=== PATIENT | female | born 1940 | race Caucasian/White ===

== ENCOUNTER 2018-05-21 10:33 | Observation (INO) | payer OTHER ==
[2018-05-21] MEDS: TIOTROPIUM INHALER/CAPSULE (SPIRIVA) INH (08:00)
[2018-05-21] MEDS: IPRATROPIUM 0.5MG/ALBUTEROL 2.5MG INH SOL UD 3ML (DUONEB)(J7620) NEB ×4 (11:08→19:56)
[2018-05-21 11:19] LABS: BASO % 0.3 % (0.0-1.0); EOS # 0.3 10^3/uL (0.0-0.50); EOS % 3.2 % (0.0-3.0); HEMATOCRIT 47.1 % (36.0-47.0); HEMOGLOBIN 14.9 g/dl (12.0-15.5); IMMATURE GRANULOCYTE % 0.5 % (0-3.0); LYMPH # 2.2 10^3/uL (1.5-4.5); LYMPH % 27.8 % (24.0-44.0); MEAN CORPUSCULAR HEMOGLOBIN 29.9 pg (27.0-33.0); MEAN CORPUSCULAR HGB CONC 31.6 g/dl (32.0-36.5); MEAN CORPUSCULAR VOLUME 94.4 fl (80.0-96.0); MONO % 13.2 % (0.0-5.0); NEUTROPHILS # 4.4 10^3/uL (1.8-7.7); PLATELET COUNT, AUTOMATED 172 10^3/uL (150-450); RED BLOOD COUNT 4.99 10^6/uL (4.00-5.40); RED CELL DISTRIBUTION WIDTH 15.8 % (11.5-14.5); WHITE BLOOD COUNT 7.9 10^3/uL (4.0-10.0)
[2018-05-21 11:38] LABS: VENOUS BASE EXCESS -3.6 (-2.0-2.0); VENOUS O2 SATURATION 79.4 % (60.0-80.0); VENOUS PARTIAL PRESSURE CO2 53.4 mmHg (38.0-50.0); VENOUS PARTIAL PRESSURE O2 41.6 mmHg (30.0-50.0); VENOUS PH 7.271 UNITS (7.330-7.430); VENOUS STANDARD HCO3 21.1 MEQ/L; VENOUS TOTAL CO2 25.7 MEQ/L (24.0-28.0)
[2018-05-21 11:50] LABS: LACTIC ACID SEPSIS PROTOCOL 1.8 MMOL/L (0.4-2.0)
[2018-05-21 11:51] LABS: ALBUMIN 3.3 GM/DL (3.2-5.2); ALBUMIN/GLOBULIN RATIO 1.03 (1.00-1.93); ALKALINE PHOSPHATASE 102 U/L (45-117); ALT/SGPT 18 U/L (12-78); ANION GAP 6 MEQ/L (8-16); AST/SGOT 9 U/L (7-37); BILIRUBIN,DIRECT 0.1 MG/DL (0.0-0.2); BILIRUBIN,TOTAL 0.3 MG/DL (0.2-1.0); BLOOD UREA NITROGEN 22 MG/DL (7-18); CALCIUM LEVEL 8.2 MG/DL (8.8-10.2); CARBON DIOXIDE LEVEL 30 MEQ/L (21-32); CHLORIDE LEVEL 106 MEQ/L (98-107); CK-MB VALUE MASS 1.9 NG/ML (<3.6); CPK CREATINE PHOSPHOKINASE 100 U/L (26-192); CREATININE FOR GFR 1.44 MG/DL (0.55-1.30); GLOMERULAR FILTRATION RATE 37.6 (>39); GLUCOSE, FASTING 134 MG/DL (70-100); POTASSIUM SERUM 4.8 MEQ/L (3.5-5.1); SODIUM LEVEL 142 MEQ/L (136-145); THYROXINE (T4) 8.3 UG/DL (4.5-12.0); TOTAL PROTEIN 6.5 GM/DL (6.4-8.2); TROPONIN I < 0.02 NG/ML (< 0.10)
[2018-05-21 11:56] LABS: NT-PRO BNP 685 PG/ML (<450)
[2018-05-21] MEDS: methylPREDNISolone INJ 125 MG/2 ML VIAL (J2930) IV (12:52)
[2018-05-21] MEDS: ALBUTEROL SULFATE 2.5 MG/0.5 ML INH NEB SOLN INH (13:43)
[2018-05-21] MEDS ORDERED: HEPARIN SOD (PORCINE) 5000 UNITS/ML VIAL SC (14:00)
[2018-05-21] MEDS ORDERED: BISACODYL 10 MG SUPP PR (14:30)
[2018-05-21] MEDS ORDERED: ONDANSETRON 4 MG TAB (S0181) PO (14:30)
[2018-05-21] MEDS ORDERED: ACETAMINOPHEN TAB 650MG DOSE (2X325MG) PO (14:30)
[2018-05-21] MEDS ORDERED: DEXTROSE 50% 50 ML SYRINGE IV (15:00)
[2018-05-21] MEDS ORDERED: GLUCOSE 4 GM CHEW TABLET PO (15:00)
[2018-05-21] MEDS ORDERED: zolPIDEM TARTRATE 10MG TAB PO (15:00)
[2018-05-21] MEDS ORDERED: GLUCAGON FOR INJ 1 MG VIAL (J1610) SC (15:00)
[2018-05-21] MEDS ORDERED: ALBUTEROL SULFATE 2.5 MG/0.5 ML INH NEB SOLN INH (15:00)
[2018-05-21] MEDS ORDERED: GABAPENTIN 100 MG CAP PO (16:00)
[2018-05-21] MEDS: ALBUTEROL 90 MCG/ACT 8GM HFA INHALER INH (16:00)
[2018-05-21] MEDS ORDERED: HumaLOG INSULIN (NovoLOG) PER UNIT SC (17:30)
[2018-05-21] MEDS ORDERED: metFORMIN (GLUCOPHAGE) 500 MG TAB PO (17:30)
[2018-05-21] MEDS: predniSONE 20 MG TAB PO (19:02)
[2018-05-21] MEDS ORDERED: SYMBICORT 160/4.5MCG INHALER 6GM INH (20:00)
[2018-05-21] MEDS ORDERED: ROSUVASTATIN 10 MG TAB (CRESTOR) PO (21:00)
[2018-05-22] MEDS ORDERED: metFORMIN (GLUCOPHAGE) 500 MG TAB PO (07:30)
[2018-05-22] MEDS ORDERED: PANTOPRAZOLE 20 MG TAB PO (09:00)
[2018-05-22] MEDS ORDERED: ISOSORBIDE MON. (IMDUR) 30 MG XR TAB PO (09:00)
[2018-05-22] MEDS ORDERED: CLOPIDOGREL 75 MG TAB PO (09:00)
[2018-05-22] MEDS ORDERED: LEVEMIR (INSULIN DETEMIR) 1 UNITS/0.01ML SC ×2 (09:00)
[2018-05-22] MEDS ORDERED: LISINOPRIL 40 MG TAB PO (09:00)
== END 2018-05-21 20:22 | disposition left against medical advice (07) ==
LOC: M ED INP 20:20 → M ED 10:33 → M ED INP 14:28
DX: J44.1 Chronic obstructive pulmonary disease with (acute) exacerbation (principal); Z53.20 Procedure and treatment not carried out because of patient's decision for unspecified reasons; E66.01 Morbid (severe) obesity due to excess calories; I25.10 Atherosclerotic heart disease of native coronary artery without angina pectoris; F17.210 Nicotine dependence, cigarettes, uncomplicated; I10 Essential (primary) hypertension; E78.4 Other hyperlipidemia; Z98.61 Coronary angioplasty status; E11.9 Type 2 diabetes mellitus without complications; Z79.51 Long term (current) use of inhaled steroids; Z79.899 Other long term (current) drug therapy; Z79.84 Long term (current) use of oral hypoglycemic drugs; Z91.040 Latex allergy status; Z88.5 Allergy status to narcotic agent
CPT/HCPCS: J2930

== ENCOUNTER → 2018-06-01 | Outpatient (REF) | payer OTHER ==
[2018-06-01 10:32] LABS: ANION GAP 9 MEQ/L (8-16); BLOOD UREA NITROGEN 55 MG/DL (7-18); CALCIUM LEVEL 8.3 MG/DL (8.8-10.2); CARBON DIOXIDE LEVEL 30 MEQ/L (21-32); CHLORIDE LEVEL 102 MEQ/L (98-107); CREATININE FOR GFR 1.83 MG/DL (0.55-1.30); GLOMERULAR FILTRATION RATE 28.5 (>39); GLUCOSE, FASTING 86 MG/DL (70-100); POTASSIUM SERUM 3.9 MEQ/L (3.5-5.1); SODIUM LEVEL 141 MEQ/L (136-145)
== END ==
LOC: M LAB REF 09:27
DX: I10 Essential (primary) hypertension (principal)
CPT/HCPCS: 80048

== ENCOUNTER → 2018-06-17 | Outpatient (REF) | payer OTHER ==
[2018-06-17 13:08] LABS: ANION GAP 8 MEQ/L (8-16); BLOOD UREA NITROGEN 50 MG/DL (7-18); CALCIUM LEVEL 8.3 MG/DL (8.8-10.2); CARBON DIOXIDE LEVEL 27 MEQ/L (21-32); CHLORIDE LEVEL 103 MEQ/L (98-107); CREATININE FOR GFR 1.61 MG/DL (0.55-1.30); GLUCOSE, FASTING 117 MG/DL (70-100); POTASSIUM SERUM 4.3 MEQ/L (3.5-5.1); SODIUM LEVEL 138 MEQ/L (136-145)
== END ==
LOC: M LAB REF 11:59
DX: N17.9 Acute kidney failure, unspecified (principal)
CPT/HCPCS: 80048

== ENCOUNTER → 2018-07-13 | Outpatient (CLI) | payer OTHER | LOC: M RAD 13:50 | DX: N18.3 Chronic kidney disease, stage 3 (moderate) (principal); N28.1 Cyst of kidney, acquired | CPT/HCPCS: 76775 ==

== ENCOUNTER 2018-09-28 16:45 | Emergency (ER) | payer OTHER ==
[~2018-09-28] VITALS: Ht 154.9 cm; Wt 95.0 kg
[~2018-09-28 16:45] MED LIST: /ADVA50050 INH; /ESOM40CA PO; /MOXI40TA PO; ADV500INH INH; ALB2.5NEB INH; ALBUPOW9 XX; ALBUTEROL NEB INH; CLOP75TA2 PO; COMBIN INH; CRES20TA PO; FARX1TAB3 PO; GABA-1171 PO; HYDR50TA2 PO; INSUH10VL SUBQ; ISOS10TAB PO; ISOS30TA4 PO; LISI40TAB PO; LISI5TAB PO; METF-414 PO; METF500T13 PO; NORC10TA21 PO; NOVOLOG SC; PANT20TA2 PO; PRED1TAB32 PO; PRED50TA PO; TRES1INJ2 SC; TYLE325T5 PO; VICO5TAB PO; ZOLP-189 PO
--- NOTE | 2018-09-28 17:29 | REP ---
Clinical: Cough/dyspnea. Comparison: 05/21/2018 Findings: Stable cardiomegaly and diffuse chronic interstitial changes are appreciated. Superimposed interstitial edema as well as trace basilar atelectasis cannot be excluded. No focal consolidation. No effusion. No pneumothorax. Skeletal structures stable. Impression: Limited portable examination cannot exclude mild interstitial edema or trace basilar atelectasis. Electronically Signed by Rommel Hogan MD 09/28/2018 05:21 P
[2018-09-28 17:34] LABS: VENOUS BASE EXCESS 1.1 (-2.0-2.0); VENOUS HCO3 32.1 MEQ/L (23.0-27.0); VENOUS O2 SATURATION 76.9 % (60.0-80.0); VENOUS PARTIAL PRESSURE CO2 84.7 mmHg (38.0-50.0); VENOUS PH 7.196 UNITS (7.330-7.430); VENOUS STANDARD HCO3 24.9 MEQ/L; VENOUS TOTAL CO2 34.7 MEQ/L (24.0-28.0)
[2018-09-28 17:36] LABS: BASO % 0.3 % (0.0-1.0); EOS # 0.1 10^3/uL (0.0-0.50); EOS % 0.8 % (0.0-3.0); HEMATOCRIT 44.1 % (36.0-47.0); HEMOGLOBIN 13.8 g/dl (12.0-15.5); LYMPH # 1.4 10^3/uL (1.5-4.5); LYMPH % 14.5 % (24.0-44.0); MEAN CORPUSCULAR HEMOGLOBIN 31.2 pg (27.0-33.0); MEAN CORPUSCULAR HGB CONC 31.3 g/dl (32.0-36.5); MEAN CORPUSCULAR VOLUME 99.8 fl (80.0-96.0); MONO # 0.8 10^3/uL (0.0-0.8); MONO % 8.2 % (0.0-5.0); NEUTROPHILS # 7.2 10^3/uL (1.8-7.7); NEUTROPHILS % 74.9 % (36.0-66.0); PLATELET COUNT, AUTOMATED 196 10^3/uL (150-450); RED BLOOD COUNT 4.42 10^6/uL (4.00-5.40); WHITE BLOOD COUNT 9.7 10^3/uL (4.0-10.0)
[2018-09-28] MEDS ORDERED: FURO20TA2 (17:36)
[2018-09-28] MEDS ORDERED: IPRATROPIUM 0.5MG/ALBUTEROL 2.5MG INH SOL UD 3ML (DUONEB)(J7620) NEB ONE (17:45)
[2018-09-28 17:52] LABS: INR 1.04; PROTHROMBIN TIME 13.7 SECONDS (12.1-14.4)
[2018-09-28 18:08] LABS: ALBUMIN 2.7 GM/DL (3.2-5.2); ALT/SGPT 17 U/L (12-78); BILIRUBIN,DIRECT < 0.1 MG/DL (0.0-0.2); BILIRUBIN,TOTAL 0.3 MG/DL (0.2-1.0); BLOOD UREA NITROGEN 34 MG/DL (7-18); CALCIUM LEVEL 7.1 MG/DL (8.8-10.2); CARBON DIOXIDE LEVEL 25 MEQ/L (21-32); CHLORIDE LEVEL 103 MEQ/L (98-107); CPK CREATINE PHOSPHOKINASE 135 U/L (26-192); CREATININE FOR GFR 1.57 MG/DL (0.55-1.30); GLUCOSE, FASTING 511 MG/DL (70-100); MB/CK RELATIVE INDEX 2.07 (< OR =4); NT-PRO BNP 485 PG/ML (<450); POTASSIUM SERUM 5.3 MEQ/L (3.5-5.1); SODIUM LEVEL 135 MEQ/L (136-145); TOTAL PROTEIN 5.3 GM/DL (6.4-8.2); TROPONIN I < 0.02 NG/ML (< 0.10)
[2018-09-28 18:16] VITALS: BP 136/80
[2018-09-28] MEDS ORDERED: FUROSEMIDE 40 MG/4 ML VIAL (J1940) IV ONE (18:30)
[2018-09-28] MEDS ORDERED: ALBUTEROL SULFATE 2.5 MG/0.5 ML INH NEB SOLN NEB ONE (18:30)
[2018-09-28] MEDS ORDERED: methylPREDNISolone INJ 125 MG/2 ML VIAL (J2930) IV ONE (18:30)
[2018-09-28] MEDS ORDERED: PRED20TA PO (19:39)
--- NOTE | 2018-09-28 19:58 | REPVR ---
EXAM: US Bilateral Duplex Lower Extremity Veins EXAM DATE/TIME: 09/28/2018 7:38 PM CLINICAL HISTORY: 78 years old, female; Signs and symptoms; Swelling (edema) of limb; Lower extremity, bilateral; Additional info: Swelling ? dvt TECHNIQUE: Real-time duplex ultrasound of the Bilateral Lower Extremities with 2-D jones scale, color Doppler flow and spectral waveform analysis. Complete exam focused on the bilateral lower extremity veins. COMPARISON: No relevant prior studies available. FINDINGS: Right deep veins: The common femoral, femoral and popliteal veins are patent without thrombus. Normal compressibility, augmentation response and Doppler waveforms. Right superficial veins: Saphenofemoral junction is patent without thrombus. Left deep veins: The common femoral, femoral and popliteal veins are patent without thrombus. Normal compressibility, augmentation response and Doppler waveforms. Left superficial veins: Saphenofemoral junction is patent without thrombus. Soft tissues: 3.8 x 0.7 x 1.7cm right Zaragoza's cyst with calcification. IMPRESSION: No evidence of deep venous thrombosis in the common femoral to popliteal veins bilaterally. 3.8 x 0.7 x 1.7cm right Zaragoza's cyst with calcification. Electronically signed by: Rommel Galindo On 09/28/2018 19:57:57 PM
--- NOTE | 2018-09-29 06:02 | ECGEPIP ---
Stationary ECG Study [facility] - ED Test Date: 2018-09-28 Pat Name: BRIGID JAEGER Department: Room: - Gender: F Spool Sorter: KARLI : 1940 Requested By: Saranya Mcpherson Order Number: [id number] Reading MD: Myles Mace Measurements Intervals [place] Rate: 67 P: -9 MS: 171 QRS: 44 QRSD: 72 T: 112 QT: 388 QTc: 410 Interpretive Statements SINUS RHYTHM NONSPECIFIC T-WAVE ABNORMALITY SIMILAR TO 05/21/18 Electronically Signed On 09-29-2018 6:01:58 EST by Myles Mace
== END 2018-09-28 20:04 | disposition home or self-care (01) ==
LOC: M ED 16:45 → EDBD 16:45 → M ED 20:04
DX: J44.9 Chronic obstructive pulmonary disease, unspecified (principal); I50.9 Heart failure, unspecified; I25.10 Atherosclerotic heart disease of native coronary artery without angina pectoris; E78.5 Hyperlipidemia, unspecified; I11.0 Hypertensive heart disease with heart failure; F17.210 Nicotine dependence, cigarettes, uncomplicated; Z98.61 Coronary angioplasty status
CPT/HCPCS: 36600; 71045; 80048; 80076; 82550; 82553; 82803; 83605; 83880; 84443; 84484; 85025; 85610; 87040; 87486; 87581; 87633; 87798; 93005; 93041; 93970; 94640; 94760; 96374; 96375; 99285; J1940; J2930

== ENCOUNTER 2019-02-24 00:05 | Emergency (ER) | payer MEDICARE ==
[~2019-02-24] VITALS: Ht 154.9 cm; Wt 96.4 kg
[~2019-02-24 00:05] MED LIST changes: -/ADVA50050 INH; -/ESOM40CA PO; -/MOXI40TA PO; +ADVA1AER2 INH; +ALLO10TA PO; +AMBI10TA PO; +AMLO5TAB6 PO; +ASPI81TA85 PO; +AVEL1TAB2 PO; +CALC1CAP31 PO; +COMBAER6 INH; +CRES20TA2 PO; +ELIQ5TAB PO; +FURO20TA2; +FURO20TA2 PO; +FURO40TA2 PO; -ISOS10TAB PO; +ISOS1TAB12 PO; +LISI-538 PO; +LISI40TA PO; -LISI40TAB PO; +NEXI1CAP3 PO; +NITR0.4S14 SL; -NORC10TA21 PO; +NORC1TAB5 PO; +NYST1POW9 TOP; +PLAV1TAB2 PO; +PRED10PA2 PO; +PRED20TA PO
[2019-02-24] MEDS ORDERED: CALC1CAP31 PO (00:27)
[2019-02-24] MEDS ORDERED: DICL1GEL3 (00:27)
[2019-02-24] MEDS ORDERED: NOVOINJ3 SC (00:27)
[2019-02-24] MEDS ORDERED: NORCO, ANEXSIA 5/325MG TABLET (HYDROcodone/ACETAMINOPHEN) PO ONE (01:00)
--- NOTE | 2019-02-24 02:50 | REPVR ---
EXAM: CT Cervical Spine Without Contrast EXAM DATE/TIME: 02/24/2019 1:29 AM CLINICAL HISTORY: 79 years old, female; Radicular pain (radiculopathy); Cervical region; Prior surgery; Surgery date: 6+ months; Surgery type: 5-7 cervical fusion; Additional info: Right cervical radiculopathy, prior c5-7 fusion TECHNIQUE: Imaging protocol: Axial computed tomography images of the cervical spine without contrast. Coronal and sagittal reformatted images were created and reviewed. Radiation optimization: All CT scans at this facility use at least one of these dose optimization techniques: automated exposure control; mA and/or kV adjustment per patient size (includes targeted exams where dose is matched to clinical indication); or iterative reconstruction. COMPARISON: CT Spine,cervical w/o contrast 10/10/2018 12:05 PM FINDINGS: Vertebrae: No acute cervical spine fracture. The facet alignment is preserved bilaterally. The occipital condyles and C1-C2 articulations appear intact. There is stable fusion of the C5-C7 vertebral bodies. Mild anterolisthesis of C4 on C5 and C7 on T1. The cervical lordosis is mildly reversed. Hypertrophic degenerative changes are identified at the junction of the anterior C1 arch and dens process. A stable small cystic or lytic lesion is visualized at the base of the dens process, likely secondary to arthropathy. Discs/Spinal canal/Neural foramina: Spondylosis is visualized at multiple cervical levels. Facet arthropathy is identified at multiple cervical levels. Other bones/joints: Arthropathy is identified at the left sternoclavicular joint. Soft tissues: The prevertebral soft tissues are unremarkable. Atherosclerotic changes visualized. Mastoid air cells: Mild effusions within the mastoid air cells, right side greater than left. Dental: An impacted tooth is visualized within the right side of the mandible. Lungs: A few small nodules are identified at the right pulmonary apex, the largest measuring 3-4 mm. No pneumothorax, as visualized. IMPRESSION: 1. No acute cervical spine fracture. 2. There is stable fusion of the C5-C7 vertebral bodies. 3. Mild anterolisthesis of C4 on C5 and C7 on T1. 4. The cervical lordosis is mildly reversed. 5. Spondylosis is visualized at multiple cervical levels. 6. A few small nodules are identified at the right pulmonary apex, the largest measuring 3-4 mm. See recommendation below. 7. Additional findings described above. FLEISCHNER SOLID LESS THAN 6 MULTIPLE For patients at low risk (minimal or absent history of smoking and of other known risk factors), no routine follow-up. For patient at high risk (history of smoking or of other known risk factors), recommend optional CT at 12 months. (Misha et al., Fleischner Society, 2017) Electronically signed by: Lonnie Hayden On 02/24/2019 02:50:03 AM
--- NOTE | 2019-02-24 03:10 | REPVR ---
EXAM: US Duplex Right Upper Extremity Veins, Limited EXAM DATE/TIME: 02/24/2019 1:22 AM CLINICAL HISTORY: 79 years old, female; Pain; Arn, upper; Right; Additional info: R/O dvt TECHNIQUE: Imaging protocol: Real-time Duplex ultrasound of the Right Upper Extremity with 2-D jones scale, color Doppler flow and spectral waveform analysis. Limited exam focused on the right upper extremity veins. COMPARISON: No relevant prior studies available. FINDINGS: Right deep veins: Axillary and brachial veins are patent throughout without thrombus. Normal compressibility and/or augmentation response. Visualized internal jugular vein is patent. Evaluation of the subclavian vein is limited. The subclavian vein is mildly heterogeneous in echogenicity, although flow is visualized within this vessel. Paired brachial veins are visualized, which are patent. Right superficial veins: Visualized cephalic and basilic veins are patent without thrombus. Soft tissues: Unremarkable. IMPRESSION: No evidence of occlusive deep vein thrombosis involving the right upper extremity, as visualized. Electronically signed by: Lonnie Hayden On 02/24/2019 03:09:48 AM
[2019-02-24 03:20] VITALS: BP 154/76
--- NOTE | 2019-02-24 06:19 | ECGEPIP ---
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
--- NOTE | 2019-02-25 14:02 | ED PDOC ---
Post-Departure Follow-Up michelle dow faxed formal report of ct c spine for fu Monique Rodrigues MD February 25, 2019 14:02
== END 2019-02-24 03:30 | disposition home or self-care (01) ==
LOC: M ED 00:05
DX: M54.12 Radiculopathy, cervical region (principal); E11.9 Type 2 diabetes mellitus without complications; I11.0 Hypertensive heart disease with heart failure; I50.9 Heart failure, unspecified; I48.91 Unspecified atrial fibrillation; G62.9 Polyneuropathy, unspecified; Z95.5 Presence of coronary angioplasty implant and graft; Z79.899 Other long term (current) drug therapy; Z79.82 Long term (current) use of aspirin; Z79.01 Long term (current) use of anticoagulants; Z88.5 Allergy status to narcotic agent; Z88.8 Allergy status to other drugs, medicaments and biological substances; Z91.040 Latex allergy status; F17.210 Nicotine dependence, cigarettes, uncomplicated

== ENCOUNTER 2019-03-01 05:36 | Emergency (ER) | payer MEDICARE ==
[~2019-03-01] VITALS: Ht 154.9 cm; Wt 92.7 kg
[~2019-03-01 05:36] MED LIST changes: +DICL1GEL3; +NOVOINJ3 SC
[2019-03-01 06:28] LABS: BASO % 0.4 % (0.0-1.0); EOS # 0.2 10^3/uL (0.0-0.50); EOS % 2.2 % (0.0-3.0); HEMATOCRIT 44.2 % (36.0-47.0); HEMOGLOBIN 14.2 g/dl (12.0-15.5); LYMPH # 1.8 10^3/uL (1.5-4.5); LYMPH % 21.8 % (24.0-44.0); MEAN CORPUSCULAR HEMOGLOBIN 30.3 pg (27.0-33.0); MEAN CORPUSCULAR HGB CONC 32.1 g/dl (32.0-36.5); MEAN CORPUSCULAR VOLUME 94.4 fl (80.0-96.0); MONO # 1.5 10^3/uL (0.0-0.8); NEUTROPHILS # 4.5 10^3/uL (1.8-7.7); NEUTROPHILS % 56.2 % (36.0-66.0); PLATELET COUNT, AUTOMATED 175 10^3/uL (150-450); RED BLOOD COUNT 4.68 10^6/uL (4.00-5.40)
[2019-03-01] MEDS ORDERED: PREGABALIN 75 MG CAP(LYRICA) PO ONE (06:30)
[2019-03-01 06:46] LABS: BLOOD UREA NITROGEN 35 MG/DL (7-18); CALCIUM LEVEL 9.2 MG/DL (8.8-10.2); CARBON DIOXIDE LEVEL 30 MEQ/L (21-32); CHLORIDE LEVEL 101 MEQ/L (98-107); CPK CREATINE PHOSPHOKINASE 146 U/L (26-192); GLOMERULAR FILTRATION RATE 38.7 (>39); GLUCOSE, FASTING 119 MG/DL (70-100); MB/CK RELATIVE INDEX 1.44 (< OR =4); NT-PRO BNP 230 PG/ML (<450); SODIUM LEVEL 138 MEQ/L (136-145); TROPONIN I < 0.02 NG/ML (< 0.10)
[2019-03-01] MEDS ORDERED: LISI-538 PO (06:59)
[2019-03-01] MEDS ORDERED: GABA-1171 PO (06:59)
[2019-03-01] MEDS ORDERED: ELIQ5TAB PO (06:59)
[2019-03-01] MEDS ORDERED: ALPR0.25 PO (06:59)
[2019-03-01] MEDS ORDERED: KETO2CR TOP (06:59)
--- NOTE | 2019-03-01 08:10 | REPVR ---
EXAM: US Duplex Right Upper Extremity Veins, Limited EXAM DATE/TIME: 03/01/2019 7:34 AM CLINICAL HISTORY: 79 years old, female; Pain; Hand; Right; Additional info: Right arm pain TECHNIQUE: Imaging protocol: Real-time Duplex ultrasound of the Right Upper Extremity with 2-D jones scale, color Doppler flow and spectral waveform analysis. Limited exam focused on the right upper extremity veins. COMPARISON: US DUPLEX EXT UPPER VEINS UNILATE RIGHT 02/24/2019 12:54 AM FINDINGS: Right deep veins: Unremarkable. Axillary and brachial veins are patent throughout without thrombus. Normal Doppler waveforms. Normal compressibility and/or augmentation response. Visualized internal jugular and subclavian veins are patent. Right superficial veins: Unremarkable. Visualized cephalic and basilic veins are patent without thrombus. Soft tissues: Unremarkable. IMPRESSION: No acute findings. No evidence of deep vein thrombosis. Electronically signed by: Olive Haynes On 03/01/2019 08:09:50 AM
[2019-03-01 08:30] VITALS: BP 177/71
--- NOTE | 2019-03-01 08:33 | REP ---
Clinical: Cough and dyspnea . Comparison: 10/10/2018 . Findings: The mediastinum and cardiac silhouette are stable. Mild cardiomegaly and chronic interstitial changes are again suggested. No obvious acute consolidation, effusion, or pneumothorax. Skeletal structures are intact. Impression: Chronic stable changes. Electronically Signed by Rommel Hogan MD 03/01/2019 08:25 A
--- NOTE | 2019-03-01 08:35 | REP ---
Clinical: Right upper extremity pain. Technique: AP, lateral, bilateral oblique views of the right hand. Findings: Generalized osteodystrophy and moderate arthritic degenerative changes are appreciated throughout the hand and wrist. No acute fracture or dislocation. No subcutaneous emphysema or radiodense foreign body. Impression: Generalized osteodystrophy and arthritic degenerative changes. Electronically Signed by Rommel Hogan MD 03/01/2019 08:27 A
--- NOTE | 2019-03-01 08:36 | REP ---
Clinical: Right upper extremity pain. Technique: AP and lateral views of the right humerus. Findings: Age-related changes at the shoulder and elbow joint noted. No acute fracture dislocation. No subcutaneous emphysema or radiodense foreign body. Impression: Essentially age-appropriate right humerus radiographs. Electronically Signed by Rommel Hogan MD 03/01/2019 08:28 A
[2019-03-01] MEDS ORDERED: physical therapy (08:49)
--- NOTE | 2019-03-01 08:59 | REP ---
Clinical: Right upper extremity pain. Technique: AP and lateral views of the right forearm. Findings: Generalized age-related changes are appreciated. No acute fracture or dislocation. No significant foreign body. No subcutaneous emphysema. Vascular calcifications noted. Impression: No obvious acute pathology. Electronically Signed by Rommel Hogan MD 03/01/2019 08:50 A
[2019-03-01] MEDS ORDERED: LIDOCAINE 5% (LIDODERM) PATCH TD ONE (09:15)
[2019-03-01] MEDS ORDERED: ISOSORBIDE MON. (ISMO,MONOKET) 20 MG TAB PO ONE (09:15)
[2019-03-01] MEDS ORDERED: CLOPIDOGREL 75 MG TAB PO ONE (09:15)
[2019-03-01] MEDS ORDERED: LISINOPRIL 20 MG TAB PO ONE (09:15)
[2019-03-01] MEDS ORDERED: FUROSEMIDE 40 MG TAB PO ONE (09:15)
[2019-03-01] MEDS ORDERED: ISOSORBIDE MON. (IMDUR) 30 MG XR TAB PO ONE (09:45)
[2019-03-01] MEDS ORDERED: LYRI75CA PO (09:49)
[2019-03-01] MEDS ORDERED: LIDO5DIS41 TOP (09:51)
[2019-03-01 09:54] VITALS: BP 177/71
[2019-03-01] MEDS ORDERED: **NOTE PATIENT COMMENT** MISC XX SCH (21:00)
--- NOTE | 2019-03-01 21:01 | ECGEPIP ---
[facility] - ED Test Date: 2019-03-01 Pat Name: BRIGID JAEGER Department: Room: - Gender: Female Manager Service Desk: richa : 1940 Requested By: JAIR Sanders Order Number: [id number] Reading MD: Saranya Mcpherson Measurements Intervals [place] Rate: 61 P: 30 [place]: 185 QRS: 52 QRSD: 86 T: 110 QT: 416 QTc: 421 Interpretive Statements SINUS RHYTHM NONSPECIFIC T-WAVE ABNORMALITY Electronically Signed on 03-01-2019 21:01:01 EDT by Saranya Mcpherson
== END 2019-03-01 10:02 | disposition home or self-care (01) ==
LOC: M ED 05:36
DX: M54.2 Cervicalgia (principal); R06.02 Shortness of breath; J44.9 Chronic obstructive pulmonary disease, unspecified; I48.91 Unspecified atrial fibrillation; Z79.899 Other long term (current) drug therapy; Z79.4 Long term (current) use of insulin; Z79.01 Long term (current) use of anticoagulants; Z88.5 Allergy status to narcotic agent; Z88.8 Allergy status to other drugs, medicaments and biological substances; Z91.040 Latex allergy status; F17.210 Nicotine dependence, cigarettes, uncomplicated

== ENCOUNTER 2019-03-26 11:23 | Inpatient (IN) | payer MEDICARE ==
[~2019-03-26] VITALS: Ht 154.9 cm; Wt 103.6 kg
[~2019-03-26 11:23] MED LIST changes: +ALPR0.25 PO; +KETO2CR TOP; +LIDO5DIS41 TOP; +LYRI75CA PO; +physical therapy
[2019-03-26 12:07] LABS: BASO % 0.2 % (0.0-1.0); EOS # 0.1 10^3/uL (0.0-0.50); HEMATOCRIT 40.8 % (36.0-47.0); HEMOGLOBIN 12.9 g/dl (12.0-15.5); LYMPH # 1.8 10^3/uL (1.5-4.5); MEAN CORPUSCULAR HEMOGLOBIN 30.4 pg (27.0-33.0); MEAN CORPUSCULAR HGB CONC 31.6 g/dl (32.0-36.5); MONO # 0.9 10^3/uL (0.0-0.8); MONO % 8.6 % (0.0-5.0); NEUTROPHILS # 7.6 10^3/uL (1.8-7.7); NEUTROPHILS % 72.8 % (36.0-66.0); PLATELET COUNT, AUTOMATED 186 10^3/uL (150-450); RED BLOOD COUNT 4.25 10^6/uL (4.00-5.40); WHITE BLOOD COUNT 10.4 10^3/uL (4.0-10.0)
--- NOTE | 2019-03-26 12:30 | REP ---
CHEST, PORTABLE: AP portable view of the chest is performed and compared to prior study, 03/01/2019. There is mild cardiomegaly and vascular congestion with increased interstitial markings in the lung bases, compatible with interstitial edema. There is calcification of the thoracic aorta. The mediastinal silhouette is unchanged. IMPRESSION: Findings compatible with mild CHF and interstitial edema. Electronically Signed by Hossein Larson MD 03/26/2019 12:53 P
[2019-03-26 12:34] LABS: CALCIUM LEVEL 8.8 MG/DL (8.8-10.2); CREATININE FOR GFR 1.51 MG/DL (0.55-1.30); GLOMERULAR FILTRATION RATE 35.5 (>39); POTASSIUM SERUM 5.2 MEQ/L (3.5-5.1)
[2019-03-26] MEDS ORDERED: DICL1GEL3 TOP (13:03)
[2019-03-26] MEDS ORDERED: LYRI75CA PO (13:03)
[2019-03-26] MEDS ORDERED: GABA-1171 PO (13:03)
[2019-03-26] MEDS ORDERED: PRED10TA2 PO (13:03)
[2019-03-26] MEDS ORDERED: ELIQ2.5T PO (13:03)
[2019-03-26] MEDS ORDERED: LIDO1PAD TOP (13:03)
[2019-03-26] MEDS ORDERED: dexameTHASONE 20 MG/5 ML VIAL (J1100) IV ONE (13:45)
[2019-03-26] MEDS ORDERED: IPRATROPIUM 0.5MG/ALBUTEROL 2.5MG INH SOL UD 3ML (DUONEB)(J7620) NEB ONE (13:45)
[2019-03-26] MEDS ORDERED: ALBUTEROL SULFATE 2.5 MG/0.5 ML INH NEB SOLN INH ONE (13:45)
[2019-03-26] MEDS ORDERED: FUROSEMIDE 40 MG/4 ML VIAL (J1940) IV ONE (13:45)
[2019-03-26 14:39] VITALS: BP 158/72
[2019-03-26] MEDS ORDERED: GLUCOSE 4 GM CHEW TABLET PO PRN (15:00)
[2019-03-26] MEDS ORDERED: IPRATROPIUM 0.5MG/ALBUTEROL 2.5MG INH SOL UD 3ML (DUONEB)(J7620) NEB PRN (15:00)
[2019-03-26] MEDS ORDERED: GLUCAGON FOR INJ 1 MG VIAL (J1610) SC PRN (15:00)
[2019-03-26] MEDS ORDERED: DEXTROSE 50% 50 ML SYRINGE IV PRN (15:00)
[2019-03-26] MEDS: cefTRIAXone SOD 2 GM in D5W MINI-BAG PLUS 50 ML IV SCH (15:37)
[2019-03-26 16:00] VITALS: BP 135/61
[2019-03-26] MEDS: DOXYCYCLINE HYCLATE 100 MG in D5W MINI-BAG PLUS 100 ML IV SCH (16:14)
[2019-03-26] MEDS: FUROSEMIDE 100 MG/10 ML VIAL (J1940) IV SCH (17:17)
[2019-03-26] MEDS: HumaLOG INSULIN (NovoLOG) PER UNIT SC SCH ×2 (17:18→21:33)
--- NOTE | 2019-03-26 17:37 | HPE ---
DATE OF ADMISSION: 03/26/2019 PRIMARY CARE PROVIDER: JACKIE Padron PRINCIPLE DIAGNOSES: Exacerbation of COPD secondary to bronchitis in patient with diastolic congestive heart failure. HISTORY: 79-year-old patient of Nikko Clifton. She has been treated as an outpatient for what seems to be exacerbation of COPD with prednisone and nebulized bronchodilators. Sputum became green, thick and her shortness of breath and increased. Lower extremity edema increased and she developed dyspnea on exertion. She was brought to the emergency room. Oxygen saturations in the mid 80s so she is being admitted for inpatient treatment. PAST MEDICAL HISTORY: She has a past history of COPD. She continues to smoke, having quit just a week ago. I do not have spirometric data to quantitate her COPD, but she has frequent exacerbations requiring steroid therapy and she is on chronic bronchodilator therapy at home. She had an echocardiogram done 10/2018, ejection fraction 60%. Aortic sclerosis without significant stenosis. Grade 2 diastolic dysfunction noted. She has atrial fibrillation for which she is on chronic anticoagulant therapy with Eliquis. Has history of type 2 diabetes for which she is on insulin, both basal insulin and daily sliding scale. OTHER PAST HISTORY: Hypertensive heart disease. Hyperlipidemia. Gastroesophageal reflux disease (GERD). Coronary artery disease, status post stenting, unspecified coronary artery about 10 years ago. Diabetic neuropathy. Morbid obesity. Dyspepsia for which she is on chronic PPI therapy. ALLERGIES: CODEINE causes a headache. GABAPENTIN causes a headache. OXYCODONE causes unknown reaction, trouble breathing. FAMILY HISTORY: Noncontributory. SOCIAL HISTORY: Smoked a half pack to pack a day for 40 years, quit a week ago. Denies any alcohol use. Recently . REVIEW OF SYSTEMS: Denies hemoptysis, unexplained weight loss, chest pain, palpitations, syncope, epistaxis, rectal bleeding, hematuria. MEDICATIONS: See intake summary. PHYSICAL EXAMINATION: VITAL SIGNS: Per flow sheet. General appearance: Chronically ill appearing obese, looks dyspneic at rest. HEENT: Pupils equal, reactive to light. TMs and oropharynx benign. NECK: No masses. LUNGS: Expiratory wheezes all chau. Scattered rhonchi. HEART: Irregular rate and rhythm. 1/6 systolic ejection murmur. ABDOMEN: Soft, obese. Nontender. No masses. EXTREMITIES: 1+ peripheral edema. Venous stasis dermatitis. Some decreased pulses in feet, probably from the edema. Moves arms and legs with equal strength. Chest x-ray shows increased interstitial markings consistent with fluid. Telemetry shows atrial fibrillation, controlled rate. White count 10.3, hemoglobin 13.7, platelets 183. Sodium 134, potassium 5.2, BUN 32, creatinine 1.5. Glucose 136. IMPRESSION: 1. Exacerbation of COPD from presumed bronchitis. To look at her chest x-ray, I think there might be an infiltrate in there. She is quite dyspneic. I think it is a combination of diastolic heart failure and COPD exacerbation. Towards the COPD, I have ordered nebulized bronchodilator, intravenous steroids, Solu-Medrol 60 mg IV every 12 hours, supplemental oxygen to make oxygen saturation greater than 90% and empiric antibiotic therapy with Rocephin 2 grams IV daily and doxycycline 100 mg twice a day. Sputum studies have been ordered. Ordering a noncontrast CT of the chest and try to delineate the infiltrates better. 2. Diastolic congestive heart failure with exacerbation. PLAN: 1. She is on restricted salt diet of 1800 mL per day. Intravenous furosemide, 80 mg every 6 hours as needed. May need a diuresis of 1.2 liters per day. Continue her angiotensin-converting enzyme (MANDEEP) inhibitor therapy. Close attention to potassium. She had an echocardiogram done in October so this is not being repeated. She has known diastolic failure. 2. Stage III chronic kidney disease. Daily labs have been ordered. She follows with Dr. Toro, felter tennis balls. Renal function is currently at baseline. Avoid syndrome of nonsteroidal anti-inflammatory drug (NSAID). Dose medication appropriately for renal function. 3. Diabetes. She is on a sliding scale of insulin coverage per protocol. I have reduced her basal insulin to 40 units per day in the face of an enforced hospital based diet. 4. Hypertensive heart disease. Continue lisinopril 20 mg daily. 5. Atrial fibrillation. Her rate is controlled. She is on no chronotropic agents and maintains a normal heart rate. Suggested some element of AV dysfunction. She is on telemetry. Continue her Eliquis. 6. Tobacco abuse. Smoking cessation was discussed. 7. Coronary artery disease. Status post stent about 10 years ago. Continue her aspirin. 8. Hyperlipidemia. Continue her rosuvastatin. Hospitalist will assume her care after admission.
--- NOTE | 2019-03-26 17:37 | REP ---
CT of the chest without IV contrast: Comparison is the portable chest performed earlier today. There are no infiltrates. There are no pleural effusions. There is a 15 mm left upper lobe ground-glass density on image 19. There is a linear density anteriorly in the right upper lobe on image 28. This could represent discoid atelectasis or parenchymal scar. There is no mediastinal lymph node enlargement. There is no axillary lymph node enlargement. The study is insensitive for hilar lymph node enlargement in the absence of IV contrast. The thoracic aorta is unremarkable except for calcified atheroma. Cardiac size is normal. There is no pericardial effusion. The visualized upper abdominal contents are unremarkable. Impression: There are no infiltrates or pleural effusions. There is a 15 ml left upper lobe ground-glass density. Recommend follow-up in 3- 4 months. Right upper lobe linear density likely parenchymal scar or discoid atelectasis. Electronically Signed by Hossein Francis MD 03/26/2019 05:28 P
[2019-03-26] MEDS: IPRATROPIUM 0.5MG/ALBUTEROL 2.5MG INH SOL UD 3ML (DUONEB)(J7620) NEB SCH (21:14)
[2019-03-26] MEDS: APIXABAN 2.5 MG TAB (ELIQUIS) PO SCH (21:33)
[2019-03-26] MEDS: PREGABALIN 75 MG CAP(LYRICA) PO SCH (21:33)
[2019-03-26] MEDS: ROSUVASTATIN 10 MG TAB (CRESTOR) PO SCH (21:33)
[2019-03-26] MEDS: KETOCONAZOLE 2% CREAM TOP SCH (21:34)
[2019-03-26 22:00] VITALS: BP 130/60
[2019-03-26] MEDS: guaiFENesin SYRUP 200 MG/10 ML UDC PO PRN (22:52)
[2019-03-27] VITALS (7 sets, daily range): BP systolic 115–153; BP diastolic 50–69; O2SAT 91
[2019-03-27] MEDS: FUROSEMIDE 100 MG/10 ML VIAL (J1940) IV SCH ×2 (00:17→05:57)
[2019-03-27] MEDS: IPRATROPIUM 0.5MG/ALBUTEROL 2.5MG INH SOL UD 3ML (DUONEB)(J7620) NEB SCH ×4 (01:24→20:00)
[2019-03-27] MEDS: DOXYCYCLINE HYCLATE 100 MG in D5W MINI-BAG PLUS 100 ML IV SCH (04:31)
[2019-03-27] MEDS: guaiFENesin SYRUP 200 MG/10 ML UDC PO PRN ×3 (04:32→11:33)
[2019-03-27 05:02] LABS: HEMATOCRIT 39.7 % (36.0-47.0); MEAN CORPUSCULAR HEMOGLOBIN 30.7 pg (27.0-33.0); MEAN CORPUSCULAR HGB CONC 32.7 g/dl (32.0-36.5); MEAN CORPUSCULAR VOLUME 93.6 fl (80.0-96.0); PLATELET COUNT, AUTOMATED 194 10^3/uL (150-450); RED BLOOD COUNT 4.24 10^6/uL (4.00-5.40); WHITE BLOOD COUNT 8.4 10^3/uL (4.0-10.0)
[2019-03-27 05:20] LABS: CALCIUM LEVEL 8.9 MG/DL (8.8-10.2); CREATININE FOR GFR 1.63 MG/DL (0.55-1.30); GLOMERULAR FILTRATION RATE 32.5 (>39); POTASSIUM SERUM 4.4 MEQ/L (3.5-5.1)
[2019-03-27] MEDS: methylPREDNISolone INJ 125 MG/2 ML VIAL (J2930) IV SCH ×2 (05:57→18:32)
[2019-03-27] MEDS: HumaLOG INSULIN (NovoLOG) PER UNIT SC SCH ×4 (09:03→20:43)
[2019-03-27] MEDS: APIXABAN 2.5 MG TAB (ELIQUIS) PO SCH ×2 (10:03→20:44)
[2019-03-27] MEDS: ALPRAZolam 0.25 MG TAB PO SCH (10:03)
[2019-03-27] MEDS: PANTOPRAZOLE 20 MG TAB PO SCH (10:03)
[2019-03-27] MEDS: LEVEMIR (INSULIN DETEMIR) 1 UNITS/0.01ML SC SCH (10:03)
[2019-03-27] MEDS: ASPIRIN 81 MG ENTERIC TAB PO SCH (10:03)
[2019-03-27] MEDS: LISINOPRIL 20 MG TAB PO SCH (10:04)
[2019-03-27] MEDS: PREGABALIN 75 MG CAP(LYRICA) PO SCH ×2 (10:04→20:44)
[2019-03-27] MEDS: ISOSORBIDE MON. (IMDUR) 30 MG XR TAB PO SCH (10:04)
[2019-03-27] MEDS: ALLOPURINOL 100 MG TAB PO SCH (10:04)
[2019-03-27] MEDS: KETOCONAZOLE 2% CREAM TOP SCH ×2 (10:05→20:44)
[2019-03-27] MEDS: NYSTATIN 100,000 UNITS/GM TOPICAL PWD 15 GM TOP PRN (10:09)
[2019-03-27] MEDS ORDERED: CEPACOL LOZENGE PO PRN (11:30)
[2019-03-27] MEDS: SYMBICORT 160/4.5MCG INHALER 6GM INH SCH ×2 (12:26→21:27)
[2019-03-27] MEDS ORDERED: SLF 3 ML SYR IV PRN (12:30)
--- NOTE | 2019-03-27 12:51 | IPNPDOC ---
Date Seen The patient was seen on 03/27/19. Progress Note SUBJECTIVE: Patient is a 79-year-old female with shortness of breath. Patient is evaluated at bedside this morning. She is sitting up in a chair at bedside. She continues to experience shortness of breath with minimal exertion. She does not wear oxygen at home. She does smoke. She was coughing which was productive of yellow/green phlegm. No fevers, night sweats, but has been e xperiencing chills. She had to ask for a more blankets. Admits to a sore throat. Does not report any lower extremity swelling. Says that prior to her presentation to the hospital she was gasping for air and struggling to breath. She sleeps on four pillows at night, but that is typical for her. OBJECTIVE PHYSICAL EXAMINATION: VITAL SIGNS: Please see below. GENERAL: Well nourished, well developed female, alert and conversant, answers questions appropriately, no acute distress. HEENT: Atraumatic, normocephalic, PERRL, EOMI, oral mucosa appears pink and moist, nasal septum appears midline, nares are patent. CARDIOVASCULAR: Regular rate and rhythm, normal S1 and S2, no murmur, rub, click. RESPIRATORY: Diminished airway entry throughout, no definite wheeze, rhonchi, or crackles. ABDOMINAL: Round, soft, non-tender, non-distended, bowel sounds appreciated. EXTREMITIES: Chronic venous stasis changes, trace edema, no clubbing, no cyanosis. NEUROLOGICAL: CN II-XII grossly intact. PSYCHOLOGICAL: Mood and affect appropriate. LABORATORY DATA, IMAGING STUDIES, MICROBIOLOGY: Please see below. DVT prophylaxis ordered?: Eliquis 2.5mg PO BID. ASSESSMENT AND PLAN: This is a 79-year-old female with shortness of breath secondary to COPD exacerbation. PROBLEMS: 1. Shortness of breath secondary to COPD exacerbation C/W Duoneb's C/W SoluMedrol (holding home dose of Prednisone) C/W Guaifenesin syrup Added Symbicort, incentive spirometry Oxygen therapy and titrate to keep oxygen 88-92% Sputum culture: many WBCs, few epithelial cells, moderate gram + cocci in clusters and chains, few gram - rods, few gram - cocci Sputum culture pending Blood cultures negative Procalcitonin ordered C/W Ceftriaxone S/P Doxycycline Added Azithromycin Smoking cessation counseling, Nicotine replacement patch C/W Cepacol lozenges 2. Diabetes mellitus with diabetic neuropathy C/W SSI AC/HS, FSBS AC/HS, hypoglycemic protocol, consistent carbohydrate diet C/W Levemir 40 units SQ daily C/W Lyrica 3. Paroxysmal atrial fibrillation C/W Eliquis 4. CKD, stage III Baseline creatinine 1.5 Avoid nephrotoxic agents 5. HTN C/W Lisinopril, Imdur 6. Grade 2 diastolic dysfunction, LVEF 60% S/P Furosemide 80mg IV Q12H Restarted home dose of Furosemide 40mg PO BID 3. Gout C/W Allopurinol 4. Anxiety C/W Xanax 7. DLP C/W Crestor DISPOSITION: Pending clinical improvement. VS, I&O, 24H, Fishbone Vital Signs/I&O Vital Signs Date Time Temp Pulse Resp B/P (MAP) Pulse Ox O2 Delivery O2 Flow Rate FiO2 03/27/19 10:04 136/58 03/27/19 08:00 97.2 59 19 90 03/26/19 22:00 03/26/19 14:15 Nasal Cannula I&O- Last 24 Hours up to 6 AM 03/27/19 06:00 Intake Total 930 ml Output Total 2375 ml Balance -1445 ml Laboratory Data 24H LABS Laboratory Tests 2 03/26/19 16:57: Bedside Glucose (Misc Panel) 134H 03/26/19 20:10: Bedside Glucose (Misc Panel) 279H 03/27/19 04:39: Nucleated Red Blood Cells % (auto) 0.0, Anion Gap 7L, Glomerular Filtration Rate 32.5L, Blood Urea Nitrogen 38H, Creatinine 1.63H, Sodium Level 134L, Potassium Level 4.4, Chloride Level 94L, Carbon Dioxide Level 33H, Calcium Level 8.9 03/27/19 12:14: Bedside Glucose (Misc Panel) 298H CBC/BMP Laboratory Tests 03/27/19 04:39 Red Blood Count 4.24, Mean Corpuscular Volume 93.6, Mean Corpuscular Hemoglobin 30.7, Mean Corpuscular Hemoglobin Concent 32.7, Red Cell Distribution Width 15.0 H, Calcium Level 8.9 Microbiology Microbiology 03/26/19 Blood Culture - Preliminary, Resulted No growth after 24 hours . All specim... 03/26/19 Blood Culture - Preliminary, Resulted No growth after 24 hours . All specim... 03/26/19 Gram Stain - Final, Resulted 03/26/19 Sputum Culture, Resulted Pending NEY GUILLEN DO Mar 27, 2019 12:51
[2019-03-27] MEDS ORDERED: HumaLOG INSULIN (NovoLOG) PER UNIT SC ONE (13:30)
[2019-03-27] MEDS: NICOTINE 14 MG/24 HR TRANSDERMAL TD SCH (13:52)
[2019-03-27] MEDS: AZITHROMYCIN INJ 500 MG, VIAL MATE ADAPTER 1 EACH in D5W 250 ML IV SCH (13:53)
[2019-03-27] MEDS: SLF 3 ML SYR IV SCH ×2 (14:25→20:45)
[2019-03-27] MEDS ORDERED: DEXTROMETHORPHAN 60MG/10ML SUSP 90ML BTL(DELSYM) PO PRN (18:15)
[2019-03-27] MEDS: FUROSEMIDE 40 MG TAB PO SCH (18:31)
[2019-03-27] MEDS: cefTRIAXone SOD 2 GM in D5W MINI-BAG PLUS 50 ML IV SCH (18:33)
[2019-03-27] MEDS: ROSUVASTATIN 10 MG TAB (CRESTOR) PO SCH (20:44)
[2019-03-27] MEDS: guaiFENesin ER 600 MG TAB PO SCH (20:44)
[2019-03-27] MEDS: **NOTE PATIENT COMMENT** MISC XX SCH (20:45)
[2019-03-27] MEDS ORDERED: GABAPENTIN 100 MG CAP PO SCH (21:00)
[2019-03-28] VITALS (7 sets, daily range): BP systolic 115–145; BP diastolic 56–64
[2019-03-28] MEDS: IPRATROPIUM 0.5MG/ALBUTEROL 2.5MG INH SOL UD 3ML (DUONEB)(J7620) NEB SCH ×4 (01:53→20:00)
[2019-03-28 05:18] LABS: HEMATOCRIT 37.7 % (36.0-47.0); HEMOGLOBIN 12.4 g/dl (12.0-15.5); MEAN CORPUSCULAR HEMOGLOBIN 30.6 pg (27.0-33.0); MEAN CORPUSCULAR HGB CONC 32.9 g/dl (32.0-36.5); MEAN CORPUSCULAR VOLUME 93.1 fl (80.0-96.0); PLATELET COUNT, AUTOMATED 180 10^3/uL (150-450); RED BLOOD COUNT 4.05 10^6/uL (4.00-5.40)
[2019-03-28] MEDS: SLF 3 ML SYR IV SCH ×3 (05:27→20:59)
[2019-03-28] MEDS: methylPREDNISolone INJ 125 MG/2 ML VIAL (J2930) IV SCH ×2 (05:27→17:59)
[2019-03-28 05:41] LABS: CALCIUM LEVEL 8.5 MG/DL (8.8-10.2); CREATININE FOR GFR 1.91 MG/DL (0.55-1.30); GLOMERULAR FILTRATION RATE 27.1 (>39); POTASSIUM SERUM 4.5 MEQ/L (3.5-5.1)
--- NOTE | 2019-03-28 06:36 | ECGEPIP ---
[facility] - ED Test Date: 2019-03-26 Pat Name: BRIGID JAEGER Department: Room: - Gender: Female Clinical Nursing Assistant: ALEJANDRO : 1940 Requested By: Myles Lucero Order Number: [id number] Reading MD: Myles Mace Measurements Intervals [place] Rate: 69 P: SC: 171 QRS: 43 QRSD: 81 T: 93 QT: 389 QTc: 418 Interpretive Statements SINUS RHYTHM NSTTW ABNORMALITIES SIMILAR TO 03/01/19 Electronically Signed on 03-28-2019 6:35:52 EDT by Myles Mace
[2019-03-28] MEDS: SYMBICORT 160/4.5MCG INHALER 6GM INH SCH ×2 (07:51→20:17)
[2019-03-28] MEDS: LEVEMIR (INSULIN DETEMIR) 1 UNITS/0.01ML SC SCH (08:24)
[2019-03-28] MEDS: NICOTINE 14 MG/24 HR TRANSDERMAL TD SCH (08:25)
[2019-03-28] MEDS: ALPRAZolam 0.25 MG TAB PO SCH (08:25)
[2019-03-28] MEDS: HumaLOG INSULIN (NovoLOG) PER UNIT SC SCH ×4 (08:25→20:58)
[2019-03-28] MEDS: PREGABALIN 75 MG CAP(LYRICA) PO SCH ×2 (08:26→20:58)
[2019-03-28] MEDS: PANTOPRAZOLE 20 MG TAB PO SCH (08:26)
[2019-03-28] MEDS: NYSTATIN 100,000 UNITS/GM TOPICAL PWD 15 GM TOP PRN (08:26)
[2019-03-28] MEDS: APIXABAN 2.5 MG TAB (ELIQUIS) PO SCH ×2 (08:26→20:58)
[2019-03-28] MEDS: ASPIRIN 81 MG ENTERIC TAB PO SCH (08:26)
[2019-03-28] MEDS: KETOCONAZOLE 2% CREAM TOP SCH ×2 (08:26→20:59)
[2019-03-28] MEDS: LISINOPRIL 20 MG TAB PO SCH (08:27)
[2019-03-28] MEDS: FUROSEMIDE 40 MG TAB PO SCH (08:27)
[2019-03-28] MEDS: ISOSORBIDE MON. (IMDUR) 30 MG XR TAB PO SCH (08:27)
[2019-03-28] MEDS: guaiFENesin ER 600 MG TAB PO SCH ×2 (08:28→20:58)
[2019-03-28] MEDS: ALLOPURINOL 100 MG TAB PO SCH (08:28)
--- NOTE | 2019-03-28 11:55 | IPNPDOC ---
Text Note Date of Service The patient was seen on 03/28/19. NOTE S: patient states slept better last night with less cough. still with dry cough unable to produce sputum. This AM noticed swelling to bottom of lip. no itching. She is being seen for DM, COPD exacerb and now angioedema due to MANDEEP-I. She was not in active CHF on admission. She is on room air with good ox saturations above 92%. Does not use oxygen at home. O: Vitals as below General: pleasant, mild distress with dry cough, AAOx3 HEENT: low lip swelling, tongue midline, no tongue swelling; mild facial swelling; posterior pharynx patent Heart irreg/irreg rate controlled LCTA with decreased breathsound but no W/R/R Ext: no edema A/P: Angioedema due to MANDEEP-I - D/C lisinopril. currently on steroids. no respiratory compromise, add benadryl prn. 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, hyperglycemia and with diabetic ne uropathy Poorly controlled, increase levemir Item Value Date Time Bedside Glucose (Misc Panel) 279 MG/DL H 03/27/192022 Bedside Glucose (Misc Panel) 359 MG/DL H 03/27/19 1707 Bedside Glucose (Misc Panel) 298 MG/DL H 03/27/19 1214 Bedside Glucose (Misc Panel) 279 MG/DL H 03/26/192009 Paroxysmal atrial fibrillation - rate controlled - continue with alissa CKD, stage III Baseline creatinine 1.5; up to 1.9 today due to diuresis/high dose IV lasix on admission; Avoid nephrotoxic agents HTN - essential history of Grade 2 diastolic dysfunction, LVEF 60% Does NOT appear to be in CHF at this time; Stop IV lasix; Follows 1800cc fluid restriction Anxiety on chronic xanax - watch for respiratory depression with use Current Medications Albuterol/ Ipratropium (Duoneb (Ipr 0.5mg/Alb 2.5mg)) 3 ml Q2HP PRN NEB SOB/WHEEZING Last administered on 03/27/19at 12:30; Start 03/26/19 at 15:00 Albuterol/ Ipratropium (Duoneb (Ipr 0.5mg/Alb 2.5mg)) 3 ml RQ6H NEB Last administered on 03/28/19 01:53; Start 03/26/19 at 20:00 Allopurinol (Zyloprim) 100 mg DAILY PO Last administered on 03/28/19 08:28; Start 03/27/19 at 09:00 Alprazolam (Xanax) 0.25 mg DAILY PO Last administered on 03/28/19 08:25; Start 03/27/19 at 09:00 Apixaban (Eliquis) 2.5 mg BID PO Last administered on 03/28/19 08:26; Start 03/26/19 at 21:00 Aspirin (Ecotrin) 81 mg DAILY PO Last administered on 03/28/19 08:26; Start 03/27/19 at 09:00 Azithromycin 500 mg/IV Miscellaneous Supplies 1 each/ Dextrose 255 ml @ 255 mls/hr Q24H IV Last administered on 03/27/19 13:53; Start 03/27/19 at 13:00 Budesonide/ Formoterol Fumarate (Symbicort 160/ 4.5mcg) 2 puff BID INH Last administered on 03/28/19 07:51; Start 03/27/19 at 09:00 Ceftriaxone Sodium 2 gm/ Dextrose 50 ml @ 100 mls/hr Q24H IV Last administered on 03/27/19 18:33; Start 03/26/19 at 16:00 Cetylpyridinium Chloride (Cepacol) 1 elvira Q2HP PRN PO SORE THROAT; Start 03/27/19 at 11:30 Dextromethorphan (Delsym Af 12hr Susp) 60 mg QHS PRN PO COUGH Last administered on 03/27/19at 23:17; Start 03/27/19 at 18:15 Dextrose (Dextrose 50%) 25 ml ASDIRECTED PRN IV SEE LABEL COMMENTS; Start 03/26/19 at 15:00 Doxycycline Hyclate 100 mg/ Dextrose 100 ml @ 100 mls/hr Q12H IV Last administered on 03/27/19at 04:31; Start 03/26/19 at 17:00; Stop 03/27/19 at 12:05; Status DC Furosemide (LASIX injection) 80 mg Q6H IV Last administered on 6/22/19at 05:57; Start 03/26/19 at 18:00; Stop 03/27/19 at 12:02; Status DC Furosemide (Lasix) 40 mg BID@0900,1700 PO Last administered on 03/28/19 08:27; Start 03/27/19 at 17:00 Gabapentin (Neurontin) 100 mg BID PO ; Start 03/27/19 at 21:00; Stop 03/27/19 at 21:00; Status DC Glucagon (Glucagon) 1 mg ASDIRECTED PRN SC SEE LABEL COMMENTS; Start 03/26/19 at 15:00 Glucose (Glucose) 16 GM ASDIRECTED PRN PO SEE LABEL COMMENTS; Start 03/26/19 at 15:00 Guaifenesin (Mucinex Tab Er) 600 mg BID PO Last administered on 03/28/19at 08:28; Start 03/27/19 at 21:00 Guaifenesin (Robitussin) 10 ml Q6HP PRN PO COUGH Last administered on 03/27/19at 11:33; Start 03/26/19 at 21:00 Home Med (Med Rec Complete!) ASDIRECTED XX ; Start 03/26/19 at 13:15; Stop 03/26/19 at 13:15; Status DC Insulin Detemir (Levemir Insulin) 40 units DAILY SC Last administered on 03/28/19 08:24; Start 03/27/19 at 09:00 Insulin Human Lispro (HumaLOG INSULIN) SEE PROTOCOL TABLE AC SC Last administered on 03/28/19 08:25; Start 03/26/19 at 17:30 Insulin Human Lispro (HumaLOG INSULIN) SEE PROTOCOL TABLE QHS SC Last administered on 03/27/19at 20:43; Start 03/26/19 at 21:00 Isosorbide Mononitrate (Imdur) 30 mg DAILY PO Last administered on 03/28/19 08:27; Start 03/27/19 at 09:00 Ketoconazole (Nizoral) APPLY TO FEET BID TOP Last administered on 03/28/19 08:26; Start 03/26/19 at 21:00 Lisinopril (Prinivil) 20 mg DAILY PO Last administered on 03/28/19 08:27; Start 03/27/19 at 09:00 Methylprednisolone (SOLUmedrol) 60 mg Q12H IV Last administered on 03/28/19 05:27; Start 03/27/19 at 06:00 Nicotine (Nicoderm Cq 14mg) 1 patch DAILY TD Last administered on 03/28/19 08:25; Start 03/27/19 at 09:00 Non-Formulary Medication ( See Comment Field Below ) REMOVE NICOTINE PATCH QHS XX Last administered on 03/27/19 20:45; Start 03/27/19 at 21:00 Nystatin (Mycostatin Powder, Nystop) APPLY UNDER JENNIFER... BID PRN TOP REDNESS/IRRITATION Last administered on 03/28/19 08:26; Start 03/26/19 at 15:00 Pantoprazole Sodium (Protonix) 20 mg DAILY PO Last administered on 03/28/19 08:26; Start 03/27/19 at 09:00 Pregabalin (Lyrica) 75 mg BID PO Last administered on 03/28/19 08:26; Start 03/26/19 at 21:00 Rosuvastatin Calcium (Crestor) 20 mg QHS PO Last administered on 03/27/19at 20:44; Start 03/26/19 at 21:00 Sodium Chloride (Saline Lock Flush) 2 ml ASDIRECTED PRN IV SEE LABEL COMMENTS; Start 03/27/19 at 12:30 Sodium Chloride (Saline Lock Flush) 2 ml SLF IV Last administered on 03/28/19 05:27; Start 03/27/19 at 14:00 VS,Fishbone, I+O VS, Fishbone, I+O Laboratory Tests 03/28/19 04:46 Red Blood Count 4.05, Mean Corpuscular Volume 93.1, Mean Corpuscular Hemoglobin 30.6, Mean Corpuscular Hemoglobin Concent 32.9, Red Cell Distribution Width 15.0 H, Calcium Level 8.5 L Vital Signs Date Time Temp Pulse Resp B/P (MAP) Pulse Ox O2 Delivery O2 Flow Rate FiO2 03/28/19 08:27 122/60 03/28/19 08:00 99.1 62 16 95 03/27/19 12:38 Room Air 03/26/19 22:00 I&O- Last 24 Hours up to 6 AM 03/28/19 06:00 Intake Total 1305 ml Output Total 1845 ml Balance -540 ml DANIEL MCCARTHY DO Mar 28, 2019 11:55
[2019-03-28] MEDS: AZITHROMYCIN INJ 500 MG, VIAL MATE ADAPTER 1 EACH in D5W 250 ML IV SCH (13:10)
[2019-03-28] MEDS: diphenhydrAMINE 25 MG CAP PO SCH ×3 (13:10→23:15)
[2019-03-28] MEDS: cefTRIAXone SOD 2 GM in D5W MINI-BAG PLUS 50 ML IV SCH (17:59)
[2019-03-28] MEDS: ROSUVASTATIN 10 MG TAB (CRESTOR) PO SCH (20:58)
[2019-03-28] MEDS: guaiFENesin SYRUP 200 MG/10 ML UDC PO PRN (20:58)
[2019-03-28] MEDS: **NOTE PATIENT COMMENT** MISC XX SCH (20:59)
[2019-03-29] MEDS: IPRATROPIUM 0.5MG/ALBUTEROL 2.5MG INH SOL UD 3ML (DUONEB)(J7620) NEB SCH ×4 (02:10→20:14)
[2019-03-29 04:00] VITALS: BP 150/68
[2019-03-29] MEDS: SLF 3 ML SYR IV SCH ×3 (05:46→21:32)
[2019-03-29] MEDS: diphenhydrAMINE 25 MG CAP PO SCH ×2 (05:46→12:12)
[2019-03-29] MEDS: methylPREDNISolone INJ 125 MG/2 ML VIAL (J2930) IV SCH (05:46)
[2019-03-29 05:58] LABS: HEMATOCRIT 37.5 % (36.0-47.0); HEMOGLOBIN 12.2 g/dl (12.0-15.5); MEAN CORPUSCULAR HEMOGLOBIN 29.8 pg (27.0-33.0); MEAN CORPUSCULAR HGB CONC 32.5 g/dl (32.0-36.5); MEAN CORPUSCULAR VOLUME 91.5 fl (80.0-96.0); PLATELET COUNT, AUTOMATED 196 10^3/uL (150-450); WHITE BLOOD COUNT 11.7 10^3/uL (4.0-10.0)
[2019-03-29 06:27] LABS: CREATININE FOR GFR 1.7 MG/DL (0.55-1.30); GLOMERULAR FILTRATION RATE 30.9 (>39); POTASSIUM SERUM 4.7 MEQ/L (3.5-5.1)
[2019-03-29] MEDS: HumaLOG INSULIN (NovoLOG) PER UNIT SC SCH ×4 (07:43→21:31)
[2019-03-29 08:00] VITALS: BP 136/60
[2019-03-29] MEDS: ISOSORBIDE MON. (IMDUR) 30 MG XR TAB PO SCH (08:18)
[2019-03-29] MEDS: ASPIRIN 81 MG ENTERIC TAB PO SCH (08:18)
[2019-03-29] MEDS: APIXABAN 2.5 MG TAB (ELIQUIS) PO SCH ×2 (08:18→21:31)
[2019-03-29] MEDS: ALPRAZolam 0.25 MG TAB PO SCH (08:18)
[2019-03-29] MEDS: PANTOPRAZOLE 20 MG TAB PO SCH (08:18)
[2019-03-29] MEDS: guaiFENesin ER 600 MG TAB PO SCH ×2 (08:18→21:31)
[2019-03-29] MEDS: PREGABALIN 75 MG CAP(LYRICA) PO SCH ×2 (08:19→21:39)
[2019-03-29] MEDS: ALLOPURINOL 100 MG TAB PO SCH (08:19)
[2019-03-29] MEDS: **hydrALAZINE** 10 MG TAB PO SCH ×2 (08:19→21:32)
[2019-03-29] MEDS: NICOTINE 14 MG/24 HR TRANSDERMAL TD SCH (08:20)
[2019-03-29] MEDS: LEVEMIR (INSULIN DETEMIR) 1 UNITS/0.01ML SC SCH (08:20)
[2019-03-29] MEDS: KETOCONAZOLE 2% CREAM TOP SCH ×2 (08:20→21:32)
[2019-03-29] MEDS: SYMBICORT 160/4.5MCG INHALER 6GM INH SCH ×2 (09:00→23:55)
[2019-03-29 12:00] VITALS: BP 122/58
[2019-03-29] MEDS: AZITHROMYCIN INJ 500 MG, VIAL MATE ADAPTER 1 EACH in D5W 250 ML IV SCH (12:12)
[2019-03-29] MEDS ORDERED: ACYCLOVIR 5% OINT 15GM TOP PRN (13:15)
[2019-03-29] MEDS ORDERED: diphenhydrAMINE CREAM 30GM TOP PRN (13:15)
--- NOTE | 2019-03-29 13:24 | IPNPDOC ---
Text Note Date of Service The patient was seen on 03/29/19. NOTE S: patient states breathing improved. less dry cough. lip swelling improving.. States recent shingles attack to right palm of hand and arm, is requesting anti itch medication. states pain is intermittently burning and itching. O: Vitals as below General: pleasant, NAD AAOx3 HEENT: minimal lower lip swelling - improved HRRR no murmur LCTA with scant wheeze and scattered rhonchi. no rales Ext: no edema TELE reviewed and currently NSR A/P: Angioedema due to MANDEEP-I - D/C lisinopril - marked as allergy in chart. currently on steroids. no respiratory compromise. Suspect angioedema aggrevated COPD. She is NOT in CHF. 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, hyperglycemia and with diabetic neuropathy - worse with steroids Poorly controlled, increase levemir on 03/28 Item Value Date Time Bedside Glucose (Misc Panel) 283 MG/DL H 03/29/19 1146 Bedside Glucose (Misc Panel) 292 MG/DL H 03/28/19 2047 Bedside Glucose (Misc Panel) 336 MG/DL H 03/28/19 1740 Paroxysmal atrial fibrillation - rate controlled - continue with eliquis CKD, stage III Baseline creatinine 1.5; slowing improving after peak of 1.9 due to diuresis/ high dose IV lasix on admission; Avoid nephrotoxic agents HTN - essential history of Grade 2 diastolic dysfunction, LVEF 60% Does NOT appear to be in CHF at this time; Stop IV lasix; d/c fluid restriction Anxiety on chronic xanax - watch for respiratory depression with use Shingles - prior to admission - prn acyclovir cream and benadryl cream. If no improvement, consider capsicin cream. VS,Fishbone, I+O VS, Fishbone, I+O Laboratory Tests 03/29/19 05:39 Red Blood Count 4.10, Mean Corpuscular Volume 91.5, Mean Corpuscular Hemoglobin 29.8, Mean Corpuscular Hemoglobin Concent 32.5, Red Cell Distribution Width 15.0 H, Calcium Level 8.0 L Vital Signs Date Time Temp Pulse Resp B/P (MAP) Pulse Ox O2 Delivery O2 Flow Rate FiO2 03/29/19 12:00 97.4 64 18 122/58 (79) 94 03/27/19 12:38 Room Air 03/26/19 22:00 I&O- Last 24 Hours up to 6 AM 03/29/19 06:00 Intake Total 1265 ml Output Total 1500 ml Balance -235 ml DANIEL MCCARTHY DO Mar 29, 2019 13:24
[2019-03-29 16:00] VITALS: BP 132/64
[2019-03-29] MEDS: cefTRIAXone SOD 2 GM in D5W MINI-BAG PLUS 50 ML IV SCH (16:25)
[2019-03-29] MEDS: methylPREDNISolone INJ 40 MG/1 ML VIAL (J2920) IV SCH (17:55)
[2019-03-29 20:00] VITALS: BP 145/66
[2019-03-29] MEDS: ROSUVASTATIN 10 MG TAB (CRESTOR) PO SCH (21:31)
[2019-03-29] MEDS: **NOTE PATIENT COMMENT** MISC XX SCH (21:32)
[2019-03-29 23:59] VITALS: BP 141/63
[2019-03-30] MEDS: IPRATROPIUM 0.5MG/ALBUTEROL 2.5MG INH SOL UD 3ML (DUONEB)(J7620) NEB SCH ×2 (01:10→07:23)
[2019-03-30 04:00] VITALS: BP 172/70
[2019-03-30] MEDS: methylPREDNISolone INJ 40 MG/1 ML VIAL (J2920) IV SCH (05:52)
[2019-03-30] MEDS: SLF 3 ML SYR IV SCH (05:52)
[2019-03-30 05:59] LABS: HEMATOCRIT 37.6 % (36.0-47.0); HEMOGLOBIN 12.1 g/dl (12.0-15.5); MEAN CORPUSCULAR HEMOGLOBIN 29.7 pg (27.0-33.0); MEAN CORPUSCULAR HGB CONC 32.2 g/dl (32.0-36.5); MEAN CORPUSCULAR VOLUME 92.2 fl (80.0-96.0); PLATELET COUNT, AUTOMATED 192 10^3/uL (150-450); RED BLOOD COUNT 4.08 10^6/uL (4.00-5.40); WHITE BLOOD COUNT 11.2 10^3/uL (4.0-10.0)
[2019-03-30 06:28] LABS: CALCIUM LEVEL 8.1 MG/DL (8.8-10.2); CREATININE FOR GFR 1.7 MG/DL (0.55-1.30); GLOMERULAR FILTRATION RATE 30.9 (>39); POTASSIUM SERUM 3.9 MEQ/L (3.5-5.1)
[2019-03-30] MEDS: SYMBICORT 160/4.5MCG INHALER 6GM INH SCH (07:23)
[2019-03-30 08:00] VITALS: BP 156/67
[2019-03-30] MEDS: HumaLOG INSULIN (NovoLOG) PER UNIT SC SCH (08:06)
[2019-03-30] MEDS: LEVEMIR (INSULIN DETEMIR) 1 UNITS/0.01ML SC SCH (08:07)
[2019-03-30] MEDS: NICOTINE 14 MG/24 HR TRANSDERMAL TD SCH (08:07)
[2019-03-30] MEDS: ALPRAZolam 0.25 MG TAB PO SCH (08:08)
[2019-03-30] MEDS: ISOSORBIDE MON. (IMDUR) 30 MG XR TAB PO SCH (08:08)
[2019-03-30] MEDS: ALLOPURINOL 100 MG TAB PO SCH (08:08)
[2019-03-30 08:09] VITALS: BP 156/67
[2019-03-30] MEDS: ASPIRIN 81 MG ENTERIC TAB PO SCH (08:09)
[2019-03-30] MEDS: PREGABALIN 75 MG CAP(LYRICA) PO SCH (08:09)
[2019-03-30] MEDS: guaiFENesin ER 600 MG TAB PO SCH (08:09)
[2019-03-30] MEDS: APIXABAN 2.5 MG TAB (ELIQUIS) PO SCH (08:09)
[2019-03-30] MEDS: **hydrALAZINE** 10 MG TAB PO SCH (08:09)
[2019-03-30] MEDS: KETOCONAZOLE 2% CREAM TOP SCH (08:10)
[2019-03-30] MEDS: PANTOPRAZOLE 20 MG TAB PO SCH (08:10)
[2019-03-30] MEDS ORDERED: NICO14PA TD (09:03)
[2019-03-30] MEDS ORDERED: PRED10TA2 PO (09:05)
[2019-03-30] MEDS ORDERED: LEVA750T7 PO (09:05)
--- NOTE | 2019-03-30 09:09 | IPNPDOC ---
Date Seen The patient was seen on 03/30/19. Progress Note SUBJECTIVE: "I want to go home today. I did ok with the therapist and went up some stairs. My daughter is home, and I haven't seen her in 7 years." No c/o sob, chest pain, cough, fever or chills. N Objective: Vitals as below General: pleasant, NAD AAOx3. no use of accessory respiratory muscles HEENT: minimal lower lip swelling - improved. no stricor Heart: RRR no murmur abd: soft nt nd obese Lungs: scant wheeze and scattered rhonchi. no rales Ext: no edema TELE reviewed and currently NSR Laboratory data, imaging studies, microbiology: reviewed A/P: Angioedema due to MANDEEP-I - D/C lisinopril - marked as allergy in chart. currently on steroids. no respiratory compromise. Suspect angioedema aggrevated COPD. She is NOT in CHF. 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 passed HSE. VS, I&O, 24H, Fishbone Vital Signs/I&O Vital Signs Date Time Temp Pulse Resp B/P (MAP) Pulse Ox O2 Delivery O2 Flow Rate FiO2 03/30/19 04:00 97.2 62 18 172/70 (104) 94 03/27/19 12:38 Room Air 03/26/19 22:00 I&O- Last 24 Hours up to 6 AM 03/30/19 05:59 Intake Total 1350 ml Output Total 1100 ml Balance 250 ml Laboratory Data 24H LABS Laboratory Tests 2 03/29/19 11:46: Bedside Glucose (Misc Panel) 283H 03/29/19 16:28: Bedside Glucose (Misc Panel) 326H 03/29/19 21:19: Bedside Glucose (Misc Panel) 300H 03/30/19 05:34: Nucleated Red Blood Cells % (auto) 0.0, Anion Gap 8, Glomerular Filtration Rate 30.9L, Blood Urea Nitrogen 65H, Creatinine 1.70H, Sodium Level 133L, Potassium Level 3.9, Chloride Level 98, Carbon Dioxide Level 27, Calcium Level 8.1L CBC/BMP Laboratory Tests 03/30/19 05:34 Red Blood Count 4.08, Mean Corpuscular Volume 92.2, Mean Corpuscular Hemoglobin 29.7, Mean Corpuscular Hemoglobin Concent 32.2, Red Cell Distribution Width 15.0 H, Calcium Level 8.1 L Microbiology Microbiology 03/26/19 Blood Culture - Preliminary, Resulted No Growth after 72 hours. All specime... 03/26/19 Blood Culture - Preliminary, Resulted 03/26/19 Gram Stain - Final, Complete 03/26/19 Sputum Culture - Final, Complete Moraxella Catarrhalis Enterobacter Cloacae Complex YUMIKO JI MD Mar 30, 2019 07:24
--- NOTE | 2019-03-30 16:38 | DS.PDOC ---
Discharge Summary General Date of Admission Mar 26, 2019 at 13:46 Date of Discharge March 30, 2019 Discharge Summary DISCHARGE DIAGNOSES: Lisinopril-induced angioedema Copd exacerbation Sputum cx: moraxella, enterobacter Contaminated Blood culture-staph epidermidis active tobacco abuse-tobacco cessation counselling provided grade 2 Diastolic CHF, acute exacerbation Chronic hypoxic respiratory failure on home oxygen Atrial Fibrillation Type 2 DM Obesity BMI 43 Discharge medications: pls see below Followup Instructions: Ground glass opacities in [facility]-repeat CT chest to be ordered by Primary care physician and pulmonology followup within one month. History of Presenting Illness: 79-year-old patient of Nikko Briggsnan. She has been treated as an outpatient for what seems to be exacerbation of COPD with prednisone and nebulized bronchodilators. Sputum became green, thick and her shortness of breath and increased. Lower extremity edema increased and she developed dyspnea on exertion. She was brought to the emergency room. Oxygen saturations in the mid 80s so she is being admitted for inpatient treatment. Hospital Course: Exacerbation of COPD from presumed bronchitis. -Solu-Medrol 60 mgIV every 12 hours, tapered to po prednisone as oupt -supplemental oxygen to make oxygen saturation greater than 90% and empiric antibiotic therapy with Rocephin 2 grams IV daily and doxycycline 100 mg twice a day. -Sputum studies reviewed Contaminated blood cx -one of 2 sets blood cx, -clinically doing well -remained afebrile with slight steroid induced leukocytosis -per Dr. Walters, ID retention manager, no need for further workup Diastolic congestive heart failure with exacerbation. -She is on restricted salt diet of 1800 mL per day. Intravenous furosemide, 80 mg every 6 hours as needed. May need a diuresis of 1.2 liters per day. Stage III chronic kidney disease. Daily labs have been ordered. She follows with Dr. Toro, bit sharpener operator. Renal function is currently at baseline. Avoid syndrome of nonsteroidal anti-inflammatory drug (NSAID). Dose medication appropriately for renal function. Diabetes. She is on a sliding scale of insulin coverage per protocol. I have reduced her basal insulin to 40 units per day in the face of an enforced hospital based diet. Hypertensive heart disease. discontinued lisinopril due to angioedema Atrial fibrillation. Her rate is controlled. She is on no chronotropic agents and maintains a normal heart rate. Suggested some element of AV dysfunction. She is on telemetry. Continue her Eliquis. Tobacco abuse. Smoking cessation was discussed. nicotine patch given Coronary artery disease. Status post stent about 10 years ago. Continue her aspirin. Hyperlipidemia. Continue her rosuvastatin. DISCHARGE PHYSICAL EXAMINATION: VITAL SIGNS: Per flow sheet. General appearance: no conversational dyspnea aaox3 no use of accessory respiratory muscles HEENT: Pupils equal, reactive to light. TMs and oropharynx benign. NECK: No masses. LUNGS:diminished HEART: Irregular rate and rhythm. 1/6 systolic ejection murmur. ABDOMEN: Soft, obese. Nontender. No masses. EXTREMITIES: 1+ peripheral edema. Venous stasis dermatitis. Some decreased pulses in feet, probably from the edema. Moves arms and legs with equal strength. Chest x-ray shows increased interstitial markings consistent with fluid. Telemetry shows atrial fibrillation, controlled rate. ADMISSION LABS: White count 10.3, hemoglobin 13.7, platelets 183. Sodium 134, potassium 5.2, BUN 32, creatinine 1.5. Glucose 136. DISCHARGE LABS, IMAGING STUDIES, MICROBIOLOGY: PLS SEE BELOW time spent on discharge: 32 min Vital Signs/I&Os Vital Signs Date Time Temp Pulse Resp B/P (MAP) Pulse Ox O2 Delivery O2 Flow Rate FiO2 03/30/19 08:09 156/67 03/30/19 08:00 97.3 60 18 94 03/27/19 12:38 Room Air 03/26/19 22:00 I&O- Last 24 Hours up to 6 AM 03/30/19 06:00 Intake Total 1350 ml Output Total 1100 ml Balance 250 ml Laboratory Data Labs 24H Laboratory Tests 2 03/29/19 21:19: Bedside Glucose (Misc Panel) 300H 03/30/19 05:34: Nucleated Red Blood Cells % (auto) 0.0, Anion Gap 8, Glomerular Filtration Rate 30.9L, Blood Urea Nitrogen 65H, Creatinine 1.70H, Sodium Level 133L, Potassium Level 3.9, Chloride Level 98, Carbon Dioxide Level 27, Calcium Level 8.1L 03/30/19 09:56: Erythrocyte Sedimentation Rate 26, C-Reactive Protein, Quantitative < 0.30 CBC/BMP Laboratory Tests 03/30/19 05:34 Red Blood Count 4.08, Mean Corpuscular Volume 92.2, Mean Corpuscular Hemoglobin 29.7, Mean Corpuscular Hemoglobin Concent 32.2, Red Cell Distribution Width 15.0 H, Calcium Level 8.1 L FSBS Laboratory Tests Test 03/29/19 21:19 Range/Units Bedside Glucose (Misc Panel) 300 83-110 MG/DL Microbiology Microbiology 03/30/19 Blood Culture, Received Pending 03/30/19 Blood Culture, Received Pending 03/26/19 Blood Culture - Preliminary, Resulted No Growth after 72 hours. All specime... 03/26/19 Blood Culture - Final, Complete Staphylococcus Epidermidis 03/26/19 Gram Stain - Final, Complete 03/26/19 Sputum Culture - Final, Complete Moraxella Catarrhalis Enterobacter Cloacae Complex Discharge Medications Scheduled Allopurinol (Allopurinol) 100 Mg Tab, 100 MG PO DAILY, (Reported) Alprazolam (Alprazolam) 0.25 Mg Tablet, 0.25 MG PO DAILY, (Reported) Apixaban (Eliquis) 2.5 Mg Tablet, 2.5 MG PO BID, (Reported) Aspirin (Aspir 81) 81 Mg Tab, 81 MG PO DAILY, (Reported) Furosemide (Furosemide) 20 Mg Tab, 40 MG PO BID, (Reported) Insulin Aspart (Novolog Flexpen) 100 Unit/1 Ml Insuln.pen, 8 UNITS SC BID, (Reported) WITH LUNCH AND DINNER Insulin Degludec (Tresiba Flextouch U-100) 100 Unit/Ml Inj, 80 UNIT SC DAILY, (Reported) Isosorbide Mononitrate (Isosorbide Mononitrate ER) 30 Mg Tab, 30 MG PO DAILY, (Reported) Ketoconazole (Ketoconazole) 15 Gm Cream..g., 1 DOSE TOP BID, (Reported) APPLY TO FEET Levofloxacin (Levaquin) 750 Mg Tablet, 750 MG PO DAILY Lisinopril (Lisinopril) 20 Mg Tablet, 20 MG PO DAILY, (Reported) Nicotine (Nicotine Patch) 14 Mg Patch.td24, 1 PATCH TD DAILY Pantoprazole Sodium (Pantoprazole Sodium) 20 Mg Tab, 20 MG PO DAILY, (Reported) Prednisone (Prednisone) 10 Mg Tablet, 10 MG PO DAILY, (Reported) Prednisone (Prednisone) 10 Mg Tablet, 10 MG PO TAPER Take 4 tabs daily x 3 days, then 3 tabs daily x 3 days, then 2 tabs daily x 3 days, then 1 tab daily x 3 days and stop Pregabalin (Lyrica) 75 Mg Capsule, 75 MG PO BID, (Reported) Rosuvastatin Calcium (Crestor) 20 Mg Tab, 20 MG PO QHS, (Reported) Zolpidem Tartrate (Ambien) 10 Mg Tab, 10 M PO QHS, (Reported) Scheduled PRN Albuterol Sulfate (Albuterol Sulfate) 2.5 Mg/0.5 Ml Neb, 2.5 MG INH Q4H PRN for SHORTNESS OF BREATH, (Reported) Diclofenac Sodium (Diclofenac Sodium) 1% 100GM Gel..gram., 1 GM TOP QID PRN for PAIN, (Reported) APPLY TO FEET Hydrocodone/Acetaminophen (Muscoda 10-325 Tablet) 1 Tab Tab, 1 TAB PO Q6H PRN for PAIN, (Reported) Ipratropium/Albuterol Sulfate (Combivent Respimat 20-100 Mcg) 1 Aer Aer, 2 PUFF INH QID PRN for SHORTNESS OF BREATH, (Reported) Lidocaine (Lidocaine) 5% Adh..patch, 1 PATCH TOP DAILY PRN for PAIN, (Reported) APPLY TO LEFT SHOULDER Nitroglycerin (Nitroglycerin) 0.4 Mg Sub, 0.4 MG SL NITRO PRN for CHEST PAIN, (Reported) Nystatin (Nystatin Powder) 100,000 Unit/Gm Pow, 1 DOSE TOP BID PRN for REDNES S/IRRITATION, (Reported) UNDER BREASTS AND GROIN AREA Allergies Coded Allergies: gabapentin (Verified Allergy, Severe, TROUBLE BREATHING AND HEADACHE, 03/26/19) lisinopril (Verified Allergy, Severe, 03/28/19) angioedema lip latex (Verified Allergy, Intermediate, RASH/ITCHING, 03/26/19) codeine (Verified Adverse Reaction, Mild, HEADACHE, 03/26/19) oxycodone (Verified Adverse Reaction, Mild, CONFUSION, 03/26/19) YUMIKO JI MD Mar 30, 2019 16:29
== END 2019-03-30 11:42 | disposition left against medical advice (07) | DRG 190 ==
LOC: M ED 11:23 → M ED INP 13:46 → M PCU 14:31
PROVIDERS: ADMIT Family Medicine; ATTEND General Practice
DX: J44.1 Chronic obstructive pulmonary disease with (acute) exacerbation (principal); I50.33 Acute on chronic diastolic (congestive) heart failure; I13.0 Hypertensive heart and chronic kidney disease with heart failure and stage 1 through stage 4 chronic kidney disease, or unspecified chronic kidney disease; J96.11 Chronic respiratory failure with hypoxia; Z68.41 Body mass index [BMI] 40.0-44.9, adult; N18.3 Chronic kidney disease, stage 3 (moderate); T78.3XXA Angioneurotic edema, initial encounter; E66.9 Obesity, unspecified; E11.40 Type 2 diabetes mellitus with diabetic neuropathy, unspecified; F17.200 Nicotine dependence, unspecified, uncomplicated; I48.0 Paroxysmal atrial fibrillation; Z79.4 Long term (current) use of insulin; E11.65 Type 2 diabetes mellitus with hyperglycemia; K21.9 Gastro-esophageal reflux disease without esophagitis; I25.10 Atherosclerotic heart disease of native coronary artery without angina pectoris; Z95.2 Presence of prosthetic heart valve; Z88.5 Allergy status to narcotic agent; Z88.8 Allergy status to other drugs, medicaments and biological substances; E78.5 Hyperlipidemia, unspecified

== ENCOUNTER 2019-06-10 12:17 | Inpatient (IN) | payer MEDICARE ==
[~2019-06-10] VITALS: Ht 154.9 cm; Wt 105.0 kg
[~2019-06-10 12:17] MED LIST changes: +ALPRAZolam 0.25 MG TAB PO PRN; +DICL1GEL3 TOP; +ELIQ2.5T PO; +LEVA750T7 PO; +LIDO1PAD TOP; +NICO14PA TD; +PRED10TA2 PO
[2019-06-10] MEDS ORDERED: ALBUTEROL SULFATE 2.5 MG/0.5 ML INH NEB SOLN INH ONE (13:00)
[2019-06-10] MEDS ORDERED: IPRATROPIUM 0.5MG/ALBUTEROL 2.5MG INH SOL UD 3ML (DUONEB)(J7620) NEB ONE (13:00)
[2019-06-10 13:13] LABS: BASO % 0.4 % (0.0-1.0); EOS # 0.4 10^3/uL (0.0-0.5); EOS % 3.7 % (0.0-3.0); HEMATOCRIT 40.7 % (36.0-47.0); HEMOGLOBIN 12.9 g/dl (12.0-15.5); LYMPH % 20.6 % (24.0-44.0); MEAN CORPUSCULAR HGB CONC 31.7 g/dl (32.0-36.5); MEAN CORPUSCULAR VOLUME 88.3 fl (80.0-96.0); MONO # 1.3 10^3/uL (0.0-0.8); MONO % 13.5 % (0.0-5.0); NEUTROPHILS # 5.8 10^3/uL (1.5-8.5); NEUTROPHILS % 61.1 % (36.0-66.0); PLATELET COUNT, AUTOMATED 207 10^3/uL (150-450); RED BLOOD COUNT 4.61 10^6/uL (4.00-5.40); WHITE BLOOD COUNT 9.5 10^3/uL (4.0-10.0)
--- NOTE | 2019-06-10 13:17 | REP ---
Clinical: Chest pain. Comparison: 03/26/2019. Findings: The mediastinum and cardiac silhouette are stable and mild cardiomegaly is again suggested. Mild interstitial edema is similar to prior exam. No focal consolidation or effusion. No pneumothorax. Skeletal structures are intact. Impression: Stable interstitial edema. Electronically Signed by Rommel Hogan MD 06/10/2019 01:08 P
[2019-06-10] MEDS ORDERED: TORS20TA2 PO (13:41)
[2019-06-10] MEDS ORDERED: ROCA0.25 PO (13:41)
[2019-06-10] MEDS ORDERED: LISI-538 PO (13:49)
[2019-06-10 14:06] LABS: ALBUMIN 3.5 GM/DL (3.2-5.2); ALT/SGPT 14 U/L (12-78); BILIRUBIN,DIRECT < 0.1 MG/DL (0.0-0.2); BILIRUBIN,TOTAL 0.3 MG/DL (0.2-1.0); BLOOD UREA NITROGEN 37 MG/DL (7-18); C REACTIVE PROTEIN QUANTITATIV 0.45 MG/DL (0.00-0.30); CALCIUM LEVEL 8.8 MG/DL (8.8-10.2); CARBON DIOXIDE LEVEL 29 MEQ/L (21-32); CHLORIDE LEVEL 93 MEQ/L (98-107); CK-MB VALUE MASS 11.7 NG/ML (<3.6); CPK CREATINE PHOSPHOKINASE 352 U/L (26-192); GLOMERULAR FILTRATION RATE 38.7 (>39); GLUCOSE, FASTING 137 MG/DL (70-100); LIPASE 142 U/L (73-393); MB/CK RELATIVE INDEX 3.32 (< OR =4); NT-PRO BNP 445 PG/ML (<450); POTASSIUM SERUM 5.2 MEQ/L (3.5-5.1); SODIUM LEVEL 129 MEQ/L (136-145); TOTAL PROTEIN 6.6 GM/DL (6.4-8.2); TROPONIN I < 0.02 NG/ML (< 0.10)
[2019-06-10] MEDS ORDERED: dexameTHASONE 20 MG/5 ML VIAL (J1100) IV ONE (15:00)
[2019-06-10 16:00] LABS: CK-MB VALUE MASS 10.6 NG/ML (<3.6); CPK CREATINE PHOSPHOKINASE 323 U/L (26-192); MB/CK RELATIVE INDEX 3.28 (< OR =4); TROPONIN I < 0.02 NG/ML (< 0.10)
[2019-06-10 16:07] VITALS: O2SAT 75
[2019-06-10] MEDS ORDERED: FUROSEMIDE 40 MG/4 ML VIAL (J1940) IV ONE (16:15)
[2019-06-10] MEDS ORDERED: ANEXSIA, NORCO 7.5MG/325MG TABLET(HYDROCODONE/APAP) PO PRN (18:45)
[2019-06-10] MEDS ORDERED: ALBUTEROL SULFATE 2.5 MG/0.5 ML INH NEB SOLN INH PRN (18:45)
--- NOTE | 2019-06-10 19:58 | HPEPDOC ---
General Date of Admission Jun 10, 2019 at 18:42 Date of Service: Jun 10, 2019 Chief Complaint The patient is a 79-year-old female admitted with a reason for visit of Shortness Of Breath. History of Present Illness 79f hx cad, dchf, dm, htn, ckd, copd who presents with chest pain. Pt states it feels like her heart hurts. she describes it as sharp substernal pain radiating to her back. the pain seems to improve with exertion and worsen with rest. She also reports increased swelling and sob the past few days. She is noted to be hypoxic in the Ed. She has chronic orthopnea and dyspnea on exertion. a full ROS was performed and negative except as above Home Medications Scheduled Allopurinol (Allopurinol) 100 Mg Tab, 100 MG PO DAILY, (Reported) Apixaban (Eliquis) 2.5 Mg Tablet, 2.5 MG PO BID, (Reported) Aspirin (Aspir 81) 81 Mg Tab, 81 MG PO DAILY, (Reported) Calcitriol (Rocaltrol) 0.25 Mcg Capsule, 0.5 MCG PO DAILY, (Reported) Diclofenac Sodium (Diclofenac Sodium) 1% 100GM Gel..gram., 1 GM TOP BID, (Repor rey) APPLY TO FEET Insulin Aspart (Novolog Flexpen) 100 Unit/1 Ml Insuln.pen, 8 UNITS SC BID, (Reported) WITH LUNCH AND DINNER Insulin Degludec (Tresiba Flextouch U-100) 100 Unit/Ml Inj, 80 UNIT SC DAILY, (Reported) Isosorbide Mononitrate (Isosorbide Mononitrate ER) 30 Mg Tab, 30 MG PO DAILY, (R eported) Ketoconazole (Ketoconazole) 15 Gm Cream..g., 1 DOSE TOP BID, (Reported) APPLY TO FEET Lisinopril (Lisinopril) 20 Mg Tablet, 20 MG PO DAILY, (Reported) Pantoprazole Sodium (Pantoprazole Sodium) 20 Mg Tab, 20 MG PO DAILY, (Reported) Pregabalin (Lyrica) 75 Mg Capsule, 75 MG PO BID, (Reported) Rosuvastatin Calcium (Crestor) 20 Mg Tab, 20 MG PO QHS, (Reported) Torsemide (Torsemide) 20 Mg Tablet, 20 MG PO BID, (Reported) Zolpidem Tartrate (Ambien) 10 Mg Tab, 10 M PO QHS, (Reported) Scheduled PRN Albuterol Sulfate (Albuterol Sulfate) 2.5 Mg/0.5 Ml Neb, 2.5 MG INH Q4H PRN for SHORTNESS OF BREATH, (Reported) Alprazolam (Alprazolam) 0.25 Mg Tablet, 0.25 MG PO DAILY PRN for ANXIETY, (Repor rey) Hydrocodone/Acetaminophen ([place] 10-325 Tablet) 1 Tab Tab, 1 TAB PO Q6H PRN for PAIN, (Reported) Nitroglycerin (Nitroglycerin) 0.4 Mg Sub, 0.4 MG SL NITRO PRN for CHEST PAIN, (Reported) Nystatin (Nystatin Powder) 100,000 Unit/Gm Pow, 1 DOSE TOP BID PRN for REDNESS/IRRITATION, (Reported) UNDER BREASTS AND GROIN AREA Allergies Coded Allergies: gabapentin (Verified Allergy, Severe, TROUBLE BREATHING AND HEADACHE, 03/26/19) lisinopril (Verified Allergy, Severe, 03/28/19) angioedema lip latex (Verified Allergy, Intermediate, RASH/ITCHING, 03/26/19) codeine (Verified Adverse Reaction, Mild, HEADACHE, 03/26/19) oxycodone (Verified Adverse Reaction, Mild, CONFUSION, 03/26/19) Family History Significant Family History: Cancer Social History * Smoker: former Smoker Alcohol: Denies Drugs: denies A-FIB/CHADSVASC A-FIB History Current/History of A-Fib/PAF?: No Current PO Anticoag Therapy: Yes Physical Examination General Exam: Positive: Alert, Cooperative, Mild Distress Eye Exam: Positive: PERRLA, Conjunctiva & lids normal, EOMI; Negative: Sclera icteric ENT Exam: Positive: Atraumatic, Mucous membr. moist/pink, Pharynx Normal Neck Exam: Positive: Supple; Negative: JVD, thyromegaly Chest Exam: Positive: Diminished Heart Exam: Positive: Rate Normal, Regular Rhythm, Normal S1, Normal S2; Negative: Murmurs, Rubs Abdomen Exam: Positive: Normal bowel sounds, Soft; Negative: Tenderness, Hepatospenomegaly Extremity Exam: Positive: Edema, Normal pulses; Negative: Clubbing, Cyanosis Skin Exam: Positive: Nl turgor and temperature; Negative: Breakdown, Lesion Neuro Exam: Positive: Normal Gait, Normal Speech, Cranial Nerves 3-12 NL, Reflexes 2+ Psych Exam: Positive: Mental status NL, Mood NL, Oriented x 3 Vital Signs Vital Signs Date Time Temp Pulse Resp B/P (MAP) Pulse Ox O2 Delivery O2 Flow Rate FiO2 06/10/19 19:02 86 90 06/10/19 18:49 98.6 19 110/69 (83) Nasal Cannula 4.0 Laboratory Data Labs 24H Laboratory Tests 2 06/10/19 12:51: Immature Granulocyte % (Auto) 0.7, White Blood Count 9.5, Red Blood Count 4.61, Hemoglobin 12.9, Hematocrit 40.7, Mean Corpuscular Volume 88.3, Mean Corpuscular Hemoglobin 28.0, Mean Corpuscular Hemoglobin Concent 31.7L, Red Cell D istribution Width 16.1H, Platelet Count 207, Neutrophils (%) (Auto) 61.1, Lymphocytes (%) (Auto) 20.6L, Monocytes (%) (Auto) 13.5H, Eosinophils (%) (Auto) 3.7H, Basophils (%) (Auto) 0.4, Neutrophils # (Auto) 5.8, Lymphocytes # (Auto) 2.0, Monocytes # (Auto) 1.3H, Eosinophils # (Auto) 0.4, Basophils # (Auto) 0.0, Nucleated Red Blood Cells % (auto) 0.0, Anion Gap 7L, Glomerular Filtration Rate 38.7L, Calcium Level 8.8, Aspartate Amino Transf (AST/SGOT) 16, Alanine Aminotransferase (ALT/SGPT) 14, Alkaline Phosphatase 100, Total Bilirubin 0.3, Direct Bilirubin < 0.1, Total Creatine Kinase 352H, Creatine Kinase MB 11.7H, Creatine Kinase MB Relative Index 3.32, Troponin I < 0.02, C-Reactive Protein, Quantitative 0.45H, FF-Tud-N-Type Natriuretic Peptide 445, Total Protein 6.6, Albumin 3.5, Albumin/Globulin Ratio 1.13, Lipase 142 06/10/19 13:15: POC pH (Misc Panel) 7.355, POC Base Excess (Misc Panel) 8.0H, POC Saturated Percent O2 (Misc) 98, POC pO2 (Misc Panel) 107.0H, POC pCO2 (Misc Panel) 60.2*H, POC HCO3 (Misc Panel) 33.6H, POC Total CO2 (Misc Panel) 35.0H 06/10/19 15:20: Total Creatine Kinase 323H, Creatine Kinase MB 10.6H, Creatine Kinase MB Re lative Index 3.28, Troponin I < 0.02 CBC/BMP Laboratory Tests 06/10/19 12:51 Red Blood Count 4.61, Mean Corpuscular Volume 88.3, Mean Corpuscular Hemoglobin 28.0, Mean Corpuscular Hemoglobin Concent 31.7 L, Red Cell Distribution Width 16.1 H, Neutrophils (%) (Auto) 61.1, Lymphocytes (%) (Auto) 20.6 L, Monocytes (%) (Auto) 13.5 H, Eosinophils (%) (Auto) 3.7 H, Basophils (%) (Auto) 0.4, Neutrophils # (Auto) 5.8, Lymphocytes # (Auto) 2.0, Monocytes # (Auto) 1.3 H, Eosinophils # (Auto) 0.4, Basophils # (Auto) 0.0 Assessment/Plan 79f p/w worsening dyspnea and chest pain chest pain does not appear to be cardiac in origin will repeat cardiac enzymes tonight low suspicion for pe especially with pt already on eliquis continue imdur telemetry sob/hypoxia component of chf and copd diuresis nebs supplemental oxygen steroids dm diabetic diet monitor finger sticks sliding scale coverage continue basal and prandial insulin ckd stable avoid nephrotoxins Plan / VTE VTE Prophylaxis Ordered?: Yes TAYLOR PATTERSON MD Jun 10, 2019 19:57
[2019-06-10] MEDS ORDERED: GLUCOSE 4 GM CHEW TABLET PO PRN (20:00)
[2019-06-10] MEDS ORDERED: GLUCAGON FOR INJ 1 MG VIAL (J1610) SC PRN (20:00)
[2019-06-10] MEDS ORDERED: DEXTROSE 50% 50 ML SYRINGE IV PRN (20:00)
[2019-06-10 20:55] VITALS: BP 155/70
[2019-06-10] MEDS ORDERED: methylPREDNISolone INJ 40 MG/1 ML VIAL (J2920) IV SCH (21:00)
[2019-06-10 22:17] LABS: CK-MB VALUE MASS 8.8 NG/ML (<3.6); CPK CREATINE PHOSPHOKINASE 306 U/L (26-192); MB/CK RELATIVE INDEX 2.88 (< OR =4); TROPONIN I < 0.02 NG/ML (< 0.10)
[2019-06-10] MEDS: TORSEMIDE 20 MG TAB PO SCH (22:18)
[2019-06-10] MEDS: PREGABALIN 75 MG CAP(LYRICA) PO SCH (22:18)
[2019-06-10] MEDS: APIXABAN 2.5 MG TAB (ELIQUIS) PO SCH (22:18)
[2019-06-10] MEDS: ROSUVASTATIN 10 MG TAB (CRESTOR) PO SCH (22:18)
[2019-06-11 06:00] VITALS: BP 149/69
[2019-06-11 06:12] LABS: BASO % 0.1 % (0.0-1.0); HEMATOCRIT 39.3 % (36.0-47.0); HEMOGLOBIN 12.6 g/dl (12.0-15.5); LYMPH # 0.9 10^3/uL (1.5-5.0); LYMPH % 12.7 % (24.0-44.0); MEAN CORPUSCULAR HEMOGLOBIN 28.5 pg (27.0-33.0); MEAN CORPUSCULAR HGB CONC 32.1 g/dl (32.0-36.5); MEAN CORPUSCULAR VOLUME 88.9 fl (80.0-96.0); MONO # 0.3 10^3/uL (0.0-0.8); MONO % 3.4 % (0.0-5.0); NEUTROPHILS # 5.8 10^3/uL (1.5-8.5); NEUTROPHILS % 80.6 % (36.0-66.0); PLATELET COUNT, AUTOMATED 190 10^3/uL (150-450); RED BLOOD COUNT 4.42 10^6/uL (4.00-5.40); WHITE BLOOD COUNT 7.3 10^3/uL (4.0-10.0)
[2019-06-11 06:28] LABS: CALCIUM LEVEL 9.1 MG/DL (8.8-10.2); CREATININE FOR GFR 1.4 MG/DL (0.55-1.30); GLOMERULAR FILTRATION RATE 38.7 (>39); POTASSIUM SERUM 4.9 MEQ/L (3.5-5.1)
--- NOTE | 2019-06-11 07:07 | ECGEPIP ---
[facility] - ED Test Date: 2019-06-10 Pat Name: BRIGID JAEGER Department: Room: - Gender: Female Medical Assistant Float: TIMOTHY : 1940 Requested By: Myles Lcuero Order Number: [id number] Reading MD: Myles Mace Measurements Intervals [place] Rate: 61 P: -30 MD: 195 QRS: 42 QRSD: 76 T: 111 QT: 407 QTc: 413 Interpretive Statements SINUS RHYTHM WITH BORDERLINE FIRST DEGEREE AV BLOCK NONSPECIFIC T WAVE ABNORMALITIES SIMILAR TO 03/26/19 Electronically Signed on 06-11-2019 7:06:44 EDT by Myles Mace
--- NOTE | 2019-06-11 07:09 | ECGEPIP ---
[facility] - ED Test Date: 2019-06-10 Pat Name: BRIGID JAEGER Department: Room: - Gender: Female Gis Instructor: emerson : 1940 Requested By: JOHANNY Hector Order Number: [id number] Reading MD: Myles Mace Measurements Intervals [place] Rate: 58 P: 26 IL: 212 QRS: 40 QRSD: 77 T: 111 QT: 421 QTc: 415 Interpretive Statements SINUS BRADYCARDIA WITH FIRST DEGREE AV BLOCK NONSPECIFIC T-WAVE ABNORMALITY SIMILAR TO PRIOR ON SAME DATE Electronically Signed on 06-11-2019 7:08:50 EDT by Myles Mace
[2019-06-11] MEDS: HumaLOG INSULIN (NovoLOG) PER UNIT SC SCH ×6 (08:54→18:04)
[2019-06-11] MEDS: ALLOPURINOL 100 MG TAB PO SCH (08:55)
[2019-06-11] MEDS: APIXABAN 2.5 MG TAB (ELIQUIS) PO SCH ×2 (08:55→20:44)
[2019-06-11] MEDS: PANTOPRAZOLE 20 MG TAB PO SCH (08:56)
[2019-06-11] MEDS: ASPIRIN 81 MG ENTERIC TAB PO SCH (08:56)
[2019-06-11] MEDS: CALCITRIOL 0.25 MCG CAP (S0169) PO SCH (08:56)
[2019-06-11] MEDS: PREGABALIN 75 MG CAP(LYRICA) PO SCH ×2 (08:56→20:44)
[2019-06-11] MEDS: TORSEMIDE 20 MG TAB PO SCH ×2 (08:56→20:43)
[2019-06-11] MEDS: ISOSORBIDE MON. (IMDUR) 30 MG XR TAB PO SCH (08:56)
[2019-06-11] MEDS: predniSONE 20 MG TAB PO SCH (08:57)
[2019-06-11] MEDS: LEVEMIR (INSULIN DETEMIR) 1 UNITS/0.01ML SC SCH (08:57)
[2019-06-11] MEDS: FUROSEMIDE 40 MG/4 ML VIAL (J1940) IV SCH ×3 (13:10→23:08)
[2019-06-11 14:00] VITALS: BP 135/62
--- NOTE | 2019-06-11 15:11 | IPNPDOC ---
Subjective Date Seen The patient was seen on 06/11/19. Subjective Chief Complaint/HPI Pt is examined on the chair and at bedside. She reported no change in chest pain and dyspnea that started 06/10/19. She reported coughing and phlegm production are at baseline. She stated having some warm and cold. Pt reported she walks at home without assist and usually sleeps on a chair. General: Reports: Chills Constitutional: Reports: Chills, Fever Pulmonary: Reports: Dyspnea, Cough Cardiovascular: Reports: Chest Pain, Orthopnea, Edema Gastrointestinal: Denies: Nausea, Vomiting Objective Physical Examination General Exam: Positive: Alert, Cooperative, Mild Distress Eye Exam: Positive: Conjunctiva & lids normal; Negative: Sclera icteric ENT Exam: Positive: Atraumatic, Mucous membr. moist/pink Neck Exam: Negative: JVD, thyromegaly Chest Exam: Positive: Normal air movement, Rales (on right) Heart Exam: Positive: Rate Normal, Regular Rhythm, Normal S1, Normal S2; Negative: Murmurs, Rubs Abdomen Exam: Positive: Normal bowel sounds, Soft; Negative: Tenderness, Hepatospenomegaly Extremity Exam: Positive: Edema (pitting edema noted b/l LE), Normal pulses; Negative: Clubbing, Cyanosis Neuro Exam: Positive: Normal Speech Psych Exam: Positive: Mental status NL, Mood NL, Memory Intact, Oriented x 3 Assessment /Plan Assessment 1. Uncompensated diastolic heart dysfunction -Pt appears to be volume overload; b/l LE pitting edema as well as auscultated rales. Dyspnea -Chest pain with neg tropX3. -Cont PO torsemide 20mg BID PO. Start IV lasix 40mg Q6H -96.8kg in March 2019, now 106kg, likely d/t fluid retention -1800mlFR and 2g Na diet -Echo 10/2018 diastolic dysfunction grade 2; repeat echo pending 2. Dyspnea -Upon admission, pt is determined that dyspnea may have components of both CHF and COPD -IV Lasix. Cont nebulizer and oxygen PRN -Pt on prednisone 40mh daily; will down-titrating steroid 3. Diabetes Mellitus, chronic, insulin dependent -Detemir. POC glucose and SS AC HS 4. HTN -Cont home med To[place]mide. Pt will also be on Lasix for uncompensated diastolic dysfxn -Cont home med Crestor 5. CKD -GFR and creatinine at baseline -Cont to f/u with BMP 6. Chronic hypoxic respiratory failure on home oxygen -Pt reported she is not compliant as it's not comfortable -ox therapy PRN to titrate ox sat>92% 7. Atrial Fibrillation -Pt RRR at time of examination. EKG upon admission shows sinus bradycardia with 1st degree AB block -denies palpitation -Cont home med Eliquis 8. Obesity, BMI 44.2 -BMI 43 in March, fluid retention may contribute to rapid elevation of BMI compared to prior 9. Hyponatremia d/t volume overload -Pt on IV lasix and Toresmide -F/u with BMP tmrw Disposition: uncompensated diastolic dysfunction, repeat echo. IV lasix. Down- titrating steroid I saw and evaluated the patient. I agree with the findings and plan of care as documented in the above note Plan/VTE VTE Prophylaxis Ordered?: Yes VS, I&O, 24H, Fishbone Vital Signs/I&O Vital Signs Date Time Temp Pulse Resp B/P (MAP) Pulse Ox O2 Delivery O2 Flow Rate FiO2 06/11/19 08:56 149/69 06/11/19 06:00 97.2 73 20 90 2.0 06/10/19 18:49 Nasal Cannula I&O- Last 24 Hours up to 6 AM 06/11/19 06:00 Intake Total 145 ml Output Total 1200 ml Balance -1055 ml Laboratory Data 24H LABS Laboratory Tests 2 06/10/19 15:20: Total Creatine Kinase 323H, Creatine Kinase MB 10.6H, Creatine Kinase MB Relative Index 3.28, Troponin I < 0.02 06/10/19 21:47: Total Creatine Kinase 306H, Creatine Kinase MB 8.8H, Creatine Kinase MB Relative Index 2.88, Troponin I < 0.02 06/11/19 05:45: Immature Granulocyte % (Auto) 3.2H, White Blood Count 7.3, Red Blood Count 4.42, Hemoglobin 12.6, Hematocrit 39.3, Mean Corpuscular Volume 88.9, Mean Corpuscular Hemoglobin 28.5, Mean Corpuscular Hemoglobin Concent 32.1, Red Cell Distribution Width 15.9H, Platelet Count 190, Neutrophils (%) (Auto) 80.6H, Lymphocytes (%) (Auto) 12.7L, Monocytes (%) (Auto) 3.4, Eosinophils (%) (Auto) 0.0, Basophils (%) (Auto) 0.1, Neutrophils # (Auto) 5.8, Lymphocytes # (Auto) 0.9L, Monocytes # (Auto) 0.3, Eosinophils # (Auto) 0.0, Basophils # (Auto) 0.0, Nucleated Red Blood Cells % (auto) 0.0, Anion Gap 5L, Glomerular Filtration Rate 38.7L, Blood Urea Nitrogen 41H, Creatinine 1.40H, Sodium Level 130L, Potassium Level 4.9, Chloride Level 93L, Carbon Dioxide Level 32, Calcium Level 9.1 06/11/19 06:53: Bedside Glucose (Misc Panel) 267H CBC/BMP Laboratory Tests 06/11/19 05:45 Red Blood Count 4.42, Mean Corpuscular Volume 88.9, Mean Corpuscular Hemoglobin 28.5, Mean Corpuscular Hemoglobin Concent 32.1, Red Cell Distribution Width 15.9 H, Neutrophils (%) (Auto) 80.6 H, Lymphocytes (%) (Auto) 12.7 L, Monocytes (%) (Auto) 3.4, Eosinophils (%) (Auto) 0.0, Basophils (%) (Auto) 0.1, Neutrophils # (Auto) 5.8, Lymphocytes # (Auto) 0.9 L, Monocytes # (Auto) 0.3, Eosinophils # (Auto) 0.0, Basophils # (Auto) 0.0, Calcium Level 9.1 JEFFREY LYNN DO Jun 11, 2019 15:11 DENITA SORTO MD Jun 12, 2019 10:46
[2019-06-11] MEDS: ROSUVASTATIN 10 MG TAB (CRESTOR) PO SCH (20:43)
[2019-06-11 22:00] VITALS: BP 152/60
[2019-06-11] MEDS: RAMELTEON 8 MG TAB (ROZEREM) PO SCH (23:08)
[2019-06-12] VITALS: BP 152/60
[2019-06-12] MEDS: FUROSEMIDE 40 MG/4 ML VIAL (J1940) IV SCH ×4 (05:26→23:43)
[2019-06-12 06:00] VITALS: BP 150/62
--- NOTE | 2019-06-12 08:28 | ECHO ---
DATE OF PROCEDURE: 06/11/2019 AGE: 79 LOCATION: Room 4231 REFERRING PROVIDER: Dr. Brigitte Tyler REASON FOR THE ECHOCARDIOGRAM: Pedal edema. 2D MEASUREMENTS: IVS: 1.3 cm LV: 5.0 cm LVPW: 1.2 cm LA: 3.9 cm Aorta: 2.6 cm IVC: 2.6 cm DOPPLER MEASUREMENTS: Peak velocity across the aortic valve: 1.9 m/s Peak velocity across the LVOT: 1.3 m/s Mitral E: 0.92, Mitral A: 1.1 with a ratio of 0.8 2D COMMENTS: 1. Normal left ventricular size with mildly increased left ventricular wall thickness. Global left ventricular systolic function is normal. The estimated left ventricular systolic ejection fraction is 60 to 65%. 2. Normal left atrium. Normal right atrium and right ventricle in limited views. 3. The atrial septum appeared to be normal without evidence of defect or shunt. 4. Normal aortic root. 5. Small pericardial effusion was noted. No evidence of cardiac tamponade. 6. Aortic valve, mitral valve, and tricuspid valve appeared to be normal. DOPPLER: It detects no significant valvular abnormalities. Abnormal relaxation pattern was noted across the mitral valve leaflets, as well as the mitral valve annulus consistent with features of grade 1 left ventricular diastolic dysfunction. IMPRESSION: 1. Normal global left ventricular systolic function. There were features of left ventricular diastolic dysfunction manifested by abnormal relaxation. 2. A small pericardial effusion was noted. No evidence of cardiac tamponade. 3. Trivial aortic stenosis was noted, but no aortic regurgitation. 4. There are features of elevated central venous pressure. The inferior vena cava was mildly enlarged. The study was technically limited due to poor acoustic window. [facility]
[2019-06-12 08:43] LABS: HEMOGLOBIN 12.4 g/dl (12.0-15.5); MEAN CORPUSCULAR HEMOGLOBIN 27.4 pg (27.0-33.0); MEAN CORPUSCULAR VOLUME 88.3 fl (80.0-96.0); PLATELET COUNT, AUTOMATED 222 10^3/uL (150-450); RED BLOOD COUNT 4.53 10^6/uL (4.00-5.40); WHITE BLOOD COUNT 11.3 10^3/uL (4.0-10.0)
[2019-06-12] MEDS: guaiFENesin ER 600 MG TAB PO SCH ×2 (09:00→21:01)
[2019-06-12 09:13] LABS: CALCIUM LEVEL 9.5 MG/DL (8.8-10.2); CREATININE FOR GFR 1.57 MG/DL (0.55-1.30); GLOMERULAR FILTRATION RATE 33.9 (>39); POTASSIUM SERUM 4.2 MEQ/L (3.5-5.1)
[2019-06-12] MEDS: HumaLOG INSULIN (NovoLOG) PER UNIT SC SCH ×6 (09:50→17:34)
[2019-06-12] MEDS: ASPIRIN 81 MG ENTERIC TAB PO SCH (09:51)
[2019-06-12] MEDS: predniSONE 20 MG TAB PO SCH (09:51)
[2019-06-12] MEDS: ISOSORBIDE MON. (IMDUR) 30 MG XR TAB PO SCH (09:51)
[2019-06-12] MEDS: APIXABAN 2.5 MG TAB (ELIQUIS) PO SCH ×2 (09:51→21:01)
[2019-06-12] MEDS: ALLOPURINOL 100 MG TAB PO SCH (09:51)
[2019-06-12] MEDS: PREGABALIN 75 MG CAP(LYRICA) PO SCH ×2 (09:51→21:01)
[2019-06-12] MEDS: CALCITRIOL 0.25 MCG CAP (S0169) PO SCH (09:52)
[2019-06-12] MEDS: PANTOPRAZOLE 20 MG TAB PO SCH (09:54)
[2019-06-12] MEDS: LEVEMIR (INSULIN DETEMIR) 1 UNITS/0.01ML SC SCH (09:59)
--- NOTE | 2019-06-12 11:21 | IPNPDOC ---
Subjective Date Seen The patient was seen on 06/12/19. Subjective Chief Complaint/HPI Pt is examined on the chair. She states that her dyspnea has improved. Reported there is some productive cough, but feels there's some phlegm down there that she cannot get out. Reported leg edema had improved. Denies any fever, chills, nausea, vomiting, abd pain, or urinary retention General: Denies: Chills Constitutional: Denies: Chills, Fever Pulmonary: Reports: Dyspnea, Cough Cardiovascular: Denies: Chest Pain Gastrointestinal: Denies: Nausea, Vomiting, Abdominal Pain Genitourinary: Denies: Retention Objective Physical Examination General Exam: Positive: Alert, Cooperative, No Acute Distress Eye Exam: Positive: Conjunctiva & lids normal; Negative: Sclera icteric ENT Exam: Positive: Atraumatic, Mucous membr. moist/pink Neck Exam: Negative: JVD, thyromegaly Chest Exam: Positive: Normal air movement, Rales (bilateral, mild to mod) Heart Exam: Positive: Rate Normal, Regular Rhythm, Normal S1, Normal S2; Negative: Murmurs, Rubs Abdomen Exam: Positive: Normal bowel sounds, Soft; Negative: Tenderness, Hepatospenomegaly Extremity Exam: Positive: Edema (pitting edema noted b/l LE), Normal pulses; Negative: Clubbing, Cyanosis Neuro Exam: Positive: Normal Speech Psych Exam: Positive: Mental status NL, Mood NL, Memory Intact, Oriented x 3 Assessment /Plan Assessment 1. Uncompensated diastolic heart dysfunction -B/l LE pitting edema as well as auscultated rales. Dyspnea improving -Chest pain with neg tropX3. -Cont IV lasix 40mg Q6H. D/C PO torsemide 20mg BID PO. -96.8kg in March 2019 around 106kg upon admission, likely d/t fluid retention -1800mlFR and 2g Na diet -Echo 10/2018 diastolic dysfunction grade 2 -Repeat echo Features of LV diastolic dysfunction. Small pericardial effusion. Trivial aortic stenosis. Features of elevated CVP with mildly enlarged IVC 2. Dyspnea -Upon admission, pt is determined that dyspnea may have components of both CHF and COPD -Cont IV Lasix. Cont nebulizer and oxygen PRN -Titrate prednisone 40mg QD down to 20mg QD. Plan to cont down-titrating steroid 3. Diabetes Mellitus, chronic, insulin dependent -Detemir 60 units SC. POC glucose and SS AC HS 4. HTN -Pt will also be on Lasix for uncompensated diastolic dysfxn -Hold home med [place]mide now. Cont home med Crestor 5. CKD, stage 3b -GFR at baseline. Creatinine 1.4->1.57 -Cont to f/u with BMP 6. Chronic hypoxic respiratory failure on home oxygen -Pt reported she is not compliant as it's not comfortable -ox therapy PRN to titrate ox sat>92% 7. Atrial Fibrillation -Pt RRR at time of examination. EKG upon admission shows sinus bradycardia with 1st degree AV block -denies palpitation -Cont home med Eliquis 8. Obesity, BMI 44.2 -BMI 43 in March, fluid retention may contribute to rapid elevation of BMI compared to prior 9. Hyponatremia d/t volume overload -Pt on IV lasix. dc torsemide -F/u with BMP tmrw Disposition: uncompensated diastolic dysfunction improving. IV lasix. Down- titrating steroid I saw and evaluated the patient. I agree with the findings and plan of care as documented in the above note Plan/VTE VTE Prophylaxis Ordered?: Yes VS, I&O, 24H[facility] Vital Signs/I&O Vital Signs Date Time Temp Pulse Resp B/P (MAP) Pulse Ox O2 Delivery O2 Flow Rate FiO2 06/12/19 09:51 150/62 06/12/19 06:00 98.1 56 18 92 06/11/19 14:00 2.0 06/10/19 18:49 Nasal Cannula I&O- Last 24 Hours up to 6 AM 06/12/19 06:00 Intake Total 1190 ml Output Total 2150 ml Balance -960 ml Laboratory Data 24H LABS Laboratory Tests 2 06/11/19 11:54: Bedside Glucose (Misc Panel) 184H 06/11/19 21:53: Bedside Glucose (Misc Panel) 293H 06/12/19 08:26: Nucleated Red Blood Cells % (auto) 0.0, Anion Gap 8, Glomerular Filtration Rate 33.9L, Blood Urea Nitrogen 54H, Creatinine 1.57H, Sodium Level 133L, Potassium Level 4.2, Chloride Level 93L, Carbon Dioxide Level 32, Calcium Level 9.5 CBC/BMP Laboratory Tests 06/12/19 08:26 Red Blood Count 4.53, Mean Corpuscular Volume 88.3, Mean Corpuscular Hemoglobin 27.4, Mean Corpuscular Hemoglobin Concent 31.0 L, Red Cell Distribution Width 16.1 H, Calcium Level 9.5 JEFFREY LYNN DO Jun 12, 2019 11:21 DENITA SORTO MD Jun 14, 2019 06:58
[2019-06-12] MEDS: IPRATROPIUM 0.5MG/ALBUTEROL 2.5MG INH SOL UD 3ML (DUONEB)(J7620) NEB PRN ×2 (13:08→19:40)
[2019-06-12] MEDS: ACETYLCYSTEINE 20% 4 ML VIAL (200MG/ML) INH SCH ×3 (13:10→19:43)
[2019-06-12 14:00] VITALS: BP 114/56
[2019-06-12] MEDS ORDERED: HumaLOG INSULIN (NovoLOG) PER UNIT SC SCH (21:00)
[2019-06-12] MEDS: ROSUVASTATIN 10 MG TAB (CRESTOR) PO SCH (21:01)
[2019-06-12 22:00] VITALS: BP 126/61
[2019-06-12] MEDS: RAMELTEON 8 MG TAB (ROZEREM) PO SCH (22:29)
[2019-06-13] MEDS: FUROSEMIDE 40 MG/4 ML VIAL (J1940) IV SCH (05:50)
[2019-06-13 06:00] VITALS: BP 139/56
[2019-06-13 06:20] LABS: HEMATOCRIT 37.3 % (36.0-47.0); HEMOGLOBIN 11.7 g/dl (12.0-15.5); MEAN CORPUSCULAR HEMOGLOBIN 28.3 pg (27.0-33.0); MEAN CORPUSCULAR HGB CONC 31.4 g/dl (32.0-36.5); MEAN CORPUSCULAR VOLUME 90.1 fl (80.0-96.0); PLATELET COUNT, AUTOMATED 191 10^3/uL (150-450); RED BLOOD COUNT 4.14 10^6/uL (4.00-5.40); WHITE BLOOD COUNT 11.3 10^3/uL (4.0-10.0)
[2019-06-13 06:50] LABS: CALCIUM LEVEL 8.7 MG/DL (8.8-10.2); CREATININE FOR GFR 2.02 MG/DL (0.55-1.30); GLOMERULAR FILTRATION RATE 25.4 (>39); POTASSIUM SERUM 4.4 MEQ/L (3.5-5.1)
[2019-06-13] MEDS: IPRATROPIUM 0.5MG/ALBUTEROL 2.5MG INH SOL UD 3ML (DUONEB)(J7620) NEB PRN ×2 (07:52→07:54)
[2019-06-13] MEDS: ACETYLCYSTEINE 20% 4 ML VIAL (200MG/ML) INH SCH (07:54)
[2019-06-13] MEDS ORDERED: IPRATROPIUM 0.5MG/ALBUTEROL 2.5MG INH SOL UD 3ML (DUONEB)(J7620) NEB SCH (08:00)
[2019-06-13] MEDS ORDERED: IPRATROPIUM 0.5MG/ALBUTEROL 2.5MG INH SOL UD 3ML (DUONEB)(J7620) NEB PRN (08:30)
[2019-06-13] MEDS ORDERED: predniSONE 20 MG TAB PO SCH (09:00)
[2019-06-13] MEDS: PANTOPRAZOLE 20 MG TAB PO SCH (09:41)
[2019-06-13] MEDS: ALLOPURINOL 100 MG TAB PO SCH (09:41)
[2019-06-13 09:42] VITALS: BP 139/56
[2019-06-13] MEDS: PREGABALIN 75 MG CAP(LYRICA) PO SCH (09:42)
[2019-06-13] MEDS: ISOSORBIDE MON. (IMDUR) 30 MG XR TAB PO SCH (09:42)
[2019-06-13] MEDS: APIXABAN 2.5 MG TAB (ELIQUIS) PO SCH (09:42)
[2019-06-13] MEDS: guaiFENesin ER 600 MG TAB PO SCH (09:42)
[2019-06-13] MEDS: CALCITRIOL 0.25 MCG CAP (S0169) PO SCH (09:42)
[2019-06-13] MEDS: HumaLOG INSULIN (NovoLOG) PER UNIT SC SCH ×2 (09:43→09:44)
[2019-06-13] MEDS: ASPIRIN 81 MG ENTERIC TAB PO SCH (09:43)
[2019-06-13] MEDS: LEVEMIR (INSULIN DETEMIR) 1 UNITS/0.01ML SC SCH (09:45)
[2019-06-13] MEDS ORDERED: PRED10TA2 PO (11:06)
--- NOTE | 2019-06-13 14:05 | DS.PDOC ---
Discharge Summary General Date of Admission Jun 10, 2019 at 18:42 Date of Discharge 06/13/2019 Primary Care Physician: A Discharge Summary DISCHARGE DIAGNOSIS: Decompensated diastolic congestive heart failure SECONDARY DIAGNOSIS: 1. Shortness of breath 2. COPD 3. Diabetes mellitus 4. Hypertension 5 chronic kidney disease 6 atrial fibrillation 7 morbid obesity 8 hypovolemic hyponatremia 9 chest pain PROCEDURES PERFORMED DURING STAY: None. CONSULTANTS: None HOSPITAL COURSE: Patient is a 71 atrial female who complains of chest pain for one night she also tells me she has had progressively worsening shortness of breath since the beginning of the year. She was recently increased on her torsemide dosing but has not noticed any significant difference. She is sleeping in a dining room chair completely upright she wakes up at night short of breath and gets significantly more short of breath whenever lying flat she has noted progressively worsening swelling in her legs as well. She was diagnosed with decompensated diastolic congestive heart failure and begun on aggressive diuresis with significant improvement in the after mentioned symptoms over her short hospitalization. She was aggressively fluid restricted as well as salt restricted DISCHARGE MEDICATIONS: Please see below. ALLERGIES: Please see below. SUBJECTIVE: Patient patient tells me she is feeling significantly better today she slept well last night she did not have to sleep on a completely upright position she is breathing more easily she is ambulating better her exit sites tolerance has improved. otherwise patient denies chest pain, shortness, breath, nausea, vomiting, fevers, chills OBJECTIVE: PHYSICAL EXAMINATION: VITAL SIGNS: Please see below. GENERAL: Pleasant disheveled morbidly obese female sitting up in bed awake alert oriented speaking in complete sentences no acute distress HEENT: Moist mucous membranes no elevation and CVP CARDIOVASCULAR: S1 S2 regular no additional heart sounds appreciated. RESPIRATORY: Clear to auscultation bilaterally. No audible rales ABDOMINAL: Bowel sounds present abdomen soft and nontender, grossly obese EXTREMITIES: No clubbing, cyanosis, there is 1+ brawny edema bilaterally NEUROLOGICAL: Spontaneously moves all 4 extremities cranial 2 through 12 grossly intact, no gross focal deficits appreciated PSYCHOLOGICAL: Appropriate LABORATORY DATA, MICROBIOLOGY: Please see below. IMAGING STUDIES: Chest x-ray:Stable interstitial edema. ECHOCARDIOGRAM: 1. Normal global left ventricular systolic function. There were features of left ventricular diastolic dysfunction manifested by abnormal relaxation. 2. A small pericardial effusion was noted. No evidence of cardiac tamponade. 3. Trivial aortic stenosis was noted, but no aortic regurgitation. 4. There are features of elevated central venous pressure. The inferior vena cava was mildly enlarged. DVT prophylaxis ordered: Kay ASSESSMENT AND PLAN: This is a 79-year-old female with decompensated diastolic congestive heart failure PROBLEMS: 1. Acutely decompensated congestive heart failure with preserved ejection fraction: Her volume status is certainly improved at this time she has been on aggressive IV diuresis as well as 1800 mL fluid restriction and 2 g salt restricted diet. At this time she requests to be discharged home and that she is feeling significantly better. I suspect she still has some fluid on board would benefit from further diuresis she recently had her torsemide home dose and titrated up by primary care provider. We had several lengthy conversation regarding monitoring her daily weights as well as restricting her salt and fluid intake. She demonstrated good understanding all questions answered to her satisfaction to follow closely with her grocery store clerk Dr. Sanchez and primary care provider Dr. Gomez. At this time her presenting symptoms or complaints have resolved she is at her functional baseline has been cleared by physical therapy she is being discharged with new home services 2. Diabetes mellitus: Fingersticks well controlled while hospitalized was cont inued on insulin as well as sliding scale. 3. Hypertension: She was continued on her torsemide upon discharge. Continue with isosorbide mononitrate 4. CK D: Stable: She did have a mild bump in her creatinine at the day of discharge however her aggressive diuresis is being altered and she'll resume her home torsemide dosing 5. Atrial fibrillation: She is anticoagulated 6. Morbid obesity: Complicating care 7. Hypervolemic hyponatremia: Recommend outpatient follow-up with resolution once her volume status is completely optimized 8. COPD: She was started on prednisone with concern for possible decompensation however I suspect this is much less likely and she did improve with diuresis she'll be quickly tapered upon discharge 9. Gout: Continue with allopurinol 10. Dyslipidemia: Continue his Crestor 11. Chronic pain: Continue with Lyrica and hydrocodone 12. Anxiety: Continue with Xanax 13. Insomnia: Continue with Ambien when necessary upon discharge 14. Gastroesophageal reflux disease: Continue with pantoprazole 20 mg daily DISPOSITION: Home with services. DISCHARGE CONDITION: Improved and Stable. FOLLOW UP: PCP within 7 days, cardiology within 2 weeks ACTIVITY: As prior to admission. DIET: 2 g sodium consistent carb 1800 mL fluid restriction TIME SPENT ON DISCHARGE: 50 minutes Vital Signs/I&Os Vital Signs Date Time Temp Pulse Resp B/P (MAP) Pulse Ox O2 Delivery O2 Flow Rate FiO2 06/13/19 09:42 139/56 06/13/19 06:00 98.2 61 18 90 06/11/19 14:00 2.0 06/10/19 18:49 Nasal Cannula I&O- Last 24 Hours up to 6 AM 06/13/19 06:00 Intake Total 1400 ml Output Total 2250 ml Balance -850 ml Laboratory Data Labs 24H Laboratory Tests 2 06/12/19 16:51: Bedside Glucose (Misc Panel) 220H 06/12/19 20:56: Bedside Glucose (Misc Panel) 413H 06/13/19 05:46: Nucleated Red Blood Cells % (auto) 0.0, Anion Gap 6L, Glomerular Filtration Rate 25.4L, Blood Urea Nitrogen 63H, Creatinine 2.02H, Sodium Level 131L, Potassium Level 4.4, Chloride Level 93L, Carbon Dioxide Level 32, Calcium Level 8.7L CBC/BMP Laboratory Tests 06/13/19 05:46 Red Blood Count 4.14, Mean Corpuscular Volume 90.1, Mean Corpuscular Hemoglobin 28.3, Mean Corpuscular Hemoglobin Concent 31.4 L, Red Cell Distribution Width 16.1 H, Calcium Level 8.7 L FSBS Laboratory Tests Test 06/12/19 16:51 06/12/19 20:56 Range/Units Bedside Glucose (Misc Panel) 220 413 83-110 MG/DL Discharge Medications Scheduled Allopurinol (Allopurinol) 100 Mg Tab, 100 MG PO DAILY, (Reported) Apixaban (Eliquis) 2.5 Mg Tablet, 2.5 MG PO BID, (Reported) Aspirin (Aspir 81) 81 Mg Tab, 81 MG PO DAILY, (Reported) Calcitriol (Rocaltrol) 0.25 Mcg Capsule, 0.5 MCG PO DAILY, (Reported) Diclofenac Sodium (Diclofenac Sodium) 1% 100GM Gel..gram., 1 GM TOP BID, (Reported) APPLY TO FEET Insulin Aspart (Novolog Flexpen) 100 Unit/1 Ml Insuln.pen, 8 UNITS SC BID, (Reported) WITH LUNCH AND DINNER Insulin Degludec (Tresiba Flextouch U-100) 100 Unit/Ml Inj, 80 UNIT SC DAILY, (Reported) Isosorbide Mononitrate (Isosorbide Mononitrate ER) 30 Mg Tab, 30 MG PO DAILY, (Reported) Ketoconazole (Ketoconazole) 15 Gm Cream..g., 1 DOSE TOP BID, (Reported) APPLY TO FEET Pantoprazole Sodium (Pantoprazole Sodium) 20 Mg Tab, 20 MG PO DAILY, (Reported) Prednisone (Prednisone) 10 Mg Tablet, 1 TAB PO DAILY Pregabalin (Lyrica) 75 Mg Capsule, 75 MG PO BID, (Reported) Rosuvastatin Calcium (Crestor) 20 Mg Tab, 20 MG PO QHS, (Reported) Torsemide (Torsemide) 20 Mg Tablet, 20 MG PO BID, (Reported) Zolpidem Tartrate (Ambien) 10 Mg Tab, 10 M PO QHS, (Reported) Scheduled PRN Albuterol Sulfate (Albuterol Sulfate) 2.5 Mg/0.5 Ml Neb, 2.5 MG INH Q4H PRN for SHORTNESS OF BREATH, (Reported) Alprazolam (Alprazolam) 0.25 Mg Tablet, 0.25 MG PO DAILY PRN for ANXIETY, (Reported) Hydrocodone/Acetaminophen ([place] 10-325 Tablet) 1 Tab Tab, 1 TAB PO Q6H PRN for PAIN, (Reported) Nitroglycerin (Nitroglycerin) 0.4 Mg Sub, 0.4 MG SL NITRO PRN for CHEST PAIN, (Reported) Nystatin (Nystatin Powder) 100,000 Unit/Gm Pow, 1 DOSE TOP BID PRN for REDNESS/IRRITATION, (Reported) UNDER BREASTS AND GROIN AREA Allergies Coded Allergies: gabapentin (Verified Allergy, Severe, TROUBLE BREATHING AND HEADACHE, 03/26/19) lisinopril (Verified Allergy, Severe, 03/28/19) angioedema lip latex (Verified Allergy, Intermediate, RASH/ITCHING, 03/26/19) codeine (Verified Adverse Reaction, Mild, HEADACHE, 03/26/19) oxycodone (Verified Adverse Reaction, Mild, CONFUSION, 03/26/19) DENITA SORTO MD Jun 13, 2019 14:04
== END 2019-06-13 12:45 | disposition home health service (06) | DRG 291 ==
LOC: M ED 12:17 → EDBD 12:17 → M ED INP 18:42 → M MSPAV 20:53
PROVIDERS: ADMIT Hospitalist; ATTEND Internal Medicine
DX: I13.0 Hypertensive heart and chronic kidney disease with heart failure and stage 1 through stage 4 chronic kidney disease, or unspecified chronic kidney disease (principal); I50.33 Acute on chronic diastolic (congestive) heart failure; E87.1 Hypo-osmolality and hyponatremia; Z68.41 Body mass index [BMI] 40.0-44.9, adult; E11.9 Type 2 diabetes mellitus without complications; I48.91 Unspecified atrial fibrillation; J44.9 Chronic obstructive pulmonary disease, unspecified; E66.01 Morbid (severe) obesity due to excess calories; M10.9 Gout, unspecified; F41.9 Anxiety disorder, unspecified; G47.00 Insomnia, unspecified; K21.9 Gastro-esophageal reflux disease without esophagitis; G89.29 Other chronic pain; E78.5 Hyperlipidemia, unspecified; Z79.82 Long term (current) use of aspirin; Z79.899 Other long term (current) drug therapy; Z88.8 Allergy status to other drugs, medicaments and biological substances; Z91.040 Latex allergy status; Z88.5 Allergy status to narcotic agent; Z79.4 Long term (current) use of insulin; N18.3 Chronic kidney disease, stage 3 (moderate)

== ENCOUNTER 2019-06-28 23:00 | Emergency (ER) | payer MEDICARE ==
[~2019-06-28] VITALS: Ht 157.5 cm; Wt 102.7 kg
[~2019-06-28 23:00] MED LIST changes: -ALPRAZolam 0.25 MG TAB PO PRN; +ROCA0.25 PO; +TORS20TA2 PO
[2019-06-28] MEDS ORDERED: BELS1TAB4 (23:19)
[2019-06-28] MEDS ORDERED: BUME2TAB3 (23:19)
[2019-06-28] MEDS ORDERED: LISI-538 (23:19)
[2019-06-28 23:30] LABS: BASO % 0.2 % (0.0-1.0); EOS # 0.3 10^3/uL (0.0-0.5); HEMATOCRIT 40.4 % (36.0-47.0); HEMOGLOBIN 12.6 g/dl (12.0-15.5); LYMPH # 2.1 10^3/uL (1.5-5.0); LYMPH % 23.3 % (24.0-44.0); MEAN CORPUSCULAR HEMOGLOBIN 28.1 pg (27.0-33.0); MEAN CORPUSCULAR HGB CONC 31.2 g/dl (32.0-36.5); MONO # 1.3 10^3/uL (0.0-0.8); MONO % 14.2 % (0.0-5.0); NEUTROPHILS # 5.3 10^3/uL (1.5-8.5); NEUTROPHILS % 58.7 % (36.0-66.0); PLATELET COUNT, AUTOMATED 172 10^3/uL (150-450); RED BLOOD COUNT 4.49 10^6/uL (4.00-5.40)
[2019-06-28] MEDS ORDERED: MAALOX 30 ML SUSP *UDC PO ONE (23:45)
[2019-06-28] MEDS ORDERED: ONDANSETRON 4MG/2ML VIAL (J2405) IV ONE (23:45)
[2019-06-28] MEDS ORDERED: ASPIRIN 81 MG CHEW TABLET PO ONE (23:45)
[2019-06-29 00:01] LABS: ALBUMIN 3.5 GM/DL (3.2-5.2); ALT/SGPT 15 U/L (12-78); BILIRUBIN,DIRECT < 0.1 MG/DL (0.0-0.2); BILIRUBIN,TOTAL 0.3 MG/DL (0.2-1.0); BLOOD UREA NITROGEN 43 MG/DL (7-18); CALCIUM LEVEL 9.5 MG/DL (8.8-10.2); CARBON DIOXIDE LEVEL 35 MEQ/L (21-32); CHLORIDE LEVEL 96 MEQ/L (98-107); CK-MB VALUE MASS 3.1 NG/ML (<3.6); CPK CREATINE PHOSPHOKINASE 201 U/L (26-192); CREATININE FOR GFR 1.85 MG/DL (0.55-1.30); GLOMERULAR FILTRATION RATE 28.1 (>39); GLUCOSE, FASTING 169 MG/DL (70-100); MB/CK RELATIVE INDEX 1.54 (< OR =4); NT-PRO BNP 416 PG/ML (<450); POTASSIUM SERUM 4.3 MEQ/L (3.5-5.1); SODIUM LEVEL 136 MEQ/L (136-145); TOTAL PROTEIN 6.5 GM/DL (6.4-8.2); TROPONIN I < 0.02 NG/ML (< 0.10)
--- NOTE | 2019-06-29 01:23 | REP ---
Clinical: Acute chest pain . Comparison: 06/10/2019 . Findings: The mediastinum and cardiac silhouette are stable and within normal limits for portable technique. The lung chau are clear without acute consolidation, effusion, or pneumothorax. Skeletal structures are intact. Impression: No acute cardiopulmonary process appreciated. Electronically Signed by Rommel Hogan MD 06/29/2019 01:13 A
[2019-06-29] MEDS ORDERED: SIME180C PO (01:49)
[2019-06-29 01:52] VITALS: BP 134/62
--- NOTE | 2019-06-29 17:38 | ECGEPIP ---
[facility] - ED Test Date: 2019-06-28 Pat Name: BRIGID JAEGER Department: Room: - Gender: Female Systems Testing Laboratory Technician: ULISES : 1940 Requested By: JAIR Sanders Order Number: [id number] Reading MD: Saranya Mcpherson Measurements Intervals [place] Rate: 76 P: -23 KS: 185 QRS: 39 QRSD: 78 T: 121 QT: 344 QTc: 387 Interpretive Statements SINUS RHYTHM ST DEVIATION AND MODERATE T-WAVE ABNORMALITY, CONSIDER LATERAL ISCHEMIA INCREASED RATE 06/10/19 Electronically Signed on 06-29-2019 17:38:30 EDT by Saranya Mcpherson
== END 2019-06-29 02:05 | disposition home or self-care (01) ==
LOC: M ED 23:00
DX: R14.0 Abdominal distension (gaseous) (principal); I51.9 Heart disease, unspecified; E11.9 Type 2 diabetes mellitus without complications; J44.9 Chronic obstructive pulmonary disease, unspecified; I48.91 Unspecified atrial fibrillation; F17.210 Nicotine dependence, cigarettes, uncomplicated; Z91.040 Latex allergy status; Z88.5 Allergy status to narcotic agent; Z88.8 Allergy status to other drugs, medicaments and biological substances; Z79.82 Long term (current) use of aspirin; Z79.4 Long term (current) use of insulin; Z79.899 Other long term (current) drug therapy
CPT/HCPCS: 36600; 71045; 80048; 80076; 82550; 82553; 83605; 83880; 84443; 84484; 85025; 87040; 93005; 93041; 94760; 96374; 99285; J2405

== ENCOUNTER 2019-08-05 23:37 | Emergency (ER) | payer MEDICARE ==
[~2019-08-05] VITALS: Ht 162.6 cm; Wt 103.2 kg
[~2019-08-05 23:37] MED LIST changes: +BELS1TAB4; +BUME2TAB3; +LISI-538; +SIME180C PO
[2019-08-06] MEDS ORDERED: FUROSEMIDE 100 MG/10 ML VIAL (J1940) IV ONE (00:15)
[2019-08-06 00:21] VITALS: BP 161/65
[2019-08-06 00:57] LABS: BASO % 0.2 % (0.0-1.0); EOS # 0.2 10^3/uL (0.0-0.5); HEMATOCRIT 42.3 % (36.0-47.0); HEMOGLOBIN 12.9 g/dl (12.0-15.5); LYMPH # 1.6 10^3/uL (1.5-5.0); LYMPH % 15.7 % (24.0-44.0); MEAN CORPUSCULAR HEMOGLOBIN 26.9 pg (27.0-33.0); MEAN CORPUSCULAR HGB CONC 30.5 g/dl (32.0-36.5); MEAN CORPUSCULAR VOLUME 88.1 fl (80.0-96.0); MONO # 1.1 10^3/uL (0.0-0.8); MONO % 11.3 % (0.0-5.0); NEUTROPHILS # 7.1 10^3/uL (1.5-8.5); NEUTROPHILS % 70.2 % (36.0-66.0); PLATELET COUNT, AUTOMATED 207 10^3/uL (150-450); WHITE BLOOD COUNT 10.1 10^3/uL (4.0-10.0)
[2019-08-06 01:20] LABS: BLOOD UREA NITROGEN 36 MG/DL (7-18); CALCIUM LEVEL 8.8 MG/DL (8.8-10.2); CARBON DIOXIDE LEVEL 34 MEQ/L (21-32); CHLORIDE LEVEL 86 MEQ/L (98-107); CK-MB VALUE MASS 3.4 NG/ML (<3.6); CPK CREATINE PHOSPHOKINASE 168 U/L (26-192); GLOMERULAR FILTRATION RATE 30.9 (>39); GLUCOSE, FASTING 166 MG/DL (70-100); MB/CK RELATIVE INDEX 2.02 (< OR =4); POTASSIUM SERUM 4.6 MEQ/L (3.5-5.1); SODIUM LEVEL 128 MEQ/L (136-145); TROPONIN I < 0.02 NG/ML (< 0.10)
--- NOTE | 2019-08-06 05:52 | ECGEPIP ---
[facility] - ED Test Date: 2019-08-06 Pat Name: BRIGID JAEGER Department: Room: - Gender: Female Cleaner And Presser: ORESTES : 1940 Requested By: ARSLAN COYLE Order Number: [id number] Reading MD: Myles Mace Measurements Intervals [place] Rate: 63 P: 11 NV: 212 QRS: 37 QRSD: 86 T: 86 QT: 414 QTc: 426 Interpretive Statements SINUS RHYTHM WITH SINUS ARRHYTHMIA WITH FIRST DEGREE AV BLOCK NONSPECIFIC ST & T-WAVE ABNORMALITY SIMILAR TO 06/28/19 Electronically Signed on 08-06-2019 5:52:38 EDT by Myles Mace
== END 2019-08-06 02:21 | disposition left against medical advice (07) ==
LOC: M ED 23:37
DX: I51.9 Heart disease, unspecified (principal); E87.1 Hypo-osmolality and hyponatremia; I44.0 Atrioventricular block, first degree; I48.91 Unspecified atrial fibrillation; I25.10 Atherosclerotic heart disease of native coronary artery without angina pectoris; I10 Essential (primary) hypertension; J44.9 Chronic obstructive pulmonary disease, unspecified; N18.9 Chronic kidney disease, unspecified; K21.9 Gastro-esophageal reflux disease without esophagitis; E66.01 Morbid (severe) obesity due to excess calories; Z95.5 Presence of coronary angioplasty implant and graft; F17.200 Nicotine dependence, unspecified, uncomplicated; Z79.82 Long term (current) use of aspirin; Z79.01 Long term (current) use of anticoagulants; Z79.4 Long term (current) use of insulin; Z79.899 Other long term (current) drug therapy; Z88.5 Allergy status to narcotic agent; Z88.8 Allergy status to other drugs, medicaments and biological substances; Z91.040 Latex allergy status

== ENCOUNTER 2019-09-21 16:59 | Inpatient (IN) | payer MEDICARE ==
[~2019-09-21] VITALS: Ht 154.9 cm; Wt 103.3 kg
[~2019-09-21 16:59] MED LIST changes: -BELS1TAB4; +BELS1TAB4 PO; +DICY10CA13 PO; -LISI-538; +MAGN400T3 PO; +SUCR1TA PO; +TORS10TA3 PO
--- NOTE | 2019-09-21 17:37 | REP ---
Single view chest: 09/21/2019. Indication: Dyspnea. Comparison: 08/17/2019. Findings: There are increased interstitial markings particularly on the right. The cardiac silhouette is at the upper limits of normal in size. Aortic atherosclerotic disease is present. There is no pleural effusion or pneumothorax. Impression: Findings suggestive of CHF/pulmonary edema. Electronically Signed by Chava Jarrett DO 09/21/2019 05:29 P
[2019-09-21 17:53] LABS: VENOUS BASE EXCESS 7.5 (-2.0-2.0); VENOUS HCO3 35.6 MEQ/L (23.0-27.0); VENOUS O2 SATURATION 81.4 % (60.0-80.0); VENOUS PARTIAL PRESSURE CO2 66.8 mmHg (38.0-50.0); VENOUS PARTIAL PRESSURE O2 47.2 mmHg (30.0-50.0); VENOUS PH 7.344 UNITS (7.330-7.430); VENOUS TOTAL CO2 37.6 MEQ/L (24.0-28.0)
[2019-09-21 18:03] LABS: BASO % 0.3 % (0.0-1.0); EOS # 0.2 10^3/uL (0.0-0.5); EOS % 2.2 % (0.0-3.0); HEMATOCRIT 40.6 % (36.0-47.0); HEMOGLOBIN 12.1 g/dl (12.0-15.5); LYMPH # 1.6 10^3/uL (1.5-5.0); LYMPH % 18.3 % (24.0-44.0); MEAN CORPUSCULAR HEMOGLOBIN 26.6 pg (27.0-33.0); MEAN CORPUSCULAR HGB CONC 29.8 g/dl (32.0-36.5); MEAN CORPUSCULAR VOLUME 89.2 fl (80.0-96.0); MONO % 11.8 % (0.0-5.0); NEUTROPHILS # 5.8 10^3/uL (1.5-8.5); NEUTROPHILS % 66.2 % (36.0-66.0); PLATELET COUNT, AUTOMATED 197 10^3/uL (150-450); RED BLOOD COUNT 4.55 10^6/uL (4.00-5.40); WHITE BLOOD COUNT 8.8 10^3/uL (4.0-10.0)
[2019-09-21 18:07] LABS: INR 1.07; PROTHROMBIN TIME 13.6 SECONDS (11.8-14.0)
[2019-09-21 18:40] LABS: ALBUMIN 3.2 GM/DL (3.2-5.2); ALT/SGPT 16 U/L (12-78); BILIRUBIN,DIRECT < 0.1 MG/DL (0.0-0.2); BILIRUBIN,TOTAL 0.3 MG/DL (0.2-1.0); BLOOD UREA NITROGEN 46 MG/DL (7-18); CARBON DIOXIDE LEVEL 31 MEQ/L (21-32); CHLORIDE LEVEL 90 MEQ/L (98-107); CK-MB VALUE MASS 3.9 NG/ML (<3.6); CPK CREATINE PHOSPHOKINASE 204 U/L (26-192); CREATININE FOR GFR 1.83 MG/DL (0.55-1.30); GLOMERULAR FILTRATION RATE 28.4 (>39); GLUCOSE, FASTING 136 MG/DL (70-100); MB/CK RELATIVE INDEX 1.91 (< OR =4); NT-PRO BNP 500 PG/ML (<450); POTASSIUM SERUM 6.5 MEQ/L (3.5-5.1); SODIUM LEVEL 129 MEQ/L (136-145); TOTAL PROTEIN 6.7 GM/DL (6.4-8.2); TROPONIN I < 0.02 NG/ML (< 0.10)
[2019-09-21] MEDS ORDERED: methylPREDNISolone INJ 125 MG/2 ML VIAL (J2930) IV ONE (19:15)
[2019-09-21] MEDS ORDERED: IPRATROPIUM 0.5MG/ALBUTEROL 2.5MG INH SOL UD 3ML (DUONEB)(J7620) NEB ONE (19:15)
[2019-09-21] MEDS ORDERED: FUROSEMIDE 40 MG/4 ML VIAL (J1940) IV ONE (19:30)
[2019-09-21] MEDS ORDERED: MOM 30ML SUSPENSION UDC PO PRN (20:45)
[2019-09-21] MEDS ORDERED: ACETAMINOPHEN TAB 650MG DOSE (2X325MG) PO PRN (20:45)
[2019-09-21] MEDS: HumaLOG INSULIN (NovoLOG) PER UNIT SC SCH (21:00)
[2019-09-21] MEDS ORDERED: IPRATROPIUM 0.5MG/ALBUTEROL 2.5MG INH SOL UD 3ML (DUONEB)(J7620) NEB PRN (21:00)
[2019-09-21] MEDS ORDERED: GLUCOSE 4 GM CHEW TABLET PO PRN (21:30)
[2019-09-21] MEDS ORDERED: DEXTROSE 50% 50 ML SYRINGE IV PRN (21:30)
[2019-09-21] MEDS ORDERED: GLUCAGON FOR INJ 1 MG VIAL (J1610) SC PRN (21:30)
[2019-09-21] MEDS ORDERED: NITROGLYCERIN 0.4 MG SUBL TABLET SL PRN (21:45)
[2019-09-21] MEDS ORDERED: DICYCLOMINE 10 MG CAP PO PRN (21:45)
[2019-09-21] MEDS ORDERED: ALPRAZolam 0.25 MG TAB PO PRN (21:45)
[2019-09-21] MEDS ORDERED: hydrALAZINE INJ 20 MG/ML VIAL IV PRN (22:30)
--- NOTE | 2019-09-21 22:49 | HPEPDOC ---
[facility] Medical History & Physical Date of Admission Sep 21, 2019 Date of Service: Sep 21, 2019 Attending Physician: MELVIN MENA DO History and Physical CHIEF COMPLAINT: Shortness of Breath HISTORY OF PRESENT ILLNESS: Patient is a 79-year-old female with multiple comorbid health conditions who presented to the [facility] emergency department with complaint of worsening shortness of breath. She states that for the past week or so she's been developing some shortness of breath. She states that on Friday, was when it started and has progressively gotten worse since then. Her shortness of breath is worse with exertion. She denies any chest pain. She denies any increased swelling in her legs. She does state that she has noticed that she's been gaining some weight over the past week. She admits to shortness of breath when lying flat and states that she has not been able to lie flat for some time. She denies any fevers or chills. She states that she does have a cough which is chronic. She admits to sputum production which is clear. She was to be compliant with her medications. 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 In the ER the patient received a chest x-ray which demonstrated vascular congestion consistent with CHF exacerbation. She received 40mg IV lasix. She has been continued on 2L nasal canula with appropriate oxygenation. Her BNP was elevated at 500. Additionally, patient was hyperkalemic on admission with a po tassium of 6.5 and repeat of 5.4. Hospitalist service was consulted for further evaluation and management of the patient PAST MEDICAL HISTORY: 1. Coronary disease, status post per cutaneous intervention January 2002 with 30% occlusion of the right coronary artery. 2. Grade 2. Chronic diastolic congestive heart failure. 3. Aortic sclerosis without stenosis. 4. Atrial fibrillation 5. Insulin-dependent diabetes mellitus with neuropathy. 6. Hypertension 7. Chronic kidney disease 8. Gastroesophageal reflux disease, on chronic proton pump inhibitor 9. COPD 10. Morbid obesity PAST SURGICAL HISTORY: 1. 3. 2. Total hysterectomy. 3. Abdominal hernia repair 4. Bilateral knee surgeries 5. Right carpal tunnel release 6. Right rotator cuff repair SOCIAL HISTORY: Patient is a former smoker. She denies drinking any alcohol. She currently lives at home alone, however, has a home health aide who comes and helps her with her medications FAMILY HISTORY: Patient's father from a myocardial infarction at the age 55. Her mother from complications of poorly controlled diabetes. ALLERGIES: Please see below. REVIEW OF SYSTEMS: CONSTITUTIONAL: Denies fevers, chills, night sweats. Admits to weight gain. Denies unintentional weight loss. HEENT:. Denies change in her vision or hearing. Denies dysphagia or odynophagia. Denies changes in her voice CARDIOVASCULAR:. Denies chest pain, denies palpitations or feelings of heart racing. RESPIRATORY:. Admits to shortness of breath at rest. Admits to worsening stress of breath with exertion and lying flat. Admits to cough and clear sputum production GASTROINTESTINAL: Denies abdominal pain. Denies nausea, vomiting, diarrhea, constipation. GENITOURINARY: Denies dysuria, denies increased frequency, urgency. SKIN:. Denies any rash or lesions. MUSCULOSKELETAL: Admits to chronic pain\neuropathy NEUROLOGICAL:. Denies any change in her gait, speech, denies any muscle weakness. PSYCHIATRIC: Admits to anxiety ENDOCRINE:. Denies any heat intolerance or cold intolerance. HEMATOLOGIC/LYMPHATIC:. Denies any easy bruising or bleeding. HOME MEDICATIONS: Please see below. PHYSICAL EXAMINATION: VITAL SIGNS: Temperature 98.0, pulse 62, respiratory rate , blood pressure 169/107, pulse oximetry 92% on 2L Nasal Canula GENERAL APPEARANCE: Awake, alert and oriented. Appears in no acute distress, sitting comfortably in chair HEENT:, Traumatic, normocephalic. Eyes nonicteric. Trachea is midline. Nasal cannula in place. . Mucous membranes are pink and moist. Mallampati 4 CARDIOVASCULAR: S1, S2, regular rate and rhythm. No clicks, rubs or murmurs auscultated. Slight displaced PMI LUNGS: Decreased breath sounds bilaterally with a prolonged expiratory phase. There are scattered wheezes throughout. Symmetric chest expansion. There is no rales or rhonchi. ABDOMEN:. Obese, soft, nondistended, nontender, no rebound tenderness or guarding. Normoactive bowel sounds throughout. No masses or hernias.. MUSCULOSKELETAL: 5 out of 5 muscle strength testing in upper and lower extremities bilaterally. EXTREMITIES:, 1+ nonpitting edema bilateral lower extremities. Some tenderness of the anterior shins. SKIN: Multiple keratosis throughout patient's back, legs and abdomen. NEUROLOGICAL: No focal neurological deficits. PSYCHIATRIC: Mood and affect appear appropriate for situation LABORATORY DATA: See below. IMAGING: Single view chest: 09/21/2019. Indication: Dyspnea. Comparison: 08/17/2019. Findings: There are increased interstitial markings particularly on the right. The cardiac silhouette is at the upper limits of normal in size. Aortic atherosclerotic disease is present. There is no pleural effusion or pneumothorax. Impression: Findings suggestive of CHF/pulmonary edema. Electronically Signed by Chava Jarrett DO 09/21/2019 05:29 P MICROBIOLOGY: Please see below. ASSESSMENT: Patient is a 79-year-old female presented with [facility] emergency department with complaint of shortness of breath is worsening since last week. Patient received a chest x-ray new murmur which demonstrated likely pulmonary edema. PLAN: 1. Acute on chronic diastolic congestive heart failure exacerbation -Chest x-ray demonstrated acid ingestion. Patient has slightly elevated BNP of 500. She received 40 mg IV Lasix in the ED -Plasty. Admit patient to [facility] with remote telemetry. We'll continue IV Lasix 40 mg every 8 hours with a net negative of 3 L. Fluid restriction of 1200 mL. -Remote telemetry 2. Chronic kidney disease -Patient has a history of chronic kidney disease. Today her creatinine is 1.83. Her baseline is around 1.7-2 unlikely that she has a acute kidney injury this point in time. -Patient is currently receiving IV Lasix. Will monitor creatinine and follow basic metabolic panel -Continue calcitriol 3. Hyperkalemia -Possibly secondary to her chronic kidney disease. Patient is currently receiving Lasix. Will monitor potassium with BMP in the morning. -Patient is currently on remote telemetry -Will hold lisinopril -Consider Kayexalate if Potassium does not correct with diuresis 4. Hyponatremia -Does not appear to be acute, likely secondary to the patient's congestive heart failure exacerbation. currently receiving IV Lasix. Will continue to monitor. 5. Coronary artery disease -Continue with aspirin and/or nitroglycerin when necessary and statin. 6. History of Atrial fibrillation -Patient is a history of atrial fibrillation. She states she does not take any anticoagulation. She states that she was on Eliquis in the past and was taken off it. Unclear why the patient anticoagulation was discontinued. Will hold off anticoagulation for now until evaluated by the primary team. -Currently in Sinus rhythm 8. Insulin dependent diabetes mellitus with neuropathy -Place patient on Levemir 40 units once daily with sliding scale. Will just assess her during her hospitalization. -Consistent carbohydrate diet 9. Hypertension -Continue with Imdur 30 mg -Hold lisinopril -Patient currently receiving lasix 40mg Q8h. Her HTN is likely worsened by h er volume overload. Will continue to trend. Will likely correct with diuresis -Hydralazine Q4H PRN for SBP > 170 10. COPD -Patient has a history of COPD. Does not appear to be in an acute exacerb ation. Patient is currently on 2L NC which is her baseline. -Duonebs prn -Appears patient is not on any maintenance inhalers and only uses Nebulizer as needed. 11. GERD -Continue PPI 12. Morbid Obesity -BMI of 40.7 13. HOWARD -Patient has a history of HOWARD. She is noncompliant with CPAP as she states the mask is uncomfortable to sleep with 14. DVT prophylaxis -Heparin SQ I, Melvin Mena, have independently examined this patient and performed my own physical exam, as well as reviewed the documentation and edited where necessary. I have discussed in detail with the resident / student the findings and plan of treatment as documented by the resident / student and edited their note. I agree with their findings and treatment plan and have edited their documentation. I will continue to follow the patient during this hospital stay. Vital Signs Vital Signs Date Time Temp Pulse Resp B/P (MAP) Pulse Ox O2 Delivery O2 Flow Rate FiO2 09/21/19 21:16 68 18 168/89 (115) 95 Room Air 09/21/19 17:55 2.0 09/21/19 17:15 98.0 Laboratory Data Labs 24H Laboratory Tests 2 09/21/19 17:44: Immature Granulocyte % (Auto) 1.2, Neutrophils (%) (Auto) 66.2H, Lymphocytes (%) (Auto) 18.3L, Monocytes (%) (Auto) 11.8H, Eosinophils (%) (Auto) 2.2, Basophils (%) (Auto) 0.3, Neutrophils # (Auto) 5.8, Lymphocytes # (Auto) 1.6, Monocytes # (Auto) 1.0H, Eosinophils # (Auto) 0.2, Basophils # (Auto) 0.0, Nucleated Red Blood Cells % (auto) 0.0, Prothrombin Time 13.6, Prothromb Time International Ratio 1.07, Blood Gas Bicarbonate Standard 31.0, Venous Blood pH 7.344, Venous Blood Partial Pressure CO2 66.8H, Venous Blood Partial Pressure O2 47.2, Venous Blood Total Carbon Dioxide 37.6H, Venous Blood HCO3 35.6H, Venous Blood Oxygen Saturation 81.4H, Venous Blood Base Excess 7.5H, Anion Gap 8, Glomerular Filtration Rate 28.4L, Lactic Acid Level 1.4, Calcium Level 9.0, Total Bilirubin 0.3, Direct Bilirubin < 0.1, Aspartate Amino Transf (AST/SGOT) 23, Alanine Aminotransferase (ALT/SGPT) 16, Alkaline Phosphatase 82, Total Creatine Kinase 204H, Creatine Kinase MB 3.9H, Creatine Kinase MB Relative Index 1.91, Troponin I < 0.02, [id number]-Type Natriuretic Peptide 500H, Total Protein 6.7, Albumin 3.2, Albumin/Globulin Ratio 0.91L, Thyroid Stimulating Hormone (TSH) 4.840H CBC/BMP Laboratory Tests 09/21/19 17:44 09/21/19 19:46 Microbiology Microbiology 09/21/19 Blood Culture, Received Pending 09/21/19 Respiratory Virus Panel (PCR) (DANITA) - Final, Complete 09/21/19 Blood Culture, Received Pending Home Medications Scheduled Allopurinol (Allopurinol) 100 Mg Tab, 100 MG PO DAILY Aspirin (Aspir 81) 81 Mg Tab, 81 MG PO DAILY Calcitriol (Rocaltrol) 0.25 Mcg Capsule, 0.5 MCG PO DAILY Diclofenac Sodium (Diclofenac Sodium) 1% 100GM Gel..gram., 1 GM TOP BID APPLY TO FEET Insulin Aspart (Novolog Flexpen) 100 Unit/1 Ml Insuln.pen, 8 UNITS SC BID WITH LUNCH AND DINNER Insulin Degludec (Tresiba Flextouch U-100) 100 Unit/Ml Inj, 80 UNIT SC DAILY Isosorbide Mononitrate (Isosorbide Mononitrate ER) 30 Mg Tab, 30 MG PO DAILY Lisinopril (Lisinopril) 20 Mg Tablet, 20 MG PO DAILY Magnesium Oxide (Magnesium Oxide) 400 Mg Tablet, 400 MG PO DAILY Pantoprazole Sodium (Pantoprazole Sodium) 20 Mg Tab, 20 MG PO DAILY Pregabalin (Lyrica) 75 Mg Capsule, 75 MG PO TID Ropinirole HCl (Requip) 0.25 Mg Tablet, 0.25 MG PO QHS Rosuvastatin Calcium (Crestor) 20 Mg Tab, 20 MG PO QHS Torsemide (Torsemide) 10 Mg Tablet, 50 MG PO BID Scheduled PRN Albuterol Sulfate (Albuterol Sulfate) 2.5 Mg/0.5 Ml Neb, 2.5 MG INH Q4H PRN for SHORTNESS OF BREATH Alprazolam (Alprazolam) 0.25 Mg Tablet, 0.25 MG PO DAILY PRN for ANXIETY Dicyclomine HCl (Dicyclomine HCl) 10 Mg Capsule, 10 MG PO TID PRN for ABDOMINAL PAIN Hydrocodone/Acetaminophen ([place] 10-325 Tablet) 1 Tab Tab, 1 TAB PO Q6H PRN for PAIN Nitroglycerin (Nitroglycerin) 0.4 Mg Sub, 0.4 MG SL NITRO PRN for CHEST PAIN Nystatin (Nystatin Powder) 100,000 Unit/Gm Pow, 1 DOSE TOP BID PRN for REDNESS/IRRITATION UNDER BREASTS AND GROIN AREA Simethicone (Simethicone) 180 Mg Capsule, 180 MG PO TID PRN for GAS PAIN Suvorexant (Belsomra) 20 Mg Tablet, 20 MG PO QHS PRN for SLEEP Zolpidem Tartrate (Ambien) 10 Mg Tab, 10 MG PO QHS PRN for SLEEP Allergies Coded Allergies: gabapentin (Verified Allergy, Severe, TROUBLE BREATHING AND HEADACHE, 08/17/19) lisinopril (Verified Allergy, Severe, 08/17/19) angioedema lip latex (Verified Allergy, Intermediate, RASH/ITCHING, 08/17/19) codeine (Verified Adverse Reaction, Mild, HEADACHE, 08/17/19) oxycodone (Verified Adverse Reaction, Mild, CONFUSION, 08/17/19) A-FIB/CHADSVASC A-FIB History Current/History of A-Fib/PAF?: Yes Current PO Anticoag Therapy: No Treatment Treatment ordered: NONE JAIR BARON DO Sep 21, 2019 22:49 MELVIN MENA DO Sep 24, 2019 06:21
[2019-09-22] MEDS: PREGABALIN 75 MG CAP(LYRICA) PO SCH ×4 (00:11→20:43)
[2019-09-22] MEDS: HEPARIN SOD (PORCINE) 5000 UNITS/ML VIAL SC SCH ×3 (00:11→20:44)
[2019-09-22] MEDS: ROSUVASTATIN 10 MG TAB (CRESTOR) PO SCH ×2 (00:11→20:44)
[2019-09-22 01:30] VITALS: BP 162/62
[2019-09-22] MEDS ORDERED: ALPRAZolam 0.25 MG TAB PO ONE (02:00)
[2019-09-22] MEDS: FUROSEMIDE 40 MG/4 ML VIAL (J1940) IV SCH ×3 (04:41→20:44)
[2019-09-22] MEDS ORDERED: SOD POLYSTYRENE SULFONATE SUSP 15 GM/60 ML UD PO ONE (05:30)
[2019-09-22] MEDS ORDERED: CALCIUM GLUCONATE 1,000 MG in D5W MINI-BAG PLUS 100 ML IV ONE (05:30)
[2019-09-22] MEDS ORDERED: ALBUTEROL SULFATE 2.5 MG/0.5 ML INH NEB SOLN INH PRN (05:30)
[2019-09-22 06:34] LABS: HEMATOCRIT 41.3 % (36.0-47.0); HEMOGLOBIN 12.7 g/dl (12.0-15.5); MEAN CORPUSCULAR HEMOGLOBIN 26.6 pg (27.0-33.0); MEAN CORPUSCULAR HGB CONC 30.8 g/dl (32.0-36.5); MEAN CORPUSCULAR VOLUME 86.4 fl (80.0-96.0); PLATELET COUNT, AUTOMATED 207 10^3/uL (150-450); RED BLOOD COUNT 4.78 10^6/uL (4.00-5.40); WHITE BLOOD COUNT 7.8 10^3/uL (4.0-10.0)
[2019-09-22 06:59] LABS: CALCIUM LEVEL 9.7 MG/DL (8.8-10.2); CREATININE FOR GFR 1.64 MG/DL (0.55-1.30); GLOMERULAR FILTRATION RATE 32.3 (>39); POTASSIUM SERUM 4.8 MEQ/L (3.5-5.1)
[2019-09-22 08:00] VITALS: BP 140/61
--- NOTE | 2019-09-22 08:07 | ECGEPIP ---
[facility] - ED Test Date: 2019-09-21 Pat Name: BRIGID JAEGER Department: Room: - Gender: Female Field Sales Representative: kristine : 1940 Requested By: Saranya Mcpherson Order Number: [id number] Reading MD: Saranya Mcpherson Measurements Intervals [place] Rate: 62 P: -33 MD: 184 QRS: 42 QRSD: 79 T: 116 QT: 380 QTc: 387 Interpretive Statements SINUS RHYTHM NONSPECIFIC ST & T-WAVE ABNORMALITY similar to prior EKG 08/18/19 Electronically Signed on 09-22-2019 8:07:24 EST by Saranya Mcpherson
[2019-09-22] MEDS: ASPIRIN 81 MG ENTERIC TAB PO SCH (08:42)
[2019-09-22] MEDS: PANTOPRAZOLE 20 MG TAB PO SCH (08:42)
[2019-09-22] MEDS: ISOSORBIDE MON. (IMDUR) 30 MG XR TAB PO SCH (08:42)
[2019-09-22] MEDS: allopurinoL 100 MG TAB PO SCH (08:42)
[2019-09-22] MEDS: LEVEMIR (INSULIN DETEMIR) 1 UNITS/0.01ML SC SCH (08:43)
[2019-09-22] MEDS: HumaLOG INSULIN (NovoLOG) PER UNIT SC SCH ×4 (08:43→20:44)
[2019-09-22] MEDS ORDERED: PREVNAR 13 VACCINE SYRINGE (CPT CODE:90670) IM ONE (09:00)
[2019-09-22 12:00] VITALS: BP 152/67
[2019-09-22 16:00] VITALS: BP_SYST 142; BP_SYST 147; BP_DIAS 64; BP_DIAS 65
--- NOTE | 2019-09-22 19:16 | IPNPDOC ---
Date Seen The patient was seen on 09/22/19. Progress Note SUBJECTIVE: 79 y.o female w/ PMH of CHF, CAD, DM, COPD, HOWARD, Gout & HTN was admitted for acute CHF exacerbation. She has been treated w/ IV Lasix with good response and improvement in dyspnea. She is resting comfortably in chair today, continues to have slight dyspnea at rest, improved from presentation but not at baseline. She is otherwise experiencing restless legs, no other complaints. She denies any CP, N/V, abdominal pain or diarrhea. 10 point review of system is negative except for above. OBJECTIVE PHYSICAL EXAMINATION: VITAL SIGNS: Please see below. GENERAL: Obese HEENT: Normocephalic, atraumatic, moist mucous membranes CARDIOVASCULAR: S1, S2 RESPIRATORY: scattered rhonchi ABDOMINAL: soft, non-tender, non-distended, +BS EXTREMITIES: ROM intact NEUROLOGICAL: no focal deficits PSYCHOLOGICAL: calm and cooperative LABORATORY DATA, IMAGING STUDIES, MICROBIOLOGY: Please see below. DVT prophylaxis ordered?: Yes ASSESSMENT AND PLAN: 79 y.o female with an extensive medical history is admitted for Acute on chronic CHF exacerbation. PROBLEMS: 1. Acute on chronic diastolic heart failure: TTE from 06/2019 w/ preserved EF and grade 1 diastolic dysfunction. continue IV lasix, monitor Is/Os, daily weight & fluid restriction of 1200 ml/day. 2. CAD: stable, continue optimal medical management. 3. DM: continue Levemir 40 units daily, sliding scale qAC & HS. 4. COPD: stable, continue supplemental O2 to maintain sats of 88-92%, continue home regimen. 5. Gout: continue Allopurinol 6. HTN: continue home Imdur & lisinopril. DVT Prophylaxis: Heparin SubQ GI Prophylaxis: home PPI VS, I&O, 24H, Fishbone Vital Signs/I&O Vital Signs Date Time Temp Pulse Resp B/P (MAP) Pulse Ox O2 Delivery O2 Flow Rate FiO2 09/22/19 16:00 97.5 66 20 147/65 (92) 95 Nasal Cannula 2.0 I&O- Last 24 Hours up to 6 AM 09/22/19 06:00 Intake Total 240 ml Output Total 1125 ml Balance -885 ml Laboratory Data 24H LABS Laboratory Tests 2 09/21/19 23:37: Bedside Glucose (Misc Panel) 218H 09/22/19 06:10: Nucleated Red Blood Cells % (auto) 0.0, Anion Gap 9, Glomerular Filtration Rate 32.3L, Calcium Level 9.7 09/22/19 11:11: Bedside Glucose (Misc Panel) 211H 09/22/19 16:16: Bedside Glucose (Misc Panel) 177H CBC/BMP Laboratory Tests 09/21/19 19:46 09/22/19 06:10 09/22/19 09:23 09/22/19 13:17 09/22/19 17:19 Microbiology Microbiology 09/21/19 Blood Culture - Preliminary, Resulted No growth after 24 hours . All specim... 09/21/19 Respiratory Virus Panel (PCR) (DANITA) - Final, Complete 09/21/19 Blood Culture - Preliminary, Resulted No growth after 24 hours . All specim... SCOTT NASSAR MD Sep 22, 2019 19:16
[2019-09-22 20:00] VITALS: BP 130/68
[2019-09-22] MEDS ORDERED: rOPINIRole 0.25 MG TAB(REQUIP) PO SCH (21:00)
[2019-09-23] VITALS: BP 172/70
[2019-09-23 04:00] VITALS: BP 148/64
[2019-09-23] MEDS: FUROSEMIDE 40 MG/4 ML VIAL (J1940) IV SCH (04:53)
[2019-09-23 05:58] LABS: HEMATOCRIT 40.6 % (36.0-47.0); HEMOGLOBIN 12.4 g/dl (12.0-15.5); MEAN CORPUSCULAR HEMOGLOBIN 26.3 pg (27.0-33.0); MEAN CORPUSCULAR HGB CONC 30.5 g/dl (32.0-36.5); MEAN CORPUSCULAR VOLUME 86.2 fl (80.0-96.0); PLATELET COUNT, AUTOMATED 222 10^3/uL (150-450); RED BLOOD COUNT 4.71 10^6/uL (4.00-5.40); WHITE BLOOD COUNT 11.1 10^3/uL (4.0-10.0)
[2019-09-23 06:03] LABS: CALCIUM LEVEL 9.7 MG/DL (8.8-10.2); CREATININE FOR GFR 1.51 MG/DL (0.55-1.30); GLOMERULAR FILTRATION RATE 35.5 (>39); MAGNESIUM LEVEL 1.6 MG/DL (1.8-2.4); PHOSPHORUS LEVEL 3.7 MG/DL (2.5-4.9); POTASSIUM SERUM 4.2 MEQ/L (3.5-5.1)
[2019-09-23] MEDS: HumaLOG INSULIN (NovoLOG) PER UNIT SC SCH (07:23)
--- NOTE | 2019-09-23 07:25 | ECHO ---
DATE OF PROCEDURE: 09/22/2019 AGE: 79 GENDER: Female. HEIGHT: 61 inches. Weight: 224 pounds. Body Surface Area: 1.99 m2. INPATIENT: PCU - Room 3224 REFERRING PHYSICIAN: Hunter Montes INDICATION: Heart failure. MEASUREMENTS 2-D Measurements: RV: 3.6 cm LV: 5.0 cm Septum: 1.2 cm Posterior wall: 1.2 cm Aortic root: 3.1 cm LA: 3.9 cm LVEF: 75% Doppler Measurements: AV: 2.0 m/s LVOT: 0.94 m/s LVOT diameter: 2.0 cm MV - E 73 A 97 EA ratio 0.7 Early mitral deceleration time: 206 ms E prime medialL: 5.1 A prime medial: 8.2 E prime lateral: 8.8 Average E/E prime ratio: 10.5/PCWP 14.9 mmHg PV: 0.9 m/s Pulmonary artery acceleration time: 114 ms PASP: 30 mmHg IVC: 2.1 cm COMMENTS: Normal sinus rhythm without intraventricular conduction disturbance. Somewhat technically challenging study in light of the patient's body habitus, but diagnostically useful information was still obtained. M-mode and two-dimensional echocardiography was performed with pulsed, continuous wave, color flow and tissue Doppler studies. Borderline concentric left ventricle hypertrophy with hyperkinetic wall motion. Borderline left atrial enlargement with grade 1 LV diastolic dysfunction and currently mildly elevated estimated mean left atrial pressure. Normal right heart chamber sizes and motion with currently borderline pulmonary hypertension. Normal IVC size and collapse against an elevated central venous pressure at this time. Mild aortic valvular sclerosis without functional abnormality. Normal aortic dimensions. Mildly thickened mitral annulus, but normal leaflet thickness and excursion with no posterior systolic buckling. No apparent mitral insufficiency. Normal appearing tricuspid valve with no more than trace to very mild insufficiency. No apparent intracardiac mass. Small circumferential pericardial effusion without evidence of cardiac chamber compression.
--- NOTE | 2019-09-23 08:07 | ECGEPIP ---
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 LA conduction disturbance. Slow precordial R-wave progression Anterolateral ST/T-wave abnormalities. No change from 09/21/19. Electronically Signed on 09-23-2019 8:06:48 EST by Juarez Headley
[2019-09-23] MEDS ORDERED: lisinopriL 20 MG TAB PO SCH (09:00)
[2019-09-23] MEDS ORDERED: CALCITRIOL 0.25 MCG CAP (S0169) PO SCH (09:00)
[2019-09-23] MEDS ORDERED: MAGNESIUM OXIDE 400 MG TAB (MAG-OX) PO SCH (09:00)
[2019-09-23] MEDS: PANTOPRAZOLE 20 MG TAB PO SCH (09:06)
[2019-09-23 09:07] VITALS: BP 110/68
[2019-09-23] MEDS: PREGABALIN 75 MG CAP(LYRICA) PO SCH (09:07)
[2019-09-23] MEDS: allopurinoL 100 MG TAB PO SCH (09:07)
[2019-09-23] MEDS: ISOSORBIDE MON. (IMDUR) 30 MG XR TAB PO SCH (09:07)
[2019-09-23] MEDS: HEPARIN SOD (PORCINE) 5000 UNITS/ML VIAL SC SCH (09:07)
[2019-09-23] MEDS: ASPIRIN 81 MG ENTERIC TAB PO SCH (09:07)
[2019-09-23] MEDS: LEVEMIR (INSULIN DETEMIR) 1 UNITS/0.01ML SC SCH (09:08)
[2019-09-23] MEDS ORDERED: REQU1TAB14 PO (11:29)
--- NOTE | 2019-09-23 18:32 | DS.PDOC ---
Discharge Summary General Date of Admission Sep 21, 2019 at 21:07 Date of Discharge 09/23/19 Attending Physician: SCOTT NASSAR MD Discharge Summary PROCEDURES PERFORMED DURING STAY: None ADMITTING DIAGNOSES: 1. Acute on chronic CHF, JIM on CKD DISCHARGE DIAGNOSES: 1. Acute on chronic CHF, JIM on CKD COMPLICATIONS/CHIEF COMPLAINT: Chf, Dyspnea. HISTORY OF PRESENT ILLNESS: SUBJECTIVE: 79 y.o female w/ PMH of CHF, CAD, DM, COPD, HOWARD, Gout & HTN was admitted for acute CHF exacerbation and JIM on CKD. She was treated w/ IV lasix with good response, urine output has been acceptable and patient has significant improvement clinically. She reports that her respiratory status is at baseline, evaluated by PT and was cleared for discharge home w/ home care. She currently denies any SOB, CP, N/V, cough, abdominal pain or diarrhea. Her JIM was due to cardiorenal syndrome and improved with appropriate diuresis, her renal function is now at baseline. Patient will be discharged home on Torsemide 50 mg BID & her MANDEEP-I will be restarted. She was not taking any potassium supplementation prior to admission and presented with significant hyperkalemia; I suspect her potassium to stay the same or go up slightly when she restarts her MANDEEP-I. Patient is advised to follow up outpatient with her Instructor Product Inspection, Medical Office Receptionist Assistant & PCP. She is clinically and hemodynamically stable for discharge home and outpatient follow up HOSPITAL COURSE: as above DISCHARGE MEDICATIONS: Please see below. ALLERGIES: Please see below. OBJECTIVE PHYSICAL EXAMINATION: VITAL SIGNS: Please see below. GENERAL: Obese HEENT: Normocephalic, atraumatic, moist mucous membranes CARDIOVASCULAR: S1, S2 RESPIRATORY: scattered rhonchi ABDOMINAL: soft, non-tender, non-distended, +BS EXTREMITIES: ROM intact NEUROLOGICAL: no focal deficits PSYCHOLOGICAL: calm and cooperative LABORATORY DATA: Please see below. PROGNOSIS: guarded ACTIVITY: As tolerated DIET: cardiac w/ 1500 cc fluid restriction DISCHARGE PLAN: follow up with Medical Office Receptionist Assistant, Instructor Product Inspection & PCP in 1-2 weeks DISPOSITION: home w/ homecare DISCHARGE INSTRUCTIONS: 1. as above DISCHARGE CONDITION: Stable TIME SPENT ON DISCHARGE: Greater than 33 minutes. Vital Signs/I&Os Vital Signs Date Time Temp Pulse Resp B/P (MAP) Pulse Ox O2 Delivery O2 Flow Rate FiO2 09/23/19 09:07 110/68 09/23/19 08:00 2.0 09/23/19 04:00 96.3 68 18 92 Nasal Cannula I&O- Last 24 Hours up to 6 AM 09/23/19 06:00 Intake Total 840 ml Output Total 2400 ml Balance -1560 ml Laboratory Data Labs 24H Laboratory Tests 2 09/22/19 20:12: Bedside Glucose (Misc Panel) 242H 09/23/19 05:05: Nucleated Red Blood Cells % (auto) 0.0, Anion Gap 7L, Glomerular Filtration Rate 35.5L, Calcium Level 9.7, Phosphorus Level 3.7, Magnesium Level 1.6L CBC/BMP Laboratory Tests 09/23/19 05:05 FSBS Laboratory Tests Test 09/22/19 20:12 Range/Units Bedside Glucose (Misc Panel) 242 83-110 MG/DL Microbiology Microbiology 09/21/19 Blood Culture - Preliminary, Resulted No Growth after 48 hours. All Specime... 09/21/19 Respiratory Virus Panel (PCR) (DANITA) - Final, Complete 09/21/19 Blood Culture - Preliminary, Resulted No Growth after 48 hours. All Specime... Discharge Medications Scheduled Allopurinol (Allopurinol) 100 Mg Tab, 100 MG PO DAILY, (Reported) Aspirin (Aspir 81) 81 Mg Tab, 81 MG PO DAILY, (Reported) Calcitriol (Rocaltrol) 0.25 Mcg Capsule, 0.5 MCG PO DAILY, (Reported) Diclofenac Sodium (Diclofenac Sodium) 1% 100GM Gel..gram., 1 GM TOP BID, (Reported) APPLY TO FEET Insulin Aspart (Novolog Flexpen) 100 Unit/1 Ml Insuln.pen, 8 UNITS SC BID, (Reported) WITH LUNCH AND DINNER Insulin Degludec (Tresiba Flextouch U-100) 100 Unit/Ml Inj, 80 UNIT SC DAILY, (Reported) Isosorbide Mononitrate (Isosorbide Mononitrate ER) 30 Mg Tab, 30 MG PO DAILY, (Reported) Lisinopril (Lisinopril) 20 Mg Tablet, 20 MG PO DAILY, (Reported) Magnesium Oxide (Magnesium Oxide) 400 Mg Tablet, 400 MG PO DAILY, (Reported) Pantoprazole Sodium (Pantoprazole Sodium) 20 Mg Tab, 20 MG PO DAILY, (Reported) Pregabalin (Lyrica) 75 Mg Capsule, 75 MG PO TID, (Reported) Ropinirole HCl (Requip) 0.25 Mg Tablet, 0.25 MG PO QHS Rosuvastatin Calcium (Crestor) 20 Mg Tab, 20 MG PO QHS, (Reported) Torsemide (Torsemide) 10 Mg Tablet, 50 MG PO BID, (Reported) Scheduled PRN Albuterol Sulfate (Albuterol Sulfate) 2.5 Mg/0.5 Ml Neb, 2.5 MG INH Q4H PRN for SHORTNESS OF BREATH, (Reported) Alprazolam (Alprazolam) 0.25 Mg Tablet, 0.25 MG PO DAILY PRN for ANXIETY, (Reported) Dicyclomine HCl (Dicyclomine HCl) 10 Mg Capsule, 10 MG PO TID PRN for ABDOMINAL PAIN, (Reported) Hydrocodone/Acetaminophen ([place] 10-325 Tablet) 1 Tab Tab, 1 TAB PO Q6H PRN for PAIN, (Reported) Nitroglycerin (Nitroglycerin) 0.4 Mg Sub, 0.4 MG SL NITRO PRN for CHEST PAIN, (Reported) Nystatin (Nystatin Powder) 100,000 Unit/Gm Pow, 1 DOSE TOP BID PRN for [place] SS/IRRITATION, (Reported) UNDER BREASTS AND GROIN AREA Simethicone (Simethicone) 180 Mg Capsule, 180 MG PO TID PRN for GAS PAIN, (Reported) Suvorexant (Belsomra) 20 Mg Tablet, 20 MG PO QHS PRN for SLEEP, (Reported) Zolpidem Tartrate (Ambien) 10 Mg Tab, 10 MG PO QHS PRN for SLEEP, (Reported) Allergies Coded Allergies: gabapentin (Verified Allergy, Severe, TROUBLE BREATHING AND HEADACHE, 08/17/19) lisinopril (Verified Allergy, Severe, 08/17/19) angioedema lip latex (Verified Allergy, Intermediate, RASH/ITCHING, 08/17/19) codeine (Verified Adverse Reaction, Mild, HEADACHE, 08/17/19) oxycodone (Verified Adverse Reaction, Mild, CONFUSION, 08/17/19) SCOTT NASSAR MD Sep 23, 2019 18:32
== END 2019-09-23 12:00 | disposition left against medical advice (07) | DRG 291 ==
LOC: EDBD 16:59 → M ED 16:59 → M ED INP 21:07 → M PCU 22:07
PROVIDERS: ADMIT Internal Medicine; ATTEND Internal Medicine
DX: I13.0 Hypertensive heart and chronic kidney disease with heart failure and stage 1 through stage 4 chronic kidney disease, or unspecified chronic kidney disease (principal); I50.33 Acute on chronic diastolic (congestive) heart failure; Z68.41 Body mass index [BMI] 40.0-44.9, adult; E87.1 Hypo-osmolality and hyponatremia; N17.9 Acute kidney failure, unspecified; I48.91 Unspecified atrial fibrillation; E66.01 Morbid (severe) obesity due to excess calories; J44.9 Chronic obstructive pulmonary disease, unspecified; E87.6 Hypokalemia; E11.40 Type 2 diabetes mellitus with diabetic neuropathy, unspecified; I25.10 Atherosclerotic heart disease of native coronary artery without angina pectoris; M10.9 Gout, unspecified; Z79.82 Long term (current) use of aspirin; Z79.899 Other long term (current) drug therapy; Z79.4 Long term (current) use of insulin; Z88.8 Allergy status to other drugs, medicaments and biological substances; I35.0 Nonrheumatic aortic (valve) stenosis; N18.9 Chronic kidney disease, unspecified; K21.9 Gastro-esophageal reflux disease without esophagitis; Z91.19 Patient's noncompliance with other medical treatment and regimen; G47.33 Obstructive sleep apnea (adult) (pediatric); Z91.040 Latex allergy status; Z88.5 Allergy status to narcotic agent

== ENCOUNTER 2019-11-16 12:28 | Inpatient (IN) | payer MEDICARE ==
[~2019-11-16] VITALS: Ht 154.9 cm; Wt 108.0 kg
[~2019-11-16 12:28] MED LIST changes: +REQU1TAB14 PO
[2019-11-16] MEDS ORDERED: GABA-1171 PO (12:48)
--- NOTE | 2019-11-16 13:30 | REP ---
Clinical: Cough and dyspnea. Technique: AP and cross-table lateral views of the chest. Comparison: 09/21/2019. Findings: Stable cardiomegaly. Evaluation is limited by underpenetration. No obvious focal consolidation, definite effusion, or pneumothorax. Underlying chronic changes and mild interstitial edema cannot be excluded. Impression: Stable cardiomegaly. Limited examination. No focal consolidation or effusion. Electronically Signed by Rommel Hogan MD 11/16/2019 01:21 P
[2019-11-16 13:40] LABS: BASO % 0.2 % (0.0-1.0); EOS # 0.3 10^3/uL (0.0-0.5); HEMATOCRIT 42.8 % (36.0-47.0); HEMOGLOBIN 12.3 g/dl (12.0-15.5); LYMPH # 1.6 10^3/uL (1.5-5.0); LYMPH % 18.8 % (24.0-44.0); MEAN CORPUSCULAR HEMOGLOBIN 26.2 pg (27.0-33.0); MEAN CORPUSCULAR HGB CONC 28.7 g/dl (32.0-36.5); MEAN CORPUSCULAR VOLUME 91.1 fl (80.0-96.0); MONO # 1.3 10^3/uL (0.0-0.8); MONO % 16.1 % (0.0-5.0); NEUTROPHILS # 5.1 10^3/uL (1.5-8.5); NEUTROPHILS % 61.5 % (36.0-66.0); PLATELET COUNT, AUTOMATED 149 10^3/uL (150-450); VENOUS BASE EXCESS 4.8 (-2.0-2.0); VENOUS HCO3 35.2 MEQ/L (23.0-27.0); VENOUS O2 SATURATION 80.4 % (60.0-80.0); VENOUS PARTIAL PRESSURE CO2 85.4 mmHg (38.0-50.0); VENOUS PARTIAL PRESSURE O2 46.3 mmHg (30.0-50.0); VENOUS PH 7.233 UNITS (7.330-7.430); VENOUS STANDARD HCO3 28.4 MEQ/L; VENOUS TOTAL CO2 37.8 MEQ/L (24.0-28.0); WHITE BLOOD COUNT 8.3 10^3/uL (4.0-10.0)
[2019-11-16 14:08] LABS: BLOOD UREA NITROGEN 58 MG/DL (7-18); CALCIUM LEVEL 8.9 MG/DL (8.8-10.2); CARBON DIOXIDE LEVEL 36 MEQ/L (21-32); CHLORIDE LEVEL 95 MEQ/L (98-107); CPK CREATINE PHOSPHOKINASE 231 U/L (26-192); CREATININE FOR GFR 2.46 MG/DL (0.55-1.30); GLOMERULAR FILTRATION RATE 20.2 (>39); GLUCOSE, FASTING 155 MG/DL (70-100); POTASSIUM SERUM 5.4 MEQ/L (3.5-5.1); SODIUM LEVEL 134 MEQ/L (136-145); TROPONIN I < 0.02 NG/ML (< 0.10)
[2019-11-16] MEDS ORDERED: IPRATROPIUM 0.5MG/ALBUTEROL 2.5MG INH SOL UD 3ML (DUONEB)(J7620) NEB PRN (15:45)
[2019-11-16] MEDS ORDERED: AMBI10TA PO (15:56)
[2019-11-16] MEDS ORDERED: LYRI75CA PO (15:56)
[2019-11-16] MEDS ORDERED: SUCR1TAB56 PO (15:56)
[2019-11-16] MEDS ORDERED: PANT40TA3 PO (15:56)
[2019-11-16] MEDS ORDERED: TORS20TA2 PO (15:57)
[2019-11-16] MEDS ORDERED: ASPIRIN 81 MG CHEW TABLET PO ONE (16:00)
[2019-11-16] MEDS ORDERED: FUROSEMIDE 40 MG/4 ML VIAL (J1940) IV ONE (16:00)
[2019-11-16 16:13] LABS: NT-PRO BNP 784 PG/ML (<450)
--- NOTE | 2019-11-16 16:14 | REP ---
Clinical: Trauma. Technique: Four views of the right hemithorax. Findings: Multiple views of the right hemithorax demonstrates no obvious acute rib fracture or pathology. Impression: No obvious or displaced rib fracture identified. Electronically Signed by Rommel Hogan MD 11/16/2019 04:06 P
[2019-11-16 16:56] LABS: INFLUENZA A AMPLIFICATION NEGATIVE (NEGATIVE); INFLUENZA B AMPLIFICATION NEGATIVE (NEGATIVE)
[2019-11-16] MEDS ORDERED: ACETAMINOPHEN TAB 650MG DOSE (2X325MG) PO PRN (17:30)
[2019-11-16] MEDS ORDERED: ALBUTEROL SULFATE 2.5 MG/0.5 ML INH NEB SOLN NEB PRN (17:30)
[2019-11-16] MEDS ORDERED: FUROSEMIDE 40 MG/4 ML VIAL (J1940) IV SCH (17:30)
[2019-11-16] MEDS ORDERED: DICYCLOMINE 10 MG CAP PO PRN (17:45)
[2019-11-16] MEDS ORDERED: NYSTATIN 100,000 UNITS/GM TOPICAL PWD 15 GM TOP PRN (17:45)
[2019-11-16] MEDS ORDERED: GLUCOSE 4 GM CHEW TABLET PO PRN (17:45)
[2019-11-16] MEDS ORDERED: GLUCAGON FOR INJ 1 MG VIAL (J1610) SC PRN (17:45)
[2019-11-16] MEDS ORDERED: DEXTROSE 50% 50 ML SYRINGE IV PRN (17:45)
[2019-11-16] MEDS ORDERED: NITROGLYCERIN 0.4 MG SUBL TABLET SL PRN (17:45)
[2019-11-16] MEDS ORDERED: NORCO, ANEXSIA 5/325MG TABLET (HYDROcodone/ACETAMINOPHEN) PO PRN (18:00)
[2019-11-16] MEDS ORDERED: HumaLOG INSULIN (NovoLOG) PER UNIT SC SCH ×2 (18:00→21:00)
[2019-11-16] MEDS ORDERED: methylPREDNISolone INJ 125 MG/2 ML VIAL (J2930) IV SCH (18:00)
--- NOTE | 2019-11-16 18:27 | HPEPDOC ---
General Date of Admission 11/16/2019 Date of Service: Nov 16, 2019 Attending Physician: JOSETTE JORGE MD Chief Complaint The patient is a 79-year-old female admitted with a reason for visit of Short Of Breath. Source: Patient Exam Limitations: Clinical conditions (somnolent, falling asleep during our conversation) Timing/Duration: Day(s) Severity: Severe Associated Symptoms: Shortness of breath History of Present Illness 79-year-old W with CAD s/p PCI, COPD on 2-3L at home, HOWARD not on CPAP, morbid obesity, CKD3, DM who presented to the [facility] emergency department via ambulance with complaint of worsening shortness of breath and mechanical fall at home where she lives alone. She reported worsening SOB over a few days and is worse with exertion. She otherwise denied any chest pain, palpitations, LOC or noted increased swelling in her legs that would be worse than her baseline mild swelling. She otherwise has not had any fevers, chills, or noted URI symptoms outside of her chronic cough with clear to white sputum, and reports compliance with all her medications with a health aide that helps organize her medications. In the ER the patient received a chest x-ray which demonstrated some mild interstitial edema, proBNP was 784 and Cr was elevated at 2.46. Due to the history of the mechanical fall she reported, she had chest R chest wall XR that was negative for fracture. She was give 40mg IV lasix and placed on 3L nasal canula with appropriate oxygenation. Additionally, she was hyperkalemic to 5.4. Hospitalist service was consulted for further evaluation and management of the patient and on my evaluation, I found her sleeping, somnolent and barely able to stay away throughout our conversation, a VBG had been done with initial labs that showed pH of 7.23 and CO2 of 86% without an ABG, and based on the severe so mnolence in a host with COPD I requested for her to be placed on BiPAP and she was placed on 21/05 with subsequent ABG showing 7.32/67/. I consulted Dr. Brooks who suggested continuing the BiPAP for at least a few more hours as we start diuresis and admit to the ICU. Home Medications Scheduled Allopurinol (Allopurinol) 100 Mg Tab, 100 MG PO DAILY, (Reported) Aspirin (Aspir 81) 81 Mg Tab, 81 MG PO DAILY, (Reported) Calcitriol (Rocaltrol) 0.25 Mcg Capsule, 0.5 MCG PO DAILY, (Reported) Diclofenac Sodium (Diclofenac Sodium) 1% 100GM Gel..gram., 1 GM TOP BID, (Reported) APPLY TO FEET Gabapentin (Gabapentin) 100 Mg Capsule, 200 MG PO TID, (Reported) Insulin Aspart (Novolog Flexpen) 100 Unit/1 Ml Insuln.pen, 8 UNITS SC BID, (Reported) WITH LUNCH AND DINNER Insulin Degludec (Tresiba Flextouch U-100) 100 Unit/Ml Inj, 80 UNIT SC DAILY, (R eported) Isosorbide Mononitrate (Isosorbide Mononitrate ER) 30 Mg Tab, 30 MG PO DAILY, (Reported) Lisinopril (Lisinopril) 20 Mg Tablet, 20 MG PO DAILY, (Reported) Magnesium Oxide (Magnesium Oxide) 400 Mg Tablet, 400 MG PO DAILY, (Reported) Pantoprazole Sodium (Pantoprazole Sodium) 40 Mg Tablet.dr, 40 MG PO DAILY, (Reported) Pregabalin (Lyrica) 75 Mg Capsule, 75 MG PO TID, (Reported) Rosuvastatin Calcium (Crestor) 20 Mg Tab, 20 MG PO QHS, (Reported) Sucralfate (Sucralfate) 1 Gm Tablet, 1 GM PO ACHS, (Reported) Torsemide (Torsemide) 20 Mg Tablet, 50 MG PO DAILY, (Reported) Zolpidem Tartrate (Ambien) 10 Mg Tablet, 10 MG PO QHS, (Reported) Scheduled PRN Albuterol Sulfate (Albuterol Sulfate) 2.5 Mg/0.5 Ml Neb, 2.5 MG INH Q4H PRN for SHORTNESS OF BREATH, (Reported) Alprazolam (Alprazolam) 0.25 Mg Tablet, 0.25 MG PO DAILY PRN for ANXIETY, (Reported) Dicyclomine HCl (Dicyclomine HCl) 10 Mg Capsule, 10 MG PO TID PRN for ABDOMINAL PAIN, (Reported) Hydrocodone/Acetaminophen ([place] 10-325 Tablet) 1 Tab Tab, 1 TAB PO Q6H PRN for PAIN, (Reported) Nitroglycerin (Nitroglycerin) 0.4 Mg Sub, 0.4 MG SL NITRO PRN for CHEST PAIN, (Reported) Nystatin (Nystatin Powder) 100,000 Unit/Gm Pow, 1 DOSE TOP BID PRN for REDNESS/IRRITATION, (Reported) UNDER BREASTS AND GROIN AREA Allergies Coded Allergies: gabapentin (Verified Allergy, Severe, TROUBLE BREATHING AND HEADACHE, 11/16/19) lisinopril (Verified Allergy, Severe, angioedema lip, 11/16/19) angioedema lip latex (Verified Allergy, Intermediate, RASH/ITCHING, 11/16/19) codeine (Verified Adverse Reaction, Mild, HEADACHE, 11/16/19) oxycodone (Verified Adverse Reaction, Mild, CONFUSION, 11/16/19) Past Medical History Medical History 1. Coronary disease, status post per cutaneous intervention January 2002 with 30% occlusion of the right coronary artery. 2. Grade 2. Chronic diastolic congestive heart failure. 3. Aortic sclerosis without stenosis. 4. Atrial fibrillation 5. Insulin-dependent diabetes mellitus with neuropathy. 6. Hypertension 7. Chronic kidney disease 8. Gastroesophageal reflux disease, on chronic proton pump inhibitor 9. COPD 10. Morbid obesity 11. smoker Surgical History 1. 4. 2. Total hysterectomy. 3. Abdominal hernia repair 4. Bilateral knee surgeries 5. Right carpal tunnel release 6. Right rotator cuff repair Family History Significant Family History: Diabetes, Heart disease Social History * Smoker: current smoker Alcohol: Denies Drugs: denies Recent Travel/Sick Contacts: Denies: Recent travel, Recent sick contacts Psychosocial History: Anxiety She currently lives at home alone, however, has a home health aide who comes and helps her with her medications A-FIB/CHADSVASC A-FIB History Current/History of A-Fib/PAF?: No Current PO Anticoag Therapy: No Age/Risk Factor Scoring CHADSVASC: CHADSVASC Response (Comments) Value Age Risk Factor Age >/= 75 years old 2 Gender Risk Factor Female 1 Hx of CHF Yes 1 Hx of HTN Yes 1 Hx of Stroke/TIA/or VTE No 0 Hx of Diabetes Yes 1 Hx of Vascular Disease Yes 1 Total 7 Treatment Treatment ordered: NONE Reason Anticoagulant not given: Not indicated/[id number] Review of Systems Constitutional: Denies: Chills, Fever, Night Sweats Eyes: Denies: Pain, Vision change ENT: Denies: Head Aches, Ear Pain, Dysphagia Skin: Denies: Rash, Lesions, Breakdown Pulmonary: Reports: Dyspnea, Cough Cardiovascular: Reports: Orthopnea, Paroxysmal Noc. Dyspnea, Edema; Denies: Chest Pain, Palpitations, Lt Headedness Gastrointestinal: Denies: Nausea, Vomiting, Abdominal Pain, Diarrhea Genitourinary: Denies: Dysuria, Frequency, Incontinence, Retention Hematologic: Denies: Bruising, Bleeding Excessively Endocrine: Denies: Polydipsia, Polyphagia, Polyuria, Heat Intolerance, Cold Intolerance, Other Endocrine Sx Musculoskeletal: Denies: Neck Pain, Back Pain, Joint Pain, Muscle Pain, Spasms Neurological: Reports: Weakness; Denies: Numbness, Change in speech, Confusion Psych: Reports: Mood Normal; Denies: Depression, Memory Issues Physical Examination General Exam: Positive: Alert, No Acute Distress, Other (morbidly obese) Eye Exam: Positive: PERRLA, Conjunctiva & lids normal, EOMI; Negative: Sclera icteric ENT Exam: Positive: Atraumatic, Mucous membr. moist/pink, Pharynx Normal Neck Exam: Positive: Supple, Other (thick with large tongue and could not adequately view posterior oropharynx); Negative: JVD, thyromegaly Chest Exam: Positive: Normal air movement, Rales, Wheezing, Diminished (bases bilaterally); Negative: Clear to auscultation Heart Exam: Positive: Rate Normal, Regular Rhythm, Normal S1, Normal S2; Negative: Murmurs, Rubs Telemetry: Positive: No significant arrhythmia Abdomen Exam: Positive: Normal bowel sounds, Soft, Other (obese); Negative: Tenderness, Hepatospenomegaly Extremity Exam: Positive: Edema (dependent LE edema bilaterally 2+ with chronic skin hyperpigmentation changes), Other (WWP); Negative: Tenderness Skin Exam: Positive: Nl turgor and temperature, Other skin issue (chronic skin hyperpigmentation changes); Negative: Breakdown, Lesion Neuro Exam: Positive: Normal Speech, Strength at 5/5 X4 ext, Cranial Nerves 3- 12 NL Psych Exam: Positive: Mental status NL, Memory Intact, Oriented x 3 Vital Signs Vital Signs Date Time Temp Pulse Resp B/P (MAP) Pulse Ox O2 Delivery O2 Flow Rate FiO2 11/16/19 16:30 65 109/63 (78) 93 11/16/19 13:18 96.2 2/11/20 13:10 Nasal Cannula 3.0 11/16/19 12:44 20 Laboratory Data Labs 24H Laboratory Tests 2 11/16/19 13:32: Immature Granulocyte % (Auto) 0.4, Neutrophils (%) (Auto) 61.5, Lymphocytes (%) (Auto) 18.8L, Monocytes (%) (Auto) 16.1H, Eosinophils (%) (Auto) 3.0, Basophils (%) (Auto) 0.2, Neutrophils # (Auto) 5.1, Lymphocytes # (Auto) 1.6, Monocytes # (Auto) 1.3H, Eosinophils # (Auto) 0.3, Basophils # (Auto) 0.0, Nucleated Red Blood Cells % (auto) 0.0, Blood Gas Bicarbonate Standard 28.4, Venous Blood pH 7.233L, Venous Blood Partial Pressure CO2 85.4H, Venous Blood Partial Pressure O2 46.3, Venous Blood Total Carbon Dioxide 37.8H, Venous Blood HCO3 35.2H, Venous Blood Oxygen Saturation 80.4H, Venous Blood Base Excess 4.8H, Anion Gap 3L, Glomerular Filtration Rate 20.2L, Calcium Level 8.9, Total Creatine Kinase 231H, Creatine Kinase MB 6.0H, Creatine Kinase MB Relative Index 2.60, Troponin I < 0.02, UE-Hun-E-Type Natriuretic Peptide 784H 11/16/19 16:18: Influenza Type A (RT-PCR) NEGATIVE, Influenza Type B (RT-PCR) NEGATIVE 11/16/19 17:24: POC pH (Misc Panel) 7.350, POC Base Excess (Misc Panel) 7.0H, POC Saturated Percent O2 (Misc) 91L, POC pO2 (Misc Panel) 67.0L, POC pCO2 (Misc Panel) 59.6H, POC HCO3 (Misc Panel) 32.9H, POC Total CO2 (Misc Panel) 35.0H CBC/BMP Laboratory Tests 11/16/19 13:32 Assessment/Plan 79-year-old W with CAD s/p PCI, COPD on 2-3L at home, HOWARD not on CPAP, morbid obesity, CKD3, DM who presented with worsening shortness of breath and found to be in decompensated heart failure with volume overload and pulmonary vascular congestion, as well as COPD exacerbation with possible hypercarbia with increased somnolence with wheezing on exam and increased work of breathing now placed on BiPAP and diuretics. PLAN: Acute on chronic diastolic congestive heart failure exacerbation -Chest x-ray vascular congestion, with elevated BNP of 784. -s/p 40 mg IV Lasix in the ED. However given she takes torsemide 50 daily at home will give 60 IV lasix BID, for goal net negative 2L/24h. Fluid restriction of 1500 mL. 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 -Holding lisinopril Hyponatremia: chronic, at recent baseline -Will monitor. Coronary artery disease -Continue with aspirin and/or nitroglycerin PRN -continue statin History of Atrial fibrillation: previously on eliquis but was taken off, unclear if there is a history of a bleeding event -Currently in Sinus rhythm, monitor on tele DM -Levemir 80 QAM to start tomorrow which I am confident she will be having a diet after BiPAP mask is off -For now is NPO, with FSBG Q6H, SSI Q6H and hypoglycemia protocol Hypertension -Continue with Imdur 30 mg -Hold lisinopril -Patient currently receiving lasix 60 BID. GERD -Continue home PPI Morbid Obesity -BMI of 40.7, definitely complicating care HOWARD -Patient has a history of HOWARD. She is noncompliant with CPAP DVT prophylaxis -Heparin SQ Plan / VTE VTE Prophylaxis Ordered?: Yes JOSETTE JORGE MD Nov 16, 2019 18:26
--- NOTE | 2019-11-16 20:06 | ECGEPIP ---
[facility] - ED Test Date: 2019-11-16 Pat Name: BRIGID JAEGER Department: Room: - Gender: Female Ward Supervisor: MANUEL : 1940 Requested By: JOHANNY Hector Order Number: [id number] Reading MD: Saranya Mcpherson Measurements Intervals [place] Rate: 64 P: -34 [place]: 187 QRS: 46 QRSD: 80 T: 120 QT: 399 QTc: 414 Interpretive Statements SINUS RHYTHM ABNORMAL QRS-T ANGLE NSTTW abnormalities SIMILAR 09/23/19 Electronically Signed on 11-16-2019 20:06:21 EST by Saranya Mcpherson
[2019-11-16 20:20] VITALS: BP 154/70
[2019-11-16] MEDS ORDERED: ROSUVASTATIN 10 MG TAB (CRESTOR) PO SCH (21:00)
[2019-11-16] MEDS: HEPARIN SOD (PORCINE) 5000 UNITS/ML VIAL (J1644 PER 1000UNITS) SC SCH (21:49)
[2019-11-16] MEDS: SUCRALFATE 1 GM TAB PO SCH (21:50)
[2019-11-16] MEDS: DICLOFENAC EPOLAMINE 1.3 % PATCH TOP SCH (21:56)
[2019-11-16 23:00] VITALS: BP 113/60
[2019-11-16] MEDS: NICOTINE 14 MG/24 HR TRANSDERMAL TD SCH (23:37)
[2019-11-16] MEDS: FUROSEMIDE 100 MG/10 ML VIAL (J1940) IV SCH (23:45)
[2019-11-16] MEDS ORDERED: ALPRAZolam 0.25 MG TAB PO PRN (23:59)
[2019-11-17] MEDS: methylPREDNISolone INJ 125 MG/2 ML VIAL (J2930) IV SCH ×3 (00:07→16:45)
[2019-11-17 03:42] VITALS: BP 156/62
[2019-11-17 04:17] LABS: ABG BASE EXCESS 4.3 (-2.0-2.0); ABG HCO3 32.3 MEQ/L (22.0-26.0); ABG O2 SATURATION 93.1 % (95.0-99.0); ABG PARTIAL PRESSURE O2 68.1 mmHg (75.0-100.0); ABG STANDARD HCO3 28.2 MEQ/L (22.0-26.0); ABG TOTAL CO2 34.2 MEQ/L (23.0-31.0); ABG pH (ARTERIAL) 7.319 UNITS (7.350-7.450)
[2019-11-17 04:29] LABS: ABG PARTIAL PRESSURE CO2 64.2 mmHg (35.0-45.0)
[2019-11-17] MEDS: HEPARIN SOD (PORCINE) 5000 UNITS/ML VIAL (J1644 PER 1000UNITS) SC SCH (05:56)
[2019-11-17 06:00] VITALS: BP 155/66
[2019-11-17 06:29] LABS: HEMOGLOBIN 12.3 g/dl (12.0-15.5); MEAN CORPUSCULAR HEMOGLOBIN 26.1 pg (27.0-33.0); MEAN CORPUSCULAR HGB CONC 29.3 g/dl (32.0-36.5); MEAN CORPUSCULAR VOLUME 89.2 fl (80.0-96.0); PLATELET COUNT, AUTOMATED 144 10^3/uL (150-450); RED BLOOD COUNT 4.71 10^6/uL (4.00-5.40); WHITE BLOOD COUNT 6.6 10^3/uL (4.0-10.0)
[2019-11-17 06:56] LABS: CALCIUM LEVEL 9.7 MG/DL (8.8-10.2); CREATININE FOR GFR 2.24 MG/DL (0.55-1.30); GLOMERULAR FILTRATION RATE 22.5 (>39); MAGNESIUM LEVEL 2.1 MG/DL (1.8-2.4); POTASSIUM SERUM 5.3 MEQ/L (3.5-5.1)
[2019-11-17] MEDS: SUCRALFATE 1 GM TAB PO SCH ×2 (07:30→12:39)
[2019-11-17] MEDS: IPRATROPIUM 0.5MG/ALBUTEROL 2.5MG INH SOL UD 3ML (DUONEB)(J7620) NEB SCH ×3 (08:00→15:39)
[2019-11-17] MEDS: HumaLOG INSULIN (NovoLOG) PER UNIT SC SCH ×2 (08:53→12:40)
[2019-11-17] MEDS ORDERED: allopurinoL 100 MG TAB PO SCH (09:00)
[2019-11-17] MEDS ORDERED: MAGNESIUM OXIDE 400 MG TAB (MAG-OX) PO SCH (09:00)
[2019-11-17] MEDS ORDERED: ISOSORBIDE MON. (IMDUR) 30 MG XR TAB PO SCH (09:00)
[2019-11-17] MEDS ORDERED: ASPIRIN 81 MG ENTERIC TAB PO SCH (09:00)
[2019-11-17] MEDS ORDERED: PANTOPRAZOLE 40MG INJ (PROTONIX) (C9113) IV SCH (09:00)
[2019-11-17] MEDS ORDERED: LEVEMIR (INSULIN DETEMIR) 1 UNITS/0.01ML SC SCH (09:00)
[2019-11-17] MEDS ORDERED: CALCITRIOL 0.25 MCG CAP (S0169) PO SCH (09:00)
[2019-11-17 11:49] VITALS: BP 169/64
[2019-11-17] MEDS: FUROSEMIDE 100 MG/10 ML VIAL (J1940) IV SCH (11:51)
[2019-11-17] MEDS: NICOTINE 14 MG/24 HR TRANSDERMAL TD SCH (11:52)
[2019-11-17] MEDS: DICLOFENAC EPOLAMINE 1.3 % PATCH TOP SCH (11:52)
--- NOTE | 2019-11-17 13:06 | IPN ---
DATE: 11/17/2019 NOTE: I have been asked by Dr. Morales to evaluate Ms. Cata Falcon for noninvasive mechanical ventilation settings. Ms. Falcon is a 79-year-old female with a past medical history of chronic obstructive pulmonary disease (COPD) and congestive heart failure (CHF) who was admitted this time for CHF exacerbation. She was diuresed in the emergency department. When I was contacted it was because of acute on chronic hypercapnic respiratory failure. However, that was on a VVG. A repeat arterial blood gas (ABG) done later in the afternoon was acceptable at 7.35/60/67. She had been, I believe, already started on noninvasive mechanical ventilation before that gas was done but I am not certain that she was on it long enough for it to significantly alter her blood chemistries. Nonetheless, I thought it was reasonable to stay on it as a left ventricular assist device. I entered intermittent mechanical ventilation (IMV) settings, but before I could even see the patient, the patient had refused to wear the device. I then asked for an arterial blood gas a couple hours later and she refused that too. In fact, she was moved to the floor as we were consulted as the intensive care service for noninvasive mechanical ventilation therapy and she is not on that device nor was she ever on the device we consider her consultation complete.
[2019-11-17 14:00] VITALS: BP 164/68
[2019-11-17] MEDS ORDERED: PRED20TA PO (16:27)
--- NOTE | 2019-11-17 16:51 | DS.PDOC ---
Discharge Summary General Date of Admission Nov 16, 2019 at 17:21 Date of Discharge 11/17/2019 Attending Physician: JOSETTE JORGE MD Discharge Summary PROCEDURES PERFORMED DURING STAY: None ADMITTING DIAGNOSES: 1. COPD exacerbation 2. acute on chronic diastolic congestive heart failure 3. Acute on chronic hypoxemic respiratory failure on home 2L DISCHARGE DIAGNOSES: 1. COPD exacerbation 2. acute on chronic diastolic congestive heart failure 3. Coronary disease, status post per cutaneous intervention January 2002 with 30% occlusion of the right coronary artery. 4. Aortic sclerosis without stenosis. 5. Atrial fibrillation 6. Insulin-dependent diabetes mellitus with neuropathy. 7. Chronic hypertension 8. Chronic kidney disease 9. Gastroesophageal reflux disease, on chronic proton pump inhibitor 10. Morbid obesity 11. Active smoker COMPLICATIONS/CHIEF COMPLAINT: Chf;Copd;Hypoxia;Renal Failure. HISTORY OF PRESENT ILLNESS: 79-year-old W with CAD s/p PCI, COPD on 2-3L at home, HOWARD not on CPAP, morbid obesity, CKD3, DM who presented to the [facility] emergency department via ambulance with complaint of worsening shortness of breath and mechanical fall at home where she lives alone. HOSPITAL COURSE: She reported worsening SOB over a few days and is worse with exertion. She otherwise denied any chest pain, palpitations, LOC or noted increased swelling in her legs that would be worse than her baseline mild swelling. She otherwise has not had any fevers, chills, or noted URI symptoms outside of her chronic cough with clear to white sputum, and reports compliance with all her medications with a health aide that helps organize her medications. In the ER the patient received a chest x-ray which demonstrated some mild interstitial edema, proBNP was 784 and Cr was elevated at 2.46. Due to the history of the mechanical fall she reported, she had chest R chest wall XR that was negative for fracture. She was give 40mg IV lasix and placed on 3L nasal canula with appropriate oxygenation. Additionally, she was hyperkalemic to 5.4. Hospitalist service was consulted for further evaluation and management of the patient and on my evaluation, I found her sleeping, somnolent and barely able to stay away throughout our conversation, a VBG had been done with initial labs that showed pH of 7.23 and CO2 of 86% without an ABG, and based on the severe somnolence in a host with COPD I requested for her to be placed on BiPAP and she was placed on 21/05 with subsequent ABG showing 7.32/67/91. I consulted pulmonology who suggested continuing the BiPAP for at least a few more hours as we start diuresis and admit to the ICU. She did well overnight and was downgraded from BiPAP back to her home 2L and to the general floor. At this time, I had started IV diuretics and IV solumedrol. By this morning, she was doing very well, walked and did stairs with PT without difficulty and is looking forward to going home. I will restart her home torsemide at her baseline dose, and will prescribe 5 days of prednisone 40mg for an acute COPD exacerbation. She has home health services 6 days of the week and family is in the room to take her home. DISCHARGE MEDICATIONS: Please see below. ALLERGIES: Please see below. PHYSICAL EXAMINATION ON DISCHARGE: VITAL SIGNS: Please see below. General Exam: Alert, No Acute Distress, morbidly obese Eye Exam: PERRLA, EOMI, anicteric ENT Exam: Atraumatic, MMM Neck Exam: Supple, thick, difficult to assess for JVD Chest Exam: Normal air movement, no wheezing, trace bibasilar crackles Heart Exam: RRR, no mrg Abdomen Exam: Normal bowel sounds, Soft, obese, non tender Extremity Exam: dependent LE edema bilaterally 1+ with chronic skin hyperpigmentation changes, otherwise WWP Skin Exam: Nl turgor and temperature, chronic skin hyperpigmentation changes on LE Neuro Exam: Normal Speech, Strength at 5/5 X4 ext, Cranial Nerves 3-12 NL Psych Exam: Mental status NL, Memory Intact, Oriented x 3 LABORATORY DATA: Please see below. IMAGING: CXR: Stable cardiomegaly. Evaluation is limited by underpenetration. No obvious focal consolidation, definite effusion, or pneumothorax. Underlying chronic changes and mild interstitial edema cannot be excluded. Right sided Rib XR: no fracture PROGNOSIS: Fair, high risk for readmission for COPD exacerbation with ongoing smoking ACTIVITY: As tolerated DIET: consistent carb, 2g salt DISCHARGE PLAN: Home with home services DISPOSITION: Home with services DISCHARGE INSTRUCTIONS: 1. Please resume all your medications and in addition, I have prescribed you 5 days of 40mg of prednisone daily. ITEMS TO FOLLOWUP ON ON OUTPATIENT: 1. COPD 2. diastolic heart failure DISCHARGE CONDITION: Stable TIME SPENT ON DISCHARGE: 55 minutes. Vital Signs/I&Os Vital Signs Date Time Temp Pulse Resp B/P (MAP) Pulse Ox O2 Delivery O2 Flow Rate FiO2 11/17/19 14:00 98.7 71 19 164/68 (100) 90 Nasal Cannula 2.0 I&O- Last 24 Hours up to 6 AM 11/17/19 06:00 Intake Total 300 ml Output Total 600 ml Balance -300 ml Laboratory Data Labs 24H Laboratory Tests 2 11/16/19 17:24: POC pH (Misc Panel) 7.350, POC Base Excess (Misc Panel) 7.0H, POC Saturated Percent O2 (Misc) 91L, POC pO2 (Misc Panel) 67.0L, POC pCO2 (Misc Panel) 59.6H, POC HCO3 (Misc Panel) 32.9H, POC Total CO2 (Misc Panel) 35.0H 11/16/19 21:42: Bedside Glucose (Misc Panel) 86 11/16/19 23:21: Bedside Glucose (Misc Panel) 96 11/17/19 03:57: Blood Gas Bicarbonate Standard 28.2H, Arterial Blood pH 7.319L, Arterial Blood Partial Pressure CO2 64.2*H, Arterial Blood Partial Pressure O2 68.1L, Arterial Blood Total CO2 34.2H, Arterial Blood HCO3 32.3H, Arterial Blood Base Excess 4.3H, Arterial Blood Oxygen Saturation 93.1L 11/17/19 05:50: Nucleated Red Blood Cells % (auto) 0.0, Anion Gap 5L, Glomerular Filtration Rate 22.5L, Calcium Level 9.7, Magnesium Level 2.1 11/17/19 12:17: Bedside Glucose (Misc Panel) 356H CBC/BMP Laboratory Tests 11/17/19 05:50 FSBS Laboratory Tests Test 11/16/19 21:42 11/16/19 23:21 11/17/19 12:17 Range/Units Bedside Glucose (Misc Panel) 86 96 356 83-110 MG/DL Discharge Medications Scheduled Allopurinol (Allopurinol) 100 Mg Tab, 100 MG PO DAILY, (Reported) Aspirin (Aspir 81) 81 Mg Tab, 81 MG PO DAILY, (Reported) Calcitriol (Rocaltrol) 0.25 Mcg Capsule, 0.5 MCG PO DAILY, (Reported) Diclofenac Sodium (Diclofenac Sodium) 1% 100GM Gel..gram., 1 GM TOP BID, (Reported) APPLY TO FEET Gabapentin (Gabapentin) 100 Mg Capsule, 200 MG PO TID, (Reported) Insulin Aspart (Novolog Flexpen) 100 Unit/1 Ml Insuln.pen, 8 UNITS SC BID, (Reported) WITH LUNCH AND DINNER Insulin Degludec (Tresiba Flextouch U-100) 100 Unit/Ml Inj, 80 UNIT SC DAILY, (Reported) Isosorbide Mononitrate (Isosorbide Mononitrate ER) 30 Mg Tab, 30 MG PO DAILY, (Reported) Lisinopril (Lisinopril) 20 Mg Tablet, 20 MG PO DAILY, (Reported) Magnesium Oxide (Magnesium Oxide) 400 Mg Tablet, 400 MG PO DAILY, (Reported) Pantoprazole Sodium (Pantoprazole Sodium) 40 Mg Tablet.dr, 40 MG PO DAILY, (Reported) Prednisone (Prednisone) 20 Mg Tablet, 40 MG PO DAILY Pregabalin (Lyrica) 75 Mg Capsule, 75 MG PO TID, (Reported) Rosuvastatin Calcium (Crestor) 20 Mg Tab, 20 MG PO QHS, (Reported) Sucralfate (Sucralfate) 1 Gm Tablet, 1 GM PO ACHS, (Reported) Torsemide (Torsemide) 20 Mg Tablet, 50 MG PO DAILY, (Reported) Zolpidem Tartrate (Ambien) 10 Mg Tablet, 10 MG PO QHS, (Reported) Scheduled PRN Albuterol Sulfate (Albuterol Sulfate) 2.5 Mg/0.5 Ml Neb, 2.5 MG INH Q4H PRN for SHORTNESS OF BREATH, (Reported) Alprazolam (Alprazolam) 0.25 Mg Tablet, 0.25 MG PO DAILY PRN for ANXIETY, (Reported) Dicyclomine HCl (Dicyclomine HCl) 10 Mg Capsule, 10 MG PO TID PRN for ABDOMINAL PAIN, (Reported) Hydrocodone/Acetaminophen ([place] 10-325 Tablet) 1 Tab Tab, 1 TAB PO Q6H PRN for PAIN, (Reported) Nitroglycerin (Nitroglycerin) 0.4 Mg Sub, 0.4 MG SL NITRO PRN for CHEST PAIN, (Reported) Nystatin (Nystatin Powder) 100,000 Unit/Gm Pow, 1 DOSE TOP BID PRN for REDNESS/IRRITATION, (Reported) UNDER BREASTS AND GROIN AREA Allergies Coded Allergies: gabapentin (Verified Allergy, Severe, TROUBLE BREATHING AND HEADACHE, 11/16/19) lisinopril (Verified Allergy, Severe, angioedema lip, 11/16/19) angioedema lip latex (Verified Allergy, Intermediate, RASH/ITCHING, 11/16/19) codeine (Verified Adverse Reaction, Mild, HEADACHE, 11/16/19) oxycodone (Verified Adverse Reaction, Mild, CONFUSION, 11/16/19) JOSETTE JORGE MD Nov 17, 2019 16:51
== END 2019-11-17 17:19 | disposition home or self-care (01) | DRG 291 ==
LOC: M ED 12:28 → EDBD 12:28 → M ED INP 17:21 → ENRESERV 17:54 → M ICU 20:08 → M MSPAV 23:00
PROVIDERS: ADMIT Internal Medicine; ATTEND Internal Medicine
DX: I13.0 Hypertensive heart and chronic kidney disease with heart failure and stage 1 through stage 4 chronic kidney disease, or unspecified chronic kidney disease (principal); I50.33 Acute on chronic diastolic (congestive) heart failure; N17.9 Acute kidney failure, unspecified; J44.1 Chronic obstructive pulmonary disease with (acute) exacerbation; Z68.42 Body mass index [BMI] 45.0-49.9, adult; J96.10 Chronic respiratory failure, unspecified whether with hypoxia or hypercapnia; I48.20 Chronic atrial fibrillation, unspecified; E87.1 Hypo-osmolality and hyponatremia; E66.01 Morbid (severe) obesity due to excess calories; E11.40 Type 2 diabetes mellitus with diabetic neuropathy, unspecified; I25.10 Atherosclerotic heart disease of native coronary artery without angina pectoris; I35.0 Nonrheumatic aortic (valve) stenosis; N18.3 Chronic kidney disease, stage 3 (moderate); K21.9 Gastro-esophageal reflux disease without esophagitis; F17.200 Nicotine dependence, unspecified, uncomplicated; G47.33 Obstructive sleep apnea (adult) (pediatric); Z79.4 Long term (current) use of insulin; Z79.899 Other long term (current) drug therapy; Z79.82 Long term (current) use of aspirin; Z88.5 Allergy status to narcotic agent; Z91.040 Latex allergy status; Z88.8 Allergy status to other drugs, medicaments and biological substances; E87.5 Hyperkalemia

== ENCOUNTER 2019-12-06 01:33 | Inpatient (IN) | payer MEDICARE ==
[~2019-12-06] VITALS: Ht 152.4 cm; Wt 113.4 kg
[~2019-12-06 01:33] MED LIST changes: +PANT40TA3 PO; +SUCR1TAB56 PO
[2019-12-06 01:55] LABS: BASO % 0.1 % (0.0-1.0); EOS # 0.1 10^3/uL (0.0-0.5); EOS % 1.1 % (0.0-3.0); HEMATOCRIT 42.1 % (36.0-47.0); HEMOGLOBIN 12.2 g/dl (12.0-15.5); LYMPH # 1.5 10^3/uL (1.5-5.0); LYMPH % 16.9 % (24.0-44.0); MEAN CORPUSCULAR HEMOGLOBIN 26.2 pg (27.0-33.0); MEAN CORPUSCULAR VOLUME 90.3 fl (80.0-96.0); MONO # 1.5 10^3/uL (0.0-0.8); MONO % 16.8 % (0.0-5.0); NEUTROPHILS # 5.7 10^3/uL (1.5-8.5); NEUTROPHILS % 64.3 % (36.0-66.0); PLATELET COUNT, AUTOMATED 176 10^3/uL (150-450); RED BLOOD COUNT 4.66 10^6/uL (4.00-5.40); WHITE BLOOD COUNT 8.8 10^3/uL (4.0-10.0)
[2019-12-06] MEDS ORDERED: FUROSEMIDE 100 MG/10 ML VIAL (J1940) IV ONE (02:15)
[2019-12-06] MEDS ORDERED: dexameTHASONE 20 MG/5 ML VIAL (J1100) IV ONE (02:15)
[2019-12-06] MEDS ORDERED: IPRATROPIUM 0.5MG/ALBUTEROL 2.5MG INH SOL UD 3ML (DUONEB)(J7620) NEB ONE (02:15)
[2019-12-06 02:58] LABS: BLOOD UREA NITROGEN 47 MG/DL (7-18); CALCIUM LEVEL 8.7 MG/DL (8.8-10.2); CARBON DIOXIDE LEVEL 38 MEQ/L (21-32); CHLORIDE LEVEL 99 MEQ/L (98-107); CK-MB VALUE MASS 1.4 NG/ML (<3.6); CPK CREATINE PHOSPHOKINASE 140 U/L (26-192); CREATININE FOR GFR 2.05 MG/DL (0.55-1.30); GLOMERULAR FILTRATION RATE 24.9 (>39); GLUCOSE, FASTING 169 MG/DL (70-100); NT-PRO BNP 628 PG/ML (<450); POTASSIUM SERUM 5.5 MEQ/L (3.5-5.1); SODIUM LEVEL 140 MEQ/L (136-145); TROPONIN I < 0.02 NG/ML (< 0.10)
[2019-12-06 03:08] LABS: ABG BASE EXCESS 7.8 (-2.0-2.0); ABG O2 SATURATION 99.3 % (95.0-99.0); ABG PARTIAL PRESSURE O2 164.4 mmHg (75.0-100.0); ABG STANDARD HCO3 31.6 MEQ/L (22.0-26.0); ABG TOTAL CO2 38.3 MEQ/L (23.0-31.0); ABG pH (ARTERIAL) 7.311 UNITS (7.350-7.450)
[2019-12-06] MEDS ORDERED: MOM 30ML SUSPENSION UDC PO PRN (04:45)
[2019-12-06] MEDS ORDERED: ALBUTEROL SULFATE 2.5 MG/0.5 ML INH NEB SOLN NEB PRN (04:45)
[2019-12-06] MEDS ORDERED: MAALOX 30 ML SUSP *UDC PO PRN (04:45)
[2019-12-06] MEDS ORDERED: ACETAMINOPHEN TAB 650MG DOSE (2X325MG) PO PRN (04:45)
--- NOTE | 2019-12-06 04:49 | HPEPDOC ---
[facility] Medical History & Physical Date of Admission Dec 06, 2019 Date of Service: Dec 06, 2019 Attending Physician: NISHA YEPEZ MD History and Physical TME OF SERVICE: 5:45 a.m. CHIEF COMPLAINT: dyspnea HISTORY OF PRESENT ILLNESS: The majority of the history is obtained from the ER attending. The patient was too lethargic to answer my questions . According to the ER attending is a 73 old female who came to the hospital for evaluation because she was feeling short of breath and more sleepy than usual. At the time of my evaluation, the patient changed her story and stated that she came to the hospital because she fell and hit her head. Thereafter, she fell asleep and when she was aroused again. She states she came to the ER for a checkup. With more specific questioning questioning, she denied having chest pain, denied having fevers or chills, admitted feeling more sleepy, and admitted to having a cough . Despite receiving DuoNeb's, Lasix, and Decadron she he continues to be short of breath. REVIEW OF SYSTEMS: negative except as listed in HPI PAST MEDICAL/ SURGICAL HISTORY: COPD O2 dependent respiratory failure ( 2-3 L ) Grade 2 diastolic CHF IDDM with neuropathy HTN Aortic sclerosis without stenosis. Paroxysmal Atrial fibrillation ? She was previously on Elquis, but this was discontinued HOWARD, noncompliant with CPAP. Morbid obesity. CKD 3 GERD. Status post 4. Status post total hysterectomy. Status post abdominal hernia. Status post bilateral knee surgeries. Status post right carpal tunnel release. Status post right rotator cuff repair SOCIAL HISTORY: + tobacco FAMILY HISTORY: Diabetes CAD ALLERGIES: Please see below. HOME MEDICATIONS: Please see below. PHYSICAL EXAMINATION: Vital Signs Date Time Temp Pulse Resp B/P (MAP) Pulse Ox O2 Delivery O2 Flow Rate FiO2 12/06/19 01:49 96.9 74 20 185/74 (111) 96 Room Air 12/06/19 03:30 3.0 GEN: well nourished / well developed/ lethargic INTEGUMENT: She doesn't have facial plethora HEENT:NCAT / lips are not cyanotic / / NC in place / mucus membranes moist and pink / sclera anicteric CVS: RRR/trace lower extremity edema LUNGS: She is using accessory muscles / there is decreased respiratory expansion/ lungs are hyper resonant on percussion / there is and expiratory wheezing ABDOMEN: Abdomen is obese and soft NEURO: Unable to assess appropriately because the patient is falling asleep PSYCH: She is lethargic but intermittently arousable with vocal stimuli LABORATORY DATA: IMAGING: Chest x-ray shows congestion but the final read is pending MICROBIOLOGY: Please see below. ASSESSMENT: Ms. Falcon is an 79 old female the past medical history of COPD, oxygen- dependent respiratory failure, grade 2 diastolic dysfunction, IDDM, HTN, HOWARD, morbid obesity, and CKD 3 who is admitted for evaluation of acute hypercarbic respiratory failure possibly due to a combination of acute CHF and acute COPD. PLAN: 1. Acute Hypercarbic Respiratory Failure Possibly due to CHF and COPD Plan: Admit to PCU/supplemental oxygen /continuous pulse ox,/follow up repeat ABG 2. Encephalopathy, likely due to hypercarbia. Plan: Frequent neuro checks /treat dyspnea 3. Acute Diastolic CHF Chest xray showed congestion Plan:Is and OS and daily weights / low salt and fluid restricted diet / continue with Lasix 80mg IV BID hold home dose of torsemide / follow up final chest x-ray report 4. Acute COPD May be due to viral infection Based on ABG is retaining more CO2 than on the previous ABG done in November 17 Plan: continue with supplemental O2 / continuous pulse oximetry, she is a bit too lethargic for BiPAP/aspiration precautions / f/u ABG, d-dimer, respiratory panel, sputum cx / Dunebs Q6H, Albuterol Q4HP, Prednisone + PPI / will give Levofloxacin because the patient has a productive cough/ refer to [facility] for repeat PFTs and Pulmonary Rehab when ready for d/c 5. Hyperkalemia - Plan: f/u repeat potassium 6. IDDM with neuropathy - Plan: f/u accuchecks / hypoglycemia protocol / sliding scale insulin /detemir 50 units daily ( her home meds are Tresiba 80 units daily with aspart 8 units twice a day) / gabapentin 7. Chronic HTN - Plan: Lisinopril, 8. CKD 3 - Plan: monitor BMP 9. GERD - Plan: c/w PPI 10. Obesity with a BMI of 48.8, and coexisting diabetes and sleep apnea, complicated care DVT PROPHYLAXIS: Lovenox DISPOSITION: Likely home after more than 2 midnight's stay Home Medications Scheduled Allopurinol (Allopurinol) 100 Mg Tab, 100 MG PO DAILY Aspirin (Aspir 81) 81 Mg Tab, 81 MG PO DAILY Calcitriol (Rocaltrol) 0.25 Mcg Capsule, 0.5 MCG PO QAM Diclofenac Sodium (Diclofenac Sodium) 1% 100GM Gel..gram., 1 GM TOP BID APPLY TO FEET Gabapentin (Gabapentin) 100 Mg Capsule, 200 MG PO TID Insulin Aspart (Novolog Flexpen) 100 Unit/1 Ml Insuln.pen, 8 UNITS SC BID WITH LUNCH AND DINNER Insulin Degludec (Tresiba Flextouch U-100) 100 Unit/Ml Inj, 80 UNIT SC DAILY Isosorbide Mononitrate (Isosorbide Mononitrate ER) 30 Mg Tab, 30 MG PO DAILY Lisinopril (Lisinopril) 20 Mg Tablet, 20 MG PO DAILY Magnesium Oxide (Magnesium Oxide) 400 Mg Tablet, 400 MG PO DAILY Pantoprazole Sodium (Pantoprazole Sodium) 40 Mg Tablet.dr, 40 MG PO DAILY Pregabalin (Lyrica) 75 Mg Capsule, 75 MG PO TID Rosuvastatin Calcium (Crestor) 20 Mg Tab, 20 MG PO QHS Sucralfate (Sucralfate) 1 Gm Tablet, 1 GM PO ACHS Torsemide (Torsemide) 20 Mg Tablet, 50 MG PO DAILY Zolpidem Tartrate (Ambien) 10 Mg Tablet, 10 MG PO QHS Scheduled PRN Albuterol Sulfate (Albuterol Sulfate) 2.5 Mg/0.5 Ml Neb, 2.5 MG INH Q4H PRN for SHORTNESS OF BREATH Dicyclomine HCl (Dicyclomine HCl) 10 Mg Capsule, 10 MG PO TID PRN for ABDOMINAL PAIN Hydrocodone/Acetaminophen ([place] 10-325 Tablet) 1 Tab Tab, 1 TAB PO Q6H PRN for PAIN Nitroglycerin (Nitroglycerin) 0.4 Mg Sub, 0.4 MG SL NITRO PRN for CHEST PAIN Nystatin (Nystatin Powder) 100,000 Unit/Gm Pow, 1 DOSE TOP BID PRN for REDNESS/IRRITATION UNDER BREASTS AND GROIN AREA Miscellaneous Medications [Patient Comments] UNABLE TO KEEP PATIENT AWAKE TO DISCUSS MEDICATIONS. NO FAMILY OR ADULTS PRESENT AT THIS TIME. MEDICATION LIST IS OF ACTIVE MEDICATIONS AT HER PHARMACY. Allergies Coded Allergies: gabapentin (Verified Allergy, Severe, TROUBLE BREATHING AND HEADACHE, 12/06/19) lisinopril (Verified Allergy, Severe, angioedema lip, 12/06/19) angioedema lip latex (Verified Allergy, Intermediate, RASH/ITCHING, 12/06/19) codeine (Verified Adverse Reaction, Mild, HEADACHE, 12/06/19) oxycodone (Verified Adverse Reaction, Mild, CONFUSION, 12/06/19) A-FIB/CHADSVASC A-FIB History Current/History of A-Fib/PAF?: No Current PO Anticoag Therapy: No NISHA YEPEZ MD Dec 06, 2019 04:49
[2019-12-06] MEDS ORDERED: PATIENT COMMENTS (04:59)
[2019-12-06] MEDS ORDERED: GLUCAGON FOR INJ 1 MG VIAL (J1610) SC PRN (06:15)
[2019-12-06] MEDS ORDERED: DEXTROSE 50% 50 ML SYRINGE IV PRN (06:15)
[2019-12-06] MEDS ORDERED: GLUCOSE 4 GM CHEW TABLET PO PRN (06:15)
[2019-12-06 07:15] LABS: POTASSIUM SERUM 5.2 MEQ/L (3.5-5.1)
--- NOTE | 2019-12-06 07:27 | ECGEPIP ---
[facility] - ED Test Date: 2019-12-06 Pat Name: BRIGID JAEGER Department: Room: [place] [address] Gender: Female [place] Chief: ORESTES : 1940 Requested By: ARSLAN COYLE Order Number: [id number] Reading MD: Myles Mace Measurements Intervals [place] Rate: 76 P: 0 WI: 179 QRS: 48 QRSD: 75 T: 117 QT: 372 QTc: 420 Interpretive Statements SINUS RHYTHM NSTTW ABNORMALITIES SIMILAR TO 11/16/19 Electronically Signed on 12-06-2019 7:27:39 EST by Myles Mace
[2019-12-06] MEDS: IPRATROPIUM 0.5MG/ALBUTEROL 2.5MG INH SOL UD 3ML (DUONEB)(J7620) NEB SCH ×2 (08:00→13:57)
--- NOTE | 2019-12-06 08:09 | REP ---
Portable chest x-ray: Single view. History: Chest pain Comparison study: November 16, 2019. Findings: Monitoring electrodes are seen. Heart is moderately enlarged. Pleural angles are sharp. Pulmonary vasculature is not increased. There is no evidence of pleural effusion, infiltrate, or pulmonary edema. Impression: Cardiomegaly. Otherwise no acute disease. Electronically Signed by Dameon Norris MD 12/06/2019 08:01 A
[2019-12-06 08:10] VITALS: BP 138/92
[2019-12-06 08:24] LABS: ABG BASE EXCESS 6.8 (-2.0-2.0); ABG HCO3 35.4 MEQ/L (22.0-26.0); ABG O2 SATURATION 93.9 % (95.0-99.0); ABG STANDARD HCO3 30.6 MEQ/L (22.0-26.0); ABG TOTAL CO2 37.5 MEQ/L (23.0-31.0); ABG pH (ARTERIAL) 7.319 UNITS (7.350-7.450)
[2019-12-06 08:31] LABS: ABG PARTIAL PRESSURE CO2 70.4 mmHg (35.0-45.0)
[2019-12-06 08:43] LABS: CALCIUM LEVEL 8.9 MG/DL (8.8-10.2); CREATININE FOR GFR 1.97 MG/DL (0.55-1.30); GLOMERULAR FILTRATION RATE 26.1 (>39)
[2019-12-06] MEDS: HumaLOG INSULIN (NovoLOG) PER UNIT SC SCH ×2 (08:45→13:49)
[2019-12-06] MEDS ORDERED: ASPIRIN 81 MG ENTERIC TAB PO SCH (09:00)
[2019-12-06] MEDS ORDERED: DOCUSATE SODIUM 100 MG CAP PO SCH (09:00)
[2019-12-06] MEDS ORDERED: GABAPENTIN 100 MG CAP PO SCH (09:00)
[2019-12-06] MEDS ORDERED: predniSONE 20 MG TAB PO SCH (09:00)
[2019-12-06] MEDS ORDERED: ENOXAPARIN 30 MG/0.3 ML SYR (J1650) SC SCH (09:00)
[2019-12-06] MEDS ORDERED: LEVEMIR (INSULIN DETEMIR) 1 UNITS/0.01ML SC SCH (09:00)
[2019-12-06] MEDS ORDERED: PANTOPRAZOLE 40MG TAB (PROTONIX) PO SCH (09:00)
[2019-12-06] MEDS ORDERED: CALCITRIOL 0.25 MCG CAP (S0169) PO SCH (09:00)
[2019-12-06] MEDS ORDERED: FUROSEMIDE 100 MG/10 ML VIAL (J1940) IV SCH (09:00)
[2019-12-06] MEDS ORDERED: allopurinoL 100 MG TAB PO SCH (09:00)
[2019-12-06] MEDS ORDERED: ETOMIDATE INJ 20MG/10ML VIAL ONE (10:31)
[2019-12-06] MEDS ORDERED: SUCCINYLCHOLINE 100 MG/5 ML SYRINGE (J0330) ONE (10:31)
[2019-12-06 11:47] VITALS: BP 175/79
--- NOTE | 2019-12-06 20:45 | IPNPDOC ---
Date Seen The patient was seen on 12/06/19. Progress Note Patient was admitted overnight for acute on chronic hypercapnic respiratory failure, BiPAP was recommended which patient refused. She was being monitored & treated in the ICU and elected to leave AMA late morning/early afternoon. Patient was evaluated in the morning, appeared close to her baseline, on NC, reported dyspnea, otherwise had no other complaints. Patient was A&O x3, showed ability to understand risks/benefits of her decision before leaving AMA. VS, I&O, 24H, [facility] Vital Signs/I&O Vital Signs Date Time Temp Pulse Resp B/P (MAP) Pulse Ox O2 Delivery O2 Flow Rate FiO2 12/06/19 12:00 3.0 12/06/19 11:47 97.3 77 22 175/79 (111) 92 Nasal Cannula Laboratory Data 24H LABS Laboratory Tests 2 12/06/19 01:44: Bedside Glucose (Misc Panel) 174H 12/06/19 01:49: Immature Granulocyte % (Auto) 0.8, Neutrophils (%) (Auto) 64.3, Lymphocytes (%) (Auto) 16.9L, Monocytes (%) (Auto) 16.8H, Eosinophils (%) (Auto) 1.1, Basophils (%) (Auto) 0.1, Neutrophils # (Auto) 5.7, Lymphocytes # (Auto) 1.5, Monocytes # (Auto) 1.5H, Eosinophils # (Auto) 0.1, Basophils # (Auto) 0.0, Nucleated Red Blood Cells % (auto) 0.0, Anion Gap 3L, Glomerular Filtration Rate 24.9L, Calcium Level 8.7L, Total Creatine Kinase 140, Creatine Kinase MB 1.4, Creatine Kinase MB Relative Index 1.00, Troponin I < 0.02, YB-Mzn-C-Type Natriuretic Peptide 628H 12/06/19 02:43: Blood Gas Bicarbonate Standard 31.6H, Arterial Blood pH 7.311L, Arterial Blood Partial Pressure CO2 73.0*H, Arterial Blood Partial Pressure O2 164.4H, Arterial Blood Total CO2 38.3H, Arterial Blood HCO3 36.0H, Arterial Blood Base Excess 7.8H, Arterial Blood Oxygen Saturation 99.3H 12/06/19 06:18: Bedside Glucose (Misc Panel) 162H 12/06/19 06:44: D-Dimer, Quantitative 1190.29H, Anion Gap 5L, Glomerular Filtration Rate 26.1L, Calcium Level 8.9 12/06/19 08:12: Blood Gas Bicarbonate Standard 30.6H, Arterial Blood pH 7.319L, Arterial Blood Partial Pressure CO2 70.4*H, Arterial Blood Partial Pressure O2 71.0L, Arterial Blood Total CO2 37.5H, Arterial Blood HCO3 35.4H, Arterial Blood Base Excess 6.8H, Arterial Blood Oxygen Saturation 93.9L 12/06/19 08:16: Bedside Glucose (Misc Panel) 210H 12/06/19 11:42: Bedside Glucose (Misc Panel) 219H CBC/BMP Laboratory Tests 12/06/19 01:49 12/06/19 06:44 Microbiology Microbiology 12/06/19 Respiratory Virus Panel (PCR) (DANITA) - Final, Complete 12/06/19 Blood Culture, Received Pending SCOTT NASSAR MD Dec 06, 2019 20:45
[2019-12-06] MEDS ORDERED: HumaLOG INSULIN (NovoLOG) PER UNIT SC SCH (21:00)
== END 2019-12-06 14:00 | disposition left against medical advice (07) | DRG 291 ==
LOC: M ED 01:33 → M ED INP 04:44 → ENRESERVTM 07:17 → ENRESERVDT 07:17 → M ICU 07:52
PROVIDERS: ADMIT Internal Medicine; ATTEND Internal Medicine
DX: I13.0 Hypertensive heart and chronic kidney disease with heart failure and stage 1 through stage 4 chronic kidney disease, or unspecified chronic kidney disease (principal); I50.33 Acute on chronic diastolic (congestive) heart failure; J96.02 Acute respiratory failure with hypercapnia; G93.40 Encephalopathy, unspecified; Z68.42 Body mass index [BMI] 45.0-49.9, adult; J44.1 Chronic obstructive pulmonary disease with (acute) exacerbation; E66.01 Morbid (severe) obesity due to excess calories; N18.3 Chronic kidney disease, stage 3 (moderate); Z99.81 Dependence on supplemental oxygen; I35.0 Nonrheumatic aortic (valve) stenosis; I48.0 Paroxysmal atrial fibrillation; G47.33 Obstructive sleep apnea (adult) (pediatric); Z79.01 Long term (current) use of anticoagulants; E11.40 Type 2 diabetes mellitus with diabetic neuropathy, unspecified; Z91.19 Patient's noncompliance with other medical treatment and regimen; K21.9 Gastro-esophageal reflux disease without esophagitis; E87.5 Hyperkalemia; Z79.82 Long term (current) use of aspirin; Z79.899 Other long term (current) drug therapy; Z79.4 Long term (current) use of insulin; Z88.5 Allergy status to narcotic agent; Z91.040 Latex allergy status; Z88.8 Allergy status to other drugs, medicaments and biological substances

== ENCOUNTER 2019-12-21 08:19 | Emergency (ER) | payer MEDICARE ==
[~2019-12-21] VITALS: Ht 152.4 cm; Wt 101.4 kg
[~2019-12-21 08:19] MED LIST changes: +PATIENT COMMENTS
[2019-12-21] MEDS ORDERED: NOVOINJ3 SC (08:47)
[2019-12-21] MEDS ORDERED: NYAM10003 EX (08:47)
[2019-12-21] MEDS ORDERED: XANA0.5T PO (08:47)
[2019-12-21] MEDS ORDERED: KETO2CR EXT (08:47)
[2019-12-21] MEDS ORDERED: CARA1TAB6 PO (08:47)
[2019-12-21] MEDS ORDERED: ACETAMINOPHEN TAB 650MG DOSE (2X325MG) PO ONE (09:15)
--- NOTE | 2019-12-21 09:22 | REP ---
Right ankle: Four views. History: Trauma. Findings: Four views of the right ankle demonstrate diffuse subcutaneous edema of the lower calf and about the anterolateral ankle. Ankle mortise is intact. No fractures seen. Impression: Diffuse soft tissue swelling/subcutaneous edema. No fracture seen. Electronically Signed by Dameon Norris MD 12/21/2019 09:13 A
--- NOTE | 2019-12-21 09:23 | REP ---
Right tib-fib series: Two views. History: Trauma. Findings: Two views of the right tibia and fibula demonstrate mild diffuse subcutaneous swelling. There is moderate osteoarthritis at the knee. No fracture or subluxation is seen. Impression: Knee osteoarthritis. Vascular calcification. Diffuse soft tissue swelling/edema pattern. No fracture seen. Electronically Signed by Dameon Norris MD 12/21/2019 09:15 A
--- NOTE | 2019-12-21 09:24 | REP ---
Right knee series: Four views. History: Trauma. Findings: Four views of the right knee demonstrate three compartment osteoarthritis. Vascular calcifications noted. No fracture, subluxation, or joint effusion is evident. Impression: No fracture seen. Three compartment osteoarthritis. Vascular calcification. Electronically Signed by Dameon Norris MD 12/21/2019 09:15 A
[2019-12-21 10:15] VITALS: BP 143/70
--- NOTE | 2019-12-21 10:18 | REP ---
PELVIS RIGHT HIP: Three views. HISTORY: Trauma. FINDINGS: AP view of the pelvis and AP and frog-leg views of the right hip are presented. Image quality is inhibited some degree by patient body habitus. No pelvic or hip fracture is seen. Femoral head is smooth and rounded. Bowel gas pattern is unremarkable. No sacral fracture is seen. Vascular calcification is noted. There appear to be vascular stents in place in the iliac arteries bilaterally. IMPRESSION: No fracture seen. Iliac arterial stents noted bilaterally. Electronically Signed by Dameon Norris MD 12/21/2019 10:56 A
== END 2019-12-21 11:40 | disposition home or self-care (01) ==
LOC: M ED 08:19
DX: S93.401A Sprain of unspecified ligament of right ankle, initial encounter (principal); X58.XXXA Exposure to other specified factors, initial encounter; Y92.099 Unspecified place in other non-institutional residence as the place of occurrence of the external cause; Y93.89 Activity, other specified; Y99.9 Unspecified external cause status; I25.10 Atherosclerotic heart disease of native coronary artery without angina pectoris; I50.9 Heart failure, unspecified; E11.9 Type 2 diabetes mellitus without complications; I10 Essential (primary) hypertension; J44.9 Chronic obstructive pulmonary disease, unspecified; G47.30 Sleep apnea, unspecified; F41.9 Anxiety disorder, unspecified; M54.9 Dorsalgia, unspecified; F17.200 Nicotine dependence, unspecified, uncomplicated; Z95.820 Peripheral vascular angioplasty status with implants and grafts; M17.11 Unilateral primary osteoarthritis, right knee; I70.201 Unspecified atherosclerosis of native arteries of extremities, right leg; Z79.82 Long term (current) use of aspirin; Z79.4 Long term (current) use of insulin; Z79.899 Other long term (current) drug therapy; Z88.5 Allergy status to narcotic agent; Z88.8 Allergy status to other drugs, medicaments and biological substances; Z91.040 Latex allergy status

== ENCOUNTER 2020-01-01 12:55 | Emergency (ER) | payer MEDICARE ==
[~2020-01-01] VITALS: Ht 154.9 cm; Wt 91.4 kg
[~2020-01-01 12:55] MED LIST changes: +CARA1TAB6 PO; +KETO2CR EXT; +NYAM10003 EX; +XANA0.5T PO
[2020-01-01 13:24] VITALS: BP 108/56
--- NOTE | 2020-01-01 13:52 | REP ---
Clinical: Pain. Technique: AP, lateral, bilateral oblique views of the right ankle. Findings: Age-related degenerative changes noted. Moderate soft tissue swelling is appreciated. No acute fracture dislocation. No foreign body. Impression: Moderate soft tissue swelling. No acute fracture or dislocation. Electronically Signed by Rommel Hogan MD 01/01/2020 01:43 P
== END 2020-01-01 14:04 | disposition home or self-care (01) ==
LOC: M ED 12:55
DX: S93.401A Sprain of unspecified ligament of right ankle, initial encounter (principal); R60.0 Localized edema; X58.XXXA Exposure to other specified factors, initial encounter; Y92.099 Unspecified place in other non-institutional residence as the place of occurrence of the external cause; Y93.9 Activity, unspecified; Y99.9 Unspecified external cause status; I51.9 Heart disease, unspecified; E11.9 Type 2 diabetes mellitus without complications; I10 Essential (primary) hypertension; J44.9 Chronic obstructive pulmonary disease, unspecified; F17.200 Nicotine dependence, unspecified, uncomplicated; Z79.82 Long term (current) use of aspirin; Z79.4 Long term (current) use of insulin; Z79.899 Other long term (current) drug therapy; Z88.5 Allergy status to narcotic agent; Z88.8 Allergy status to other drugs, medicaments and biological substances; Z91.040 Latex allergy status

== ENCOUNTER 2020-01-08 10:20 | Emergency (ER) | payer MEDICARE ==
[~2020-01-08] VITALS: Ht 152.4 cm; Wt 92.3 kg
[~2020-01-08 10:20] MED LIST changes: -KETO2CR EXT; -NYAM10003 EX; +NYAM10003 TOP
[2020-01-08 10:55] LABS: VENOUS BASE EXCESS 13.3 (-2.0-2.0); VENOUS HCO3 41.1 MEQ/L (23.0-27.0); VENOUS O2 SATURATION 95.6 % (60.0-80.0); VENOUS PARTIAL PRESSURE CO2 69.7 mmHg (38.0-50.0); VENOUS PARTIAL PRESSURE O2 77.9 mmHg (30.0-50.0); VENOUS PH 7.388 UNITS (7.330-7.430); VENOUS TOTAL CO2 43.2 MEQ/L (24.0-28.0)
[2020-01-08 11:02] LABS: BASO % 0.2 % (0.0-1.0); EOS # 0.3 10^3/uL (0.0-0.5); EOS % 3.3 % (0.0-3.0); HEMATOCRIT 37.6 % (36.0-47.0); HEMOGLOBIN 10.8 g/dl (12.0-15.5); LYMPH # 1.9 10^3/uL (1.5-5.0); LYMPH % 19.9 % (24.0-44.0); MEAN CORPUSCULAR HEMOGLOBIN 26.7 pg (27.0-33.0); MEAN CORPUSCULAR HGB CONC 28.7 g/dl (32.0-36.5); MEAN CORPUSCULAR VOLUME 92.8 fl (80.0-96.0); MONO # 1.5 10^3/uL (0.0-0.8); MONO % 15.3 % (0.0-5.0); NEUTROPHILS # 5.9 10^3/uL (1.5-8.5); NEUTROPHILS % 60.4 % (36.0-66.0); PLATELET COUNT, AUTOMATED 174 10^3/uL (150-450); RED BLOOD COUNT 4.05 10^6/uL (4.00-5.40); WHITE BLOOD COUNT 9.8 10^3/uL (4.0-10.0)
[2020-01-08 11:36] LABS: ALBUMIN 3.2 GM/DL (3.2-5.2); ALT/SGPT 16 U/L (12-78); BILIRUBIN,DIRECT < 0.1 MG/DL (0.0-0.2); BILIRUBIN,TOTAL 0.5 MG/DL (0.2-1.0); BLOOD UREA NITROGEN 57 MG/DL (7-18); CALCIUM LEVEL 9.1 MG/DL (8.8-10.2); CARBON DIOXIDE LEVEL 39 MEQ/L (21-32); CHLORIDE LEVEL 98 MEQ/L (98-107); CPK CREATINE PHOSPHOKINASE 166 U/L (26-192); CREATININE FOR GFR 2.15 MG/DL (0.55-1.30); GLOMERULAR FILTRATION RATE 23.6 (>39); GLUCOSE, FASTING 86 MG/DL (70-100); NT-PRO BNP 437 PG/ML (<450); POTASSIUM SERUM 5.8 MEQ/L (3.5-5.1); SODIUM LEVEL 139 MEQ/L (136-145); TOTAL PROTEIN 6.3 GM/DL (6.4-8.2); TROPONIN I < 0.02 NG/ML (< 0.10)
--- NOTE | 2020-01-08 11:37 | REP ---
CT BRAIN WITHOUT CONTRAST: CT brain performed without IV contrast. Coronal reconstruction images are performed. There is mild atrophy. There is no midline shift or mass effect. Larson-white differentiation is well maintained. There is some minor periventricular small vessel ischemic changes which are chronic in nature. There is no acute intracranial hemorrhage. There is no extra-axial fluid collection. There is no skull fracture. There are mild vascular calcifications in the carotid siphons and there are calcifications seen along the falx. IMPRESSION: Mild atrophy and periventricular small vessel ischemic changes. No acute intracranial hemorrhage or skull fracture. Electronically Signed by Hossein Larson MD 01/08/2020 12:51 P
--- NOTE | 2020-01-08 12:47 | REP ---
CT CERVICAL SPINE: CT cervical spine performed. Axial images were obtained with sagittal and coronal reconstruction images. Comparison made with prior study of 02/24/2019. There is no evidence of acute fracture or dislocation. Vertebral bodies are normal in height. There is no prevertebral soft tissue swelling. There is moderate narrowing with sclerosis and spurring as well as cystic changes at the dens adjacent to the anterior ring of C1. There is evidence of prior fusion of C5-C7. There is mild spurring of C4 and C5 with slight anterior listhesis of C4 on C5. There is spurring and disc space narrowing at C7-T1. There is sight anterior listhesis of C7 on T1. These findings are unchanged. There is diffuse narrowing, sclerosis, and spurring at the posterior facet joints. There appears to be fairly significant foraminal narrowing on the left at C3-4 with mild narrowing on the left at C4-5. Spinal canal appears adequate. There is a tiny subcentimeter nodular opacity in the right apex which appears similar to prior study. However, there appears to be a new 1 cm nodular opacity in the left apex. Recommend followup non-emergent chest CT. IMPRESSION: No acute fracture or dislocation. Stable fusion of C5-C7 vertebral bodies. Degenerative changes as discussed above. There is again mild reversal of normal cervical spine lordosis. There is a new 1 cm nodular density in the left lung apex. Recommend followup non-emergent chest CT. Electronically Signed by Hossein Larson MD 01/08/2020 12:51 P
--- NOTE | 2020-01-08 12:51 | REP ---
RIGHT ANKLE, FOUR VIEWS: There is no evidence of an acute fracture, dislocation or intrinsic bone disease. The ankle mortise is anatomic. IMPRESSION: No fracture or dislocation. Electronically Signed by Hossein Larson MD 01/08/2020 02:26 P
--- NOTE | 2020-01-08 12:52 | REP ---
PELVIS AND BILATERAL HIPS: AP view of the pelvis and AP and frog leg views of each hip performed. No fracture or dislocation is seen. There is very mild degenerative change at each hip joint with mild joint space narrowing, subchondral sclerosis, and spurring. IMPRESSION: No acute fracture or dislocation. Electronically Signed by Hossein Larson MD 01/08/2020 02:25 P
--- NOTE | 2020-01-08 12:54 | REP ---
CHEST, SINGLE VIEW: Single view of the chest is performed and compared to a prior study of 12/06/2019. There is no acute infiltrate. Lungs are unchanged in appearance. There is cardiomegaly. There is calcification of the thoracic aorta. The visualized osseous structures are unremarkable. IMPRESSION: Cardiomegaly. No acute pulmonary disease. Electronically Signed by Hossein Larson MD 01/08/2020 02:26 P
--- NOTE | 2020-01-08 12:55 | REP ---
RIGHT KNEE, FOUR VIEWS: Four views of the right knee performed. No acute fracture or dislocation is seen. There is a moderate joint effusion. There is moderate diffuse joint space narrowing with subchondral sclerosis and spurring. Vascular calcifications are seen posteriorly. IMPRESSION: Moderate joint effusion. No acute fracture or dislocation. Moderate arthritic changes. Electronically Signed by Hossein Larson MD 01/08/2020 02:26 P
[2020-01-08] MEDS ORDERED: ACETAMINOPHEN *IV* 1,000 MG in IV 1 EA IV ONE (13:45)
[2020-01-08] MEDS ORDERED: SOD POLYSTYRENE SULFONATE SUSP 15 GM/60 ML UD PO ONE (16:00)
[2020-01-08] MEDS ORDERED: PATIROMER SORBITEX CALCIUM 8.4 GM POWDER PACKET (VELTASSA) PO ONE (16:00)
[2020-01-08 17:14] VITALS: BP 170/70
--- NOTE | 2020-01-08 18:34 | ECGEPIP ---
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
[2020-01-09] MEDS ORDERED: LISI-538 PO (02:22)
--- NOTE | 2020-01-10 14:43 | ED PDOC ---
Post-Departure Follow-Up michelle dow faxed formal report of ct c spine for fu Monique Rodrigues MD Jan 10, 2020 14:43
== END 2020-01-08 17:00 | disposition home or self-care (01) ==
LOC: M ED 10:20 → EDBD 10:20 → M ED 17:00
DX: S70.02XA Contusion of left hip, initial encounter (principal); S09.90XA Unspecified injury of head, initial encounter; R00.1 Bradycardia, unspecified; X58.XXXA Exposure to other specified factors, initial encounter; Y92.9 Unspecified place or not applicable; Y93.9 Activity, unspecified; Y99.9 Unspecified external cause status; R26.81 Unsteadiness on feet; M50.30 Other cervical disc degeneration, unspecified cervical region; R91.1 Solitary pulmonary nodule; I51.7 Cardiomegaly; M25.461 Effusion, right knee; M25.571 Pain in right ankle and joints of right foot; M62.81 Muscle weakness (generalized); R29.6 Repeated falls; I48.91 Unspecified atrial fibrillation; I11.0 Hypertensive heart disease with heart failure; E11.40 Type 2 diabetes mellitus with diabetic neuropathy, unspecified; J44.9 Chronic obstructive pulmonary disease, unspecified; G47.33 Obstructive sleep apnea (adult) (pediatric); F17.200 Nicotine dependence, unspecified, uncomplicated; Z79.82 Long term (current) use of aspirin; Z79.4 Long term (current) use of insulin; Z79.899 Other long term (current) drug therapy; Z88.5 Allergy status to narcotic agent; Z88.8 Allergy status to other drugs, medicaments and biological substances; Z91.040 Latex allergy status

== ENCOUNTER 2020-01-09 01:19 | Inpatient (IN) | payer MEDICARE ==
[~2020-01-09] VITALS: Ht 152.4 cm; Wt 110.1 kg
[2020-01-09] MEDS ORDERED: ACETAMINOPHEN TAB 650MG DOSE (2X325MG) PO ONE (02:00)
--- NOTE | 2020-01-09 02:10 | IPNPDOC ---
Text Note Date of Service The patient was seen on 01/09/20. NOTE TIME OF SERVICE 530AM Ms. Falcon is an 79 old female the past medical history of COPD, chronic oxygen- dependent respiratory failure, grade 2 diastolic dysfunction, IDDM, chronic HTN, HOWARD, morbid obesity, chronic CAD, aortic stenosis, Paroxysmal A fib , and CKD 3 who is admitted for possible placement after having falls. - we will check orthostats & consult PT & PFS for possible temporary placement in a SNF Rest per 's H&P. VS,Fishbone, I+O VS, Fishbone, I+O Vital Signs Date Time Temp Pulse Resp B/P (MAP) Pulse Ox O2 Delivery O2 Flow Rate FiO2 01/09/20 01:30 64 20 198/91 (126) 95 Nasal Cannula 3.0 01/09/20 01:28 99.0 NISHA YEPEZ MD Jan 09, 2020 02:10
[2020-01-09] MEDS ORDERED: TORSEMIDE 10 MG TABLET PO ONE (02:15)
[2020-01-09] MEDS ORDERED: LISI-538 PO (02:22)
[2020-01-09] MEDS ORDERED: DICYCLOMINE 10 MG CAP PO PRN (02:30)
[2020-01-09] MEDS ORDERED: ACETAMINOPHEN TAB 650MG DOSE (2X325MG) PO PRN (02:30)
[2020-01-09] MEDS ORDERED: ALBUTEROL SULFATE 2.5 MG/0.5 ML INH NEB SOLN INH PRN (02:30)
[2020-01-09] MEDS ORDERED: NITROGLYCERIN 0.4 MG SUBL TABLET SL PRN (02:30)
[2020-01-09] MEDS ORDERED: GLUCAGON FOR INJ 1 MG VIAL (J1610) SC PRN (02:45)
[2020-01-09] MEDS ORDERED: DEXTROSE 50% 50 ML SYRINGE IV PRN (02:45)
[2020-01-09] MEDS ORDERED: GLUCOSE 4 GM CHEW TABLET PO PRN (02:45)
--- NOTE | 2020-01-09 03:11 | HPEPDOC ---
[facility] Medical History & Physical Date of Admission Jan 09, 2020 Date of Service: Jan 09, 2020 Attending Physician: NISHA YEPEZ MD History and Physical CHIEF COMPLAINT: Mechanical fall at home, increasing pain and right leg HISTORY OF PRESENT ILLNESS: Patient is a 79-year-old female presented to [facility] emergency department originally on 01/08/2020 after suffering a mechanical fall at home. Patient stated yesterday she was walking from her hallway to her kitchen when her legs gave out. She stated that she fell and hit the back of her head and landed on her right side. She had called 911 at the time and presented to [facility] emergency department where she was evaluated. At the time she received x-ray imaging of her right knee, ankle and hip, which demonstrated no acute fracture or dislocation, but some mild arthritic changes. Head CT and cervical spine CT were negative for any acut e pathology. Chest x-ray obtained only demonstrated some mild cardiomegaly. Patient was given Tylenol and plan was to admit the time. However, patient stated that she could take care of herself at home and left the hospital. Tonight the patient returns to the [facility] emergency department with complaint of pain on her right leg. She states that she thought she was able to handle the pain on her own, however, cannot. On further questioning, the patient states that she has fallen at least 4-5 times over the past month and to her knowledge, an innumerable time within the past year. She states that her difficulty is that her legs frequently give out. She does state that she has numbness in her feet which has been going on for a couple years. She denies any acute changes in her gait, speech or motor function. Denies any palpitations. She denies any syncopal episodes. In the emergency department, the patient did not receive any further laboratory elevation or imaging as she had received a workup on January 08 2020. At that time, her laboratory examination demonstrated chronic kidney disease stage IV with a GFR of 23.6 and a creatinine of 2.15 which is her baseline. Additionally, she was found to have some hyperkalemia with a potassium of 5.8. Patient was given Veltassa. Today on presentation, the patient was vitally stable, although hypertensive. She received a 30 mg dose of torsemide. Hospitalist service was consulted and the patient was admitted for further evaluation and management REVIEW OF SYSTEMS: CONSTITUTIONAL: Denies fevers, chills, night sweats. Denies unintentional weight loss or weight gain. HEENT: Denies dysphagia. Denies change in vision. Denies odynophagia. Denies migraine. CARDIOVASCULAR:. Denies chest pain or pressure. Denies palpitations or feelings of heart racing RESPIRATORY: Denies shortness of breath from her baseline. Admits to chronic cough. GASTROINTESTINAL:. Denies abdominal pain, nausea, vomiting, diarrhea or constipation. GENITOURINARY: Denies increased urgency, frequency. Denies dysuria. SKIN: Denies any rashes or lesions. MUSCULOSKELETAL: Admits to pain in her right leg. He has a chronic weakness in her legs NEUROLOGICAL: Denies any change in speech. Denies any change in gait from her baseline. PSYCHIATRIC: Denies any depression or anxiety. ENDOCRINE: Admits to history of diabetes. Denies heat intolerance, or cold intolerance HEMATOLOGIC/LYMPHATIC: Denies easy bruising or bleeding. Denies history of deep vein thrombosis or pulmonary embolism. PAST MEDICAL HISTORY: 1. Chronic Hypertension. 2. Diabetes mellitus type 2, poorly controlled. 3. Chronic obstructive pulmonary disease with chronic hypoxemic respiratory failure requiring 3 L nasal cannula 4. Obstructive sleep apnea, noncompliant with CPAP 5. Chronic kidney disease stage IV 6. Hyperlipidemia PAST SURGICAL HISTORY: 1. Bilateral shoulder repair. 2. Bilateral knee arthroscopy. 3. section 4. SOCIAL HISTORY: Patient currently lives alone in an apartment. She is able to complete her ADLs with the assistance of home aides whom come to her house 3 times a day. She is a current smoker. She started smoking at the age of [age] years old. At her most was smoking 1 pack per day. She currently smokes 8 cigarettes per day. She denies alcohol use. She denies IV or illicit drug use FAMILY HISTORY: Patient's mother and father are both . Both have from cancer, although she is unsure of the type. She has 8 brothers, 6 of which have from lung cancer. 2 are currently alive. She has 3 sisters who are all alive and well ALLERGIES: Please see below. HOME MEDICATIONS: Please see below. PHYSICAL EXAMINATION: VITAL SIGNS: Temperature 99.0, pulse, 64, respiratory rate 20, blood pressure 198\\91, pulse oximetry 95%. 3 L nasal cannula GENERAL APPEARANCE: Patient is awake, alert and oriented. She does not appear in any acute distress. She sitting comfortably on the edge of the stretcher HEENT: Atraumatic, normocephalic. Eyes are nonicteric. Trachea is midline. Neck is dupree. His nares are pink and moist. CARDIOVASCULAR: Normal S1, S2, regular rate and rhythm. No clicks, rubs or murmurs. LUNGS: Scattered wheezing throughout. Overall decreased breath sounds throughout. No rhonchi or crackles.. No excessive muscle use ABDOMEN: Morbidly obese, soft, nondistended, nontender, no rebound tenderness or guarding. Normoactive bowel sounds. MUSCULOSKELETAL:, 3 out of 5 muscle strength testing in bilateral lower extremities EXTREMITIES:, 2+ pitting edema. Multiple keratotic lesions on her bilateral lower extremities. Full and equal pulses bilateral upper and lower extremities NEUROLOGICAL: No Focal neurological deficits. PSYCHIATRIC: Mood and Affect appear appropriate. LABORATORY DATA: 01/08/20 WBC 9.8, hemoglobin 10.8, platelets 174 Sodium 139, potassium 5.8 (specimen slightly hemolyzed) Bicarbonate 98 carbon dioxide 39, BUN 57, creatinine 2.15, glucose 86 IMAGING: RIGHT KNEE, FOUR VIEWS: "IMPRESSION: Moderate joint effusion. No acute fracture or dislocation. Moderate arthritic changes." PELVIS AND BILATERAL HIPS: "IMPRESSION: No acute fracture or dislocation." CT BRAIN WITHOUT CONTRAST: " IMPRESSION: Mild atrophy and periventricular small vessel ischemic changes. No acute intracranial hemorrhage or skull fracture." CHEST, SINGLE VIEW: "IMPRESSION: Cardiomegaly. No acute pulmonary disease." CT CERVICAL SPINE: "IMPRESSION: No acute fracture or dislocation. Stable fusion of C5-C7 vertebral bodies. Degenerative changes as discussed above. There is again mild reversal of normal cervical spine lordosis. There is a new 1 cm nodular density in the left lung apex. Recommend followup non-emergent chest CT." RIGHT ANKLE, FOUR VIEWS: "IMPRESSION: No fracture or dislocation." ASSESSMENT: Patient is a 79-year-old female who presented to [facility] for department for worsening pediatrics principal fall yesterday. She has had a history of multiple mechanical falls with as many as 4 within the past month. PLAN: 1. Mechanical fall, likely secondary to diabetic neuropathy and debility -Patient suffered a mechanical fall yesterday presented to the emergency room where she received x-rays. His CT scan of her head, all which were negative for any acute process. Of note, patient has fallen at least 4 times within the past month and states that she has fallen and innumerable amount of times within the past year -Patient denies any palpitations or syncope associated with her falls and states that there all mechanical. She feels her legs go out from under her. -Patient is a poorly controlled diabetic. She is noted numbness in her feet for the past year or so. She'll have a source from diabetic neuropathy which contribute to her gait imbalance -Patient currently lives in an apartment alone. She does have aids that come there 3 times a day to assist her. Patient may benefit from placement in a long- term care facility given her multiple falls. This was discussed with the patient who is resistant to the idea of moving out of her apartment. -Physical therapy and occupational therapy -Hold zolpidem which can increase her risk of falling 2. Right-sided leg and hip pain secondary to mechanical fall -Patient is pain on her right side secondary to her fall yesterday. We'll continue her home medications including her Percocet. Patient has Tylenol when necessary for pain as well 3. Chronic kidney disease stage IV -We'll tentatively avoid nephrotoxic agents. Patient's currently at her baseline creatinine. -She did have elevation of her potassium yesterday of 5.8 when she presented a sperm she was given Valtessa. This may be close to her normal given her kidney disease. Will continue to monitor. -Continue calcitriol -Continue allopurinol 4. Chronic Hypertension -Patient's hypertension, systolic of 198 presentation the ER today. He has since come down to systolic of 130 -Will continue patient's home medications 5. Insulin dependent diabetes mellitus type 2, complicated by kidney disease and polyneuropathy -Will place patient on Levemir while inpatient. Sliding scale coverage for before meals and at bedtime -Patient likely has diabetic polyneuropathy which is attributed to her falls. Will continue her gabapentin and pregabalin. -Continue patient's Crestor and aspirin for primary prevention 6. Gastroesophageal reflux disease -Continue Protonix and sucralfate 7. Chronic obstructive pulmonary disease -Currently stable. Will continue albuterol inhaler 8. Obstructive sleep apnea, noncompliant on CPAP -Patient has obstructive sleep apnea. She does not use CPAP at home. She will likely have desaturations at night. Will place oxygen therapy orders with titration orders to 80-92%. 9. Intertrigo -Ketoconazole and Nystatin to be applied to the inguinal folds and folds of her pannus. 10. Insomnia -Continue Ambien 11. Morbid Obesity with co-existing HOWARD and DM complicates care. 12. Pulmonary Nodule -follow up with PCP to discuss surveillance 13. DVT prophylaxis -Heparin subcutaneous DISPO: possible transfer to SNF after PT eval Home Medications Scheduled Allopurinol (Allopurinol) 100 Mg Tab, 100 MG PO DAILY Aspirin (Aspir 81) 81 Mg Tab, 81 MG PO DAILY Calcitriol (Rocaltrol) 0.25 Mcg Capsule, 0.5 MCG PO DAILY Diclofenac Sodium (Diclofenac Sodium) 1% 100GM Gel..gram., 1 GM TOP QID APPLY TO FEET Gabapentin (Gabapentin) 100 Mg Capsule, 200 MG PO TID Insulin Aspart (Novolog Flexpen) 100 Unit/1 Ml Insuln.pen, 10 UNITS SC BID Insulin Degludec (Tresiba Flextouch U-100) 100 Unit/Ml Inj, 80 UNIT SC DAILY Isosorbide Mononitrate (Isosorbide Mononitrate ER) 30 Mg Tab, 30 MG PO DAILY Ketoconazole (Ketoconazole) 15 Gm Cream..g., 1 APPLIC TOP BID APPLY TO BOTH FEET Lisinopril (Lisinopril) 20 Mg Tablet, 20 MG PO DAILY Nystatin (Nyamyc) 15 Gm Powder, 1 APPLIC TOP BID UNDER BREASTS AND ABDOMINAL FOLDS Pantoprazole Sodium (Pantoprazole Sodium) 40 Mg Tablet.dr, 40 MG PO DAILY Pregabalin (Lyrica) 75 Mg Capsule, 75 MG PO TID Rosuvastatin Calcium (Crestor) 20 Mg Tab, 20 MG PO QHS Sucralfate (Carafate) 1 Gm Tablet, 1 GM PO QID Torsemide (Torsemide) 20 Mg Tablet, 50 MG PO DAILY Zolpidem Tartrate (Ambien) 10 Mg Tablet, 10 MG PO QHS Scheduled PRN Albuterol Sulfate (Albuterol Sulfate) 2.5 Mg/0.5 Ml Neb, 2.5 MG INH Q4H PRN for SHORTNESS OF BREATH Dicyclomine HCl (Dicyclomine HCl) 10 Mg Capsule, 10 MG PO TID PRN for ABDOMINAL PAIN TAKES A TID SCHEDULED MED Hydrocodone/Acetaminophen ([place] 10-325 Tablet) 1 Tab Tab, 1 TAB PO Q6H PRN for PAIN Nitroglycerin (Nitroglycerin) 0.4 Mg Sub, 0.4 MG SL NITRO PRN for CHEST PAIN Allergies Coded Allergies: lisinopril (Verified Allergy, Severe, angioedema lip, 12/06/19) angioedema lip latex (Verified Allergy, Intermediate, RASH/ITCHING, 12/06/19) codeine (Verified Adverse Reaction, Mild, HEADACHE, 12/06/19) oxycodone (Verified Adverse Reaction, Mild, CONFUSION, 12/06/19) A-FIB/CHADSVASC A-FIB History Current/History of A-Fib/PAF?: No GME ATTESTATION GME ATTESTATION My faculty preceptor for this patient encounter was physically present during the encounter and was fully available. All aspects of the patient interview, examination, medical decision making process, and medical care plan development were reviewed and approved by the faculty preceptor. The faculty preceptor is aware and concurs with the plan as stated in the body of this note and will attest to such by his/her cosignature. ATTENDING NOTE I reviewed and edited the H&P and agree with the findings as documented. Pls see my addendum form 02/07/2020 JAIR BARON DO Jan 09, 2020 03:11 NISHA YEPEZ MD Jan 09, 2020 05:07
[2020-01-09 04:00] VITALS: BP 127/67
[2020-01-09] MEDS: HEPARIN SOD (PORCINE) 5000 UNITS/ML VIAL (J1644 PER 1000UNITS) SQ SCH ×3 (05:14→22:41)
[2020-01-09 07:21] LABS: CALCIUM LEVEL 9.1 MG/DL (8.8-10.2); CREATININE FOR GFR 2.1 MG/DL (0.55-1.30); GLOMERULAR FILTRATION RATE 24.2 (>39); POTASSIUM SERUM 4.5 MEQ/L (3.5-5.1)
[2020-01-09] MEDS: HumaLOG INSULIN (NovoLOG) PER UNIT SC SCH ×4 (07:28→21:00)
--- NOTE | 2020-01-09 08:20 | IPNPDOC ---
Date Seen The patient was seen on 01/09/20. Progress Note SUBJECTIVE: Pt seen and examined at bedside. Lethargic and would not participate much with interview. Denies any pain or other issues. Would not participate in ROS therefore unable to obtain. OBJECTIVE PHYSICAL EXAMINATION: VITAL SIGNS: Please see below. GENERAL: obese, unkempt woman laying in bed, lethargic, intermittently participates with questions and exam NECK: redundant, nl LAD appreciated CARDIOVASCULAR: RRR, nl s1/2, +murmur, no rg RESPIRATORY: crackles thoughout, scattered wheeze ABDOMINAL: obese, soft, NT, ND EXTREMITIES: intact distal pulses, 1+ edema in b/l LE SKIN: no skin breakdown NEUROLOGICAL: pt would not participate in neurologic exam PSYCHOLOGICAL: lethargic LABORATORY DATA, IMAGING STUDIES, MICROBIOLOGY: Please see below. ASSESSMENT AND PLAN: 1. Mechanical fall, likely secondary to diabetic neuropathy and old age debility -Patient suffered a mechanical fall yesterday presented to the emergency room where she received x-rays. His CT scan of her head, all which were negative for any acute process. Of note, patient has fallen at least 4 times within the past month and states that she has fallen and innumerable amount of times within the past year -Patient denies any palpitations or syncope associated with her falls and states that there all mechanical. She feels her legs go out from under her. -Patient is a poorly controlled diabetic. She is noted numbness in her feet for the past year or so. Pt has a source of diabetic neuropathy which contribu miles to her gait imbalance -Patient currently lives in an apartment alone. She does have aids that come there 3 times a day to assist her. Patient may benefit from placement in a long- term care facility given her multiple falls. This was discussed with the patient who is resistant to the idea of moving out of her apartment. -Physical therapy and occupational therapy -Hold zolpidem which can increase her risk of falling 2. Right-sided leg and hip pain secondary to mechanical fall -Patient is pain on her right side secondary to her fall yesterday. We'll continue her home medications including her Percocet. Patient has Tylenol when necessary for pain as well 3. Chronic kidney disease stage IV -Avoid nephrotoxic agents. Patient's currently at her baseline creatinine. -She did have elevation of her potassium yesterday of 5.8. This may be close to her normal given her kidney disease. Will continue to monitor. -Continue calcitriol -Continue allopurinol 4. Chronic Hypertension -Patient's hypertension, systolic of 198 presentation the ER today. He has since come down to systolic of 130 -Will continue patient's home medications 5. Insulin dependent diabetes mellitus type 2, complicated by kidney disease and polyneuropathy -Will place patient on Levemir while inpatient. Sliding scale coverage for before meals and at bedtime -Patient likely has diabetic polyneuropathy which is attributed to her falls. Will continue her gabapentin and pregabalin. -Continue patient's Crestor and aspirin for primary prevention 6. Gastroesophageal reflux disease -Continue Protonix and sucralfate 7. Chronic obstructive pulmonary disease with chronic hypoxic respiratory failure -Currently stable. Will continue albuterol inhaler -cont. supplemental O2 at home level with goal O2 sat 88-92% -due to lethargy concern for CO2 retention above her baseline -will get ABG to assess 8. Obstructive sleep apnea, noncompliant on CPAP -Patient has obstructive sleep apnea. She does not use CPAP at home. She will likely have desaturations at night. Will place oxygen therapy orders with titration orders to 88-92%. 9. Intertrigo -Ketoconazole and Nystatin to be applied to the inguinal folds and folds of her pannus. 10. Insomnia -will hold Ambien in the setting of recent falls as may be related 11. Morbid Obesity with co-existing HOWARD and DM complicates care. -lifestyle modification discussion on discharge -pt would benefit from sales assistant entertainment and media consult 12. Pulmonary Nodule -follow up with PCP to discuss surveillance 13. DVT prophylaxis -Heparin subcutaneous given renal disease DISPO: Pending PT eval for possible placement in LTC facility VS, I&O, 24H, Fishbone Vital Signs/I&O Vital Signs Date Time Temp Pulse Resp B/P (MAP) Pulse Ox O2 Delivery O2 Flow Rate FiO2 01/09/20 04:00 97.6 57 18 127/67 (87) 96 Nasal Cannula 3.0 I&O- Last 24 Hours up to 6 AM 01/09/20 06:00 Intake Total 0 ml Balance 0 ml Laboratory Data 24H LABS Laboratory Tests 2 01/09/20 06:04: Anion Gap 1L, Glomerular Filtration Rate 24.2L, Calcium Level 9.1 01/09/20 07:50: Bedside Glucose (Misc Panel) 89 CBC/BMP Laboratory Tests 01/09/20 06:04 SHANNAN LI MD Jan 09, 2020 08:20
[2020-01-09] MEDS: KETOCONAZOLE 2% CREAM TOP SCH ×2 (08:54→22:58)
[2020-01-09] MEDS: NYSTATIN 100,000 UNITS/GM TOPICAL PWD 15 GM TOP SCH ×2 (08:54→22:40)
[2020-01-09] MEDS: TORSEMIDE (DEMADEX) 50 MG PER 1/2 TAB PO SCH (08:55)
[2020-01-09] MEDS: CALCITRIOL 0.25 MCG CAP (S0169) PO SCH (08:55)
[2020-01-09] MEDS: ASPIRIN 81 MG ENTERIC TAB PO SCH (08:55)
[2020-01-09] MEDS: PANTOPRAZOLE 40MG TAB (PROTONIX) PO SCH (08:55)
[2020-01-09] MEDS: SUCRALFATE 1 GM TAB PO SCH ×4 (08:55→22:41)
[2020-01-09] MEDS: GABAPENTIN 100 MG CAP PO SCH ×3 (08:55→22:40)
[2020-01-09] MEDS: PREGABALIN 75 MG CAP(LYRICA) PO SCH ×3 (08:55→22:41)
[2020-01-09] MEDS: allopurinoL 100 MG TAB PO SCH (08:55)
[2020-01-09] MEDS: LEVEMIR (INSULIN DETEMIR) 1 UNITS/0.01ML SC SCH ×2 (08:56→22:42)
[2020-01-09] MEDS: ISOSORBIDE MON. (IMDUR) 30 MG XR TAB PO SCH (09:00)
[2020-01-09 11:22] VITALS: O2SAT 100
[2020-01-09 14:00] VITALS: BP 98/65
[2020-01-09] MEDS: IPRATROPIUM 0.5MG/ALBUTEROL 2.5MG INH SOL UD 3ML (DUONEB)(J7620) NEB SCH ×2 (14:00→20:02)
[2020-01-09] MEDS ORDERED: ALBUTEROL SULFATE 2.5 MG/0.5 ML INH NEB SOLN INH SCH (17:00)
[2020-01-09] MEDS: PERCOCET 5MG/325MG TAB PO PRN (17:06)
[2020-01-09] MEDS ORDERED: zolPIDEM TARTRATE 5 MG TAB PO SCH (21:00)
[2020-01-09 22:00] VITALS: BP 113/53
[2020-01-09] MEDS: ROSUVASTATIN 10 MG TAB (CRESTOR) PO SCH (22:41)
[2020-01-10] MEDS: IPRATROPIUM 0.5MG/ALBUTEROL 2.5MG INH SOL UD 3ML (DUONEB)(J7620) NEB SCH ×4 (01:00→18:04)
[2020-01-10] MEDS: HEPARIN SOD (PORCINE) 5000 UNITS/ML VIAL (J1644 PER 1000UNITS) SQ SCH ×3 (05:58→21:43)
[2020-01-10 06:00] VITALS: BP 127/54
[2020-01-10 06:32] LABS: CALCIUM LEVEL 9.4 MG/DL (8.8-10.2); CREATININE FOR GFR 2.27 MG/DL (0.55-1.30); GLOMERULAR FILTRATION RATE 22.2 (>39); POTASSIUM SERUM 4.3 MEQ/L (3.5-5.1)
[2020-01-10] MEDS: NYSTATIN 100,000 UNITS/GM TOPICAL PWD 15 GM TOP SCH ×2 (09:00→21:42)
[2020-01-10] MEDS: KETOCONAZOLE 2% CREAM TOP SCH ×2 (09:00→21:42)
[2020-01-10] MEDS: HumaLOG INSULIN (NovoLOG) PER UNIT SC SCH ×4 (09:26→21:42)
[2020-01-10] MEDS: cefTRIAXone SOD 1 GM in D5W MINI-BAG PLUS 50 ML IV SCH (09:26)
[2020-01-10] MEDS: TORSEMIDE (DEMADEX) 50 MG PER 1/2 TAB PO SCH (09:27)
[2020-01-10] MEDS: PERCOCET 5MG/325MG TAB PO PRN ×2 (09:27→16:46)
[2020-01-10] MEDS: ASPIRIN 81 MG ENTERIC TAB PO SCH (09:27)
[2020-01-10] MEDS: SUCRALFATE 1 GM TAB PO SCH ×4 (09:27→21:41)
[2020-01-10] MEDS: allopurinoL 100 MG TAB PO SCH (09:27)
[2020-01-10] MEDS: PANTOPRAZOLE 40MG TAB (PROTONIX) PO SCH (09:27)
[2020-01-10] MEDS: PREGABALIN 75 MG CAP(LYRICA) PO SCH ×3 (09:28→21:41)
[2020-01-10] MEDS: CALCITRIOL 0.25 MCG CAP (S0169) PO SCH (09:28)
[2020-01-10] MEDS: GABAPENTIN 100 MG CAP PO SCH ×3 (09:28→21:41)
[2020-01-10] MEDS: ISOSORBIDE MON. (IMDUR) 30 MG XR TAB PO SCH (09:38)
[2020-01-10] MEDS: LEVEMIR (INSULIN DETEMIR) 1 UNITS/0.01ML SC SCH ×2 (10:27→21:42)
[2020-01-10 14:00] VITALS: BP 113/44
--- NOTE | 2020-01-10 14:14 | IPNPDOC ---
Date Seen The patient was seen on 01/10/20. Progress Note SUBJECTIVE: Patient seen and examined at bedside. Patient says she is feeling better today. Patient complained of some right lower extremity pain and swelling. Per nursing, patient ambulated with PT. Patient still unable to do stairs and will therefore need placement. Patient has other symptoms of fevers, chills, chest pain, worsened breathing, nausea, vomiting, diarrhea. OBJECTIVE PHYSICAL EXAMINATION: VITAL SIGNS: Please see below. GENERAL: obese woman sitting up in chair eating, answering questions appropriately NECK: redundant CARDIOVASCULAR: RRR, nl s1/2, +murmur, no rg RESPIRATORY: mild crackles in right base otherwise clear ABDOMINAL: obese, soft, NT, ND EXTREMITIES: intact distal pulses, 2+ edema LE edema in right leg and 1+ in LLE SKIN: no skin breakdown NEUROLOGICAL: No focal deficits, normal speech PSYCHOLOGICAL: AAO 3, appropriate LABORATORY DATA, IMAGING STUDIES, MICROBIOLOGY: Please see below. ASSESSMENT AND PLAN: Ms. Falcon is an 79 old female the past medical history of COPD, chronic oxygen- dependent respiratory failure, grade 2 diastolic dysfunction, IDDM, chronic HTN, HOWARD, morbid obesity, chronic CAD, aortic stenosis, Paroxysmal A fib , and CKD 3 who is admitted for possible placement after having falls. Pt otherwise medically stable and awaiting placement. We get right lower extremity Doppler to rule out clot. 1. Mechanical fall, likely secondary to diabetic neuropathy and old age debility -patient has fallen at least 4 times within the past month and states that she has fallen and innumerable amount of times within the past year -Patient currently lives in an apartment alone. She does have aids that come there 3 times a day to assist her. Patient may benefit from placement in a long- term care facility given her multiple falls. This was discussed with the patient who is resistant to the idea of moving out of her apartment. -Continue physical therapy and occupational therapy -Continue to hold zolpidem which can increase her risk of falling 2. Right-sided leg and hip pain secondary to mechanical fall -Patient is pain on her right side secondary to her fall yesterday. We'll continue her home medications including her Percocet. Patient has Tylenol when necessary for pain as well -Given asymmetric swelling on right side lower extremity will get Doppler to rule out clot 3. Chronic kidney disease stage IV -Avoid nephrotoxic agents. Patient's currently at her baseline creatinine. -Continue calcitriol -Continue allopurinol 4. Chronic Hypertension -Patient's hypertension, systolic of 198 presentation the ER -Trend BP, currently controlled -Will continue patient's home medications 5. Insulin dependent diabetes mellitus type 2, complicated by kidney disease and polyneuropathy -Will place patient on Levemir while inpatient. Sliding scale coverage for before meals and at bedtime -Patient likely has diabetic polyneuropathy which is attributed to her falls. Will continue her gabapentin and pregabalin. -Continue patient's Crestor and aspirin for primary prevention 6. Gastroesophageal reflux disease -Continue Protonix and sucralfate 7. Chronic obstructive pulmonary disease with chronic hypoxic respiratory failure -Currently stable. Will continue albuterol inhaler -Does not appear to be in exacerbation at this time -cont. supplemental O2 at home level with goal O2 sat 88-92% -cont. to monitor resp status 8. Obstructive sleep apnea, noncompliant on CPAP -Patient has obstructive sleep apnea. She does not use CPAP at home. She will likely have desaturations at night. Will place oxygen therapy orders with titration orders to 88-92%. 9. Intertrigo -Ketoconazole and Nystatin to be applied to the inguinal folds and folds of her pannus. 10. Insomnia -will hold Ambien in the setting of recent falls as may be related 11. Morbid Obesity with co-existing HOWARD and DM complicates care. -lifestyle modification discussion on discharge -pt would benefit from rigging slinger consult 12. Pulmonary Nodule -follow up with PCP to discuss surveillance 13. DVT prophylaxis -Heparin subcutaneous given renal disease DISPO: Pending placement in LTC vs. [facility] VS, I&O, 24H, [facility] Vital Signs/I&O Vital Signs Date Time Temp Pulse Resp B/P (MAP) Pulse Ox O2 Delivery O2 Flow Rate FiO2 01/10/20 09:57 19 01/10/20 09:38 151/54 01/10/20 06:00 96.4 64 91 Nasal Cannula 2.0 I&O- Last 24 Hours up to 6 AM0 01/10/20 06:00 Intake Total 1820 ml Output Total 1000 ml Balance 820 ml Laboratory Data 24H LABS Laboratory Tests 2 01/09/20 14:39: Urine Color STRAW, Urine Appearance CLEAR, Urine pH 7.0, Urine Specific [place] 1.009, Urine Protein NEGATIVE, Urine Glucose (UA) NEGATIVE, Urine Ketones NEGATIVE, Urine Blood NEGATIVE, Urine Nitrite NEGATIVE, Urine Bilirubin NEGATIVE, Urine Urobilinogen 0.2, Urine Leukocyte Esterase 2+H, Urine WBC (Auto) 53H, Urine RBC (Auto) 1, Urine Hyaline Casts (Auto) 0, Urine Bacteria (Auto) 1+H, Urine Squamous Epithelial Cells 1, Urine Sperm (Auto) 01/09/20 16:49: Bedside Glucose (Misc Panel) 109 01/09/20 20:13: Bedside Glucose (Misc Panel) 201H 01/10/20 05:32: Anion Gap 1L, Glomerular Filtration Rate 22.2L, Calcium Level 9.4 01/10/20 11:29: Bedside Glucose (Misc Panel) 172H CBC/BMP Laboratory Tests 01/10/20 05:32 Microbiology Microbiology 01/09/20 Urine Culture, Received Pending SHANNAN LI MD Jan 10, 2020 14:14
--- NOTE | 2020-01-10 14:19 | REP ---
Right lower extremity Duplex Doppler venous ultrasound: Real time compression and duplex Doppler interrogation of the right lower extremity deep venous system is performed. The right common femoral, superficial femoral and popliteal veins are fully compressible with transducer pressure and demonstrate normal spontaneous and phasic flow, without evidence of deep venous thrombosis. Impression: No evidence of deep venous thrombosis of the right lower extremity femoral popliteal venous system. Electronically Signed by Hossein Larson MD 01/10/2020 02:10 P
[2020-01-10 16:33] VITALS: BP_SYST 133; BP_SYST 138; BP_SYST 140; BP_DIAS 53; BP_DIAS 55; BP_DIAS 73
[2020-01-10] MEDS: ROSUVASTATIN 10 MG TAB (CRESTOR) PO SCH (21:41)
[2020-01-10 22:00] VITALS: BP_SYST 114; BP_SYST 128; BP_DIAS 50; BP_DIAS 75
[2020-01-11] MEDS: IPRATROPIUM 0.5MG/ALBUTEROL 2.5MG INH SOL UD 3ML (DUONEB)(J7620) NEB SCH ×3 (00:49→13:37)
[2020-01-11 00:51] VITALS: O2SAT 99
[2020-01-11 06:00] VITALS: BP 149/54
[2020-01-11] MEDS: HEPARIN SOD (PORCINE) 5000 UNITS/ML VIAL (J1644 PER 1000UNITS) SQ SCH (06:12)
[2020-01-11 06:47] LABS: CALCIUM LEVEL 9.2 MG/DL (8.8-10.2); CREATININE FOR GFR 2.12 MG/DL (0.55-1.30); POTASSIUM SERUM 4.8 MEQ/L (3.5-5.1)
[2020-01-11] MEDS: cefTRIAXone SOD 1 GM in D5W MINI-BAG PLUS 50 ML IV SCH (08:21)
[2020-01-11] MEDS: HumaLOG INSULIN (NovoLOG) PER UNIT SC SCH ×2 (08:23→12:28)
[2020-01-11 08:24] VITALS: BP 149/54
[2020-01-11] MEDS: GABAPENTIN 100 MG CAP PO SCH (08:24)
[2020-01-11] MEDS: allopurinoL 100 MG TAB PO SCH (08:24)
[2020-01-11] MEDS: ISOSORBIDE MON. (IMDUR) 30 MG XR TAB PO SCH (08:24)
[2020-01-11] MEDS: PREGABALIN 75 MG CAP(LYRICA) PO SCH (08:24)
[2020-01-11] MEDS: PANTOPRAZOLE 40MG TAB (PROTONIX) PO SCH (08:24)
[2020-01-11] MEDS: SUCRALFATE 1 GM TAB PO SCH ×2 (08:24→12:29)
[2020-01-11] MEDS: ASPIRIN 81 MG ENTERIC TAB PO SCH (08:24)
[2020-01-11] MEDS: CALCITRIOL 0.25 MCG CAP (S0169) PO SCH (08:24)
[2020-01-11] MEDS: TORSEMIDE (DEMADEX) 50 MG PER 1/2 TAB PO SCH (08:24)
[2020-01-11] MEDS: NYSTATIN 100,000 UNITS/GM TOPICAL PWD 15 GM TOP SCH (08:25)
[2020-01-11] MEDS: KETOCONAZOLE 2% CREAM TOP SCH (08:25)
[2020-01-11] MEDS: LEVEMIR (INSULIN DETEMIR) 1 UNITS/0.01ML SC SCH (08:39)
[2020-01-11] MEDS ORDERED: TRES1INJ2 SC (09:51)
[2020-01-11] MEDS ORDERED: IPRA0.00 NEB (09:51)
[2020-01-11] MEDS ORDERED: AMPI500C9 PO (09:51)
[2020-01-11] MEDS ORDERED: AMLO5TAB6 PO (09:52)
[2020-01-11 14:00] VITALS: BP 147/59
--- NOTE | 2020-01-12 11:25 | DS.PDOC ---
Discharge Summary General Date of Admission Jan 09, 2020 at 02:02 Date of Discharge 01/11/20 Discharge Summary PROCEDURES PERFORMED DURING STAY: [None]. DISCHARGE DIAGNOSES: Multiple mechanical falls due to generalized deconditioning, poor balance due to neuropathy SECONDARY DIAGNOSIS: COPD, chronic hypoxic respiratory failure, grade 2 diastolic dysfunction, IDDM wit neuropathy, chronic HTN, HOWARD untreated, Morbid obesity, chronic CAD, aortic stenosis, Paroxysmal A fib , and CKD 4 COMPLICATIONS/CHIEF COMPLAINT: Fall,Unsteady Gait. HISTORY OF PRESENT ILLNESS: See history and physical HOSPITAL COURSE: Ms. Falcon is an 79 old female the past medical history of COPD, chronic oxygen-dependent respiratory failure, grade 2 diastolic dysfunction, IDDM, chronic HTN, HOWARD, morbid obesity, chronic CAD, aortic stenosis, Paroxysmal A fib , and CKD 3 who is admitted for possible placement after having falls. Pt otherwise medically stable and awaiting placement. We get right lower extremity Doppler to rule out clot. Mechanical fall, likely secondary to diabetic neuropathy and old age debility patient has fallen at least 4 times within the past month and states that she has fallen and innumerable amount of times within the past year Continue physical therapy and occupational therapy Continue to hold zolpidem which can increase her risk of falling Right-sided leg and hip pain secondary to mechanical fall Patient is pain on her right side secondary to her fall yesterday. We'll continue her home medications including her Percocet. Patient has Tylenol when necessary for pain US doppler negative Chronic kidney disease stage IV with chronic fluid overload Avoid nephrotoxic agents. Patient's currently at her baseline creatinine. Continue calcitriol Continue allopurinol will increase torsemide. Chronic Hypertension Trend BP, currently controlled Will continue patient's home medications Insulin dependent diabetes mellitus type 2, complicated by kidney disease and polyneuropathy Will place patient on Levemir while inpatient. Sliding scale coverage for before meals and at bedtime Patient likely has diabetic polyneuropathy which is attributed to her falls. Will continue her gabapentin and pregabalin. Continue patient's Crestor and aspirin for primary prevention Gastroesophageal reflux disease Continue Protonix and sucralfate Chronic obstructive pulmonary disease with chronic hypoxic respiratory failure Currently stable. Will continue albuterol inhaler Does not appear to be in exacerbation at this time cont. supplemental O2 at home level with goal O2 sat 88-92% Obstructive sleep apnea, noncompliant on CPAP Patient has obstructive sleep apnea. She does not use CPAP at home. She will likely have desaturations at night. Will place oxygen therapy orders with titration orders to 88-92%. Intertrigo Ketoconazole and Nystatin to be applied to the inguinal folds and folds of her pannus. Insomnia will hold Ambien in the setting of recent falls as may be related Morbid Obesity with co-existing HOWARD and DM complicates care. lifestyle modification discussion on discharge Pulmonary Nodule follow up with PCP to discuss surveillance DVT prophylaxis Heparin subcutaneous given renal disease DISCHARGE MEDICATIONS: Please see below. ALLERGIES: Please see below. PHYSICAL EXAMINATION ON DISCHARGE: VITAL SIGNS: Please see below. GENERAL: obese woman sitting up in chair eating, answering questions appropriately NECK: redundant CARDIOVASCULAR: RRR, nl s1/2, +murmur, no rg RESPIRATORY: mild crackles in right base otherwise clear ABDOMINAL: obese, soft, NT, ND EXTREMITIES: 2+ edema LE edema in right leg and 1+ in LLE SKIN: no skin breakdown NEUROLOGICAL: No focal deficits, normal speech PSYCHOLOGICAL: AAO 3, appropriate LABORATORY DATA: Please see below. ACTIVITY: [As tolerated]. DIET: Carb consistent DISPOSITION: 01 Home, Self-Care. DISCHARGE CONDITION: [Stable]. TIME SPENT ON DISCHARGE: 35 minutes. Vital Signs/I&Os Vital Signs Date Time Temp Pulse Resp B/P (MAP) Pulse Ox O2 Delivery O2 Flow Rate FiO2 01/11/20 14:00 96.8 68 20 147/59 (88) 91 Nasal Cannula 3.0 I&O- Last 24 Hours up to 6 AM 01/11/20 06:00 Intake Total 2820 ml Output Total 1000 ml Balance 1820 ml Laboratory Data Labs 24H Laboratory Tests 2 01/10/20 20:30: Bedside Glucose (Misc Panel) 271H 01/11/20 06:03: Anion Gap 2L, Glomerular Filtration Rate 24.0L, Calcium Level 9.2 01/11/20 12:05: Bedside Glucose (Misc Panel) 197H 01/11/20 16:43: Bedside Glucose (Misc Panel) 225H CBC/BMP Laboratory Tests 01/11/20 06:03 FSBS Laboratory Tests Test 01/10/20 20:30 01/11/20 12:05 01/11/20 16:43 Range/Units Bedside Glucose (Misc Panel) 271 197 225 83-110 MG/DL Microbiology Microbiology 01/09/20 Urine Culture - Final, Complete Enterococcus Faecalis Discharge Medications Scheduled Allopurinol (Allopurinol) 100 Mg Tab, 100 MG PO DAILY, (Reported) Amlodipine Besylate (Amlodipine Besylate) 5 Mg Tablet, 1 TAB PO DAILY Ampicillin Trihydrate (Ampicillin Trihydrate) 500 Mg Capsule, 500 MG PO QID Aspirin (Aspir 81) 81 Mg Tab, 81 MG PO DAILY, (Reported) Calcitriol (Rocaltrol) 0.25 Mcg Capsule, 0.5 MCG PO DAILY, (Reported) Gabapentin (Gabapentin) 100 Mg Capsule, 200 MG PO TID, (Reported) Insulin Aspart (Novolog Flexpen) 100 Unit/1 Ml Insuln.pen, 10 UNITS SC BID, (Reported) Insulin Degludec (Tresiba Flextouch U-100) 100 Unit/Ml Inj, 60 UNIT SC DAILY Ipratropium/Albuterol Sulfate (Iprat-Albut 0.5-3(2.5) mg/3 ml) 3 Ml Ampul.neb, 3 ML NEB RQ8H Isosorbide Mononitrate (Isosorbide Mononitrate ER) 30 Mg Tab, 30 MG PO DAILY, (Reported) Ketoconazole (Ketoconazole) 15 Gm Cream..g., 1 APPLIC TOP BID, (Reported) APPLY TO BOTH FEET Nystatin (Nyamyc) 15 Gm Powder, 1 APPLIC TOP BID, (Reported) UNDER BREASTS AND ABDOMINAL FOLDS Pantoprazole Sodium (Pantoprazole Sodium) 40 Mg Tablet.dr, 40 MG PO DAILY, (Reported) Pregabalin (Lyrica) 75 Mg Capsule, 75 MG PO TID, (Reported) Rosuvastatin Calcium (Crestor) 20 Mg Tab, 20 MG PO QHS, (Reported) Sucralfate (Carafate) 1 Gm Tablet, 1 GM PO QID, (Reported) Torsemide (Torsemide) 20 Mg Tablet, 50 MG PO DAILY, (Reported) Scheduled PRN Albuterol Sulfate (Albuterol Sulfate) 2.5 Mg/0.5 Ml Neb, 2.5 MG INH Q4H PRN for SHORTNESS OF BREATH, (Reported) Dicyclomine HCl (Dicyclomine HCl) 10 Mg Capsule, 10 MG PO TID PRN for ABDOMINAL PAIN, (Reported) TAKES A TID SCHEDULED MED Hydrocodone/Acetaminophen ([place] 10-325 Tablet) 1 Tab Tab, 1 TAB PO Q6H PRN for PAIN, (Reported) Nitroglycerin (Nitroglycerin) 0.4 Mg Sub, 0.4 MG SL NITRO PRN for CHEST PAIN, (Reported) Allergies Coded Allergies: lisinopril (Verified Allergy, Severe, angioedema lip, 12/06/19) angioedema lip latex (Verified Allergy, Intermediate, RASH/ITCHING, 12/06/19) codeine (Verified Adverse Reaction, Mild, HEADACHE, 12/06/19) oxycodone (Verified Adverse Reaction, Mild, CONFUSION, 12/06/19) LIZY RAY MD Jan 11, 2020 17:47
== END 2020-01-11 14:30 | disposition home or self-care (01) | DRG 884 ==
LOC: EDBD 01:19 → M ED 01:19 → EDUNIT# 01:19 → M ED INP 02:02 → ENRESERV 02:49 → M MSPAV 03:31
PROVIDERS: ADMIT Internal Medicine; ATTEND Internal Medicine Nephrology
DX: R54 Age-related physical debility (principal); J96.11 Chronic respiratory failure with hypoxia; N18.4 Chronic kidney disease, stage 4 (severe); Z68.42 Body mass index [BMI] 45.0-49.9, adult; R91.1 Solitary pulmonary nodule; R29.6 Repeated falls; I48.0 Paroxysmal atrial fibrillation; I12.9 Hypertensive chronic kidney disease with stage 1 through stage 4 chronic kidney disease, or unspecified chronic kidney disease; J44.9 Chronic obstructive pulmonary disease, unspecified; G47.33 Obstructive sleep apnea (adult) (pediatric); F17.200 Nicotine dependence, unspecified, uncomplicated; Z79.82 Long term (current) use of aspirin; Z79.4 Long term (current) use of insulin; Z79.899 Other long term (current) drug therapy; Z88.5 Allergy status to narcotic agent; Z88.8 Allergy status to other drugs, medicaments and biological substances; Z91.040 Latex allergy status; E66.01 Morbid (severe) obesity due to excess calories; I25.10 Atherosclerotic heart disease of native coronary artery without angina pectoris; I35.0 Nonrheumatic aortic (valve) stenosis; Z99.81 Dependence on supplemental oxygen; E11.29 Type 2 diabetes mellitus with other diabetic kidney complication; K21.9 Gastro-esophageal reflux disease without esophagitis; Z91.19 Patient's noncompliance with other medical treatment and regimen; L30.4 Erythema intertrigo; E78.5 Hyperlipidemia, unspecified; E11.51 Type 2 diabetes mellitus with diabetic peripheral angiopathy without gangrene

== ENCOUNTER 2020-01-11 10:15 | Inpatient (IN) | payer MEDICARE ==
[~2020-01-11] VITALS: Ht 152.4 cm; Wt 111.6 kg
[~2020-01-11 10:15] MED LIST changes: +AMPI500C9 PO; +IPRA0.00 NEB
[2020-01-11] MEDS ORDERED: NITROGLYCERIN 0.4 MG SUBL TABLET SL PRN (12:00)
[2020-01-11] MEDS ORDERED: BISACODYL 10 MG SUPP PR PRN (12:00)
[2020-01-11] MEDS ORDERED: GLUCOSE 4GM CHEW TABLET PO PRN (12:00)
[2020-01-11] MEDS ORDERED: SIMETHICONE 80 MG CHEW TAB PO PRN (12:00)
[2020-01-11] MEDS ORDERED: MAALOX 30 ML SUSP *UDC PO PRN (12:00)
[2020-01-11] MEDS ORDERED: DEXTROSE 50% 50 ML SYRINGE IV PRN (12:00)
[2020-01-11] MEDS ORDERED: ALBUTEROL 90 MCG/ACT 8GM HFA INHALER INH PRN (12:00)
[2020-01-11] MEDS ORDERED: GLUCAGON INJ 1MG VIAL SC PRN (12:00)
[2020-01-11 15:29] VITALS: BP 150/75
[2020-01-11] MEDS ORDERED: PILL CUTTER 1 EACH XX PRN (15:45)
[2020-01-11] MEDS ORDERED: GABAPENTIN 100 MG CAP PO SCH (16:00)
[2020-01-11] MEDS: LACTOBACILLUS ACIDOPHILUS CAP (BACID) PO SCH (17:25)
[2020-01-11] MEDS: SUCRALFATE 1 GM TAB PO SCH ×2 (17:25→21:42)
[2020-01-11] MEDS: HEPARIN SOD (PORCINE) 5000UNITS/ML VIAL (J1644 PER 1000UNITS) SC SCH ×2 (17:25→21:44)
[2020-01-11] MEDS: amLODIPine 5 MG TAB PO SCH (17:26)
[2020-01-11] MEDS: TORSEMIDE 20 MG TAB PO SCH (17:26)
[2020-01-11] MEDS: PREGABALIN 75 MG CAP(LYRICA) PO SCH ×2 (17:26→21:42)
[2020-01-11] MEDS: ACETAMINOPHEN 500 MG TAB PO SCH ×2 (17:27→21:42)
[2020-01-11] MEDS: REMEDY PHYTOPLEX Z-GUARD PASTE 113GM TUBE (FROM STOREROOM PRODUCT) TOP SCH ×2 (17:27→21:43)
[2020-01-11] MEDS: HumaLOG INSULIN (NovoLOG) PER UNIT SC SCH ×2 (17:28→21:45)
[2020-01-11] MEDS ORDERED: LevoFLOXacin 500 MG TABLET PO SCH (18:00)
[2020-01-11] MEDS: IPRATROPIUM 0.5MG/ALBUTEROL 2.5MG INH SOL UD 3ML (DUONEB)(J7620) NEB SCH (20:20)
[2020-01-11 21:40] VITALS: BP 151/70
[2020-01-11] MEDS: DOCUSATE SODIUM 100 MG CAP PO SCH (21:42)
[2020-01-11] MEDS: SENNA 8.6 MG TAB (SENOKOT) PO SCH (21:42)
[2020-01-11] MEDS: ROSUVASTATIN 10 MG TAB (CRESTOR) PO SCH (21:42)
[2020-01-11] MEDS: KETOCONAZOLE 2% CREAM TOP SCH (21:43)
[2020-01-11] MEDS: NYSTATIN 100,000 UNITS/GM TOPICAL PWD 15 GM TOP SCH (21:43)
[2020-01-11] MEDS: LEVEMIR (INSULIN DETEMIR) 1 UNITS/0.01ML SC SCH (21:46)
[2020-01-12] MEDS: HEPARIN SOD (PORCINE) 5000UNITS/ML VIAL (J1644 PER 1000UNITS) SC SCH ×3 (05:46→21:00)
[2020-01-12 06:00] VITALS: BP 155/67
[2020-01-12] MEDS ORDERED: LevoFLOXacin 500 MG TABLET PO SCH (06:00)
[2020-01-12 06:02] LABS: BASO % 0.3 % (0.0-1.0); EOS # 0.2 10^3/uL (0.0-0.5); EOS % 3.4 % (0.0-3.0); HEMATOCRIT 35.6 % (36.0-47.0); HEMOGLOBIN 10.5 g/dl (12.0-15.5); LYMPH # 1.9 10^3/uL (1.5-5.0); LYMPH % 27.1 % (24.0-44.0); MEAN CORPUSCULAR HEMOGLOBIN 26.9 pg (27.0-33.0); MEAN CORPUSCULAR HGB CONC 29.5 g/dl (32.0-36.5); MEAN CORPUSCULAR VOLUME 91.3 fl (80.0-96.0); MONO # 1.3 10^3/uL (0.0-0.8); NEUTROPHILS # 3.6 10^3/uL (1.5-8.5); NEUTROPHILS % 50.8 % (36.0-66.0); PLATELET COUNT, AUTOMATED 155 10^3/uL (150-450)
[2020-01-12 06:33] LABS: BILIRUBIN,TOTAL 0.5 MG/DL (0.2-1.0); CALCIUM LEVEL 9.4 MG/DL (8.8-10.2); CREATININE FOR GFR 1.88 MG/DL (0.55-1.30); GLOMERULAR FILTRATION RATE 27.6 (>39); POTASSIUM SERUM 4.4 MEQ/L (3.5-5.1); TOTAL PROTEIN 6.5 GM/DL (6.4-8.2)
[2020-01-12] MEDS: IPRATROPIUM 0.5MG/ALBUTEROL 2.5MG INH SOL UD 3ML (DUONEB)(J7620) NEB SCH ×3 (07:26→19:02)
[2020-01-12] MEDS: PANTOPRAZOLE 40MG TAB (PROTONIX) PO SCH (07:55)
[2020-01-12] MEDS: PREGABALIN 75 MG CAP(LYRICA) PO SCH ×2 (07:55→20:54)
[2020-01-12] MEDS: ISOSORBIDE MON. (IMDUR) 30 MG XR TAB PO SCH (07:55)
[2020-01-12] MEDS: ASPIRIN 81 MG ENTERIC TAB PO SCH (07:55)
[2020-01-12] MEDS: ACETAMINOPHEN 500 MG TAB PO SCH ×3 (07:55→20:54)
[2020-01-12] MEDS: LACTOBACILLUS ACIDOPHILUS CAP (BACID) PO SCH ×3 (07:55→17:23)
[2020-01-12] MEDS: allopurinoL 100 MG TAB PO SCH (07:56)
[2020-01-12] MEDS: SUCRALFATE 1 GM TAB PO SCH ×4 (07:56→20:56)
[2020-01-12] MEDS: amLODIPine 5 MG TAB PO SCH (07:56)
[2020-01-12] MEDS: CALCITRIOL 0.25 MCG CAP (S0169) PO SCH (07:56)
[2020-01-12] MEDS: DOCUSATE SODIUM 100 MG CAP PO SCH ×2 (07:56→20:55)
[2020-01-12] MEDS: TORSEMIDE 20 MG TAB PO SCH ×2 (07:56→17:23)
[2020-01-12] MEDS: REMEDY PHYTOPLEX Z-GUARD PASTE 113GM TUBE (FROM STOREROOM PRODUCT) TOP SCH ×3 (07:57→20:58)
[2020-01-12] MEDS: KETOCONAZOLE 2% CREAM TOP SCH ×2 (07:57→20:59)
[2020-01-12] MEDS: NYSTATIN 100,000 UNITS/GM TOPICAL PWD 15 GM TOP SCH ×2 (07:57→20:58)
[2020-01-12] MEDS: HumaLOG INSULIN (NovoLOG) PER UNIT SC SCH ×4 (07:58→21:05)
[2020-01-12] MEDS: LEVEMIR (INSULIN DETEMIR) 1 UNITS/0.01ML SC SCH ×2 (07:58→20:53)
[2020-01-12] MEDS: traMADol 50 MG TAB PO PRN ×2 (10:25→18:52)
--- NOTE | 2020-01-12 10:41 | HPEPDOC ---
Handling Tech Note DATE OF ADMISSION: 01-11-20 DATE OF SERVICE: 01-11-20 TIME OF ADMISSION: Please refer to physician's admission order. SOURCE OF ADMISSION INFORMATION: [facility] record and patient CHIEF COMPLAINT:falls in setting of peripheral polyneuropathy HISTORY OF PRESENT ILLNESS: 79F pmh obesity, COPD on home 02, HTN, DM with peripheral polyneuropathy, HOWARD non-compliant with CPAP, CKD4, HLD who presented to [facility] ED on 01-08-20 following a mechanical fall at home where her right leg gave out and she fell, hitting her head. On initial eval patient complained of right knee pain, but decided to return home without receiving further care. She presented back to the hospital the following day 01-09-20 stating she is unable to care for herself with her leg pain and weakness. CTH was negative for acute pathology and lower extremity imaging was also negative for fractures. She was diuresed due to significant edema and her kidney function remained at baseline. She received Veltassa for hyperkalemia and evaluated by therapy where she was found to have gait and mob ility impairments. She was deemed medically appropriate for discharge to ARU on 01-11-20. REVIEW OF SYSTEMS: The following is a completed review of systems and has been reviewed. Review of systems otherwise unremarkable. PAIN: Patient self reports right knee pain EYES: No recent vision changes EARS, NOSE, & THROAT: No throat pain, or dysphagia, or rhinorrhea CARDIOVASCULAR: Denies chest pain or palpitations PULMONARY: + shortness of breath with exertion (chronic), +chronic cough GASTROINTESTINAL: Denies constipation/diarrhea GENITOURINARY: denies dysuria MUSCULOSKELETAL: generalized weakness NEUROLOGICAL:+peripheral polyneuropathy HEMATOLOGICAL: denies easy bruising SKIN: scattered hyperkeratotic lesions PSYCHIATRIC: Unremarkable All other review of systems found to be negative. PAST MEDICAL HISTORY: as per HPI PAST SURGICAL HISTORY: Bilat knee arthroscopy, bilat shoulder surgery, x4 ALLERGIES: Please see below. MEDICATIONS: Please see below. SOCIAL HISTORY:+smoker, no etoh/illicit drugs DIET: consistent carb, fluid restrict, low sodium PHYSICAL EXAMINATION: VITAL SIGNS: Please see below. GENERAL: Pleasant and cooperative. No acute distress. morbidly obese HEENT: PERRL. Extraocular movements intact. Clear conjunctiva CARDIOVASCULAR: Regular rate and rhythm. No murmurs, rubs, or gallops LUNGS: No wheezes. +scattered rhonchi ABDOMEN: Soft, nontender, nondistended. Positive bowel sounds. Normal active bowel sounds NEUROLOGICAL: Alert and oriented times three. Cranial nerves II through XII grossly intact. Sensation to light touch diminished in stocking/glove pattern -bilat intention tremor EXTREMITIES: 5\\5 strength bilateral upper extremities. 5-\\5 strength right lower extremity. 5-/5 strength in left lower extremity. +TTP medial right knee +bilat LE edema SKIN: scattered hyper-keratotic lesions on all limbs LABORATORY DATA: Please see below. IMAGING:Imaging documentation personally reviewed by record FUNCTIONAL STATUS: Premorbid: Mod-Independent with all activities of daily life as well as mobility On Admission: Contact guard-Min assist ambulating 10 feet, functional transfers, and toileting GOALS: Mod-I household distances, functional transfers, toileting, bathing, dressing, dynamic balance training, fall recovery, medical optimization, assess for DME needs ASSESSMENT:79-year-old F with past medical history of COPD who presents status post falls in setting of peripheral polyneuropathy PLAN: 1. rehab- PT/OT advance gait and ADL training, fall recovery, dynamic balance, energy conservation techniques, stretch/strengthen/maintain ROM all 4 limbs 2. Neuro: patient with significant peripheral polyneuropathy in setting of poorly controlled DM, optimize DM management -patient noted to have bilateral intentional tremor on exam which she reports has been getting worse-patient on non-renally dosed Gabapentin, will d/c as this may side effect of gabapentin toxicity -patient also on too high dose of Lyrica, will discuss with renal about cutting back 3. Cardiac: hx of HTN with diastolic CHF c/u BP meds, discussed with hospitalist increasing Torsemide dosing to 40mg BID due to fluid overloaded status, will consult renal to assist with fluid management in setting of CKD4, daily weights and fluid restrict -HLD- c/u statin -medicine consulted to assist with overall management 4. Resp:hx of HOWARD non-compliant with CPAP, COPD on home , c/u 02 goal 88-92% -c/u breathing treatments, monitor for infection -recent CT showin, "new 1 cm nodular density in the left lung apex." will need f/u Chest CT and PMD follow-up -patient son had Covid exposure, he is asymptomatic, and patient reports exposure to son- per Infection control recs staff to wear masks and check Temp BID, monitor for sx-patient not exhibiting signs of any infection at this time 5. Renal: CKD4 will consult renal to assist with fluid management 6. GI ppx: protonix 7. DVT ppx: heparin and TEDs 8. Pain: lidoderm patch to right knee, Tylenol standing and tramadol prn 9. Dispo: TBD POST ADMISSION PHYSICIAN EVALUATION: Medical and functional status: Description of medical status, medical assessment: As above. Rehabilitation diagnosis and current and prior cold morbid medical conditions as above. Risk of complications and plans to mitigate them as above. Description of functional status current status is as above. Prior status as above. Status compared to preadmission: There are no clinically significant differences between the patient's current status and the information described on the preadmission screening document. Treatment plan anticipated: Treatment plan is as described above. Required disciplines including physical therapy, occupational therapy, others as noted above. Intensity of services: 3 hours a day, 6 days a week. Special considerations: There are no specific special or safety considerations that would likely preclude immediate implementation of an intensive rehabilitation program or subsequently influence the plan of care. ATTESTATION: Considering all the information above, it is my best judgment that this patient requires intensive rehabilitation therapy as described above and an inpatient hospital environment due to the complexity of nursing, medical, and rehabilitation needs required by the patient. Furthermore, this patient can reasonably be expected to participate in an benefit from an inpatient rehabilitation stay with an interdisciplinary team approach to the delivery of rehabilitation care under the direction and supervision of rehabilitation physician. PROGNOSIS: good ESTIMATED LENGTH OF STAY:7-10 days. PROJECTED DISCHARGE DESTINATION: Home with family support and any durable medica l equipment required to increase functional safety and mobility. TIME SPENT COUNSELING AND COORDINATING INITIAL CARE: Greater than 70 minutes. Vital Signs Vital Sign - Last 24 Hours 01/11/20 01/11/20 01/11/20 01/11/20 15:29 17:26 21:00 21:40 Temp 98.8 97.8 Pulse 67 67 72 Resp 22 20 B/P (MAP) 150/75 (100) 142/75 151/70 (97) Pulse Ox 95 93 O2 Delivery Nasal Cannula Nasal Cannula O2 Flow Rate 3.0 3.0 3.0 01/12/20 01/12/20 06:00 07:55 Temp 97.3 Pulse 63 Resp 22 B/P (MAP) 155/67 (96) 155/67 Pulse Ox 98 O2 Delivery Nasal Cannula O2 Flow Rate 3.0 Laboratory Data CBC/BMP Laboratory Tests 01/12/20 05:36 Labs 24H Laboratory Tests 2 01/11/20 20:37: Bedside Glucose (Misc Panel) 348H 01/12/20 05:36: Immature Granulocyte % (Auto) 0.4, Neutrophils (%) (Auto) 50.8, Lymphocytes (%) (Auto) 27.1, Monocytes (%) (Auto) 18.0H, Eosinophils (%) (Auto) 3.4H, Basophils (%) (Auto) 0.3, Neutrophils # (Auto) 3.6, Lymphocytes # (Auto) 1.9, Monocytes # (Auto) 1.3H, Eosinophils # (Auto) 0.2, Basophils # (Auto) 0.0, Nucleated Red Bl ood Cells % (auto) 0.0, Anion Gap 0L, Glomerular Filtration Rate 27.6L, Calcium Level 9.4, Total Bilirubin 0.5, Aspartate Amino Transf (AST/SGOT) 9, Alanine Aminotransferase (ALT/SGPT) 15, Alkaline Phosphatase 82, Total Protein 6.5, Albumin 3.0L, Albumin/Globulin Ratio 0.86L FSBS Laboratory Tests Test 01/11/20 20:37 Range/Units Bedside Glucose (Misc Panel) 348 83-110 MG/DL Home Medications Scheduled Allopurinol (Allopurinol) 100 Mg Tab, 100 MG PO DAILY, (Reported) Amlodipine Besylate (Amlodipine Besylate) 5 Mg Tablet, 1 TAB PO DAILY Ampicillin Trihydrate (Ampicillin Trihydrate) 500 Mg Capsule, 500 MG PO QID Aspirin (Aspir 81) 81 Mg Tab, 81 MG PO DAILY, (Reported) Calcitriol (Rocaltrol) 0.25 Mcg Capsule, 0.5 MCG PO DAILY, (Reported) Gabapentin (Gabapentin) 100 Mg Capsule, 200 MG PO TID, (Reported) Insulin Aspart (Novolog Flexpen) 100 Unit/1 Ml Insuln.pen, 10 UNITS SC BID, (Reported) Insulin Degludec (Tresiba Flextouch U-100) 100 Unit/Ml Inj, 60 UNIT SC DAILY Ipratropium/Albuterol Sulfate (Iprat-Albut 0.5-3(2.5) mg/3 ml) 3 Ml Ampul.neb, 3 ML NEB RQ8H Isosorbide Mononitrate (Isosorbide Mononitrate ER) 30 Mg Tab, 30 MG PO DAILY, (Reported) Ketoconazole (Ketoconazole) 15 Gm Cream..g., 1 APPLIC TOP BID, (Reported) APPLY TO BOTH FEET Nystatin (Nyamyc) 15 Gm Powder, 1 APPLIC TOP BID, (Reported) UNDER BREASTS AND ABDOMINAL FOLDS Pantoprazole Sodium (Pantoprazole Sodium) 40 Mg Tablet.dr, 40 MG PO DAILY, (Reported) Pregabalin (Lyrica) 75 Mg Capsule, 75 MG PO TID, (Reported) Rosuvastatin Calcium (Crestor) 20 Mg Tab, 20 MG PO QHS, (Reported) Sucralfate (Carafate) 1 Gm Tablet, 1 GM PO QID, (Reported) Torsemide (Torsemide) 20 Mg Tablet, 50 MG PO DAILY, (Reported) Scheduled PRN Albuterol Sulfate (Albuterol Sulfate) 2.5 Mg/0.5 Ml Neb, 2.5 MG INH Q4H PRN for SHORTNESS OF BREATH, (Reported) Dicyclomine HCl (Dicyclomine HCl) 10 Mg Capsule, 10 MG PO TID PRN for ABDOMINAL PAIN, (Reported) TAKES A TID SCHEDULED MED Hydrocodone/Acetaminophen ([place] 10-325 Tablet) 1 Tab Tab, 1 TAB PO Q6H PRN for PAIN, (Reported) Nitroglycerin (Nitroglycerin) 0.4 Mg Sub, 0.4 MG SL NITRO PRN for CHEST PAIN, (Reported) Allergies Coded Allergies: lisinopril (Verified Allergy, Severe, angioedema lip, 12/06/19) angioedema lip latex (Verified Allergy, Intermediate, RASH/ITCHING, 12/06/19) codeine (Verified Adverse Reaction, Mild, HEADACHE, 12/06/19) oxycodone (Verified Adverse Reaction, Mild, CONFUSION, 12/06/19) A-FIB/CHADSVASC A-FIB History Current/History of A-Fib/PAF?: No DANA AGUIAR MD Jan 12, 2020 10:41
[2020-01-12] MEDS: NICOTINE 7 MG/24 HR TRANSDERMAL TD SCH (12:19)
[2020-01-12] MEDS: LIDOCAINE 5% (LIDODERM) PATCH TD SCH (12:19)
--- NOTE | 2020-01-12 16:35 | IPNPDOC ---
Text Note Date of Service The patient was seen on 01/12/20. NOTE HOSPITALIST PROGRESS NOTE S: Pt examined at bedside. Feels well and no complaints besides weak in LE when ambulating. Working with PT. No cp, sob, n/v/abd pain. PE: Vitals: see below General: NAD, A&Ox3, sitting comfortably HEENT: NCAT, EOMI, anicteric sclera, MMM CV: RRR, no murmurs or clicks or rub. 2+ edema right LE, 1+ left LE RESP: rhonchi throughout on baseline 3L NC. No r/r or accessory muscle use ABD: soft, NT, ND. Benign EXTREMITIES: able to move all extremities, bandage on right knee NEURO: no focal deficits; follows commands; has peripheral neuropathy A/P: 79 yo F admitted to ARU after hospitalized for recurrent falls and debility, most recently January 08-. Lives alone at home and noted to be unstable on feet, requiring assistance. Hospitalist consulted for medical management. 1. Recurrent falls and debility - Continue rehabilitation and place on fall precautions - Her neuropathy is contributory; will need better diabetic control and monitoring - Ambien stopped on recent discharge. Limit pain meds if needed - Continue Lyrica for neuropathy 2. IDDM2 with neuroapthy - continue on Insulin with ac/hs coverage. Controlled currently - pt dwaine need better sugar control long term - Lyrica for neuropathy 3. Grade 1 diastolic dysfxn - EF 75% 09/2019 - continue on Torsemide - LE edema noted, r>l. US 01/10/20 neg for dvt - monitor and will consider increasing diuretics if needed - currently no other signs of vol overload 4. UTI - per recent UA 4/5 +E Faecalis and pt was reportedly having dysuria then - UA 2+ leuk esterase, 53 WBC, 1+ bacteria - feeling well now. Afebrile, no leukocytosis. Has been started on Levaquin by PMR, which aligns per sensitivity - given her elderly age and high risks with Flouroquinolones in this population, and sensitive to penicillin, recommend switch to amoxicillin 5. CKD stage 4 - stable, nephro has been consulted by PMR - on calcitriol & allopurinol 6. COPD baseline 3L NC - Stable at baseline, no exacerbation. Continue nebs per home routine 7. HOWARD noncompliant with CPAP - Monitor for desat. Maintain 88-92%. 8. HLD - on ASA statin. Stable without cardiac complaints 9. Insomnia. - On ambien long term 10. Morbid obesity with BMI 47 - complicates care. Will require long term lifestyle changes 11. HTN controlled on Amlodipine, imdur, 12. GERD - continue PPI & carafate DVT ppx: heparin per PMR DISPO: Hospitalist will continue following along. Please contact for any questions. VS,Fishbone, I+O VS, Fishbone, I+O Laboratory Tests 01/12/20 05:36 Vital Signs Date Time Temp Pulse Resp B/P (MAP) Pulse Ox O2 Delivery O2 Flow Rate FiO2 01/12/20 14:00 97.5 69 20 95 Nasal Cannula 3.0 01/12/20 07:55 155/67 l I&O- Last 24 Hours up to 6 AM 01/12/20 06:00 Intake Total 1100 ml Balance 1100 ml GME ATTESTATION GME ATTESTATION My faculty preceptor for this patient encounter was physically present during the encounter and was fully available. All aspects of the patient interview, examination, medical decision making process, and medical care plan development were reviewed and approved by the faculty preceptor. The faculty preceptor is aw are and concurs with the plan as stated in the body of this note and will attest to such by his/her cosignature. ATTENDING NOTE I, Noé Mccallum, have independently examined this patient and performed my own physical exam, as well as reviewed the documentation and edited where necessary. I have discussed in detail with the resident / student the findings and plan of treatment as documented by the resident / student and edited their note. I agree with their findings and treatment plan and have edited their documentation. I will continue to follow the patient during this hospital stay. PAYAM ALVARES DO Jan 12, 2020 16:35 NOÉ MCCALLUM MD Jan 12, 2020 17:34
--- NOTE | 2020-01-12 18:03 | CR ---
DATE OF CONSULTATION: 01/12/2020 REASON FOR CONSULTATION: Shortness of breath, leg edema, and stage IV of chronic kidney disease. HISTORY OF PRESENT ILLNESS: Mrs. Falcon is a 75-year-old female with multiple chronic medical problems, including a long history of diabetes, hypertension, chronic obstructive pulmonary disease (COPD), on home oxygen, morbid obesity, peripheral neuropathy, obstructive sleep apnea, and hyperlipidemia. Her baseline serum creatinine is about 2.0. She was admitted to [facility] with recurrent falls and weakness of lower extremities. She is now admitted to acute rehabilitation for the same reason. Her creatinine has been up to about 2.1 mg/dL. She does have significant lower extremity edema and is being diuresed. Nephrology consultation was requested today, and the patient is seen this afternoon. PAST MEDICAL HISTORY: Significant for multiple chronic medical problems includin. Type 2 diabetes. 2. Hypertension. 3. COPD. 4. Obstructive sleep apnea. 5. Peripheral neuropathy. 6. Hyperlipidemia. 7. Stage IV of chronic kidney disease. PAST SURGICAL HISTORY: Significant for: 1. Bilateral knee arthroscopy. 2. Bilateral shoulder surgery. 3. Four sections in the past. ALLERGIES: The patient has allergy to LISINOPRIL, CODEINE, OXYCODONE, and LASIX. HOME MEDICATIONS: - allopurinol 100 mg daily - amlodipine 5 mg daily - aspirin 81 mg daily - calcitriol 0.25 mcg two capsules daily - gabapentin 200 mg three times a day - DuoNeb three times a day - Imdur 30 mg daily - pantoprazole 40 mg daily - Crestor 20 mg daily - Carafate 1 gram four times a day - torsemide 50 mg twice a day PERSONAL AND SOCIAL HISTORY: The patient is a smoker and has no drug or alcohol use history. FAMILY HISTORY: Noncontributory. REVIEW OF SYSTEMS: The patient is short of breath and has been on chronic home oxygen. She reports frequent falls at home and injury to her right knee due to recent fall. She could not get up after a fall and had to call ambulance. She denies any fever or chills. Ears, nose, and throat are unremarkable. Cardiovascular system is significant for chronic leg edema and shortness of breath. She has diastolic congestive heart failure. Respiratory system significant for COPD and obstructive sleep apnea. She has been on home oxygen. Gastrointestinal (GI) system negative for nausea, vomiting, or diarrhea. Genitourinary () system is negative for dysuria or hematuria. Endocrine system is significant for type 2 diabetes and hyperlipidemia. Musculoskeletal system is significant for chronic degenerative arthritis, history of gout, peripheral neuropathy, and lower extremity edema. She also has difficulty ambulating. Neurological system is significant for peripheral neuropathy and generalized weakness. Psychosocial system negative for depression or anxiety. Skin is negative for rash or ulcers. Hematological system is negative for any long-term anticoagulation. PHYSICAL EXAMINATION: The patient is awake and alert at the time of my visit. She is sitting in the chair. Temperature 97.5 degrees Fahrenheit, heart rate 68 per minute, respiratory rate 20 per minute, blood pressure 155/67 mm of mercury, and oxygen saturation 95% on 3 liters oxygen. Head is atraumatic. Neck supple, and jugular venous distention (JVD) seems to be elevated even sitting upright. Lungs have diminished breath sounds and mild expiratory wheezing. Heart sounds are regular and without a pericardial friction rub. Abdomen is obese, soft, and nontender, and bowel sounds are normal. Extremities without any cyanosis or clubbing. Lower extremity edema is 2+. She has a dressing on her right knee. Neurologically, she is awake, alert, and at her baseline mentation. LABORATORY DATA: Today's labs show WBC count 7.0, hemoglobin 10.5, and hematocrit 35.6. Platelets 155. Sodium 136, potassium 4.4, CO2 of 37, BUN 62, and creatinine 1.88. Glucose 131 and calcium 9.4. Total protein 6.5 and albumin 3.0. PROBLEMS: 1. Acute on chronic congestive heart failure. Her volume status seems to be clinically decompensated, and I have checked her outpatient torsemide dose, which was 50 mg twice a day. I agree with the current dose of 40 mg twice a day, and we may have to increase it further as needed. She should remain on fluid restriction of about 1600 mL per day, and intake and output and daily weights should be monitored closely. 2. Hypertension. So far, her blood pressure seems reasonably well controlled with amlodipine 5 mg daily and diuretic. I would consider to stop her amlodipine due to risk of causing leg edema if her blood pressure improves with adequate diuresis. 3. Peripheral neuropathy. The patient has been using gabapentin and Lyrica. I feel that with stage her IV chronic kidney disease, we will have to use dose adjustment. Lyrica to 75 mg twice a day would be adequate dose. She would have risk for toxicity and tremors with higher doses of gabapentin and Lyrica. 4. Anemia, most likely anemia of chronic kidney disease. We will check her iron studies. No urgent intervention is indicated at this point. 5. Gout. She does have history of gout and has been on allopurinol as an outpatient. She is currently on 100 mg allopurinol daily, and we will need to monitor closely as she is being diuresed. There is risk for acute gout due to aggressive diuresis. 6. Hyperparathyroidism. She has known history of secondary hyperparathyroidism and has been on calcitriol 0.5 mcg daily. We will check her intact parathyroid hormone (PTH) level. 7. Chronic kidney disease. She has known history of stage IV of chronic kidney disease, and so far her kidney function seems to be at about baseline. Will need to monitor it closely as she is being diuresed. Thank you for involving me in the care of Mrs. Falcon. I will follow her along with you.
[2020-01-12] MEDS: traZODone 25MG PER 1/2 TABLET PO SCH (20:53)
[2020-01-12] MEDS: AMOXICILLIN 500 MG CAP PO SCH (20:53)
[2020-01-12] MEDS: ROSUVASTATIN 10 MG TAB (CRESTOR) PO SCH (20:54)
[2020-01-12] MEDS: SENNA 8.6 MG TAB (SENOKOT) PO SCH (20:56)
[2020-01-12] MEDS: **NOTE PATIENT COMMENT** MISC XX SCH (20:57)
[2020-01-12 22:00] VITALS: BP 195/84
[2020-01-12 22:10] VITALS: BP 168/64
[2020-01-13 06:00] VITALS: BP_SYST 181; BP_SYST 195; BP_DIAS 77; BP_DIAS 84
[2020-01-13 06:05] VITALS: BP 178/70
[2020-01-13] MEDS: HEPARIN SOD (PORCINE) 5000UNITS/ML VIAL (J1644 PER 1000UNITS) SC SCH ×3 (06:22→21:10)
[2020-01-13] MEDS: traMADol 50 MG TAB PO PRN ×2 (06:28→14:49)
[2020-01-13] MEDS: amLODIPine 5 MG TAB PO SCH ×2 (06:46→21:09)
[2020-01-13 06:54] LABS: PERCENT SATURATION 14.7 % (13.2-45.0); URIC ACID 5.3 MG/DL (2.6-6.0)
[2020-01-13] MEDS: IPRATROPIUM 0.5MG/ALBUTEROL 2.5MG INH SOL UD 3ML (DUONEB)(J7620) NEB SCH ×3 (07:45→19:51)
[2020-01-13 08:18] LABS: ALBUMIN 3.3 GM/DL (3.2-5.2); CALCIUM LEVEL 9.5 MG/DL (8.8-10.2); CREATININE FOR GFR 2.08 MG/DL (0.55-1.30); GLOMERULAR FILTRATION RATE 24.5 (>39); PHOSPHORUS LEVEL 5.2 MG/DL (2.5-4.9); POTASSIUM SERUM 4.9 MEQ/L (3.5-5.1)
[2020-01-13] MEDS: PANTOPRAZOLE 40MG TAB (PROTONIX) PO SCH (08:55)
[2020-01-13] MEDS: allopurinoL 100 MG TAB PO SCH (08:55)
[2020-01-13] MEDS: AMOXICILLIN 500 MG CAP PO SCH ×2 (08:55→21:08)
[2020-01-13] MEDS: LIDOCAINE 5% (LIDODERM) PATCH TD SCH (08:56)
[2020-01-13] MEDS: TORSEMIDE 20 MG TAB PO SCH ×2 (08:56→17:25)
[2020-01-13] MEDS: PREGABALIN 75 MG CAP(LYRICA) PO SCH ×2 (08:56→21:08)
[2020-01-13] MEDS: ACETAMINOPHEN 500 MG TAB PO SCH ×3 (08:56→21:09)
[2020-01-13] MEDS: CALCITRIOL 0.25 MCG CAP (S0169) PO SCH (08:56)
[2020-01-13] MEDS: ASPIRIN 81 MG ENTERIC TAB PO SCH (08:57)
[2020-01-13] MEDS: ISOSORBIDE MON. (IMDUR) 30 MG XR TAB PO SCH (08:57)
[2020-01-13] MEDS: SUCRALFATE 1 GM TAB PO SCH ×4 (08:57→21:09)
[2020-01-13] MEDS: NICOTINE 7 MG/24 HR TRANSDERMAL TD SCH (08:57)
[2020-01-13] MEDS: DOCUSATE SODIUM 100 MG CAP PO SCH ×2 (08:57→21:00)
[2020-01-13] MEDS: LACTOBACILLUS ACIDOPHILUS CAP (BACID) PO SCH ×3 (08:57→17:24)
[2020-01-13] MEDS: LEVEMIR (INSULIN DETEMIR) 1 UNITS/0.01ML SC SCH ×2 (08:58→21:10)
[2020-01-13] MEDS: HumaLOG INSULIN (NovoLOG) PER UNIT SC SCH ×4 (08:59→21:11)
[2020-01-13] MEDS: KETOCONAZOLE 2% CREAM TOP SCH ×2 (09:00→21:12)
[2020-01-13] MEDS: NYSTATIN 100,000 UNITS/GM TOPICAL PWD 15 GM TOP SCH ×2 (09:00→21:12)
[2020-01-13] MEDS: REMEDY PHYTOPLEX Z-GUARD PASTE 113GM TUBE (FROM STOREROOM PRODUCT) TOP SCH ×3 (09:00→21:11)
--- NOTE | 2020-01-13 09:55 | IPNPDOC ---
PM&R Progress Note DATE OF SERVICE: Jan 13, 2020 Experiential Therapist Progress Note Subjective: Patient reports she is glad she decided to stay as she feels she does need therapy. She reports her cough is chronic and not getting any worse. Her family is purchasing a hospital bed. REVIEW OF SYSTEMS: The following is a completed review of systems and has been reviewed. Review of systems otherwise unremarkable. PAIN: Patient self reports right knee pain EYES: No recent vision changes EARS, NOSE, & THROAT: No throat pain, or dysphagia, or rhinorrhea CARDIOVASCULAR: Denies chest pain or palpitations PULMONARY: + shortness of breath with exertion (chronic), +chronic cough GASTROINTESTINAL: Denies constipation/diarrhea GENITOURINARY: denies dysuria MUSCULOSKELETAL: generalized weakness NEUROLOGICAL:+peripheral polyneuropathy HEMATOLOGICAL: denies easy bruising SKIN: scattered hyperkeratotic lesions PSYCHIATRIC: Unremarkable All other review of systems found to be negative. PHYSICAL EXAMINATION: VITAL SIGNS: Please see below. GENERAL: Pleasant and cooperative. No acute distress. morbidly obese HEENT: PERRL. Extraocular movements intact. Clear conjunctiva CARDIOVASCULAR: Regular rate and rhythm. No murmurs, rubs, or gallops LUNGS: No wheezes. +scattered rhonchi ABDOMEN: Soft, nontender, nondistended. Positive bowel sounds. Normal active bowel sounds NEUROLOGICAL: Alert and oriented times three. Cranial nerves II through XII anabel sly intact. Sensation to light touch diminished in stocking/glove pattern -bilat intention tremor EXTREMITIES: 5\\5 strength bilateral upper extremities. 5-\\5 strength right lower extremity. 5-/5 strength in left lower extremity. +TTP medial right knee +bilat LE edema SKIN: scattered hyper-keratotic lesions on all limbs ASSESSMENT:79-year-old F with past medical history of COPD who presents status post falls in setting of peripheral polyneuropathy PLAN: 1. rehab- PT/OT advance gait and ADL training, fall recovery, dynamic balance, energy conservation techniques, stretch/strengthen/maintain ROM all 4 limbs 2. Neuro: patient with significant peripheral polyneuropathy in setting of poorly controlled DM, optimize DM management -patient noted to have bilateral intentional tremor on exam which she reports has been getting worse-patient on non-renally dosed Gabapentin, will d/c as this may side effect of gabapentin toxicity -patient also on too high dose of Lyrica, will discuss with renal about cutting back 3. Cardiac: hx of HTN with diastolic CHF c/u BP meds, discussed with hospitalist increasing Torsemide dosing to 40mg BID due to fluid overloaded status, renal consulted to to assist with fluid management in setting of CKD4, daily weights and fluid restrict -added hydralazine 25mg q6h with holding parameters for elevated BPs and changed Amlodipine to 5mg BID, c/u to monitor and manage accordingly -HLD- c/u statin -medicine consulted to assist with overall management 4. Resp:hx of HOWARD non-compliant with CPAP, COPD on home , c/u 02 goal 88-92% -c/u breathing treatments, monitor for infection -recent CT showin, "new 1 cm nodular density in the left lung apex." will need f/u Chest CT and PMD follow-up -patient son had Covid exposure, he is asymptomatic, and patient reports exposure to son- per Infection control recs staff to wear masks and check Temp BID, monitor for sx-patient not exhibiting signs of any infection at this time 5. Renal: CKD4 will consult renal to assist with fluid management 6. GI ppx: protonix 7. DVT ppx: heparin and TEDs 8. Pain: lidoderm patch to right knee, Tylenol standing and tramadol prn 9. Psych: insomnia, trazodone 10. Dispo: TBD Allergies Coded Allergies: lisinopril (Verified Allergy, Severe, angioedema lip, 12/06/19) angioedema lip latex (Verified Allergy, Intermediate, RASH/ITCHING, 12/06/19) codeine (Verified Adverse Reaction, Mild, HEADACHE, 12/06/19) oxycodone (Verified Adverse Reaction, Mild, CONFUSION, 12/06/19) Vital Signs Vital Signs Date Time Temp Pulse Resp B/P (MAP) Pulse Ox O2 Delivery O2 Flow Rate FiO2 01/13/20 08:57 178/70 01/13/20 08:00 3.0 01/13/20 06:59 18 01/13/20 06:46 72 01/13/20 06:00 96.5 95 Nasal Cannula Laboratory Data CBC/BMP Laboratory Tests 01/13/20 06:11 Labs 24H Laboratory Tests 2 01/12/20 11:36: Bedside Glucose (Misc Panel) 230H 01/12/20 16:40: Bedside Glucose (Misc Panel) 292H 01/12/20 20:49: Bedside Glucose (Misc Panel) 408H 01/13/20 05:45: Bedside Glucose (Misc Panel) 227H 01/13/20 06:11: Anion Gap 7L, Glomerular Filtration Rate 24.5L, Uric Acid 5.3, Calcium Level 9 .5, Phosphorus Level 5.2H, Iron Level 67, Total Iron Binding Capacity 456H, Transferrin % Saturation 14.7, Albumin 3.3 Current Medications Current Medications Current Medications Medications (Trade) Dose Ordered Sig/Margarita Route PRN Reason Start Time Stop Time Status Last Admin Dose Admin Acetaminophen (Tylenol Tab) 1,000 mg TID PO 01/11/20 16:00 01/13/20 08:56 Al Hydrox/Mg Hydrox/Simethicone (Mylanta) 30 ml Q4HP PRN PO DYSPEPSIA 01/11/20 12:00 Albuterol Sulfate (Proventil, Ventolin Hfa) 2 puff Q2HP PRN INH SHORTNESS OF BREATH 01/11/20 12:00 Albuterol/ Ipratropium (Duoneb (Ipr 0.5mg/Alb 2.5mg)) 3 ml RTID NEB 01/11/20 20:00 01/13/20 07:45 Allopurinol (Zyloprim) 100 mg DAILY PO 01/12/20 09:00 01/13/20 08:55 Amlodipine Besylate (Norvasc) 5 mg DAILY PO 01/11/20 09:00 01/13/20 06:46 Amoxicillin (Amoxicillin) 500 mg BID PO 01/12/20 21:00 01/17/20 20:59 01/13/20 08:55 Aspirin (Ecotrin) 81 mg DAILY PO 01/12/20 09:00 01/13/20 08:57 Bisacodyl (Dulcolax Suppository) 10 mg DAILYPRN PRN IN CONSTIPATION 01/11/20 12:00 Calcitriol (Rocaltrol) 0.5 mcg DAILY PO 01/12/20 09:00 01/13/20 08:56 Dextrose (Dextrose 50%) 25 ml ASDIRECTED PRN IV SEE LABEL COMMENTS 01/11/20 12:00 Docusate Sodium (Colace) 100 mg BID PO 01/11/20 21:00 01/13/20 08:57 Gabapentin (Neurontin) 200 mg TID PO 01/11/20 16:00 01/11/20 15:54 DC Glucagon (Glucagon) 1 mg ASDIRECTED PRN SC SEE LABEL COMMENTS 01/11/20 12:00 Glucose (Glucose) 16 GM ASDIRECTED PRN PO SEE LABEL COMMENTS 01/11/20 12:00 Heparin Sodium (Porcine) (Heparin) 5,000 units Q8H SC 01/11/20 14:00 01/13/20 06:22 Home Med (Med Rec Complete!) ASDIRECTED XX 01/11/20 16:15 01/11/20 16:13 DC Insulin Detemir (Levemir Insulin) 30 units BID SC 01/11/20 21:00 01/12/20 14:57 DC 01/12/20 07:58 Insulin Detemir (Levemir Insulin) 35 units BID SC 01/12/20 21:00 01/13/20 08:58 Insulin Human Lispro (HumaLOG INSULIN) SEE PROTOCOL TABLE AC SC 01/11/20 17:30 01/13/20 08:59 Insulin Human Lispro (HumaLOG INSULIN) SEE PROTOCOL TABLE QHS SC 01/11/20 21:00 01/12/20 21:05 Isosorbide Mononitrate (Imdur) 30 mg DAILY PO 01/12/20 09:00 01/13/20 08:57 Ketoconazole (Nizoral) 1 dose BID TOP 01/11/20 21:00 01/13/20 09:00 Lactobacillus Acidophilus (Bacid) 1 ea WM PO 01/11/20 18:00 01/13/20 08:57 Levofloxacin (Levaquin) 500 mg Q48H PO 01/11/20 18:00 01/15/20 18:01 Cancel Levofloxacin (Levaquin) 500 mg Q48H PO 01/12/20 06:00 01/12/20 16:44 DC 01/12/20 05:46 Lidocaine (Lidoderm Patch) 1 patch DAILY TD 01/12/20 11:00 01/13/20 08:56 Nicotine (Nicoderm Cq 7 Mg) 1 patch DAILY TD 01/12/20 12:00 01/13/20 08:57 Nitroglycerin (Nitrostat (1/ 150)) 0.4 mg Q5MP PRN SL CHEST PAIN 4/7/20 12:00 Non-Formulary Medication ( See Comment Field Below ) REMOVE LIDODERM PATCH DAILY@21 XX 01/12/20 21:00 01/12/20 20:57 Nystatin (Mycostatin Powder, Nystop) 1 dose BID TOP 01/11/20 21:00 01/13/20 09:00 Pantoprazole Sodium (Protonix) 40 mg DAILY PO 01/12/20 09:00 01/13/20 08:55 Pregabalin (Lyrica) 75 mg BID PO 01/12/20 21:00 01/13/20 08:56 Pregabalin (Lyrica) 75 mg TID PO 01/11/20 16:00 01/12/20 16:38 DC 01/12/20 07:55 Rosuvastatin Calcium (Crestor) 20 mg QHS PO 01/11/20 21:00 01/12/20 20:54 Senna (Senokot) 1 tab QHS PO 01/11/20 21:00 01/11/20 21:42 Simethicone (Mylicon) 80 mg QIDP PRN PO BLOATING 01/11/20 12:00 Sucralfate (Carafate) 1 gm ACHS PO 01/11/20 17:30 01/13/20 08:57 Torsemide (Demadex) 40 mg BID@,17 PO 01/11/20 17:00 01/13/20 08:56 Tramadol HCl (Ultram) 25 mg Q6HP PRN PO MODERATE PAIN (PS 5-7) 01/11/20 12:00 01/13/20 06:28 Trazodone HCl (Desyrel) 25 mg QHS PO 01/12/20 21:00 01/12/20 20:53 DANA AGUIAR MD Jan 13, 2020 09:55
[2020-01-13] MEDS ORDERED: TORSEMIDE 20 MG TAB PO ONE (10:15)
[2020-01-13 10:44] LABS: PTH INTACT 56.1 PG/ML (18.5-88.0)
[2020-01-13 13:23] VITALS: BP 176/71
[2020-01-13] MEDS: **hydrALAZINE HCL** 25 MG TAB PO SCH ×3 (13:25→23:10)
[2020-01-13 17:00] VITALS: BP 157/69
--- NOTE | 2020-01-13 19:48 | IPN ---
DATE: 01/13/2020 Mrs. Falcon is seen this morning on her bedside. She is sitting in the chair at the time of my visit. She denies any fever or chills. Her leg edema is essentially unchanged. Her diuretic has been increased recently. She denies any nausea or vomiting. PHYSICAL EXAMINATION Temperature 97 degrees Fahrenheit, heart rate 72 per minute and respiratory rate 18 per minute. Blood pressure 176/70 mmHg and oxygen saturation 98% on 3 liters oxygen. Head is atraumatic. Neck: Supple and JVD difficult to be assessed sitting upright. Lungs: Slightly diminished breath sounds and bibasilar rales. Heart: Sounds are regular and abdomen obese, soft and nontender. Bowel sounds are normal. Extremities: Without any cyanosis or clubbing. Lower extremity edema is essentially unchanged. Neurologically she is awake, alert and at her baseline mentation. LABS: Today's labs showed BUN 67 and creatinine 2.08. Her baseline creatinine has been about 2.0. Calcium was 9.5, sodium 140 and potassium 4.9. Iron level 67 and saturation 14.7%. Intact PTH level has come back at 56.1. PROBLEMS 1. Acute kidney injury superimposed on chronic kidney disease. No significant change in kidney function from her baseline. Even prior to admission her serum creatinine was about 2.0. At this point, we will continue to monitor her kidney function closely. Her electrolytes are stable and she does not have any metabolic acidosis. 2. Peripheral edema and congestive heart failure. Her volume status is still decompensated. She is now on torsemide 40 mg twice a day and seems to be responding. Her intake and output has not been recorded accurately but the patient feels that she is diuresing quite a bit. Her weight has not changed as yet. 3. Anemia. Her anemia is probably related to chronic kidney disease. Her borderline iron studies are noticed. There was no CBC done today. We will order another CBC for tomorrow. 4. Hypertension. Blood pressure seems reasonably well-controlled and no changes are being made in antihypertensive meds.
[2020-01-13] MEDS: SENNA 8.6 MG TAB (SENOKOT) PO SCH (21:00)
[2020-01-13 21:06] VITALS: BP 148/52
[2020-01-13] MEDS: ROSUVASTATIN 10 MG TAB (CRESTOR) PO SCH (21:09)
[2020-01-13] MEDS: **NOTE PATIENT COMMENT** MISC XX SCH (21:12)
[2020-01-13] MEDS: traZODone 25MG PER 1/2 TABLET PO SCH (22:30)
[2020-01-14] MEDS: HEPARIN SOD (PORCINE) 5000UNITS/ML VIAL (J1644 PER 1000UNITS) SC SCH ×3 (05:53→21:29)
[2020-01-14] MEDS: **hydrALAZINE HCL** 25 MG TAB PO SCH ×4 (05:53→23:02)
[2020-01-14 06:03] VITALS: BP_SYST 145; BP_SYST 150; BP_DIAS 77; BP_DIAS 81
[2020-01-14] MEDS: IPRATROPIUM 0.5MG/ALBUTEROL 2.5MG INH SOL UD 3ML (DUONEB)(J7620) NEB SCH ×3 (07:01→19:23)
[2020-01-14 07:27] LABS: BASO % 0.3 % (0.0-1.0); EOS # 0.2 10^3/uL (0.0-0.5); EOS % 3.1 % (0.0-3.0); HEMATOCRIT 35.6 % (36.0-47.0); HEMOGLOBIN 10.7 g/dl (12.0-15.5); LYMPH # 1.8 10^3/uL (1.5-5.0); LYMPH % 24.6 % (24.0-44.0); MEAN CORPUSCULAR HEMOGLOBIN 27.6 pg (27.0-33.0); MEAN CORPUSCULAR HGB CONC 30.1 g/dl (32.0-36.5); MEAN CORPUSCULAR VOLUME 91.8 fl (80.0-96.0); MONO % 14.2 % (0.0-5.0); NEUTROPHILS # 4.1 10^3/uL (1.5-8.5); PLATELET COUNT, AUTOMATED 156 10^3/uL (150-450); RED BLOOD COUNT 3.88 10^6/uL (4.00-5.40); WHITE BLOOD COUNT 7.2 10^3/uL (4.0-10.0)
[2020-01-14 07:51] LABS: CALCIUM LEVEL 10.1 MG/DL (8.8-10.2); CREATININE FOR GFR 1.96 MG/DL (0.55-1.30); GLOMERULAR FILTRATION RATE 26.3 (>39); POTASSIUM SERUM 4.5 MEQ/L (3.5-5.1)
[2020-01-14] MEDS: NICOTINE 7 MG/24 HR TRANSDERMAL TD SCH (08:41)
[2020-01-14] MEDS: LEVEMIR (INSULIN DETEMIR) 1 UNITS/0.01ML SC SCH ×2 (08:42→21:33)
[2020-01-14] MEDS: HumaLOG INSULIN (NovoLOG) PER UNIT SC SCH ×4 (08:42→21:33)
[2020-01-14] MEDS: CALCITRIOL 0.25 MCG CAP (S0169) PO SCH (08:42)
[2020-01-14] MEDS: SUCRALFATE 1 GM TAB PO SCH ×4 (08:43→21:30)
[2020-01-14] MEDS: PANTOPRAZOLE 40MG TAB (PROTONIX) PO SCH (08:43)
[2020-01-14] MEDS: PREGABALIN 75 MG CAP(LYRICA) PO SCH ×2 (08:43→21:30)
[2020-01-14] MEDS: AMOXICILLIN 500 MG CAP PO SCH ×2 (08:43→21:30)
[2020-01-14] MEDS: ASPIRIN 81 MG ENTERIC TAB PO SCH (08:43)
[2020-01-14] MEDS: TORSEMIDE 20 MG TAB PO SCH ×2 (08:43→18:00)
[2020-01-14] MEDS: allopurinoL 100 MG TAB PO SCH (08:43)
[2020-01-14] MEDS: ISOSORBIDE MON. (IMDUR) 30 MG XR TAB PO SCH (08:45)
[2020-01-14] MEDS: LACTOBACILLUS ACIDOPHILUS CAP (BACID) PO SCH ×3 (08:45→18:00)
[2020-01-14] MEDS: ACETAMINOPHEN 500 MG TAB PO SCH ×3 (08:46→21:31)
[2020-01-14] MEDS: amLODIPine 5 MG TAB PO SCH ×2 (08:47→21:32)
[2020-01-14] MEDS: LIDOCAINE 5% (LIDODERM) PATCH TD SCH (08:47)
[2020-01-14] MEDS: DOCUSATE SODIUM 100 MG CAP PO SCH ×2 (08:47→21:00)
[2020-01-14] MEDS: NYSTATIN 100,000 UNITS/GM TOPICAL PWD 15 GM TOP SCH ×2 (08:48→21:34)
[2020-01-14] MEDS: KETOCONAZOLE 2% CREAM TOP SCH ×2 (08:48→21:34)
[2020-01-14] MEDS: REMEDY PHYTOPLEX Z-GUARD PASTE 113GM TUBE (FROM STOREROOM PRODUCT) TOP SCH ×3 (08:48→21:00)
--- NOTE | 2020-01-14 12:23 | IPN ---
DATE OF VISIT: 01/14/2020 Mrs. Falcon is seen this morning on her bedside. She is sitting in the chair and reports that she wants to go home. She denies any dyspnea, chest pain, nausea, vomiting, fever or chills. Her leg edema is slightly better. She is quite unhappy and wants to go home today. On physical exam, temperature 96 degrees Fahrenheit, heart rate 65 per minute and respiratory rate 18 per minute. Blood pressure 139/60 mmHg and oxygen saturation 96% on 3 liters oxygen. Head is atraumatic. Neck supple and jugular venous distention (JVD) difficult to be assessed sitting upright. Lungs sound clear to auscultation. Heart sounds are regular and distant. Abdomen obese, soft and nontender. Bowel sounds are normal. Extremities without any cyanosis or clubbing. Lower extremity edema is 2+ on the left leg and 3+ on the right leg. Neurologically, she is awake, alert and at her baseline mentation. Today's labs show WBC count 7.2, hemoglobin 10.7 and hematocrit 35.6. Platelets 156. Sodium 137, potassium 4.5, CO2 34, BUN 70 and creatinine 1.96. Glucose 174 and calcium 10.1. PROBLEMS: 1. Acute renal failure superimposed on chronic kidney disease. Slight fluctuations in her kidney function noticed. She does not have any significant worsening of kidney function from her prior baseline. At present, she does not have any uremic symptoms and renal function will need to be monitored frequently as she is being diuresed. 2. Congestive heart failure. She does have history of diastolic congestive heart failure with decompensated volume status. She is currently on torsemide 40 mg twice a day, which should be continued. She has not lost any weight so far since admission. She needs to follow a low-sodium diet and fluid restriction of 1500 mL per day. If patient goes home as she is quite determined to do today, she will need followup in the office next week. 3. Anemia. Her anemia is stable and does not need any intervention at present. DISPOSITION: Patient wants to go home today and I have explained to her about her risks and significant swelling of her feet and lower extremities. She remains at risk for falling again due to poor balance caused by swollen feet. She does not seem to be convinced to stay so far. I will defer any decision to the acute rehab team.
[2020-01-14] MEDS ORDERED: RISATAB3 PO (12:31)
[2020-01-14] MEDS ORDERED: LYRI75CA PO (12:31)
[2020-01-14] MEDS ORDERED: TRES1INJ2 SC (12:31)
[2020-01-14] MEDS ORDERED: ISOS30TA4 PO (12:31)
[2020-01-14] MEDS ORDERED: AMLO5TAB6 PO (12:31)
[2020-01-14] MEDS ORDERED: ASPI81TAEC PO (12:31)
[2020-01-14] MEDS ORDERED: AMOX500C PO (12:31)
[2020-01-14] MEDS ORDERED: CRES10TA PO (12:31)
[2020-01-14] MEDS ORDERED: INSUHUMDS SC (12:31)
[2020-01-14] MEDS ORDERED: SUCR1TA PO (12:31)
[2020-01-14] MEDS ORDERED: ALLO10TA PO (12:31)
[2020-01-14] MEDS ORDERED: HYDR25TA PO (12:31)
[2020-01-14] MEDS ORDERED: CALC1CAP31 PO (12:31)
[2020-01-14] MEDS ORDERED: NITR4TASL SL (12:31)
[2020-01-14] MEDS ORDERED: TORS20TA2 PO (12:31)
[2020-01-14] MEDS ORDERED: PANT40TA3 PO (12:31)
[2020-01-14 14:00] VITALS: BP 152/66
--- NOTE | 2020-01-14 14:14 | IPNPDOC ---
PM&R Progress Note DATE OF SERVICE: Jan 14, 2020 Satin Finisher Progress Note Subjective: Patient reports she wants to go home tomorrow and is not interested in working more with therapy to work on endurance. She states she wants to be with her grandchildren on [facility] and does not want to be in the hospital any longer. She expressed understanding that her risk of falls and medical decompensation were high given her frequent hospital visits and understands more rehab might prevent or delay another hospital admission, but is not agreeable to stay for more therapy. REVIEW OF SYSTEMS: The following is a completed review of systems and has been reviewed. Review of systems otherwise unremarkable. PAIN: Patient self reports right knee pain EYES: No recent vision changes EARS, NOSE, & THROAT: No throat pain, or dysphagia, or rhinorrhea CARDIOVASCULAR: Denies chest pain or palpitations PULMONARY: + shortness of breath with exertion (chronic), +chronic cough GASTROINTESTINAL: Denies constipation/diarrhea GENITOURINARY: denies dysuria MUSCULOSKELETAL: generalized weakness NEUROLOGICAL:+peripheral polyneuropathy HEMATOLOGICAL: denies easy bruising SKIN: scattered hyperkeratotic lesions PSYCHIATRIC: Unremarkable All other review of systems found to be negative. PHYSICAL EXAMINATION: VITAL SIGNS: Please see below. GENERAL: Pleasant and cooperative. No acute distress. morbidly obese HEENT: PERRL. Extraocular movements intact. Clear conjunctiva CARDIOVASCULAR: Regular rate and rhythm. No murmurs, rubs, or gallops LUNGS: No wheezes. +scattered rhonchi ABDOMEN: Soft, nontender, nondistended. Positive bowel sounds. Normal active bowel sounds NEUROLOGICAL: Alert and oriented times three. Cranial nerves II through XII grossly intact. Sensation to light touch diminished in stocking/glove pattern -bilat intention tremor EXTREMITIES: 5\\5 strength bilateral upper extremities. 5-\\5 strength right lower extremity. 5-/5 strength in left lower extremity. +TTP medial right knee +bilat LE edema SKIN: scattered hyper-keratotic lesions on all limbs ASSESSMENT:79-year-old F with past medical history of COPD who presents status post falls in setting of peripheral polyneuropathy PLAN: 1. rehab- PT/OT advance gait and ADL training, fall recovery, dynamic balance, energy conservation techniques, stretch/strengthen/maintain ROM all 4 limbs 2. Neuro: patient with significant peripheral polyneuropathy in setting of poorly controlled DM, optimize DM management -patient noted to have bilateral intentional tremor on exam which she reports has been getting worse-patient on non-renally dosed Gabapentin, will d/c as this may side effect of gabapentin toxicity -patient also on too high dose of Lyrica, will discuss with renal about cutting back 3. Cardiac: hx of HTN with diastolic CHF c/u BP meds, discussed with hospitalist increasing Torsemide dosing to 40mg BID due to fluid overloaded status, renal consulted to to assist with fluid management in setting of CKD4, daily weights and fluid restrict -added hydralazine 25mg q6h with holding parameters for elevated BPs and changed Amlodipine to 5mg BID, c/u to monitor and manage accordingly -HLD- c/u statin -medicine consulted to assist with overall management 4. Resp:hx of HOWARD non-compliant with CPAP, COPD on home , c/u 02 goal 88-92% -c/u breathing treatments, monitor for infection -recent CT showin, "new 1 cm nodular density in the left lung apex." will need f/u Chest CT and PMD follow-up -patient son had Covid exposure, he is asymptomatic, and patient reports exposure to son- per Infection control recs staff to wear masks and check Temp BID, monitor for sx-patient not exhibiting signs of any infection at this time 5. Renal: CKD4- renal consulted to assist with fluid management-recs appreciated 6. GI ppx: protonix 7. DVT ppx: heparin and TEDs 8. Pain: lidoderm patch to right knee, Tylenol standing and tramadol prn 9. Psych: insomnia, trazodone 10. Dispo: Patient will likely d/c to home tomorrow with home services reinstated. She has been educated on value of staying longer to build up her endurance, but has declined thus far to continue to receive care beyond tomorrow. She states if she doesn't feel up to going home tomorrow she will stay. She understands the risks of going home sooner than recommended. She is technically functionally safe to go home, however patient did not commit adequate time towards building up her endurance or to work fall prevention despite sincere efforts on the part of therapy and medical staff to convince her to stay a few more days. Medically she is also at her baseline and will need close follow-up with renal and her PMD for blood pressure and fluid management. Allergies Coded Allergies: lisinopril (Verified Allergy, Severe, angioedema lip, 12/06/19) angioedema lip latex (Verified Allergy, Intermediate, RASH/ITCHING, 12/06/19) codeine (Verified Adverse Reaction, Mild, HEADACHE, 12/06/19) oxycodone (Verified Adverse Reaction, Mild, CONFUSION, 12/06/19) Vital Signs Vital Signs Date Time Temp Pulse Resp B/P (MAP) Pulse Ox O2 Delivery O2 Flow Rate FiO2 01/14/20 12:00 130/60 01/14/20 08:47 69 01/14/20 08:45 3.0 01/14/20 06:03 96.1 18 96 Nasal Cannula Laboratory Data CBC/BMP Laboratory Tests 01/14/20 06:47 Labs 24H Laboratory Tests 2 01/13/20 16:30: Bedside Glucose (Misc Panel) 209H 01/13/20 20:08: Bedside Glucose (Misc Panel) 327H 01/14/20 06:18: Bedside Glucose (Misc Panel) 192H 01/14/20 06:47: Immature Granulocyte % (Auto) 0.8, Neutrophils (%) (Auto) 57.0, Lymphocytes (%) (Auto) 24.6, Monocytes (%) (Auto) 14.2H, Eosinophils (%) (Auto) 3.1H, Basophils (%) (Auto) 0.3, Neutrophils # (Auto) 4.1, Lymphocytes # (Auto) 1.8, Monocytes # (Auto) 1.0H, Eosinophils # (Auto) 0.2, Basophils # (Auto) 0.0, Nucleated Red Blood Cells % (auto) 0.0, Anion Gap 5L, Glomerular Filtration Rate 26.3L, Calcium Level 10.1 01/14/20 11:31: Bedside Glucose (Misc Panel) 255H Current Medications Current Medications Current Medications Medications (Trade) Dose Ordered Sig/Margarita Route PRN Reason Start Time Stop Time Status Last Admin Dose Admin Acetaminophen (Tylenol Tab) 1,000 mg TID PO 01/11/20 16:00 01/14/20 08:46 Al Hydrox/Mg Hydrox/Simethicone (Mylanta) 30 ml Q4HP PRN PO DYSPEPSIA 01/11/20 12:00 Albuterol Sulfate (Proventil, Ventolin Hfa) 2 puff Q2HP PRN INH SHORTNESS OF BREATH 01/11/20 12:00 Albuterol/ Ipratropium (Duoneb (Ipr 0.5mg/Alb 2.5mg)) 3 ml RTID NEB 01/11/20 20:00 01/14/20 07:01 Allopurinol (Zyloprim) 100 mg DAILY PO 01/12/20 09:00 01/14/20 08:43 Amlodipine Besylate (Norvasc) 5 mg BID PO 01/13/20 21:00 01/14/20 08:47 Amlodipine Besylate (Norvasc) 5 mg DAILY PO 01/11/20 09:00 01/13/20 12:16 DC 01/13/20 06:46 Amoxicillin (Amoxicillin) 500 mg BID PO 01/12/20 21:00 01/17/20 20:59 01/14/20 08:43 Aspirin (Ecotrin) 81 mg DAILY PO 01/12/20 09:00 01/14/20 08:43 Bisacodyl (Dulcolax Suppository) 10 mg DAILYPRN PRN MS CONSTIPATION 01/11/20 12:00 Calcitriol (Rocaltrol) 0.5 mcg DAILY PO 01/12/20 09:00 01/14/20 08:42 Dextrose (Dextrose 50%) 25 ml ASDIRECTED PRN IV SEE LABEL COMMENTS 01/11/20 12:00 Docusate Sodium (Colace) 100 mg BID PO 01/11/20 21:00 01/14/20 08:47 Gabapentin (Neurontin) 200 mg TID PO 01/11/20 16:00 01/11/20 15:54 DC Glucagon (Glucagon) 1 mg ASDIRECTED PRN SC SEE LABEL COMMENTS 01/11/20 12:00 Glucose (Glucose) 16 GM ASDIRECTED PRN PO SEE LABEL COMMENTS 01/11/20 12:00 Heparin Sodium (Porcine) (Heparin) 5,000 units Q8H SC 01/11/20 14:00 01/14/20 05:53 Home Med (Med Rec Complete!) ASDIRECTED XX 01/11/20 16:15 01/11/20 16:13 DC Hydralazine HCl (Apresoline) 25 mg Q6H PO 01/13/20 12:00 01/14/20 05:53 Insulin Detemir (Levemir Insulin) 30 units BID SC 01/11/20 21:00 01/12/20 14:57 DC 01/12/20 07:58 Insulin Detemir (Levemir Insulin) 35 units BID SC 01/12/20 21:00 01/13/20 09:54 DC 01/13/20 08:58 Insulin Detemir (Levemir Insulin) 38 units BID SC 01/13/20 21:00 01/14/20 08:42 Insulin Human Lispro (HumaLOG INSULIN) SEE PROTOCOL TABLE AC SC 01/11/20 17:30 01/14/20 12:21 Insulin Human Lispro (HumaLOG INSULIN) SEE PROTOCOL TABLE QHS SC 01/11/20 21:00 01/13/20 21:11 Isosorbide Mononitrate (Imdur) 30 mg DAILY PO 01/12/20 09:00 01/14/20 08:45 Ketoconazole (Nizoral) 1 dose BID TOP 01/11/20 21:00 01/14/20 08:48 Lactobacillus Acidophilus (Bacid) 1 ea WM PO 01/11/20 18:00 01/14/20 12:19 Levofloxacin (Levaquin) 500 mg Q48H PO 01/11/20 18:00 01/15/20 18:01 Cancel Levofloxacin (Levaquin) 500 mg Q48H PO 01/12/20 06:00 01/12/20 16:44 DC 01/12/20 05:46 Lidocaine (Lidoderm Patch) 1 patch DAILY TD 01/12/20 11:00 01/14/20 08:47 Nicotine (Nicoderm Cq 7 Mg) 1 patch DAILY TD 01/12/20 12:00 01/14/20 08:41 Nitroglycerin (Nitrostat (1/ 150)) 0.4 mg Q5MP PRN SL CHEST PAIN 01/11/20 12:00 Non-Formulary Medication ( See Comment Field Below ) REMOVE LIDODERM PATCH DAILY@21 XX 01/12/20 21:00 01/13/20 21:12 Nystatin (Mycostatin Powder, Nystop) 1 dose BID TOP 01/11/20 21:00 01/14/20 08:48 Pantoprazole Sodium (Protonix) 40 mg DAILY PO 01/12/20 09:00 01/14/20 08:43 Pregabalin (Lyrica) 75 mg BID PO 01/12/20 21:00 01/14/20 08:43 Pregabalin (Lyrica) 75 mg TID PO 01/11/20 16:00 01/12/20 16:38 DC 01/12/20 07:55 Rosuvastatin Calcium (Crestor) 20 mg QHS PO 01/11/20 21:00 01/13/20 21:09 Senna (Senokot) 1 tab QHS PO 01/11/20 21:00 01/11/20 21:42 Simethicone (Mylicon) 80 mg QIDP PRN PO BLOATING 01/11/20 12:00 Sucralfate (Carafate) 1 gm ACHS PO 01/11/20 17:30 01/14/20 12:19 Torsemide (Demadex) 40 mg BID@09,17 PO 01/11/20 17:00 01/14/20 08:43 Tramadol HCl (Ultram) 25 mg Q6HP PRN PO MODERATE PAIN (PS 5-7) 01/11/20 12:00 01/13/20 14:49 Trazodone HCl (Desyrel) 25 mg QHS PO 01/12/20 21:00 01/13/20 22:30 DANA AGUIAR MD Jan 14, 2020 14:14
[2020-01-14 20:27] VITALS: BP 145/69
[2020-01-14] MEDS: SENNA 8.6 MG TAB (SENOKOT) PO SCH (21:00)
[2020-01-14] MEDS: **NOTE PATIENT COMMENT** MISC XX SCH (21:29)
[2020-01-14] MEDS: traZODone 25MG PER 1/2 TABLET PO SCH (21:30)
[2020-01-14] MEDS: ROSUVASTATIN 10 MG TAB (CRESTOR) PO SCH (21:30)
[2020-01-15] MEDS: traMADol 50 MG TAB PO PRN (00:55)
[2020-01-15] MEDS: HEPARIN SOD (PORCINE) 5000UNITS/ML VIAL (J1644 PER 1000UNITS) SC SCH (05:24)
[2020-01-15] MEDS: **hydrALAZINE HCL** 25 MG TAB PO SCH (05:30)
[2020-01-15 05:49] VITALS: BP 153/69
[2020-01-15] MEDS: IPRATROPIUM 0.5MG/ALBUTEROL 2.5MG INH SOL UD 3ML (DUONEB)(J7620) NEB SCH (07:41)
[2020-01-15] MEDS: NICOTINE 7 MG/24 HR TRANSDERMAL TD SCH (08:23)
[2020-01-15] MEDS: amLODIPine 5 MG TAB PO SCH (08:24)
[2020-01-15] MEDS: LACTOBACILLUS ACIDOPHILUS CAP (BACID) PO SCH (08:24)
[2020-01-15] MEDS: PREGABALIN 75 MG CAP(LYRICA) PO SCH (08:24)
[2020-01-15] MEDS: AMOXICILLIN 500 MG CAP PO SCH (08:24)
[2020-01-15] MEDS: ASPIRIN 81 MG ENTERIC TAB PO SCH (08:24)
[2020-01-15] MEDS: HumaLOG INSULIN (NovoLOG) PER UNIT SC SCH (08:25)
[2020-01-15] MEDS: LEVEMIR (INSULIN DETEMIR) 1 UNITS/0.01ML SC SCH (08:26)
[2020-01-15] MEDS: PANTOPRAZOLE 40MG TAB (PROTONIX) PO SCH (08:26)
[2020-01-15] MEDS: allopurinoL 100 MG TAB PO SCH (08:26)
[2020-01-15 08:27] VITALS: BP 153/69
[2020-01-15] MEDS: ACETAMINOPHEN 500 MG TAB PO SCH (08:27)
[2020-01-15] MEDS: SUCRALFATE 1 GM TAB PO SCH (08:27)
[2020-01-15] MEDS: TORSEMIDE 20 MG TAB PO SCH (08:27)
[2020-01-15] MEDS: ISOSORBIDE MON. (IMDUR) 30 MG XR TAB PO SCH (08:27)
[2020-01-15] MEDS: LIDOCAINE 5% (LIDODERM) PATCH TD SCH (08:28)
[2020-01-15] MEDS: CALCITRIOL 0.25 MCG CAP (S0169) PO SCH (08:28)
[2020-01-15] MEDS: DOCUSATE SODIUM 100 MG CAP PO SCH (08:28)
[2020-01-15] MEDS: KETOCONAZOLE 2% CREAM TOP SCH (08:35)
[2020-01-15] MEDS: REMEDY PHYTOPLEX Z-GUARD PASTE 113GM TUBE (FROM STOREROOM PRODUCT) TOP SCH (08:35)
[2020-01-15] MEDS: NYSTATIN 100,000 UNITS/GM TOPICAL PWD 15 GM TOP SCH (08:36)
--- NOTE | 2020-01-31 18:58 | PMRDS ---
DATE OF ADMISSION: 01/11/2020 DATE OF DISCHARGE: 01/15/2020 CHIEF COMPLAINT/DISCHARGE DIAGNOSIS: Falls in the setting of peripheral polyneuropathy. HISTORY OF PRESENT ILLNESS: 79F pmh obesity, COPD on home 02, HTN, DM with peripheral polyneuropathy, HOWARD non-compliant with CPAP, CKD4, HLD who presented to [facility] ED on 01-08-20 following a mechanical fall at home where her right leg gave out and she fell, hitting her head. On initial eval patient complained of right knee pain, but decided to return home without receiving further care. She presented back to the hospital the following day 01-09-20 stating she is unable to care for herself with her leg pain and weakness. CTH was negative for acute pathology and lower extremity imaging was also negative for fractures. She was diuresed due to significant edema and her kidney function remained at baseline. She received Veltassa for hyperkalemia and evaluated by therapy where she was found to have gait and mobility impairments. She was deemed medically appropriate for discharge to ARU on 01-11-20. PAST MEDICAL HISTORY: As per history of the present illness. HOSPITAL COURSE: The patient was admitted, enrolled in a comprehensive physical therapy (PT), occupational therapy (OT) program. She received 24-hour nursing supervision and weekly team meetings were held to discuss her progress. During her hospital course, the patient was followed closely by renal for her fluid overloaded status in the setting of chronic kidney disease IV. She was maintained on breathing treatments for history of chronic obstructive pulmonary disease (COPD) and supplemental oxygen as needed. She complained of right knee pain and swelling, which improved, Lidoderm patching and Tylenol. On arrival, the patient reported tremors in her hand, which was thought to be due to her non-renally dosed gabapentin and high dose of Lyrica, which was adjusted. Her tremors improved, and she reported feeling stronger. However, had strong feelings towards going home and did not want to continue her rehab program. She was educated on multiple occasions on the benefits, both medically and functionally, for staying a few more days; however, she did decline to continue participation. She was deemed technically functionally safe to go home, howvever, not ideally safe to go home. Patient was discharged home with help from her family. DISCHARGE MEDICATIONS: As per instructions. FUNCTIONAL HISTORY: On discharge, the patient was modified independent, able to ambulate 25 feet, and in occupational therapy, she was standby assist for upper body dressing, min assist for bathing, modified independent (mod I) for functional transfers. Thank you for this referral.
== END 2020-01-15 11:30 | disposition home health service (06) | DRG 300 ==
LOC: M PM&R 14:42
PROVIDERS: ADMIT Physical Medicine & Rehabilitation; ATTEND Physical Medicine & Rehabilitation
DX: E11.51 Type 2 diabetes mellitus with diabetic peripheral angiopathy without gangrene (principal); I13.0 Hypertensive heart and chronic kidney disease with heart failure and stage 1 through stage 4 chronic kidney disease, or unspecified chronic kidney disease; N18.4 Chronic kidney disease, stage 4 (severe); I50.32 Chronic diastolic (congestive) heart failure; J44.9 Chronic obstructive pulmonary disease, unspecified; G47.33 Obstructive sleep apnea (adult) (pediatric); Z11.9 Encounter for screening for infectious and parasitic diseases, unspecified; F17.200 Nicotine dependence, unspecified, uncomplicated; Z79.899 Other long term (current) drug therapy; Z79.82 Long term (current) use of aspirin; Z91.040 Latex allergy status; Z88.5 Allergy status to narcotic agent

== ENCOUNTER 2020-02-02 22:13 | Emergency (ER) | payer MEDICARE ==
[~2020-02-02] VITALS: Ht 152.4 cm; Wt 92.3 kg
[~2020-02-02 22:13] MED LIST changes: +AMOX500C PO; +ASPI81TAEC PO; +CRES10TA PO; +HYDR25TA PO; +INSUHUMDS SC; +NITR4TASL SL; +RISATAB3 PO
[2020-02-02 22:26] VITALS: BP 130/80
--- NOTE | 2020-02-02 22:31 | ED PDOC ---
Post-Departure Follow-Up Patient not seen by any provider. Patient arrived via EMS for complaints of SOB and exposure to COVID positive HCP. Upon being placed in a face mask by EMS, she told EMS she did not want to go to the hospital because of having to wear a mask. She was transported to the ED and upon entering, demanded to be discharged, refused all care. She was signed out as Myles Helm M.D. Feb 02, 2020 22:31
== END 2020-02-02 23:55 | disposition left against medical advice (07) ==
LOC: M ED 22:13
DX: Z53.21 Procedure and treatment not carried out due to patient leaving prior to being seen by health care provider (principal)

== ENCOUNTER 2020-02-21 05:35 | Emergency (ER) | payer MEDICARE ==
[~2020-02-21] VITALS: Ht 157.5 cm; Wt 90.0 kg
[~2020-02-21 05:35] MED LIST changes: +AMLO1TAB24 PO; -AMLO5TAB6 PO; -ASPI81TA85 PO; +ASPI81TA86 PO; +ISOS1TAB35 PO; -ISOS30TA4 PO; -LISI-538 PO; +LISI20TA33 PO; -LISI40TA PO; +LISI40TA4 PO; -PANT20TA2 PO; +PANT20TA6 PO; +PANT40TA29 PO; -PANT40TA3 PO
[2020-02-21 05:44] VITALS: BP 119/67
[2020-02-21] MEDS ORDERED: AMLO1TAB24 PO (16:33)
[2020-02-21] MEDS ORDERED: HYDR25TA PO (16:34)
[2020-02-21] MEDS ORDERED: TRES1INJ2 SC (16:35)
[2020-02-21] MEDS ORDERED: INSUHUMDS SC (16:36)
[2020-02-21] MEDS ORDERED: IPRA0.00 NEB (16:40)
[2020-02-21] MEDS ORDERED: RISATAB3 PO (16:40)
[2020-02-21] MEDS ORDERED: LYRI75CA PO (16:40)
[2020-02-21] MEDS ORDERED: TORS20TA2 PO (16:41)
[2020-02-21] MEDS ORDERED: CEPH500C PO (16:43)
[2020-02-21] MEDS ORDERED: VITA50005 PO (16:43)
[2020-02-21] MEDS ORDERED: HYDR-4517 PO (16:43)
[2020-02-21] MEDS ORDERED: KETO2CR TOP (16:43)
== END 2020-02-21 05:59 | disposition left against medical advice (07) ==
LOC: M ED 05:35 → EDBD 05:35 → M ED 05:59
DX: Z53.21 Procedure and treatment not carried out due to patient leaving prior to being seen by health care provider (principal)

== ENCOUNTER 2020-02-21 15:07 | Inpatient (IN) | payer MEDICARE ==
[~2020-02-21] VITALS: Ht 157.5 cm; Wt 101.5 kg
[~2020-02-21 15:07] MED LIST changes: -AMLO1TAB24 PO; +AMLO5TAB6 PO; +ASPI81TA85 PO; -ASPI81TA86 PO; -ISOS1TAB35 PO; +ISOS30TA4 PO; +LISI-538 PO; -LISI20TA33 PO; +LISI40TA PO; -LISI40TA4 PO; +PANT20TA2 PO; -PANT20TA6 PO; -PANT40TA29 PO; +PANT40TA3 PO
[2020-02-21] MEDS ORDERED: methylPREDNISolone INJ 125 MG/2 ML VIAL (J2930) IV ONE (15:45)
[2020-02-21] MEDS: COMBIVENT RESPIMAT 100-20MCG INHALER 4GM INH PRN ×4 (15:56→16:16)
[2020-02-21 16:28] LABS: VENOUS BASE EXCESS 3.1 (-2.0-2.0); VENOUS HCO3 28.2 MEQ/L (23.0-27.0); VENOUS O2 SATURATION 96.9 % (60.0-80.0); VENOUS PARTIAL PRESSURE O2 84.8 mmHg (30.0-50.0); VENOUS PH 7.415 UNITS (7.330-7.430); VENOUS STANDARD HCO3 27.3 MEQ/L; VENOUS TOTAL CO2 29.6 MEQ/L (24.0-28.0)
[2020-02-21] MEDS ORDERED: AMLO5TAB6 PO (16:33)
[2020-02-21 16:34] LABS: BASO % 0.1 % (0.0-1.0); EOS # 0.2 10^3/uL (0.0-0.5); EOS % 1.7 % (0.0-3.0); HEMATOCRIT 36.4 % (36.0-47.0); LYMPH # 2.2 10^3/uL (1.5-5.0); LYMPH % 25.3 % (24.0-44.0); MEAN CORPUSCULAR HEMOGLOBIN 27.3 pg (27.0-33.0); MEAN CORPUSCULAR HGB CONC 30.2 g/dl (32.0-36.5); MEAN CORPUSCULAR VOLUME 90.3 fl (80.0-96.0); MONO % 11.3 % (0.0-5.0); NEUTROPHILS # 5.4 10^3/uL (1.5-8.5); NEUTROPHILS % 61.1 % (36.0-66.0); PLATELET COUNT, AUTOMATED 184 10^3/uL (150-450); RED BLOOD COUNT 4.03 10^6/uL (4.00-5.40); WHITE BLOOD COUNT 8.8 10^3/uL (4.0-10.0)
[2020-02-21] MEDS ORDERED: HYDR25TA PO (16:34)
[2020-02-21] MEDS ORDERED: TRES1INJ2 SC (16:35)
[2020-02-21] MEDS ORDERED: INSUHUMDS SC (16:36)
[2020-02-21] MEDS ORDERED: RISATAB3 PO (16:40)
[2020-02-21] MEDS ORDERED: IPRA0.00 NEB (16:40)
[2020-02-21] MEDS ORDERED: LYRI75CA PO (16:40)
[2020-02-21] MEDS ORDERED: TORS20TA2 PO (16:41)
[2020-02-21] MEDS ORDERED: CEPH500C PO (16:43)
[2020-02-21] MEDS ORDERED: HYDR-4517 PO (16:43)
[2020-02-21] MEDS ORDERED: KETO2CR TOP (16:43)
[2020-02-21] MEDS ORDERED: VITA50005 PO (16:43)
[2020-02-21 17:09] LABS: ALBUMIN 3.6 GM/DL (3.2-5.2); ALT/SGPT 13 U/L (12-78); BILIRUBIN,DIRECT < 0.1 MG/DL (0.0-0.2); BILIRUBIN,TOTAL 0.3 MG/DL (0.2-1.0); BLOOD UREA NITROGEN 42 MG/DL (7-18); CALCIUM LEVEL 9.1 MG/DL (8.8-10.2); CARBON DIOXIDE LEVEL 29 MEQ/L (21-32); CHLORIDE LEVEL 99 MEQ/L (98-107); CK-MB VALUE MASS 1.3 NG/ML (<3.6); CPK CREATINE PHOSPHOKINASE 80 U/L (26-192); GLOMERULAR FILTRATION RATE 27.1 (>39); GLUCOSE, FASTING 166 MG/DL (70-100); MB/CK RELATIVE INDEX 1.62 (< OR =4); NT-PRO BNP 460 PG/ML (<450); POTASSIUM SERUM 4.2 MEQ/L (3.5-5.1); SODIUM LEVEL 134 MEQ/L (136-145); THYROXINE (T4) 9.9 UG/DL (4.5-12.0); TROPONIN I < 0.02 NG/ML (< 0.10)
[2020-02-21] MEDS ORDERED: ALBUTEROL SULFATE 2.5 MG/0.5 ML INH NEB SOLN NEB PRN (17:45)
[2020-02-21] MEDS ORDERED: TORSEMIDE 20 MG TAB PO ONE (18:15)
[2020-02-21] MEDS ORDERED: DEXTROSE 50% 50 ML SYRINGE IV PRN (18:15)
[2020-02-21] MEDS ORDERED: GLUCAGON INJ 1MG VIAL SC PRN (18:15)
[2020-02-21] MEDS ORDERED: MOXIFLOXACIN 400 MG TAB PO ONE (18:15)
[2020-02-21] MEDS ORDERED: GLUCOSE 4GM CHEW TABLET PO PRN (18:15)
[2020-02-21] MEDS: **hydrALAZINE HCL** 25 MG TAB PO SCH (18:40)
[2020-02-21 18:45] VITALS: BP 140/49
[2020-02-21] MEDS: ASPIRIN 81 MG ENTERIC TAB PO SCH (19:00)
[2020-02-21] MEDS: allopurinoL 100 MG TAB PO SCH (19:02)
[2020-02-21] MEDS: ISOSORBIDE MON. (IMDUR) 30 MG XR TAB PO SCH (19:02)
[2020-02-21] MEDS: CALCITRIOL 0.25 MCG CAP (S0169) PO SCH (19:03)
--- NOTE | 2020-02-21 19:11 | REPVR ---
PROCEDURE INFORMATION: Exam: CT Chest Without Contrast Exam date and time: 02/21/2020 6:31 PM Age: 80 years old Clinical indication: Chest pain; Additional info: SOB, chills, R/O early pneumonia TECHNIQUE: Imaging protocol: Computed tomography of the chest without contrast. 3D rendering: MIP and/or 3D reconstructed images were created by the technologist. Radiation optimization: All CT scans at this facility use at least one of these dose optimization techniques: automated exposure control; mA and/or kV adjustment per patient size (includes targeted exams where dose is matched to clinical indication); or iterative reconstruction. COMPARISON: CT Chest without contrast 03/26/2019 3:16 PM FINDINGS: Limitations: Respiratory motion artifact degrades the image quality. Tracheobronchial tree: Intact and patent. Lungs: There is a 10 mm solid pulmonary nodule in the left lung apex (image 12 of the axial series 201), which has developed since the prior CT chest on 03/26/2019. The previously described 15 mm left upper lobe ground-glass dense the in the prior CT chest on 03/26/2019 has resolved. There is a 4 mm solid pulmonary nodule in the superior segment of the left lower lobe (image 31 of the axial series 201), which is unchanged compared to the prior CT chest on 03/26/2019. There is a 3 mm solid pulmonary nodule in the right upper lobe (image 21 of the axial series 201), which is stable compared to the prior CT chest on 03/26/2019. There is scarring or atelectasis of the anterior segment in the right upper lobe. There is atelectasis in the right middle lobe and lingula. Pleural space: Normal. No pneumothorax or pleural effusion. Heart: No cardiomegaly or pericardial effusion. There are coronary artery calcifications. Mediastinum: No mediastinal mass, fluid collection, or pneumomediastinum. Aorta: There is no thoracic aortic aneurysm or intramural hematoma. There are extensive atherosclerotic calcifications. Lymph nodes: There is a 10 mm enlarged right lower paratracheal lymph node, which is stable compared to the prior CT chest on 03/26/2019. No other enlarged lymph nodes are noted in the chest. Gallbladder and bile ducts: There has been a cholecystectomy. There is no fluid collection in the gallbladder fossa. No dilation of the bile ducts is noted. No calcified stones are seen in the common bile duct. Spleen: Unremarkable. No splenomegaly is noted. Adrenals: Unremarkable. No adrenal mass is noted. Bones/joints: No fracture or dislocation is noted. There is no suspicious osteolytic or osteoblastic lesion. There are postoperative changes from a solid interbody fusion at the C6-C7 level. There are degenerative changes in the thoracic spine. Soft tissues: Unremarkable. No soft tissue fluid collection. IMPRESSION: 1. No CT findings to suggest pneumonia. 2. 10 mm solid pulmonary nodule in the left lung apex, which has developed since the prior CT chest on 03/26/2019 and other pulmonary nodules as described above, which are stable compared to the prior CT chest on 03/26/2019. See management guidelines below. 3. 10 mm enlarged right lower paratracheal lymph node, which is stable compared to the prior CT chest on 03/26/2019. [employer] SOC[employer]ET[employer] 2017 GUIDELINES FOR MANAGEMENT OF INCIDENTAL PULMONARY NODULES: Multiple solid nodules >8 mm: In a low risk patient, CT at 3-6 months, then consider CT at 18-24 months. Use most suspicious nodule as guide to management. Follow-up intervals may vary according to size and risk. In a high risk patient, CT at 3-6 months, then at 18-24 months. High Risk Patients as defined in the 2017 Fleischner Society Guidelines: ?History of heavy smoking ?Exposure to asbestos, radium, or uranium ?Family history of lung cancer ?Emphysema and pulmonary fibrosis (IPF in particular) ?Older age ?Sex (females at greater risk than men) ?Race (Blacks and at higher risk) ?Marginal spiculation / suspicious morphology ?Upper lobe location (also apex) ?Multiple nodules (2-5 nodules highest risk) ?Exceptions, such as technically suboptimal scanning REFERENCE: Sylvia H, Naima DP, Donald PATIÑO, et al. Guidelines for Management of Incidental Pulmonary Nodules Detected on CT images: From the Fleischner Society 2017. Radiology, April 2017;284(1):228-243. http://pubs.rsna.org/doi/pdf/[email or web address] Electronically signed by: Pieter Chan On 02/21/2020 19:10:32 PM
[2020-02-21] MEDS ORDERED: ONDANSETRON 4MG/2ML VIAL IV PRN (20:30)
--- NOTE | 2020-02-21 21:51 | HPE ---
DATE OF ADMISSION: 02/21/2020 CHIEF COMPLAINT: Shortness of breath. HISTORY OF THE PRESENT ILLNESS: This is a 80-year-old DO NOT RESUSCITATE, DO NOT INTUBATE. Medical Orders for Life-Sustaining Treatment (MOLST) form has been signed, female who presents to the emergency room with a 1-week history of worsening shortness of breath despite using nebulizer every 6 hours four times daily. She had no fever, was 98 degrees at home, had one episode of nausea but has been having increase in phlegm production and sputum production with clear sputum but thick. Patient said she had one loose stool. No headaches, changes in vision or abdominal pain. She was due to see Dr. Gomez in the office, but due to worsening shortness of breath and complaints of chills, she was encouraged to come to the emergency room (ER) for admission. Patient has not had any sick contacts. No recent travel. Chest x-ray showed no pneumonia. She is chronically on two liters of oxygen and was not hypoxic on arriving. She was 97 to 99% on three liters of oxygen. Denies any weight gain, weight loss. Has chronic lower extremity edema. Did have some paroxysmal nocturnal dyspnea and 2-3 pillow orthopnea. BNP level was 460 and at baseline creatinine of 1.9. Hospitalist was called to admit for chronic obstructive pulmonary disease (COPD) exacerbation. PAST MEDICAL HISTORY: COPD. Chronic hypoxic respiratory failure, on 2-3 liters of oxygen at home. Diabetes. Hypertension. Chronic kidney disease, stage IV. Obstructive sleep apnea. Morbid obesity, body mass index (BMI) of 40.1. Noncompliant with continuous positive airway pressure (CPAP). Hyperlipidemia. PAST SURGICAL HISTORY: section times four. Bilateral knee arthroscopy. Bilateral shoulder repair. SOCIAL HISTORY: Lives alone in her apartment. Has aide that comes to her house. Smoked a pack a day since age of 33, still smokes a few cigarettes, about 5-8 daily. Denies alcohol or recreational drug use. FAMILY HISTORY: ; mother and father from cancer, unknown type. Has two brothers still living and three sisters who are alive and well. ALLERGIES: No known drug allergies. HOME MEDICATIONS: - albuterol 2.5 mg every 4 hours as needed - allopurinol 100 mg daily - Norvasc 5 mg twice a day - aspirin 81 mg daily - calcitriol 0.25 mcg daily - cephalexin 500 mg three times a day - vitamin D one cap weekly - hydralazine 25 mg every 6 hours - Lispro insulin - isosorbide 30 mg daily - ketoconazole topically daily - Bacid one tablet daily - nitroglycerin as needed - Nystatin as needed - Protonix 40 mg daily - Lyrica 75 mg three times a day - Crestor 20 mg nightly - Carafate 1 gram four times a day - torsemide 40 mg twice a day REVIEW OF SYSTEMS: Per history of the present illness; 12-point system otherwise negative. PHYSICAL EXAMINATION: Temperature 97.6, pulse 72, respiratory rate 24, blood pressure 152/66, 97% on 3 liters nasal cannula. Generally, patient is morbidly obese, thick neck, unable to assess for jugular venous distention (JVD). Moist mucous membranes. Patient has mild respiratory distress with conversational dyspnea, about 5-6 word limitation due to respiratory distress. Positive use of respiratory accessory muscles without nasal flaring or tracheal deviation. Lungs are diminished with bilateral coarse rhonchi, fine crackles at the bases, expiratory wheezing, prolonged expiration, prolonged inspiratory/expiratory ratio. Heart: S1, S2, sinus rhythm. No murmurs, rubs or gallops. Abdomen: Obese, soft, nontender. nondistended. Positive bowel sounds. No rebound, guarding. No costovertebral angle tenderness. Extremities: 2+ pitting edema to the sacrum. Chronic venous stasis changes. LABORATORY DATA: White count 8.8, hemoglobin 11, hematocrit 36, platelet count 184, 61% neutrophils. Sodium 134, potassium 4.2, chloride 99, bicarbonate 29, BUN 42, creatinine 1.9, at baseline creatinine, glucose 166, lactic acid 1.2, calcium 9.1, total bilirubin 0.3, AST 9, ALT 13, alkaline phosphatase 84, total CK 80, MB fraction 1.3, troponin less than 0.02, BNP of 460, total protein of 7, albumin of 3.6, TSH of 2.48 and T4 of 9.9. Blood culture pending. Respiratory panel negative. COVID-19 negative. Chest x-ray pending official report. EKG: Sinus rhythm, ventricular rate of 75, moderate T-wave changes, nonspecific, LA interval 193, QRS 81, QT of 386. ASSESSMENT AND PLAN: A 80-year-old DO NOT RESUSCITATE, DO NOT INTUBATE female, history of COPD, chronic hypoxic respiratory failure, on 3 liters of home oxygen at baseline, type 2 diabetes, hypertension, obstructive sleep apnea, noncompliant with CPAP, Chronic kidney disease IV, hyperlipidemia, possible obesity hypoventilation syndrome, metabolic syndrome, still actively smoking, presents to the emergency room with worsening shortness of breath for the past week with cough productive of white thick sputum and one episode of diarrhea. Patient is admitted for the following issues: 1. Acute COPD exacerbation with increase in sputum production, worsening shortness of breath, thick phlegm. Patient has no acute infectious process. Chest x-ray was negative. She is continued on Solu-Medrol 60 mg IV every 6 hours to start at midnight, nebulizer treatments every 4 hours and every 1 hour as needed, check sputum culture and sensitivity, check a CT chest. If early pneumonia is noted, patient will be given intravenous antibiotics. She has had no sick contacts. COVID-19 is negative. Respiratory panel is negative. Blood cultures have been ordered. 2. Chronic hypoxic respiratory failure. Currently at baseline, oxygen requirement of 3 liters. Despite COPD exacerbation, will continue at 3 liters for now. 3. Chronic kidney disease, stage IV. At baseline creatinine. Patient looks fluid overloaded and unable to lie down flat. She denies any weight gain, weight loss with chronic lower extremity edema, but unable to assess for JVD. BNP, however, was less than 500, but will give one dose of extra torsemide 40 mg times one and continue on home dose of torsemide 40 mg twice a day. Continue on fluid restriction, strict intake and output and daily weights. Avoid nephrotoxins and will renally dose all medications. 4. Hypertension. Currently uncontrolled due to difficulty breathing, shortness of breath, currently 152/66. Patient also says that she did not take her medications today. She will be resumed on her home medications. May resume on home dose of amlodipine, hydralazine, isosorbide. 5. Type 2 diabetes, poorly controlled. Check A1c. Continue on consistent-carbohydrate diet, sliding scale, as well as hypoglycemic protocol. 6. Obstructive sleep apnea. Noncompliant with CPAP. Currently on 3 liters of home oxygen. 7. Dyslipidemia. Check lipid panel in the morning. Continue on rosuvastatin. 8. History of reflux. Continue on Carafate and Protonix. CODE STATUS: Medical Orders for Life-Sustaining Treatment (MOLST) form has been signed. She is DO NOT RESUSCITATE, DO NOT INTUBATE. MTDD
[2020-02-21] MEDS: LACTOBACILLUS ACIDOPHILUS CAP (BACID) PO SCH (21:58)
[2020-02-21] MEDS: HumaLOG INSULIN (NovoLOG) PER UNIT SC SCH (21:58)
[2020-02-21] MEDS: SUCRALFATE 1 GM TAB PO SCH (21:59)
[2020-02-21] MEDS: PREGABALIN 75 MG CAP(LYRICA) PO SCH (21:59)
[2020-02-21] MEDS: amLODIPine 5 MG TAB PO SCH (21:59)
[2020-02-21] MEDS: ROSUVASTATIN 10 MG TAB (CRESTOR) PO SCH (21:59)
[2020-02-21 22:00] VITALS: BP 141/60
[2020-02-21] MEDS: TORSEMIDE 20 MG TAB PO SCH (22:39)
--- NOTE | 2020-02-21 23:07 | REP ---
CHEST, SINGLE VIEW: Single view of the chest is performed and compared to prior study 01/08/2020. There is cardiomegaly noted. There is mild chronic interstitial prominence in the lung bases. No acute infiltrate is seen. There is calcification of the thoracic aorta. Mediastinal silhouette is unchanged. IMPRESSION: Cardiomegaly and chronic changes are stable. No acute infiltrate. Electronically Signed by Hossein Larson MD 02/22/2020 12:14 P
[2020-02-21] MEDS: ALBUTEROL SULFATE 2.5 MG/0.5 ML INH NEB SOLN NEB SCH ×2 (23:15→23:54)
[2020-02-22] MEDS: methylPREDNISolone INJ 125 MG/2 ML VIAL (J2930) IV SCH ×4 (00:15→17:00)
[2020-02-22 00:31] LABS: CK-MB VALUE MASS 1.8 NG/ML (<3.6); CPK CREATINE PHOSPHOKINASE 93 U/L (26-192); MB/CK RELATIVE INDEX 1.94 (< OR =4); TROPONIN I < 0.02 NG/ML (< 0.10)
[2020-02-22] MEDS: ALBUTEROL SULFATE 2.5 MG/0.5 ML INH NEB SOLN NEB SCH ×6 (04:00→23:15)
[2020-02-22] MEDS: MOXIFLOXACIN 400 MG TAB PO SCH (05:39)
[2020-02-22] MEDS: **hydrALAZINE HCL** 25 MG TAB PO SCH ×4 (05:42→17:00)
[2020-02-22 06:00] VITALS: BP 144/59
[2020-02-22 06:35] LABS: HEMATOCRIT 35.1 % (36.0-47.0); HEMOGLOBIN 10.8 g/dl (12.0-15.5); LYMPH # 0.6 10^3/uL (1.5-5.0); LYMPH % 11.2 % (24.0-44.0); MEAN CORPUSCULAR HEMOGLOBIN 27.6 pg (27.0-33.0); MEAN CORPUSCULAR HGB CONC 30.8 g/dl (32.0-36.5); MEAN CORPUSCULAR VOLUME 89.5 fl (80.0-96.0); MONO # 0.1 10^3/uL (0.0-0.8); MONO % 1.5 % (0.0-5.0); NEUTROPHILS # 4.5 10^3/uL (1.5-8.5); NEUTROPHILS % 85.6 % (36.0-66.0); PLATELET COUNT, AUTOMATED 167 10^3/uL (150-450); RED BLOOD COUNT 3.92 10^6/uL (4.00-5.40); WHITE BLOOD COUNT 5.3 10^3/uL (4.0-10.0)
[2020-02-22 06:51] LABS: HEMOGLOBIN A1c 8.4 %
--- NOTE | 2020-02-22 07:14 | ECGEPIP ---
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
[2020-02-22 07:25] LABS: BLOOD UREA NITROGEN 48 MG/DL (7-18); CARBON DIOXIDE LEVEL 30 MEQ/L (21-32); CHLORIDE LEVEL 96 MEQ/L (98-107); CHOLESTEROL LEVEL 120 MG/DL (<200); CHOLESTEROL RISK RATIO 2.068 (<5); CK-MB VALUE MASS 1.9 NG/ML (<3.6); CPK CREATINE PHOSPHOKINASE 123 U/L (26-192); CREATININE FOR GFR 2.17 MG/DL (0.55-1.30); GLOMERULAR FILTRATION RATE 23.3 (>39); GLUCOSE, FASTING 357 MG/DL (70-100); HDL CHOLESTEROL 58 MG/DL (>40); LDL CHOLESTEROL 42 MG/DL (<100); MB/CK RELATIVE INDEX 1.54 (< OR =4); NON-HDL-C 62 MG/DL; POTASSIUM SERUM 4.9 MEQ/L (3.5-5.1); SODIUM LEVEL 132 MEQ/L (136-145); TRIGLYCERIDES LEVEL 99 MG/DL (<150); TROPONIN I < 0.02 NG/ML (< 0.10)
[2020-02-22] MEDS: allopurinoL 100 MG TAB PO SCH (08:09)
[2020-02-22] MEDS: SUCRALFATE 1 GM TAB PO SCH ×4 (08:09→21:54)
[2020-02-22] MEDS: LACTOBACILLUS ACIDOPHILUS CAP (BACID) PO SCH ×2 (08:09→21:54)
[2020-02-22] MEDS: PREGABALIN 75 MG CAP(LYRICA) PO SCH ×3 (08:10→21:54)
[2020-02-22] MEDS: CALCITRIOL 0.25 MCG CAP (S0169) PO SCH (08:10)
[2020-02-22] MEDS: TORSEMIDE 20 MG TAB PO SCH ×2 (08:10→16:56)
[2020-02-22] MEDS: PANTOPRAZOLE 40MG TAB (PROTONIX) PO SCH (08:10)
[2020-02-22] MEDS: ASPIRIN 81 MG ENTERIC TAB PO SCH (08:10)
[2020-02-22] MEDS: HumaLOG INSULIN (NovoLOG) PER UNIT SC SCH ×4 (08:11→21:00)
[2020-02-22] MEDS: ISOSORBIDE MON. (IMDUR) 30 MG XR TAB PO SCH (08:15)
[2020-02-22] MEDS: amLODIPine 5 MG TAB PO SCH ×2 (08:15→21:54)
[2020-02-22] MEDS: traMADol 50 MG TAB PO PRN (09:41)
--- NOTE | 2020-02-22 10:17 | REP ---
Right lower extremity Duplex Doppler venous ultrasound: Real time compression and duplex Doppler interrogation of the right lower extremity deep venous system is performed. The right common femoral, superficial femoral and popliteal veins are fully compressible with transducer pressure and demonstrate normal spontaneous and phasic flow, without evidence of deep venous thrombosis. Impression: No evidence of deep venous thrombosis of the right lower extremity femoral popliteal venous system. Electronically Signed by Hossein Larson MD 02/22/2020 10:08 A
[2020-02-22 14:00] VITALS: BP 148/61
--- NOTE | 2020-02-22 15:51 | IPNPDOC ---
Text Note Date of Service The patient was seen on 02/22/20. NOTE PHYSICAL EXAMINATION: Generally, patient is morbidly obese, in no respiratory distress Lungs are diminished with bilateral very fine rhonchi, and mild expiratory wheezing. Heart: S1, S2, sinus rhythm. No murmurs, rubs or gallops. Abdomen: Obese, soft, nontender. nondistended. Positive bowel sounds. No rebound, guarding. No costovertebral angle tenderness. Extremities: 2+ pitting edema to the sacrum. Chronic venous stasis changes. Labs reviewed. Radiology reviewed Chest x-ray pending official report. ASSESSMENT AND PLAN: A 80-year-old DO NOT RESUSCITATE, DO NOT INTUBATE female, history of COPD, chronic hypoxic respiratory failure, on 3 liters of home oxygen at baseline, type 2 diabetes, hypertension, obstructive sleep apnea, noncompliant with CPAP, Chronic kidney disease IV, hyperlipidemia, possible obesity hypoventilation syndrome, metabolic syndrome, still actively smoking, presents to the emergency room with worsening shortness of breath for the past week with cough productive of white thick sputum and one episode of diarrhea. 1. Acute COPD exacerbation with increase in sputum production, worsening shortness of breath, thick phlegm. Patient has no acute infectious process. Chest x-ray was negative. She was started on Solu-Medrol 60 mg IV every 6 hours. She'll be de-escalate to 40 twice a day today. Nebulizer treatments every 4 hours and every 1 hour as needed. COVID-19 is negative. Respiratory panel is negative. Blood cultures have been ordered. She is continued on azithromycin. Counseled in detail regarding smoke cessation. She'll be optimized on her inhalers as well with a rescue inhaler and long-acting beta agonist on discharg e. 2. Chronic hypoxic respiratory failure. Currently at baseline, oxygen requirement of 3 liters. Despite COPD exacerbation, will continue at 3 liters for now. 3. Chronic kidney disease, stage IV. At baseline creatinine. Continue input output monitoring and avoid nephrotoxic drugs 4. Hypertension. resume on home dose of amlodipine, hydralazine, isosorbide. 5. Type 2 diabetes, poorly controlled. Check A1c. Continue on consistent- carbohydrate diet, sliding scale, as well as hypoglycemic protocol. 6. Obstructive sleep apnea. Noncompliant with CPAP. Currently on 3 liters of home oxygen. 7. Dyslipidemia. Check lipid panel in the morning. Continue on rosuvastatin. 8. History of reflux. Continue on Carafate and Protonix. CODE STATUS: Medical Orders for Life-Sustaining Treatment (MOLST) form has been signed. She is DO NOT RESUSCITATE, DO NOT INTUBATE. PT, OT working with her and once she is cleared from PT, OT standpoint will be discharged home. She continues to be on baseline 3 L of oxygen VS,Fishbone, I+O VS, Fishbone, I+O Laboratory Tests 02/21/20 16:18 02/22/20 05:47 Vital Signs Date Time Temp Pulse Resp B/P (MAP) Pulse Ox O2 Delivery O2 Flow Rate FiO2 02/22/20 14:00 97.3 78 20 148/61 (90) 99 Nasal Cannula 3.0 I&O- Last 24 Hours up to 6 AM 02/22/20 06:00 Intake Total 450 ml Output Total 300 ml Balance 150 ml JORGE AVELAR MD February 22, 2020 15:51
[2020-02-22] MEDS ORDERED: LEVEMIR (INSULIN DETEMIR) 1 UNITS/0.01ML As Ordered ONE (18:50)
[2020-02-22] MEDS ORDERED: LEVEMIR (INSULIN DETEMIR) 1 UNITS/0.01ML SC SCH (21:00)
[2020-02-22] MEDS ORDERED: HumaLOG INSULIN (NovoLOG) PER UNIT SC ONE ×2 (21:45→23:00)
[2020-02-22] MEDS ORDERED: LEVEMIR (INSULIN DETEMIR) 1 UNITS/0.01ML SC ONE (21:45)
[2020-02-22] MEDS: ROSUVASTATIN 10 MG TAB (CRESTOR) PO SCH (21:54)
[2020-02-22] MEDS: HEPARIN SOD (PORCINE) 5000UNITS/ML VIAL (J1644 PER 1000UNITS) SQ SCH (21:54)
[2020-02-22 22:00] VITALS: BP 124/56
[2020-02-23] MEDS: **hydrALAZINE HCL** 25 MG TAB PO SCH ×4 (00:22→18:41)
[2020-02-23] MEDS: ALBUTEROL SULFATE 2.5 MG/0.5 ML INH NEB SOLN NEB SCH ×5 (04:00→19:18)
[2020-02-23 06:00] VITALS: BP 114/62
[2020-02-23] MEDS ORDERED: LEVEMIR (INSULIN DETEMIR) 1 UNITS/0.01ML SC ONE (06:00)
[2020-02-23] MEDS: methylPREDNISolone INJ 125 MG/2 ML VIAL (J2930) IV SCH ×2 (06:18)
[2020-02-23] MEDS: MOXIFLOXACIN 400 MG TAB PO SCH (06:18)
[2020-02-23 06:25] LABS: BASO % 0.1 % (0.0-1.0); HEMATOCRIT 33.1 % (36.0-47.0); HEMOGLOBIN 10.2 g/dl (12.0-15.5); LYMPH # 0.6 10^3/uL (1.5-5.0); LYMPH % 4.6 % (24.0-44.0); MEAN CORPUSCULAR HEMOGLOBIN 27.6 pg (27.0-33.0); MEAN CORPUSCULAR HGB CONC 30.8 g/dl (32.0-36.5); MEAN CORPUSCULAR VOLUME 89.5 fl (80.0-96.0); MONO # 0.9 10^3/uL (0.0-0.8); MONO % 6.6 % (0.0-5.0); NEUTROPHILS # 11.8 10^3/uL (1.5-8.5); NEUTROPHILS % 86.9 % (36.0-66.0); PLATELET COUNT, AUTOMATED 185 10^3/uL (150-450); WHITE BLOOD COUNT 13.6 10^3/uL (4.0-10.0)
[2020-02-23 06:59] LABS: CALCIUM LEVEL 8.8 MG/DL (8.8-10.2); CREATININE FOR GFR 3.25 MG/DL (0.55-1.30); GLOMERULAR FILTRATION RATE 14.6 (>39); POTASSIUM SERUM 5.2 MEQ/L (3.5-5.1)
[2020-02-23] MEDS: ADVAIR HFA 230/21MCG INHALER INH SCH ×2 (08:00→19:15)
[2020-02-23] MEDS ORDERED: predniSONE 20 MG TAB PO SCH (08:30)
[2020-02-23] MEDS ORDERED: LEVEMIR (INSULIN DETEMIR) 1 UNITS/0.01ML SC SCH ×3 (09:00→21:00)
[2020-02-23] MEDS: SUCRALFATE 1 GM TAB PO SCH ×4 (09:03→20:05)
[2020-02-23] MEDS: ASPIRIN 81 MG ENTERIC TAB PO SCH (09:03)
[2020-02-23] MEDS: allopurinoL 100 MG TAB PO SCH (09:03)
[2020-02-23] MEDS: LACTOBACILLUS ACIDOPHILUS CAP (BACID) PO SCH ×2 (09:03→20:04)
[2020-02-23] MEDS: PREGABALIN 75 MG CAP(LYRICA) PO SCH ×3 (09:03→20:05)
[2020-02-23] MEDS: PANTOPRAZOLE 40MG TAB (PROTONIX) PO SCH (09:04)
[2020-02-23] MEDS: HEPARIN SOD (PORCINE) 5000UNITS/ML VIAL (J1644 PER 1000UNITS) SQ SCH ×2 (09:04→20:05)
[2020-02-23] MEDS: CALCITRIOL 0.25 MCG CAP (S0169) PO SCH (09:04)
[2020-02-23] MEDS: HumaLOG INSULIN (NovoLOG) PER UNIT SC SCH ×4 (09:06→21:00)
[2020-02-23] MEDS: amLODIPine 5 MG TAB PO SCH ×2 (09:07→20:07)
[2020-02-23] MEDS: ISOSORBIDE MON. (IMDUR) 30 MG XR TAB PO SCH (09:07)
[2020-02-23] MEDS ORDERED: PATIROMER SORBITEX CALCIUM 8.4 GM POWDER PACKET (VELTASSA) PO ONE (10:00)
[2020-02-23] MEDS: traMADol 50 MG TAB PO PRN ×2 (11:00→20:04)
[2020-02-23] MEDS ORDERED: NS 500 ML IV ONE (11:45)
[2020-02-23] MEDS ORDERED: HumaLOG INSULIN (NovoLOG) PER UNIT SC ONE ×2 (13:00→21:00)
[2020-02-23 14:00] VITALS: BP 124/54
[2020-02-23 15:18] LABS: TOTAL PROTEIN,RANDOM URINE 10.1 MG/DL (0.0-12.0)
--- NOTE | 2020-02-23 18:19 | IPNPDOC ---
Date Seen The patient was seen on 02/23/20. Progress Note SUBJECTIVE: Patient seen and examined at the bedside this morning. She states her breathing is much better. She has had several issues with elevated blood glucose throughout the day today, requiring large doses of both short-acting and long- acting insulin. This afternoon, I became aware that the patient is eating sweets brought to her from the cafeteria. Her diet was edited, and limitation placed on amount of sweets she is allowed to consume. OBJECTIVE PHYSICAL EXAMINATION: VITAL SIGNS: Please see below. GENERAL APPEARANCE: Laying in bed, appears stated age, no acute distress, calm, cooperative HEENT: EOMI, PERRLA, neck is supple with no thyromegaly or lymphadenopathy RESPIRATORY: Somewhat diminished breath sounds bilaterally with expiratory wheezing in the right lower lobe CARDIOVASCULAR: no JVD, RRR,no murmurs/rubs/gallops, normal S1 and S2 ABDOMEN: +BS, soft, nontender to palpation in all four quadrants, no masses/organomegaly EXTREMITIES: Chronic venous stasis changes, 2+ pitting edema to the sacrum NEUROLOGICAL: CN 2-12 intact, No obvious focal deficits PSYCHIATRIC: normal mood/affect Skin: No rashes or ulcers appreciated, warm and well-perfused LN: No significant cervical or inguinal lymphadenopathy LABORATORY DATA, IMAGING STUDIES, MICROBIOLOGY: Please see below. ASSESSMENT AND PLAN: This is a 80-year-old female with history of COPD on 3 L oxygen at home who presented with shortness of breath, found to have COPD exacerbation. She was treated with antibiotics and steroids. PROBLEMS: 1. Acute hypoxic respiratory failure 2/2 COPD exacerbation: -Solu-Medrol changed to 40 mg prednisone daily -Patient is at her home dose of oxygen, 3 L -Respiratory panel negative -Moxifloxacin day 2/6 today. -Continue Advair 2. CKD IV: -Renal function worse today -Holding home Torsemide 3. DM2: -Continue Levemir + SSI/hypoglycemic protocol -Will restrict diet to limit amount of sweets 4. HTN: -Continue home Amlodipine, Hydralazine, Isosorbide 5. DLP: -Continue Rosuvastatin 6. GERD: -Continue home Carafate/Protonix DISPOSITION: Pending improvement in blood sugars. Likely dc tomorrow DVT ppx: SQH VS, I&O, 24H, Fishbone Vital Signs/I&O Vital Signs Date Time Temp Pulse Resp B/P (MAP) Pulse Ox O2 Delivery O2 Flow Rate FiO2 02/23/20 14:00 97.9 83 19 124/54 (77) 95 Nasal Cannula 3.0 I&O- Last 24 Hours up to 6 AM 02/23/20 06:00 Intake Total 1140 ml Output Total 750 ml Balance 390 ml Laboratory Data 24H LABS Laboratory Tests 2 02/22/20 20:20: Bedside Glucose (Misc Panel) 572*H 02/22/20 20:44: Bedside Glucose Confirm (Misc) 536*H 02/22/20 22:39: Bedside Glucose (Misc Panel) > 600*H 02/22/20 22:42: Bedside Glucose (Misc Panel) 597*H 02/23/20 00:16: Bedside Glucose (Misc Panel) 525*H 02/23/20 03:03: Bedside Glucose (Misc Panel) 465H 02/23/20 05:37: Bedside Glucose (Misc Panel) 435H 02/23/20 05:51: Immature Granulocyte % (Auto) 1.8, Neutrophils (%) (Auto) 86.9H, Lymphocytes (%) (Auto) 4.6L, Monocytes (%) (Auto) 6.6H, Eosinophils (%) (Auto) 0.0, Basophils (%) (Auto) 0.1, Neutrophils # (Auto) 11.8H, Lymphocytes # (Auto) 0.6L, Monocytes # (Auto) 0.9H, Eosinophils # (Auto) 0.0, Basophils # (Auto) 0.0, Nucleated Red Blood Cells % (auto) 0.0, Anion Gap 10, Glomerular Filtration Rate 14.6L, Calcium Level 8.8 02/23/20 12:14: Bedside Glucose (Misc Panel) 510*H 02/23/20 12:35: Bedside Glucose Confirm (Misc) 500*H 02/23/20 14:05: Bedside Glucose (Misc Panel) 512*H 02/23/20 14:11: Bedside Glucose (Misc Panel) 476H 02/23/20 14:12: Urine Random Creatinine 218.0, Urine Random Total Protein 10.1 02/23/20 17:07: Bedside Glucose (Misc Panel) 531*H 02/23/20 17:17: Bedside Glucose (Misc Panel) 533*H 02/23/20 17:35: CBC/BMP Laboratory Tests 02/23/20 05:51 Microbiology Microbiology 02/21/20 Blood Culture - Preliminary, Resulted No Growth after 48 hours. All Specime... 02/21/20 Blood Culture - Preliminary, Resulted No Growth after 48 hours. All Specime... 02/21/20 Respiratory Virus Panel (PCR) (DANITA) - Final, Complete GME ATTESTATION GME ATTESTATION My faculty preceptor for this patient encounter was physically present during the encounter and was fully available. All aspects of the patient interview, examination, medical decision making process, and medical care plan development were reviewed and approved by the faculty preceptor. The faculty preceptor is aware and concurs with the plan as stated in the body of this note and will attest to such by his/her cosignature. ATTENDING NOTE Patient was seen and examined by me and agree with the above assessment and plan HALEY SLAAZAR MD February 23, 2020 18:19 JORGE AVELAR MD February 25, 2020 17:40
[2020-02-23] MEDS ORDERED: LEVEMIR (INSULIN DETEMIR) 1 UNITS/0.01ML As Ordered ONE ×2 (18:38→18:47)
[2020-02-23] MEDS: ROSUVASTATIN 10 MG TAB (CRESTOR) PO SCH (20:04)
[2020-02-23] MEDS ORDERED: NS 1,000 ML IV SCH (21:00)
[2020-02-23 22:00] VITALS: BP 119/50
[2020-02-24] VITALS (15 sets, daily range): BP systolic 96–152; BP diastolic 53–93; O2SAT 93
[2020-02-24] MEDS: ALBUTEROL SULFATE 2.5 MG/0.5 ML INH NEB SOLN NEB SCH ×5 (00:02→15:11)
[2020-02-24] MEDS: ACETAMINOPHEN TAB 650MG DOSE (2X325MG) PO PRN ×3 (00:18→18:22)
[2020-02-24] MEDS ORDERED: INSULIN REGULAR IN 0.9 % NACL 100 UNIT in IV 1 EA IV SCH ×2 (00:38)
[2020-02-24] MEDS ORDERED: NS 1,000 ML IV SCH (00:45)
[2020-02-24 01:13] LABS: ACETONE/KETONE 1.21 MG/DL (<2.81); CALCIUM LEVEL 8.9 MG/DL (8.8-10.2); CREATININE FOR GFR 3.94 MG/DL (0.55-1.30); GLOMERULAR FILTRATION RATE 11.7 (>39)
[2020-02-24] MEDS ORDERED: INSULIN REGULAR 100UNITS IN 0.9% SODIUM CHLORIDE 100ML IVBAG As Ordered ONE (01:34)
[2020-02-24 01:39] LABS: ABG BASE EXCESS -3.7 (-2.0-2.0); ABG HCO3 21.9 MEQ/L (22.0-26.0); ABG O2 SATURATION 94.6 % (95.0-99.0); ABG PARTIAL PRESSURE CO2 41.6 mmHg (35.0-45.0); ABG PARTIAL PRESSURE O2 75.3 mmHg (75.0-100.0); ABG STANDARD HCO3 21.4 MEQ/L (22.0-26.0); ABG TOTAL CO2 23.2 MEQ/L (23.0-31.0); ABG pH (ARTERIAL) 7.339 UNITS (7.350-7.450)
--- NOTE | 2020-02-24 03:32 | IPNPDOC ---
Text Note Date of Service The patient was seen on 02/24/20. NOTE Subjective: Evaluated patient overnight due to persistent hyperglycemia with blood glucose over 600. Patient was complaining of some jaw pain and shakiness, neither which were new. She does state that she feels more shaky than normal. She denies any nausea, abdominal pain, diarrhea, chest pain, shortness of breath. Objective: GENERAL: Alert, comfortable, in no acute distress, appears somewhat tremulous HEENT: Normocephalic, atraumatic, moist mucous membranes CARDIOVASCULAR: Regular rate and rhythm, normal S1 and S2. No murmurs, rubs, or gallops RESPIRATORY: Diminished breath sounds bilaterally with expiratory wheezing throughout. ABDOMEN: Soft, nontender, nondistended, bowel sounds present EXTREMITIES: 1+ pitting edema in bilateral lower extremities NEUROLOGIC: No focal deficits appreciated Assessment: 80-year-old female admitted to the hospital for COPD exacerbation, has been on steroids, with persistently high fingerstick glucose measurements above 600, concerning for hyperosmolar hyperglycemic state. Plan: Patient has been transferred to the ICU in order to be started on insulin drip for better glucose control. Check stat BMP, serum ketones, UA, and ABG. Monitor FSBS every hour. Monitor BMP every 4 hours. Gentle IV fluid hydration with normal saline 60 mL per hour, monitor closely for fluid overload, recheck NT-proBNP for CHF. VS,Fishbone, I+O VS, Fishbone, I+O Laboratory Tests 02/23/20 05:51 02/23/20 23:21 Vital Signs Date Time Temp Pulse Resp B/P (MAP) Pulse Ox O2 Delivery O2 Flow Rate FiO2 02/24/20 01:33 97.9 77 22 144/66 (92) 90 Nasal Cannula 3.0 I&O- Last 24 Hours up to 6 AM 02/24/20 06:00 Intake Total 1940 ml Output Total 275 ml Balance 1665 ml GME ATTESTATION GME ATTESTATION My faculty preceptor for this patient encounter was physically present during the encounter and was fully available. All aspects of the patient interview, examination, medical decision making process, and medical care plan development were reviewed and approved by the faculty preceptor. The faculty preceptor is aware and concurs with the plan as stated in the body of this note and will attest to such by his/her cosignature. ATTENDING NOTE PHYSICAL EXAMINATION: VS: Please see above. GENERAL: [id number], tremoring-baseline HEENT: Normocephalic, atraumatic, moist mucous membranes CARDIOVASCULAR: Regular rate and rhythm, normal S1 and S2. No murmurs, rubs, or gallops RESPIRATORY: Diminished breath sounds bilaterally with expiratory wheezing throughout. ABDOMEN: Soft, nontender, nondistended, bowel sounds present EXTREMITIES: 1+ pitting edema in bilateral lower extremities INTEGUMENTARY: bilateral lower ext skin changes, +1 edema-nonpitting bilaterally NEUROLOGIC: No focal deficits appreciated Psych: Mood and affect wnl Patient has been increasingly hyperglycemic despite standard treatment. Decision was made to begin insulin gtt and transfer to ICU for close monitoring. I also saw patient and agree with resident note attached. TRINA KNIGHT D.O. February 24, 2020 03:32 Gabriela House MD February 24, 2020 19:30
[2020-02-24 03:52] LABS: MAGNESIUM LEVEL 1.7 MG/DL (1.8-2.4); PHOSPHORUS LEVEL 3.9 MG/DL (2.5-4.9)
[2020-02-24 04:43] LABS: BASO % 0.1 % (0.0-1.0); EOS % 0.3 % (0.0-3.0); HEMATOCRIT 30.8 % (36.0-47.0); HEMOGLOBIN 9.7 g/dl (12.0-15.5); LYMPH # 0.7 10^3/uL (1.5-5.0); LYMPH % 4.5 % (24.0-44.0); MEAN CORPUSCULAR HEMOGLOBIN 28.2 pg (27.0-33.0); MEAN CORPUSCULAR HGB CONC 31.5 g/dl (32.0-36.5); MEAN CORPUSCULAR VOLUME 89.5 fl (80.0-96.0); MONO # 1.1 10^3/uL (0.0-0.8); MONO % 7.7 % (0.0-5.0); NEUTROPHILS # 12.5 10^3/uL (1.5-8.5); PLATELET COUNT, AUTOMATED 184 10^3/uL (150-450); RED BLOOD COUNT 3.44 10^6/uL (4.00-5.40); WHITE BLOOD COUNT 14.7 10^3/uL (4.0-10.0)
[2020-02-24 05:07] LABS: CALCIUM LEVEL 8.7 MG/DL (8.8-10.2); CREATININE FOR GFR 3.87 MG/DL (0.55-1.30); GLOMERULAR FILTRATION RATE 11.9 (>39); MAGNESIUM LEVEL 1.7 MG/DL (1.8-2.4); PHOSPHORUS LEVEL 4.2 MG/DL (2.5-4.9)
[2020-02-24] MEDS: **hydrALAZINE HCL** 25 MG TAB PO SCH ×4 (05:40→17:54)
[2020-02-24] MEDS ORDERED: MAG SULF 1GM/100ML (MAG RUN) 1 GM in IV 1 EA IV ONE (06:00)
[2020-02-24] MEDS: MOXIFLOXACIN 400 MG TAB PO SCH (06:10)
[2020-02-24] MEDS: INSULIN IV RATE CHANGE DOCUMENTATION ML/HR XX SCH ×3 (07:20→09:50)
[2020-02-24] MEDS: ADVAIR HFA 230/21MCG INHALER INH SCH ×2 (07:28→19:23)
[2020-02-24 07:34] LABS: CHOLESTEROL RISK RATIO 2.354 (<5)
[2020-02-24 08:07] LABS: ABG BASE EXCESS -1.9 (-2.0-2.0); ABG O2 SATURATION 95.8 % (95.0-99.0); ABG PARTIAL PRESSURE CO2 45.7 mmHg (35.0-45.0); ABG STANDARD HCO3 22.8 MEQ/L (22.0-26.0); ABG TOTAL CO2 25.4 MEQ/L (23.0-31.0); ABG pH (ARTERIAL) 7.338 UNITS (7.350-7.450)
[2020-02-24 08:20] LABS: CREATININE FOR GFR 3.94 MG/DL (0.55-1.30); GLOMERULAR FILTRATION RATE 11.7 (>39); POTASSIUM SERUM 4.7 MEQ/L (3.5-5.1)
[2020-02-24] MEDS: LACTOBACILLUS ACIDOPHILUS CAP (BACID) PO SCH ×2 (09:37→20:31)
[2020-02-24] MEDS: ASPIRIN 81 MG ENTERIC TAB PO SCH (09:37)
[2020-02-24] MEDS: ISOSORBIDE MON. (IMDUR) 30 MG XR TAB PO SCH (09:38)
[2020-02-24] MEDS: SUCRALFATE 1 GM TAB PO SCH ×4 (09:39→20:32)
[2020-02-24] MEDS: PREGABALIN 75 MG CAP(LYRICA) PO SCH ×3 (09:39→20:32)
[2020-02-24] MEDS: amLODIPine 5 MG TAB PO SCH ×2 (09:39→20:34)
[2020-02-24] MEDS: PANTOPRAZOLE 40MG TAB (PROTONIX) PO SCH (09:39)
[2020-02-24] MEDS: CALCITRIOL 0.25 MCG CAP (S0169) PO SCH (09:39)
[2020-02-24] MEDS: HEPARIN SOD (PORCINE) 5000UNITS/ML VIAL (J1644 PER 1000UNITS) SQ SCH ×2 (09:40→20:32)
--- NOTE | 2020-02-24 11:38 | IPNPDOC ---
Date Seen The patient was seen on 02/24/20. Progress Note SUBJECTIVE: The patient was transferred to the ICU overnight for persistent hyperglycemia concerning for hyperglycemic hyperosmolar state. She was started on an insulin drip and fluids and this morning her blood sugars is down to the low 200s. She has no specific complaints other than some wheezing and that she feels very hungry. She denies any dizziness/lightheadedness nor any abdominal pain. A tabares cather was ordered this morning for critical monitoring but the patient refused to have one put in. She only urinated about 400cc in the past 24 hours and her renal function has gotten worse. OBJECTIVE PHYSICAL EXAMINATION: VITAL SIGNS: Please see below. GENERAL APPEARANCE: Laying in bed, audibly wheezing, appears stated age, no acute distress, calm, cooperative HEENT: EOMI, PERRLA, neck is supple with no thyromegaly or lymphadenopathy RESPIRATORY: Diminished breath sounds bilaterally with scattered rhonchi bilaterally CARDIOVASCULAR: unable to determine JVD due to large neck, RRR, no murmurs/rubs/gallops, normal S1 and S2 ABDOMEN: +BS, soft, nontender to palpation in all four quadrants, no masses/organomegaly EXTREMITIES: Chronic venous stasis changes, 2+ pitting edema to the sacrum NEUROLOGICAL: CN 2-12 intact, No obvious focal deficits PSYCHIATRIC: normal mood/affect Skin: No rashes or ulcers appreciated, warm and well-perfused LN: No significant cervical or inguinal lymphadenopathy LABORATORY DATA, IMAGING STUDIES, MICROBIOLOGY: Please see below. ASSESSMENT AND PLAN: This is a 80-year-old female with history of COPD on 3 L oxygen at home who presented with shortness of breath, found to have COPD exacerbation. She was treated with antibiotics and steroids. She was transferred to the ICU overnight as she was found to he persistently hyperglycemic in the 400s-500s concerning for hyperglycemic hyperosmolar state. PROBLEMS: 1. Hyperglycemia: likely 2/2 to diet noncompliance vs HHS vs steroid use -ABG this AM slight acidosis at 7.338 and consistent with chronic hypercapnia at pCO2 45 -Plasma osmolality found to be 318 (HHS typically diagnosed >320) -Patient has not had any altered mental status to support HHS diagnosis -Moxifloxacin and Prednisone stopped, as it could cause hyperglycemia. No other of her meds with this side effect profile -Insulin drip stopped this AM, switched to Levemir 40 BID + SSI with hypoglycemic protocol 2. Acute hypoxic respiratory failure 2/2 COPD exacerbation: -Steroids d/c'd due to hyperglycemia -Patient is at her home dose of oxygen, 3 L -Respiratory panel negative -Abx d/c'd -Continue Advair -Dunonebs ordered for wheezing 3. CKD IV: -Renal function worse today -Renal US ordered -Holding home Torsemide 4. DM2: -Continue Levemir + SSI/hypoglycemic protocol -Will restrict diet to limit amount of sweets 5. HTN: -Continue home Amlodipine, Hydralazine, Isosorbide 6. DLP: -Continue Rosuvastatin 7. GERD: -Continue home Carafate/Protonix DISPOSITION: Pending inprovement in blood sugars and breathing DVT ppx: SQH VS, I&O, 24H, Fishbone Vital Signs/I&O Vital Signs Date Time Temp Pulse Resp B/P (MAP) Pulse Ox O2 Delivery O2 Flow Rate FiO2 02/24/20 09:39 80 116/53 02/24/20 09:00 24 90 Nasal Cannula 3.0 02/24/20 08:00 98.3 I&O- Last 24 Hours up to 6 AM 02/24/20 06:00 Intake Total 2240 ml Output Total 325 ml Balance 1915 ml Laboratory Data 24H LABS Laboratory Tests 2 02/23/20 12:14: Bedside Glucose (Misc Panel) 510*H 02/23/20 12:35: Bedside Glucose Confirm (Misc) 500*H 02/23/20 14:05: Bedside Glucose (Misc Panel) 512*H 02/23/20 14:11: Bedside Glucose (Misc Panel) 476H 02/23/20 14:12: Urine Random Creatinine 218.0, Urine Random Total Protein 10.1 02/23/20 17:07: Bedside Glucose (Misc Panel) 531*H 02/23/20 17:17: Bedside Glucose (Misc Panel) 533*H 02/23/20 17:35: Bedside Glucose Confirm (Misc) 530*H 02/23/20 20:32: Bedside Glucose (Misc Panel) > 600*H 02/23/20 20:53: Bedside Glucose Confirm (Misc) 612*H 02/23/20 22:17: Bedside Glucose (Misc Panel) > 600*H 02/23/20 23:21: Bedside Glucose Confirm (Misc) 687*H, Anion Gap 13, Glomerular Filtration Rate 11.7L, Calcium Level 8.9, Phosphorus Level 3.9, Magnesium Level 1.7L, KM-Eek-U-Type Natriuretic Peptide 3375H, B-Hydroxybutyrate 1.21 02/24/20 01:14: Blood Gas Bicarbonate Standard 21.4L, Arterial Blood pH 7.339L, Arterial Blood Partial Pressure CO2 41.6, Arterial Blood Partial Pressure O2 75.3, Arterial Blood Total CO2 23.2, Arterial Blood HCO3 21.9L, Arterial Blood Base Excess - 3.7L, Arterial Blood Oxygen Saturation 94.6L 02/24/20 01:16: Urine Color YELLOW, Urine Appearance HAZY, Urine pH 5.0, Urine Specific [place] 1.016, Urine Protein NEGATIVE, Urine Glucose (UA) 2+H, Urine Ketones NEGATIVE, Urine Blood NEGATIVE, Urine Nitrite NEGATIVE, Urine Bilirubin NEGATIVE, Urine Urobilinogen 0.2, Urine Leukocyte Esterase NEGATIVE, Urine WBC (Auto) 1, Urine RBC (Auto) 1, Urine Hyaline Casts (Auto) 1, Urine Bacteria (Auto) 1+H, Urine Squamous Epithelial Cells 6, Urine Mucus (Auto) SMALL, Urine Sperm (Auto) 02/24/20 01:41: Bedside Glucose (Misc Panel) > 600*H 02/24/20 03:04: Bedside Glucose (Misc Panel) 576*H 02/24/20 04:07: Immature Granulocyte % (Auto) 2.4, Neutrophils (%) (Auto) 85.0H, Lymphocytes (%) (Auto) 4.5L, Monocytes (%) (Auto) 7.7H, Eosinophils (%) (Auto) 0.3, Basophils (%) (Auto) 0.1, Neutrophils # (Auto) 12.5H, Lymphocytes # (Auto) 0.7L, Monocytes # (Auto) 1.1H, Eosinophils # (Auto) 0.0, Basophils # (Auto) 0.0, Nucleated Red Blood Cells % (auto) 0.0, Anion Gap 9, Glomerular Filtration Rate 11.9L, Calcium Level 8.7L, Phosphorus Level 4.2, Magnesium Level 1.7L, Triglycerides Level 311H, Total Cholesterol 113, LDL Cholesterol 3, Non-HDL Cholesterol (LDL + VLDL) 65, Total HDL Cholesterol 48, Cholesterol/HDL Ratio 2.354 02/24/20 05:04: Bedside Glucose (Misc Panel) 463H 02/24/20 07:20: Bedside Glucose (Misc Panel) 338H 02/24/20 07:46: Blood Gas Bicarbonate Standard 22.8, Arterial Blood pH 7.338L, Arterial Blood Partial Pressure CO2 45.7H, Arterial Blood Partial Pressure O2 88.0, Arterial Blood Total CO2 25.4, Arterial Blood HCO3 24.0, Arterial Blood Base Excess -1.9, Arterial Blood Oxygen Saturation 95.8 02/24/20 07:47: Anion Gap 11, Glomerular Filtration Rate 11.7L, Osmolality 318H, Calcium Level 9.0 02/24/20 08:29: Bedside Glucose (Misc Panel) 231H 02/24/20 09:35: Bedside Glucose (Misc Panel) 200H 02/24/20 10:45: Bedside Glucose (Misc Panel) 211H CBC/BMP Laboratory Tests 02/23/20 23:21 02/24/20 04:07 02/24/20 07:47 Microbiology Microbiology 02/21/20 Blood Culture - Preliminary, Resulted No Growth after 48 hours. All Specime... 02/21/20 Blood Culture - Preliminary, Resulted No Growth after 48 hours. All Specime... 02/21/20 Respiratory Virus Panel (PCR) (DANITA) - Final, Complete GME ATTESTATION GME ATTESTATION My faculty preceptor for this patient encounter was physically present during the encounter and was fully available. All aspects of the patient interview, examination, medical decision making process, and medical care plan development were reviewed and approved by the faculty preceptor. The faculty preceptor is aware and concurs with the plan as stated in the body of this note and will attest to such by his/her cosignature. ATTENDING NOTE Patient was seen and examined by me and agree with the above assessment and plan HALEY SALAZAR MD February 24, 2020 11:38 JORGE AVELAR MD February 25, 2020 17:41
[2020-02-24] MEDS ORDERED: MAGNESIUM OXIDE 400 MG TAB (MAG-OX) PO ONE (11:45)
[2020-02-24] MEDS: IPRATROPIUM 0.5MG/ALBUTEROL 2.5MG INH SOL UD 3ML (DUONEB)(J7620) NEB SCH ×4 (12:00→23:51)
--- NOTE | 2020-02-24 12:19 | REP ---
RENAL ULTRASOUND: Real-time sonographic evaluation of the kidneys performed. The study is limited due to patient body habitus and in ability to suspend respirations. The kidneys appear normal in size, right kidney measuring 10.3 x 5.3 x 5.3 cm and left kidney 11.6 x 5.3 x 5.4 cm. There is no hydronephrosis bilaterally. Hypoechoic nodules bilaterally most consistent with cysts as seen on prior study of 07/13/2018. Cystic structure in the upper pole of the right kidney measures 1.7 cm maximally, in the mid aspect 1.4 cm and in the lower pole 1.9 cm. Cystic structure in the mid left kidney measures 1.7 cm maximally and in the lower pole 1.6 cm. Urinary bladder is not well distended. IMPRESSION: No hydronephrosis. Bilateral renal cysts. Electronically Signed by Hossein Larson MD 02/24/2020 02:56 P
[2020-02-24] MEDS: LEVEMIR (INSULIN DETEMIR) 1 UNITS/0.01ML SC SCH ×2 (12:34→20:30)
[2020-02-24] MEDS: HumaLOG INSULIN (NovoLOG) PER UNIT SC SCH ×3 (12:34→20:31)
[2020-02-24] MEDS: ROSUVASTATIN 10 MG TAB (CRESTOR) PO SCH (20:32)
[2020-02-24] MEDS ORDERED: LEVEMIR (INSULIN DETEMIR) 1 UNITS/0.01ML SC SCH (21:00)
[2020-02-25] VITALS (11 sets, daily range): BP systolic 96–152; BP diastolic 48–76
[2020-02-25] MEDS: IPRATROPIUM 0.5MG/ALBUTEROL 2.5MG INH SOL UD 3ML (DUONEB)(J7620) NEB SCH ×5 (03:10→20:00)
[2020-02-25 05:08] LABS: BASO % 0.3 % (0.0-1.0); EOS % 0.1 % (0.0-3.0); HEMATOCRIT 31.6 % (36.0-47.0); HEMOGLOBIN 9.9 g/dl (12.0-15.5); LYMPH # 1.6 10^3/uL (1.5-5.0); LYMPH % 10.6 % (24.0-44.0); MEAN CORPUSCULAR HGB CONC 31.3 g/dl (32.0-36.5); MEAN CORPUSCULAR VOLUME 89.5 fl (80.0-96.0); MONO # 2.7 10^3/uL (0.0-0.8); MONO % 17.5 % (0.0-5.0); NEUTROPHILS # 10.5 10^3/uL (1.5-8.5); NEUTROPHILS % 67.9 % (36.0-66.0); PLATELET COUNT, AUTOMATED 193 10^3/uL (150-450); RED BLOOD COUNT 3.53 10^6/uL (4.00-5.40); WHITE BLOOD COUNT 15.4 10^3/uL (4.0-10.0)
[2020-02-25 05:27] LABS: CALCIUM LEVEL 8.6 MG/DL (8.8-10.2); CREATININE FOR GFR 3.91 MG/DL (0.55-1.30); GLOMERULAR FILTRATION RATE 11.8 (>39); POTASSIUM SERUM 4.8 MEQ/L (3.5-5.1)
[2020-02-25] MEDS: **hydrALAZINE HCL** 25 MG TAB PO SCH ×4 (05:59→17:04)
[2020-02-25] MEDS: traMADol 50 MG TAB PO PRN ×2 (06:34→15:48)
[2020-02-25] MEDS ORDERED: SLF 3 ML SYR IV PRN (06:45)
[2020-02-25] MEDS: ADVAIR HFA 230/21MCG INHALER INH SCH ×2 (07:22→20:41)
[2020-02-25] MEDS: HumaLOG INSULIN (NovoLOG) PER UNIT SC SCH ×4 (08:19→21:00)
[2020-02-25] MEDS: LEVEMIR (INSULIN DETEMIR) 1 UNITS/0.01ML SC SCH ×3 (08:19→21:22)
[2020-02-25] MEDS: LACTOBACILLUS ACIDOPHILUS CAP (BACID) PO SCH ×2 (08:20→20:58)
[2020-02-25] MEDS: ASPIRIN 81 MG ENTERIC TAB PO SCH (08:20)
[2020-02-25] MEDS: ISOSORBIDE MON. (IMDUR) 30 MG XR TAB PO SCH (08:20)
[2020-02-25] MEDS: PREGABALIN 75 MG CAP(LYRICA) PO SCH ×3 (08:21→20:58)
[2020-02-25] MEDS: SUCRALFATE 1 GM TAB PO SCH ×4 (08:21→20:56)
[2020-02-25] MEDS: amLODIPine 5 MG TAB PO SCH ×2 (08:21→20:57)
[2020-02-25] MEDS: PANTOPRAZOLE 40MG TAB (PROTONIX) PO SCH (08:21)
[2020-02-25] MEDS: CALCITRIOL 0.25 MCG CAP (S0169) PO SCH (08:22)
[2020-02-25] MEDS: HEPARIN SOD (PORCINE) 5000UNITS/ML VIAL (J1644 PER 1000UNITS) SQ SCH ×2 (08:22→20:58)
--- NOTE | 2020-02-25 12:25 | IPNPDOC ---
Text Note Date of Service The patient was seen on 02/25/20. NOTE Patient was seen and examined by me this morning with the residents. She is at baseline 3 L of oxygen. States that she did okay overnight. Denies any complaints. PHYSICAL EXAMINATION: GENERAL APPEARANCE: Laying in bed, appears stated age, no acute distress, calm, cooperative HEENT: EOMI, PERRLA RESPIRATORY: Diminished breath sounds bilaterally with fine bibasilar crackles. No wheezing, no rhonchi CARDIOVASCULAR: unable to determine JVD due to large neck, RRR, no murmurs/r ubs/gallops, normal S1 and S2 ABDOMEN: +BS, soft, nontender to palpation in all four quadrants, no m asses/organomegaly EXTREMITIES: Chronic venous stasis changes, 2+ pitting edema NEUROLOGICAL: CN 2-12 intact, No obvious focal deficits PSYCHIATRIC: normal mood/affect Skin: No rashes or ulcers appreciated, warm and well-perfused LN: No significant cervical or inguinal lymphadenopathy Labs reviewed Radiology reviewed Assessment and plan This is a 80-year-old female with history of COPD on 3 L oxygen at home who presented with shortness of breath, found to have COPD exacerbation and was ini tially started on IV steroids which have been D escalated. The patient also has a history of diastolic heart failure and at the time of presentation was given 40 of torsemide BID, and currently the patient is an AK I but the creatinine is leveling off now. PROBLEMS: 1. Acute kidney injury. The patient has a baseline creatinine of around 1.2-1.5. Currently, the patient's creatinine is 3.9. The patient got torsemide in total of 80 mg when she was admitted as she has a history of diastolic heart failure and there were some concerns of acute failure. The patient became oliguric, but after holding her diuretics and giving her 500 mL of bolus. The patient's renal function improved to 800 mL in 24 hours. No episodes of hypotension. No additional nephrotoxic drug was given. We are monitoring input output, and currently the patient is nonoliguric. The patient probably can have ATN likely secondary to prerenal and now is leveling off at 3.8. We will continue to monitor. Very judicial fluid, use as the patient already has bibasilar crackles today. Renal sonogram was done which came out to be negative. Posterior renal AK I was rule out 2. Acute hypoxic respiratory failure 2/2 COPD exacerbation: Currently at baseline. Steroids have been D escalated and we are supplementing oxygen to maintain the saturation about 92. As needed Dual nebs. She'll be discharged on long-acting beta agonist and rescue inhaler once she is optimized. Her upper respiratory PCR has been negative. 3. Hyperglycemia. Continue her long-acting and short-acting insulin. We will calibrated 24-hour requirement and adjust insulin accordingly. ADA diet. DVT and GI prophylaxis PT, OT on board. Likely discharge within the next 24-48 hours VS,Fishbone, I+O VS, Fishbone, I+O Laboratory Tests 02/25/20 04:34 Vital Signs Date Time Temp Pulse Resp B/P (MAP) Pulse Ox O2 Delivery O2 Flow Rate FiO2 02/25/20 12:00 97.0 79 20 150/64 (92) 93 Nasal Cannula 3.0 I&O- Last 24 Hours up to 6 AM 02/25/20 06:00 Intake Total 2105 ml Output Total 550 ml Balance 1555 ml JORGE AVELAR MD February 25, 2020 12:25
[2020-02-25] MEDS: ACETAMINOPHEN TAB 650MG DOSE (2X325MG) PO PRN (12:30)
[2020-02-25] MEDS: SLF 3 ML SYR IV SCH ×2 (14:11→22:54)
[2020-02-25] MEDS ORDERED: FUROSEMIDE 40MG/4ML VIAL (J1940) As Ordered ONE (17:02)
[2020-02-25 17:03] LABS: ABG HCO3 20.2 MEQ/L (22.0-26.0); ABG PARTIAL PRESSURE CO2 42.6 mmHg (35.0-45.0); ABG PARTIAL PRESSURE O2 57.1 mmHg (75.0-100.0); ABG STANDARD HCO3 19.3 MEQ/L (22.0-26.0); ABG TOTAL CO2 21.5 MEQ/L (23.0-31.0); ABG pH (ARTERIAL) 7.293 UNITS (7.350-7.450)
[2020-02-25] MEDS ORDERED: FUROSEMIDE 40MG/4ML VIAL (J1940) IV ONE (18:00)
[2020-02-25] MEDS ORDERED: FUROSEMIDE 100MG/10ML VIAL (J1940) IV ONE (20:30)
[2020-02-25] MEDS: ROSUVASTATIN 10 MG TAB (CRESTOR) PO SCH (20:56)
[2020-02-26] VITALS (25 sets, daily range): BP systolic 115–157; BP diastolic 58–92; O2SAT 80–92
[2020-02-26] MEDS: IPRATROPIUM 0.5MG/ALBUTEROL 2.5MG INH SOL UD 3ML (DUONEB)(J7620) NEB SCH ×7 (00:40→23:25)
[2020-02-26 01:56] LABS: AMORPHOUS SEDIMENT SMALL (NEGATIVE); APPEARANCE, URINE HAZY (CLEAR); BACTERIA, URINE AUTO NEGATIVE (NEGATIVE); BILIRUBIN, URINE AUTO NEGATIVE (NEGATIVE); BLOOD, URINE BLOOD NEGATIVE (NEGATIVE); COLOR, URINE YELLOW (YELLOW); GLUCOSE, URINE (UA) AUTO NEGATIVE (NEGATIVE); KETONE, URINE AUTO NEGATIVE (NEGATIVE); LEUKOCYTE ESTERASE, URINE AUTO NEGATIVE (NEGATIVE); NITRITE, URINE AUTO NEGATIVE (NEGATIVE); PROTEIN, URINE AUTO NEGATIVE (NEGATIVE); RBC, URINE AUTO 2 /HPF (0-3); SPECIFIC GRAVITY URINE AUTO 1.013 (1.002-1.035); SQUAMOUS EPITHELIAL CELL UR AU 1 /HPF (0-6); TRANSITIONAL EPITHELIAL AUTO <1 /HPF; UROBILINOGEN, URINE AUTO 0.2 mg/dL (0.0-2.0); WBC, URINE AUTO 1 /HPF (0-3)
[2020-02-26 04:52] LABS: HEMATOCRIT 30.7 % (36.0-47.0); HEMOGLOBIN 9.5 g/dl (12.0-15.5); MEAN CORPUSCULAR HEMOGLOBIN 27.3 pg (27.0-33.0); MEAN CORPUSCULAR HGB CONC 30.9 g/dl (32.0-36.5); MEAN CORPUSCULAR VOLUME 88.2 fl (80.0-96.0); PLATELET COUNT, AUTOMATED 178 10^3/uL (150-450); RED BLOOD COUNT 3.48 10^6/uL (4.00-5.40); WHITE BLOOD COUNT 14.2 10^3/uL (4.0-10.0)
[2020-02-26 05:12] LABS: ANISOCYTOSIS 2+; LYMPHOCYTES 11 % (16-44); MONOCYTES 16 % (0-5); NEUTROPHILS 73 % (28-66); PLATELET ESTIMATE NORMAL (NORMAL)
[2020-02-26 05:13] LABS: HYPOCHROMASIA 1+
[2020-02-26 05:14] LABS: BLOOD UREA NITROGEN 107 MG/DL (7-18); CALCIUM LEVEL 8.8 MG/DL (8.8-10.2); CARBON DIOXIDE LEVEL 24 MEQ/L (21-32); CHLORIDE LEVEL 90 MEQ/L (98-107); CREATININE FOR GFR 4.43 MG/DL (0.55-1.30); GLOMERULAR FILTRATION RATE 10.2 (>39); GLUCOSE, FASTING 224 MG/DL (70-100); NT-PRO BNP 3866 PG/ML (<450); POTASSIUM SERUM 5.2 MEQ/L (3.5-5.1); SODIUM LEVEL 126 MEQ/L (136-145)
[2020-02-26 05:16] LABS: PLATELET CLUMPS SMALL AMT
[2020-02-26] MEDS: **hydrALAZINE HCL** 25 MG TAB PO SCH ×4 (06:46→18:00)
[2020-02-26] MEDS: SLF 3 ML SYR IV SCH ×3 (06:46→22:59)
[2020-02-26] MEDS: ADVAIR HFA 230/21MCG INHALER INH SCH ×2 (07:09→20:00)
[2020-02-26] MEDS: ACETAMINOPHEN TAB 650MG DOSE (2X325MG) PO PRN (07:33)
[2020-02-26] MEDS: HEPARIN SOD (PORCINE) 5000UNITS/ML VIAL (J1644 PER 1000UNITS) SQ SCH ×2 (09:00→20:54)
[2020-02-26] MEDS: LEVEMIR (INSULIN DETEMIR) 1 UNITS/0.01ML SC SCH ×2 (10:14→20:56)
[2020-02-26] MEDS: ISOSORBIDE MON. (IMDUR) 30 MG XR TAB PO SCH (10:15)
[2020-02-26] MEDS: HumaLOG INSULIN (NovoLOG) PER UNIT SC SCH ×4 (10:15→20:55)
[2020-02-26] MEDS: PREGABALIN 75 MG CAP(LYRICA) PO SCH ×3 (10:15→20:54)
[2020-02-26] MEDS: SUCRALFATE 1 GM TAB PO SCH ×4 (10:15→20:55)
[2020-02-26] MEDS: CALCITRIOL 0.25 MCG CAP (S0169) PO SCH (10:15)
[2020-02-26] MEDS: ASPIRIN 81 MG ENTERIC TAB PO SCH (10:15)
[2020-02-26] MEDS: PANTOPRAZOLE 40MG TAB (PROTONIX) PO SCH (10:16)
[2020-02-26] MEDS: LACTOBACILLUS ACIDOPHILUS CAP (BACID) PO SCH ×2 (10:16→20:55)
[2020-02-26] MEDS: amLODIPine 5 MG TAB PO SCH ×2 (10:16→20:55)
[2020-02-26] MEDS: PATIROMER SORBITEX CALCIUM 8.4 GM POWDER PACKET (VELTASSA) PO ONE ×2 (10:17→10:31)
[2020-02-26] MEDS: traMADol 50 MG TAB PO PRN (10:19)
[2020-02-26] MEDS ORDERED: LIDOCAINE 1% MDV 20ML VIAL As Ordered ONE (13:59)
[2020-02-26] MEDS ORDERED: LIDOCAINE 1% MDV 20ML VIAL SC ONE (14:15)
[2020-02-26] MEDS: MEROPENEM INJ 500 MG in IV 1 EA IV SCH (14:35)
--- NOTE | 2020-02-26 15:59 | IPNPDOC ---
Date Seen The patient was seen on 02/26/20. Progress Note SUBJECTIVE: Yesterday afternoon, I was called to the bedside to evaluate Mrs. Falcon, as she was quite tachypneic and oxygen requirement had increased. She was found have inspiratory crackles up to the middle lobes and was complaining of lower extremity pain with edema. She was given a one-time dose of Lasix and urinary catheter inserted. Overnight, she remained on venturimask and was saturating between 83-89% on 15L of 40%FiO2. Nephrology was called as patient had worsening shortness of breath 2/2 fluid overload and decreased urinary output concerning for urgent need for dialysis. This morning, the patient was transferred to the ICU and placed on BiPAP. She will be getting temporary dialysis catheter and will be dialyzed today. She reports that her breathing is worse this morning and she is unable to lay flat. She is willing to undergo dialysis but she continues to maintain her DNR/DNI status. PHYSICAL EXAMINATION: GENERAL APPEARANCE: Laying in bed, appears stated age, no acute distress, calm, cooperative HEENT: EOMI, PERRLA RESPIRATORY: Crackles are appreciated from the bases up to the middle lobes bilaterally CARDIOVASCULAR: unable to determine JVD due to large neck, RRR, no murmurs/rubs/gallops, normal S1 and S2 ABDOMEN: +BS, soft, nontender to palpation in all four quadrants, no masses/organomegaly EXTREMITIES: Chronic venous stasis changes, 2+ pitting edema NEUROLOGICAL: CN 2-12 intact, No obvious focal deficits PSYCHIATRIC: normal mood/affect Skin: No rashes or ulcers appreciated, warm and well-perfused LN: No significant cervical or inguinal lymphadenopathy IMAGING: CXR: Clinical: Possible fluid overload. Comparison: 02/21/2020. Findings: Examination is limited by portable technique, positioning and underpenetration. Perihilar and lower lobe infiltrates along with suspected layering effusions (right greater than left) and elements of cephalization are suggested. No pneumothorax. Stable cardiomegaly. Skeletal structures intact. Impression: Findings suggest pulmonary vascular congestion with bibasilar infiltrate/atelectasis and pleural effusions. Differential diagnosis includes multifocal pneumonia. ASSESSMENT AND PLAN: This is a 80-year-old female with history of COPD on 3 L oxygen at home who presented with shortness of breath, found to have COPD exacerbation and was initially started on IV steroids which had been de-escalated. The patient also has a history of diastolic heart failure and at the time of presentation was given 40 of torsemide BID, but now is having decreased urinary output. She has been transferred to the ICU for BiPaP and for dialysis line placement, and dialysis later today. PROBLEMS: 1. Acute renal failure on CKD III: -BUN/Cr today 107/4.43. -Nephrology consulted. Ordered 80mg IV lasix with only 300cc urine output overnight. Will start dialysis for fluid removal this afternoon -Continue tabares catheter -Renal US negative for any abnormality -Potassium today found to be 5.2. Given Veltassa -Continue Calcitriol -Proposal Lead Writer consult for line placement. 2. Acute hypoxic respiratory failure 2/2 COPD exacerbation vs fluid overload: -Steroids d/c'd 2/2 hyperglycemia -s/p moxifloxacin x 3 days -Starting Meropenem at this time -Continue inhalers/neb treatments -BNP found to be 3866 -CXR suggests pulmonary vascular congestion vs PNA 3. Hyperglycemia. -Continue Levemir 40U BID -SSI with hypoglycemic protocol 4. HTN: BP within normal limits -Continue Amlodipine, Imdur 5. HLD: -Continue Crestor DVT ppx: SQH GI ppx: Protonix PT, OT on board. VS, I&O, 24H, Fishbone Vital Signs/I&O Vital Signs Date Time Temp Pulse Resp B/P (MAP) Pulse Ox O2 Delivery O2 Flow Rate FiO2 02/26/20 15:01 50 02/26/20 13:00 90 BIPAP/CPAP 02/26/20 13:00 79 19 130/60 (83) 02/26/20 12:17 15.0 02/26/20 12:10 97.8 l I&O- Last 24 Hours up to 6 AM 02/26/20 06:00 Intake Total 1080 ml Output Total 395 ml Balance 685 ml Laboratory Data 24H LABS Laboratory Tests 2 02/25/20 16:57: Blood Gas Bicarbonate Standard 19.3L, Arterial Blood pH 7.293L, Arterial Blood Partial Pressure CO2 42.6, Arterial Blood Partial Pressure O2 57.1L, Arterial Blood Total CO2 21.5L, Arterial Blood HCO3 20.2L, Arterial Blood Base Excess - 6.0L, Arterial Blood Oxygen Saturation 88.0L 02/25/20 17:14: Bedside Glucose (Misc Panel) 268H 02/25/20 20:28: Bedside Glucose (Misc Panel) 220H 02/26/20 01:30: Urine Color YELLOW, Urine Appearance HAZY, Urine pH 5.0, Urine Specific [place] 1.013, Urine Protein NEGATIVE, Urine Glucose (Auto)(UA) NEGATIVE, Urine Ketones (Auto) NEGATIVE, Urine Blood NEGATIVE, Urine Nitrite NEGATIVE, Urine Bilirubin NEGATIVE, Urine Urobilinogen 0.2, Urine Leukocyte Esterase (Auto) NEGATIVE, Urine WBC (Auto) 1, Urine RBC (Auto) 2, Urine Hyaline Casts (Auto) 4, Urine Bacteria (Auto) NEGATIVE, Urine Squamous Epithelial Cells 1, Urine Transitional Epithelial Cells <1, Urine Amorphous Sediment (Auto) SMALLH, Urine Sperm (Auto) 02/26/20 04:32: Immature Granulocyte % (Auto) , Neutrophils (%) (Auto) , Nucleated Red Blood Cells % (auto) 0.0, Neutrophils 73H, Lymphocytes (Manual) 11L, Monocytes (Manual) 16H, Hypochromasia 1+, Anisocytosis 2+, Platelet Estimate NORMAL, Clumped Platelets SMALL AMT, Anion Gap 12, Glomerular Filtration Rate 10.2L, Calcium Level 8.8, EF-Wjs-[id number]-Type Natriuretic Peptide 3866H 02/26/20 12:05: Bedside Glucose (Misc Panel) 212H CBC/BMP Laboratory Tests 02/26/20 04:32 Microbiology Microbiology 02/21/20 Blood Culture - Preliminary, Resulted No Growth after 72 hours. All specime... 02/21/20 Blood Culture - Preliminary, Resulted No Growth after 72 hours. All specime... 02/21/20 Respiratory Virus Panel (PCR) (DANITA) - Final, Complete GME ATTESTATION GME ATTESTATION My faculty preceptor for this patient encounter was physically present during the encounter and was fully available. All aspects of the patient interview, examination, medical decision making process, and medical care plan development were reviewed and approved by the faculty preceptor. The faculty preceptor is aware and concurs with the plan as stated in the body of this note and will attest to such by his/her cosignature. ATTENDING NOTE Patient was seen and examined by me with the residents. agree with the above assessment and plan . HALEY SALAZAR MD February 26, 2020 15:59 JORGE AVELAR MD February 26, 2020 16:26
--- NOTE | 2020-02-26 17:32 | CR ---
DATE OF CONSULTATION: 02/26/2020 CHIEF COMPLAINT: Shortness of breath. HISTORY OF PRESENT ILLNESS: Ms. Falcon is a 80-year-old female with a past medical history of chronic obstructive pulmonary disease (COPD) with chronic hypoxemic respiratory failure on 2-3 liters nasal cannula oxygen at home, diabetes, hypertension, chronic kidney disease (CKD), obstructive sleep apnea (HOWARD), noncompliant with continuous positive airway pressure (CPAP), morbid obesity, and hyperlipidemia who presented initially with complaints of shortness of breath thought to be secondary to a possible COPD exacerbation. The patient was initially started on Solu-Medrol as well as Avelox for her acute COPD exacerbation. The patient was initially started on her home dose of torsemide. However, that was discontinued as she was noted to have worsening renal function. The patient was also noted to be hyperglycemic with fingerstick glucoses in the 500s to 600s. She was started on an insulin drip and given more IV fluids. Overnight, the patient was noted to have increasing shortness of breath and orthopnea. She was also desaturating overnight and required increasing oxygen supplementation with placement of a venturi mask with oxygen saturations still in the 80s. The patient was also found to have increased lower extremity edema and was becoming oliguric with worsening renal function. Nephrology was consulted due to her worsening renal failure and oliguria. The patient was thought to be fluid overloaded with pulmonary edema, and given her worsening hypoxic respiratory failure and the need for dialysis for fluid removal, critical care was consulted. The patient was recommended to be placed on bilevel positive airway pressure (BiPAP) for her pulmonary edema secondary to fluid overload. The patient had previously refused positive pressure therapy as she has a history of sleep apnea with noncompliance to CPAP. She was agreeable, however, for temporary noninvasive positive pressure ventilation to help with her respiratory distress and hypoxia while awaiting placement of a hemodialysis catheter and initiation of hemodialysis. With the BiPAP, the patient was noted to be more comfortable. She previously had to sit up in the bed but with BiPAP was able to be reclined somewhat in the bed. The patient's oxygenation also improved and her tachypnea was also improved with the BiPAP. PAST MEDICAL AND SURGICAL HISTORY: 1. Chronic obstructive pulmonary disease (COPD). 2. Chronic hypoxemic respiratory failure, on nasal cannula oxygen supplementation at 2-3 liters a minute. 3. Diabetes. 4. Hypertension. 5. Chronic kidney disease (CKD). 6. Obstructive sleep apnea (HOWARD), noncompliant with continuous positive airway pressure (CPAP). 7. Morbid obesity. 8. (C) section. 9. Bilateral knee arthroscopy. 10. Bilateral shoulder repair. SOCIAL HISTORY: The patient is a current smoker, smoked a pack a day since the age of 33, and still currently smokes a few cigarettes, about 5-8 daily. Denies any history of alcohol use or other illicit drug use. FAMILY HISTORY: Mother and father with cancer, unknown type. ALLERGIES: No known drug allergies. HOME MEDICATIONS: Albuterol, allopurinol, Norvasc, aspirin, calcitriol, vitamin D, hydralazine, insulin, isosorbide, ketoconazole, Bacid, nitroglycerin, Nystatin, Protonix, Lyrica, Crestor, Carafate and torsemide. PHYSICAL EXAMINATION: VITAL SIGNS: Temperature 97.8, pulse 86, respirations 27, blood pressure 130/92, oxygen saturation 86% on venturi mask at 40% fraction of inspired oxygen (FiO2), later on bilevel positive airway pressure (BiPAP), oxygen saturation 93% on BiPAP at 40% FiO2. INTAKE AND OUTPUT: 1.5 liters in and 350 mL out. GENERAL: The patient is a morbidly obese female, is lying in bed on BiPAP. Appears to be more comfortable and is using less accessory muscles for respiration. She is able to speak in short sentences. The patient is alert and oriented times three. HEENT: Normocephalic, atraumatic. Dry mucous membranes while on BiPAP. Neck is short and thick. Unable to evaluate jugular venous distention (JVD) due to neck habitus. Trachea is midline. Unable to palpate any cervical adenopathy. CARDIAC: Regular rate and rhythm, distant heart sounds, normal S1, S2. Unable to appreciate any murmurs. PULMONARY: There are bilateral crackles up to the mid lung field with no significant wheezing or rhonchi. ABDOMEN: Morbidly obese, nontender to palpation. There are areas of skin tags and moles on her abdomen and the rest of her skin. LOWER EXTREMITIES: There is bilateral tense pitting edema in the lower extremities with tenderness and some mild erythema and chronic venous stasis changes. LABORATORY DATA: WBCs 14.0, hemoglobin 9.5, platelets are 173. Chemistry: Sodium is 126, potassium 5.2, chloride is 90, bicarbonate is 24, BUN 107, creatinine 4.43, glucose is 224, calcium is 8.8, BNP increasing to 3866, was 460 on admission. ABG: Yesterday pH 7.293, pCO2 of 42.6, pO2 of 57.1. MICROBIOLOGY: COVID-19 PCR negative. Blood cultures and respiratory panel negative. IMAGING STUDIES: Chest CT 02/21/2020 showed an approximately 1 cm solid pulmonary nodule in the left apex which was not seen on the previous CT. There are few scattered subcentimeter pulmonary nodules noted bilaterally. There is fibro-atelectatic change in the anterior segment of the right upper lobe and some atelectasis and scarring in the right middle lobe and lingula. The lower lobes are somewhat obscured from respiratory motion artifact and there is some atelectasis noted. There is no pleural effusion. Status post cholecystectomy. Vascular ultrasound 02/22/2020: No evidence of DVT in the right lower extremity. Chest x-ray 02/25/2020 showed new bilateral pleural effusions with associated atelectasis and increased pulmonary avascular congestion. ASSESSMENT AND PLAN: Ms. Falcon is a 80-year-old female with a past medical history of diabetes, chronic obstructive pulmonary disease (COPD), chronic hypoxemic respiratory failure, chronic kidney disease (CKD), hypertension, and hyperlipidemia who presented initially with complaints of shortness of breath thought to be secondary to a COPD exacerbation. The patient was treated with IV steroids and Avelox and did have some improvement in her symptoms initially. The patient was also noted to have acute on chronic renal failure and was given IV fluid repletion. She was also found to be hyperglycemic and required an insulin drip and IV fluids for her hyperglycemia. Yesterday, the patient was noted to have worsening respiratory distress and orthopnea as well as acute worsening of her hypoxemic respiratory failure. Her repeat imaging showed evidence now of new bilateral pleural effusions with some associated atelectasis and increased pulmonary vascular congestion. On examination, she was also to have increased crackles and lower extremity edema. The patient also had worsening oliguric renal failure and nephrology was consulted. Critical care was consulted for her worsening hypoxic respiratory failure and for her renal failure requiring emergent dialysis. Acute on chronic hypoxemic respiratory failure in the setting of pulmonary edema and bilateral pleural effusions from fluid overload and also complicated from worsening renal failure. The patient initially had refused continuous positive airway pressure (CPAP). However, after discussion, she was amendable to noninvasive positive pressure ventilation to help with her respiratory distress and hypoxic respiratory failure as well as to seismograph helper in her pulmonary edema and the ability to tolerate laying in bed, with her head of the bead semi-elevated for a hemodialysis catheter procedure. With bilevel positive airway pressure (BiPAP), the patient did report improvement in her shortness of breath and her tachypnea and oxygenation also improved. We will continue her with bilevel settings of 14/6, respiratory rate of 8, and fraction of inspired oxygen (FiO2) of 40%. I will continue her with BiPAP with short breaks if needed. Suspect once the patient is able to have fluid removal with dialysis that she will be able to be weaned off of BiPAP. Given her history of sleep apnea, she would benefit from continued positive pressure therapy if she tolerates. History of COPD. She was on IV steroids for acute COPD exacerbation which was discontinued due to her hyperglycemia. We will continue her with maintenance inhaler of Advair and with DuoNebs. The patient was started on meropenem given concern for possible pneumonia. The patient's chest x-ray is more consistent with fluid overload, however, and the opacities in the lower lobes are likely atelectasis secondary to pleural effusion. She does have leukocytosis. However, it may be in the setting of her recent steroid use. Would check the procalcitonin to seismograph helper in de-escalation of antibiotics. She has also been afebrile. Acute on chronic renal failure. Appreciate renal consult recommendations. The patient was found to have worsening renal failure and oliguria as well as pulmonary edema and bilateral effusions. She was agreeable for initiation of hemodialysis for fluid removal. As the patient is unable to lie flat in Trendelenburg, an internal jugular (IJ) hemodialysis catheter was not able to be placed. She was able to have a femoral hemodialysis catheter placed in the left groin. Would start dialysis and manage diuretics as per renal. Deep vein thrombosis (DVT) prophylaxis with heparin. CODE STATUS: DO NOT RESUSCITATE (DNR)/DO NOT INTUBATE (DNI), trial of noninvasive positive pressure ventilation. Total critical care time spent none including procedures is approximately one hour and 45 minutes.
[2020-02-26] MEDS ORDERED: ALPRAZolam 0.25 MG TAB PO ONE (19:30)
[2020-02-26] MEDS: ROSUVASTATIN 10 MG TAB (CRESTOR) PO SCH (20:54)
[2020-02-26] MEDS ORDERED: DARBEPOETIN 200MCG/0.4ML *DIALYSIS* SYRINGE (J0882 PER 1MCG) IV SCH (23:45)
[2020-02-27] VITALS (17 sets, daily range): BP systolic 106–156; BP diastolic 47–74; O2SAT 85–94
[2020-02-27] MEDS: **hydrALAZINE HCL** 25 MG TAB PO SCH ×4 (00:08→18:00)
[2020-02-27] MEDS ORDERED: CHLOROTHIAZIDE 500 MG VIAL (J1205 PER 1) IV ONE (00:15)
[2020-02-27] MEDS: FUROSEMIDE 100MG/10ML VIAL (J1940) IV SCH ×2 (00:58→06:06)
[2020-02-27] MEDS: IPRATROPIUM 0.5MG/ALBUTEROL 2.5MG INH SOL UD 3ML (DUONEB)(J7620) NEB SCH ×6 (04:00→23:29)
[2020-02-27 04:56] LABS: HEMATOCRIT 26.3 % (36.0-47.0); HEMOGLOBIN 8.5 g/dl (12.0-15.5); MEAN CORPUSCULAR HGB CONC 32.3 g/dl (32.0-36.5); MEAN CORPUSCULAR VOLUME 86.5 fl (80.0-96.0); PLATELET COUNT, AUTOMATED 158 10^3/uL (150-450); RED BLOOD COUNT 3.04 10^6/uL (4.00-5.40); WHITE BLOOD COUNT 13.3 10^3/uL (4.0-10.0)
[2020-02-27 05:18] LABS: CALCIUM LEVEL 8.3 MG/DL (8.8-10.2); CREATININE FOR GFR 2.95 MG/DL (0.55-1.30); GLOMERULAR FILTRATION RATE 16.3 (>39); POTASSIUM SERUM 4.4 MEQ/L (3.5-5.1)
[2020-02-27 05:39] LABS: LYMPHOCYTES 13 % (16-44); METAMYELOCYTES 1 % (0-0); MONOCYTES 8 % (0-5); NEUTROPHILS 75 % (28-66)
[2020-02-27 05:40] LABS: ANISOCYTOSIS 2+; PLATELET ESTIMATE NORMAL (NORMAL)
[2020-02-27] MEDS: SLF 3 ML SYR IV SCH ×3 (06:07→20:24)
[2020-02-27] MEDS: ADVAIR HFA 230/21MCG INHALER INH SCH ×2 (07:06→19:31)
[2020-02-27] MEDS: HumaLOG INSULIN (NovoLOG) PER UNIT SC SCH ×4 (07:30→20:23)
[2020-02-27] MEDS ORDERED: IRON SUCROSE 100MG 5ML VIAL (J1756 PER 1MG) IV SCH (08:00)
--- NOTE | 2020-02-27 09:13 | RO ---
DATE OF PROCEDURE: 02/26/2020 INDICATION: Hemodialysis access. PREPROCEDURE DIAGNOSIS: Renal failure. POSTPROCEDURE DIAGNOSIS: Renal failure. ATTENDING PHYSICIAN: Dr. Danielle Hargrove PROCEDURE: Hemodialysis catheter insertion. CONSENT: Consent was obtained from the patient prior to the procedure. Indications, risks and benefits were explained at length. PROCEDURE SUMMARY: A central line insertion practice form was completed by independent observer. A time out was performed. Full sterile technique was maintained throughout the procedure including surgical cap, mask, protective eye wear, sterile gown and sterile gloves. My hands were washed immediately prior to the procedure. The left inguinal region was prepped using chlorhexidine swab and draped in a sterile fashion using a fenestrated drape and a sterile probe cover was employed. The left femoral vein was identified using ultrasound. Anesthesia was achieved over the vein using 1% lidocaine. Using real time out of plane guidance, the introducer needle was inserted into the femoral vein. Venous blood was withdrawn. The syringe was removed and a guidewire was advanced into the introducer needle. The guidewire was removed over the introducer needle. A small incision was made at the skin surface with a scalpel and double dilation was achieved over the guidewire. After appropriate dilation was obtained, the dilator was exchanged over the wire for a dual lumen hemodialysis catheter. The wire was removed and the catheter was sutured in place. A sterile chlorhexidine impregnated dressing was placed over the catheter at the insertion site. The patient tolerated the procedure without any hemodynamic compresomise. At the time of procedure completion, all ports were aspirated and flushed properly. Heparin was distilled into the hemodialysis ports. Estimated blood loss was 5 mL. [facility]
--- NOTE | 2020-02-27 10:18 | CR ---
DATE OF CONSULTATION: 02/26/2020 REQUESTING PHYSICIAN: Dr. Rich Guillermo CONSULTING PHYSICIAN: Dr. Lee REASON FOR CONSULTATION: Management of acute renal failure. CHIEF COMPLAINT: The patient presented to the hospital on 02/21/2020 because of progressive shortness of breath. HISTORY OF PRESENT ILLNESS: Cata Falcon is a 80-year-old female with history of chronic kidney disease stage IV, past baseline creatinine of around 4 as of December 2019, morbid obesity, history of chronic obstructive pulmonary disease (COPD), chronic O2 dependence, and multiple other comorbidities as mentioned below. She presented to the hospital on 02/21/2020 because of progressive shortness of breath despite using her nebulizers at home. She was admitted under the hospitalist service with acute COPD exacerbation. She was also continued on the oral torsemide. Her creatinine on admission was 1.9. With the use of diuretics her renal function kept on getting worse. She became oliguric. Her creatinine climbed up to 3.9 yesterday. Because of her progressive shortness of breath and oliguria, nephrology service was called on board yesterday. The patient got a Reid catheter placed. She was given initially a dose of Lasix 40 mg IV followed by 80 mg IV. The patient did not make much urine. Her shortness of breath kept on getting worse. I saw and evaluated the patient today morning at the bedside. She was wearing a Ventimask. She was in moderate to severe respiratory distress. She was hypoxemic. Most of the history was obtained from the medical team and from the patient's chart. She was unable to provide much of the history because of shortness of breath. PAST MEDICAL HISTORY: Past medical history of chronic kidney disease stage IV, history of COPD, chronic oxygen dependence, diabetes mellitus type 2, hypertension, obstructive sleep apnea, morbid obesity, hyperlipidemia. PAST SURGICAL HISTORY: History of times four, bilateral knee arthroscopy, bilateral shoulder repair. ALLERGIES: - CODEINE - LATEX - LISINOPRIL - OXYCODONE FAMILY HISTORY: No significant family history of end stage renal disease. SOCIAL HISTORY: The patient lives alone. She is still an active smoker. She denies any illicit drug abuse or alcohol abuse. REVIEW OF SYSTEMS: Constitutional. She denies any fevers or chills. Eyes: She denies any blurry vision or double vision. ENT: She denies any dysphagia or odynophagia. Cardiovascular: She denies any palpitations. She does report progressive shortness of breath and lower extremity edema. Respiratory: She reports progressive shortness of breath. She does report cough with some phlegm. GI: She denies any nausea or vomiting. Genitourinary: She reports decreased urine output. Musculoskeletal: She denies any muscle aches and pains. Skin: She denies any rashes r ulcers. Hematology/Oncology: She denies any bleeding or bruising. Endocrine: She reports diabetes mellitus type 2 and secondary hyperparathyroidism. All other review of systems is negative. PHYSICAL EXAMINATION: General: The patient is awake, alert and oriented times three, in moderate respiratory distress. Vital Signs: Temperature is 97.8 degrees Fahrenheit, blood pressure 157/70, pulse is 81, respiratory rate of 24, saturating 87% on the Ventimask with 15 liters of oxygen. Head and Neck Exam: Extraocular muscles intact. Pupils equally round and reactive to light. The patient has a short neck and obesity. I was unable to appreciate any jugular venous distention (JVD). Cardiovascular: S1, S2. 2+ edema of the bilateral lower extremities. Respiratory: Decreased breath sounds at the bases with inspiratory crackles at the bases, more on the right side as compared with the left side. Expiratory rhonchi. Abdomen is soft, obese. Positive bowel sounds. I could not appreciate any organomegaly. Genitourinary: She has an indwelling Reid catheter. Musculoskeletal: 2+ edema of the bilateral lower extremities. Clubbing of the fingernails was noted. MONONITROTOLUENE OPERATOR: No focal deficit. The patient moves all extremities. The patient is slightly agitated because of shortness of breath. LAB REVIEW: CBC showed WBC of 14.2, hemoglobin 9.5, platelets of 178. Urinalysis done today showed no blood, no leukocyte esterase, no nitrite, no protein. ABG done yesterday showed a pH of 7.29, pCO2 of 42, pO2 of 57, bicarb is 20.2, oxygen saturation 88%. BMP done today showed sodium 126, potassium 5.2, chloride 90, bicarbonate 24, BUN 107, creatinine 4.4, glucose 224, calcium of 8.8. Serology: COVID-19 is negative. Hepatitis B and C serologies pending. Microbiology: Blood cultures are negative so far. Respiratory viral panel on admission was negative. IMAGING STUDIES: Chest x-ray was done yesterday. Official report is pending. It shows pulmonary vascular congestion and atelectasis in the lower lobes. Renal ultrasound done on 02/24/2020 showed no hydronephrosis and bilateral renal cysts. CURRENT INPATIENT MEDICATIONS: - Tylenol as needed - albuterol - started on meropenem 500 mg IV daily today morning - DuoNebs - Xanax as needed - amlodipine 5 mg by mouth twice a day - aspirin 81 mg by mouth daily - calcitriol 0.25 mcg by mouth daily - hydralazine 25 mg by mouth every 6 hours - insulin Levemir 40 units subcutaneous twice a day - isosorbide 30 mg by mouth daily - she was given a dose of VELTASSA 16.8 grams by mouth x1 dose today morning - Lyrica 75 mg by mouth three times a day - rosuvastatin 20 mg at bedtime - Carafate 1 gram by mouth four times a day - tramadol 50 mg every 8 hours as needed ECHOCARDIOGRAM: Done in September 2019 showed left ventricle (LV) ejection fraction of 75%, borderline concentric left ventricular hypertrophy with hyperkinetic wall motion and grade 1 diastolic dysfunction. ASSESSMENT: 80-year-old female with acute oliguric renal failure, acute on chronic hypoxemic respiratory failure, acute chronic obstructive pulmonary disease exacerbation, acute on chronic diastolic congestive heart failure. PLAN: 1. Acute renal failure superimposed on chronic renal disease stage IV. The patient is oliguric at this time. She is not responding to diuretics. She is fluid overloaded in hypoxic respiratory failure. I discussed hemodialysis with the patient. She agreed to be placed on a BiPAP and have a dialysis catheter placed. The patient will be dialyzed in the afternoon at the bedside. At least 2 liters of fluid will be removed as tolerated by her blood pressure. 2. Acute on chronic diastolic congestive heart failure. The patient is significantly fluid overloaded. She has elevated BNP. She has evidence of pulmonary congestion and edema on the chest x-ray. At least 2 liters of fluid will be removed today. If needed, she will get another session of dialysis. The patient did not respond to the IV diuretics. 3. Acute hypoxemic respiratory failure. It is secondary to combination of COPD exacerbation and fluid overload. The patient is being placed on BiPAP. The rest of the management will be done as per pulmonary service and I appreciate their help and recommendations. 4. Hypertension with hypertensive heart disease. Continue current dose of amlodipine, hydralazine and isosorbide. Blood pressure is in the acceptable range. 5. Secondary hyperparathyroidism. Continue current dose of calcitriol 0.25 mcg by mouth daily. PTH level will be checked in the morning. 6. Hyponatremia. The patient has hypervolemic hyponatremia. Sodium is expected to improve after fluid removal with dialysis. 7. Hyperkalemia. It is secondary to renal failure. The patient will be dialyzed with a 2K bath and potassium is expected to improve after that. 8. Anemia in renal failure. Hemoglobin level is slowly trending down. I have started the patient on Aranesp with dialysis. Iron level will also be checked in the morning. 9. Diabetes mellitus type 2. The patient is currently on insulin. Glucose levels are better controlled. Thank you for involving me in the care of this patient. I shall be happy to follow the patient along with you tomorrow morning. Total critical care time spent in the management of this patient today morning was 1 hour and 15 minutes, excluding all the procedures. HELEN
[2020-02-27] MEDS: ACETAMINOPHEN TAB 650MG DOSE (2X325MG) PO PRN (11:14)
--- NOTE | 2020-02-27 12:38 | IPNPDOC ---
Subjective Date Seen The patient was seen on 02/27/20. Subjective Chief Complaint/HPI Pt is a 80 year old female who presented to [facility] ED with shortness of breath and productive cough, with COPD, oxygen dependent, 3L at home. She was initially treated for COPD exacerbation with methylpred. and Moxifloxacin x 3d. Pt was transferred to ICU due to hyperglycemia requiring insulin drip complicating care. She developed worsening renal function, became oliguric and hypoxic; the latter 2/2 to her volume overload unresponsive to IV Lasix. Pt placed on BiPAP, now on HD, managed as per nephrology. Pt seen sitting up in a recliner napping lightly this morning. She has denied any issues overnight and reported she is comfortable. Per nursing, pt has refused to wear her BiPAP and pulm is wallace. She was satting >90% on 8L oxygen, down from 10L. Pt reported some anxiety and received one dose of Ativan 0.125mg which was reportedly unhelpful. General: Denies: Chills, Night Sweats, Fatigue, Malaise Constitutional: Denies: Chills, Fever ENT: Denies: Head Aches Skin: Denies: Rash Pulmonary: Denies: Dyspnea, Cough Cardiovascular: Denies: Chest Pain, Palpitations, Orthopnea Gastrointestinal: Denies: Nausea, Vomiting, Abdominal Pain Genitourinary: Denies: Dysuria, Retention Musculoskeletal: Denies: Neck Pain, Back Pain, Joint Pain Neurological: Denies: Weakness, Numbness Psych: Reports: Mood Normal; Denies: Depression, Memory Issues Objective Physical Examination General Exam: Positive: No Acute Distress; Negative: Alert (Sleepy ) Eye Exam: Positive: PERRLA, Conjunctiva & lids normal; Negative: Sclera icteric ENT Exam: Positive: Atraumatic, Mucous membr. moist/pink, Pharynx Normal Chest Exam: Positive: Normal air movement, Wheezing (diffuse), Other (Normal r espiatory effort with NC 6L) Heart Exam: Positive: Rate Normal, Regular Rhythm, Normal S1, Normal S2; Negative: Murmurs, Rubs Telemetry: Positive: No significant arrhythmia Abdomen Exam: Positive: Soft Extremity Exam: Positive: Edema (1+BL pedal edema ); Negative: Clubbing, Cyanosis Skin Exam: Positive: Nl turgor and temperature, Breakdown Neuro Exam: Positive: Normal Speech Psych Exam: Positive: Mood NL Assessment /Plan Assessment Pt is a 80 year old female who presented to [facility] ED with shortness of breath and productive cough, with COPD, oxygen dependent, 3L at home. She was initially treated for COPD exacerbation with methylpred. and Moxifloxacin x 3d. Pt was transferred to ICU due to hyperglycemia requiring insulin drip complicating care. She developed worsening renal function, became oliguric and hypoxic; the latter 2/2 to her volume overload unresponsive to IV Lasix. Pt placed on BiPAP, now on HD, managed as per nephrology. 1. Acute on chronic respiratory failure, baseline CKDIII - 2/2 volume overload - initially managed for COPD exacerbation with steroids and moxifloxacin x 3D. - became hyperglycemic, requiring IV insulin and ICU transfer 2. Acute on chronic renal failure - pt developed worsening renal function with diuretics, eventually becoming oliguric - no response to IV Lasix; Negative renal USG/no benefit with tabares catheter; nephrology consulted - now on HD/management per nephrology - 2.5L removed yesterday with improved Cr; repeat HD today 3. Acute hypoxemic respiratory failure - currently refusing to wear BiPAP - pulm aware. - O2 saturations maintained with 8L by NC; pt resting comfortably - HD reportedly provided significant benefit to resp.; repeat today per nephrology 4. HTN - stable - continue with Imdur, Hydralazine, Chlorothiazide, Amlodipine 5. Hyperglycemia - managed with insulin/SS; POC glucose within acceptable limits today 6. Hyperparathyroidism, secondary - continue with Calcitriol 7. Anemia of chronic disease - management per nephrology with Aranesp 8. Acute on chronic diastolic heart failure - volume overloaded with BNP 3866 yesterday - HD per nephrology as noted above; now stable by physical exam - Stable BPs, weaning down on supplemental O2. Consider step-down in 24 hours if pt continues to improve with HD today. 9. Hyperlipidemia - Continue statin 10. Hyperkalemia - resolved following [place] Plan/VTE VTE Prophylaxis Ordered?: Yes (Heparin ) VS, I&O, 24H, Fishbone Vital Signs/I&O Vital Signs Date Time Temp Pulse Resp B/P (MAP) Pulse Ox O2 Delivery O2 Flow Rate FiO2 02/27/20 11:19 79 21 02/27/20 10:00 92 8.0 02/27/20 10:00 127/61 (83) Nasal Cannula 02/27/20 08:00 97.8 02/26/20 20:10 40 I&O- Last 24 Hours up to 6 AM 02/27/20 06:00 Intake Total 320 ml Output Total 3410 ml Balance -3090 ml Laboratory Data 24H LABS Laboratory Tests 2 02/26/20 12:05: Bedside Glucose (Misc Panel) 212H 02/26/20 18:22: Bedside Glucose (Misc Panel) 127H 02/26/20 20:50: Bedside Glucose (Misc Panel) 114H 02/27/20 04:31: Immature Granulocyte % (Auto) , Neutrophils (%) (Auto) , Nucleated Red Blood Cells % (auto) 0.2H, Neutrophils 75H, Band Neutrophils 3, Lymphocytes (Manual) 13L, Monocytes (Manual) 8H, Metamyelocytes 1H, Anisocytosis 2+, Platelet Estimate NORMAL, Anion Gap 8, Glomerular Filtration Rate 16.3L, Calcium Level 8.3L, Iron Level 38L, Total Iron Binding Capacity 345, Transferrin % Saturation 11.0L, Ferritin 54 CBC/BMP Laboratory Tests 02/27/20 04:31 Microbiology Microbiology 02/21/20 Blood Culture - Final, Complete NO GROWTH AFTER 5 DAYS 02/21/20 Blood Culture - Final, Complete NO GROWTH AFTER 5 DAYS 02/21/20 Respiratory Virus Panel (PCR) (DANITA) - Final, Complete BLANK FREGOSO PA-C February 27, 2020 12:38
[2020-02-27] MEDS: PANTOPRAZOLE 40MG TAB (PROTONIX) PO SCH (13:55)
[2020-02-27] MEDS: PREGABALIN 75 MG CAP(LYRICA) PO SCH ×3 (13:55→20:23)
[2020-02-27] MEDS: LACTOBACILLUS ACIDOPHILUS CAP (BACID) PO SCH ×2 (13:55→20:21)
[2020-02-27] MEDS: ASPIRIN 81 MG ENTERIC TAB PO SCH (13:55)
[2020-02-27] MEDS: amLODIPine 5 MG TAB PO SCH ×2 (13:56→20:22)
[2020-02-27] MEDS: CALCITRIOL 0.25 MCG CAP (S0169) PO SCH (13:56)
[2020-02-27] MEDS: ISOSORBIDE MON. (IMDUR) 30 MG XR TAB PO SCH (13:56)
[2020-02-27] MEDS: HEPARIN SOD (PORCINE) 5000UNITS/ML VIAL (J1644 PER 1000UNITS) SQ SCH ×2 (14:48→20:23)
[2020-02-27] MEDS: LEVEMIR (INSULIN DETEMIR) 1 UNITS/0.01ML SC SCH ×2 (14:48→20:23)
--- NOTE | 2020-02-27 15:20 | IPN ---
DATE: 02/27/2020 SUBJECTIVE: Patient was seen and examined at the bedside today morning in the intensive care unit (ICU). She was dialyzed emergently yesterday; 2.5 liters of fluid was removed. She was on bilevel positive airway pressure (BiPAP) yesterday. She refused BiPAP overnight. She is currently on nasal cannula, requiring almost 8 liters per minute. She reports her shortness of breath is slightly better today as compared with yesterday. Patient is otherwise afbrile. She continues to be on empiric intravenous (IV) antibiotics. There is no improvement in the renal function. She was started on Lasix injections along with a dose of Diuril last night; however, she is not making more than 35-40 mL of urine an hour. She remains oliguric. OBJECTIVE: Vital signs: Temperature is 98.1 degrees Fahrenheit, blood pressure 166/70, pulse is 76, respiratory rate of 20, saturating 93% on nasal cannula at 10 liters. Intake and output: Urine output recorded as 300 mL overnight. Ultrafiltration with hemodialysis was 2.5 liters. Weight on the bed scale is unavailable. PHYSICAL EXAM: General: Patient is awake, alert, oriented times three, morbidly obese, laying in bed, wearing nasal cannula, in moderate respiratory distress. Head and neck exam: Extraocular muscles intact. Pupils equally round and reactive to light. Mucous membranes are moist. Neck is supple. I could not appreciate jugular venous distention (JVD). Cardiovascular: S1, S2, regular rate. 2+ edema of the bilateral lower extremities. Respiratory: Decreased breath sounds at the bases bilaterally. Inspiratory crackles from bases up to the midlung zones. Abdomen: Is obese. Positive bowel sounds. Abdominal wall edema was noted. Old surgical scar in the suprapubic region. Musculoskeletal: 2+ edema in the bilateral lower extremities. She has clubbing of the fingernails. Genitourinary: She has an indwelling Reid catheter. Minimum amount of urine was found. Central nervous system (SPEECH AND LANGUAGE CLINICIAN): No focal deficit. Power is 5/5 in all extremities. LAB REVIEW: CBC showed a WBC of 13.3, hemoglobin is 8.5, platelets are 158. BMP showed sodium 130, potassium of 4.4, chloride 93, bicarbonate 29, BUN 69, creatinine is 2.9, iron level is 38, transferrin saturation is 11%, ferritin is 54. CURRENT INPATIENT MEDICATIONS: Patient's medications were all reviewed by myself. I have started the patient on IV Venofer with dialysis. She was also started on Lasix yesterday, which I have stopped now because of no significant response to IV diuretics. ASSESSMENT AND PLAN: 1. Acute renal failure superimposed on chronic kidney disease stage IV. Patient is still oliguric. She is fluid overloaded. She is being dialyzed again today. I will try to remove at least 3.5 kg of fluid today. 2. Acute decompensated diastolic congestive heart failure. Patient is significantly volume overloaded. She did not respond well to the IV diuretics. Volume status will be managed with dialysis. As mentioned above, 3.5 kg of fluid will be removed and I am hopeful that we will be able to wean her down to her baseline oxygen requirement of 3 liters per minute. 3. Acute chronic obstructive pulmonary disease (COPD) exacerbation. I think it is a combination of fluid overload and some underlying infection. She is empirically on IV meropenem. She continues to be on nebulizations. Her breathing is getting better with fluid removal. 4. Hyponatremia. Patient had hypervolemic hyponatremia. Sodium level is improving with dialysis and fluid removal. 5. Hyperkalemia. Potassium level has improved with dialysis. She is being dialyzed with a 2K bath. 6. Iron deficiency anemia. Patient is getting Venofer with dialysis, and she has also been started on Aranesp injections. 7. Hypertension with hypertensive heart disease. Continue current of amlodipine, hydralazine, and isosorbide. Blood pressure would also get better with optimization of fluid status. Total critical care time spent in the management of this patient today morning in the ICU, excluding the procedures, is 50 minutes.
[2020-02-27] MEDS: MEROPENEM INJ 500 MG in IV 1 EA IV SCH (16:00)
--- NOTE | 2020-02-27 17:00 | CCN ---
DATE: 02/27/2020 The patient was seen and examined this morning during bedside rounds. The patient refused bilevel positive airway pressure (BiPAP) overnight. She was complaining of anxiety and reportedly has been on benzodiazepines as an outpatient for her anxiety. She was given a one-time dose of Xanax at 0.125 mg which she states did not help with her anxiety. We did discuss with the patient that with her sleep apnea benzodiazepines use would be cautioned unless she was compliant with her pressure therapy at night which she is refusing. She does report her breathing improved after dialysis. She had removal of 2.5 liters with hemodialysis yesterday which she tolerated well. The patient has been afebrile overnight. PHYSICAL EXAMINATION: VITAL SIGNS: Temperature 98.1, pulse 76, respirations 20, blood pressure 160/70, oxygen saturation 88% on eight liters nasal cannula. GENERAL: The patient is a morbidly obese, female who is lying in bed on nasal cannula oxygen. She appears to be more comfortable and is able to speak in short complete sentences. She is alert and oriented times three, although she does drift back to sleep easily. HEENT: Normocephalic, atraumatic. Moist mucous membranes. Neck is thick and short and unable to evaluate jugular venous distention (JVD) due to neck habitus. Trachea is midline. Unable to palpate any cervical adenopathy. CARDIOVASCULAR: Regular rate and rhythm, normal S1, S2 with distant heart sounds. Unable to appreciate any murmurs. PULMONARY: There are bilateral crackles and diminished breath sounds bilaterally in the lower lobes. ABDOMEN: Morbidly obese, nontender to palpation, and nondistended. There are areas of skin tags and moles on the abdomen and throughout the rest of her skin. LOWER EXTREMITIES: There is bilateral pitting edema in the lower extremities, although it appears slightly improved today as well as some chronic venous stasis skin changes. LABORATORY DATA: WBC 13.3, hemoglobin 8.5, platelets 158. Chemistry: Sodium is 130, potassium 4.4, chloride 93, bicarbonate 29, BUN 69, creatinine 2.95, glucose is 128, procalcitonin 0.15. ASSESSMENT AND PLAN: Ms. Falcon is a 80-year female with a history of diabetes, chronic obstructive pulmonary disease (COPD) with chronic hypoxemic respiratory failure, obstructive sleep apnea (HOWARD) noncompliant with continuous positive airway pressure (CPAP), chronic kidney disease (CKD), hypertension, and hyperlipidemia who presented with complaints of worsening shortness of breath which was thought to be secondary to an acute COPD exacerbation. The patient was treated initially with IV steroids and Avelox. However, steroids had to be discontinued as she had significant hyperglycemia and had required an insulin drip and IV fluids in the intensive care unit (ICU). The patient was then noted to have worsening respiratory distress and increased orthopnea and lower extremity edema. Her repeat imaging had shown new bilateral pleural effusions with some associated atelectasis and increased pulmonary vascular congestion. The patient was also found to have increased crackles on examination. She was given IV Lasix. However, she had minimal urine output and nephrology was consulted for her worsening renal failure with the oliguria and minimal response to the IV Lasix. Critical care was consulted yesterday for placement of a hemodialysis catheter for initiation of emergent dialysis. Given her respiratory distress and orthopnea, the patient was placed on an noninvasive positive pressure ventilation as well to help with placement of the hemodialysis catheter. With bilevel positive airway pressure (BiPAP), she was able to lay in bed instead of sitting completely up. However, her head of bed did have to be elevated still and so an internal jugular vein hemodialysis catheter was not able to be placed and she had a femoral hemodialysis catheter placed instead. The patient received dialysis yesterday and had 2.5 liters of fluid removal which she tolerated well and did have some improvement in her respiratory distress. Acute on chronic hypoxemic respiratory failure in the setting of pulmonary edema and bilateral pleural effusions from fluid overload, complicated with a history of worsening renal failure and oliguria despite diuresis. The patient did have some symptomatic improvement with hemodialysis yesterday and removal of 2.5 liters of fluid. As per nephrology, she is planned for a repeat hemodialysis session with an additional 3 liters removal if tolerated. The patient was able to tolerate BiPAP initially yesterday and did have improvement in her orthopnea and in respiratory distress. Overnight, however, she refused BiPAP and she has also previously been noncompliant with CPAP as an outpatient for her sleep apnea. Did discuss with the patient today the importance of continuing with positive pressure therapy for her sleep apnea. The patient understands, however, and is adamant that she is unable to continue to tolerate it. We will continue with nasal cannula oxygen supplementation and wean down as tolerated to maintain oxygen saturation above 88%. The patient has a history of COPD and was initially admitted for an acute COPD exacerbation. She did receive IV steroids. However, IV steroids had to be discontinued due to significant hyperglycemia requiring an insulin drip. We will continue her with maintenance inhalers of Advair and DuoNebs. If she does have increased wheezing or shortness of breath, can consider budesonide nebulizer treatment as well as-needed. The patient was started on meropenem given concern for possible pneumonia. Her x-ray, however, is more consistent with fluid overload and the lower lobe opacities are likely atelectasis secondary to pleural effusion. Her procalcitonin was negative and so would discontinue antibiotics as she also has been afebrile. Deep vein thrombosis (DVT) prophylaxis with heparin. Code status: DO NOT RESUSCITATE (DNR)/DO NOT INTUBATE (DNI). Total critical care time spent not including procedures: Approximately 35 minutes. Please do not hesitate to call if any further questions or concerns.
[2020-02-27] MEDS: ROSUVASTATIN 10 MG TAB (CRESTOR) PO SCH (20:21)
[2020-02-27] MEDS: traMADol 50 MG TAB PO PRN (20:22)
[2020-02-28] VITALS (17 sets, daily range): BP systolic 114–151; BP diastolic 56–76; O2SAT 85–93
[2020-02-28] MEDS: **hydrALAZINE HCL** 25 MG TAB PO SCH ×4 (00:08→17:17)
[2020-02-28] MEDS: IPRATROPIUM 0.5MG/ALBUTEROL 2.5MG INH SOL UD 3ML (DUONEB)(J7620) NEB SCH ×6 (03:34→23:25)
[2020-02-28] MEDS: SLF 3 ML SYR IV SCH ×3 (06:04→21:07)
[2020-02-28 06:13] LABS: BASO % 0.1 % (0.0-1.0); EOS # 0.1 10^3/uL (0.0-0.5); EOS % 0.7 % (0.0-3.0); HEMATOCRIT 25.8 % (36.0-47.0); HEMOGLOBIN 8.2 g/dl (12.0-15.5); MEAN CORPUSCULAR HGB CONC 31.8 g/dl (32.0-36.5); MEAN CORPUSCULAR VOLUME 88.1 fl (80.0-96.0); MONO # 2.6 10^3/uL (0.0-0.8); MONO % 22.3 % (0.0-5.0); NEUTROPHILS # 6.5 10^3/uL (1.5-8.5); NEUTROPHILS % 55.4 % (36.0-66.0); PLATELET COUNT, AUTOMATED 162 10^3/uL (150-450); RED BLOOD COUNT 2.93 10^6/uL (4.00-5.40); WHITE BLOOD COUNT 11.7 10^3/uL (4.0-10.0)
[2020-02-28 06:34] LABS: CALCIUM LEVEL 8.6 MG/DL (8.8-10.2); CREATININE FOR GFR 2.13 MG/DL (0.55-1.30); GLOMERULAR FILTRATION RATE 23.8 (>39)
[2020-02-28] MEDS: HumaLOG INSULIN (NovoLOG) PER UNIT SC SCH ×4 (07:30→21:07)
[2020-02-28] MEDS: ADVAIR HFA 230/21MCG INHALER INH SCH ×2 (08:04→19:44)
[2020-02-28] MEDS: CALCITRIOL 0.25 MCG CAP (S0169) PO SCH (09:31)
[2020-02-28] MEDS: LACTOBACILLUS ACIDOPHILUS CAP (BACID) PO SCH ×2 (09:31→21:06)
[2020-02-28] MEDS: ASPIRIN 81 MG ENTERIC TAB PO SCH (09:31)
[2020-02-28] MEDS: HEPARIN SOD (PORCINE) 5000UNITS/ML VIAL (J1644 PER 1000UNITS) SQ SCH (09:32)
[2020-02-28] MEDS: PANTOPRAZOLE 40MG TAB (PROTONIX) PO SCH (09:32)
[2020-02-28] MEDS: amLODIPine 5 MG TAB PO SCH ×2 (09:32→21:06)
[2020-02-28] MEDS: ISOSORBIDE MON. (IMDUR) 30 MG XR TAB PO SCH (09:32)
[2020-02-28] MEDS: PREGABALIN 75 MG CAP(LYRICA) PO SCH ×3 (09:32→21:06)
[2020-02-28] MEDS: LEVEMIR (INSULIN DETEMIR) 1 UNITS/0.01ML SC SCH ×2 (09:33→21:07)
--- NOTE | 2020-02-28 12:12 | IPNPDOC ---
Date Seen The patient was seen on 02/28/20. Progress Note SUBJECTIVE: The patient underwent hemodialysis x 2 over the weekend with removal of 2500cc + 3700cc fluid. She states the dialysis made her feel "uncomfortable" but is unable to explain why. She does not feel short of breath this morning and her legs are no longer hurting. She is eager to go home. She is not having any trouble eating or drinking and denies any nausea/vomiting or diarrhea. PHYSICAL EXAMINATION: GENERAL APPEARANCE: Sitting at the bedside, appears stated age, no acute distre ss, calm, cooperative HEENT: EOMI, PERRLA, moist mucus membranes RESPIRATORY: Crackles are appreciated from the bases up to the middle lobes bilaterally CARDIOVASCULAR: unable to determine JVD due to large neck, RRR, no murmurs/rubs/gallops, normal S1 and S2 ABDOMEN: +BS, soft, nontender to palpation in all four quadrants, no masses/organomegaly EXTREMITIES: Chronic venous stasis changes, 1+ pitting edema bilaterally NEUROLOGICAL: CN 2-12 intact, No obvious focal deficits PSYCHIATRIC: normal mood/affect Skin: No rashes or ulcers appreciated, warm and well-perfused LN: No significant cervical or inguinal lymphadenopathy ASSESSMENT AND PLAN: This is a 80-year-old female with history of COPD on 3 L oxygen at home who presented with shortness of breath, found to have COPD exacerbation and was initially started on IV steroids which had been de-escalated. The patient also has a history of diastolic heart failure and at the time of presentation was given 40 of torsemide BID, began to have worsening renal failure requiring emergent dialysis. She is now saturating in the mid-90s on 8LNC. PROBLEMS: 1. Acute renal failure on CKD III: -renal function today is better at 43/2.13. Although she still has profound crackles, will hold off on HD today. UOP has somewhat picked up. Next HD hannah orrow AM -Nephrology consulted. Patient has had HD x 2 -Continue tabares catheter for now -Renal US negative for any abnormality -No electrolyte abnormalities today -Continue Calcitriol -Erp Analyst consulted. Appreciate recommendations. -Continue Venofer for CHITRA 2. Acute hypoxic respiratory failure 2/2 COPD exacerbation vs fluid overload: -Steroids d/c'd 2/2 hyperglycemia -s/p moxifloxacin x 3 days -s/p Meropenem x2 doses, no signs of infection at this point. SOB determined to be more likely 2/2 fluid overload -Continue inhalers/neb treatments -BNP found to be 3866 -CXR more suggestive of pulmonary vascular congestion -Continue DuoNebs, Advair 3. Hyperglycemia: resolved. FSBS wnl over the weekend -Continue Levemir 40U BID -SSI with hypoglycemic protocol 4. HTN: BP within normal limits -Continue Amlodipine, Imdur 5. HLD: -Continue Crestor DVT ppx: SQH GI ppx: Protonix PT, OT on board. Attending attestation: I evaluated and examined the patient in person; I discussed the care with Resident in detail and agree with the plan above. VS, I&O, 24H, Fishbone Vital Signs/I&O Vital Signs Date Time Temp Pulse Resp B/P (MAP) Pulse Ox O2 Delivery O2 Flow Rate FiO2 02/28/20 09:32 151/65 02/28/20 09:32 76 02/28/20 04:00 8.0 02/28/20 04:00 97.9 18 96 High Flow Cannula 02/26/20 20:10 40 l I&O- Last 24 Hours up to 6 AM 02/28/20 06:00 Intake Total 890 ml Output Total 4110 ml Balance -3220 ml Laboratory Data 24H LABS Laboratory Tests 2 02/27/20 11:52: Bedside Glucose (Misc Panel) 105 02/27/20 17:12: Bedside Glucose (Misc Panel) 193H 02/27/20 20:11: Bedside Glucose (Misc Panel) 207H 02/28/20 05:48: Immature Granulocyte % (Auto) 4.5H, Neutrophils (%) (Auto) 55.4, Lymphocytes (%) (Auto) 17.0L, Monocytes (%) (Auto) 22.3H, Eosinophils (%) (Auto) 0.7, Basophils (%) (Auto) 0.1, Neutrophils # (Auto) 6.5, Lymphocytes # (Auto) 2.0, Monocytes # (Auto) 2.6H, Eosinophils # (Auto) 0.1, Basophils # (Auto) 0.0, Nucleated Red Blood Cells % (auto) 0.8H, Anion Gap 5L, Glomerular Filtration Rate 23.8L, Calcium Level 8.6L CBC/BMP Laboratory Tests 02/28/20 05:48 Microbiology Microbiology 02/21/20 Blood Culture - Final, Complete NO GROWTH AFTER 5 DAYS 02/21/20 Blood Culture - Final, Complete NO GROWTH AFTER 5 DAYS 02/21/20 Respiratory Virus Panel (PCR) (DANITA) - Final, Complete GME ATTESTATION GME ATTESTATION My faculty preceptor for this patient encounter was physically present during the encounter and was fully available. All aspects of the patient interview, examination, medical decision making process, and medical care plan development were reviewed and approved by the faculty preceptor. The faculty preceptor is aware and concurs with the plan as stated in the body of this note and will attest to such by his/her cosignature. HALEY SALAZAR MD February 28, 2020 12:12 SCOTT NASSAR MD February 28, 2020 21:39
[2020-02-28 17:54] LABS: HEMATOCRIT 28.5 % (36.0-47.0)
--- NOTE | 2020-02-28 18:04 | IPN ---
DATE: 02/28/2020 SUBJECTIVE: The patient was seen and examined at the bedside today morning. She is afebrile. Her breathing is seems to be getting better. She was dialyzed again yesterday. There was 3.7 liters of fluid removed, and she tolerated well. She is currently oxygenating well on about 4 liters via nasal cannula. Leukocytosis is getting better, and the patient refused bilevel positive airway pressure (BiPAP) last night as well. She is just awaiting the nasal cannula. She also told me today morning that she does not even like the dialysis machine. OBJECTIVE: Vital signs: Temperature is 97.9 degrees Fahrenheit, blood pressure is 114/62, pulse is 74, respiratory rate of 18, saturating 96% on nasal cannula at 4 liters. Intake and output: Urine output recorded is only 110 mL. Ultrafiltration with hemodialysis was 3.7 liters. Weight in the bed scale is 110.2 kg. PHYSICAL EXAMINATION: GENERAL: The patient is awake, alert, oriented times two, morbidly obese, lying in the bed, wearing nasal cannula. HEAD AND NECK: Extraocular muscles intact. Pupils equally round and reactive to light. Mucous membranes are moist. Neck is supple. I could not appreciate jugular venous distention (JVD) because of body habitus. CARDIOVASCULAR: S1, S2. Edema 2+ of the bilateral lower extremities up to thighs. RESPIRATORY: Decreased breath sounds bilaterally at the bases. Inspiratory crackles bilaterally at the bases up to midlung zones. ABDOMEN: Soft, obese. Positive bowel sounds. There is abdominal wall edema noted. MUSCULOSKELETAL: Edema of the lower extremities up to thighs. Clubbing of the fingernails. CENTRAL NERVOUS SYSTEM: No focal deficit. Power is 5/5 in bilateral upper extremities. LABORATORY REVIEW: CBC showed a WBC of 11.7, hemoglobin 8.2, platelets of 162. BMP showed sodium 134, potassium 4, chloride 98, bicarbonate 31, BUN 43, creatinine is 2.1. CURRENT INPATIENT MEDICATIONS: The patient's medications were all reviewed by myself. Her intravenous (IV) antibiotics have been stopped now. There is no significant change in the medications today as compared to yesterday. ASSESSMENT AND PLAN: 1. Acute renal failure superimposed on chronic kidney disease, stage IV. The patient still has oliguria. No significant improvement in the renal function. I highly suspect that patient is going to need long-term dialysis. She was dialyzed 2 days in a row. Next hemodialysis session will be tomorrow morning. I have also requested interventional radiology to place a tunneled dialysis catheter so we can remove the left groin dialysis catheter, which is a risk for infection. 2. Acute decompensated diastolic congestive heart failure. The patient still has significant volume overload. She does not want to have another session of dialysis, because she has to lie down in the bed for 3 hours. I will give her a holiday today, and she will get another dialysis session tomorrow morning. 3. Acute chronic obstructive pulmonary disease (COPD) exacerbation. The patient is currently getting nebulizations. She also got IV antibiotics. Procalcitonin is negative, so antibiotics have been stopped. The rest of the management is as per primary team. Fluid is being optimized with dialysis. 4. Hyponatremia. Hyponatremia is secondary to hypovolemia. Sodium is getting better with daily fluid removal. 5. Iron deficiency anemia. Continue IV Venofer and Aranesp with dialysis. 6. Hypertension with hypertensive heart disease. The patient has diastolic dysfunction. Continue current dose of hydralazine, isosorbide, and amlodipine. Beta blockers and not being given because of COPD. DISPOSITION: The patient can be downgraded out of the intensive care unit (ICU). Reid catheter can be removed. She will be dialyzed in center tomorrow, and she needs a tunneled dialysis catheter.
[2020-02-28] MEDS: ROSUVASTATIN 10 MG TAB (CRESTOR) PO SCH (21:06)
[2020-02-29] VITALS (14 sets, daily range): BP systolic 123–168; BP diastolic 56–71; O2SAT 81–93
[2020-02-29] MEDS: **hydrALAZINE HCL** 25 MG TAB PO SCH ×4 (00:58→17:30)
[2020-02-29] MEDS: IPRATROPIUM 0.5MG/ALBUTEROL 2.5MG INH SOL UD 3ML (DUONEB)(J7620) NEB SCH ×6 (04:00→23:29)
[2020-02-29 05:23] LABS: BASO % 0.2 % (0.0-1.0); EOS # 0.2 10^3/uL (0.0-0.5); EOS % 1.4 % (0.0-3.0); HEMATOCRIT 26.3 % (36.0-47.0); HEMOGLOBIN 8.3 g/dl (12.0-15.5); LYMPH % 13.2 % (24.0-44.0); MEAN CORPUSCULAR HEMOGLOBIN 28.6 pg (27.0-33.0); MEAN CORPUSCULAR HGB CONC 31.6 g/dl (32.0-36.5); MEAN CORPUSCULAR VOLUME 90.7 fl (80.0-96.0); MONO % 20.1 % (0.0-5.0); NEUTROPHILS % 61.2 % (36.0-66.0); PLATELET COUNT, AUTOMATED 185 10^3/uL (150-450); WHITE BLOOD COUNT 14.8 10^3/uL (4.0-10.0)
[2020-02-29 05:42] LABS: CALCIUM LEVEL 8.7 MG/DL (8.8-10.2); CREATININE FOR GFR 2.3 MG/DL (0.55-1.30); GLOMERULAR FILTRATION RATE 21.8 (>39); POTASSIUM SERUM 4.2 MEQ/L (3.5-5.1)
[2020-02-29] MEDS: SLF 3 ML SYR IV SCH ×3 (06:04→20:58)
[2020-02-29] MEDS: ADVAIR HFA 230/21MCG INHALER INH SCH ×2 (07:42→20:31)
[2020-02-29] MEDS: HumaLOG INSULIN (NovoLOG) PER UNIT SC SCH ×4 (07:55→20:50)
[2020-02-29] MEDS: ASPIRIN 81 MG ENTERIC TAB PO SCH (07:55)
[2020-02-29] MEDS: LEVEMIR (INSULIN DETEMIR) 1 UNITS/0.01ML SC SCH ×2 (07:55→20:57)
[2020-02-29] MEDS: LACTOBACILLUS ACIDOPHILUS CAP (BACID) PO SCH ×2 (07:55→20:57)
[2020-02-29] MEDS: amLODIPine 5 MG TAB PO SCH ×2 (07:56→20:59)
[2020-02-29] MEDS: PANTOPRAZOLE 40MG TAB (PROTONIX) PO SCH (07:56)
[2020-02-29] MEDS: ISOSORBIDE MON. (IMDUR) 30 MG XR TAB PO SCH (07:56)
[2020-02-29] MEDS: CALCITRIOL 0.25 MCG CAP (S0169) PO SCH (07:56)
[2020-02-29] MEDS: PREGABALIN 75 MG CAP(LYRICA) PO SCH ×3 (07:56→20:57)
[2020-02-29] MEDS: TORSEMIDE 20 MG TAB PO SCH ×2 (09:00→17:33)
[2020-02-29 10:09] LABS: PTH INTACT 150.6 PG/ML (18.5-88.0)
--- NOTE | 2020-02-29 13:48 | IPNPDOC ---
Date Seen The patient was seen on 02/29/20. Progress Note SUBJECTIVE: The patient underwent hemodialysis holiday yesterday as she had been uncomfortable, plan will be to undergo dialysis today. She is on less oxygen as of this morning, but is still reporting she gets short of breath with exertion. She worked with PT and OT who recommend more rehabilitation. She has no other complaints this morning. PHYSICAL EXAMINATION: GENERAL APPEARANCE: Sitting at the bedside, appears stated age, no acute distress, calm, cooperative HEENT: EOMI, PERRLA, moist mucus membranes RESPIRATORY: Crackles are appreciated from the bases up to the middle lobes bilaterally CARDIOVASCULAR: unable to determine JVD due to large neck, RRR, no murmurs/rubs/gallops, normal S1 and S2 ABDOMEN: +BS, soft, nontender to palpation in all four quadrants, no masses/organomegaly EXTREMITIES: Chronic venous stasis changes, 1+ pitting edema bilaterally NEUROLOGICAL: CN 2-12 intact, No obvious focal deficits PSYCHIATRIC: normal mood/affect Skin: No rashes or ulcers appreciated, warm and well-perfused LN: No significant cervical or inguinal lymphadenopathy ASSESSMENT AND PLAN: This is a 80-year-old female with history of COPD on 3 L oxygen at home who presented with shortness of breath, found to have COPD exacerbation and was initially started on IV steroids which had been de-escalated. The patient also has a history of diastolic heart failure and at the time of presentation was given 40 of torsemide BID, began to have worsening renal failure requiring emergent dialysis. She is now saturating in the mid-90s on 8LNC. PROBLEMS: 1. Acute renal failure on CKD III: -renal function today is better at 56/2.30 -Nephrology consulted. HD today. She will most likely need HD terminal gauger. Torsemide 40mg BID ordered -UOP is picking up -Renal US negative for any abnormality -No electrolyte abnormalities today -Continue Calcitriol -Boot And Saddle Repair Person consulted. Appreciate recommendations. -Continue Venofer for CHITRA 2. Acute hypoxic respiratory failure 2/2 COPD exacerbation vs fluid overload: -Steroids d/c'd 2/2 hyperglycemia -s/p moxifloxacin x 3 days -s/p Meropenem x2 doses, no signs of infection at this point. SOB determined to be more likely 2/2 fluid overload -Continue inhalers/neb treatments -BNP found to be 3866 -CXR more suggestive of pulmonary vascular congestion -Continue DuoNebs, Advair 3. Hyperglycemia: resolved. FSBS wnl over the weekend -Continue Levemir 40U BID -SSI with hypoglycemic protocol 4. HTN: BP within normal limits -Continue Amlodipine, Imdur 5. HLD: -Continue Crestor DVT ppx: SQH GI ppx: Protonix VS, I&O, 24H, Fishbone Vital Signs/I&O Vital Signs Date Time Temp Pulse Resp B/P (MAP) Pulse Ox O2 Delivery O2 Flow Rate FiO2 02/29/20 08:00 97.7 79 24 133/58 (83) 92 High Flow Cannula 5.0 02/26/20 20:10 40 I&O- Last 24 Hours up to 6 AM 02/29/20 06:00 Intake Total 1800 ml Output Total 435 ml Balance 1365 ml Laboratory Data 24H LABS Laboratory Tests 2 02/28/20 17:01: Bedside Glucose (Misc Panel) 181H 02/28/20 20:54: Bedside Glucose (Misc Panel) 263H 02/29/20 05:03: Immature Granulocyte % (Auto) 3.9H, Neutrophils (%) (Auto) 61.2, Lymphocytes (%) (Auto) 13.2L, Monocytes (%) (Auto) 20.1H, Eosinophils (%) (Auto) 1.4, Basophils (%) (Auto) 0.2, Neutrophils # (Auto) 9.0H, Lymphocytes # (Auto) 2.0, Monocytes # (Auto) 3.0H, Eosinophils # (Auto) 0.2, Basophils # (Auto) 0.0, Nucleated Red Blood Cells % (auto) 0.3H, Anion Gap 7L, Glomerular Filtration Rate 21.8L, Calcium Level 8.7L CBC/BMP Laboratory Tests 02/28/20 17:43 02/29/20 05:03 Microbiology Microbiology 02/21/20 Blood Culture - Final, Complete NO GROWTH AFTER 5 DAYS 02/21/20 Blood Culture - Final, Complete NO GROWTH AFTER 5 DAYS 02/21/20 Respiratory Virus Panel (PCR) (DANITA) - Final, Complete GME ATTESTATION GME ATTESTATION My faculty preceptor for this patient encounter was physically present during the encounter and was fully available. All aspects of the patient interview, examination, medical decision making process, and medical care plan development were reviewed and approved by the faculty preceptor. The faculty preceptor is aware and concurs with the plan as stated in the body of this note and will attest to such by his/her cosignature. HALEY SALAZAR MD February 29, 2020 13:48
[2020-02-29 15:19] LABS: ISLET CELL ANTIBODIES Negative (Neg:<1:1)
[2020-02-29] MEDS: ROSUVASTATIN 10 MG TAB (CRESTOR) PO SCH (20:57)
[2020-02-29] MEDS ORDERED: MOM 30ML SUSPENSION UDC PO PRN (22:45)
[2020-03-01] VITALS (17 sets, daily range): BP systolic 118–152; BP diastolic 47–70; O2SAT 81–98
[2020-03-01] MEDS: **hydrALAZINE HCL** 25 MG TAB PO SCH ×4 (00:24→17:28)
[2020-03-01] MEDS: IPRATROPIUM 0.5MG/ALBUTEROL 2.5MG INH SOL UD 3ML (DUONEB)(J7620) NEB SCH ×5 (03:37→18:27)
[2020-03-01 04:34] LABS: BASO % 0.2 % (0.0-1.0); EOS # 0.1 10^3/uL (0.0-0.5); EOS % 0.6 % (0.0-3.0); HEMATOCRIT 28.8 % (36.0-47.0); LYMPH # 2.1 10^3/uL (1.5-5.0); LYMPH % 12.1 % (24.0-44.0); MEAN CORPUSCULAR HGB CONC 31.3 g/dl (32.0-36.5); MEAN CORPUSCULAR VOLUME 89.7 fl (80.0-96.0); MONO # 2.8 10^3/uL (0.0-0.8); MONO % 16.1 % (0.0-5.0); NEUTROPHILS # 11.6 10^3/uL (1.5-8.5); NEUTROPHILS % 67.6 % (36.0-66.0); PLATELET COUNT, AUTOMATED 200 10^3/uL (150-450); RED BLOOD COUNT 3.21 10^6/uL (4.00-5.40); WHITE BLOOD COUNT 17.1 10^3/uL (4.0-10.0)
[2020-03-01 04:52] LABS: CALCIUM LEVEL 9.3 MG/DL (8.8-10.2); CREATININE FOR GFR 1.67 MG/DL (0.55-1.30); GLOMERULAR FILTRATION RATE 31.5 (>39); POTASSIUM SERUM 4.3 MEQ/L (3.5-5.1)
[2020-03-01] MEDS: SLF 3 ML SYR IV SCH ×3 (05:58→22:00)
[2020-03-01 07:02] LABS: HEPATITIS B SURFACE ANTIBODY NEGATIVE (POSITIVE)
[2020-03-01 07:12] LABS: HEPATITIS B SURFACE ANTIGEN NEGATIVE (NEGATIVE)
[2020-03-01 07:41] LABS: HEPATITIS B CORE ANTIBODY IGM NEGATIVE (NEGATIVE)
[2020-03-01] MEDS: ADVAIR HFA 230/21MCG INHALER INH SCH ×2 (08:02→18:27)
--- NOTE | 2020-03-01 08:18 | IPN ---
DATE OF SERVICE: 02/29/2020 SUBJECTIVE: The patient was seen and examined at the bedside today morning during hemodialysis procedure. She is tolerating the hemodialysis procedure well. The patient is also scheduled to have a tunneled dialysis catheter to be placed in the afternoon today. She is currently stable on oxygen at 5 liters nasal cannula. OBJECTIVE: Vital Signs: Temperature is 97.7 degrees Fahrenheit, blood pressure 133/58, pulse is 79, respiratory rate of 24, saturating 92% on high flow cannula at 5 liters. Intake and Output: Urine output recorded as 500 mL since overnight. Weight in the bed scale 106.5 kg. PHYSICAL EXAMINATION: General: The patient is laying in bed getting hemodialysis done. She is morbidly obese. Head and Neck Exam: Extraocular muscles intact. Pupils equally round and reactive to light. Mucous membranes are moist. Neck is supple. I could not appreciate jugular venous distention (JVD). Cardiovascular: S1, S2. Regular rate. 2+ edema of the bilateral lower extremities up to the thighs. Respiratory: Decreased breath sounds at the bases with inspiratory crackles bilaterally at bases up to the midlung zones. Abdomen: Soft, obese, positive bowel sounds. I could not appreciate any organomegaly. Genitourinary: Reid catheter has been removed now. Musculoskeletal: Clubbing of the fingernails. Edema of the lower extremities as mentioned above. VENEER STAPLER: No focal deficit. Power is 5/5 in bilateral upper extremities LAB REVIEW: CBC showed a WBC of 14.8, hemoglobin 8.3, platelets are 185. BMP showed sodium 136, potassium 4.2, chloride 99, bicarb 30, BUN 56, and creatinine is 2.3. CURRENT INPATIENT MEDICATIONS: The patient's medications were all reviewed by myself. I have started the patient on torsemide 40 mg by mouth twice a day. No other significant change in the medications today as compared with yesterday. ASSESSMENT AND PLAN: 1. Acute renal failure superimposed on chronic renal disease stage IV. The patient is still dialysis dependent. She still has anasarca. She is being dialyzed today. I will try to remove at least 3.5 to 4 kg of fluid. If needed, she will get an extra session of dialysis tomorrow morning as well. 2. Acute decompensated diastolic congestive heart failure. I have restarted the patient on home dose of torsemide 40 mg by mouth twice a day. The rest of the fluid management is being done with the dialysis. 3. Hyponatremia. Hyponatremia is resolved after fluid removal. 4. Iron deficiency anemia. Continue Aranesp and Venofer. Hemoglobin level is expected to improve after a few days. 5. Hypertension with hypertensive heart disease. Continue current dose of hydralazine, isosorbide and amlodipine. Blood pressures are better. 6. Acute chronic obstructive pulmonary disease (COPD) exacerbation. The patient's oxygen requirement is going down. She is getting nebulizations. Most of her shortness of breath was secondary to fluid overload. 7. Need for dialysis access. The patient has a left thigh non tunneled dialysis catheter which is being used at this time and there is a high risk of infection. She is going to interventional radiology (IR) today for a tunneled dialysis catheter placement.
[2020-03-01] MEDS: LEVEMIR (INSULIN DETEMIR) 1 UNITS/0.01ML SC SCH ×2 (08:28→21:48)
[2020-03-01] MEDS: HumaLOG INSULIN (NovoLOG) PER UNIT SC SCH ×4 (08:29→21:00)
[2020-03-01] MEDS: TORSEMIDE 20 MG TAB PO SCH ×2 (08:30→17:27)
[2020-03-01] MEDS: LACTOBACILLUS ACIDOPHILUS CAP (BACID) PO SCH ×2 (08:30→21:47)
[2020-03-01] MEDS: ASPIRIN 81 MG ENTERIC TAB PO SCH (08:30)
[2020-03-01] MEDS: CALCITRIOL 0.25 MCG CAP (S0169) PO SCH (08:30)
[2020-03-01] MEDS: PANTOPRAZOLE 40MG TAB (PROTONIX) PO SCH (08:31)
[2020-03-01] MEDS: PREGABALIN 75 MG CAP(LYRICA) PO SCH ×3 (08:32→21:47)
[2020-03-01] MEDS: ISOSORBIDE MON. (IMDUR) 30 MG XR TAB PO SCH (08:32)
[2020-03-01] MEDS: amLODIPine 5 MG TAB PO SCH ×2 (08:32→21:48)
[2020-03-01] MEDS ORDERED: VANCOMYCIN HCL 1,000 MG, VIAL MATE ADAPTER 1 EACH in D5W 250 ML IV ONE ×2 (10:00→11:00)
[2020-03-01] MEDS ORDERED: LIDOCAINE 1% MDV 20ML VIAL As Ordered ONE (13:20)
[2020-03-01] MEDS ORDERED: diphenhydrAMINE 50MG/ML VIAL (J1200) As Ordered ONE ×2 (13:26→13:52)
[2020-03-01] MEDS ORDERED: fentaNYL 100 MCG/2 ML INJECTION (J3010) As Ordered ONE (13:26)
[2020-03-01] MEDS ORDERED: MIDAZOLAM INJ 2MG/2ML VIAL (J2250 PER 1MG) As Ordered ONE (13:27)
[2020-03-01] MEDS ORDERED: ceFAZolin 1GM VIAL (J0690 PER 500MG) As Ordered ONE (13:32)
--- NOTE | 2020-03-01 14:06 | POST-OPPD ---
Postoperative Procedure Note Date Of Procedure: March 01, 2020 Time Of Procedure: 14:05 PREOPERATIVE DIAGNOSIS: RF POSTOPERATIVE DIAGNOSIS: same FINDINGS: patent right IJ PROCEDURE: right sided permcath placed. catheter ready to use SURGEON: magalis ANESTHESIA: mod sed ESTIMATED BLOOD LOSS: < 5 ml COMPLICATIONS: none POSTOPERATIVE CONDITION: stable NICOLA WOODS MD March 01, 2020 14:06
--- NOTE | 2020-03-01 14:06 | IRMSE ---
[facility] IR Moderate Sedation Eval. Date and Time Date: March 01, 2020 ASA Classification ASA Classification: III-Severe systemic dis. Mallampati Score: III NPO: Yes Obstructive Sleep Apnea: Yes Interval Plan: moderate sedation NICOLA WOODS MD March 01, 2020 14:06
[2020-03-01] MEDS: VANCOMYCIN HCL 1,000 MG, VIAL MATE ADAPTER 1 EACH in D5W 250 ML IV SCH (16:16)
--- NOTE | 2020-03-01 17:23 | IPNPDOC ---
Date Seen The patient was seen on 03/01/20. Progress Note SUBJECTIVE: The patient was in good spirits this morning but is wishing to go home. She has been accepted to ARU but is unsure whether she would like to go. She went to HD this morning and then to IR for dialysis line placement. PT/OT reporting that she may need more rehabilitation at this time. PHYSICAL EXAMINATION: GENERAL APPEARANCE: Sitting at the bedside, appears stated age, no acute d istress, calm, cooperative HEENT: EOMI, PERRLA, moist mucus membranes RESPIRATORY: faint crackles appreciated at the bases bilaterally CARDIOVASCULAR: unable to determine JVD due to large neck, RRR, no murmurs/rubs/gallops, normal S1 and S2 ABDOMEN: +BS, soft, nontender to palpation in all four quadrants, no masses/organomegaly EXTREMITIES: Chronic venous stasis changes, 1+ pitting edema bilaterally NEUROLOGICAL: CN 2-12 intact, No obvious focal deficits PSYCHIATRIC: normal mood/affect Skin: No rashes or ulcers appreciated, warm and well-perfused LN: No significant cervical or inguinal lymphadenopathy ASSESSMENT AND PLAN: This is a 80-year-old female with history of COPD on 3 L oxygen at home who presented with shortness of breath, found to have COPD exacerbation and was initially started on IV steroids and antibiotics which had been de-escalated. The patient's hospital course was complicated by fluid overload and subsequent acute renal failure on CKD III and she is now undergoing hemodialysis for the forseeable future. PROBLEMS: 1. Acute renal failure on HD: -renal function today improving with dialysis -Nephrology consulted. HD today. She will most likely need HD terminal operations supervisor. Torsemide 40mg BID continued -UOP is picking up -Renal US negative for any abnormality -No electrolyte abnormalities today -Continue Calcitriol -Curb Machine Operator consulted. Appreciate recommendations. -Continue Venofer for CHITRA 2. Acute hypoxic respiratory failure 2/2 COPD exacerbation vs fluid overload: -Steroids d/c'd 2/2 hyperglycemia -s/p moxifloxacin x 3 days -s/p Meropenem x2 doses, no signs of infection at this point. SOB determined to be more likely 2/2 fluid overload -Continue inhalers/neb treatments -BNP found to be 3866 -CXR more suggestive of pulmonary vascular congestion -Continue Chastity Wagner 3. Hyperglycemia: resolved. FSBS wnl over the weekend -Continue Levemir 40U BID -SSI with hypoglycemic protocol 4. HTN: BP within normal limits -Continue Amlodipine, Imdur 5. HLD: -Continue Crestor DVT ppx: SQH GI ppx: Protonix DISPO: likely dc to ARU within 24h VS, I&O, 24H, Fishbone Vital Signs/I&O Vital Signs Date Time Temp Pulse Resp B/P (MAP) Pulse Ox O2 Delivery O2 Flow Rate FiO2 03/01/20 14:13 79 22 100 Nasal Cannula 5 03/01/20 12:35 98.4 40 03/01/20 08:32 125/59 I&O- Last 24 Hours up to 6 AM 03/01/20 06:00 Intake Total 840 ml Output Total 4100 ml Balance -3260 ml Laboratory Data 24H LABS Laboratory Tests 2 02/29/20 17:11: Bedside Glucose (Misc Panel) 140H 02/29/20 20:46: Bedside Glucose (Misc Panel) 226H 03/01/20 03:49: Immature Granulocyte % (Auto) 3.4H, Neutrophils (%) (Auto) 67.6H, Lymphocytes (%) (Auto) 12.1L, Monocytes (%) (Auto) 16.1H, Eosinophils (%) (Auto) 0.6, Basophils (%) (Auto) 0.2, Neutrophils # (Auto) 11.6H, Lymphocytes # (Auto) 2.1, Monocytes # (Auto) 2.8H, Eosinophils # (Auto) 0.1, Basophils # (Auto) 0.0, Nucleated Red Blood Cells % (auto) 0.4H, Anion Gap 6L, Glomerular Filtration Rate 31.5L, Calcium Level 9.3 CBC/BMP Laboratory Tests 03/01/20 03:49 Microbiology Microbiology 02/21/20 Blood Culture - Final, Complete NO GROWTH AFTER 5 DAYS 02/21/20 Blood Culture - Final, Complete NO GROWTH AFTER 5 DAYS 02/21/20 Respiratory Virus Panel (PCR) (DANITA) - Final, Complete GME ATTESTATION GME ATTESTATION My faculty preceptor for this patient encounter was physically present during the encounter and was fully available. All aspects of the patient interview, examination, medical decision making process, and medical care plan development were reviewed and approved by the faculty preceptor. The faculty preceptor is aware and concurs with the plan as stated in the body of this note and will attest to such by his/her cosignature. HALEY SALAZAR MD March 01, 2020 17:23
[2020-03-01] MEDS: ROSUVASTATIN 10 MG TAB (CRESTOR) PO SCH (21:47)
[2020-03-02] VITALS (8 sets, daily range): BP systolic 102–166; BP diastolic 58–82; O2SAT 93–96
[2020-03-02] MEDS: **hydrALAZINE HCL** 25 MG TAB PO SCH ×5 (00:22→23:46)
[2020-03-02] MEDS: IPRATROPIUM 0.5MG/ALBUTEROL 2.5MG INH SOL UD 3ML (DUONEB)(J7620) NEB SCH ×7 (04:00→23:21)
[2020-03-02] MEDS: SLF 3 ML SYR IV SCH ×3 (06:03→20:49)
[2020-03-02 06:21] LABS: BASO % 0.3 % (0.0-1.0); EOS # 0.2 10^3/uL (0.0-0.5); EOS % 1.7 % (0.0-3.0); HEMATOCRIT 28.4 % (36.0-47.0); HEMOGLOBIN 8.9 g/dl (12.0-15.5); LYMPH # 2.2 10^3/uL (1.5-5.0); LYMPH % 17.3 % (24.0-44.0); MEAN CORPUSCULAR HEMOGLOBIN 28.6 pg (27.0-33.0); MEAN CORPUSCULAR HGB CONC 31.3 g/dl (32.0-36.5); MEAN CORPUSCULAR VOLUME 91.3 fl (80.0-96.0); MONO # 2.1 10^3/uL (0.0-0.8); MONO % 16.4 % (0.0-5.0); NEUTROPHILS # 7.6 10^3/uL (1.5-8.5); NEUTROPHILS % 59.3 % (36.0-66.0); PLATELET COUNT, AUTOMATED 170 10^3/uL (150-450); RED BLOOD COUNT 3.11 10^6/uL (4.00-5.40); WHITE BLOOD COUNT 12.9 10^3/uL (4.0-10.0)
--- NOTE | 2020-03-02 06:44 | IPN ---
DATE OF SERVICE: 03/01/2020 SUBJECTIVE: The patient was seen and examined at the bedside today morning during hemodialysis procedure. She is getting the extra ultrafiltration done today. She was dialyzed yesterday and 3.7 liters of fluid was removed and she is tolerating the further ultrafiltration today. The patient is going to have a tunneled dialysis catheter placed after the dialysis session today. OBJECTIVE: Vital Signs: Temperature is 96.8 degrees Fahrenheit, blood pressure 125/59, pulse is 67, respiratory rate 18, saturating 98% on nasal cannula at 4 liters. Intake and Output: Urine output recorded as 700 mL yesterday. There is no urine output recorded since overnight. Ultrafiltration with hemodialysis was 3.7 liters. Weight in the bed scale is 104.7 kg. PHYSICAL EXAMINATION: General: The patient is awake, alert, oriented x3, laying in bed, getting hemodialysis done. Head and Neck Exam: The patient is wearing nasal cannula. Mucous membranes are moist. Neck is supple. I cannot appreciate jugular venous distention (JVD). Cardiovascular: S1, S2. Regular rate. Just 1+ edema of the bilateral lower extremities. Respiratory: Chest is much more clear now. There is minimal inspiratory crackles at the bases. No active rales or rhonchi. Abdomen: Soft, obese, positive bowel sounds. Nontender. No organomegaly. Musculoskeletal: Clubbing of the fingernails. Edema of the lower extremities is significantly better. BUTTON SPINDLER: No focal deficit. Power is 5/5 in all extremities. LAB REVIEW: CBC showed WBC of 17.1, hemoglobin is 9, platelets are 200. BMP showed sodium 134, potassium 4.3, chloride 98, bicarb 30, BUN 31, creatinine 1.6. CURRENT INPATIENT MEDICATIONS: The patient's medications were all reviewed by myself. She was started on vancomycin 1 gram IV with hemodialysis because she has a non tunneled dialysis catheter in the groin that will need to be removed today. No other change in the medications today as compared with yesterday. ASSESSMENT/PLAN: 1. Acute renal failure superimposed on chronic kidney disease stage IV. The patient is still dialysis dependent. She got dialysis yesterday. Today, she is getting ultrafiltration done for optimization of fluid status. The patient is going to get tunneled dialysis catheter placed today. 2. Leukocytosis. The patient has a non tunneled dialysis catheter in the groin that needs to be removed today. She will get a dose of vancomycin after dialysis today. 3. Acute decompensated diastolic congestive heart failure. The patient has been started on torsemide 40 mg by mouth twice a day. Volume status has been significantly optimized with [id number] ultrafiltration and hemodialysis sessions. 4. Iron-deficiency anemia. She continues to be on Aranesp and Venofer. Hemoglobin level is stable and improving. 5. Hypertension with hypertensive heart disease. Continue current dose of isosorbide, amlodipine and hydralazine. Blood pressures are significantly better with fluid removal. 6. Disposition. The patient is adamant that she wants to leave after dialysis today. I explained to her that she needs an outpatient dialysis placement. I have requested a Patient and Family Service (PFS) consult. She also needs a tunneled dialysis catheter for outpatient dialysis.
[2020-03-02 06:52] LABS: CALCIUM LEVEL 9.4 MG/DL (8.8-10.2); CREATININE FOR GFR 2.29 MG/DL (0.55-1.30); GLOMERULAR FILTRATION RATE 21.9 (>39); POTASSIUM SERUM 4.2 MEQ/L (3.5-5.1); VANCOMYCIN RANDOM 11.5 UG/ML
[2020-03-02] MEDS: ADVAIR HFA 230/21MCG INHALER INH SCH ×2 (07:26→19:20)
[2020-03-02] MEDS ORDERED: VANCOMYCIN HCL 500 MG in D5W MINI-BAG PLUS 100 ML IV ONE (08:00)
[2020-03-02] MEDS: HumaLOG INSULIN (NovoLOG) PER UNIT SC SCH ×4 (08:38→21:00)
[2020-03-02] MEDS: LEVEMIR (INSULIN DETEMIR) 1 UNITS/0.01ML SC SCH ×2 (08:38→20:48)
[2020-03-02] MEDS: PREGABALIN 75 MG CAP(LYRICA) PO SCH ×3 (09:00→20:48)
[2020-03-02] MEDS ORDERED: TRES1INJ2 SC (11:06)
--- NOTE | 2020-03-02 12:23 | REP ---
IR Permcath placement. IR Ultrasound of the right neck. IR Permcath insertion under fluoroscopy and ultrasound guidance. IR Moderate sedation. Clinical information: Renal failure. Needs dialysis. Physician: Dr. Olvera. Procedure: The patient was advised of the benefits, risks and alternatives of the procedure and informed consent was obtained. The time-out was performed with verification of the patient's name, MRN, site of procedure and type of procedure to be performed. The patient was positioned in the supine position on the angiographic table. The site was prepped and draped in the usual sterile fashion. Moderate sedation was performed by the physician including the presence of an independent trained observer that assisted in monitoring the patient's level of consciousness and physiologic status. Following the administration of fentanyl and Versed , the physician spent 45 minutes of continuous face to face time with the patient. Ultrasound of the right neck reveals a patent and compressible right internal jugular vein. A secretary of state radiograph reveals no gross abnormality. The neck and anterior chest wall were anesthetized with lidocaine. The right internal jugular vein was accessed under ultrasound guidance, using a micro introducer needle, via a lateral approach. An 018 cope wire was advanced into the inferior vena cava. Incision at the internal jugular access site and anterior chest wall were made using a scalpel. The needle was removed and the tract was serially dilated under fluoroscopy guidance. A peel away sheath was advanced over the wire under fluoroscopy guidance into the Superior vena cava. The catheter was inserted through the subcutaneous tissues of the chest wall with a tunneling device. The catheter was then advanced through the peel-away sheath under fluoroscopy guidance to the right atrium. The peel-away sheath was removed. The catheter was positioned with the tip at the cavoatrial junction. The puncture site was closed. The catheter was secured in place using 2-0 Prolene. Both sites were cleansed and sterile dressings applied. At the conclusion of the procedure, the ports of the catheter aspirate and flush freely. The catheter was locked with high-dose heparin. The patient tolerated the procedure well and was returned to the PRU in stable condition. EBL: < 5 ml. Complications: None. Conclusion: Successful placement of right sided Palindrome Permcath for dialysis. The catheter is ready for immediate use. Thank you this referral. Electronically Signed by Kylah Olvera MD 03/02/2020 12:22 P
[2020-03-02] MEDS: CALCITRIOL 0.25 MCG CAP (S0169) PO SCH (14:12)
[2020-03-02] MEDS: LACTOBACILLUS ACIDOPHILUS CAP (BACID) PO SCH ×2 (14:12→20:47)
[2020-03-02] MEDS: TORSEMIDE 20 MG TAB PO SCH ×2 (14:12→16:50)
[2020-03-02] MEDS: ASPIRIN 81 MG ENTERIC TAB PO SCH (14:12)
[2020-03-02] MEDS: PANTOPRAZOLE 40MG TAB (PROTONIX) PO SCH (14:13)
[2020-03-02] MEDS: ISOSORBIDE MON. (IMDUR) 30 MG XR TAB PO SCH (14:13)
[2020-03-02] MEDS: amLODIPine 5 MG TAB PO SCH ×2 (14:15→20:48)
--- NOTE | 2020-03-02 15:34 | IPNPDOC ---
Date Seen The patient was seen on 03/02/20. Progress Note SUBJECTIVE: The patient seen and examined at the bedside in dialysis this morning. She reports that her shortness of breath has improved. She was slated to go to the acute rehabilitation unit this morning, but according to EMR, patient is planned to go home with services once cleared by PT. Outpatient dialysis plans have been arranged. The patient has no other complaints this morning. PHYSICAL EXAMINATION: GENERAL APPEARANCE: Sitting at the bedside, appears stated age, no acute distress, calm, cooperative HEENT: EOMI, PERRLA, moist mucus membranes RESPIRATORY: Scattered rhonchi are appreciated bilaterally CARDIOVASCULAR: unable to determine JVD due to large neck, RRR, no murmurs/rubs/gallops, normal S1 and S2 ABDOMEN: +BS, soft, nontender to palpation in all four quadrants, no masses /organomegaly EXTREMITIES: Chronic venous stasis changes, 1+ pitting edema bilaterally NEUROLOGICAL: CN 2-12 intact, No obvious focal deficits PSYCHIATRIC: normal mood/affect Skin: No rashes or ulcers appreciated, warm and well-perfused LN: No significant cervical or inguinal lymphadenopathy ASSESSMENT AND PLAN: This is a 80-year-old female with history of COPD on 3 L oxygen at home who presented with shortness of breath, found to have COPD exacerbation and was initially started on IV steroids and antibiotics which had been de-escalated. The patient's hospital course was complicated by fluid overload and subsequent acute renal failure on CKD III and she is now undergoing hemodialysis for the forseeable future. PROBLEMS: 1. Acute renal failure on HD: -renal function today improving with dialysis -Nephrology consulted. HD today. -Continue Torsemide 40mg BID -No electrolyte abnormalities today -Continue Calcitriol -Diaper Folder consulted. Appreciate recommendations. -Continue Venofer for CHITRA 2. Acute hypoxic respiratory failure 2/2 COPD exacerbation vs fluid overload: -Steroids d/c'd 2/2 hyperglycemia -s/p moxifloxacin x 3 days -s/p Meropenem x2 doses, no signs of infection at this point. SOB determined to be more likely 2/2 fluid overload -Continue inhalers/neb treatments -BNP found to be 3866 -CXR more suggestive of pulmonary vascular congestion -Continue Chastity Wagner 3. Hyperglycemia: resolved. FSBS wnl over the weekend -Continue Levemir 40U BID -SSI with hypoglycemic protocol 4. HTN: BP within normal limits -Continue Amlodipine, Imdur 5. HLD: -Continue Crestor DVT ppx: SQH GI ppx: Protonix DISPO: Discharge home when declared safe by PT VS, I&O, 24H, Fishbone Vital Signs/I&O Vital Signs Date Time Temp Pulse Resp B/P (MAP) Pulse Ox O2 Delivery O2 Flow Rate FiO2 03/02/20 14:15 90 166/82 03/02/20 12:00 4.0 03/02/20 12:00 Nasal Cannula 03/02/20 08:00 97.9 18 94 03/01/20 12:35 40 I&O- Last 24 Hours up to 6 AM 03/02/20 06:00 Intake Total 840 ml Output Total 3400 ml Balance -2560 ml Laboratory Data 24H LABS Laboratory Tests 2 03/01/20 17:25: Bedside Glucose (Misc Panel) 188H 03/01/20 21:51: Bedside Glucose (Misc Panel) 166H 03/02/20 04:11: Methicillin-Resist S.aureus DNA PCR NOT DETECTED 03/02/20 06:08: Immature Granulocyte % (Auto) 5.0H, Neutrophils (%) (Auto) 59.3, Lymphocytes (%) (Auto) 17.3L, Monocytes (%) (Auto) 16.4H, Eosinophils (%) (Auto) 1.7, Basophils (%) (Auto) 0.3, Neutrophils # (Auto) 7.6, Lymphocytes # (Auto) 2.2, Monocytes # (Auto) 2.1H, Eosinophils # (Auto) 0.2, Basophils # (Auto) 0.0, Nucleated Red Blood Cells % (auto) 0.4H, Anion Gap 5L, Glomerular Filtration Rate 21.9L, Calcium Level 9.4, Random Vancomycin Level 11.5 03/02/20 12:32: Bedside Glucose (Misc Panel) 134H CBC/BMP Laboratory Tests 03/02/20 06:08 Microbiology Microbiology 02/21/20 Blood Culture - Final, Complete NO GROWTH AFTER 5 DAYS 02/21/20 Blood Culture - Final, Complete NO GROWTH AFTER 5 DAYS 02/21/20 Respiratory Virus Panel (PCR) (DANITA) - Final, Complete GME ATTESTATION GME ATTESTATION My faculty preceptor for this patient encounter was physically present during the encounter and was fully available. All aspects of the patient interview, examination, medical decision making process, and medical care plan development were reviewed and approved by the faculty preceptor. The faculty preceptor is aware and concurs with the plan as stated in the body of this note and will attest to such by his/her cosignature. HALEY SALAZAR MD March 02, 2020 15:34
[2020-03-02] MEDS: VANCOMYCIN HCL 1,000 MG, VIAL MATE ADAPTER 1 EACH in D5W 250 ML IV SCH (15:53)
[2020-03-02] MEDS: **VANCO AFTER HD** MISC XX SCH (15:54)
[2020-03-02] MEDS: ROSUVASTATIN 10 MG TAB (CRESTOR) PO SCH (20:47)
--- NOTE | 2020-03-02 21:17 | IPN ---
DATE: 03/02/2020 SUBJECTIVE: The patient was seen and examined at bedside today morning during hemodialysis procedure. She got a tunneled hemodialysis catheter placed in the right IJ yesterday. She is being dialyzed via the new catheter. She is tolerating the hemodialysis procedure well, and the patient is going to be transferred to the rehab unit now. OBJECTIVE: Vital signs: Temperature is 97.9 degrees Fahrenheit, blood pressure 142/76, pulse is 78, respiratory rate of 18, saturating 94% on nasal cannula at 4 liters. Intake and output: Urine output was 400 mL yesterday. She got 3 liters of ultrafiltration done yesterday. Weight in the bed scale was 104.7 kg yesterday. PHYSICAL EXAMINATION: General: The patient is awake, alert, oriented times three, morbidly obese and laying in the bed getting hemodialysis done. Head and neck exam: She is wearing a nasal cannula. Mucous membranes are moist. Neck is supple. She has a right IJ tunneled hemodialysis catheter being used for dialysis. Cardiovascular: S1, S2, regular rate. 1+ edema of the bilateral lower extremities. Respiratory: Mildly decreased breath sounds at the bases and with inspiratory crackles at the bases, otherwise no active rhonchi. Abdomen: Soft, obese, positive bowel sounds, nontender. Musculoskeletal: The patient has 1+ edema of the bilateral lower extremities. Central nervous system (BRAND STRATEGIST): She has no focal deficit, power is 5/5 in all extremities. LABORATORY REVIEW: CBC showed a WBC of 12.9, hemoglobin 8.9, platelets are 170. BMP showed sodium 133, potassium 4.2, chloride 100, bicarb 28, BUN 40, creatinine is 2.2. CURRENT INPATIENT MEDICATIONS: The patient's medications were all reviewed by myself. She continues to be on IV vancomycin. No other significant change in the medications today as compared with yesterday. ASSESSMENT/PLAN: 1. Acute renal failure superimposed on chronic kidney disease stage IV. The patient got a tunneled dialysis catheter yesterday. She is getting dialysis again today. From now on, she will continue three times a week dialysis Friday, , Friday. 2. Leukocytosis. The patient still has a catheter in the left groin, which will be removed after dialysis. She continues to be on vancomycin. I would give her at least two more doses of vancomycin with dialysis. 3. Acute decompensated diastolic congestive heart failure. Her volume status is significantly better with paws-be-kync dialysis. Continue current dose of torsemide 40 mg by mouth twice a day. 4. Iron deficiency anemia. Continue Venofer and Aranesp. Hemoglobin level is improving. 5. Hypertension with hypertensive heart disease. Continue hydralazine, amlodipine and isosorbide. If blood pressure get better, then isosorbide would be slowly removed. 6. Disposition. The patient is going to be transferred to rehab unit, and she is pending placement at outpatient dialysis.
[2020-03-03] MEDS: IPRATROPIUM 0.5MG/ALBUTEROL 2.5MG INH SOL UD 3ML (DUONEB)(J7620) NEB SCH ×6 (03:45→23:52)
[2020-03-03 06:00] VITALS: BP 139/71
[2020-03-03] MEDS: **hydrALAZINE HCL** 25 MG TAB PO SCH ×4 (06:07→23:25)
[2020-03-03] MEDS: SLF 3 ML SYR IV SCH ×3 (06:09→22:31)
[2020-03-03] MEDS: ADVAIR HFA 230/21MCG INHALER INH SCH ×2 (07:27→19:21)
[2020-03-03] MEDS: HumaLOG INSULIN (NovoLOG) PER UNIT SC SCH ×5 (07:30→22:00)
[2020-03-03] MEDS: LEVEMIR (INSULIN DETEMIR) 1 UNITS/0.01ML SC SCH ×2 (08:56→22:00)
[2020-03-03] MEDS: PREGABALIN 75 MG CAP(LYRICA) PO SCH ×3 (09:12→20:45)
[2020-03-03] MEDS: CALCITRIOL 0.25 MCG CAP (S0169) PO SCH (09:13)
[2020-03-03] MEDS: TORSEMIDE 20 MG TAB PO SCH ×2 (09:13→17:25)
[2020-03-03] MEDS: LACTOBACILLUS ACIDOPHILUS CAP (BACID) PO SCH ×2 (09:13→20:45)
[2020-03-03] MEDS: ISOSORBIDE MON. (IMDUR) 30 MG XR TAB PO SCH (09:13)
[2020-03-03] MEDS: PANTOPRAZOLE 40MG TAB (PROTONIX) PO SCH (09:13)
[2020-03-03] MEDS: amLODIPine 5 MG TAB PO SCH ×2 (09:14→20:49)
[2020-03-03] MEDS: ASPIRIN 81 MG ENTERIC TAB PO SCH (09:14)
--- NOTE | 2020-03-03 11:43 | DS.PDOC ---
Discharge Summary General Date of Admission February 21, 2020 at 17:39 Date of Discharge February Primary Care Physician: Tejas Clifton Attending Physician: SCOTT NASSAR MD Specialist/Consultants Involve: SWETA MORRISON MD Discharge Summary PROCEDURES PERFORMED DURING STAY: [None]. ADMITTING DIAGNOSES: 1. Acute COPD exacerbation 2. Chronic hypoxic respiratory failure 3. CKD IV DISCHARGE DIAGNOSES: 1. ARF on CKD III requiring HD 2. Chronic hypoxic respiratory failure 3. COPD COMPLICATIONS/CHIEF COMPLAINT: Copd Exacerbation. HISTORY OF PRESENT ILLNESS: This is a 80-year-old DO NOT RESUSCITATE, DO NOT INTUBATE. Medical Orders for Life-Sustaining Treatment (MOLST) form has been signed, female who presents to the emergency room with a 1-week history of worsening shortness of breath despite using nebulizer every 6 hours four times daily. She had no fever, was 98 degrees at home, had one episode of nausea but has been having increase in phlegm production and sputum production with clear sputum but thick. Patient said she had one loose stool. No headaches, changes in vision or abdominal pain. She was due to see Dr. Gomez in the office, but due to worsening shortness of breath and complaints of chills, she was encouraged to come to the emergency room (ER) for admission. Patient has not had any sick contacts. No recent travel. Chest x-ray showed no pneumonia. She is chronically on two liters of oxygen and was not hypoxic on arriving. She was 97 to 99% on three liters of oxygen. Denies any weight gain, weight loss. Has chronic lower extremity edema. Did have some paroxysmal nocturnal dyspnea and 2-3 pillow orthopnea. BNP level was 460 and at baseline creatinine of 1.9. Hospitalist was called to admit for chronic obstructive pulmonary disease (COPD) exacerbation. HOSPITAL COURSE: The patient was admitted with diagnosis of acute hypoxic respiratory failure 2/2 COPD exacerbation. She was started on empiric moxifloxacin and steroids with improvement of her oxygenation. She did have right lower leg pain concerning for DVT. Doppler ultrasound was ordered and was negative. Her hospitalization was then complicated by persistent hyperglycemia requiring transfer from medical/surgical floor to ICU for insulin drip. Once her glucose was stabilized she was transferred to progressive care unit where she was found to have worsening renal function. Nephrology was consulted and the patient was sent back to the ICU for initiation of dialysis and BiPAP. The patient's hypoxemia improved, her renal function was stable and she was started on dialysis 3 times weekly. She was discharged home with planned to undergo dialysis regularly on Tuesdays, and Saturdays. She is also to follow- up with her primary care doctor within 7 days. DISCHARGE MEDICATIONS: Please see below. ALLERGIES: Please see below. PHYSICAL EXAMINATION ON DISCHARGE: VITAL SIGNS: Please see below. GENERAL APPEARANCE: Sitting at the bedside, appears stated age, no acute distress, calm, cooperative HEENT: EOMI, PERRLA, moist mucus membranes RESPIRATORY: faint crackles appreciated at the bases bilaterally CARDIOVASCULAR: unable to determine JVD due to large neck, RRR, no murmurs/rubs/gallops, normal S1 and S2 ABDOMEN: +BS, soft, nontender to palpation in all four quadrants, no masses/organomegaly EXTREMITIES: Chronic venous stasis changes, 1+ pitting edema bilaterally NEUROLOGICAL: CN 2-12 intact, No obvious focal deficits PSYCHIATRIC: normal mood/affect Skin: No rashes or ulcers appreciated, warm and well-perfused LN: No significant cervical or inguinal lymphadenopathy LABORATORY DATA: Please see below. IMAGING: CT CHEST: IMPRESSION: 1. No CT findings to suggest pneumonia. 2. 10 mm solid pulmonary nodule in the left lung apex, which has developed since the prior CT chest on 03/26/2019 and other pulmonary nodules as described above, which are stable compared to the prior CT chest on 03/26/2019. See management guidelines below. 3. 10 mm enlarged right lower paratracheal lymph node, which is stable compared to the prior CT chest on 03/26/2019. VASC US: Right lower extremity Duplex Doppler venous ultrasound: Real time compression and duplex Doppler interrogation of the right lower extremity deep venous system is performed. The right common femoral, superficial femoral and popliteal veins are fully compressible with transducer pressure and demonstrate normal spontaneous and phasic flow, without evidence of deep venous thrombosis. Impression: No evidence of deep venous thrombosis of the right lower extremity femoral popliteal venous system. PROGNOSIS: Fair ACTIVITY: [As tolerated]. DIET: Renal DISCHARGE PLAN: Home DISPOSITION: . DISCHARGE INSTRUCTIONS: 1. Continue hemodialysis Friday, , Friday ITEMS TO FOLLOWUP ON ON OUTPATIENT: None DISCHARGE CONDITION: [Stable]. TIME SPENT ON DISCHARGE: Greater than 35 minutes. Vital Signs/I&Os Vital Signs Date Time Temp Pulse Resp B/P (MAP) Pulse Ox O2 Delivery O2 Flow Rate FiO2 03/02/20 12:00 4.0 03/02/20 08:00 97.9 78 18 142/76 (98) 94 Nasal Cannula 03/01/20 12:35 40 I&O- Last 24 Hours up to 6 AM 03/02/20 06:00 Intake Total 840 ml Output Total 3400 ml Balance -2560 ml Laboratory Data Labs 24H Laboratory Tests 2 03/01/20 17:25: Bedside Glucose (Misc Panel) 188H 03/01/20 21:51: Bedside Glucose (Misc Panel) 166H 03/02/20 04:11: Methicillin-Resist S.aureus DNA PCR NOT DETECTED 03/02/20 06:08: Immature Granulocyte % (Auto) 5.0H, Neutrophils (%) (Auto) 59.3, Lymphocytes (%) (Auto) 17.3L, Monocytes (%) (Auto) 16.4H, Eosinophils (%) (Auto) 1.7, Basophils (%) (Auto) 0.3, Neutrophils # (Auto) 7.6, Lymphocytes # (Auto) 2.2, Monocytes # (Auto) 2.1H, Eosinophils # (Auto) 0.2, Basophils # (Auto) 0.0, Nucleated Red Blood Cells % (auto) 0.4H, Anion Gap 5L, Glomerular Filtration Rate 21.9L, Calcium Level 9.4, Random Vancomycin Level 11.5 03/02/20 12:32: Bedside Glucose (Misc Panel) 134H CBC/BMP Laboratory Tests 03/02/20 06:08 FSBS Laboratory Tests Test 03/01/20 17:25 03/01/20 21:51 03/02/20 12:32 Range/Units Bedside Glucose (Misc Panel) 188 166 134 83-110 MG/DL Microbiology Microbiology 02/21/20 Blood Culture - Final, Complete NO GROWTH AFTER 5 DAYS 02/21/20 Blood Culture - Final, Complete NO GROWTH AFTER 5 DAYS 02/21/20 Respiratory Virus Panel (PCR) (DANITA) - Final, Complete Discharge Medications Scheduled Allopurinol (Allopurinol) 100 Mg Tab, 100 MG PO DAILY, (Reported) Amlodipine Besylate (Amlodipine Besylate) 5 Mg Tablet, 5 MG PO BID, (Reported) Aspirin (Aspir 81) 81 Mg Tab, 81 MG PO DAILY, (Reported) Calcitriol (Rocaltrol) 0.25 Mcg Capsule, 0.25 MCG PO DAILY, (Reported) Ergocalciferol (Vitamin D2) (Vitamin D2) 50,000 Units Cap, 1 CAP PO QWEEK, (Reported) takes wednesdays Hydralazine HCl (Hydralazine HCl) 25 Mg Tablet, 25 MG PO Q6H, (Reported) Insulin Degludec (Tresiba Flextouch U-100) 100 Unit/1 Ml Insuln.pen, 40 UNIT SC BID Insulin Human Lispro (Humalog) 100 Unit/1 Ml Vial, 0 SC ACHS, (Reported) 101-150 2units, 151-200 4 untis, 201-250 6 units, 251-300 8 units, 301-350 10 units, 351-400 12 units, >400 14 units, >500 go to ED Ipratropium/Albuterol Sulfate (Iprat-Albut 0.5-3(2.5) mg/3 ml) 3 Ml Ampul.neb, 3 M NEB Q8H, (Reported) Isosorbide Mononitrate (Isosorbide Mononitrate ER) 30 Mg Tab, 30 MG PO DAILY, (Reported) Ketoconazole (Ketoconazole) 15 Gm Cream..g., 1 APLCT TOP DAILY, (Reported) apply to both feet L.acidoph/L.bulg/B.bif/S.therm (Daniela-Bid Caplet) 1 Each Tablet, 1 TAB PO DAILY, (Reported) Nystatin (Nyamyc) 15 Gm Powder, 1 APPLIC TOP BID, (Reported) UNDER BREASTS AND ABDOMINAL FOLDS Pantoprazole Sodium (Pantoprazole Sodium) 40 Mg Tablet.dr, 40 MG PO DAILY, (Reported) Pregabalin (Lyrica) 75 Mg Capsule, 75 MG PO TID, (Reported) Rosuvastatin Calcium (Crestor) 20 Mg Tab, 20 MG PO QHS, (Reported) Sucralfate (Carafate) 1 Gm Tablet, 1 GM PO QID, (Reported) Torsemide (Torsemide) 20 Mg Tablet, 40 MG PO BID, (Reported) take at 9 am and 5 pm Scheduled PRN Albuterol Sulfate (Albuterol Sulfate) 2.5 Mg/0.5 Ml Neb, 2.5 MG INH Q4H PRN for SHORTNESS OF BREATH, (Reported) Hydrocodone/Acetaminophen (Hydrocodone-Acetamin 10-325 mg) 1 Each Tablet, 1 TAB PO Q6HP PRN for PAIN, (Reported) Nitroglycerin (Nitroglycerin) 0.4 Mg Sub, 0.4 MG SL NITRO PRN for CHEST PAIN, (Reported) Allergies Coded Allergies: lisinopril (Verified Allergy, Severe, angioedema lip, 02/21/20) angioedema lip latex (Verified Allergy, Intermediate, RASH/ITCHING, 02/21/20) codeine (Verified Adverse Reaction, Mild, HEADACHE, 02/21/20) oxycodone (Verified Adverse Reaction, Mild, CONFUSION, 02/21/20) GME ATTESTATION GME ATTESTATION My faculty preceptor for this patient encounter was physically present during the encounter and was fully available. All aspects of the patient interview, examination, medical decision making process, and medical care plan development were reviewed and approved by the faculty preceptor. The faculty preceptor is aware and concurs with the plan as stated in the body of this note and will attest to such by his/her cosignature. HALEY SALAZAR MD March 02, 2020 13:24
[2020-03-03 14:00] VITALS: BP 136/78
[2020-03-03] MEDS: **VANCO AFTER HD** MISC XX SCH (16:00)
[2020-03-03] MEDS: traMADol 50 MG TAB PO PRN (20:45)
[2020-03-03] MEDS: ROSUVASTATIN 10 MG TAB (CRESTOR) PO SCH (20:45)
[2020-03-03 22:00] VITALS: BP 121/59
[2020-03-04] MEDS: IPRATROPIUM 0.5MG/ALBUTEROL 2.5MG INH SOL UD 3ML (DUONEB)(J7620) NEB SCH ×4 (04:14→16:00)
[2020-03-04 06:31] VITALS: BP 121/51
[2020-03-04] MEDS: ISOSORBIDE MON. (IMDUR) 30 MG XR TAB PO SCH (06:31)
[2020-03-04] MEDS: LACTOBACILLUS ACIDOPHILUS CAP (BACID) PO SCH (06:31)
[2020-03-04] MEDS: PREGABALIN 75 MG CAP(LYRICA) PO SCH ×2 (06:32→16:39)
[2020-03-04] MEDS: amLODIPine 5 MG TAB PO SCH (06:32)
[2020-03-04] MEDS: TORSEMIDE 20 MG TAB PO SCH ×2 (06:32→16:39)
[2020-03-04] MEDS: CALCITRIOL 0.25 MCG CAP (S0169) PO SCH (06:32)
[2020-03-04] MEDS: PANTOPRAZOLE 40MG TAB (PROTONIX) PO SCH (06:32)
[2020-03-04] MEDS: ASPIRIN 81 MG ENTERIC TAB PO SCH (06:32)
[2020-03-04] MEDS: **hydrALAZINE HCL** 25 MG TAB PO SCH ×2 (06:32→12:00)
[2020-03-04 07:20] VITALS: BP 121/51
[2020-03-04] MEDS: ADVAIR HFA 230/21MCG INHALER INH SCH (08:00)
[2020-03-04 08:30] LABS: HEMATOCRIT 27.3 % (36.0-47.0); HEMOGLOBIN 8.5 g/dl (12.0-15.5); MEAN CORPUSCULAR HEMOGLOBIN 29.1 pg (27.0-33.0); MEAN CORPUSCULAR HGB CONC 31.1 g/dl (32.0-36.5); MEAN CORPUSCULAR VOLUME 93.5 fl (80.0-96.0); PLATELET COUNT, AUTOMATED 132 10^3/uL (150-450); RED BLOOD COUNT 2.92 10^6/uL (4.00-5.40); WHITE BLOOD COUNT 15.9 10^3/uL (4.0-10.0)
[2020-03-04 09:01] LABS: CALCIUM LEVEL 9.1 MG/DL (8.8-10.2); CREATININE FOR GFR 2.36 MG/DL (0.55-1.30); GLOMERULAR FILTRATION RATE 21.1 (>39); POTASSIUM SERUM 3.8 MEQ/L (3.5-5.1)
[2020-03-04] MEDS: HumaLOG INSULIN (NovoLOG) PER UNIT SC SCH ×2 (09:02→12:35)
[2020-03-04] MEDS: LEVEMIR (INSULIN DETEMIR) 1 UNITS/0.01ML SC SCH (09:02)
--- NOTE | 2020-03-04 13:41 | DS.PDOC ---
Discharge Summary General Date of Admission February 21, 2020 at 17:39 Date of Discharge March 04, 2020 Primary Care Physician: Tejas Clifton Attending Physician: SCOTT NASSAR MD Specialist/Consultants Involve: SWETA MORRISON MD Discharge Summary PROCEDURES PERFORMED DURING STAY: [None]. ADMITTING DIAGNOSES: 1. Acute COPD exacerbation 2. Chronic hypoxic respiratory failure 3. CKD IV DISCHARGE DIAGNOSES: 1. ARF on CKD III requiring HD 2. Chronic hypoxic respiratory failure 3. COPD COMPLICATIONS/CHIEF COMPLAINT: Copd Exacerbation. HISTORY OF PRESENT ILLNESS: This is a 80-year-old DO NOT RESUSCITATE, DO NOT INTUBATE. Medical Orders for Life-Sustaining Treatment (MOLST) form has been signed, female who presents to the emergency room with a 1-week history of worsening shortness of breath despite using nebulizer every 6 hours four times daily. She had no fever, was 98 degrees at home, had one episode of nausea but has been having increase in phlegm production and sputum production with clear sputum but thick. Patient said she had one loose stool. No headaches, changes in vision or abdominal pain. She was due to see Dr. Gomez in the office, but due to worsening shortness of breath and complaints of chills, she was encouraged to come to the emergency room (ER) for admission. Patient has not had any sick contacts. No recent travel. Chest x-ray showed no pneumonia. She is chronically on two liters of oxygen and was not hypoxic on arriving. She was 97 to 99% on three liters of oxygen. Denies any weight gain, weight loss. Has chronic lower extremity edema. Did have some paroxysmal nocturnal dyspnea and 2-3 pillow orthopnea. BNP level was 460 and at baseline creatinine of 1.9. Hospitalist was called to admit for chronic obstructive pulmonary disease (COPD) exacerbation. HOSPITAL COURSE: The patient was admitted with diagnosis of acute hypoxic respiratory failure 2/2 COPD exacerbation. She was started on empiric moxifloxacin and steroids with improvement of her oxygenation. She did have right lower leg pain concerning for DVT. Doppler ultrasound was ordered and was negative. Her hospitalization was then complicated by persistent hyperglycemia requiring transfer from medical/surgical floor to ICU for insulin drip. Once her glucose was stabilized she was transferred to progressive care unit where she was found to have worsening renal function. Nephrology was consulted and the patient was sent back to the ICU for initiation of dialysis and BiPAP. The patient's hypoxemia improved, her renal function was stable and she was started on dialysis 3 times weekly. She was discharged home with planned to undergo dialysis regularly on Tuesdays, and Saturdays. She is also to follow- up with her primary care doctor within 7 days. DISCHARGE MEDICATIONS: Please see below. ALLERGIES: Please see below. PHYSICAL EXAMINATION ON DISCHARGE: VITAL SIGNS: Please see below. GENERAL APPEARANCE: Sitting at the bedside, appears stated age, no acute distress, calm, cooperative HEENT: EOMI, PERRLA, moist mucus membranes RESPIRATORY: faint crackles appreciated at the bases bilaterally CARDIOVASCULAR: unable to determine JVD due to large neck, RRR, no murmurs/rubs/gallops, normal S1 and S2 ABDOMEN: +BS, soft, nontender to palpation in all four quadrants, no masses/organomegaly EXTREMITIES: Chronic venous stasis changes, 1+ pitting edema bilaterally NEUROLOGICAL: CN 2-12 intact, No obvious focal deficits PSYCHIATRIC: normal mood/affect Skin: No rashes or ulcers appreciated, warm and well-perfused LN: No significant cervical or inguinal lymphadenopathy LABORATORY DATA: Please see below. IMAGING: CT CHEST: IMPRESSION: 1. No CT findings to suggest pneumonia. 2. 10 mm solid pulmonary nodule in the left lung apex, which has developed since the prior CT chest on 03/26/2019 and other pulmonary nodules as described above, which are stable compared to the prior CT chest on 03/26/2019. See management guidelines below. 3. 10 mm enlarged right lower paratracheal lymph node, which is stable compared to the prior CT chest on 03/26/2019. VASC US: Right lower extremity Duplex Doppler venous ultrasound: Real time compression and duplex Doppler interrogation of the right lower extremity deep venous system is performed. The right common femoral, superficial femoral and popliteal veins are fully compressible with transducer pressure and demonstrate normal spontaneous and phasic flow, without evidence of deep venous thrombosis. Impression: No evidence of deep venous thrombosis of the right lower extremity femoral popliteal venous system. PROGNOSIS: Fair ACTIVITY: [As tolerated]. DIET: Renal DISCHARGE PLAN: Home DISPOSITION: . DISCHARGE INSTRUCTIONS: 1. Continue hemodialysis Friday, , Friday ITEMS TO FOLLOWUP ON ON OUTPATIENT: None DISCHARGE CONDITION: [Stable]. TIME SPENT ON DISCHARGE: Greater than 35 minutes. Vital Signs/I&Os Vital Signs Date Time Temp Pulse Resp B/P (MAP) Pulse Ox O2 Delivery O2 Flow Rate FiO2 03/04/20 09:00 3.0 03/04/20 07:20 96.9 76 20 121/51 (74) 96 Nasal Cannula 03/01/20 12:35 40 I&O- Last 24 Hours up to 6 AM 03/04/20 06:00 Intake Total 1570 ml Output Total 1000 ml Balance 570 ml Laboratory Data Labs 24H Laboratory Tests 2 03/03/20 16:41: Bedside Glucose (Misc Panel) 210H 03/03/20 21:08: Bedside Glucose (Misc Panel) 378H 03/04/20 05:53: Bedside Glucose (Misc Panel) 165H 03/04/20 08:18: Nucleated Red Blood Cells % (auto) 0.4H, Anion Gap 9, Glomerular Filtration Rate 21.1L, Calcium Level 9.1 03/04/20 11:51: Bedside Glucose (Misc Panel) 176H CBC/BMP Laboratory Tests 03/04/20 08:18 FSBS Laboratory Tests Test 03/03/20 16:41 03/03/20 21:08 03/04/20 05:53 03/04/20 11:51 Range/Units Bedside Glucose (Misc Panel) 210 378 165 176 83-110 MG/DL Discharge Medications Scheduled Allopurinol (Allopurinol) 100 Mg Tab, 100 MG PO DAILY, (Reported) Amlodipine Besylate (Amlodipine Besylate) 5 Mg Tablet, 5 MG PO BID, (Reported) Aspirin (Aspir 81) 81 Mg Tab, 81 MG PO DAILY, (Reported) Calcitriol (Rocaltrol) 0.25 Mcg Capsule, 0.25 MCG PO DAILY, (Reported) Ergocalciferol (Vitamin D2) (Vitamin D2) 50,000 Units Cap, 1 CAP PO QWEEK, (Reported) takes wednesdays Hydralazine HCl (Hydralazine HCl) 25 Mg Tablet, 25 MG PO Q6H, (Reported) Insulin Degludec (Tresiba Flextouch U-100) 100 Unit/1 Ml Insuln.pen, 40 UNIT SC BID Insulin Human Lispro (Humalog) 100 Unit/1 Ml Vial, 0 SC ACHS, (Reported) 101-150 2units, 151-200 4 untis, 201-250 6 units, 251-300 8 units, 301-350 10 units, 351-400 12 units, >400 14 units, >500 go to ED Ipratropium/Albuterol Sulfate (Iprat-Albut 0.5-3(2.5) mg/3 ml) 3 Ml Ampul.neb, 3 M NEB Q8H, (Reported) Isosorbide Mononitrate (Isosorbide Mononitrate ER) 30 Mg Tab, 30 MG PO DAILY, (Reported) Ketoconazole (Ketoconazole) 15 Gm Cream..g., 1 APLCT TOP DAILY, (Reported) apply to both feet L.acidoph/L.bulg/B.bif/S.therm (Daniela-Bid Caplet) 1 Each Tablet, 1 TAB PO DAILY, (Reported) Nystatin (Nyamyc) 15 Gm Powder, 1 APPLIC TOP BID, (Reported) UNDER BREASTS AND ABDOMINAL FOLDS Pantoprazole Sodium (Pantoprazole Sodium) 40 Mg Tablet.dr, 40 MG PO DAILY, (Rep orted) Pregabalin (Lyrica) 75 Mg Capsule, 75 MG PO TID, (Reported) Rosuvastatin Calcium (Crestor) 20 Mg Tab, 20 MG PO QHS, (Reported) Sucralfate (Carafate) 1 Gm Tablet, 1 GM PO QID, (Reported) Torsemide (Torsemide) 20 Mg Tablet, 40 MG PO BID, (Reported) take at 9 am and 5 pm Scheduled PRN Albuterol Sulfate (Albuterol Sulfate) 2.5 Mg/0.5 Ml Neb, 2.5 MG INH Q4H PRN for SHORTNESS OF BREATH, (Reported) Hydrocodone/Acetaminophen (Hydrocodone-Acetamin 10-325 mg) 1 Each Tablet, 1 TAB PO Q6HP PRN for PAIN, (Reported) Nitroglycerin (Nitroglycerin) 0.4 Mg Sub, 0.4 MG SL NITRO PRN for CHEST PAIN, (Reported) Allergies Coded Allergies: lisinopril (Verified Allergy, Severe, angioedema lip, 02/21/20) angioedema lip latex (Verified Allergy, Intermediate, RASH/ITCHING, 02/21/20) codeine (Verified Adverse Reaction, Mild, HEADACHE, 02/21/20) oxycodone (Verified Adverse Reaction, Mild, CONFUSION, 02/21/20) GME ATTESTATION GME ATTESTATION My faculty preceptor for this patient encounter was physically present during the encounter and was fully available. All aspects of the patient interview, examination, medical decision making process, and medical care plan development were reviewed and approved by the faculty preceptor. The faculty preceptor is aware and concurs with the plan as stated in the body of this note and will attest to such by his/her cosignature. HALEY SALAZAR MD March 04, 2020 13:41
--- NOTE | 2020-03-04 14:42 | IPN ---
DATE: 03/03/2020 SUBJECTIVE: The patient was seen and examined the bedside today morning. She reports that her shortness of breath is significantly better. She is adamant that she wants to leave and go home today. Otherwise, she will sign out against medical advice. She was dialyzed yesterday. There was 3 liters of fluid removed. Outpatient dialysis is being set up today. OBJECTIVE: Vital signs: Temperature is 98.2 degrees Fahrenheit, blood pressure 120/65, pulse is 83, respiratory rate of 18, saturating 93% on nasal cannula at 4 liters. Intake and output: Urine output recorded is 400 mL. Ultrafiltration with hemodialysis was 3 liters. Weight in the bed scale is 99.3 kg. PHYSICAL EXAMINATION: GENERAL: The patient is awake, alert, oriented times three, lying in bed, morbidly obese. HEAD AND NECK: Extraocular muscles intact. Pupils equally round and reactive to light. Mucous membranes are moist. She is wearing nasal cannula. Neck is supple. She has a right internal jugular (IJ) tunneled hemodialysis catheter. CARDIOVASCULAR: S1, S2, regular rate. Edema 1+ of the bilateral lower extremities. RESPIRATORY: Mildly decreased breath sounds at the bases, otherwise no active rales or rhonchi. ABDOMEN: Soft, obese, positive bowel sounds. MUSCULOSKELETAL: Edema 1+ of the lower extremities. CENTRAL NERVOUS SYSTEM: No focal deficit. Power is 5/5 in all extremities. LABORATORY REVIEW: CBC from yesterday showed WBC 12.9, hemoglobin 8.9 BMP is also from yesterday. CURRENT INPATIENT MEDICATIONS: The patient's medications were all reviewed by myself. She continues to be on intravenous (IV) vancomycin. Last dose was on March 06. No other significant change in the medications today as compared with yesterday. ASSESSMENT AND PLAN: 1. Acute renal failure superimposed on chronic kidney disease, stage IV. The patient got bahb-fy-rath dialysis and ultrafiltration for the last 3 days. Volume status is significantly better. 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 She has a right IJ catheter. Outpatient dialysis center was called, and she is going to be started on dialysis tomorrow morning as outpatient. 2. Leukocytosis. The patient is getting vancomycin. Left femoral catheter has been removed. Cultures are negative. 3. Acute decompensated diastolic congestive heart failure. Continue current dose of torsemide 40 mg by mouth twice a day on discharge. Rest of the volume management will be done as outpatient with dialysis. 4. Iron deficiency anemia. Continue Aranesp and Venofer. Rest of the anemia management as per anemia protocol at dialysis center. 5. Hypertension with hypertensive heart disease. Continue amlodipine, isosorbide, and hydralazine. DISPOSITION: Patient is optimized from nephrology standpoint to be discharged home.
[2020-03-04] MEDS: **VANCO AFTER HD** MISC XX SCH (16:00)
--- NOTE | 2020-03-06 07:20 | IPN ---
DATE: 03/04/2020 Ms. Falcon was seen and examined this morning, lying comfortably on her right side on the bed. She states she has no complaints. She really just would like to go home, and she is kind of sad that she did not get her dialysis session this morning but understands she will be getting it later this afternoon, then she can be discharged afterward. She has no complaints. She has noticed her shortness of breath that precipitated her to come to the emergency room (ER) has resolved completely, and she understands she needs to be compliant with dialysis. She endorses that her aide will be taking her to her dialysis sessions, which are currently scheduled for Tuesdays, , and Saturdays. She has no other complaints today with the exception of initially voicing that she would be leaving against medical advice (AMA) earlier this morning. PHYSICAL EXAMINATION: VITAL SIGNS: Temperature 96.9, pulse 76, respirations 20, blood pressure 121/51, mean arterial pressure (MAP) of 71, pulse oximetry 96% on 3 liters of nasal cannula. INTAKE AND OUTPUT: Intake total 1570 mL, output total 800 mL with a balance of +770 mL. No bowel movements yesterday. Her weight today was 101.5 kg and will be going to dialysis later today to remove at least 3 liters. GENERAL: This is a very pleasant 80-year-old morbidly obese female, lying comfortably on the bed on her right side. Alert and oriented times three. HEENT: Atraumatic, normocephalic. Pupils equal, round, and reactive. Large neck girth. Right internal jugular (IJ) tunneled hemodialysis catheter in place. Nasal cannula in place as well. Does not appear in acute distress. CARDIOVASCULAR: S1, S2 sounds are regular. Bilateral 1+ pitting edema in the lower extremities. RESPIRATORY: Diminished breath sounds at the bases. No obvious rhonchi or rales appreciated. ABDOMEN: Morbidly obese abdomen. Positive bowel sounds in all four quadrants. NEUROLOGIC: No focal deficits noted. LABORATORIES: Hematology: WBC 15.9, hemoglobin 8.5, hematocrit 27.3, platelets 132. Sodium 135, potassium 3.8, chloride 99, carbon dioxide 27, anion gap 9, BUN 43, creatinine 2.36, fasting glucose 208, calcium 9.1. No new imaging. ASSESSMENT AND PLAN: 1. Acute renal failure superimposed on chronic kidney disease stage IV. At this current time, she appears to be dialysis dependent. She tolerated [id number] dialysis very well with ultrafiltration, and she currently has a right IJ catheter in place. After her last dialysis session this afternoon, she can be discharged and followup outpatient for dialysis on 03/07/2020. Her schedule is Friday, , and Friday. 2. Leukocytosis. She was getting vancomycin, and her left femoral catheter was removed. Blood cultures have been negative. She has gotten adequate antibiotic coverage while inpatient. She will be following up outpatient at dialysis. She is not complaining of any sepsis-like symptoms. She currently appears stable. 3. Acute decompensated diastolic congestive heart failure. Continue with her torsemide 40 mg twice a day, and the remaining of her volume status will be managed by dialysis. If any adjustments will be needed for the torsemide, it will be done at the nephrology clinic. 4. Iron deficiency anemia. Continue with the Epi and Masoud outpatient. The remaining of the anemia management will be per the dialysis center protocol. 5. Hypertension with hypertensive heart disease. Continue with amlodipine, isosorbide, and hydralazine as scheduled. MTDD
== END 2020-03-04 17:21 | disposition home or self-care (01) | DRG 190 ==
LOC: M ED 15:07 → EDBD 15:07 → M ED INP 17:39 → ENRESERV 18:34 → M MSPAV 18:47 → M ICU 02-24 01:22 → M PCU 02-25 06:10 → M ICU 02-26 12:12 → M PCU 02-28 12:51 → M MSPAV 03-02 15:31
PROVIDERS: ADMIT General Practice; ATTEND Internal Medicine
PROC: 0JH63XZ Insertion of Tunneled Vascular Access Device into Chest Subcutaneous Tissue and Fascia, Percutaneous Approach (ICD-10-PCS; principal; 2020-02-26)
PROC: 5A1D70Z Performance of Urinary Filtration, Intermittent, Less than 6 Hours Per Day (ICD-10-PCS; 2020-02-26)
PROC: 02HV33Z Insertion of Infusion Device into Superior Vena Cava, Percutaneous Approach (ICD-10-PCS; 2020-02-26)
DX: J44.1 Chronic obstructive pulmonary disease with (acute) exacerbation (principal); N17.0 Acute kidney failure with tubular necrosis; J96.21 Acute and chronic respiratory failure with hypoxia; I50.33 Acute on chronic diastolic (congestive) heart failure; N18.4 Chronic kidney disease, stage 4 (severe); Z68.41 Body mass index [BMI] 40.0-44.9, adult; N25.81 Secondary hyperparathyroidism of renal origin; E87.1 Hypo-osmolality and hyponatremia; I13.0 Hypertensive heart and chronic kidney disease with heart failure and stage 1 through stage 4 chronic kidney disease, or unspecified chronic kidney disease; E66.01 Morbid (severe) obesity due to excess calories; E11.65 Type 2 diabetes mellitus with hyperglycemia; Z66 Do not resuscitate; Z79.899 Other long term (current) drug therapy; Z79.82 Long term (current) use of aspirin; Z79.4 Long term (current) use of insulin; Z88.8 Allergy status to other drugs, medicaments and biological substances; Z88.5 Allergy status to narcotic agent; Z91.040 Latex allergy status; F17.210 Nicotine dependence, cigarettes, uncomplicated; G47.33 Obstructive sleep apnea (adult) (pediatric); K21.9 Gastro-esophageal reflux disease without esophagitis; E87.5 Hyperkalemia; D63.1 Anemia in chronic kidney disease; D50.9 Iron deficiency anemia, unspecified

== ENCOUNTER 2020-03-11 08:21 | Emergency (ER) | payer MEDICARE ==
[~2020-03-11] VITALS: Ht 157.5 cm; Wt 101.1 kg
[~2020-03-11 08:21] MED LIST changes: +CEPH500C PO; +HYDR-4517 PO; +VITA50005 PO
[2020-03-11] MEDS ORDERED: IPRATROPIUM 0.5MG/ALBUTEROL 2.5MG INH SOL UD 3ML (DUONEB) NEB ONE (08:45)
[2020-03-11 09:01] LABS: BASO % 0.2 % (0.0-1.0); EOS # 0.1 10^3/uL (0.0-0.5); EOS % 1.2 % (0.0-3.0); HEMATOCRIT 29.1 % (36.0-47.0); HEMOGLOBIN 8.3 g/dl (12.0-15.5); LYMPH % 21.7 % (24.0-44.0); MEAN CORPUSCULAR HEMOGLOBIN 28.5 pg (27.0-33.0); MEAN CORPUSCULAR HGB CONC 28.5 g/dl (32.0-36.5); MONO # 1.5 10^3/uL (0.0-0.8); MONO % 15.8 % (0.0-5.0); NEUTROPHILS # 5.5 10^3/uL (1.5-8.5); NEUTROPHILS % 59.6 % (36.0-66.0); PLATELET COUNT, AUTOMATED 139 10^3/uL (150-450); RED BLOOD COUNT 2.91 10^6/uL (4.00-5.40); WHITE BLOOD COUNT 9.3 10^3/uL (4.0-10.0)
[2020-03-11 09:20] LABS: INR 1.15; PROTHROMBIN TIME 14.4 SECONDS (11.8-14.0)
[2020-03-11 09:22] LABS: PARTIAL THROMBOPLASTIN TIME 93.9 SECONDS (25.0-38.4)
[2020-03-11] MEDS ORDERED: MIDAZOLAM INJ 2MG/2ML VIAL (J2250 PER 1MG) As Ordered ONE (10:28)
[2020-03-11] MEDS ORDERED: LIDOCAINE W/EPINEPHRINE 1% 20ML VIAL As Ordered ONE ×2 (10:28→11:28)
[2020-03-11] MEDS ORDERED: fentaNYL 100 MCG/2 ML INJECTION (J3010) As Ordered ONE (10:28)
[2020-03-11] MEDS ORDERED: ceFAZolin 1GM VIAL (J0690 PER 500MG) As Ordered ONE (10:33)
--- NOTE | 2020-03-11 10:41 | CR.PDOC ---
General Date of Consultation: Mar 11, 2020 Consultation REASON FOR CONSULTATION/CHIEF COMPLAINT: Bleeding around PermCath at dialysis today HISTORY OF PRESENT ILLNESS: This is very pleasant 80-year-old patient who had a right IJ PermCath placement with Dr. Olvera for dialysis for renal insufficiency, and went to dialysis today and had acute profound bleeding around her catheter while running on dialysis. The treatment was stopped, and the patient was sent urgently to the emergency room. I was consulted by Dr. Toro to place a new PermCath and remove the existing PermCath. I discussed with the patient the risks benefits and alternatives to PermCath removal and new PermCath placement and she is agreeable to proceed. Informed consent was obtained. ALLERGIES: Please see below. HOME MEDICATIONS: Please see below. PAST MEDICAL HISTORY: Renal failure, heart disease, congestive heart failure, COPD, obesity, diabetes, GERD PAST SURGICAL HISTORY: Open repair right clavicle, FAMILY HISTORY: Heart disease, diabetes SOCIAL HISTORY: Denies tobacco, alcohol or illicit drug use. Has an aide that helps her at home. REVIEW OF SYSTEMS: CONSTITUTIONAL: Positive fatigue HEENT: Denies acute hearing or vision changes. CARDIOVASCULAR: Denies palpitations or recent chest pain RESPIRATORY: Positive shortness of breath GENITOURINARY: Denies dysuria MUSCULOSKELETAL: Positive back pain, denies claudication GASTROINTESTINAL: Denies nausea vomiting. Positive constipation and GERD SKIN: Denies rashes NEUROLOGICAL: Denies stroke or TIA symptoms denies headache or seizures PSYCHIATRIC: Positive anxiety ENDOCRINE: Positive diabetes HEMATOLOGIC/LYMPHATIC: Positive easy bruising ALLERGIC/IMMUNOLOGIC: Denies PHYSICAL EXAMINATION: VITAL SIGNS: Please see below. GENERAL APPEARANCE: Medically stable HEENT: Vision and hearing grossly intact RESPIRATORY: Appears to have some increased work of breathing and audible wheezing, breath sounds slightly diminished bibasilar CARDIOVASCULAR: Regular rate and rhythm ABDOMEN: Soft obese nontender EXTREMITIES: Distal perfusion intact NEUROLOGICAL: Alert and oriented 3, moves all extremities equally PSYCHIATRIC: Pleasant and cooperative but nervous about further procedures LABORATORY DATA: Please see below. ASSESSMENT/PLAN: Very pleasant 80-year-old patient with renal failure and significant bleeding around her right IJ catheter with dialysis requiring exchange. 1. Plan for removal right IJ PermCath in the ER, and placement of a new PermCath and IR. 2. Further plans for admission and/or dialysis following PermCath placement will be per our outpatient phlebotomist Dr. Toro. We appreciate the opportunity to participate in the care of this patient. Vital Signs/I&O Vital Signs Date Time Temp Pulse Resp B/P (MAP) Pulse Ox O2 Delivery O2 Flow Rate FiO2 03/11/20 08:37 97.2 75 20 110/55 (73) 95 Nasal Cannula 3.0 Laboratory Data Labs 24H Laboratory Tests 2 03/11/20 08:41: Immature Granulocyte % (Auto) 1.5, Neutrophils (%) (Auto) 59.6, Lymphocytes (%) (Auto) 21.7L, Monocytes (%) (Auto) 15.8H, Eosinophils (%) (Auto) 1.2, Basophils (%) (Auto) 0.2, Neutrophils # (Auto) 5.5, Lymphocytes # (Auto) 2.0, Monocytes # (Auto) 1.5H, Eosinophils # (Auto) 0.1, Basophils # (Auto) 0.0, Nucleated Red B lood Cells % (auto) 0.2H, Prothrombin Time 14.4H, Prothromb Time International Ratio 1.15, Activated Partial Thromboplast Time 93.9H 03/11/20 08:52: POC Glucose (Misc Panel) 121H, POC Sodium (Misc Panel) 134L, POC Potassium (Misc Panel) 4.9, POC Chloride (Misc Panel) 98, POC Total CO2 (Misc Panel) 26.0, POC Blood Urea Nitrogen (Misc Panel 40H, POC Ionized Calcium (Misc Panel) 4.6, POC Creatinine (Misc Panel) 3.9H, POC Hematocrit (Misc Panel) 28.0L CBC/BMP Laboratory Tests 03/11/20 08:41 Allergies Coded Allergies: lisinopril (Verified Allergy, Severe, angioedema lip, 02/21/20) angioedema lip latex (Verified Allergy, Intermediate, RASH/ITCHING, 02/21/20) codeine (Verified Adverse Reaction, Mild, HEADACHE, 02/21/20) oxycodone (Verified Adverse Reaction, Mild, CONFUSION, 02/21/20) Home Medications Scheduled Allopurinol (Allopurinol) 100 Mg Tab, 100 MG PO DAILY, (Reported) Amlodipine Besylate (Amlodipine Besylate) 5 Mg Tablet, 5 MG PO BID, (Reported) Aspirin (Aspir 81) 81 Mg Tab, 81 MG PO DAILY, (Reported) Calcitriol (Rocaltrol) 0.25 Mcg Capsule, 0.25 MCG PO DAILY, (Reported) Ergocalciferol (Vitamin D2) (Vitamin D2) 50,000 Units Cap, 1 CAP PO QWEEK, (Reported) takes wednesdays Hydralazine HCl (Hydralazine HCl) 25 Mg Tablet, 25 MG PO Q6H, (Reported) Insulin Degludec (Tresiba Flextouch U-100) 100 Unit/1 Ml Insuln.pen, 40 UNIT SC BID for 30 Days, #100 Insulin Human Lispro (Humalog) 100 Unit/1 Ml Vial, 0 SC ACHS, (Reported) 101-150 2units, 151-200 4 untis, 201-250 6 units, 251-300 8 units, 301-350 10 units, 351-400 12 units, >400 14 units, >500 go to ED Ipratropium/Albuterol Sulfate (Iprat-Albut 0.5-3(2.5) mg/3 ml) 3 Ml Ampul.neb, 3 M NEB Q8H, (Reported) Isosorbide Mononitrate (Isosorbide Mononitrate ER) 30 Mg Tab, 30 MG PO DAILY, (Reported) Ketoconazole (Ketoconazole) 15 Gm Cream..g., 1 APLCT TOP DAILY, (Reported) apply to both feet L.acidoph/L.bulg/B.bif/S.therm (Daniela-Bid Caplet) 1 Each Tablet, 1 TAB PO DAILY, (Reported) Nystatin (Nyamyc) 15 Gm Powder, 1 APPLIC TOP BID, (Reported) UNDER BREASTS AND ABDOMINAL FOLDS Pantoprazole Sodium (Pantoprazole Sodium) 40 Mg Tablet.dr, 40 MG PO DAILY, (Reported) Pregabalin (Lyrica) 75 Mg Capsule, 75 MG PO TID, (Reported) Rosuvastatin Calcium (Crestor) 20 Mg Tab, 20 MG PO QHS, (Reported) Sucralfate (Carafate) 1 Gm Tablet, 1 GM PO QID, (Reported) Torsemide (Torsemide) 20 Mg Tablet, 40 MG PO BID, (Reported) take at 9 am and 5 pm Scheduled PRN Albuterol Sulfate (Albuterol Sulfate) 2.5 Mg/0.5 Ml Neb, 2.5 MG INH Q4H PRN for SHORTNESS OF BREATH, (Reported) Hydrocodone/Acetaminophen (Hydrocodone-Acetamin 10-325 mg) 1 Each Tablet, 1 TAB PO Q6HP PRN for PAIN, (Reported) Nitroglycerin (Nitroglycerin) 0.4 Mg Sub, 0.4 MG SL NITRO PRN for CHEST PAIN, (Reported) EMMETT ROSARIO MD Mar 11, 2020 10:41
--- NOTE | 2020-03-11 10:44 | ROOPDOC ---
[facility] Report Of Operation Report of Operation DATE OF PROCEDURE: 03/11/20 PREPROCEDURE DIAGNOSES: Significant bleeding around right IJ PermCath with dialysis POSTPROCEDURE DIAGNOSES: Same PROCEDURE: Removal right IJ PermCath SURGEON: Emmett Torres MD ANESTHESIA: None INDICATION FOR PROCEDURE: This is a very pleasant 80-year-old patient who had placement of a right IJ PermCath for renal failure and dialysis access with Dr. Olvera a week ago, and today at dialysis the patient had significant bleeding around her catheter with dialysis. They urgently stop the procedure and sent her to the emergency room. I was counseled to by Dr. Toro to remove the PermCath and place a new access. Risks benefits and alternatives were explained to patient she was agreeable to proceed. Informed consent was obtained. REPORT OF OPERATION: The patient's right neck and chest including the PermCath were prepped and draped in a sterile fashion. A timeout was performed. The sutures holding the PermCath in place were removed. Pressure was held at the jugular access site and the catheter was removed and discarded. Before discarded, the catheter was examined and found to be completely intact including the tips and the cuff, and no portion was left behind. Pressure was held for 20 minutes for good hemostasis and sterile dressings were applied. The patient tolerated the procedure well. ESTIMATED BLOOD LOSS: Approximately 5 mL. COMPLICATIONS: None. PLAN: We plan to monitor the patient in the ER postprocedure and then she will be transferred to interventional radiology for new PermCath placement this morning. Dialysis following PermCath placement will be per Dr. Toro. We appreciate the opportunity to participate in the care of this patient. EMMETT TORRES MD Mar 11, 2020 10:44
--- NOTE | 2020-03-11 12:04 | ROOPDOC ---
[facility] Report Of Operation Report of Operation DATE OF PROCEDURE: 03/11/20 PREPROCEDURE DIAGNOSES: Renal failure requiring new access for dialysis POSTPROCEDURE DIAGNOSES: Same PROCEDURE: 1. Ultrasound-guided access right internal jugular vein 2. Placement of a 23 cm tunneled dual-lumen PermCath SURGEON: Emmett Torres MD ANESTHESIA: Local anesthesia 23 mL lidocaine with epinephrine. Moderate intravenous conscious sedation was supervised by Dr. Torres. The patient was independently monitored by registered nurse assigned to the Department of radiology using automated blood pressure, EKG, and pulse oximetry. The detailed sedation record is permanently stored in the hospital information system. The following this a brief sedation record: Start time 11:20, stop time 11:48, Versed 1.5 mg IV, fentanyl 25 g IV, Ancef 2 g IV. INDICATION FOR PROCEDURE: This is a very pleasant 80-year-old patient who had a PermCath placed by Dr. Olvera for dialysis access a week ago, and developed acute significant bleeding at dialysis today and was sent urgently to the emergency room. I was consulted today for replacement of her dialysis access. I have already removed her PermCath in the emergency room without complication. We now bring the patient to place a new PermCath. Risks benefits and alternatives were explained and she is agreeable to proceed. Informed consent was obtained. INTERPRETATION: 1. PermCath is in good position in the right internal jugular vein with the tips frequently mobile in the right atrial SVC junction. There are no kinks in the catheter. There is no pneumothorax. It is okay to use the PermCath for dialysis. REPORT OF OPERATION: The patient was brought to the angiographic suite in stable condition. Her right neck and chest were prepped and draped in a sterile fashion. A timeout was performed. Sedation was administered without complication. Local anesthesia was administer to the skin and subcutaneous tissue over the right chest and right neck. A microneedle was used to access the right jugular vein under ultrasound guidance. A wire was passed through this access into the central system under fluoroscopic guidance. The needle was removed and a micro-sheath was placed and a J-wire was advanced into the central system under fluoroscopic guidance. A small incision was made at the jugular access site and at the right chest just distal to the clavicle. A 23 cm PermCath was tunneled from the right chest to the jugular access site until the cuff was within the subcutaneous tissue. We then performed 2 serial dilations over the wire using a Seldinger technique and a peel-away sheath was then placed over the wire into the central system under fluoroscopic guidance. The wire and inner cannula were removed in the tips of the catheter were advanced through the peel- away sheath into the central system under fluoroscopic guidance. The peel-away sheath was removed. Both ports trent back and flushed easily and were heparin locked. Appropriate caps were placed. The incisions were irrigated with saline. The jugular access site was closed with deep and superficial interrupted Monocryl sutures and Dermabond was placed at the skin. The exit site on the right chest was closed with 2 interrupted Prolene sutures and the catheter was secured to the chest wall with additional Prolene sutures. Sterile dressings were applied. The previous catheter sites were dressed with Steri-Strips and dry dressings. The patient tolerated the procedure and the sedation well. ESTIMATED BLOOD LOSS: Approximately 10 mL. COMPLICATIONS: None. PLAN: It is okay to use the catheter for dialysis. Orders for diet, medications, and dialysis per Dr. Toro in the hospitalist team. It is okay from a vascular standpoint to resume all medications and diet. We appreciate the opportunity to participate in the care of this patient. EMMETT TORRES MD Mar 11, 2020 12:04
[2020-03-11] MEDS ORDERED: TRES1INJ2 SC (13:03)
[2020-03-11 13:45] VITALS: BP 118/58
--- NOTE | 2020-03-11 19:15 | ECGEPIP ---
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
--- NOTE | 2020-03-13 10:18 | REP ---
REASON FOR EXAM: Dyspnea. COMPARISON: Multiple, the latest 02/25/2020. The technique utilized in obtaining the radiograph has magnified the cardiac silhouette and accentuated the interstitial markings. A right-sided central venous catheter is seen, the tip of which is in the superior vena cava. There are bibasilar opacities which appear slightly improved. No new opacities have developed. There is mild cardiomegaly accentuated by technique. The interstitial markings are generally increased, status quo. There is no significant change in the osseous structures. IMPRESSION: There has been some improvement in the bibasilar opacities. There is evidence of interstitial edema, status quo. Other findings as described above. Electronically Signed by Hayes Renteria DO 03/13/2020 10:57 A
== END 2020-03-11 14:20 | disposition home or self-care (01) ==
LOC: EDBD 08:21 → M ED 08:21
DX: T82.838A Hemorrhage due to vascular prosthetic devices, implants and grafts, initial encounter (principal); N18.6 End stage renal disease; E11.22 Type 2 diabetes mellitus with diabetic chronic kidney disease; I50.9 Heart failure, unspecified; I51.9 Heart disease, unspecified; J44.9 Chronic obstructive pulmonary disease, unspecified; E66.9 Obesity, unspecified; K21.9 Gastro-esophageal reflux disease without esophagitis; X58.XXXA Exposure to other specified factors, initial encounter; Y92.9 Unspecified place or not applicable; Y93.9 Activity, unspecified; Y99.9 Unspecified external cause status
CPT/HCPCS: 36415; 36558; 36589; 71045; 80047; 85025; 85610; 85730; 86850; 86900; 86901; 93005; 94640; 99152; 99153; 99285; C1750; C1894; J0690; J1644; J2250; J3010

== ENCOUNTER 2020-03-25 11:33 | Emergency (ER) | payer MEDICARE | END 2020-03-25 12:17 | disposition left against medical advice (07) | LOC: M ED 11:33 | DX: N18.6 End stage renal disease (principal); E11.9 Type 2 diabetes mellitus without complications; J44.9 Chronic obstructive pulmonary disease, unspecified; E66.9 Obesity, unspecified; E78.5 Hyperlipidemia, unspecified; Z91.19 Patient's noncompliance with other medical treatment and regimen; I50.9 Heart failure, unspecified; I25.10 Atherosclerotic heart disease of native coronary artery without angina pectoris; Z88.5 Allergy status to narcotic agent; Z91.040 Latex allergy status; Z88.8 Allergy status to other drugs, medicaments and biological substances; Z88.6 Allergy status to analgesic agent; Z79.899 Other long term (current) drug therapy ==

== ENCOUNTER 2020-03-31 15:01 | Emergency (ER) | payer MEDICARE ==
[~2020-03-31] VITALS: Ht 157.5 cm; Wt 92.7 kg
[~2020-03-31 15:01] MED LIST changes: +AMLO1TAB24 PO; -AMLO5TAB6 PO; -ASPI81TA85 PO; +ASPI81TA86 PO; -PANT20TA2 PO; +PANT20TA6 PO; +PANT40TA29 PO; -PANT40TA3 PO
[2020-03-31] MEDS ORDERED: IPRATROPIUM 0.5MG/ALBUTEROL 2.5MG INH SOL UD 3ML (DUONEB) NEB ONE (16:15)
[2020-03-31 16:40] LABS: VENOUS BASE EXCESS 1.1 (-2.0-2.0); VENOUS HCO3 29.3 MEQ/L (23.0-27.0); VENOUS O2 SATURATION 86.4 % (60.0-80.0); VENOUS PARTIAL PRESSURE CO2 65.7 mmHg (38.0-50.0); VENOUS PARTIAL PRESSURE O2 54.1 mmHg (30.0-50.0); VENOUS PH 7.267 UNITS (7.330-7.430); VENOUS STANDARD HCO3 25.2 MEQ/L; VENOUS TOTAL CO2 31.3 MEQ/L (24.0-28.0)
[2020-03-31 16:54] LABS: BASO % 0.1 % (0.0-1.0); EOS # 0.1 10^3/uL (0.0-0.5); EOS % 1.9 % (0.0-3.0); HEMATOCRIT 36.4 % (36.0-47.0); HEMOGLOBIN 10.6 g/dl (12.0-15.5); LYMPH # 1.5 10^3/uL (1.5-5.0); LYMPH % 21.5 % (24.0-44.0); MEAN CORPUSCULAR HEMOGLOBIN 29.4 pg (27.0-33.0); MEAN CORPUSCULAR HGB CONC 29.1 g/dl (32.0-36.5); MEAN CORPUSCULAR VOLUME 100.8 fl (80.0-96.0); MONO # 0.7 10^3/uL (0.0-0.8); MONO % 10.2 % (0.0-5.0); NEUTROPHILS # 4.5 10^3/uL (1.5-8.5); NEUTROPHILS % 65.3 % (36.0-66.0); PLATELET COUNT, AUTOMATED 179 10^3/uL (150-450); RED BLOOD COUNT 3.61 10^6/uL (4.00-5.40); WHITE BLOOD COUNT 6.9 10^3/uL (4.0-10.0)
[2020-03-31 17:16] LABS: ALBUMIN 3.1 GM/DL (3.2-5.2); ALT/SGPT 11 U/L (12-78); BILIRUBIN,DIRECT < 0.1 MG/DL (0.0-0.2); BILIRUBIN,TOTAL 0.2 MG/DL (0.2-1.0); BLOOD UREA NITROGEN 40 MG/DL (7-18); CALCIUM LEVEL 8.8 MG/DL (8.8-10.2); CARBON DIOXIDE LEVEL 29 MEQ/L (21-32); CHLORIDE LEVEL 106 MEQ/L (98-107); CK-MB VALUE MASS 1.3 NG/ML (<3.6); CPK CREATINE PHOSPHOKINASE 49 U/L (26-192); CREATININE FOR GFR 2.71 MG/DL (0.55-1.30); GLUCOSE, FASTING 127 MG/DL (70-100); MB/CK RELATIVE INDEX 2.65 (< OR =4); POTASSIUM SERUM 5.3 MEQ/L (3.5-5.1); SODIUM LEVEL 139 MEQ/L (136-145); TOTAL PROTEIN 6.2 GM/DL (6.4-8.2); TROPONIN I < 0.02 NG/ML (< 0.10)
[2020-03-31 17:30] VITALS: BP 154/66
--- NOTE | 2020-03-31 20:56 | ECGEPIP ---
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
--- NOTE | 2020-04-01 09:09 | REP ---
CHEST SINGLE VIEW: Single view of the chest is performed and compared to a prior study of 03/11/2020. Previously noted bibasilar opacities have improved with mild residual, right greater than left. There is cardiomegaly. There is calcification of the thoracic aorta. Mediastinal silhouette appears unchanged. Right central venous catheter is seen with the tip in the superior vena cava. Electronically Signed by Hossein Larson MD 04/10/2020 11:28 A
== END 2020-03-31 18:04 | disposition home or self-care (01) ==
LOC: M ED 15:01 → EDBD 15:01 → M ED 18:04
DX: J44.1 Chronic obstructive pulmonary disease with (acute) exacerbation (principal); N18.6 End stage renal disease; I51.7 Cardiomegaly; I70.0 Atherosclerosis of aorta; Z95.828 Presence of other vascular implants and grafts; I51.9 Heart disease, unspecified; E11.9 Type 2 diabetes mellitus without complications; I10 Essential (primary) hypertension; Z72.0 Tobacco use; Z79.82 Long term (current) use of aspirin; Z79.4 Long term (current) use of insulin; Z79.899 Other long term (current) drug therapy; Z88.5 Allergy status to narcotic agent; Z88.8 Allergy status to other drugs, medicaments and biological substances; Z91.040 Latex allergy status

== ENCOUNTER → 2020-04-12 | Outpatient (CLI) | payer MEDICARE ==
[~2020-04-12] MED LIST changes: +LIDOCAINE 1% MDV 20ML VIAL As Ordered ONE
[2020-04-12 15:40] VITALS: BP 146/69
--- NOTE | 2020-04-12 16:14 | POST-OPPD ---
Postoperative Procedure Note Date Of Procedure: Apr 12, 2020 Time Of Procedure: 16:13 PREOPERATIVE DIAGNOSIS: RF. right sided PermCath. no further dialysis. POSTOPERATIVE DIAGNOSIS: same FINDINGS: right sided permcath PROCEDURE:The PermCath site was prepped and draped in the usual sterile fashion. Lidocaine was used for local anesthesia. The catheter cuff was dissected out of the soft tissues using blunt dissection. The catheter was removed in it's entirety. Patient tolerated the procedure well, hemostasis achieved and a sterile dressing was applied to the site. This is the entire report of procedure. SURGEON: Wade ANESTHESIA: local ESTIMATED BLOOD LOSS: < 5 ml COMPLICATIONS: none POSTOPERATIVE CONDITION: stable NICOLA WOODS MD Apr 12, 2020 16:14
== END ==
LOC: M IRPRO 14:25
PROVIDERS: ATTEND Radiology Diagnostic Radiology
DX: Z45.2 Encounter for adjustment and management of vascular access device (principal); N18.6 End stage renal disease

== ENCOUNTER 2020-07-23 15:01 | Emergency (ER) | payer MEDICARE ==
[~2020-07-23 15:01] MED LIST changes: -LIDOCAINE 1% MDV 20ML VIAL As Ordered ONE
[2020-07-23 15:23] VITALS: BP 137/63
== END 2020-07-23 15:18 | disposition left against medical advice (07) ==
LOC: M ED 15:01 → EDBD 15:01 → EDUNIT# 15:01 → M ED 15:18
DX: Z53.9 Procedure and treatment not carried out, unspecified reason (principal); I48.91 Unspecified atrial fibrillation; I50.9 Heart failure, unspecified; E11.9 Type 2 diabetes mellitus without complications; I10 Essential (primary) hypertension; G47.33 Obstructive sleep apnea (adult) (pediatric); E66.9 Obesity, unspecified; J44.9 Chronic obstructive pulmonary disease, unspecified; F17.200 Nicotine dependence, unspecified, uncomplicated; Z79.82 Long term (current) use of aspirin; Z79.4 Long term (current) use of insulin; Z79.899 Other long term (current) drug therapy; Z88.5 Allergy status to narcotic agent; Z88.8 Allergy status to other drugs, medicaments and biological substances; Z91.040 Latex allergy status

== ENCOUNTER 2020-12-31 21:28 | Emergency (ER) | payer MEDICARE ==
[~2020-12-31] VITALS: Ht 152.4 cm; Wt 91.4 kg
[~2020-12-31 21:28] MED LIST changes: +ASPI-569 PO; -ASPI81TAEC PO; +ISOS1TAB35 PO; -ISOS30TA4 PO; -LISI-538 PO; +LISI20TA33 PO; -LISI40TA PO; +LISI40TA4 PO
[2020-12-31] MEDS ORDERED: methylPREDNISolone 125MG 2ML VIAL IV ONE (21:50)
[2020-12-31] MEDS ORDERED: AZITHROMYCIN 250MG TABLET PO ONE (21:50)
[2020-12-31] MEDS ORDERED: IPRATROPIUM 0.5MG/ALBUTEROL 2.5MG INH SOL UD 3ML (DUONEB) NEB PRN (21:50)
[2020-12-31 22:08] LABS: BASO % 0.4 % (0.0-1.0); EOS # 0.2 10^3/uL (0.0-0.5); EOS % 2.3 % (0.0-3.0); HEMATOCRIT 45.9 % (36.0-47.0); HEMOGLOBIN 14.4 g/dl (12.0-15.5); LYMPH # 1.4 10^3/uL (1.5-5.0); LYMPH % 18.6 % (24.0-44.0); MEAN CORPUSCULAR HEMOGLOBIN 31.4 pg (27.0-33.0); MEAN CORPUSCULAR HGB CONC 31.4 g/dl (32.0-36.5); MEAN CORPUSCULAR VOLUME 100.2 fl (80.0-96.0); MONO % 13.1 % (2.0-8.0); NEUTROPHILS # 4.9 10^3/uL (1.5-8.5); NEUTROPHILS % 63.9 % (36.0-66.0); PLATELET COUNT, AUTOMATED 175 10^3/uL (150-450); RED BLOOD COUNT 4.58 10^6/uL (4.00-5.40); WHITE BLOOD COUNT 7.7 10^3/uL (4.0-10.0)
[2020-12-31 22:44] LABS: RSV AMPLIFICATION NEGATIVE (NEGATIVE)
[2020-12-31 22:48] LABS: ALBUMIN 3.6 GM/DL (3.2-5.2); ALT/SGPT 13 U/L (12-78); BILIRUBIN,DIRECT < 0.1 MG/DL (0.0-0.2); BILIRUBIN,TOTAL 0.1 MG/DL (0.2-1.0); BLOOD UREA NITROGEN 36 MG/DL (7-18); CALCIUM LEVEL 9.7 MG/DL (8.8-10.2); CARBON DIOXIDE LEVEL 33 MEQ/L (21-32); CHLORIDE LEVEL 100 MEQ/L (98-107); CK-MB VALUE MASS < 1.0 NG/ML (<3.6); CPK CREATINE PHOSPHOKINASE 52 U/L (26-192); CREATININE FOR GFR 1.86 MG/DL (0.55-1.30); GLOMERULAR FILTRATION RATE 27.8 (>39); GLUCOSE, FASTING 199 MG/DL (70-100); MB/CK RELATIVE INDEX 1.92 (< OR =4); NT-PRO BNP 1038 PG/ML (<450); POTASSIUM SERUM 4.4 MEQ/L (3.5-5.1); SODIUM LEVEL 137 MEQ/L (136-145); TOTAL PROTEIN 6.9 GM/DL (6.4-8.2); TROPONIN I < 0.02 NG/ML (< 0.10)
[2020-12-31] MEDS ORDERED: AZIT-12 PO (23:19)
[2020-12-31] MEDS ORDERED: PRED20TA PO (23:19)
--- NOTE | 2020-12-31 23:24 | REPVR ---
PROCEDURE INFORMATION: Exam: XR Chest Exam date and time: 12/31/2020 10:48 PM Age: 80 years old Clinical indication: Cough and dyspnea TECHNIQUE: Imaging protocol: XR of the chest Views: 1 view. COMPARISON: CR PORTABLE CHEST X-RAY 03/31/2020 4:18 PM FINDINGS: Lungs: There is increased pulmonary vascularity and bibasilar atelectasis. No lung consolidation is noted. Pleural spaces: Unremarkable. No pleural effusion. No pneumothorax. Heart/Mediastinum: Unremarkable. No cardiomegaly. Vasculature: There are atherosclerotic calcifications of the aortic arch. Bones/joints: There is a calcific density in the right rotator cuff, which is compatible with calcific right rotator cuff tendinitis. IMPRESSION: 1. Increased pulmonary vascularity and bibasilar atelectasis. No radiographic evidence for pneumonia. 2. Calcific right rotator cuff tendinitis. Electronically signed by: Pieter Chan On 12/31/2020 23:24:00 PM
[2021-01-01 00:05] VITALS: BP 178/70
--- NOTE | 2021-01-01 19:56 | ECGEPIP ---
[facility] - ED Test Date: 2020-12-31 Pat Name: BRIGID JAEGER Department: Room: - Gender: Female Ditch Rider: ROXANA : 1940 Requested By: John Lorenz Order Number: [id number] Reading MD: Saranya Mcpherson Measurements Intervals Stella Rate: 72 P: -27 NE: 170 QRS: 47 QRSD: 74 T: 101 QT: 406 QTc: 444 Interpretive Statements Normal sinus rhythm Nonspecific T wave abnormality similar 03/31/20 Electronically Signed on 01-01-2021 19:55:49 EDT by Saranya Mcpherson
== END 2021-01-01 00:05 | disposition home or self-care (01) ==
LOC: M ED 21:28
DX: J44.1 Chronic obstructive pulmonary disease with (acute) exacerbation (principal); M75.31 Calcific tendinitis of right shoulder; I25.10 Atherosclerotic heart disease of native coronary artery without angina pectoris; E11.9 Type 2 diabetes mellitus without complications; I10 Essential (primary) hypertension; J45.909 Unspecified asthma, uncomplicated; N18.9 Chronic kidney disease, unspecified; Z99.81 Dependence on supplemental oxygen; F17.200 Nicotine dependence, unspecified, uncomplicated; Z79.82 Long term (current) use of aspirin; Z79.4 Long term (current) use of insulin; Z79.899 Other long term (current) drug therapy; Z88.5 Allergy status to narcotic agent; Z88.8 Allergy status to other drugs, medicaments and biological substances; Z91.040 Latex allergy status
CPT/HCPCS: 71045; 80048; 80076; 82550; 82553; 83880; 84484; 85025; 87631; 93005; 93041; 94760; 96374; 99284; J2930

== ENCOUNTER → 2021-01-24 | Outpatient (CLI) | payer MEDICARE ==
[~2021-01-24] MED LIST changes: +AZIT-12 PO; -SIME180C PO; +SIME180C25 PO
[2021-01-24 18:05] LABS: BASO % 0.4 % (0.0-1.0); EOS # 0.2 10^3/uL (0.0-0.5); HEMATOCRIT 48.3 % (36.0-47.0); HEMOGLOBIN 15.1 g/dl (12.0-15.5); LYMPH # 2.1 10^3/uL (1.5-5.0); LYMPH % 24.8 % (24.0-44.0); MEAN CORPUSCULAR HEMOGLOBIN 32.1 pg (27.0-33.0); MEAN CORPUSCULAR HGB CONC 31.3 g/dl (32.0-36.5); MEAN CORPUSCULAR VOLUME 102.5 fl (80.0-96.0); MONO # 1.2 10^3/uL (0.0-0.8); MONO % 14.6 % (2.0-8.0); NEUTROPHILS # 4.8 10^3/uL (1.5-8.5); NEUTROPHILS % 57.2 % (36.0-66.0); PLATELET COUNT, AUTOMATED 219 10^3/uL (150-450); RED BLOOD COUNT 4.71 10^6/uL (4.00-5.40); WHITE BLOOD COUNT 8.3 10^3/uL (4.0-10.0)
[2021-01-24 18:41] LABS: ALBUMIN 3.4 GM/DL (3.2-5.2); BILIRUBIN,TOTAL 0.2 MG/DL (0.2-1.0); CALCIUM LEVEL 10.1 MG/DL (8.8-10.2); CREATININE FOR GFR 1.98 MG/DL (0.55-1.30); FREE T4 0.98 NG/DL (0.76-1.46); GLOMERULAR FILTRATION RATE 25.9 (>39); POTASSIUM SERUM 4.3 MEQ/L (3.5-5.1); THYROID STIMULATING HORMONE 1.2 uIU/ML (0.358-3.740); TOTAL PROTEIN 6.7 GM/DL (6.4-8.2)
== END ==
LOC: M PLALAB 15:00
PROVIDERS: ATTEND Physician Assistant
DX: R53.83 Other fatigue (principal); E11.40 Type 2 diabetes mellitus with diabetic neuropathy, unspecified

== ENCOUNTER 2021-03-11 15:42 | Inpatient (IN) | payer MEDICARE ==
[~2021-03-11] VITALS: Ht 154.9 cm; Wt 87.6 kg
[~2021-03-11 15:42] MED LIST changes: +NICOTINE 21MG/24HR 1 EA TRANSDERMAL TD SCH
[2021-03-11] MEDS ORDERED: IPRATROPIUM 0.5MG/ALBUTEROL 2.5MG INH SOL UD 3ML (DUONEB) NEB ONE (16:35)
--- NOTE | 2021-03-11 16:40 | REP ---
INDICATION: DYSPNEA/COUGH COMPARISON: 01/01/2020, 02/25/2020 TECHNIQUE: Portable AP view of the chest FINDINGS: The mediastinum and cardiac silhouette are stable and within normal limits for portable technique. The lung chau demonstrate chronic changes without acute consolidation, effusion, or pneumothorax. Skeletal structures are intact. IMPRESSION: No acute cardiopulmonary process appreciated. <Electronically signed by Rommel Hogan > 03/11/21 [id number]
[2021-03-11] MEDS ORDERED: ALBUTEROL SULFATE 2.5 MG/0.5 ML INH NEB SOLN INH ONE (16:45)
[2021-03-11 17:13] LABS: BASO % 0.3 % (0.0-1.0); EOS # 0.1 10^3/uL (0.0-0.5); EOS % 0.8 % (0.0-3.0); HEMATOCRIT 44.4 % (36.0-47.0); HEMOGLOBIN 14.4 g/dl (12.0-15.5); LYMPH # 0.8 10^3/uL (1.5-5.0); LYMPH % 9.8 % (24.0-44.0); MEAN CORPUSCULAR HEMOGLOBIN 32.6 pg (27.0-33.0); MEAN CORPUSCULAR HGB CONC 32.4 g/dl (32.0-36.5); MEAN CORPUSCULAR VOLUME 100.5 fl (80.0-96.0); MONO # 0.6 10^3/uL (0.0-0.8); MONO % 6.9 % (2.0-8.0); NEUTROPHILS # 6.5 10^3/uL (1.5-8.5); NEUTROPHILS % 81.2 % (36.0-66.0); PLATELET COUNT, AUTOMATED 179 10^3/uL (150-450); RED BLOOD COUNT 4.42 10^6/uL (4.00-5.40)
[2021-03-11 17:49] LABS: ALBUMIN 3.5 GM/DL (3.2-5.2); ALT/SGPT 11 U/L (12-78); BILIRUBIN,DIRECT 0.1 MG/DL (0.0-0.2); BILIRUBIN,TOTAL 0.4 MG/DL (0.2-1.0); BLOOD UREA NITROGEN 34 MG/DL (7-18); CALCIUM LEVEL 9.1 MG/DL (8.8-10.2); CARBON DIOXIDE LEVEL 35 MEQ/L (21-32); CHLORIDE LEVEL 99 MEQ/L (98-107); CK-MB VALUE MASS < 1.0 NG/ML (<3.6); CPK CREATINE PHOSPHOKINASE 64 U/L (26-192); GLOMERULAR FILTRATION RATE 27.1 (>32); GLUCOSE, FASTING 242 MG/DL (70-100); MB/CK RELATIVE INDEX 1.56 (< OR =4); NT-PRO BNP 262 PG/ML (<450); POTASSIUM SERUM 4.1 MEQ/L (3.5-5.1); SODIUM LEVEL 138 MEQ/L (136-145); TOTAL PROTEIN 6.7 GM/DL (6.4-8.2); TROPONIN I < 0.02 NG/ML (< 0.10)
[2021-03-11 18:45] LABS: MAGNESIUM LEVEL 1.7 MG/DL (1.8-2.4)
[2021-03-11] MEDS ORDERED: TRAM100T18 PO (18:56)
[2021-03-11] MEDS ORDERED: BASA100I SC (18:56)
[2021-03-11] MEDS ORDERED: TRAM50TA2 PO (18:56)
[2021-03-11] MEDS ORDERED: TAMS1CAP17 PO (18:56)
[2021-03-11] MEDS ORDERED: ATIV1TAB10 PO (18:56)
[2021-03-11] MEDS ORDERED: ASPI81TA26 PO (18:56)
--- NOTE | 2021-03-11 19:33 | HPEPDOC ---
General Date of Admission 03/11/21 Date of Service: Mar 11, 2021 Chief Complaint The patient is a 81-year-old female admitted with a reason for visit of Short Of Breath. Source: Patient, RN/MD, EMS notes reviewed Timing/Duration: Unsure Severity: Moderate Associated Symptoms: Cough, Loss of appetite, Malaise, Shortness of breath, Weakness, Dizziness History of Present Illness Ms. Falcon is a 81 year-old elderly female with significant PMH of CHF, CKD stage 3, Insulin Dependent Diabetes Mellitus, CODP on supplemental oxygen of 3L nasal cannula at home, currently pack a day cigarette smoker, Atrial fibrillati on and has history of leaving hospital AMA, presents to [facility] ER via ambulance with oxygen saturation low 80s, after EMS administered 3 rounds of epinephrine along with a dose of steroids en route to the ER due to patient being severely hypoxic, showing air hunger. In reviewing her labs she has a normal total WBC count of 8; H&H 14.4/44.4, MCV elevated 100/5. Platelets 179, absolute neuropil is 81.2. Complete metabolic panel her is CO2 35, fasting glucose 242 (hyperglycemia), BUN/Serum Creatinine 34/1.90 with eGFR 27.1. Magnesium is low at 1.7, CK-MB <1.0, troponin is <0.02, BNP is in normal range at 262. Due to patients chronic co-morbidities, clinical presentation, and advanced age she will be admitted to Inpatient Medical- Surgical unit for Acute Exacerbation of COPD receiving IV antibiotics and steroids with ongoing evaluation. Home Medications Scheduled Allopurinol (Allopurinol) 100 Mg Tab, 100 MG PO DAILY, (Reported) Aspirin (Aspirin EC) 81 Mg Tablet.dr, 81 MG PO DAILY, (Reported) Calcitriol (Rocaltrol) 0.25 Mcg Capsule, 0.25 MCG PO DAILY, (Reported) Hydralazine HCl (Hydralazine HCl) 25 Mg Tablet, 25 MG PO Q6H, (Reported) Insulin Glargine,Hum.rec.anlog (Basaglar Kwikpen U-100) 100 Unit/1 Ml Insuln.pen, 8 UNITS SC QHS, (Reported) Isosorbide Mononitrate (Isosorbide Mononitrate ER) 30 Mg Tab, 30 MG PO DAILY, (Reported) Ketoconazole (Ketoconazole) 15 Gm Cream..g., 1 APLCT TOP DAILY, (Reported) APPLY TO BOTH FEET L.acidoph/L.bulg/B.bif/S.therm (Daniela-Bid Caplet) 1 Each Tablet, 1 TAB PO DAILY, (Reported) Nystatin (Nyamyc) 15 Gm Powder, 1 APPLIC TOP BID, (Reported) UNDER BREASTS AND ABDOMINAL FOLDS Pantoprazole Sodium (Pantoprazole Sodium) 40 Mg Tablet.dr, 40 MG PO DAILY, (Reported) Pregabalin (Lyrica) 75 Mg Capsule, 75 MG PO TID, (Reported) Tamsulosin Hcl (Tamsulosin HCl) 0.4 Mg Capsule, 0.4 MG PO DAILY, (Reported) Torsemide (Torsemide) 20 Mg Tablet, 50 MG PO BID, (Reported) Tramadol HCl (Tramadol HCl ER) 100 Mg Tbmp.24hr, 100 MG PO DAILY, (Reported) Scheduled PRN Albuterol Sulfate (Albuterol Sulfate) 2.5 Mg/0.5 Ml Neb, 2.5 MG INH Q4H PRN for SHORTNESS OF BREATH, (Reported) Ipratropium/Albuterol Sulfate (Iprat-Albut 0.5-3(2.5) mg/3 ml) 3 Ml Ampul.neb, 1 VIAL NEB Q6H PRN for SOB/WHEEZING, (Reported) Lorazepam (Ativan) 0.5 Mg Tablet, 0.5 MG PO BID PRN for ANXIETY, (Reported) Nitroglycerin (Nitroglycerin) 0.4 Mg Sub, 0.4 MG SL NITRO PRN for CHEST PAIN, (Reported) Tramadol HCl (Tramadol HCl) 50 Mg Tablet, 50 MG PO QID PRN for SEVERE PAIN (PS 8-10), (Reported) Allergies Coded Allergies: lisinopril (Verified Allergy, Severe, angioedema lip, 02/21/20) angioedema lip latex (Verified Allergy, Intermediate, RASH/ITCHING, 02/21/20) codeine (Verified Adverse Reaction, Mild, HEADACHE, 02/21/20) oxycodone (Verified Adverse Reaction, Mild, CONFUSION, 02/21/20) A-FIB/CHADSVASC A-FIB History Current/History of A-Fib/PAF?: Yes Current PO Anticoag Therapy: No Age/Risk Factor Scoring CHADSVASC: CHADSVASC Response (Comments) Value Age Risk Factor Age >/= 75 years old 2 Gender Risk Factor Female 1 Hx of CHF Yes 1 Hx of HTN Yes 1 Hx of Stroke/TIA/or VTE No 0 Hx of Diabetes Yes 1 Hx of Vascular Disease Yes 1 Total 7 Treatment Treatment ordered: NONE Reason Anticoagulant not given: Other (unknown) Other reason anticoagulant not: unknown Review of Systems Constitutional: Reports: Malaise, Weakness Eyes: Denies: Pain, Vision change, Conjunctivae inflammation, Eyelid inflammation, Redness, Other Skin: Reports: Dry Pulmonary: Reports: Dyspnea, Cough Cardiovascular: Reports: Orthopnea, Edema, Lt Headedness Gastrointestinal: Reports: Nausea, Abdominal Pain, Other Symptoms (decreased appetite) Genitourinary: Reports: Incontinence Hematologic: Denies: Bruising, Bleeding Excessively, Petecchia, Purpura, Enlarged Lymph Nodes, Other Hematologic Endocrine: Denies: Polydipsia, Polyphagia, Polyuria, Heat Intolerance, Cold Intolerance, Other Endocrine Sx Musculoskeletal: Reports: Back Pain, Joint Pain Neurological: Reports: Weakness Physical Examination General Exam: Positive: Alert, Cooperative Eye Exam: Positive: PERRLA, Conjunctiva & lids normal ENT Exam: Positive: Atraumatic, Mucous membr. moist/pink, Other ENT (hoarse voice) Neck Exam: Positive: Supple Chest Exam: Positive: Wheezing, Other (increased work of breathing (labored)) Heart Exam: Positive: Irregular Rhythm (m), Normal S1, Normal S2 Abdomen Exam: Positive: Normal bowel sounds, Soft, Hernia Skin Exam: Positive: Nl turgor and temperature Neuro Exam: Positive: Other (whispters when speaking) Psych Exam: Positive: Mental status NL, Oriented x 3 Vital Signs Vital Signs Date Time Temp Pulse Resp B/P (MAP) Pulse Ox O2 Delivery O2 Flow Rate FiO2 03/11/21 18:16 96.9 84 22 105/49 (67) 91 Nasal Cannula 3.0 Laboratory Data Labs 24H Laboratory Tests 2 03/11/21 17:01: Immature Granulocyte % (Auto) 1.0, Neutrophils (%) (Auto) 81.2H, Lymphocytes (%) (Auto) 9.8L, Monocytes (%) (Auto) 6.9, Eosinophils (%) (Auto) 0.8, Basophils (%) (Auto) 0.3, Neutrophils # (Auto) 6.5, Lymphocytes # (Auto) 0.8L, Monocytes # (Auto) 0.6, Eosinophils # (Auto) 0.1, Basophils # (Auto) 0.0, Nucleated Red Blood Cells % (auto) 0.0, Anion Gap 4L, Glomerular Filtration Rate 27.1L, Lactic Acid Level 1.4, Calcium Level 9.1, Total Bilirubin 0.4, Direct Bilirubin 0.1, Aspartate Amino Transf (AST/SGOT) 8, Alanine Aminotransferase (ALT/SGPT) 11L, Alkaline Phosphatase 121H, Total Creatine Kinase 64, Creatine Kinase MB < 1.0, Creatine Kinase MB Relative Index 1.56, Troponin I < 0.02, YW-Tnn-Z-Type Natriuretic Peptide 262, Total Protein 6.7, Albumin 3.5, Albumin/Globulin Ratio 1.1L, Thyroid Stimulating Hormone (TSH) 2.760, Thyroxine (T4) 8.0 CBC/BMP Laboratory Tests 03/11/21 17:01 Microbiology Microbiology 03/11/21 Respiratory Virus Panel (PCR) (DANITA) - Final, Complete 03/11/21 Blood Culture, Received Pending 03/11/21 Blood Culture, Received Pending Problems (1) COPD exacerbation Status: Acute Problem Specific Plan: Monitor Clinically Problem Text: Ms. Falcon is a elderly 81 year-old female admitted to [facility] hospital for Acute Exacerbation COPD. Plan Admit Inpatient with continuous pulse oximetry Resp: nebulizer treatment-Duoneb q 6 hours prn shortness of breath, wheezing, Hold home medication:Albuterol Sulfate nebulizer IV antibiotic Rocephin 1GM daily Check morning labs and replace electrolytes as needed. Nicotine dependence-chronic Discussed the importance of quitting smoke cigarettes and pros of continued cigarette smoking (face to face 4 minutes) Patine not ready and smokes 1 pack a day. Ordered 21 mcg Nicotine patch to be applied topically q day. Essential Hypertension with CHF-chronic AM labs ordered Controlled with medications, she will continue home medications: Hydralazine; Torsemide 50 m po bid; Isosorbide mononitrate ER 30 mg daily CKD stage 3 with Diabetes Mellitus type II Insulin dependent-chronic Check CMP labs A1C in am poc glucose AC &HS Sliding scale insulin with hypoglycemia protocol for [facility] intitiated Will continue Chest pain-chronic controlled with medication and will continue : Nitroglycerin 0.4 mg SL prn Over active Bladder with urinary-Chronic controlled with medication and continue taking Tamsulosin 0.4 mg daily GERD-chronic controlled with medication and will continue home medication Protonix 40 mg daily Fibromyalgia-chronic controlled with medication & will continue taking: Lyrica 75 mg po tid, Tramadol 50 mg po QID prn pain; Tramadol ER 100 mg po daily Anxiety-chronic controlled with medication and will continue taking: Lorazepam 0.5 mg po bid prn anxiety. PPI: continue home medication DVT Prophylaxis: Heparin 5000 IU TID SQ and TRACE HOSE-BLE Discharge: Gisella clinical course (2) A-fib Status: Chronic Problem Specific Plan: Monitor Clinically (3) CHF (congestive heart failure) Status: Chronic Problem Specific Plan: Monitor Clinically Plan / VTE VTE Prophylaxis Ordered?: Yes DEX SULLIVAN Mar 11, 2021 18:34
--- NOTE | 2021-03-11 19:36 | ECGEPIP ---
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
[2021-03-11] MEDS ORDERED: MAG SULF 1GM/100ML (MAG RUN) 1 GM in IV 1 EA IV ONE (20:00)
[2021-03-11] MEDS: IPRATROPIUM 0.5MG/ALBUTEROL 2.5MG INH SOL UD 3ML (DUONEB) NEB SCH (20:00)
[2021-03-11] MEDS: methylPREDNISolone 125MG 2ML VIAL IV SCH (20:32)
[2021-03-11] MEDS ORDERED: traMADol 50 MG TAB PO PRN (20:35)
[2021-03-11] MEDS ORDERED: GLUCOSE 4GM CHEW TABLET PO PRN (20:35)
[2021-03-11] MEDS ORDERED: LORazepam 0.5 MG TAB PO PRN (20:35)
[2021-03-11] MEDS ORDERED: GLUCAGON INJ 1MG VIAL SC PRN (20:35)
[2021-03-11] MEDS ORDERED: ALBUTEROL SULFATE 2.5 MG/0.5 ML INH NEB SOLN INH PRN (20:35)
[2021-03-11] MEDS ORDERED: DEXTROSE 50% 50 ML SYRINGE IV PRN (20:35)
[2021-03-11] MEDS ORDERED: NITROGLYCERIN 0.4 MG SUBL TABLET SL PRN (20:35)
[2021-03-11] MEDS ORDERED: LEVEMIR (INSULIN DETEMIR) 1 UNITS/0.01ML SC SCH (21:00)
[2021-03-11] MEDS: SYMBICORT 80/4.5MCG INHALER 6GM INH SCH (21:10)
[2021-03-11 22:00] VITALS: BP 146/66; O2SAT 95
[2021-03-11] MEDS: PREGABALIN 75 MG CAP(LYRICA) PO SCH (22:50)
[2021-03-11] MEDS: **hydrALAZINE HCL** 25 MG TAB PO SCH (22:50)
[2021-03-11] MEDS: NYSTATIN 100,000 UNITS/GM TOPICAL PWD 15 GM TOP SCH (22:51)
[2021-03-11] MEDS: HumaLOG INSULIN (NovoLOG) PER UNIT SC SCH (22:52)
[2021-03-11] MEDS: cefTRIAXone SOD 1 GM in D5W MINI-BAG PLUS 50 ML IV SCH (22:53)
[2021-03-11 23:00] VITALS: O2SAT 97
[2021-03-11] MEDS ORDERED: NICOTINE 21MG/24HR 1 EA TRANSDERMAL TD ONE (23:00)
[2021-03-12] VITALS (20 sets, daily range): BP systolic 113–136; BP diastolic 55–63; O2SAT 88–98
[2021-03-12] MEDS: IPRATROPIUM 0.5MG/ALBUTEROL 2.5MG INH SOL UD 3ML (DUONEB) NEB SCH ×4 (02:56→19:58)
[2021-03-12] MEDS: methylPREDNISolone 125MG 2ML VIAL IV SCH ×3 (04:48→21:12)
[2021-03-12] MEDS: **hydrALAZINE HCL** 25 MG TAB PO SCH ×3 (04:49→18:00)
[2021-03-12 05:33] LABS: BASO % 0.2 % (0.0-1.0); HEMATOCRIT 43.3 % (36.0-47.0); HEMOGLOBIN 13.6 g/dl (12.0-15.5); LYMPH # 0.6 10^3/uL (1.5-5.0); LYMPH % 9.7 % (24.0-44.0); MEAN CORPUSCULAR HEMOGLOBIN 31.6 pg (27.0-33.0); MEAN CORPUSCULAR HGB CONC 31.4 g/dl (32.0-36.5); MEAN CORPUSCULAR VOLUME 100.5 fl (80.0-96.0); MONO # 0.2 10^3/uL (0.0-0.8); MONO % 2.8 % (2.0-8.0); NEUTROPHILS # 4.9 10^3/uL (1.5-8.5); NEUTROPHILS % 85.7 % (36.0-66.0); PLATELET COUNT, AUTOMATED 162 10^3/uL (150-450); RED BLOOD COUNT 4.31 10^6/uL (4.00-5.40); WHITE BLOOD COUNT 5.7 10^3/uL (4.0-10.0)
[2021-03-12 05:52] LABS: CALCIUM LEVEL 9.3 MG/DL (8.8-10.2); CREATININE FOR GFR 1.9 MG/DL (0.55-1.30); GLOMERULAR FILTRATION RATE 27.1 (>32); MAGNESIUM LEVEL 2.2 MG/DL (1.8-2.4); POTASSIUM SERUM 4.6 MEQ/L (3.5-5.1)
[2021-03-12] MEDS: SYMBICORT 80/4.5MCG INHALER 6GM INH SCH ×2 (07:58→19:58)
--- NOTE | 2021-03-12 08:30 | IPNPDOC ---
Text Note Date of Service The patient was seen on 03/12/21. NOTE Subjective: patient seen and examined at bedside. No acute overnight events reported. patient voices no new medical complaints this morning. Discussed anti- coagulation with regards to her afib. She is not aware of any reasons not to be on anti-coagulation. She denies falls. Objective: General: NAD, lying comfortably in bed HEENT: NC/AT, nasal cannula in place Lungs: diminished breath sounds, scattered wheezing Heart: +S1S2 Abd: soft, obese, NT, +BS Ext: trace edema A/P: 81 yo female presents for several days of shortness of breath, admitted for COPD exacerbation. #COPD exacerbation/chronic hypoxic respiratory failure - baseline 3L supplemental oxygen - nebulizer treatment-Duoneb q 6 hours prn shortness of breath, wheezing, - IV antibiotic Rocephin 1g daily - wean IV steroids - transition to PO prednisone in 24-48 hours #Nicotine dependence - continue with nicotine replacement therapy - counselling provided at bedside - 21 mcg Nicotine patch to be applied topically q day. #HTN - continue home meds - Hydralazine, Torsemide 50 m po bid, Isosorbide mononitrate ER 30 mg daily #HFpEF - grossly compensated - continue home Rx - as above, hydralazine, torsemide, isosorbide mononitrate ER #CKD stage 3 - at baseline #DMII - IDDM - ISS, carb consistent diet #Chest pain - controlled with medication and will continue : Nitroglycerin 0.4 mg SL prn #Over active Bladder - continue Tamsulosin 0.4 mg daily #GERD - continue Protonix 40 mg daily #Fibromyalgia - continue Lyrica 75 mg po tid, Tramadol 50 QID prn pain; Tramadol ER 100 mg po daily #Anxiety - continue Lorazepam 0.5 mg po bid prn # A-fib - rate controlled - she does not know why she is not on anti-coagulation - follows with Dr. Sanchez #DVT prophylaxis Dispo: pending clinical improvement, PT/OT, possible d/c to ARU once medically clear VS,Fishbone, I+O VS, Fishbone, I+O Laboratory Tests 03/11/21 17:01 03/12/21 05:12 Vital Signs Date Time Temp Pulse Resp B/P (MAP) Pulse Ox O2 Delivery O2 Flow Rate FiO2 03/12/21 05:14 97.3 77 22 133/62 (85) 95 Nasal Cannula 3.0 I&O- Last 24 Hours up to 6 AM 03/12/21 06:00 Intake Total 200 ml Balance 200 ml MARCELLE GABRIEL MD Mar 12, 2021 08:30
[2021-03-12] MEDS: NICOTINE 21MG/24HR 1 EA TRANSDERMAL TD SCH (08:31)
[2021-03-12] MEDS: NYSTATIN 100,000 UNITS/GM TOPICAL PWD 15 GM TOP SCH ×2 (08:31→21:14)
[2021-03-12] MEDS: HumaLOG INSULIN (NovoLOG) PER UNIT SC SCH ×4 (08:31→21:13)
[2021-03-12] MEDS: ENOXAPARIN 30MG/0.3ML SYRINGE (J1650 PER 10MG) SC SCH (08:31)
[2021-03-12] MEDS: KETOCONAZOLE 2% CREAM TOP SCH (08:32)
[2021-03-12] MEDS: traMADol ER 100MG TABLET (ULTRAM ER) PO SCH (08:32)
[2021-03-12] MEDS: TORSEMIDE 20 MG TAB PO SCH ×2 (08:32→17:25)
[2021-03-12] MEDS: allopurinoL 100 MG TAB PO SCH (08:32)
[2021-03-12] MEDS: ASPIRIN 81MG ENTERIC TABLET PO SCH (08:32)
[2021-03-12] MEDS: LACTOBACILLUS ACIDOPHILUS CAP (BACID) PO SCH (08:32)
[2021-03-12] MEDS: PREGABALIN 75 MG CAP(LYRICA) PO SCH ×3 (08:33→21:11)
[2021-03-12] MEDS: ISOSORBIDE MON. (IMDUR) 30 MG XR TAB PO SCH (08:33)
[2021-03-12] MEDS: CALCITRIOL 0.25 MCG CAP (S0169) PO SCH (08:33)
[2021-03-12] MEDS: PANTOPRAZOLE 40MG TAB (PROTONIX) PO SCH (08:34)
[2021-03-12] MEDS: TAMSULOSIN 0.4 MG CAP PO SCH (08:34)
[2021-03-12] MEDS ORDERED: SLF 3 ML SYR IV PRN (11:45)
[2021-03-12] MEDS: SLF 3 ML SYR IV SCH ×2 (12:28→21:14)
[2021-03-12] MEDS: cefTRIAXone SOD 1 GM in D5W MINI-BAG PLUS 50 ML IV SCH (21:12)
[2021-03-12] MEDS: LEVEMIR (INSULIN DETEMIR) 1 UNITS/0.01ML SC SCH (21:14)
[2021-03-13] MEDS: IPRATROPIUM 0.5MG/ALBUTEROL 2.5MG INH SOL UD 3ML (DUONEB) NEB SCH ×3 (00:58→12:51)
[2021-03-13 01:20] VITALS: BP 132/57
[2021-03-13 04:42] VITALS: O2SAT 92
[2021-03-13] MEDS: **hydrALAZINE HCL** 25 MG TAB PO SCH ×3 (05:26→11:44)
[2021-03-13] MEDS: SLF 3 ML SYR IV SCH ×2 (05:26→14:00)
[2021-03-13 06:00] VITALS: BP 128/53
[2021-03-13] MEDS: SYMBICORT 80/4.5MCG INHALER 6GM INH SCH (07:20)
[2021-03-13] MEDS: ASPIRIN 81MG ENTERIC TABLET PO SCH (08:23)
[2021-03-13] MEDS: allopurinoL 100 MG TAB PO SCH (08:23)
[2021-03-13] MEDS: PREGABALIN 75 MG CAP(LYRICA) PO SCH (08:23)
[2021-03-13] MEDS: TAMSULOSIN 0.4 MG CAP PO SCH (08:24)
[2021-03-13] MEDS: TORSEMIDE 20 MG TAB PO SCH (08:24)
[2021-03-13] MEDS: PANTOPRAZOLE 40MG TAB (PROTONIX) PO SCH (08:26)
[2021-03-13] MEDS: HumaLOG INSULIN (NovoLOG) PER UNIT SC SCH ×2 (08:26→11:44)
[2021-03-13] MEDS: LEVEMIR (INSULIN DETEMIR) 1 UNITS/0.01ML SC SCH (08:26)
[2021-03-13] MEDS: LACTOBACILLUS ACIDOPHILUS CAP (BACID) PO SCH (08:26)
[2021-03-13] MEDS: CALCITRIOL 0.25 MCG CAP (S0169) PO SCH (08:26)
[2021-03-13] MEDS: ENOXAPARIN 30MG/0.3ML SYRINGE (J1650 PER 10MG) SC SCH (08:27)
[2021-03-13] MEDS: traMADol ER 100MG TABLET (ULTRAM ER) PO SCH (08:27)
[2021-03-13] MEDS: NICOTINE 21MG/24HR 1 EA TRANSDERMAL TD SCH (08:27)
[2021-03-13] MEDS: ISOSORBIDE MON. (IMDUR) 30 MG XR TAB PO SCH (08:30)
[2021-03-13] MEDS: NYSTATIN 100,000 UNITS/GM TOPICAL PWD 15 GM TOP SCH (08:36)
[2021-03-13] MEDS: KETOCONAZOLE 2% CREAM TOP SCH (08:36)
[2021-03-13] MEDS ORDERED: predniSONE 50 MG TAB PO SCH (09:00)
[2021-03-13 11:44] VITALS: BP 125/51
[2021-03-13] MEDS ORDERED: NICO21PAT TD (12:06)
[2021-03-13] MEDS ORDERED: PRED10TA2 PO (12:06)
[2021-03-13] MEDS ORDERED: CEFD1CAP8 PO (12:06)
--- NOTE | 2021-03-13 14:14 | DS.PDOC ---
Discharge Summary General Date of Admission Mar 11, 2021 at 15:43 Date of Discharge 03/13/2021 Discharge Summary PROCEDURES PERFORMED DURING STAY: [None]. ADMITTING DIAGNOSES: 1. . DISCHARGE DIAGNOSES: 1. . COMPLICATIONS/CHIEF COMPLAINT: Copd Exacerbation. HISTORY OF PRESENT ILLNESS: . HOSPITAL COURSE: . DISCHARGE MEDICATIONS: Please see below. ALLERGIES: Please see below. PHYSICAL EXAMINATION ON DISCHARGE: VITAL SIGNS: Please see below. GENERAL: HEENT: NECK: CARDIOVASCULAR EXAMINATION: RESPIRATORY EXAMINATION: ABDOMINAL EXAMINATION: EXTREMITIES: SKIN: NEUROLOGICAL EXAMINATION: PSYCHIATRIC EXAMINATION: LABORATORY DATA: Please see below. IMAGING: PROGNOSIS: ACTIVITY: [As tolerated]. DIET: DISCHARGE PLAN: DISPOSITION: . DISCHARGE INSTRUCTIONS: 1. . ITEMS TO FOLLOWUP ON ON OUTPATIENT: 1. . DISCHARGE CONDITION: [Stable]. TIME SPENT ON DISCHARGE: Greater than minutes. Vital Signs/I&Os Vital Signs Date Time Temp Pulse Resp B/P (MAP) Pulse Ox O2 Delivery O2 Flow Rate FiO2 03/13/21 11:44 125/51 03/13/21 09:00 3.0 03/13/21 06:00 98.1 72 18 90 Nasal Cannula I&O- Last 24 Hours up to 6 AM 03/13/21 06:00 Intake Total 700 ml Output Total 400 ml Balance 300 ml Laboratory Data Labs 24H Laboratory Tests 2 03/12/21 16:40: Bedside Glucose (Misc Panel) 260H 03/12/21 20:51: Bedside Glucose (Misc Panel) 258H 03/13/21 06:44: Bedside Glucose (Misc Panel) 273H 03/13/21 11:19: Bedside Glucose (Misc Panel) 310H FSBS Laboratory Tests Test 03/12/21 16:40 03/12/21 20:51 03/13/21 06:44 03/13/21 11:19 Range/Units Bedside Glucose (Misc Panel) 260 258 273 310 83-110 MG/DL Microbiology Microbiology 03/11/21 Blood Culture - Preliminary, Resulted No growth after 24 hours . All specim... 03/11/21 Respiratory Virus Panel (PCR) (DANITA) - Final, Complete 03/11/21 Blood Culture - Preliminary, Resulted No growth after 24 hours . All specim... 03/11/21 Blood Culture - Preliminary, Resulted No growth after 24 hours . All specim... Discharge Medications Scheduled Allopurinol (Allopurinol) 100 Mg Tab, 100 MG PO DAILY, (Reported) Aspirin (Aspirin EC) 81 Mg Tablet.dr, 81 MG PO DAILY, (Reported) Calcitriol (Rocaltrol) 0.25 Mcg Capsule, 0.25 MCG PO DAILY, (Reported) Cefdinir (Cefdinir) 300 Mg Capsule, 1 CAP PO BID Hydralazine HCl (Hydralazine HCl) 25 Mg Tablet, 25 MG PO Q6H, (Reported) Insulin Glargine,Hum.rec.anlog (Basaglar Kwikpen U-100) 100 Unit/1 Ml Insuln.pen, 8 UNITS SC QHS, (Reported) Isosorbide Mononitrate (Isosorbide Mononitrate ER) 30 Mg Tab, 30 MG PO DAILY, (Reported) Ketoconazole (Ketoconazole) 15 Gm Cream..g., 1 APLCT TOP DAILY, (Reported) APPLY TO BOTH FEET L.acidoph/L.bulg/B.bif/S.therm (Daniela-Bid Caplet) 1 Each Tablet, 1 TAB PO DAILY, (Reported) Nicotine (Nicotine Patch) 21 Mg Patch.td24, 1 PATCH TD DAILY Nystatin (Nyamyc) 15 Gm Powder, 1 APPLIC TOP BID, (Reported) UNDER BREASTS AND ABDOMINAL FOLDS Pantoprazole Sodium (Pantoprazole Sodium) 40 Mg Tablet.dr, 40 MG PO DAILY, (Reported) Prednisone (Prednisone) 10 Mg Tablet, 10 MG PO TAPER Take 4 tabs daily x 3 days, then 3 tabs daily x 3 days, then 2 tabs daily x 3 days, then 1 tab daily x 3 days and stop Pregabalin (Lyrica) 75 Mg Capsule, 75 MG PO TID, (Reported) Tamsulosin Hcl (Tamsulosin HCl) 0.4 Mg Capsule, 0.4 MG PO DAILY, (Reported) Torsemide (Torsemide) 20 Mg Tablet, 50 MG PO BID, (Reported) Tramadol HCl (Tramadol HCl ER) 100 Mg Tbmp.24hr, 100 MG PO DAILY, (Reported) Scheduled PRN Albuterol Sulfate (Albuterol Sulfate) 2.5 Mg/0.5 Ml Neb, 2.5 MG INH Q4H PRN for SHORTNESS OF BREATH, (Reported) Ipratropium/Albuterol Sulfate (Iprat-Albut 0.5-3(2.5) mg/3 ml) 3 Ml Ampul.neb, 1 VIAL NEB Q6H PRN for SOB/WHEEZING, (Reported) Lorazepam (Ativan) 0.5 Mg Tablet, 0.5 MG PO BID PRN for ANXIETY, (Reported) Nitroglycerin (Nitroglycerin) 0.4 Mg Sub, 0.4 MG SL NITRO PRN for CHEST PAIN, (Reported) Tramadol HCl (Tramadol HCl) 50 Mg Tablet, 50 MG PO QID PRN for SEVERE PAIN (PS 8-10), (Reported) Allergies Coded Allergies: lisinopril (Verified Allergy, Severe, angioedema lip, 02/21/20) angioedema lip latex (Verified Allergy, Intermediate, RASH/ITCHING, 02/21/20) codeine (Verified Adverse Reaction, Mild, HEADACHE, 02/21/20) oxycodone (Verified Adverse Reaction, Mild, CONFUSION, 02/21/20) MARCELLE GABRIEL MD Mar 13, 2021 14:14
== END 2021-03-13 16:54 | disposition home health service (06) | DRG 191 ==
LOC: M ED 15:42 → OBSVTOIN 15:43 → M ED INP 15:43 → ENRESERV 18:59 → M PCU 20:45 → M MSPAV 03-13 01:17
PROVIDERS: ADMIT Internal Medicine Nephrology; ATTEND Internal Medicine
DX: J44.1 Chronic obstructive pulmonary disease with (acute) exacerbation (principal); I13.0 Hypertensive heart and chronic kidney disease with heart failure and stage 1 through stage 4 chronic kidney disease, or unspecified chronic kidney disease; J96.11 Chronic respiratory failure with hypoxia; I50.9 Heart failure, unspecified; N18.30 Chronic kidney disease, stage 3 unspecified; E11.65 Type 2 diabetes mellitus with hyperglycemia; E11.22 Type 2 diabetes mellitus with diabetic chronic kidney disease; Z99.81 Dependence on supplemental oxygen; F17.210 Nicotine dependence, cigarettes, uncomplicated; I48.91 Unspecified atrial fibrillation; Z79.82 Long term (current) use of aspirin; Z79.4 Long term (current) use of insulin; Z79.899 Other long term (current) drug therapy; Z88.5 Allergy status to narcotic agent; Z88.8 Allergy status to other drugs, medicaments and biological substances; Z91.040 Latex allergy status; N32.81 Overactive bladder; M79.7 Fibromyalgia; K21.9 Gastro-esophageal reflux disease without esophagitis; F41.9 Anxiety disorder, unspecified; R07.89 Other chest pain; Z20.822 Contact with and (suspected) exposure to COVID-19

== ENCOUNTER 2021-04-28 12:29 | Emergency (ER) | payer MEDICARE ==
[~2021-04-28] VITALS: Ht 154.9 cm; Wt 78.2 kg
[~2021-04-28 12:29] MED LIST changes: +ASPI81TA26 PO; +ATIV1TAB10 PO; +BASA100I SC; +CEFD1CAP8 PO; +ERGO500029 PO; +NICO21PAT TD; -NICOTINE 21MG/24HR 1 EA TRANSDERMAL TD SCH; +TAMS1CAP17 PO; +TRAM100T18 PO; +TRAM50TA2 PO; -VITA50005 PO
--- NOTE | 2021-04-28 13:07 | REP ---
INDICATION: DYSPNEA/COUGH. COMPARISON: Comparison chest x-ray March 11, 2021. TECHNIQUE: Portable upright AP chest radiograph. FINDINGS: The lungs are symmetrically aerated and free of infiltrate. The pleural angles are sharp. The heart is enlarged. Mediastinum is somewhat widened unchanged.. Pulmonary vasculature is not increased. IMPRESSION: Cardiomegaly. No significant change from recent previous studies.. <Electronically signed by Mukesh Norris > 04/28/21 [id number]
[2021-04-28 13:16] LABS: BASO % 0.4 % (0.0-1.0); EOS # 0.1 10^3/uL (0.0-0.5); EOS % 1.3 % (0.0-3.0); HEMATOCRIT 44.3 % (36.0-47.0); HEMOGLOBIN 14.1 g/dl (12.0-15.5); LYMPH # 1.9 10^3/uL (1.5-5.0); LYMPH % 22.7 % (24.0-44.0); MEAN CORPUSCULAR HEMOGLOBIN 31.8 pg (27.0-33.0); MEAN CORPUSCULAR HGB CONC 31.8 g/dl (32.0-36.5); MONO # 1.1 10^3/uL (0.0-0.8); MONO % 13.9 % (2.0-8.0); NEUTROPHILS % 60.6 % (36.0-66.0); PLATELET COUNT, AUTOMATED 150 10^3/uL (150-450); RED BLOOD COUNT 4.43 10^6/uL (4.00-5.40); WHITE BLOOD COUNT 8.2 10^3/uL (4.0-10.0)
[2021-04-28 13:55] LABS: ALT/SGPT 13 U/L (12-78); BLOOD UREA NITROGEN 40 MG/DL (7-18); CALCIUM LEVEL 9.1 MG/DL (8.8-10.2); CARBON DIOXIDE LEVEL 34 MEQ/L (21-32); CHLORIDE LEVEL 101 MEQ/L (98-107); CPK CREATINE PHOSPHOKINASE 105 U/L (26-192); CREATININE FOR GFR 1.71 MG/DL (0.55-1.30); GLOMERULAR FILTRATION RATE 30.6 (>32); GLUCOSE, FASTING 145 MG/DL (70-100); POTASSIUM SERUM 4.4 MEQ/L (3.5-5.1); SODIUM LEVEL 141 MEQ/L (136-145)
[2021-04-28 13:56] LABS: ALBUMIN 3.2 GM/DL (3.2-5.2); BILIRUBIN,DIRECT < 0.1 MG/DL (0.0-0.2); BILIRUBIN,TOTAL 0.3 MG/DL (0.2-1.0); CK-MB VALUE MASS < 1.0 NG/ML (<3.6); MB/CK RELATIVE INDEX 0.95 (< OR =4); TOTAL PROTEIN 6.5 GM/DL (6.4-8.2)
[2021-04-28 14:16] LABS: RSV AMPLIFICATION NEGATIVE (NEGATIVE)
[2021-04-28] MEDS ORDERED: hydrALAZINE 20MG/ML 1ML VIAL (J0360 PER 20MG) IV STA (14:49)
[2021-04-28 15:48] VITALS: O2SAT 96
[2021-04-28 16:42] LABS: VENOUS BASE EXCESS 7.2 (-2.0-2.0); VENOUS HCO3 35.5 MEQ/L (23.0-27.0); VENOUS O2 SATURATION 91.6 % (60.0-80.0); VENOUS PARTIAL PRESSURE CO2 67.5 mmHg (38.0-50.0); VENOUS PARTIAL PRESSURE O2 61.9 mmHg (30.0-50.0); VENOUS PH 7.339 UNITS (7.330-7.430); VENOUS STANDARD HCO3 30.9 MEQ/L; VENOUS TOTAL CO2 37.6 MEQ/L (24.0-28.0)
[2021-04-28 17:53] VITALS: BP 149/70
[2021-04-28 18:30] VITALS: BP 143/85
--- NOTE | 2021-04-28 21:32 | ECGEPIP ---
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
== END 2021-04-28 19:11 | disposition home or self-care (01) ==
LOC: M ED 12:29 → EDBD 12:29 → M ED 19:11
DX: J44.1 Chronic obstructive pulmonary disease with (acute) exacerbation (principal); I51.7 Cardiomegaly; E11.9 Type 2 diabetes mellitus without complications; K21.9 Gastro-esophageal reflux disease without esophagitis; N18.9 Chronic kidney disease, unspecified; Z99.81 Dependence on supplemental oxygen; Z86.79 Personal history of other diseases of the circulatory system; Z95.5 Presence of coronary angioplasty implant and graft; F17.200 Nicotine dependence, unspecified, uncomplicated; Z79.4 Long term (current) use of insulin; Z79.82 Long term (current) use of aspirin; Z79.899 Other long term (current) drug therapy; Z88.5 Allergy status to narcotic agent; Z88.8 Allergy status to other drugs, medicaments and biological substances; Z91.040 Latex allergy status

== ENCOUNTER 2021-05-15 22:24 | Emergency (ER) | payer MEDICARE ==
[~2021-05-15] VITALS: Ht 154.9 cm; Wt 89.5 kg
[2021-05-15 22:58] VITALS: BP 173/72
== END 2021-05-16 01:15 | disposition left against medical advice (07) ==
LOC: M ED 22:24 → EDBD 22:24 → M ED 05-16 01:15
DX: T14.8XXA Other injury of unspecified body region, initial encounter (principal); Y92.099 Unspecified place in other non-institutional residence as the place of occurrence of the external cause; Y93.9 Activity, unspecified; J44.9 Chronic obstructive pulmonary disease, unspecified; N18.30 Chronic kidney disease, stage 3 unspecified; Z79.82 Long term (current) use of aspirin; Z79.899 Other long term (current) drug therapy; Z88.5 Allergy status to narcotic agent; Z88.8 Allergy status to other drugs, medicaments and biological substances; Z91.040 Latex allergy status

== ENCOUNTER 2021-05-17 00:51 | Emergency (ER) | payer MEDICARE ==
[~2021-05-17] VITALS: Ht 167.6 cm; Wt 77.3 kg
[2021-05-17 01:20] LABS: BASO % 0.2 % (0.0-1.0); EOS # 0.1 10^3/uL (0.0-0.5); EOS % 0.6 % (0.0-3.0); HEMATOCRIT 44.1 % (36.0-47.0); LYMPH # 1.8 10^3/uL (1.5-5.0); LYMPH % 20.4 % (24.0-44.0); MEAN CORPUSCULAR HEMOGLOBIN 31.7 pg (27.0-33.0); MEAN CORPUSCULAR HGB CONC 31.7 g/dl (32.0-36.5); MEAN CORPUSCULAR VOLUME 99.8 fl (80.0-96.0); MONO # 1.4 10^3/uL (0.0-0.8); MONO % 16.5 % (2.0-8.0); NEUTROPHILS # 5.4 10^3/uL (1.5-8.5); NEUTROPHILS % 61.5 % (36.0-66.0); PLATELET COUNT, AUTOMATED 170 10^3/uL (150-450); RED BLOOD COUNT 4.42 10^6/uL (4.00-5.40); WHITE BLOOD COUNT 8.7 10^3/uL (4.0-10.0)
[2021-05-17 02:04] LABS: ALBUMIN 3.3 GM/DL (3.2-5.2); ALT/SGPT 16 U/L (12-78); BILIRUBIN,DIRECT 0.1 MG/DL (0.0-0.2); BILIRUBIN,TOTAL 0.3 MG/DL (0.2-1.0); BLOOD UREA NITROGEN 42 MG/DL (7-18); CALCIUM LEVEL 8.8 MG/DL (8.8-10.2); CARBON DIOXIDE LEVEL 34 MEQ/L (21-32); CHLORIDE LEVEL 98 MEQ/L (98-107); CK-MB VALUE MASS 1.2 NG/ML (<3.6); CPK CREATINE PHOSPHOKINASE 127 U/L (26-192); CREATININE FOR GFR 1.89 MG/DL (0.55-1.30); FREE T4 1.05 NG/DL (0.76-1.46); GLOMERULAR FILTRATION RATE 27.2 (>32); GLUCOSE, FASTING 143 MG/DL (70-100); MB/CK RELATIVE INDEX 0.94 (< OR =4); NT-PRO BNP 527 PG/ML (<450); POTASSIUM SERUM 3.9 MEQ/L (3.5-5.1); SODIUM LEVEL 136 MEQ/L (136-145); TOTAL PROTEIN 6.3 GM/DL (6.4-8.2); TROPONIN I < 0.02 NG/ML (< 0.10)
--- NOTE | 2021-05-17 02:51 | REPVR ---
PROCEDURE INFORMATION: Exam: XR Chest Exam date and time: 05/17/2021 12:55 AM Age: 81 years old Clinical indication: Other: SOB TECHNIQUE: Imaging protocol: XR of the chest. Views: 2 views. COMPARISON: 1. OH PORTABLE CHEST X-RAY 2021-04-28 12:53 2. CR PORTABLE CHEST X-RAY 2021-03-11 16:15 3. CR PORTABLE CHEST X-RAY 2020-12-31 22:[address] Chest without contrast 2020-02-21 18:22 FINDINGS: Lungs: There is increased pulmonary vascularity and bibasilar atelectasis. No lung consolidation is noted. Pleural spaces: Unremarkable. No pleural effusion. No pneumothorax. Heart/Mediastinum: Mild cardiomegaly. Vasculature: There are atherosclerotic calcifications of the aortic arch. Bones/joints: There is a calcific density in the right rotator cuff, which is compatible with calcific right rotator cuff tendinitis. IMPRESSION: No acute findings. Electronically signed by: Rudolph Jamil On 05/17/2021 02:51:07 AM
[2021-05-17] MEDS ORDERED: IPRATROPIUM 0.5MG/ALBUTEROL 2.5MG INH SOL UD 3ML (DUONEB) NEB ONE (03:35)
[2021-05-17] MEDS ORDERED: methylPREDNISolone 125MG 2ML VIAL IV ONE (03:35)
[2021-05-17 04:02] VITALS: BP 139/94
--- NOTE | 2021-05-17 06:52 | ECGEPIP ---
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
== END 2021-05-17 04:06 | disposition left against medical advice (07) ==
LOC: M ED 02:17
DX: R06.02 Shortness of breath (principal); I48.91 Unspecified atrial fibrillation; I50.9 Heart failure, unspecified; J44.9 Chronic obstructive pulmonary disease, unspecified; N18.9 Chronic kidney disease, unspecified; E11.9 Type 2 diabetes mellitus without complications; F17.200 Nicotine dependence, unspecified, uncomplicated; Z79.82 Long term (current) use of aspirin; Z79.4 Long term (current) use of insulin; Z79.52 Long term (current) use of systemic steroids; Z79.899 Other long term (current) drug therapy; Z88.5 Allergy status to narcotic agent; Z91.040 Latex allergy status; Z88.8 Allergy status to other drugs, medicaments and biological substances
CPT/HCPCS: 71046; 80048; 80076; 82550; 82553; 83880; 84439; 84443; 84484; 85025; 93005; 93041; 94760; 96374; 99285; J2930

== ENCOUNTER 2021-05-19 21:19 | Emergency (ER) | payer MEDICARE ==
[~2021-05-19] VITALS: Ht 154.9 cm; Wt 87.3 kg
[2021-05-19 23:00] VITALS: BP 156/70
--- NOTE | 2021-05-20 09:03 | ECGEPIP ---
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
== END 2021-05-19 23:32 | disposition left against medical advice (07) ==
LOC: M ED 21:19
DX: R06.02 Shortness of breath (principal); J44.9 Chronic obstructive pulmonary disease, unspecified; F41.1 Generalized anxiety disorder; F17.200 Nicotine dependence, unspecified, uncomplicated; Z53.9 Procedure and treatment not carried out, unspecified reason; Z79.84 Long term (current) use of oral hypoglycemic drugs; Z79.899 Other long term (current) drug therapy; Z88.5 Allergy status to narcotic agent; Z88.8 Allergy status to other drugs, medicaments and biological substances; Z91.040 Latex allergy status

== ENCOUNTER 2021-05-26 19:17 | Emergency (ER) | payer MEDICARE ==
[~2021-05-26] VITALS: Ht 154.9 cm; Wt 80.0 kg
[2021-05-26] MEDS ORDERED: ALBU83IN NEB (19:38)
[2021-05-26] MEDS ORDERED: COMBIVENT RESPIMAT 100-20MCG INHALER 4GM INH SCH (19:45)
[2021-05-26 20:22] LABS: BASO % 0.1 % (0.0-1.0); EOS # 0.1 10^3/uL (0.0-0.5); EOS % 1.1 % (0.0-3.0); HEMATOCRIT 45.6 % (36.0-47.0); HEMOGLOBIN 14.3 g/dl (12.0-15.5); LYMPH # 1.3 10^3/uL (1.5-5.0); LYMPH % 18.3 % (24.0-44.0); MEAN CORPUSCULAR HEMOGLOBIN 31.3 pg (27.0-33.0); MEAN CORPUSCULAR HGB CONC 31.4 g/dl (32.0-36.5); MEAN CORPUSCULAR VOLUME 99.8 fl (80.0-96.0); MONO # 0.9 10^3/uL (0.0-0.8); MONO % 12.9 % (2.0-8.0); NEUTROPHILS # 4.7 10^3/uL (1.5-8.5); NEUTROPHILS % 66.8 % (36.0-66.0); PLATELET COUNT, AUTOMATED 189 10^3/uL (150-450); RED BLOOD COUNT 4.57 10^6/uL (4.00-5.40); WHITE BLOOD COUNT 7.1 10^3/uL (4.0-10.0)
--- NOTE | 2021-05-26 20:24 | REPVR ---
PROCEDURE INFORMATION: Exam: XR Chest Exam date and time: 05/26/2021 8:18 PM Age: 81 years old Clinical indication: Shortness of breath; Additional info: Dyspnea/cough TECHNIQUE: Imaging protocol: XR of the chest. Views: 1 view. COMPARISON: CR Chest, 2 view PA, Lat 05/17/2021 1:36 AM FINDINGS: Lungs: Patchy infiltrate right lower lobe. Remaining lungs clear. Pleural spaces: Unremarkable. No pleural effusion. No pneumothorax. Heart/Mediastinum: Unremarkable. No cardiomegaly. Vasculature: Uncoiled thoracic aorta. Bones/joints: Unremarkable. IMPRESSION: Patchy infiltrate right lower lobe. Electronically signed by: Clifford Clements On 05/26/2021 20:23:15 PM
[2021-05-26 20:47] LABS: ALBUMIN 3.1 GM/DL (3.2-5.2); ALT/SGPT 15 U/L (12-78); BILIRUBIN,DIRECT 0.1 MG/DL (0.0-0.2); BILIRUBIN,TOTAL 0.3 MG/DL (0.2-1.0); BLOOD UREA NITROGEN 35 MG/DL (7-18); CALCIUM LEVEL 9.2 MG/DL (8.8-10.2); CARBON DIOXIDE LEVEL 37 MEQ/L (21-32); CHLORIDE LEVEL 98 MEQ/L (98-107); CK-MB VALUE MASS 2.5 NG/ML (<3.6); CPK CREATINE PHOSPHOKINASE 39 U/L (26-192); CREATININE FOR GFR 1.68 MG/DL (0.55-1.30); GLOMERULAR FILTRATION RATE 31.2 (>32); GLUCOSE, FASTING 157 MG/DL (70-100); MB/CK RELATIVE INDEX 6.41 (< OR =4); NT-PRO BNP 447 PG/ML (<450); POTASSIUM SERUM 3.9 MEQ/L (3.5-5.1); SODIUM LEVEL 140 MEQ/L (136-145); TOTAL PROTEIN 6.1 GM/DL (6.4-8.2); TROPONIN I < 0.02 NG/ML (< 0.10)
[2021-05-26] MEDS ORDERED: cefTRIAXone SOD 2 GM in D5W MINI-BAG PLUS 50 ML IV ONE (21:00)
[2021-05-26] MEDS ORDERED: cefTRIAXone SOD 2 GM VIAL (J0696 PER 250MG) As Ordered ONE (21:14)
--- NOTE | 2021-05-26 22:00 | REPVR ---
PROCEDURE INFORMATION: Exam: CT Chest Without Contrast; Diagnostic Exam date and time: 05/26/2021 9:33 PM Age: 81 years old Clinical indication: Other: Shortness of breath, R/O infiltrate TECHNIQUE: Imaging protocol: Diagnostic computed tomography of the chest without contrast. 3D rendering (Not supervised by radiologist): MIP and/or 3D reconstructed images were created by the technologist. Radiation optimization: All CT scans at this facility use at least one of these dose optimization techniques: automated exposure control; mA and/or kV adjustment per patient size (includes targeted exams where dose is matched to clinical indication); or iterative reconstruction. COMPARISON: CT Chest without contrast 02/21/2020 6:22 PM FINDINGS: Lungs: There is a solid lobular mass in the medial left apex measuring 3.2 x 2.6 x 2.6 cm. Findings consistent with malignancy. Correlation with PET imaging suggested according to Fleischner guidelines. Left lower lobe mass measures 1.3 x 0.9 x 0.6 cm. Mixed ground-glass infiltrate with parenchymal stranding in the right middle lobe and right lower lobe may represent atelectasis although an active infiltrate not excluded. Scattered subcentimeter pulmonary parenchymal nodules of uncertain significance. Pleural spaces: Small pleural based nodule in the right middle lobe measures 6 x 6 x 6 mm. Heart: There is moderate atherosclerotic calcification of the coronary arteries. Aorta: There is mild atherosclerosis in the thoracic aorta. Lymph nodes: Extensive mediastinal lymphadenopathy measuring up to 4.2 x 4 cm in the retrocaval pretracheal area, 2.9 x 1.9 cm in the left periaortic region, and 4.7 x 3.2 cm in the subcarinal region. Findings likely represents malignant adenopathy. Adrenal glands: There is bilateral adrenal hyperplasia. Bones/joints: The spine demonstrates mild degenerative changes. Soft tissues: Unremarkable. Other findings: Left suprahilar mass measures 2 x 2.6 x 1.9 cm. IMPRESSION: 1. There is a solid lobular mass in the medial left apex measuring 3.2 x 2.6 x 2.6 cm. Findings consistent with malignancy. Correlation with PET imaging suggested according to Fleischner guidelines. Multiple other pulmonary masses as described above also suspect for representing malignant foci. Multiplicity lesions suggest metastatic disease although hematogenous spread not excluded. 2. Large likely malignant lymph nodes demonstrated in the mediastinum. 3. There is bilateral adrenal hyperplasia. Electronically signed by: Clifford Clements On 05/26/2021 21:59:35 PM
[2021-05-26] MEDS ORDERED: AZIT500T5 PO (22:41)
[2021-05-26] MEDS ORDERED: PRED20TA PO (22:41)
[2021-05-26 22:46] VITALS: BP 151/72
[2021-05-27] MEDS ORDERED: AMLO1TAB24 PO (02:07)
[2021-05-27] MEDS ORDERED: med rec comment (02:34)
--- NOTE | 2021-05-27 08:56 | ECGEPIP ---
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
== END 2021-05-26 23:05 | disposition home or self-care (01) ==
LOC: M ED 19:17
DX: J44.1 Chronic obstructive pulmonary disease with (acute) exacerbation (principal); R91.8 Other nonspecific abnormal finding of lung field; I48.91 Unspecified atrial fibrillation; I50.9 Heart failure, unspecified; E11.9 Type 2 diabetes mellitus without complications; N18.30 Chronic kidney disease, stage 3 unspecified; G47.33 Obstructive sleep apnea (adult) (pediatric); Z86.79 Personal history of other diseases of the circulatory system; Z95.5 Presence of coronary angioplasty implant and graft; F17.200 Nicotine dependence, unspecified, uncomplicated; E27.8 Other specified disorders of adrenal gland; Z79.4 Long term (current) use of insulin; Z79.899 Other long term (current) drug therapy; Z88.5 Allergy status to narcotic agent; Z88.8 Allergy status to other drugs, medicaments and biological substances; Z91.040 Latex allergy status

== ENCOUNTER 2021-05-27 01:57 | Inpatient (IN) | payer MEDICARE ==
[~2021-05-27] VITALS: Ht 154.9 cm; Wt 79.2 kg
[~2021-05-27 01:57] MED LIST changes: +ALBU83IN NEB; +AZIT500T5 PO
[2021-05-27] MEDS ORDERED: AMLO1TAB24 PO (02:07)
[2021-05-27] MEDS ORDERED: med rec comment (02:34)
[2021-05-27] MEDS ORDERED: HOME MED LIST COMPLETE! XX SCH (02:35)
[2021-05-27] MEDS ORDERED: COMBIVENT RESPIMAT 100-20MCG INHALER 4GM INH ONE (03:40)
[2021-05-27] MEDS ORDERED: MAALOX 30 ML SUSP *UDC PO PRN (04:30)
[2021-05-27] MEDS ORDERED: ACETAMINOPHEN TAB 650MG DOSE (2X325MG) PO PRN (04:30)
[2021-05-27] MEDS ORDERED: LORazepam 0.5 MG TAB PO PRN (04:30)
[2021-05-27] MEDS ORDERED: MOM 30ML SUSPENSION UDC PO PRN (04:30)
[2021-05-27] MEDS ORDERED: traMADol 50 MG TAB PO PRN (04:30)
[2021-05-27] MEDS ORDERED: LEVALBUTEROL 1.25 MG/0.5 ML CONCENTRATE NEB NEB PRN (04:30)
--- NOTE | 2021-05-27 04:57 | HPEPDOC ---
[facility] Medical History & Physical Date of Admission May 27, 2021 Date of Service: May 27, 2021 Attending Physician: NISHA YEPEZ MD History and Physical CHIEF COMPLAINT: [81 y/o female presents with increasing sob x2 days] HISTORY OF PRESENT ILLNESS: [81 y/o female with a pmh of chf, cad s/p stents, a- fib, htn, copd on chronic 3L still smoking, ckd3, iddm2 who presents to our ED on 05/26 with a cc of increasing sob over the past two days. Patient tells me that she feels somewhat better than she did yesterday, however is still markedly sob. Patient states that her at home nebulizers provide her transient relief. Patient tells me that other than her breathing, she does not have many complaints. Patient, at the time of my exam, denies cough, sore throat, chest pain, chest tightness, abd pain, n/v/d/c, pedal edema. Notably on imaging, patient has approx [id number] mass in her lung. I discussed this finding with patient and relayed that this mass is most likely a cancer. Patient expressed understanding and wished to have an evaluation done into the mass and pursue likely chemotherapy treatment. Imaging also showing infiltrates likely indicative of pneumonia.] PAST MEDICAL HISTORY: 1. [See HPI PAST SURGICAL HISTORY: 1. [Cardiac catheterization]. 2. [Cholecystectomy]. 3. [Appendectomy 4. Unspec. hernia repair x2 5. C section x4 6. Hysterectomy 7. Breast lumpectomy 8. B/l knee arthroscopy 9. Clavicle repair]. SOCIAL HISTORY: Tobacco use:[Current smoker] ETOH: [Denies] Illicit drug use: [Denies] FAMILY HISTORY: Reviewed - none pertinent ALLERGIES: Please see below. REVIEW OF SYSTEMS: CONSTITUTIONAL: [Denies fevers, chills]. HEENT: [Denies uri type sx]. CARDIOVASCULAR: [Denies chest pain, palpitations]. RESPIRATORY: [See HPI]. GASTROINTESTINAL: [Denies abd pain, n/v/d/c]. GENITOURINARY: [Denies dysuria]. SKIN: [Denies rash]. MUSCULOSKELETAL: [Denies acute joint/back pain]. NEUROLOGICAL: [Denies syncope, paresthesias]. ENDOCRINE: [Hx of DM]. HEMATOLOGIC/LYMPHATIC: [Denies hx of vte]. HOME MEDICATIONS: Please see below. PHYSICAL EXAMINATION: VITAL SIGNS: Please see below. GENERAL APPEARANCE: [This is an alert and oriented 81 y/o female. She has noticeably increased work of breathing.]. HEENT: [No mass or lesion. EOMI. No scleral icterus. Oral mucosa moist. Voice hoarse]. CARDIOVASCULAR: [Regular rate, rhythm. No murmurs, rubs, gallops]. LUNGS: [Decreased breath sounds throughout. Scattered wheezing]. ABDOMEN: [Soft, nontender]. MUSCULOSKELETAL: [No joint deformity]. EXTREMITIES: [Trace edema to b/l lower extremities. No overlying skin changes. Pulses intact.]. NEUROLOGICAL: [Speech clear but hoarse. Patient moves all fours freely. A+Ox3. No focal deficits.]. PSYCHIATRIC: [Mood and affect appear appropriate.]. LABORATORY DATA: See below. IMAGING: [CXR: FINDINGS: Lungs: Patchy infiltrate right lower lobe. Remaining lungs clear. Pleural spaces: Unremarkable. No pleural effusion. No pneumothorax. Heart/Mediastinum: Unremarkable. No cardiomegaly. Vasculature: Uncoiled thoracic aorta. Bones/joints: Unremarkable. IMPRESSION: Patchy infiltrate right lower lobe. Chest CT: FINDINGS: Lungs: There is a solid lobular mass in the medial left apex measuring 3.2 x 2.6 x 2.6 cm. Findings consistent with malignancy. Correlation with PET imaging suggested according to Fleischner guidelines. Left lower lobe mass measures 1.3 x 0.9 x 0.6 cm. Mixed ground-glass infiltrate with parenchymal stranding in the right middle lobe and right lower lobe may represent atelectasis although an active infiltrate not excluded. Scattered subcentimeter pulmonary parenchymal nodules of uncertain significance. Pleural spaces: Small pleural based nodule in the right middle lobe measures 6 x 6 x 6 mm. Heart: There is moderate atherosclerotic calcification of the coronary arteries. Aorta: There is mild atherosclerosis in the thoracic aorta. Lymph nodes: Extensive mediastinal lymphadenopathy measuring up to 4.2 x 4 cm in the retrocaval pretracheal area, 2.9 x 1.9 cm in the left periaortic region, and 4.7 x 3.2 cm in the subcarinal region. Findings likely represents malignant adenopathy. Adrenal glands: There is bilateral adrenal hyperplasia. Bones/joints: The spine demonstrates mild degenerative changes. Soft tissues: Unremarkable. Other findings: Left suprahilar mass measures 2 x 2.6 x 1.9 cm. IMPRESSION: 1. There is a solid lobular mass in the medial left apex measuring 3.2 x 2.6 x 2.6 cm. Findings consistent with malignancy. Correlation with PET imaging suggested according to Fleischner guidelines. Multiple other pulmonary masses as described above also suspect for representing malignant foci. Multiplicity lesions suggest metastatic disease although hematogenous spread not excluded. 2. Large likely malignant lymph nodes demonstrated in the mediastinum. 3. There is bilateral adrenal hyperplasia. ] MICROBIOLOGY: Please see below. ASSESSMENT: [81 y/o female with a pmh of chf, cad s/p stents, a-fib, htn, copd on chronic 3L still smoking, ckd3, iddm2 who presents to our ED on 05/26 with a cc of increasing sob over the past two days. Notably on imaging, patient has approx [id number] mass in her lung. I discussed this finding with patient and relayed that this mass is most likely a cancer. Patient expressed understanding and wished to have an evaluation done into the mass and pursue likely chemotherapy treatment. Imaging also showing infiltrates likely indicative of pneumonia.]. . PLAN: 1. [Acute COPD exacerbation 2/2 CAP - Patient on chronic 3L o2 at home, had to be acutely increased to 4. will titrate to 88-92% - Steroids, nebs given in ED - will move to oral prednisone on the floor - scheduled duonebs, prn xopenex - incentive spirometry - rocephin/doxy for bacterial coverage of pna - admit to pcu for tx 2. Large Lung mass - Likely cancerous - Patient wishes to pursue workup and treatment per my discussion with her - Will ask day team to consult either pulm or oncology for w/u 3. CHF - patient not currently in exacerbation - continue at home torsemide 4. HTN - continue amlodipine 5. DM - sliding scale insulin - hypoglycemic protocol - continue pregabalin 6. CAD - continue isosorbide 7. GERD - continue protonix 8. Gout - continue allopurinol DVT prophylaxis - lovenox]. Vital Signs Vital Signs Date Time Temp Pulse Resp B/P (MAP) Pulse Ox O2 Delivery O2 Flow Rate FiO2 05/27/21 03:15 88 21 181/82 (115) 100 Nasal Cannula 4.0 05/27/21 02:04 97.3 Home Medications Scheduled Allopurinol (Allopurinol) 100 Mg Tab, 100 MG PO DAILY Amlodipine Besylate (Amlodipine Besylate) 5 Mg Tablet, 5 MG PO DAILY Calcitriol (Rocaltrol) 0.25 Mcg Capsule, 0.25 MCG PO DAILY Isosorbide Mononitrate (Isosorbide Mononitrate ER) 30 Mg Tab, 30 MG PO DAILY L.acidoph/L.bulg/B.bif/S.therm (Daniela-Bid Caplet) 1 Each Tablet, 1 TAB PO DAILY Pantoprazole Sodium (Pantoprazole Sodium) 40 Mg Tablet.dr, 40 MG PO DAILY Pregabalin (Lyrica) 75 Mg Capsule, 75 MG PO TID Tamsulosin Hcl (Tamsulosin HCl) 0.4 Mg Capsule, 0.4 MG PO DAILY Torsemide (Torsemide) 20 Mg Tablet, 50 MG PO BID Tramadol HCl (Tramadol HCl ER) 100 Mg Tbmp.24hr, 100 MG PO DAILY Scheduled PRN Albuterol Sulf (Albuterol Sulfate) 2.5 Mg/3 Ml Vial.neb, 1 VIAL NEB Q4H PRN for SHORTNESS OF BREATH Lorazepam (Ativan) 0.5 Mg Tablet, 0.5 MG PO BID PRN for ANXIETY Tramadol HCl (Tramadol HCl) 50 Mg Tablet, 50 MG PO QID PRN for SEVERE PAIN (PS 8-10) Miscellaneous Medications [med rec comment] pt doesn't know names of meds and no list. used external med history. pt stated last dose was friday morning 05/26/21 for all meds Allergies Coded Allergies: lisinopril (Verified Allergy, Severe, angioedema lip, 05/19/21) angioedema lip latex (Verified Allergy, Intermediate, RASH/ITCHING, 05/19/21) codeine (Verified Adverse Reaction, Mild, HEADACHE, 05/19/21) oxycodone (Verified Adverse Reaction, Mild, CONFUSION, 05/19/21) A-FIB/CHADSVASC A-FIB History Current/History of A-Fib/PAF?: No CHRISTOPHER OCONNELL May 27, 2021 04:57
[2021-05-27] MEDS ORDERED: GLUCOSE 4GM CHEW TABLET PO PRN (05:05)
[2021-05-27] MEDS ORDERED: DEXTROSE 50% 50 ML SYRINGE IV PRN (05:05)
[2021-05-27] MEDS ORDERED: GLUCAGON INJ 1MG VIAL SC PRN (05:05)
[2021-05-27] MEDS: DOXYCYCLINE HYCLATE 100 MG in D5W MINI-BAG PLUS 100 ML IV SCH ×2 (06:27→17:16)
[2021-05-27 08:57] VITALS: BP 164/94
[2021-05-27] MEDS ORDERED: TORSEMIDE 20 MG TAB PO SCH (09:00)
[2021-05-27] MEDS: ENOXAPARIN 30MG/0.3ML SYRINGE (J1650 PER 10MG) SC SCH (09:37)
[2021-05-27] MEDS: allopurinoL 100 MG TAB PO SCH (09:38)
[2021-05-27] MEDS: LACTOBACILLUS ACIDOPHILUS CAP (BACID) PO SCH (09:38)
[2021-05-27] MEDS: TAMSULOSIN 0.4 MG CAP PO SCH (09:38)
[2021-05-27] MEDS: HumaLOG INSULIN (NovoLOG) PER UNIT SC SCH ×4 (09:38→20:50)
[2021-05-27] MEDS: predniSONE 20 MG TAB PO SCH (09:38)
[2021-05-27 09:39] VITALS: BP 164/94
[2021-05-27] MEDS: ISOSORBIDE MON. (IMDUR) 30 MG XR TAB PO SCH (09:39)
[2021-05-27] MEDS: PANTOPRAZOLE 40MG TAB (PROTONIX) PO SCH (09:39)
[2021-05-27] MEDS: PREGABALIN 75 MG CAP(LYRICA) PO SCH ×3 (09:39→20:40)
[2021-05-27] MEDS: amLODIPine 5 MG TAB PO SCH (09:39)
[2021-05-27] MEDS: CALCITRIOL 0.25 MCG CAP (S0169) PO SCH (09:39)
[2021-05-27] MEDS: DOCUSATE SODIUM 100MG CAPSULE PO SCH ×2 (09:39→20:40)
[2021-05-27 10:25] LABS: BASO % 0.2 % (0.0-1.0); EOS % 0.2 % (0.0-3.0); HEMATOCRIT 42.4 % (36.0-47.0); HEMOGLOBIN 13.6 g/dl (12.0-15.5); LYMPH # 0.5 10^3/uL (1.5-5.0); MEAN CORPUSCULAR HEMOGLOBIN 31.3 pg (27.0-33.0); MEAN CORPUSCULAR HGB CONC 32.1 g/dl (32.0-36.5); MEAN CORPUSCULAR VOLUME 97.7 fl (80.0-96.0); MONO # 0.1 10^3/uL (0.0-0.8); MONO % 3.3 % (2.0-8.0); NEUTROPHILS # 3.6 10^3/uL (1.5-8.5); NEUTROPHILS % 84.6 % (36.0-66.0); PLATELET COUNT, AUTOMATED 174 10^3/uL (150-450); RED BLOOD COUNT 4.34 10^6/uL (4.00-5.40); WHITE BLOOD COUNT 4.2 10^3/uL (4.0-10.0)
[2021-05-27 10:56] LABS: ALBUMIN 2.9 GM/DL (3.2-5.2); BILIRUBIN,TOTAL 0.2 MG/DL (0.2-1.0); CALCIUM LEVEL 8.8 MG/DL (8.8-10.2); CREATININE FOR GFR 1.86 MG/DL (0.55-1.30); GLOMERULAR FILTRATION RATE 27.8 (>32); MAGNESIUM LEVEL 1.3 MG/DL (1.8-2.4); POTASSIUM SERUM 4.3 MEQ/L (3.5-5.1); TOTAL PROTEIN 6.2 GM/DL (6.4-8.2)
[2021-05-27] MEDS: IPRATROPIUM 0.5MG/ALBUTEROL 2.5MG INH SOL UD 3ML (DUONEB) NEB SCH ×3 (11:13→20:13)
[2021-05-27 11:23] LABS: ABG BASE EXCESS 7.9 (-2.0-2.0); ABG HCO3 34.3 MEQ/L (22.0-26.0); ABG O2 SATURATION 93.5 % (95.0-99.0); ABG PARTIAL PRESSURE CO2 54.7 mmHg (35.0-45.0); ABG PARTIAL PRESSURE O2 64.9 mmHg (75.0-100.0); ABG STANDARD HCO3 31.6 MEQ/L (22.0-26.0); ABG pH (ARTERIAL) 7.415 UNITS (7.350-7.450)
--- NOTE | 2021-05-27 11:38 | IPNPDOC ---
Date Seen The patient was seen on 05/27/21. Progress Note SUBJECTIVE: This is Ezekiel is an 9-year-old female with a past medical history of congestive heart failure, CAD status post stenting, A. fib, hypertension, COPD O2 dependent on 3 L at home, nicotine dependence, CKD stage III, type 2 diabetes presented to the ER complaining of worsening shortness of breath for the past 2 days. Initial work-up diagnosed her with COPD zoster patient with possible community- acquired pneumonia as well as a newly seen 3 cm diameter left apical lung mass with large likely malignant mediastinal lymph nodes on CT of the chest. No labs available from admission. Ordered panel this morning. Patient denies chest pain, palpitations, fevers, n/v/d.reports of balance issues, gait instability per Dr. Burton. OBJECTIVE PHYSICAL EXAMINATION: VITAL SIGNS: please see below General: NAD, comfortable HEENT: PERRLA, EOMI, sclerae clear Neck: supple, normal ROM, no JVD Respiratory: reduced air entry bilaterally, rhonchi in L lung chau. CVS: RRR, normal S1, S2, no murmurs Abdo: soft, no masses, no hepatosplenomegaly, BS+, no rebound tenderness Extremities: no edema, pulses 2+ MSK: no joint deformities, normal ROM Neuro: no focal neuro deficits, moving all 4 extremities, CN2-12 intact. Strength 5/5 in all 4 extremities. No nystagmus. gait not assessed. patient is somnolent in bed, asking to rest. Psych: calm, cooperative, AAO x 3 LABORATORY DATA, IMAGING STUDIES, MICROBIOLOGY: Please see below. Echocardiogram: Ordered stat on 05/27/21 to evaluate for cardiac tamponade. DVT prophylaxis ordered?: Lovenox ASSESSMENT AND PLAN: PROBLEMS: 1. Acute COPD exacerbation possible 2/2 CAP - Patient on chronic 3L o2 at home, was placed on 4L in ER. - Steroids, nebs given in ED - will move to oral prednisone on the floor - scheduled duonebs, prn xopenex - incentive spirometry - I am not convinced that this is a pna, given no leukocytosis, fever or consolidation on CT chest. - will check procalcitonin - rocephin/doxy were started on admissions, will continue until proca is pending. - admit to pcu for tx 2. Large Lung mass - Likely cancerous - Patient wishes to pursue workup and treatment per my discussion with her - pulmonology consult placed with Dr. Burton, candidate for brochoscopy - I was informed by Dr. Burton, patient may have SVC syndrome. Will avoid contrast imaging at this time 3. CHF - patient not currently in exacerbation - continue at home torsemide 4. HTN - continue amlodipine 5. DM - sliding scale insulin - hypoglycemic protocol - continue pregabalin 6. CAD - continue isosorbide 7. GERD - continue protonix 8. Gout - continue allopurinol 9. gait instability - will order CT head to r/o CVA - if negative, consider brain MRI to assess for masses. DVT prophylaxis - lovenox Dispo: pending clinical improvement. VS, I&O, 24H, Fishbone Vital Signs/I&O Vital Signs Date Time Temp Pulse Resp B/P (MAP) Pulse Ox O2 Delivery O2 Flow Rate FiO2 05/27/21 09:39 77 164/94 05/27/21 08:57 97.0 20 100 Nasal Cannula 3.0 Laboratory Data 24H LABS Laboratory Tests 2 05/27/21 08:34: Bedside Glucose (Misc Panel) 312H 05/27/21 10:15: Immature Granulocyte % (Auto) 0.7, Neutrophils (%) (Auto) 84.6H, Lymphocytes (%) (Auto) 11.0L, Monocytes (%) (Auto) 3.3, Eosinophils (%) (Auto) 0.2, Basophils (%) (Auto) 0.2, Neutrophils # (Auto) 3.6, Lymphocytes # (Auto) 0.5L, Monocytes # (Auto) 0.1, Eosinophils # (Auto) 0.0, Basophils # (Auto) 0.0, Nucleated Red Blood Cells % (auto) 0.0, Anion Gap 3L, Glomerular Filtration Rate 27.8L, Calcium Level 8.8, Magnesium Level 1.3L, Total Bilirubin 0.2, Aspartate Amino Transf (AST/SGOT) 11, Alanine Aminotransferase (ALT/SGPT) 13, Alkaline Phosphatase 111, Total Protein 6.2L, Albumin 2.9L, Albumin/Globulin Ratio 0.9L 05/27/21 11:12: Blood Gas Bicarbonate Standard 31.6H, Arterial Blood pH 7.415, Arterial Blood Partial Pressure CO2 54.7H, Arterial Blood Partial Pressure O2 64.9L, Arterial Blood Total CO2 36.0H, Arterial Blood HCO3 34.3H, Arterial Blood Base Excess 7.9H, Arterial Blood Oxygen Saturation 93.5L CBC/BMP Laboratory Tests 05/27/21 10:15 ASHISH CHAMBERS MD May 27, 2021 11:38
--- NOTE | 2021-05-27 12:23 | REP ---
INDICATION: poor balance. COMPARISON: 01/08/2020 TECHNIQUE: Axial noncontrast images from the skull base to the thoracic inlet with coronal reformations. This CT examination was performed using the following dose reduction techniques: Automated exposure control, adjustment of mA and/or kv according to the patient's size, and use of iterative reconstruction technique. FINDINGS: Atrophy with periventricular leukomalacia and microvascular ischemic changes are appreciated. The ventricles and sulci are symmetric. Larson-white differentiation is maintained. There is no evidence for acute intracranial hemorrhage, mass/mass effect, pathology or infarction. No extra-axial fluid collection. Calvarium is intact. Paranasal sinuses and mastoid air cells are clear. IMPRESSION: Atrophy and microvascular ischemic changes. No acute intracranial hemorrhage, infarction, or mass/mass effect. <Electronically signed by Rommel Hogan > 05/27/21 [id number]
[2021-05-27] MEDS: MAG SULF 1GM/100ML (MAG RUN) 1 GM in IV 1 EA IV SCH ×2 (12:30→12:31)
[2021-05-27] MEDS: traMADol ER 100MG TABLET (ULTRAM ER) PO SCH (12:30)
[2021-05-27] MEDS: TIOTROPIUM INHALER/CAPSULE (SPIRIVA) INH SCH (13:45)
[2021-05-27] MEDS: SYMBICORT 160/4.5MCG INHALER 6GM INH SCH ×2 (13:45→20:00)
--- NOTE | 2021-05-27 15:35 | CR ---
CONSULTATION DATE: 05/27/2021 HISTORY OF PRESENT ILLNESS: Cata is an 81-year-old female that presented to the Emergency Room yesterday evening because her cough was more painful. Cata has been a lifelong smoker, has been smoking for over 50 years. She states that she does not smoke that much anymore, but she still smokes on a daily basis. She has had hoarseness of her voice for the past 6 months, and has recently noticed a decrease in appetite. She states she has a cough that is mostly productive of clear mucous. She has had no increase in amount or discoloration of mucous. She has had no hemoptysis. She denies any headache or dizziness. She denies any difficulty swallowing. She states she is able to eat well but she again, has noticed decrease in her usual level of appetite. She denies any noticeable weight loss. It does not appear that she follows with a construction area manager that she is aware of. She cannot recall any recent chest imaging. She has chronic orthopnea. She has known COPD with chronic hypoxia, prescribed 3 liters of oxygen. She has a prior diagnosis of obstructive sleep apnea and has been noncompliant with therapy, stating she would not be able to wear it. She has no prior history of malignancy. She states the pain in her chest is only with coughing. There are no anginal symptoms, no neck or jaw pain and no diaphoresis. She does not experience chest discomfort with exertion. She has no pleurisy. She denies any fevers, chills or night sweats. She has a baseline essential tremor which has not changed. She has been having difficulty with balance. When I noticed the bruise around her eye, she states she has been having difficulty with balance, and she fell and hit her eye on the handle of her kitchen door. She lives alone. She has no healthcare proxy. She does have an advanced directive that states she is DNR. When I asked if she would identify someone to make decisions for her if she could not, she states that she is estranged from her children, her has passed, and that the only person she would choose is her sister. She states her name is Evangelina. She has quite a bit of difficulty with speaking. Voice is very hoarse. PAST MEDICAL HISTORY: The patient's past medical history is significant for: 1. Chronic obstructive pulmonary disease with chronic hypoxic respiratory failure and I suspect likely hypercarbic respiratory failure. 2. Obstructive sleep apnea noncompliant with therapy. 3. History of chronic kidney disease previously on dialysis. 4. Hypertension. 5. Diabetes. 6. Morbid obesity. 7. . 8. Bilateral knee surgery. 9. Bilateral shoulder repair. 10. History of atrial fibrillation and reported congestive heart failure. 11. Hysterectomy. 12. The patient denies primary history of cancer. 13. Nicotine dependence. MEDICATIONS: 1. Tylenol. 2. Milk of Magnesia. 3. Colace. 4. Mylanta. 5. Lovenox at 30 mg subcutaneously daily. 6. DuoNebs. 7. Prednisone 40 mg p.o. daily. 8. Ceftriaxone. 9. Doxycycline day number one. 10. Xopenex. 11. Allopurinol. 12. Norvasc. 13. Calcitriol. 14. Imdur. 15. Bacid. 16. Ativan. 17. Protonix. 18. Lyrica. 19. Flomax. 20. Ultram. 21. Lispro insulin. 22. Demadex. ALLERGIES: 1. Codeine. 2. Latex. 3. Lisinopril. 4. Oxycodone. FAMILY HISTORY: The patient states she cannot recall her family history. She believes her parents had some type of cancer. SOCIAL HISTORY: The patient is an active smoker. She has over a 50-pack year yesterday of smoking. She lives alone. She does not consume any alcohol. No illicit drug use. She has not had any recent travel. She has not pets at home. She states she lives in an apartment building but does live alone. 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 She cannot recall any occupational exposures. REVIEW OF SYSTEMS: CONSTITUTIONAL: Positive for decreased appetite. No fevers, chills. Denies weight loss. HEENT: No change in vision, wears glasses. No change in hearing. She denies any difficulty with swallowing. CARDIAC: She has orthopnea, no lower extremity edema. No symptoms of angina. No paroxysmal or nocturnal dyspnea. No symptoms of claudication. PULMONARY: As per HPI. No history of tuberculosis or tuberculosis contacts. Negative [place] sign. GI: No nausea, vomiting. Denies any reflux. Denies any abdominal pain. She denies any blood in stool or change in bowel habits. No diarrhea or chronic constipation. GENITOURINARY: She states occasionally she will have burning or dysuria but she does not have this currently. No nocturia, hematuria or history of nephrolithiasis. ENDOCRINE: She does have diabetes. No history of thyroid disease. Denies recent hair loss or hot and cold intolerance. NEUROLOGIC: Has a tremor. Has been having difficulty with balance, but denies headaches, change in vision. She denies history of stroke. She denies unilateral weakness. PSYCH: She denies anxiety and depression. No suicidal ideation. SLEEP: Has obstructive sleep apnea as mentioned above. Has excessive daytime somnolence and snoring. SKIN: She denies any new rashes. Has multiple seborrheic keratoses over her extremities. HEME: She does have easy bruising without easy bleeding. She has not required blood transfusions in some time according to the patient. PHYSICAL EXAMINATION: VITAL SIGNS: Temperature is 97.0, pulse is 77, respiratory rate is 20, blood pressure is 164.94, oxygen saturation is 100% on 3 liters. GENERAL APPEARANCE: The patient is awake, alert, voice is very soft and hoarse. Speech is non-tangential. The patient did appear anxious at the end of our conversation. HEENT: The patient is edentulous, Mallampati 4, has a bruise under her right eye. She is wearing glasses. No evidence of epistaxis. Tongue is midline. NECK: Supple. No tracheal deviation or mass. No thyromegaly. There are increased supraclavicular fat pads. LYMPH: No cervical or supraclavicular axillary adenopathy. CARDIAC: Distant S1, S2, without audible murmurs, rubs or gallops. No discernible elevated JVP. No peripheral edema. PULMONARY: Rales at the right base. Otherwise clear to auscultation without rhonchi or wheeze. There is a slight prolongation of the expiratory phase and there is increased AP diameter with thoracic kyphosis. ABDOMEN: Obese, soft, nontender, nondistended. No hepatosplenomegaly, masses or hernia. EXTREMITIES: No clubbing, cyanosis, or edema. SKIN: Multiple skin lesions over the lower extremities and arms of varying stages, more seborrheic keratosis. She denies any new lesions. She has some bruising over her hands. NEUROLOGICAL: She has a resting essential tremor. No evidence of unilateral weakness. Pupils are equal and reactive to light. MUSCULOSKELETAL: Appears normal for stated age. LABORATORY EVALUATION: Sodium 136, potassium 4.3, chloride 96, bicarbonate 37, BUN of 38, creatinine of 1.86, GFR is estimated at 27.8 with a glucose of 264, albumin of 2.9, white count of 4.2, hemoglobin 13.6, hematocrit of 42.4 with a platelet count of 174. IMAGING DATA: Chest CT shows multiple abnormalities. The largest abnormality is actually a lulu mass in the pretracheal area on the right, just under 5 cm. The subcarinal node is also very enlarged at 5 cm. There are two left upper lobe lesions one more apical, both proximal, measuring over 2 cm. There is also a left lower lobe lesion measuring 1.3 cm on image 65. There are nonspecific abnormalities in the right middle lobe suggestive of infiltrate. ASSESSMENT: 1. Abnormal chest CT likely primary malignancy, possible pending SVC syndrome, however patient was unable to receive contrast for the ct scan because of her renal impairment. There are no clinical signs of SVC syndrome. Surprisingly, she also has involvement of the other side which could be the reason for her hoarseness of voice and involvement of the laryngeal nerve. I have offered the patient bronchoscopy, discussed with her the risks and benefits of bronchoscopy in detail including the risk of anesthesia, the risk of bleeding, pneumothorax, , cough, fever and sore throat. I also discussed the possibility of injury to surrounding structures. I believe with the use of linear endobronchial ultrasound, would be the best course of action for biopsy. The patient got very nervous. I have explained that although this is very time sensitive, especially with the possibility of pending SVC syndrome, that I would give her time to think about whether or not she wanted to have this procedure done. In the meantime, I would recommend imaging of the brain because of her recent balance issues to rule out any metastatic disease. 2. Chronic obstructive pulmonary disease we will obtain arterial blood gas to look for chronic hypercarbia given her elevated bicarbonate. I suspect she may be a CO2 retainer, although she is on chronic diuretic therapy. I will add long acting inhaled therapy. 3. Nicotine dependence likely contributing to number one. Should be counseled on smoking cessation prior to leaving. 4. Advanced directives would have the patient fill out living will and identify a healthcare proxy in writing. Currently she does have a DNR on the chart. HELEN
[2021-05-27 15:45] VITALS: BP 138/60
--- NOTE | 2021-05-27 17:10 | ECHO ---
ECHOCARDIOGRAM DATE OF PROCEDURE: 05/27/2021 Age: Gender: Female Height: 153 cm Weight: 80 kg REFERRING PHYSICIAN: Chaitanya Fuentes M.D. INDICATION: Pericardial effusion. MEASUREMENTS: IVS 1.0 cm LV 4.7 cm LVPW 1.3 cm RV 2.8 cm Aorta 2.7 cm LA 4.4 cm IVC 1.6 cm Mitral E wave velocity 53 A wave 73 E prime septal 4.3 E prime lateral 5.4 FINDINGS: This study is of fair technical quality with challenging visualization. Patient is in sinus rhythm with narrow QRS complex. Left ventricle is normal size and probably normal systolic function based on limited views. I do not appreciate any definite wall motion abnormality. Estimated left ventricular ejection fraction (LVEF) approximately 60-65%. Right ventricle appears normal size. Left atrium is mildly enlarged. Right atrium appears normal. Aortic, mitral and tricuspid valves were reasonably well seen. Aortic valve is sclerotic. The remaining valves appear normal. Pulmonic valve was not well visualized. Pericardial fat pad, but no effusion is noted. Inferior vena cava is normal size. Aortic root is normal. Aortic arch and abdominal aorta were not visualized. Doppler interrogation reveals no significant aortic, mitral and tricuspid valvular disease. Mitral inflow pattern and tissue Doppler imaging of mitral annulus revealed grade 1 diastolic dysfunction. CONCLUSIONS: 1. Study is of fair technical quality. Underlying sinus rhythm. 2. Normal left ventricular (LV) size with borderline left ventricular hypertrophy (LVH) and likely normal LV systolic function. Grade 1 diastolic dysfunction. 3. Aortic sclerosis but no stenosis or insufficiency. 4. Normal function of mitral and tricuspid valves. 5. Pericardial fat pad, but no visualized effusion.
[2021-05-27] MEDS: TORSEMIDE (DEMADEX) 50 MG PER 1/2 TAB PO SCH (17:15)
[2021-05-27 19:49] VITALS: BP 125/60
[2021-05-27] MEDS: cefTRIAXone SOD 1 GM in D5W MINI-BAG PLUS 50 ML IV SCH (20:40)
[2021-05-28] VITALS (11 sets, daily range): BP systolic 119–136; BP diastolic 56–63; O2SAT 85–100
[2021-05-28] MEDS: IPRATROPIUM 0.5MG/ALBUTEROL 2.5MG INH SOL UD 3ML (DUONEB) NEB SCH ×4 (02:00→20:19)
[2021-05-28] MEDS: DOXYCYCLINE HYCLATE 100 MG in D5W MINI-BAG PLUS 100 ML IV SCH ×2 (05:25→17:17)
[2021-05-28 05:39] LABS: HEMATOCRIT 40.7 % (36.0-47.0); HEMOGLOBIN 13.2 g/dl (12.0-15.5); MEAN CORPUSCULAR HGB CONC 32.4 g/dl (32.0-36.5); MEAN CORPUSCULAR VOLUME 98.5 fl (80.0-96.0); PLATELET COUNT, AUTOMATED 177 10^3/uL (150-450); RED BLOOD COUNT 4.13 10^6/uL (4.00-5.40); WHITE BLOOD COUNT 9.5 10^3/uL (4.0-10.0)
[2021-05-28 06:00] LABS: CALCIUM LEVEL 9.4 MG/DL (8.8-10.2); CREATININE FOR GFR 1.92 MG/DL (0.55-1.30); GLOMERULAR FILTRATION RATE 26.8 (>32); MAGNESIUM LEVEL 1.9 MG/DL (1.8-2.4); POTASSIUM SERUM 4.6 MEQ/L (3.5-5.1)
[2021-05-28] MEDS ORDERED: NS 1,000 ML IV SCH (06:50)
[2021-05-28] MEDS: SYMBICORT 160/4.5MCG INHALER 6GM INH SCH ×2 (08:00→20:00)
[2021-05-28] MEDS: TIOTROPIUM INHALER/CAPSULE (SPIRIVA) INH SCH (08:00)
--- NOTE | 2021-05-28 08:25 | REP ---
INDICATION: juvenal COMPARISON: None TECHNIQUE: Real time jones scale ultrasound examination using curved array transducer. FINDINGS: Bilateral kidneys are normal in reniform shape without hydronephrosis. Right kidney measures 11.1 x 4.4 x 5.2 cm and includes multiple simple and complex cysts including 2.8 cm upper pole complex cyst with central partially calcified structure as well as 2.3 cm lower pole simple cyst. Left kidney measures 11.6 x 4.7 x 5.3 cm and includes multiple simple and complex cysts including 2.8 cm upper pole cyst and 2.5 cm lower pole cyst. Bladder is unremarkable, but under distended. IMPRESSION: 1. Simple and complex renal cysts suggested. No prior ultrasound or CT examination for comparison. 2. With regards to acute renal insufficiency, there is no evidence for hydronephrosis. <Electronically signed by Rommel Hogan > 05/28/21 [id number]
[2021-05-28] MEDS: traMADol ER 100MG TABLET (ULTRAM ER) PO SCH (08:28)
[2021-05-28] MEDS: predniSONE 20 MG TAB PO SCH (08:29)
[2021-05-28] MEDS: ENOXAPARIN 30MG/0.3ML SYRINGE (J1650 PER 10MG) SC SCH (08:29)
[2021-05-28] MEDS: LACTOBACILLUS ACIDOPHILUS CAP (BACID) PO SCH (08:29)
[2021-05-28] MEDS: DOCUSATE SODIUM 100MG CAPSULE PO SCH ×2 (08:29→21:00)
[2021-05-28] MEDS: HumaLOG INSULIN (NovoLOG) PER UNIT SC SCH ×4 (08:29→21:00)
[2021-05-28] MEDS: ISOSORBIDE MON. (IMDUR) 30 MG XR TAB PO SCH (08:29)
[2021-05-28] MEDS: TAMSULOSIN 0.4 MG CAP PO SCH (08:30)
[2021-05-28] MEDS: PREGABALIN 75 MG CAP(LYRICA) PO SCH ×3 (08:30→21:05)
[2021-05-28] MEDS: amLODIPine 5 MG TAB PO SCH (08:30)
[2021-05-28] MEDS: allopurinoL 100 MG TAB PO SCH (08:30)
[2021-05-28] MEDS: CALCITRIOL 0.25 MCG CAP (S0169) PO SCH (08:30)
[2021-05-28] MEDS: PANTOPRAZOLE 40MG TAB (PROTONIX) PO SCH (08:30)
[2021-05-28 10:10] LABS: INR 1.02; PROTHROMBIN TIME 13.8 SECONDS (12.7-14.5)
[2021-05-28 10:11] LABS: PARTIAL THROMBOPLASTIN TIME 30.6 SECONDS (25.9-37.0)
--- NOTE | 2021-05-28 13:53 | CCN ---
CRITICAL CARE NOTE DATE: 05/28/2021 SUBJECTIVE: Patient was seen and examined this morning during bedside rounds. This morning patient reports that her chest pain has improved. She continues to have cough productive of mostly clear mucus which is unchanged. She denies any worsening shortness of breath currently. No fever overnight. She continues to have hoarseness of her voice which she has had for several months now. Patient reports feeling anxious after her discussion yesterday about the possibility for a procedure. OBJECTIVE: VITALS: Temperature 96.3, pulse 57, respirations 22, blood pressure 134/62, O2 sat 90 to 99% on 2 liters nasal cannula. GENERAL: Patient is an obese female. She is sitting in the chair awake, alert, and oriented x3. She has a very soft and hoarse voice. Patient does appear intermittently anxious and tremulous. HEENT: Normocephalic. She does have ecchymosis under her right eye. Pupils reactive to light bilaterally. Moist mucous membranes. Patient is edentulous. Mallampati class IV. NECK: Supple. Trachea is midline. Unable to clearly appreciate any cervical adenopathy. CARDIAC: Normal S1 and S2 with a faint murmur auscultated. No significant JVD. PULMONARY: Mildly diminished breath sounds bilaterally with crackles noted, more at the right base. No significant wheezing. ABDOMEN: Obese, soft, nontender, nondistended. No masses palpated. EXTREMITIES: There is no lower extremity edema in the bilateral lower extremities. There are multiple skin lesions in the lower extremities as well as arms, appears to be more seborrheic keratosis. Patient has resting essential tremor noted chronically. LABORATORY DATA: WBC 9.5, hemoglobin 13.2, platelets 177. Chemistry: Sodium 138, potassium 4.6, chloride 97, bicarb 36, BUN 42, creatinine 1.92, glucose 137. ABG on admission: pH 7.415, pCO2 34.7, pO2 64.9. Head CT shows no obvious metastatic lesions. There are chronic microvascular changes noted. ASSESSMENT AND PLAN: 1. Ms. Falcon is an 81-year-old female with history of COPD with chronic hypoxemic respiratory failure on 2 liters nasal cannula oxygen, HOWARD controlled with CPAP, history of CKD, hypertension, diabetes, and nicotine dependence who presented with complaints of chest pain with coughing. Patient also reports history of some chronic cough productive of clear mucus as well as evidence in the past six months or so of hoarseness and loss of her voice. Her CT of the chest on admission was abnormal and in particular of concern with two left upper lobe lesions that were both proximal, one was more apical, measuring over 2 cm. There was also nodular opacity and infiltrate in the right middle lobe concerning for possible pneumonia. Patient also had significant lulu mass in the right paratracheal region measuring just under 5 cm as well as a significantly enlarged subcarinal lymph node. With the findings on imaging, there was concern for malignancy with the primary lung process. There was also concern for development of possible SVC, although patient clinically does not appear to have any symptoms consistent with SVC. Her hoarseness of voice is likely due to compression of her recurrent laryngeal nerve. a. Discussed with the patient again today about her imaging results and the concern for malignancy. We did discuss that in order to diagnose she would need bronchoscopy, in particular with EBUS and FNA of her lymph nodes. We did discuss the risk of the bronchoscopy including risk with general anesthesia as well as risk with bleeding, pneumothorax, and infection and prolonged MV. Patient is very anxious still about procedures but she does report that if this were to be malignancy that she would pursue treatment with chemotherapy and radiation. We, therefore, discussed that in order to get treatment she does need an actual diagnosis, and so she is now agreeable for proceeding with bronchoscopy under general anesthesia. b. Will keep patient n.p.o. after midnight and will hold her morning Lovenox. c. Will check coags today for procedure. 2. COPD with history of chronic hypoxemic respiratory failure on nasal cannula oxygen. Patient likely with pneumonia with infiltrate noted in the right lung. a. Will continue with antibiotics with ceftriaxone and azithromycin. Will continue with prednisone for a possible acute COPD exacerbation. b. Continue with inhalers and nebulized bronchodilators. c. Continue with nasal cannula oxygen to maintain O2 sat above 88%. 3. Nicotine dependence. a. Continue with smoking cessation and with nicotine patch if needed. CODE STATUS: DNR/DNI. Patient had previously identified her son as her health care proxy. However, he had changed his number, and she is unable to reach him. She states she would want her brother, Ray, to be her health care proxy instead. His number is [phone]. [facility]
--- NOTE | 2021-05-28 14:29 | IPNPDOC ---
Date Seen The patient was seen on 05/28/21. Progress Note SUBJECTIVE: Patient was seen examined at bedside. Appears to be visibly anxious and concerned. She is not acutely short of breath. Denies any chest pain palpitations fevers chills nausea vomiting or diarrhea. She continues to have a productive cough. OBJECTIVE PHYSICAL EXAMINATION: VITAL SIGNS: please see below General: NAD, comfortable HEENT: PERRLA, EOMI, sclerae clear Neck: supple, normal ROM, no JVD Respiratory: reduced air entry bilaterally, rhonchi in L lung chau. CVS: RRR, normal S1, S2, no murmurs Abdo: soft, no masses, no hepatosplenomegaly, BS+, no rebound tenderness Extremities: no edema, pulses 2+ MSK: no joint deformities, normal ROM Neuro: no focal neuro deficits, moving all 4 extremities, CN2-12 intact. Strength 5/5 in all 4 extremities. No nystagmus. gait not assessed. patient is somnolent in bed, asking to rest. Psych: calm, cooperative, AAO x 3 LABORATORY DATA, IMAGING STUDIES, MICROBIOLOGY: Please see below. Echocardiogram: Ordered stat on 05/27/21 to evaluate for cardiac tamponade. DVT prophylaxis ordered?: Lovenox ASSESSMENT AND PLAN: PROBLEMS: 1. Acute COPD exacerbation possible 2/2 CAP - Patient on chronic 3L o2 at home, was placed on 4L in ER. - Steroids, nebs given in ED - will move to oral prednisone on the floor - scheduled duonebs, prn xopenex - incentive spirometry - procal < 0.05, however as patient is in COPD exacerbation with productive cough, will c/w ceftriaxone and doxycycline. - c/w spiriva. c/w symbicort. 2. Large Lung mass - Likely cancerous - Patient wishes to pursue workup and treatment per my discussion with her - pulmonology consult placed with Dr. Burton, candidate for brochoscopy - I was informed by Dr. Burton, patient may have SVC syndrome. - reviewed progress note from Dr. Hargrove. Plan for brochoscopy in AM. - no clinical signs or symptoms of SVC. JIM on CKD 3 - Cr slowly trending up - UA negative - renal US without acute findings 3. CHF - patient not currently in exacerbation. BNP 800. - continue at home torsemide 4. HTN - continue amlodipine 5. DM - sliding scale insulin - hypoglycemic protocol - continue pregabalin 6. CAD - continue isosorbide 7. GERD - continue protonix 8. Gout - continue allopurinol 9. gait instability - CT head without acute findings - MRI was ordered to assess for presence of metastatic lesions, but patient refused due to anxiety and claustrophobia DVT prophylaxis - lovenox Dispo: pending clinical improvement. Patient is interested in proceeding with chemotherapy ration therapy for lung cancer. Is that she is willing to proceed with bronchoscopy per Dr. Hargrove. DNR/DNI status. Wishes her brother Ray to be her healthcare proxy. . VS, I&O, 24H, Fishbone Vital Signs/I&O Vital Signs Date Time Temp Pulse Resp B/P (MAP) Pulse Ox O2 Delivery O2 Flow Rate FiO2 05/28/21 12:00 96.8 67 24 119/57 (77 91 Nasal Cannula 2.0 I&O- Last 24 Hours up to 6 AM 05/28/21 05:59 Intake Total 570 ml Balance 570 ml Laboratory Data 24H LABS Laboratory Tests 2 05/27/21 16:38: Bedside Glucose (Misc Panel) 207H 05/27/21 20:34: Bedside Glucose (Misc Panel) 238H 05/28/21 05:11: Nucleated Red Blood Cells % (auto) 0.0, Anion Gap 5L, Glomerular Filtration Rate 26.8L, Calcium Level 9.4, Magnesium Level 1.9 05/28/21 09:48: Prothrombin Time 13.8, Prothromb Time International Ratio 1.02, Activated Partial Thromboplast Time 30.6, UZ-Njn-A-Type Natriuretic Peptide 801H 05/28/21 10:15: Urine Color YELLOW, Urine Appearance CLEAR, Urine pH 5.0, Urine Specific Thornton 1.009, Urine Protein NEGATIVE, Urine Glucose (UA) NEGATIVE, Urine Ketones NEGATIVE, Urine Blood NEGATIVE, Urine Nitrite NEGATIVE, Urine Bilirubin NEGATIVE, Urine Urobilinogen 0.2, Urine Leukocyte Esterase NEGATIVE, Urine WBC (Auto) 0, Urine RBC (Auto) 1, Urine Hyaline Casts (Auto) 0, Urine Bacteria (Auto) NEGATIVE, Urine Squamous Epithelial Cells 1, Urine Sperm (Auto) 05/28/21 11:44: Bedside Glucose (Misc Panel) 188H CBC/BMP Laboratory Tests 05/28/21 05:11 ASHISH CHAMBERS MD May 28, 2021 14:29
[2021-05-28] MEDS: TORSEMIDE (DEMADEX) 50 MG PER 1/2 TAB PO SCH (19:44)
[2021-05-28] MEDS: cefTRIAXone SOD 1 GM in D5W MINI-BAG PLUS 50 ML IV SCH (21:04)
[2021-05-29] VITALS (10 sets, daily range): BP systolic 131–160; BP diastolic 64–85; O2SAT 93–99
[2021-05-29] MEDS: IPRATROPIUM 0.5MG/ALBUTEROL 2.5MG INH SOL UD 3ML (DUONEB) NEB SCH ×3 (02:00→13:20)
[2021-05-29] MEDS: DOXYCYCLINE HYCLATE 100 MG in D5W MINI-BAG PLUS 100 ML IV SCH (05:00)
[2021-05-29 05:02] LABS: HEMATOCRIT 39.1 % (36.0-47.0); HEMOGLOBIN 12.6 g/dl (12.0-15.5); MEAN CORPUSCULAR HEMOGLOBIN 31.8 pg (27.0-33.0); MEAN CORPUSCULAR HGB CONC 32.2 g/dl (32.0-36.5); MEAN CORPUSCULAR VOLUME 98.7 fl (80.0-96.0); PLATELET COUNT, AUTOMATED 175 10^3/uL (150-450); RED BLOOD COUNT 3.96 10^6/uL (4.00-5.40); WHITE BLOOD COUNT 8.8 10^3/uL (4.0-10.0)
[2021-05-29 05:25] LABS: CALCIUM LEVEL 8.6 MG/DL (8.8-10.2); CREATININE FOR GFR 1.83 MG/DL (0.55-1.30); GLOMERULAR FILTRATION RATE 28.3 (>32); MAGNESIUM LEVEL 1.5 MG/DL (1.8-2.4); POTASSIUM SERUM 4.2 MEQ/L (3.5-5.1)
[2021-05-29] MEDS: HumaLOG INSULIN (NovoLOG) PER UNIT SC SCH ×2 (07:30→12:00)
[2021-05-29] MEDS: SYMBICORT 160/4.5MCG INHALER 6GM INH SCH (07:53)
[2021-05-29] MEDS: TIOTROPIUM INHALER/CAPSULE (SPIRIVA) INH SCH (07:54)
[2021-05-29] MEDS ORDERED: LIDOCAINE 2% 100MG/5ML SDV (FOR ANES.) As Ordered ONE (07:55)
[2021-05-29] MEDS ORDERED: fentaNYL 100 MCG/2 ML INJECTION (J3010) As Ordered ONE (07:55)
[2021-05-29] MEDS ORDERED: propofoL 200 MG/20 ML VIAL As Ordered ONE (07:55)
[2021-05-29] MEDS ORDERED: ROCURONIUM BROMIDE 50 MG/5 ML VIAL As Ordered ONE (07:55)
[2021-05-29] MEDS ORDERED: ONDANSETRON 4MG/2ML VIAL As Ordered ONE (07:55)
[2021-05-29] MEDS ORDERED: SUGAMMADEX SODIUM 500 MG/5 ML VIAL (BRIDION) As Ordered ONE (07:55)
[2021-05-29] MEDS ORDERED: dexameTHASONE 4 MG/ML 1ML VIAL (J1100 PER 1MG) As Ordered ONE (07:55)
[2021-05-29] MEDS ORDERED: EPINEPHrine 1MG/10ML SYRINGE 1.5IN As Ordered ONE (09:13)
[2021-05-29] MEDS ORDERED: THROMBIN SOLN 5,000 UNITS VIAL As Ordered ONE (09:13)
[2021-05-29] MEDS ORDERED: CETACAINE SPRAY 5GM As Ordered ONE (09:13)
[2021-05-29] MEDS ORDERED: MAGNESIUM OXIDE 400MG TAB (MAG-OX) PO ONE (09:30)
[2021-05-29] MEDS ORDERED: ETOMIDATE INJ 20MG/10ML VIAL As Ordered ONE (09:34)
[2021-05-29] MEDS ORDERED: ePHEDrine SULFATE 25 MG/5 ML(5MG/ML) SYRINGE As Ordered ONE (09:58)
[2021-05-29] MEDS ORDERED: PHENYLephrine 500MCG 5ML (100MCG/ML) SYRINGE As Ordered ONE (09:58)
--- NOTE | 2021-05-29 10:04 | DS.PDOC ---
Discharge Summary General Date of Admission May 27, 2021 at 04:30 Date of Discharge 05/29/21 Attending Physician: NOÉ MCCALLUM MD Discharge Summary PROCEDURES PERFORMED DURING STAY: [None]. ADMITTING DIAGNOSES: 1. CHF 2. COPD 3. A-fib 4. HTN 5. CKD3 6. type 2 Diabetes 7. CAD with stents placed 8. Peripheral vascular disease with stents DISCHARGE DIAGNOSES: 1. Lung mass suspicious for cancer 2. CHF 3. COPD 4. A-fib 5. HTN 6. CKD3 7. type 2 Diabetes 8. CAD with stents placed 9. Peripheral vascular disease with stents COMPLICATIONS/CHIEF COMPLAINT: Shortness of breath HISTORY OF PRESENT ILLNESS: Pt was brought to the ER by EMS for difficulty breathing. On imaging lung mass was found in the Left upper lobe. HOSPITAL COURSE: Patient was admitted for management of COPD exacerbation and evaluation of lung mass. For COPD patient's at home Salmeterol was D/C and patient was started on prednisone. Patient's other at home meds for COPD were continued (Spiriva and Symbicort). Patient CXR and CT showed signs of infiltrate so the patient was started on ceftriaxone and doxycycline for patchy infiltrate in the RLL. Patient is afebrile, no elevated WBC count, normal HR, normal RR, and procalcitonin <.05. Chest CT findings were attributed to CAP. Patient was discharged on Ceftriaxone and doxycycline. Patient's COPD slowly got better during hospital stay, Patient said she was at her normal baseline difficulty breathing the morning of her discharge. Bronchoscopy with biopsy was performed by pulmonology consult for the lung mass today. Patient will be informed of the results and possible treatment strategies outpatient. *Pt has documented history of Afib on previous admissions. After speaking with the Pts senior director marketing Dr. Sanchez, who notes that the patient has not been seen for the last two years. His office says that the patient's Afib was never seen by them and that her rhythm was found to be normal sinus rhythm with multiple PACs. On EKG reviewd from current and until last admission in march the patient did not have any instances of Afib identified. Because of this the patient will not be discharged on oral anticoagulants. DISCHARGE MEDICATIONS: Please see below. ALLERGIES: Please see below. Review of systems: Pt denies headache, chest pain, palpitations, nuchal rigidity, SOB, dyspnea, ABD pain, urinary pain, numbness, tingling, or N/V. PHYSICAL EXAMINATION ON DISCHARGE: VITAL SIGNS: Please see below. GENERAL: No fever or chills. HEENT: No visible thyroid or lymph node enlargement. CARDIOVASCULAR EXAMINATION: Normal S1 and S2. No extra heart sounds or murmurs. RESPIRATORY EXAMINATION: BL normal and equal breath sounds. ABDOMINAL EXAMINATION: No tenderness on palpation. EXTREMITIES: No edema of the legs. Patient has diffuse superficial scarring all over her legs. Patient says that this has been there for a long time. Does not know what caused it. Patient was given stents in the past in her legs for Chronic venous insufficiency. NEUROLOGICAL EXAMINATION: No weakness or loss of sensation past baseline. PSYCHIATRIC EXAMINATION: Alert and oriented*3 LABORATORY DATA: Please see below. New IMAGING: CXR 05/29/21 As reported as: Patient was admitted for management of COPD exacerbation and evaluation of lung mass. PROGNOSIS: fair ACTIVITY: As tolerated. DIET: Sodium restriction for HTN. DISCHARGE PLAN: Patient should continue dose of doxycycline and cefdinir for 5 days. Patients should complete prednisone taper. Continue the rest of at home medications. DISPOSITION: Discharged home. ITEMS TO FOLLOWUP ON ON OUTPATIENT: 1. Have patient follow up with PCP in 7 days. 2. Have patient follow up with pulmonology when biopsy results from bronchoscopy are read. 3. Patient has been advised to return to the ER if they experience any problems DISCHARGE CONDITION: Stable. TIME SPENT ON DISCHARGE: 45 minutes. Vital Signs/I&Os Vital Signs Date Time Temp Pulse Resp B/P (MAP) Pulse Ox O2 Delivery O2 Flow Rate FiO2 05/29/21 08:00 2.0 05/29/21 08:00 97.3 70 20 160/71 (100) 96 Nasal Cannula I&O- Last 24 Hours up to 6 AM 05/29/21 06:00 Intake Total 1970 ml Output Total 850 ml Balance 1120 ml Laboratory Data Labs 24H Laboratory Tests 2 05/28/21 10:15: Urine Color YELLOW, Urine Appearance CLEAR, Urine pH 5.0, Urine Specific [place] 1.009, Urine Protein NEGATIVE, Urine Glucose (UA) NEGATIVE, Urine Ketones NEGATIVE, Urine Blood NEGATIVE, Urine Nitrite NEGATIVE, Urine Bilirubin NEGATIVE, Urine Urobilinogen 0.2, Urine Leukocyte Esterase NEGATIVE, Urine WBC (Auto) 0, Urine RBC (Auto) 1, Urine Hyaline Casts (Auto) 0, Urine Bacteria (Auto) NEGATIVE, Urine Squamous Epithelial Cells 1, Urine Sperm (Auto) 05/28/21 11:44: Bedside Glucose (Misc Panel) 188H 05/28/21 17:11: Bedside Glucose (Misc Panel) 237H 05/28/21 20:54: Bedside Glucose (Misc Panel) 190H 05/29/21 04:48: Nucleated Red Blood Cells % (auto) 0.0, Anion Gap 4L, Glomerular Filtration Rate 28.3L, Calcium Level 8.6L, Magnesium Level 1.5L CBC/BMP Laboratory Tests 05/29/21 04:48 FSBS Laboratory Tests Test 05/28/21 11:44 05/28/21 17:11 05/28/21 20:54 Range/Units Bedside Glucose (Misc Panel) 188 237 190 83-110 MG/DL Discharge Medications Scheduled Allopurinol (Allopurinol) 100 Mg Tab, 100 MG PO DAILY, (Reported) Amlodipine Besylate (Amlodipine Besylate) 5 Mg Tablet, 5 MG PO DAILY, (Reported) Aspirin (Aspirin) 81 Mg Tab.chew, 1 TAB PO DAILY for pain Calcitriol (Rocaltrol) 0.25 Mcg Capsule, 0.25 MCG PO DAILY, (Reported) Cefdinir (Cefdinir) 300 Mg Capsule, 300 MG PO BID Doxycycline Monohydrate (Doxycycline) 100 Mg Capsule, 1 CAP PO BID Isosorbide Mononitrate (Isosorbide Mononitrate ER) 30 Mg Tab, 30 MG PO DAILY, (Reported) L.acidoph/L.bulg/B.bif/S.therm (Daniela-Bid Caplet) 1 Each Tablet, 1 TAB PO DAILY, (Reported) Pantoprazole Sodium (Pantoprazole Sodium) 40 Mg Tablet.dr, 40 MG PO DAILY, (Reported) Prednisone (Prednisone) 10 Mg Tablet, 10 MG PO TAPER Take 4 tabs daily x 3 days, then 3 tabs daily x 3 days, then 2 tabs daily x 3 days, then 1 tab daily x 3 days and stop Pregabalin (Lyrica) 75 Mg Capsule, 75 MG PO TID, (Reported) Tamsulosin Hcl (Tamsulosin HCl) 0.4 Mg Capsule, 0.4 MG PO DAILY, (Reported) Torsemide (Torsemide) 20 Mg Tablet, 50 MG PO BID, (Reported) Tramadol HCl (Tramadol HCl ER) 100 Mg Tbmp.24hr, 100 MG PO DAILY, (Reported) Scheduled PRN Albuterol Sulf (Albuterol Sulfate) 2.5 Mg/3 Ml Vial.neb, 1 VIAL NEB Q4H PRN for SHORTNESS OF BREATH, (Reported) Lorazepam (Ativan) 0.5 Mg Tablet, 0.5 MG PO BID PRN for ANXIETY, (Reported) Tramadol HCl (Tramadol HCl) 50 Mg Tablet, 50 MG PO QID PRN for SEVERE PAIN (PS 8-10), (Reported) Miscellaneous Medications [med rec comment] , (Reported) pt doesn't know names of meds and no list. used external med history. pt stated last dose was friday morning 05/26/21 for all meds Allergies Coded Allergies: lisinopril (Verified Allergy, Severe, angioedema lip, 05/19/21) angioedema lip latex (Verified Allergy, Intermediate, RASH/ITCHING, 05/19/21) codeine (Verified Adverse Reaction, Mild, HEADACHE, 05/19/21) oxycodone (Verified Adverse Reaction, Mild, CONFUSION, 05/19/21) GME ATTESTATION GME ATTESTATION My faculty preceptor for this patient encounter was physically present during the encounter and was fully available. All aspects of the patient interview, examination, medical decision making process, and medical care plan development were reviewed and approved by the faculty preceptor. The faculty preceptor is aware and concurs with the plan as stated in the body of this note and will attest to such by his/her cosignature. ATTENDING NOTE I, Noé Mccallum, have independently examined this patient and performed my own physical exam, as well as reviewed the documentation and edited where necessary. I have discussed in detail with the resident / student the findings and plan of treatment as documented by the resident / student and edited their note. I agree with their findings and treatment plan and have edited their documentation. I will continue to follow the patient during this hospital stay. Time spent on discharge 35 minutes LINDA NOVAK S-3 May 29, 2021 10:04 NOÉ MCCALLUM MD May 29, 2021 16:22
[2021-05-29] MEDS ORDERED: oxyCODONE 5MG TAB PO PRN (10:50)
[2021-05-29] MEDS ORDERED: LR 1,000 ML IV SCH (10:50)
[2021-05-29] MEDS ORDERED: ONDANSETRON 4MG/2ML VIAL IV PRN (10:50)
[2021-05-29] MEDS ORDERED: fentaNYL 100 MCG/2 ML INJECTION (J3010) IV PRN (10:50)
--- NOTE | 2021-05-29 10:52 | ROOR ---
Patient Name: Cata Falcon Procedure Date: 05/29/2021 9:11 AM Date of : 1940 Admit Type: Inpatient Age: 81 Note Status: Finalized Attending MD: Danielle Hargroev MD Procedure: Bronchoscopy Indications: Left upper lobe nodule, Mediastinal adenopathy, Paratracheal adenopathy Providers: Danielle Hargrove MD (Doctor) Referring MD: Chaitanya Fuentes Md (Referring MD) Requesting Physician: Medicines: General Anesthesia, Cetacaine topical Complications: No immediate complications. Estimated blood loss: Minimal Procedure: Pre-Anesthesia Assessment: - Prior to the procedure, a History and Physical was performed, and patient medications and allergies were reviewed. The patient's tolerance of previous anesthesia was also reviewed. The risks and benefits of the procedure and the sedation options and risks were discussed with the patient. All questions were answered, and informed consent was obtained. Prior Anticoagulants: The patient has taken Lovenox (enoxaparin), last dose was 1 day prior to procedure. ASA Grade Assessment: III - A patient with severe systemic disease. After reviewing the risks and benefits, the patient was deemed in satisfactory condition to undergo the procedure. The Bronchoscope was introduced through the mouth, via the endotracheal tube (the patient was intubated for the procedure) and advanced to the tracheobronchial tree of both lungs. The procedure was accomplished without difficulty. The patient tolerated the procedure well. Findings: The endotracheal tube is in good position. The visualized portion of the trachea is of normal caliber. The carlota is splayed. The tracheobronchial tree was examined to at least the first subsegmental level. Bronchial mucosa and anatomy are normal except as noted; there are no endobronchial lesions. There was some white and clear mucoid secretions throughout. Mucosa in right middle lobe appeared inflamed, no endobronchial lesions. An endobronchial ultrasound endoscope was utilized in order to assist with fine needle aspiration in the right paratracheal area. Transbronchial needle aspirations of a lymph node were performed in the right paratracheal area using an [employer] EBUS-TBNA 21 gauge needle and sent for routine cytology. The procedure was guided by ultrasound. The subcarinal lymph node and right hilar lymph nodes were assessed using ultrasound but were not sampled. Rapid on site cytology confirmed adequate sample from right paratracheal lymph node. Bronchoalveolar lavage was performed in the right middle lobe of the lung and sent for cell count, bacterial culture, and fungal & AFB analysis. The return was blood-tinged. Mucous plugs were present in the return fluid. Bronchoalveolar lavage was performed in the left upper lobe of the lung and sent for cell count, bacterial culture, and fungal & AFB analysis and cytology. The return was cloudy. Mucous plugs were present in the return fluid. Impression: - Left upper lobe nodules - Mediastinal adenopathy - Paratracheal adenopathy - The airway examination was normal. - Endobronchial ultrasound was performed. - A transbronchial needle aspiration was performed. - Bronchoalveolar lavage was performed. - Bronchoalveolar lavage was performed. Recommendation: - Await test results. Procedure Code(s): --- Professional --- 69480, Bronchoscopy, rigid or flexible, including fluoroscopic guidance, when performed; with transbronchial needle aspiration biopsy(s), trachea, main stem and/or lobar bronchus(i) 52599, Bronchoscopy, rigid or flexible, including fluoroscopic guidance, when performed; with bronchial alveolar lavage 52291, Bronchoscopy, rigid or flexible, including fluoroscopic guidance, when performed; with transendoscopic endobronchial ultrasound (EBUS) during bronchoscopic diagnostic or therapeutic intervention(s) for peripheral lesion(s) (List separately in addition to code for primary procedure[s]) CPT copyright 2019 [employer]. All rights reserved. The codes documented in this report are preliminary and upon cocktail server review may be revised to meet current compliance requirements. Danielle Hargrove MD 05/29/2021 10:52:02 AM Number of Addenda: 0 Note Initiated On: 05/29/2021 9:11 AM
--- NOTE | 2021-05-29 10:56 | REP ---
INDICATION: POST OP IN PACU COMPARISON: 05/17/2021 TECHNIQUE: Portable AP view of the chest FINDINGS: Evaluation is limited by portable technique, underpenetration, and rotation. Mediastinum and cardiac silhouette are relatively stable. Chronic interstitial changes are again noted. Mild right basilar atelectasis cannot be excluded. No effusion. No pneumothorax. IMPRESSION: Limited examination cannot exclude mild right basilar atelectasis. <Electronically signed by Rommel Hogan > 05/29/21 [id number]
[2021-05-29] MEDS: LACTOBACILLUS ACIDOPHILUS CAP (BACID) PO SCH (11:28)
[2021-05-29] MEDS: TORSEMIDE (DEMADEX) 50 MG PER 1/2 TAB PO SCH (11:29)
[2021-05-29] MEDS: MAG SULF 1GM/100ML (MAG RUN) 1 GM in IV 1 EA IV SCH ×2 (11:30→12:40)
[2021-05-29] MEDS: ISOSORBIDE MON. (IMDUR) 30 MG XR TAB PO SCH (11:30)
[2021-05-29] MEDS: predniSONE 20 MG TAB PO SCH (11:31)
[2021-05-29] MEDS: CALCITRIOL 0.25 MCG CAP (S0169) PO SCH (11:31)
[2021-05-29] MEDS: allopurinoL 100 MG TAB PO SCH (11:31)
[2021-05-29] MEDS: PREGABALIN 75 MG CAP(LYRICA) PO SCH ×2 (11:31→16:15)
[2021-05-29] MEDS: TAMSULOSIN 0.4 MG CAP PO SCH (11:31)
[2021-05-29] MEDS: DOCUSATE SODIUM 100MG CAPSULE PO SCH (11:31)
[2021-05-29] MEDS: PANTOPRAZOLE 40MG TAB (PROTONIX) PO SCH (11:32)
[2021-05-29] MEDS: amLODIPine 5 MG TAB PO SCH (11:32)
[2021-05-29] MEDS: traMADol ER 100MG TABLET (ULTRAM ER) PO SCH (11:39)
[2021-05-29] MEDS ORDERED: PRED10TA2 PO (12:03)
[2021-05-29] MEDS ORDERED: CEFD1CAP8 PO (12:03)
[2021-05-29] MEDS ORDERED: DOXY-350 PO (12:03)
[2021-05-29 12:26] LABS: APPEARANCE HAZY (CLEAR); COLOR COLORLESS (COLORLESS); SOURCE LEFT UPPER LOBE
--- NOTE | 2021-05-29 13:43 | IPN ---
PULMONARY PROGRESS NOTE DATE: 05/29/2021 SUBJECTIVE: Patient was seen and examined this morning during bedside rounds. Patient has been kept NPO since midnight for her bronchoscopy this morning. She reports some nervousness but is understandable and agreeable of the bronchoscopy procedure. She otherwise continues to have some occasional cough with mostly clear mucous. She denies any worsening shortness of breath or dyspnea and no significant wheezing noted currently. She continues to have hoarseness of her voice which is unchanged. She denies having any fevers or chills noted overnight. OBJECTIVE: VITALS: Temperature 97,1, pulse 60, respirations 20, blood pressure 149/69, O2 sat 93% on 2 liters nasal cannula. INPUT AND OUTPUT: In 920 ml, out 400 ml. GENERAL: Patient is an obese female. She is lying in the bed and is awake, alert and oriented x3. She has a very soft and hoarse voice which is unchanged. She does appear anxious intermittently. HEENT: Normocephalic. She has a healing ecchymosis under her right eye. Pupils reactive to light bilaterally. Moist mucous membranes are noted. Patient is edentulous, Mallampati Class 4. NECK: Supple. Trachea is midline. Unable to clearly palpate any cervical adenopathy. CARDIAC: Normal S1 and S2 with faint murmur auscultated. PULMONARY: Generally mildly diminished breath sounds bilaterally with a few crackles noted at the right base. No significant rhonchi or wheezing. ABDOMEN: Obese, soft, nontender and nondistended. No masses palpated. EXTREMITIES: There is no lower extremity edema in the bilateral lower extremities. There are multiple skin lesions in the lower extremities as well as some in her arms which appear to be more seborrheic keratosis. She has an occasional resting essential tremor noted. LABORATORY DATA: WBC 8.8, hemoglobin 12.6, platelets 175,000. Chemistries: Sodium 140, potassium 4.2, chloride 101, bicarbonate is 35, BUN 49, creatinine 1.83, glucose 115. BNP was 801. Procalcitonin was less than 0.05. INR was 1.02. ASSESSMENT AND PLAN: Ms. Falcon is an 81-year-old female with a history of COPD with chronic hypoxemic respiratory failure on 2 liters of nasal cannula oxygen supplementation, HOWARD not compliant with CPAP, history of CKD, hypertension, diabetes, and ongoing nicotine dependence who presented initially with complaints of chest pain and cough. Patient also had reported a six month history or so of hoarseness and loss of her voice. Her CT chest showed suspicious findings in particular lobular mass in the left upper lobe as well as extensive bulky mediastinal and paratracheal adenopathy suspicious for primary lung malignancy. There are also some areas of stranding and infiltrate in the right middle lobe which may be possible infectious etiology. She was admitted and treated for an acute COPD exacerbation as well as for possible pneumonia. We did also discuss with the patient about her findings on imaging concerning for malignancy and need for further diagnostic testing. Patient is agreeable for a bronchoscopy and she did have bronchoscopy with EBUS and FNA of her lymph nodes performed earlier. The patient had EBUS and FNA of her right paratracheal lymph node. Rapid Onsite cytology did confirm adequate sample. She also had bronchoalveolar lavage performed in the right middle lobe as well as in the left upper lobe which were sent for culture as well as for cytology in the left upper lobe. Her post-procedure chest x-ray did not show any pneumothorax and the patient was able to be weaned down her usual nasal cannula oxygen supplementation. The patient will need a follow-up for her pathology results as well as for follow-up of her BAL as an outpatient. Will tentatively schedule her for a follow-up in the Pulmonary Clinic on if her pathology results are available then, otherwise will schedule her for follow-up next week. 2. COPD with chronic hypoxemic respiratory failure on nasal cannula oxygen supplementation. Patient was on Ceftriaxone and Azithromycin initially for possible pneumonia. Her procalcitonin is negative. Will likely be able to discontinue antibiotics but will also follow-up the results of her BAL culture. She did have some white mucoid secretion noted on bronchoscopy and suspect she may have some yeast likely in the setting of her inhaled corticosteroids. Will continue with her maintenance inhalers and nebulized bronchodilators. Will continue with prednisone with a taper for her acute exacerbation. Will continue with nasal cannula oxygen supplementation to maintain O2 sats above 88%. 3. Nicotine dependence. Will strongly encourage continued smoking cessation with a nicotine patch or other nicotine replacement therapy if needed. 4. Code status: DNR/DNI. Patient can be discharged post bronchoscopy with follow-up with Pulmonary as an outpatient.
[2021-05-29] MEDS ORDERED: ASPI-281 PO (16:23)
[2021-05-30 07:27] LABS: MONOCYTES/MACROPHAGES, BAL 45 %
== END 2021-05-29 17:05 | disposition home health service (06) | DRG 180 ==
LOC: M ED 01:57 → M ED INP 04:30 → ENRESERV 08:05 → M PCU 08:51
PROVIDERS: ADMIT Internal Medicine; ATTEND Internal Medicine
PROC: 0B9D8ZX Drainage of Right Middle Lung Lobe, Via Natural or Artificial Opening Endoscopic, Diagnostic (ICD-10-PCS; 2021-05-29)
PROC: 0BB18ZX Excision of Trachea, Via Natural or Artificial Opening Endoscopic, Diagnostic (ICD-10-PCS; 2021-05-29)
PROC: 0BB68ZX Excision of Right Lower Lobe Bronchus, Via Natural or Artificial Opening Endoscopic, Diagnostic (ICD-10-PCS; 2021-05-29)
PROC: 0B9G8ZX Drainage of Left Upper Lung Lobe, Via Natural or Artificial Opening Endoscopic, Diagnostic (ICD-10-PCS; principal; 2021-05-29 09:15)
DX: C34.90 Malignant neoplasm of unspecified part of unspecified bronchus or lung (principal); J18.9 Pneumonia, unspecified organism; J44.1 Chronic obstructive pulmonary disease with (acute) exacerbation; J96.11 Chronic respiratory failure with hypoxia; N17.9 Acute kidney failure, unspecified; I13.0 Hypertensive heart and chronic kidney disease with heart failure and stage 1 through stage 4 chronic kidney disease, or unspecified chronic kidney disease; I48.91 Unspecified atrial fibrillation; N18.30 Chronic kidney disease, stage 3 unspecified; E11.51 Type 2 diabetes mellitus with diabetic peripheral angiopathy without gangrene; I25.10 Atherosclerotic heart disease of native coronary artery without angina pectoris; Z95.2 Presence of prosthetic heart valve; Z79.899 Other long term (current) drug therapy; Z79.82 Long term (current) use of aspirin; Z91.040 Latex allergy status; Z88.5 Allergy status to narcotic agent; Z88.8 Allergy status to other drugs, medicaments and biological substances; F17.200 Nicotine dependence, unspecified, uncomplicated; I50.9 Heart failure, unspecified; K21.9 Gastro-esophageal reflux disease without esophagitis; M10.9 Gout, unspecified; G47.33 Obstructive sleep apnea (adult) (pediatric); Z91.19 Patient's noncompliance with other medical treatment and regimen; Z66 Do not resuscitate

== ENCOUNTER 2021-06-05 19:30 | Inpatient (IN) | payer MEDICARE ==
[~2021-06-05] VITALS: Ht 154.9 cm; Wt 81.1 kg
[~2021-06-05 19:30] MED LIST changes: +ASPI-310 PO; -CEFD1CAP8 PO; +CEFD300C41 PO; +DOXY-350 PO; -MAGN400T3 PO; +MAGN400T33 PO; +med rec comment
[2021-06-05 20:05] LABS: BASO % 0.1 % (0.0-1.0); EOS % 0.2 % (0.0-3.0); HEMATOCRIT 41.3 % (36.0-47.0); HEMOGLOBIN 13.2 g/dl (12.0-15.5); LYMPH # 2.1 10^3/uL (1.5-5.0); LYMPH % 22.2 % (24.0-44.0); MEAN CORPUSCULAR HEMOGLOBIN 31.8 pg (27.0-33.0); MEAN CORPUSCULAR VOLUME 99.5 fl (80.0-96.0); MONO # 1.2 10^3/uL (0.0-0.8); MONO % 12.9 % (2.0-8.0); NEUTROPHILS # 6.1 10^3/uL (1.5-8.5); NEUTROPHILS % 63.8 % (36.0-66.0); PLATELET COUNT, AUTOMATED 183 10^3/uL (150-450); RED BLOOD COUNT 4.15 10^6/uL (4.00-5.40); WHITE BLOOD COUNT 9.6 10^3/uL (4.0-10.0)
[2021-06-05 21:00] LABS: ALBUMIN 2.7 GM/DL (3.2-5.2); ALT/SGPT 15 U/L (12-78); BILIRUBIN,DIRECT < 0.1 MG/DL (0.0-0.2); BILIRUBIN,TOTAL 0.3 MG/DL (0.2-1.0); BLOOD UREA NITROGEN 48 MG/DL (7-18); CALCIUM LEVEL 8.8 MG/DL (8.8-10.2); CARBON DIOXIDE LEVEL 34 MEQ/L (21-32); CHLORIDE LEVEL 101 MEQ/L (98-107); CK-MB VALUE MASS < 1.0 NG/ML (<3.6); CPK CREATINE PHOSPHOKINASE 29 U/L (26-192); CREATININE FOR GFR 1.75 MG/DL (0.55-1.30); GLOMERULAR FILTRATION RATE 29.8 (>32); GLUCOSE, FASTING 235 MG/DL (70-100); MB/CK RELATIVE INDEX 3.45 (< OR =4); NT-PRO BNP 786 PG/ML (<450); POTASSIUM SERUM 3.9 MEQ/L (3.5-5.1); SODIUM LEVEL 139 MEQ/L (136-145); TOTAL PROTEIN 5.7 GM/DL (6.4-8.2); TROPONIN I < 0.02 NG/ML (< 0.10)
[2021-06-05] MEDS ORDERED: HumaLOG INSULIN (NovoLOG) PER UNIT SC SCH (21:00)
[2021-06-05] MEDS ORDERED: methylPREDNISolone 125MG 2ML VIAL IV ONE (23:35)
[2021-06-05] MEDS ORDERED: COMBIVENT RESPIMAT 100-20MCG INHALER 4GM INH ONE (23:35)
[2021-06-06] MEDS ORDERED: ACETAMINOPHEN TAB 650MG DOSE (2X325MG) PO PRN (00:40)
[2021-06-06] MEDS ORDERED: ASPI81CH48 PO (00:44)
[2021-06-06] MEDS ORDERED: ALBU83IN INH (00:44)
[2021-06-06] MEDS ORDERED: ASPI1CHW3 PO (00:44)
[2021-06-06] MEDS ORDERED: AZITHROMYCIN INJ 500 MG, VIAL MATE ADAPTER 1 EACH in NS 250 ML IV SCH (00:45)
[2021-06-06] MEDS ORDERED: PRED10TA2 PO (00:46)
[2021-06-06] MEDS ORDERED: TREL1AER INH (00:49)
[2021-06-06] MEDS ORDERED: DICY1CAP8 PO (00:49)
[2021-06-06] MEDS ORDERED: ALBUTEROL 90 MCG/ACT 8GM HFA INHALER INH PRN (01:15)
[2021-06-06] MEDS ORDERED: ENOXAPARIN 30MG/0.3ML SYRINGE (J1650 PER 10MG) SC SCH (01:15)
[2021-06-06 01:57] LABS: ABG BASE EXCESS 7.9 (-2.0-2.0); ABG O2 SATURATION 97.1 % (95.0-99.0); ABG PARTIAL PRESSURE CO2 47.5 mmHg (35.0-45.0); ABG PARTIAL PRESSURE O2 82.6 mmHg (75.0-100.0); ABG STANDARD HCO3 31.8 MEQ/L (22.0-26.0); ABG TOTAL CO2 34.5 MEQ/L (23.0-31.0)
[2021-06-06] MEDS ORDERED: DICYCLOMINE 10 MG CAP PO PRN (02:00)
[2021-06-06] MEDS ORDERED: traMADol 50 MG TAB PO PRN (02:00)
[2021-06-06] MEDS ORDERED: LORazepam 0.5 MG TAB PO PRN (02:00)
[2021-06-06] MEDS ORDERED: DEXTROSE 50% 50 ML SYRINGE IV PRN (02:10)
[2021-06-06] MEDS ORDERED: GLUCOSE 4GM CHEW TABLET PO PRN (02:10)
[2021-06-06] MEDS ORDERED: GLUCAGON INJ 1MG VIAL SC PRN (02:10)
[2021-06-06 02:15] LABS: ERYTHROCYTE SEDIMENTATION RATE 49 mm/hr (0-30)
[2021-06-06 03:30] VITALS: BP 114/55
[2021-06-06 03:58] LABS: CK-MB VALUE MASS 1.4 NG/ML (<3.6); CPK CREATINE PHOSPHOKINASE 37 U/L (26-192); MB/CK RELATIVE INDEX 3.78 (< OR =4); TROPONIN I < 0.02 NG/ML (< 0.10)
[2021-06-06 04:00] VITALS: O2SAT 99
[2021-06-06] MEDS ORDERED: HumaLOG INSULIN (NovoLOG) PER UNIT SC STA (04:16)
[2021-06-06 05:00] VITALS: O2SAT 97
[2021-06-06 05:32] LABS: HEMATOCRIT 40.6 % (36.0-47.0); HEMOGLOBIN 13.1 g/dl (12.0-15.5); MEAN CORPUSCULAR HEMOGLOBIN 31.8 pg (27.0-33.0); MEAN CORPUSCULAR HGB CONC 32.3 g/dl (32.0-36.5); MEAN CORPUSCULAR VOLUME 98.5 fl (80.0-96.0); PLATELET COUNT, AUTOMATED 158 10^3/uL (150-450); RED BLOOD COUNT 4.12 10^6/uL (4.00-5.40); WHITE BLOOD COUNT 4.8 10^3/uL (4.0-10.0)
[2021-06-06 06:00] VITALS: O2SAT 97
[2021-06-06 06:07] LABS: CALCIUM LEVEL 9.3 MG/DL (8.8-10.2); CREATININE FOR GFR 1.58 MG/DL (0.55-1.30); GLOMERULAR FILTRATION RATE 33.5 (>32); POTASSIUM SERUM 4.3 MEQ/L (3.5-5.1)
[2021-06-06 07:00] VITALS: O2SAT 92
[2021-06-06] MEDS ORDERED: HumaLOG INSULIN (NovoLOG) PER UNIT SC SCH (07:30)
[2021-06-06 08:00] VITALS: BP 122/69
[2021-06-06] MEDS ORDERED: TIOTROPIUM INHALER/CAPSULE (SPIRIVA) INH SCH (08:00)
[2021-06-06] MEDS ORDERED: methylPREDNISolone 125MG 2ML VIAL IV SCH (08:00)
[2021-06-06] MEDS ORDERED: ADVAIR HFA 115/21MCG INHALER INH SCH (08:00)
[2021-06-06] MEDS ORDERED: allopurinoL 100 MG TAB PO SCH (09:00)
[2021-06-06] MEDS ORDERED: PREGABALIN 75 MG CAP(LYRICA) PO SCH (09:00)
[2021-06-06] MEDS ORDERED: LACTOBACILLUS ACIDOPHILUS CAP (BACID) PO SCH (09:00)
[2021-06-06] MEDS ORDERED: TORSEMIDE (DEMADEX) 50 MG PER 1/2 TAB PO SCH (09:00)
[2021-06-06] MEDS ORDERED: ASPIRIN 81 MG CHEW TABLET PO SCH (09:00)
[2021-06-06] MEDS ORDERED: ISOSORBIDE MON. (IMDUR) 30 MG XR TAB PO SCH (09:00)
[2021-06-06] MEDS ORDERED: PANTOPRAZOLE 40MG TAB (PROTONIX) PO SCH (09:00)
[2021-06-06] MEDS ORDERED: TAMSULOSIN 0.4 MG CAP PO SCH (09:00)
[2021-06-06] MEDS ORDERED: CALCITRIOL 0.25 MCG CAP (S0169) PO SCH (09:00)
[2021-06-06] MEDS ORDERED: amLODIPine 5 MG TAB PO SCH (09:00)
[2021-06-06] MEDS ORDERED: PRED20TA PO (09:45)
== END 2021-06-06 10:40 | disposition left against medical advice (07) | DRG 191 ==
LOC: M ED 19:30 → M ED INP 06-06 00:36 → M PCU 06-06 03:27
PROVIDERS: ADMIT Internal Medicine; ATTEND Internal Medicine
DX: J44.1 Chronic obstructive pulmonary disease with (acute) exacerbation (principal); J96.11 Chronic respiratory failure with hypoxia; I50.32 Chronic diastolic (congestive) heart failure; Z99.81 Dependence on supplemental oxygen; K21.9 Gastro-esophageal reflux disease without esophagitis; E11.9 Type 2 diabetes mellitus without complications; I11.0 Hypertensive heart disease with heart failure; I25.10 Atherosclerotic heart disease of native coronary artery without angina pectoris; Z95.2 Presence of prosthetic heart valve; G47.33 Obstructive sleep apnea (adult) (pediatric); E66.01 Morbid (severe) obesity due to excess calories; Z91.19 Patient's noncompliance with other medical treatment and regimen; R91.1 Solitary pulmonary nodule; F17.200 Nicotine dependence, unspecified, uncomplicated; Z79.82 Long term (current) use of aspirin; Z79.899 Other long term (current) drug therapy; Z91.040 Latex allergy status; Z88.5 Allergy status to narcotic agent; Z88.8 Allergy status to other drugs, medicaments and biological substances; I48.0 Paroxysmal atrial fibrillation

== ENCOUNTER → 2021-06-18 | Outpatient (CLI) | payer MEDICARE ==
[~2021-06-18] MED LIST changes: +ALBU83IN INH; +ASPI1CHW3 PO; +ASPI81CH48 PO; +CEFD1CAP8 PO; -CEFD300C41 PO; +DICY1CAP8 PO; +MAGN400T3 PO; -MAGN400T33 PO; +TREL1AER INH
== END ==
LOC: M PLARAD 12:05
PROVIDERS: ATTEND Internal Medicine Pulmonary Disease
DX: C34.12 Malignant neoplasm of upper lobe, left bronchus or lung (principal); Z53.9 Procedure and treatment not carried out, unspecified reason

== ENCOUNTER 2021-07-31 18:23 | Emergency (ER) | payer MEDICARE ==
[~2021-07-31 18:23] MED LIST changes: -MAGN400T3 PO; +MAGN400T33 PO
[2021-07-31] MEDS ORDERED: COMBIVENT RESPIMAT 100-20MCG INHALER 4GM INH STA (18:38)
--- OUTSIDE RECORDS SUMMARY | 2021-07-31 19:01 | CCD | Continuity of Care Document ---
Author Author Cata BUCK M.D. Organization Unknown Address [address] [place] [address] Phone [phone] Care Team Providers Care Senior Oracle Database Developer Name Role Phone Tejas Clifton [facility] [phone] Problems Description No Information Available Social History Type Date Description Comments Sex Unknown Allergies, Adverse Reactions, Alerts Active Allergies Criticality Reaction | Severity Comments Date Latex Unable to assess criticality 05/31/2021 Medications Active Medications SIG Qnty Indications Ordering Provide r Date Breztri Aerosphere 1 60-9-4.8mcg/Act Aerosol 2 puff twice a day 10.700gm Danielle Buck M.D. 0 06/22/2021 Tylenol 1 tab by mouth everyday as needed Un known Xopenex HFA 45mcg/Act Aerosol 2 puffs qid/prn Unknown Allopurinol 100mg Tablets 1 tab by mouth everyday Unknown Norvasc 5mg Tablets 1 tab by mouth everyday Unknown Ativan 0.5mg Tablets 1 tab by mouth as needed everyday Unknown Protonix 40mg Tablets DR 1 tab by mouth everyday Unknown Lyrica 75mg Capsules 1 tab by mouth twice a day Unknown Ultram 50mg Tablets 1-2 tabs by mouth every 4 hours as needed Unknown 00 Torsemide 20mg Tablets 2.5 tabs by mouth everyday Unknown Ultram 50mg Tablets 1-2 tabs by mouth everyday Unknown Basaglar Kwikpen 8 units everyda Unknown Aspirin 81mg Tablets DR 1 by mouth every day Unknown History Medications Cefdinir 300mg Capsules 1 tab by mouth twice a day x 5days Unknown 06/13/2021 - 12/20/2020 Trelegy Ellipta 200- 62.5-25mcg/Inh Aerosol inhale 1 puff by mouth every day 60units Danielle Buck M.D. 05/31/2021 - 06/22/2021 Immunizations Description No Information Available Vital Signs Description No Information Available Procedures Date Code Description Status 06/22/2021 49877 Smoking & Tobacco Cessation Coun seling Intensive >10 Minutes Completed 06/22/2021 93953 Tobacco Cessation Counseling Com pleted 05/31/2021 53278 Tobacco Cessation Counseling Com pleted 05/31/2021 81925 Office/Outpatient Established Mo d MDM 30-39 Min Completed 05/29/2021 38651 Hospital Subsequent Care Level 2 Completed 05/29/2021 06861 With Endobronchial Ultrasound Gu ided Completed 05/29/2021 99132 Bronchoscopy W/Bronchial Alveola r Lavage Completed 05/28/2021 23142 Critical Care First 30-74 Minute s Completed 05/27/2021 07431 Hospital Initial Care Level 1 Co mpleted Medical Devices Description No Information Available Encounters Type Date Location Provider Dx Diagnosis Office Visit 06/22/2021 10:00a [facility] Danielle Adames M.D. 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 R91.8 Other nonspecific abnormal f inding of lung field R59.0 Localized enlarged lymph nod es J44.1 Chronic obstructive pulmonar y disease w (acute) exacerbation J96.11 Chronic respiratory failure with hypoxia Office Visit 05/28/2021 1:23a [facility] Danielle Adames M.D. C34.90 Malignant neoplasm of unsp p art of unsp bronchus or lung J18.9 Pneumonia, unspecified organ ism J44.1 Chronic obstructive pulmonar y disease w (acute) exacerbation J96.11 Chronic respiratory failure with hypoxia N17.9 Acute kidney failure, unspec ified Office Visit 05/27/2021 1:23a [facility] Estuardo azar D.O. C34.90 Malignant neoplasm of unsp part of unsp bronchus or lung J18.9 Pneumonia, unspecified organ ism J44.1 Chronic obstructive pulmonar y disease w (acute) exacerbation J96.11 Chronic respiratory failure with hypoxia N17.9 Acute kidney failure, unspec ified Assessments Date Code Description Provider 06/22/2021 C77.1 Secondary and unspec ified malignant neoplasm of intrathoracic lymph nodes Danielle Buck M.D. 06/22/2021 C34.12 Malignant neoplasm of upper lobe , left bronchus or lung Danielle Buck M.D. 06/22/2021 J44.9 Chronic obstructive pulmonary di sease, unspecified Danielle Buck M.D. 06/22/2021 R09.02 Hypoxemia Danielle Buck M.D. 06/22/2021 F17.218 Nicotine dependence, cigarettes, with other nicotine-induced disorders Danielle Buck M.D. 05/31/2021 C77.1 Secondary and unspec ified malignant neoplasm of intrathoracic lymph nodes Danielle Buck M.D. 05/31/2021 C34.12 Malignant neoplasm of upper lobe , left bronchus or lung Danielle Buck M.D. 05/31/2021 J44.9 Chronic obstructive pulmonary di sease, unspecified Danielle Buck M.D. 05/31/2021 R09.02 Hypoxemia Danielle Buck M.D. 05/31/2021 F17.218 Nicotine dependence, cigarettes, with other nicotine-induced disorders Danielle Buck M.D. 05/29/2021 R91.8 Other nonspecific abnormal findi ng of lung field Danielle Buck M.D. 05/29/2021 R59.0 Localized enlarged lymph nodes Chante Danielle pagan M.D. 05/29/2021 J44.1 Chronic obstructive pulmonary disease with (acute) exacerbation Danielle Buck M.D. 05/29/2021 J96.11 Chronic respiratory failure with hypoxia Danielle Buck M.D. 05/28/2021 C34.90 Malignant neoplasm o f unspecified part of unspecified bronchus or lung Danielle Buck M.D. 05/28/2021 J18.9 Pneumonia, unspecified organism Danielle Buck M.D. 05/28/2021 J44.1 Chronic obstructive pulmonary disease with (acute) exacerbation Danielle Buck M.D. 05/28/2021 J96.11 Chronic respiratory failure with hypoxia Danielle Buck M.D. 05/28/2021 N17.9 Acute kidney failure, unspecifie d Danielle Buck M.D. 05/27/2021 C34.90 Malignant neoplasm o f unspecified part of unspecified bronchus or lung Estuardo Sears, D.O. 05/27/2021 J18.9 Pneumonia, unspecified organism Estuardo Sears, D.O. 05/27/2021 J44.1 Chronic obstructive pulmonary disease with (acute) exacerbation Estuardo Sears, D.O. 05/27/2021 J96.11 Chronic respiratory failure with hypoxia Estuardo Sears, D.O. 05/27/2021 N17.9 Acute kidney failure, unspecifie d Estuardo Sears, D.O. Plan of Treatment Future Appointment(s):* 08/15/2021 3:00 pm - Danielle Buck M.D. 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 Video visit in 1-2 months Functional Status Description No Information Available Mental Status Description No Information Available Referrals Refer to Reason for Referral Status Appt Date Danielle Buck M.D. PET SCAN [id number] Created [facility], Pulmonary [address] [place] [address] [phone] Michael Del Valle M.D. newly dx small cell carcinoma Created [facility] [address] [place] [phone] Hector Vazquez M.D. newly dx small cell carcinoma Created [facility] [address] [place] [address] [phone]
--- OUTSIDE RECORDS SUMMARY | 2021-07-31 19:01 | CCD | Continuity of Care Document ---
Author Author Cata BUCK M.D. Organization Unknown Address [address] [place] [address] Phone [phone] Care Team Providers Care Barrel Inspector Tight Name Role Phone Tejas Clifton [facility] [phone] Problems Description No Information Available Social History [...] Available Procedures Date Code Description Status 06/22/2021 16072 Tobacco Cessation Counseling Com pleted 06/22/2021 59414 Office/Outpatient Established Mo d MDM 30-39 Min Completed 05/31/2021 99273 Tobacco Cessation Counseling Com pleted 05/31/2021 20227 Office/Outpatient Established Mo d MDM 30-39 Min Completed 05/29/2021 87129 Hospital Subsequent Care Level 2 Completed 05/29/2021 07274 With Endobronchial Ultrasound Gu ided Completed 05/29/2021 73374 Bronchoscopy W/Bronchial Alveola r Lavage Completed 05/28/2021 66753 Critical Care First 30-74 Minute s Completed 05/27/2021 55892 Hospital Initial Care Level 1 Co mpleted [...] failure with hypoxia Office Visit 05/28/2021 1:23a [facility] Daneille Adames M.D. C34.90 Malignant neoplasm of unsp p art of unsp bronchus or lung J18.9 Pneumonia, unspecified organ ism J44.1 Chronic obstructive pulmonar y disease w (acute) exacerbation J96.11 Chronic respiratory failure with hypoxia N17.9 Acute kidney failure, unspec ified Office Visit 05/27/2021 1:23a [facility] Estuardo azar D.O. C34.90 Malignant neoplasm [...] Sears, D.O. Plan of Treatment Future Appointment(s):* 08/22/2021 2:30 pm - Danielle Buck M.D. 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 Video visit in 1-2 months Functional Status Description No Information Available Mental Status Description No Information Available Referrals Refer to Reason for Referral Status Appt Date Danielle Buck M.D. PET SCAN 02041 Created [facility], Pulmonary [address] [place], [place] [address] [phone] Michael Del Valle M.D. newly dx small cell carcinoma Created [facility] [address] [place] [phone] Hector Vazquez M.D. newly dx small cell carcinoma Created [facility] [address] [place] [address] [phone]
--- OUTSIDE RECORDS SUMMARY | 2021-07-31 19:02 | CCD | Continuity of Care Document ---
Author Author Cata BRADLEY Organization Unknown Address [address] [place] [address] [address] [place] [address] Phone [phone] Care Team Providers Care Rapid Extractor Operator Name Role Phone Marcos Sanchez M.D. AUTM [phone] Tesfaye Moore M.D. AUTM [phone] Viola Moctezuma MD AUTM [phone] [facility] AUTM Problems Active Problems Provider Date Type 2 diabetes mellitus JACKIE Suarez Onset: 016 Multi vessel coronary artery disease JACKIE Suarez On set: 07/25/2016 Stable angina JACKIE Suarez Onset: 07/25/2016 Essential hypertension JACKIE Suarez Onset: 6 Chronic obstructive lung disease JACKIE Suarez Onset: 07/25/2016 Cigarette smoker JACKIE Suarez Onset: 07/25/2016 Low back pain JACKIE Suarez Onset: 08/12/2016 Carpal tunnel syndrome JACKIE Suarez Onset: 6 Diabetic peripheral neuropathy JACKIE Suarez Onset: 11/24/2015 Tobacco use JACKIE Suarez Onset: 09/23/2016 Long-term current use of insulin Kateryna Aguilar, D.O. Onset: 03/26/2017 Allergy status to narcotic agent Kateryna Aguilar, D.O. Onset: 03/26/2017 Peripheral vascular disease JACKIE Suarez Onset: 07/06 Secondary polycythemia JACKIE Suarez Onset: 7 Nicotine dependence, cigarettes, with other nicotine-i nduced disorders JACKIE Suarez Onset: 07/22/2017 Generalized anxiety disorder JACKIE Suarez Onset: End stage renal failure on dialysis AJCKIE Suarez Ons et: 03/19/2020 Social History Type Date Description Comments Sex Unknown ETOH Use Denies alcohol use Recreational Drug Use Denies Drug Use Tobacco Use Start: Unknown Light tobacco smoker (10 or fewe r cigarettes/day) Smoking Status Reviewed: 06/13/21 Light tobacco smoker (10 or fewer cigarettes/day) Sun Exposure Does not use sunscreen Seat Belt/Car Seat Never uses seat belt Allergies, Adverse Reactions, Alerts Active Allergies Criticality Reaction | Severity Comments Date Codeine Unable to assess criticality 07/25/2016 Lisinopril Unable to assess criticality angeoedema l ip/ 12/06/19 01/17/2020 Latex Unable to assess criticality rash itching 01/17/2020 Medications Active Medications SIG Qnty Indications Ordering Provide r Date Pregabalin 75mg Capsules take one capsule by mouth three times a day, maximum daily dose = 3 90caps Kateryna Philippe D.O. 04/18/2021 Basaglar Kwikpen 100 Unit/ML Solution Pen-Inject inject 8 units sq in the evening 45ml Kateryna Wilcox D.O. 01/25/2021 Novotwist 32G X 5 mm Misc to be used with basaglar pen daily 100units Kateryna Aguilar D.O. Tramadol HCL ER (Biphasic) 100mg Tablets ER 24HR take one tablet by mouth daily for pain mdd 1 istop: [id number] 22 30tabs E11.40 Kateryna Aguilar D.O. 11/13/2020 Tramadol HCL 50mg Tablets 1 tab by mouth 4 times daily as needed for severe leg pain istop #: [id number] 60tabs Kateryna Aguilar D.O. 10/10/2020 Tamsulosin HCL 0.4mg Capsules Take One Capsule By Mouth Every Day 90caps Kateryna Aguilar D.O. 10/10/2020 Lorazepam 0.5mg Tablets take 1 tab by mouth twice daily as needed istop reference #: [id number] 60tabs David NovakOEligio 09/19/2020 Blood Pressure Monitor/Extra Large Cuff Misc prognosis: fair, duration: 99 check blood pressure one time zina y 1units David HowellOEligio 03/27/2020 Ipratropium Boyce/Albuterol Sulfate 0.5-2.5(3)mg/3ML Solution Inhale 1 Vial Via Nebulizer Four Times A Day as Needed 180units Tommy Howell.O. 03/07 Extendable Bedside Rail Misc apply to side of bed to help prevent falls 2units W06.xxxA David NovakOEligio 01/26/2020 Raised Toilet Seat/Lock & Arms Mi sc use as needed 1units David HowellOEligio 01/25 Torsemide 20mg Tablets take 2 1/2 tablets twice daily 450tabs Tommy Howell.OEligio 01/25 Hydralazine HCL 25mg Tablets 1 by mouth three times daily 90tabs Tommy Howell.OEligio Commode 3-In-1 3-In-1 Misc use as directed. Dx CHF, frequent falls. 1units David ThomasonOEligio 12/27/2019 Portable Oxygen Concentrator with conserving device: u se as directed. dx: copd, having difficulty carrying her portable oxygen tank due to generalized weakness. 1units J44.9 David HowellOEligio 10/25 Dicyclomine HCL 10mg Capsules Take One Capsule By Mouth Three Times A Day as Needed For Abdominal Pain 90caps K21.9 Tommy Howell.O. 07/07/2019 Isosorbide Mononitrate ER 30mg Tablets ER 24HR 1 tab by mouth daily 90tabs Tommy Howell.O. Nitroglycerin 0.4mg Tablets Sub 1 tab sublingual for chest pain may repeat every 5 minutes x3 14tabs Tommy Novak.O. Nyamyc [id number] Powder apply topically twice a day 60gm Tommy Howell.O. Aspir-Low 81mg Tablets DR 1 by mouth every day Unknown Allopurinol 100mg Tablets Take One Tablet By Mouth Every Day 90tabs Tommy Howell.O. Albuterol Sulfate (2 .5mg/3ML) 0.083% Nebulizer use 1 vial via nebulizer 3 to 4 times a day as needed 525units Tommy Howell.O. Pantoprazole Sodium 40mg Tablets D R 1 by mouth every day 90tabs Tommy Howell.O. Amlodipine Besylate 5mg Tablets take one tablet by mouth every morning 90tabs Kateryna Lancaster er, D.O. Prednisone 10mg Tablets 4 tablets daily for 5 days then 3 tablets for 3 days then 2 tablets for 2 days then 1 tab daily for 2 days, then stop Unknown Doxycycline Hyclate 100mg Tablets DR 1 tablet by mouth every 12 hours for 5 days Unknow n Cefdinir 300mg Capsules take 1 capsule by mouth every 12 hours until gone Unknown History Medications Trazodone HCL 50mg Tablets 1-2 tab by mouth insomnia 60tabs G47.00 Tommy Howell.O. 01/08 - 01/24/2021 Medications Administered in Office Medication SIG Qnty Indications Ordering Provider Date Injection Methylprednisolone Acetate 80 MG Injection Tommy Howell.O. 0 05/22/2018 Therapeutic, Prophylactic Or Diagnostic Injection Subq/Im Injection Tommy Thomason.O. 05/22/2018 Immunization Administration Single Or Co mbination Injection JACKIE Suarez Immunizations CPT Code Status Date Vaccine Lot # [id number] Given 07/07/2019 Influenza Virus Vaccine, Quadrivalent, Split, Preservative Free [id number] Given 07/22/2017 Pneumococcal Con jugate Vaccine 13 Valent For Intramuscular Use [id number] U-Flu Given 07/17/2017 Influenza,Unspecified Vital Signs Date Vital Result Comment 06/12/2021 8:06am BP Systolic 126 mmHg BP Diastolic 52 mmHg Heart Rate 76 /min Respiratory Rate 22 /min Body Temperature 98.3 F O2 % BldC Oximetry 92 % room air 01/24/2021 2:11pm BP Systolic 132 mmHg BP Diastolic 86 mmHg Weight 201.00 lb per pt Heart Rate 85 /min Respiratory Rate 22 /min Body Temperature 98.6 F O2 % BldC Oximetry 90 % Results Test Acquired Date Facility Test Result H/L Range Note Venous Blood Gas 04/28/2021 [facility] Outpatient Testi ng (Registration) [address] [place] [address] [phone] Venous PH 7.339 units Normal 7.330-7.430 Venous Partial Pressure Co2 67.5 mmHg High 38.0-50.0 Venous Partial Pressure O2 61.9 mmHg High 30.0-50.0 Venous Total Co2 37.6 mEq/L High 24.0-28.0 Venous Hco3 35.5 mEq/L High 23.0-27.0 Venous Base Excess 7.2 High -2.0-2.0 Venous Standard Hco3 30.9 mEq/L Normal Venous O2 Saturation 91.6 % High 60.0-80.0 Ua W/ Reflex To Culture 04/28/2021 [facility] Outpatient T esting (Registration) [address] [place] [address] [phone] Appearance, Urine RFX CLEAR Normal Clear Color, Urine RFX YELLOW Normal Yellow PH,Urine RFX 5.0 units Normal 5.0-9.0 Specific [place] Ur Auto RFX 1.011 Normal 1.002-1.035 Protein, Urine Auto RFX NEGATIVE mg/dL Normal Negative Glucose, Urine (Ua) Auto RFX NEGATIVE mg/dL Normal Negative Ketone, Urine Auto RFX NEGATIVE mg/dL Normal Negative Urobilinogen, Urine Auto RFX 0.2 mg/dL Normal 0.0-2.0 Bilirubin, Urine Auto RFX NEGATIVE Normal Negative Nitrite, Urine Auto RFX NEGATIVE Normal Negative Leukocyte Esterase Ur Auto RFX NEGATIVE Normal Negative Blood, Urine Blood RFX 2+ High Negative WBC, Urine Auto RFX 0 /HPF Normal 0-3 RBC, Urine Auto RFX 2 /HPF Normal 0-3 Bacteria, Urine Auto RFX NEGATIVE Normal Negative Squam Epithelial Cell Ur Aurfx 1 /HPF Normal 0-6 Mucus, Urine RFX SMALL Normal Negative Hyaline Cast, Urine Auto RFX 0 /LPF Normal 0-1 Blood Culture 04/28/2021 [facility] Outpatient Testi ng (Registration) [address] [place] [address] [phone] Blood Culture No growth after <SEE NOTE> 1 Laboratory test finding 04/28/2021 [facility] Outpatient T esting (Registration) [address] [place] [address] [phone] iSTAT Lactate 0.88 Normal 0.4-2.0 Sars Flu A+B 04/28/2021 [facility] Outpatient Testi ng (Registration) [address] [place] [address] [phone] Influenza A Amplification NEGATIVE Normal Negati ve 2 Influenza B Amplification NEGATIVE Normal Negative 3 RSV Amplification NEGATIVE Normal Negative 4 Sars Covid-19 Amplification NEGATIVE Normal Negative 5 Laboratory test finding 04/28/2021 [facility] Outpatient T esting (Registration) [address] [place] [address] [phone] iSTAT Troponin 0.01 NG/ML Normal 0.00-0.08 CBC With Differential 04/28/2021 [facility] Outpatient Miles ting (Registration) [address] [place] [address] [phone] White Blood Count 8.2 10 Normal 4.0-10.0 Red Blood Count 4.43 10 Normal 4.00-5.40 Hemoglobin 14.1 g/dL Normal 12.0-15.5 Hematocrit 44.3 % Normal 36.0-47.0 Mean Corpuscular Volume 100.0 fl High 80.0-96.0 Mean Corpuscular Hemoglobin 31.8 pg Normal 27.0-33.0 Mean Corpuscular HGB Conc 31.8 g/dL Low 32.0-36.5 Red Cell Distribution Width 14.6 % High 11.5-14.5 Platelet Count, Automated 150 10 Normal 150-450 Neutrophils % 60.6 % Normal 36.0-66.0 Lymph % 22.7 % Low 24.0-44.0 [place]kin % 13.9 % High 2.0-8.0 Eos % 1.3 % Normal 0.0-3.0 Baso % 0.4 % Normal 0.0-1.0 Immature Granulocyte % 1.1 % Normal 0-3.0 Nucleated Red Blood Cell % 0.0 % Normal 0-0 Neutrophils # 5.0 10 Normal 1.5-8.5 Lymph # 1.9 10 Normal 1.5-5.0 Pitkin # 1.1 10 High 0.0-0.8 Eos # 0.1 10 Normal 0.0-0.5 Baso # 0.0 10 Normal 0.0-0.2 Cardiac Injury Profile 04/28/2021 [facility] Outpatient Te sting (Registration) [address] [place] [address] [phone] CPK Creatine Phosphokinase 105 U/L Normal 26-19 2 CK-MB Value Mass < 1.0 NG/ML Normal <3.6 MB/CK Relative Index 0.95 Normal < Or =4 6 Liver Profile 04/28/2021 [facility] Outpatient Testi ng (Registration) [address] [place] [address] [phone] Ast/Sgot 15 U/L Normal 7-37 Alt/SGPT 13 U/L Normal 12-78 Alkaline Phosphatase 107 U/L Normal 45-117 Bilirubin,Total 0.3 mg/dL Normal 0.2-1.0 Bilirubin,Direct < 0.1 mg/dL Normal 0.0-0.2 Total Protein 6.5 GM/DL Normal 6.4-8.2 Albumin 3.2 GM/DL Normal 3.2-5.2 Albumin/Globulin Ratio 1.0 Low 1.2-2.2 Basic Metabolic Profile 04/28/2021 [facility] Outpatient T esting (Registration) [address] [place] [address] [phone] Glucose, Fasting 145 mg/dL High 70-100 Blood Urea Nitrogen 40 mg/dL High 7-18 Creatinine For GFR 1.71 mg/dL High 0.55-1.30 Glomerular Filtration Rate 30.6 Low >32 7 Sodium Level 141 mEq/L Normal 136-145 Potassium Serum 4.4 mEq/L Normal 3.5-5.1 8 Chloride Level 101 mEq/L Normal 98-107 Carbon Dioxide Level 34 mEq/L High 21-32 Anion Gap 6 mEq/L Low 8-16 Calcium Level 9.1 mg/dL Normal 8.8-10.2 Blood Culture 04/28/2021 [facility] Outpatient Testi ng (Registration) [address] [place] [address] [phone] Blood Culture No growth after <SEE NOTE> 9 CBC With Differential 01/24/2021 [facility] Outpatient Miles ting (Registration) [address] [place] [address] [phone] White Blood Count 8.3 10 Normal 4.0-10.0 Red Blood Count 4.71 10 Normal 4.00-5.40 Hemoglobin 15.1 g/dL Normal 12.0-15.5 Hematocrit 48.3 % High 36.0-47.0 Mean Corpuscular Volume 102.5 fl High 80.0-96.0 Mean Corpuscular Hemoglobin 32.1 pg Normal 27.0-33.0 Mean Corpuscular HGB Conc 31.3 g/dL Low 32.0-36.5 Red Cell Distribution Width 14.7 % High 11.5-14.5 Platelet Count, Automated 219 10 Normal 150-450 Neutrophils % 57.2 % Normal 36.0-66.0 Lymph % 24.8 % Normal 24.0-44.0 Pitkin % 14.6 % High 2.0-8.0 Eos % 2.0 % Normal 0.0-3.0 Baso % 0.4 % Normal 0.0-1.0 Immature Granulocyte % 1.0 % Normal 0-3.0 Nucleated Red Blood Cell % 0.0 % Normal 0-0 Neutrophils # 4.8 10 Normal 1.5-8.5 Lymph # 2.1 10 Normal 1.5-5.0 Pitkin # 1.2 10 High 0.0-0.8 Eos # 0.2 10 Normal 0.0-0.5 Baso # 0.0 10 Normal 0.0-0.2 Comprehensive Metabolic Profil 01/24/2021 [facility] Outpa tient Testing (Registration) [address] [place] [address] [phone] Glucose, Fasting 181 mg/dL High 70-100 Blood Urea Nitrogen 28 mg/dL High 7-18 Creatinine For GFR 1.98 mg/dL High 0.55-1.30 Glomerular Filtration Rate 25.9 Low >39 1 0 Sodium Level 138 mEq/L Normal 136-145 Potassium Serum 4.3 mEq/L Normal 3.5-5.1 Chloride Level 99 mEq/L Normal 98-107 Carbon Dioxide Level 31 mEq/L Normal 21-32 Anion Gap 8 mEq/L Normal 8-16 Calcium Level 10.1 mg/dL Normal 8.8-10.2 Ast/Sgot 5 U/L Low 7-37 Alt/SGPT 13 U/L Normal 12-78 Alkaline Phosphatase 123 U/L High 45-117 Bilirubin,Total 0.2 mg/dL Normal 0.2-1.0 Total Protein 6.7 GM/DL Normal 6.4-8.2 Albumin 3.4 GM/DL Normal 3.2-5.2 Albumin/Globulin Ratio 1.0 Low 1.2-2.2 Hemoglobin A1c 01/24/2021 [facility] Outpatient Testi ng (Registration) [address] [place] [address] [id number] [phone] Hemoglobin A1c 8.0 % Normal 11 Estimated Average Glucose 183 mg/dL High 60-110 Laboratory test finding 01/24/2021 [facility] Outpatient T esting (Registration) [address] [place] [address] [phone] Thyroid Stimulating Hormone 1.200 uIU/ML Normal 0. 358-3.740 12 Free T4 0.98 ng/dL Normal 0.76-1.46 13 1 No growth after 72 hours . A ll specimens observed for 5 days. Results final at that time. No growth after 48 hours . All specimens observed for 5 days. Results final at that time. No growth after 24 hours . All specimens observed for 5 days. Results final at that time. NO GROWTH AFTER 5 DAYS 2 Negative results do not prec lude influenza or RSV virus infection and should not be used as the sole basis for treatment or other patient management decisions. 3 Negative results do not prec lude influenza or RSV virus infection and should not be used as the sole basis for treatment or other patient management decisions. 4 Negative results do not prec lude influenza or RSV virus infection and should not be used as the sole basis for treatment or other patient management decisions. 5 A false negative result may occur if a specimen is improperly collected, transported or handled. False negative results may also occur if inadequate numbers of organisms are present in the specimen. As with any molecular test, mutations within the target regions of Xpert Xpress SARS-CoV-2 could affect primer and/or probe binding resulting in failure to detect the presence of virus. This test cannot rule out diseases caused by other bacterial or viral pathogens. DISCLAIMER: Testing was performed using the [employer] SARS-CoV-2 test. This test was developed and its performance characteristics determined by [employer]. This test has not been FDA cleared or approved. This test has been authorized by FDA under an Emergency Use Authorization (EUA). This test is only authorized for the duration of time the declaration that circumstances exist justifying the authorization of the emergency use of in vitro diagnostic tests for detection of SARS-CoV-2 virus and/or diagnosis of COVID-19 infection under section 564(b)(1) of the Act, 21 U.S.C. 360bbb-3(b)(1), unless the authorization is terminated or revoked sooner. 6 DIAGNOSIS CRITERIA MMB ng/ml Relative Index (RI) NON-AMI < or = 5 N/A COTTRELL ZONE > 5 < or = 4 AMI > 5 > 4 7 Units are mL/min/1.73 m2 Chronic Kidney Disease Staging per NKF: Stage I & II GFR >=60 Normal to Mildly Decreased Stage III GFR 30-59 Moderately Decreased Stage IV GFR 15-29 Severely Decreased Stage V GFR <15 Very Little GFR Left ESRD GFR <15 on SPEED BELT SANDER 8 Testing was performed on a S LIGHTLY hemolyzed specimen. Suggest recollection of specimen for more accurate test results. 9 No growth after 72 hours . A ll specimens observed for 5 days. Results final at that time. No growth after 48 hours . All specimens observed for 5 days. Results final at that time. No growth after 24 hours . All specimens observed for 5 days. Results final at that time. NO GROWTH AFTER 5 DAYS 10 Units are mL/min/1.73 m2 Chronic Kidney Disease Staging per NKF: Stage I & II GFR >=60 Normal to Mildly Decreased Stage III GFR 30-59 Moderately Decreased Stage IV GFR 15-29 Severely Decreased Stage V GFR <15 Very Little GFR Left ESRD GFR <15 on SPEED BELT SANDER 11 REFERENCE RANGES: <=5.6% NORMAL 5.7-6.4% SUGGESTS IMPAIRED GLUCOSE META BOLISM/PREDIABETIC >= 6.5% ABNORMAL 12 note:<nlbl:demographic_chang ed> 13 note:<nlbl:demographic_chang ed> Procedures Date Code Description Status 06/12/2021 13146 Office/Outpatient Established Hi gh MDM 40-54 Min Completed 01/24/2021 99578 Advanced Care Plan Explanation 1 St 30Mins Face To Face Completed 01/24/2021 31146 Office/Outpatient Established Mo d MDM 30-39 Min Completed 01/08/2021 42981 Office/Outpatient Established Hi gh MDM 40-54 Min Completed Medical Devices Description No Information Available Encounters Type Date Location Provider Dx Diagnosis Office Visit 06/12/2021 4:00p [facility] JACKIE Suarez C34.90 Malignant neoplasm of unsp p art of unsp bronchus or lung E11.40 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, unsp F17.210 Nicotine dependence, cigaret miles, uncomplicated J44.9 Chronic obstructive pulmonar y disease, unspecified N18.30 Chronic kidney disease, stag e 3 unspecified I50.22 Chronic systolic (congestive ) heart failure Office Visit 01/24/2021 2:00p [facility] JACKIE Suarez R53.83 Other fatigue E11.40 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, unsp F17.210 Nicotine dependence, cigaret miles, uncomplicated J44.9 Chronic obstructive pulmonar y disease, unspecified N18.30 Chronic kidney disease, stag e 3 unspecified I50.22 Chronic systolic (congestive ) heart failure Office Visit 01/08/2021 4:00p [facility] JACKIE Suarez E11.40 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, unsp F17.210 Nicotine dependence, cigaret miles, uncomplicated J44.9 Chronic obstructive pulmonar y disease, unspecified N18.30 Chronic kidney disease, stag e 3 unspecified I50.22 Chronic systolic (congestive ) heart failure G47.00 Insomnia, unspecified Assessments Date Code Description Provider 06/12/2021 C34.90 Malignant neoplasm o f unspecified part of unspecified bronchus or lung JACKIE Suarez 06/12/2021 E11.40 Type 2 diabetes maeve itus with diabetic neuropathy, unspecified JACKIE Suarez 06/12/2021 F17.210 Nicotine dependence, cigarettes, uncomplicated Tejas Bradley, PA 06/12/2021 J44.9 Chronic obstructive pulmonary di sease, unspecified Tejas Bradley, PA 06/12/2021 N18.30 Chronic kidney disease, stage 3 unspecified Tejas Bradley, PA 06/12/2021 I50.22 Chronic systolic (congestive) he art failure Tejas Bradley, PA 01/24/2021 R53.83 Other fatigue Tejas Bradley , PA 01/24/2021 E11.40 Type 2 diabetes maeve itus with diabetic neuropathy, unspecified Tejas Bradley, PA 01/24/2021 F17.210 Nicotine dependence, cigarettes, uncomplicated Tejas Bradley, PA 01/24/2021 J44.9 Chronic obstructive pulmonary di sease, unspecified Tejas Bradley, PA 01/24/2021 N18.30 Chronic kidney disease, stage 3 unspecified Tejas Bradley, PA 01/24/2021 I50.22 Chronic systolic (congestive) he art failure Tejas Bradley, JACKIE 01/08/2021 E11.40 Type 2 diabetes maeve itus with diabetic neuropathy, unspecified Tejas Bradley, PA 01/08/2021 F17.210 Nicotine dependence, cigarettes, uncomplicated Tejas Bradley, PA 01/08/2021 J44.9 Chronic obstructive pulmonary di sease, unspecified Tejas Bradley, PA 01/08/2021 N18.30 Chronic kidney disease, stage 3 unspecified Tejas Bradley, PA 01/08/2021 I50.22 Chronic systolic (congestive) he art failure Tejas Bradley, JACKIE 01/08/2021 G47.00 Insomnia, unspecified JACKIE Wade Plan of Treatment 06/12/2021 - JACKIE Suarez* C34.90 Malignant neoplasm of unspecified part of unspecified bronchus or lung* Comments:* Keep your upcoming appointment for PET scan, and we will discuss further after those results are available. * E11.40 Type 2 diabetes mellitus with diabetic neuropathy, unspecified* Comments:* Labile diabetic control noted. Continue with your current insulin regimen, and we will adjust as appropriate. * F17.210 Nicotine dependence, cigarettes, uncomplicated* Comments:* Smoking continues to be bad for your health. * J44.9 Chronic obstructive pulmonary disease, unspecified* Comments:* Continue with your current regimen. As noted above. * N18.30 Chronic kidney disease, stage 3 unspecified * I50.22 Chronic systolic (congestive) heart failure* Comments:* Appears poorly compensated currently. Try to limit the sodium in your diet as we discussed. Functional Status Description No Information Available Mental Status Description No Information Available Referrals Description No Information Available"
--- OUTSIDE RECORDS SUMMARY | 2021-07-31 19:02 | CCD | Continuity of Care Document ---
Author Author Cata BRADLEY Organization Unknown Address [address] [place] [address] [address] [place] [address] Phone [phone] Care Team Providers Care Ground School Instructor Name Role Phone Marcos Sanchez M.D. AUTM [phone] Tesfaye Moore M.D. AUTM [phone] Viola Moctezuma MD AUTM [phone] [facility] AUTM Problems Active Problems Provider Date Type [...] Onset: End stage renal failure on dialysis JACKIE Suarez Ons et: 03/19/2020 Social History Type Date Description Comments Sex Unknown ETOH Use Denies alcohol use Recreational Drug Use Denies Drug Use Tobacco Use Start: Unknown Light tobacco smoker (10 or fewe r cigarettes/day) Smoking Status Reviewed: 01/29/21 Light tobacco smoker (10 or fewer cigarettes/day) Sun Exposure Does not use sunscreen Seat Belt/Car Seat Never uses seat belt Allergies, Adverse Reactions, Alerts Active Allergies Reaction Severity Comments Date Codeine 07/25/2016 Lisinopril angeoedema lip/ 12/06/1901/16 Latex rash itching 01/17/2020 Medications Active Medications SIG Qnty Indications Ordering Provide r Date Pregabalin 75mg Capsules take one capsule by mouth three times a day, maximum daily dose = 3 90caps Kateryna Philippe D.O. 04/18/2021 Basaglar Kwikpen 100 Unit/ML Solution Pen-Inject inject 8 units sq in the evening 45ml Kateryna Wilcox D.OEligio 01/25/2021 Novotwist 32G X 5 mm Misc to be used with basaglar pen daily 100units Kateryna Aguilar D.O. Tramadol HCL ER (Biphasic) 100mg Tablets ER 24HR take one tablet by mouth daily for pain mdd 1 istop: [id number] 30tabs E11.40 Kateryna Aguilar D.O. 11/13/2020 Tramadol HCL 50mg Tablets 1 tab by mouth 4 times daily as needed for severe leg pain istop #: [id number] 60tabs Kateryna Aguilar D.O. 10/10/2020 Tamsulosin HCL 0.4mg Capsules 1 by mouth every day 90caps Tommy Howell.O. 10/10 Lorazepam 0.5mg Tablets take 1 tab by mouth twice daily as needed istop reference #: [id number] 60tabs Tommy Novak.OEligio 09/19/2020 Blood Pressure Monitor/Extra Large Cuff Misc prognosis: fair, duration: 99 check blood pressure one time zina y 1unTommy Carmona.OEligio 03/27/2020 Ipratropium [place]/Albuterol Sulfate 0.5-2.5(3)mg/3ML Solution Inhale 1 Vial Via Nebulizer Four Times A Day as Needed 180units Tommy Howell.O. 03/07 Extendable Bedside Rail Misc apply to side of bed to help prevent falls 2unisis W06.xxxA David NovakOEligio 01/26/2020 Raised Toilet Seat/Lock & Arms Mi sc use as needed 1units Tommy Howell.OEligio 01/25 Torsemide 20mg Tablets take 2 1/2 tablets twice daily 450tabs Tommy Howell.OEligio 01/25 Hydralazine HCL 25mg Tablets 1 by mouth three times daily 90tabs Tommy Howell.OEligio Commode 3-In-1 3-In-1 Misc use as directed. Dx CHF, frequent falls. 1unDavid AllredOEligio 12/27/2019 Portable Oxygen Concentrator with conserving device: u se as directed. dx: copd, having difficulty carrying her portable oxygen tank due to generalized weakness. 1units J44.9 Tommy Howell.OEligio 10/25 Dicyclomine HCL 10mg Capsules Take One Capsule By Mouth Three Times A Day as Needed For Abdominal Pain 90caps K21.9 David HowellOEligio 07/07/2019 Isosorbide Mononitrate ER 30mg Tablets ER 24HR 1 tab by mouth daily 90tabs Tommy Howell.O. Nitroglycerin 0.4mg Tablets Sub 1 tab sublingual for chest pain may repeat every 5 minutes x3 14tabs David NovakOEligio Nyamyc [id number]/GM Powder apply topically twice a day 60gm Tommy Howell.OEligio Aspir-Low 81mg Tablets DR 1 by mouth every day Unknown Allopurinol 100mg Tablets take one tablet by mouth every day 90tabs Tommy Howell.O. Albuterol Sulfate (2 .5mg/3ML) 0.083% Nebulizer use 1 vial via nebulizer 3 to 4 times a day as needed 525units Tommy Howell.O. Pantoprazole Sodium 40mg Tablets D R 1 by mouth every day 90tabs Tommy Howell.O. Amlodipine Besylate 5mg Tablets take one tablet by mouth every morning 90tabs Kateryna Lancaster er, D.O. History Medications Trazodone HCL 50mg Tablets 1-2 tab by mouth insomnia 60tabs G47.00 Tommy Howell.O. 01/08 - 01/24/2021 Amoxicillin 875mg Tablets 1 cap by mouth twice a day until gone 20tabs H66.91 Tommy Howell.O . 11/13/2020 - 01/08/2021 Medications Administered in Office Medication SIG Qnty Indications Ordering Provider Date Injection Methylprednisolone Acetate 80 MG Injection Tommy Howell.O. 0 05/22/2018 Therapeutic, Prophylactic Or Diagnostic Injection Subq/Im Injection Tommy Thomason.O. 05/22/2018 Immunization Administration Single Or Co mbination Injection JACKIE Suarez Immunizations CPT Code Status Date Vaccine Lot # [id number] Given 07/07/2019 Influenza Virus Vaccine, Quadrivalent, Split, Preservative Free [id number] Given 07/22/2017 Pneumococcal Con jugate Vaccine 13 Valent For Intramuscular Use [id number] U-Flu Given 07/17/2017 Influenza,Unspecified Vital Signs Date Vital Result Comment 01/24/2021 2:11pm BP Systolic 132 mmHg BP Diastolic 86 mmHg Weight 201.00 lb per pt Heart Rate 85 /min Respiratory Rate 22 /min Body Temperature 98.6 F O2 % BldC Oximetry 90 % 01/08/2021 8:41pm BP Systolic 138 mmHg BP Diastolic 68 mmHg Heart Rate 72 /min Respiratory Rate 20 /min Body Temperature 98.2 F O2 % BldC Oximetry 92 % room air Results Test Acquired Date Facility Test Result H/L Range Note Venous Blood Gas 04/28/2021 [facility] Outpatient Testi ng (Registration) [address] [place] [phone] Venous PH 7.339 units Normal 7.330-7.430 Venous Partial Pressure Co2 67.5 mmHg High 38.0-50.0 Venous Partial Pressure O2 61.9 mmHg High 30.0-50.0 Venous Total Co2 37.6 mEq/L High 24.0-28.0 Venous Hco3 35.5 mEq/L High 23.0-27.0 Venous Base Excess 7.2 High -2.0-2.0 Venous Standard Hco3 30.9 mEq/L Normal Venous O2 Saturation 91.6 % High 60.0-80.0 Ua W/ Reflex To Culture 04/28/2021 [facility] Outpatient T esting (Registration) [address] [place] [address] [phone] Appearance, Urine RFX CLEAR Normal Clear Color, Urine RFX YELLOW Normal Yellow PH,Urine RFX 5.0 units Normal 5.0-9.0 Specific [place] Ur Auto RFX 1.011 Normal 1.002-1.035 Protein, [...] 0 /LPF Normal 0-1 Blood Culture 04/28/2021 [facility] Outpatient Testi ng (Registration) [address] [place] [address] [phone] Blood Culture No growth after <SEE NOTE> 1 Laboratory test finding 04/28/2021 [facility] Outpatient T esting (Registration) [address] [place] [address] [phone] iSTAT Lactate 0.88 Normal 0.4-2.0 Sars Flu A+B 04/28/2021 [facility] Outpatient Testi ng (Registration) [address] [place] [address] [phone] Influenza A Amplification NEGATIVE Normal Negati ve 2 Influenza B Amplification NEGATIVE Normal Negative 3 RSV Amplification NEGATIVE Normal Negative 4 Sars Covid-19 Amplification NEGATIVE Normal Negative 5 Laboratory test finding 04/28/2021 [facility] Outpatient T esting (Registration) [address] [place] [address] [phone] iSTAT Troponin 0.01 NG/ML Normal 0.00-0.08 CBC With Differential 04/28/2021 [facility] Outpatient Miles ting (Registration) [address] [place] [address] [phone] White Blood Count 8.2 10 Normal 4.0-10.0 [...] 36.0-66.0 Lymph % 22.7 % Low 24.0-44.0 [place] % 13.9 % High 2.0-8.0 Eos % 1.3 % Normal 0.0-3.0 Baso % 0.4 % Normal 0.0-1.0 Immature Granulocyte % 1.1 % Normal 0-3.0 Nucleated Red Blood Cell % 0.0 % Normal 0-0 Neutrophils # 5.0 10 Normal 1.5-8.5 Lymph # 1.9 10 Normal 1.5-5.0 [place] # 1.1 10 High 0.0-0.8 Eos # 0.1 10 Normal 0.0-0.5 Baso # 0.0 10 Normal 0.0-0.2 Cardiac Injury Profile 04/28/2021 [facility] Outpatient Te sting (Registration) [address] [place] [address] [phone] CPK Creatine Phosphokinase 105 U/L Normal 26-19 2 CK-MB Value Mass < 1.0 NG/ML Normal <3.6 MB/CK Relative Index 0.95 Normal < Or =4 6 Liver Profile 04/28/2021 [facility] Outpatient Testi ng (Registration) [address] [place] [address] [phone] Ast/Sgot 15 U/L Normal 7-37 Alt/SGPT 13 U/L Normal 12-78 Alkaline Phosphatase 107 U/L Normal 45-117 Bilirubin,Total 0.3 mg/dL Normal 0.2-1.0 Bilirubin,Direct < 0.1 mg/dL Normal 0.0-0.2 Total Protein 6.5 GM/DL Normal 6.4-8.2 Albumin 3.2 GM/DL Normal 3.2-5.2 Albumin/Globulin Ratio 1.0 Low 1.2-2.2 Basic Metabolic Profile 04/28/2021 [facility] Outpatient T esting (Registration) [address] [place] [address] [phone] Glucose, Fasting 145 mg/dL High 70-100 Blood [...] 9.1 mg/dL Normal 8.8-10.2 Blood Culture 04/28/2021 [facility] Outpatient Testi ng (Registration) [address] [place] [address] [phone] Blood Culture No growth after <SEE NOTE> 9 CBC With Differential 01/24/2021 [facility] Outpatient Miles ting (Registration) [address] [place] [address] [phone] White Blood Count 8.3 10 Normal 4.0-10.0 [...] 36.0-66.0 Lymph % 24.8 % Normal 24.0-44.0 [place] % 14.6 % High 2.0-8.0 Eos % 2.0 % Normal 0.0-3.0 Baso % 0.4 % Normal 0.0-1.0 Immature Granulocyte % 1.0 % Normal 0-3.0 Nucleated Red Blood Cell % 0.0 % Normal 0-0 Neutrophils # 4.8 10 Normal 1.5-8.5 Lymph # 2.1 10 Normal 1.5-5.0 [place] # 1.2 10 High 0.0-0.8 Eos # 0.2 10 Normal 0.0-0.5 Baso # 0.0 10 Normal 0.0-0.2 Comprehensive Metabolic Profil 01/24/2021 [facility] Outpa tient Testing (Registration) [address] [place] [address] [phone] Glucose, Fasting 181 mg/dL High 70-100 Blood [...] Ratio 1.0 Low 1.2-2.2 Hemoglobin A1c 01/24/2021 [facility] Outpatient Testi ng (Registration) [address] [place] [address] [phone] Hemoglobin A1c 8.0 % Normal 11 Estimated Average Glucose 183 mg/dL High 60-110 Laboratory test finding 01/24/2021 [facility] Outpatient T esting (Registration) [address] [place] [address] [phone] Thyroid Stimulating Hormone 1.200 uIU/ML Normal 0. [...] pathogens. DISCLAIMER: Testing was performed using the [employer] SARS-CoV-2 test. This test was developed and its performance characteristics determined by [employer]. This test has not been FDA cleared [...] Little GFR Left ESRD GFR <15 on [employer] 8 Testing was performed on a S [...] Little GFR Left ESRD GFR <15 on [employer] 11 REFERENCE RANGES: <=5.6% NORMAL 5.7-6.4% SUGGESTS IMPAIRED GLUCOSE META BOLISM/PREDIABETIC >= 6.5% ABNORMAL 12 note:<nlbl:demographic_[facility] ed> 13 note:<nlbl:demographic_[facility] ed> Procedures Date Code Description Status 01/24/2021 73555 Advanced Care Plan Explanation 1 St 30Mins Face To Face Completed 01/24/2021 63008 Office/Outpatient Established Mo d MDM 30-39 Min Completed 01/08/2021 13798 Office/Outpatient Established [facility] MDM 40-54 Min Completed 11/13/2020 79438 Office/Outpatient Established [facility] MDM 40-54 Min Completed Medical Devices Description No Information Available Encounters Type Date Location Provider Dx Diagnosis Office Visit 01/24/2021 2:00p [facility] JACKIE Suarez R53.83 Other fatigue E11.40 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, unsp F17.210 Nicotine dependence, cigaret miles, uncomplicated J44.9 Chronic obstructive pulmonar y disease, unspecified N18.30 Chronic kidney disease, stag e 3 unspecified I50.22 Chronic systolic (congestive ) heart failure Office Visit 01/08/2021 4:00p [facility] JACKIE Suarez E11.40 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, unsp F17.210 Nicotine dependence, cigaret miles, uncomplicated J44.9 Chronic obstructive pulmonar y disease, unspecified N18.30 Chronic kidney disease, stag e 3 unspecified I50.22 Chronic systolic (congestive ) heart failure G47.00 Insomnia, unspecified Assessments Date Code Description Provider 01/24/2021 R53.83 Other fatigue JACKIE Suarez 01/24/2021 E11.40 Type 2 diabetes maeve itus with diabetic neuropathy, unspecified JACKIE Suarez 01/24/2021 F17.210 Nicotine dependence, cigarettes, uncomplicated JACKIE Suarez 01/24/2021 J44.9 Chronic obstructive pulmonary di sease, unspecified JACKIE Suarez 01/24/2021 N18.30 Chronic kidney disease, stage 3 unspecified JACKIE Suarez 01/24/2021 I50.22 Chronic systolic (congestive) he art failure JACKIE Suarez 01/08/2021 E11.40 Type 2 diabetes maeve itus with diabetic neuropathy, unspecified JACKIE Suarez 01/08/2021 F17.210 Nicotine dependence, cigarettes, uncomplicated JACKIE Suarez 01/08/2021 J44.9 Chronic obstructive pulmonary di sease, unspecified JACKIE Suarez 01/08/2021 N18.30 Chronic kidney disease, stage 3 unspecified JACKIE Suarez 01/08/2021 I50.22 Chronic systolic (congestive) he art failure JACKIE Suarez 01/08/2021 G47.00 Insomnia, unspecified JACKIE Wade 11/13/2020 H66.91 Otitis media, unspecified, right ear JACKIE Suarez 11/13/2020 J02.9 Acute pharyngitis, unspecified S JACKIE Ferguson 11/13/2020 E11.40 Type 2 diabetes maeve itus with diabetic neuropathy, unspecified JACKIE Suarez 11/13/2020 F17.210 Nicotine dependence, cigarettes, uncomplicated JACKIE Suarez Plan of Treatment Future Appointment(s):* 05/17/2021 1:20 pm - JACKIE Suarez at [facility] 01/24/2021 - JACKIE Suarez* R53.83 Other fatigue* Comments:* We will check labs to evaluate further. I'll let you know of those results and further treatment plans. * Follow up:* As needed. * E11.40 Type 2 diabetes mellitus with diabetic neuropathy, unspecified* Comments:* Likely poor diabetic control noted. We will obtain labs, with further consideration being based on those results. * F17.210 Nicotine dependence, cigarettes, uncomplicated* Comments:* Smoking continues to be bad for your health. * J44.9 Chronic obstructive pulmonary disease, unspecified* Comments:* Continue with your current regimen. Appears reasonably stable currently. * N18.30 Chronic kidney disease, stage 3 unspecified * I50.22 Chronic systolic (congestive) heart failure* Comments:* Appears well compensated currently. Functional Status Description No Information Available Mental Status Description No Information Available Referrals Description No Information Available
--- OUTSIDE RECORDS SUMMARY | 2021-07-31 19:02 | CCD | Continuity of Care Document ---
Author Author Cata BUCK M.D. Organization Unknown Address [address] [place] [address] Phone [phone] Care Team Providers Care Complex Commercial Litigation Paralegal Name Role Phone Tejas Clifton [facility] [phone] Problems Description No Information Available Social History Type Date Description Comments Sex Unknown Allergies, Adverse Reactions, Alerts Active Allergies Criticality Reaction | Severity Comments Date Latex Unable to assess criticality 05/31/2021 Medications Active Medications SIG Qnty Indications Ordering Provide r Date Trelegy Ellipta 200- 62.5-25mcg/Inh Aerosol inhale 1 puff by mouth every day 60units Danielle Buck M.D. 05/31/2021 Lyrica 75mg Capsules 1 tab by mouth twice a day Unknown Doxycycline Hyclate 100mg Tablets DR take one tablet by mouth every 12 hours for 5 days Un known Cefdinir 300mg Capsules 1 tab by mouth twice a day x 5days Unknown Dicyclomine HCL 10mg Capsules 1 tab by mouth three times a day Unknown Aspirin 81mg Tablets DR 1 by mouth every day Unknown Basaglar Kwikpen 8 units everyda Unknown Ultram 50mg Tablets 1-2 tabs by mouth everyday Unknown Torsemide 20mg Tablets 2.5 tabs by mouth everyday Unknown Ultram 50mg Tablets 1-2 tabs by mouth every 4 hours as needed Unknown Protonix 40mg Tablets DR 1 tab by mouth everyday Unknown Ativan 0.5mg Tablets 1 tab by mouth as needed everyday Unknown Norvasc 5mg Tablets 1 tab by mouth everyday Unknown Allopurinol 100mg Tablets 1 tab by mouth everyday Unknown Xopenex HFA 45mcg/Act Aerosol 2 puffs qid/prn Unknown Prednisone 40 mg by mouth everyday taper down U nknown Tylenol 1 tab by mouth everyday as needed Un known Immunizations Description No Information Available Vital Signs Description No Information Available Results Description No Information Available Procedures Date Code Description Status 05/31/2021 40829 Tobacco Cessation Counseling Com pleted 05/31/2021 28754 Office/Outpatient Established Mo d MDM 30-39 Min Completed Medical Devices Description No Information Available Encounters Type Date Location Provider Dx Diagnosis Office Visit 05/31/2021 3:05p [facility] Danielle pagan M.D. 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 05/31/2021 C34.12 Malignant neoplasm of upper lobe , left bronchus or lung Danielle Buck M.D. 05/31/2021 J44.9 Chronic obstructive pulmonary di sease, unspecified Danielle Buck M.D. 05/31/2021 R09.02 Hypoxemia Danielle Buck M.D. 05/31/2021 F17.218 Nicotine dependence, cigarettes, with other nicotine-induced disorders Danielle uBck M.D. 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 PET/CT ordered. Unable to tolerate MRI without sedation. Follow-up in office in 1-2 mo with spirometry Functional Status Description No Information Available Mental Status Description No Information Available Referrals Refer to Dr Reason for Referral Status Appt Date Danielle Buck M.D. PET SCAN 53399 Created [facility], Pulmonary [address] [place] [address] [phone] Michael Del Valle M.D. newly dx small cell carcinoma Created [facility] Radiation Oncol [address] [place] [address] [phone] Hector Vazquez M.D. newly dx small cell carcinoma Created [facility] [address] [place] [address] [phone]"
--- OUTSIDE RECORDS SUMMARY | 2021-07-31 19:02 | CCD | Continuity of Care Document ---
Author Author Cata ARVIZU D.O. [place] [address] Phone [phone] Care Team Providers Care Bath Attendant Name Role Phone Tejas Clifton AUTM [phone] Problems Description No Information Available Social History Type Date Description Comments Sex Unknown Allergies, Adverse Reactions, Alerts Active Allergies Criticality Reaction | Severity Comments Date Latex Unable to assess criticality 05/31/2021 Medications Active Medications SIG Qnty Indications Ordering Provide r Date Trelegy Ellipta 200- 62.5-25mcg/Inh Aerosol inhale 1 puff by mouth every day 60units Danielle Hargrove M.D. 05/31/2021 Lyrica 75mg Capsules 1 tab by mouth twice a day Unknown Doxycycline Hyclate 100mg Tablets DR take one tablet by mouth every 12 hours for 5 days Un known Cefdinir 300mg Capsules 1 tab by mouth twice a day x 5days Unknown Dicyclomine HCL 10mg Capsules 1 tab by mouth three times a day Unknown [address] 1 by mouth every day Unknown Basaglar Kwikpen 8 units everyda Unknown Ultram 50mg Tablets 1-2 tabs by mouth everyday Unknown Torsemide 20mg Tablets 2.5 tabs by mouth everyday Unknown Ultram 50mg Tablets 1-2 tabs by mouth every 4 hours as needed Unknown [address] 1 tab by [...] Available Procedures Date Code Description Status 05/31/2021 64141 Tobacco Cessation Counseling Com pleted 05/31/2021 48593 Office/Outpatient Established Mo d MDM 30-39 Min Completed 05/29/2021 24706 Bronchoscopy W/Transbronchial Ne edle Aspiration Biopsy Completed 05/27/2021 72820 Hospital Initial Care Level 1 Co mpleted Medical Devices Description No Information Available Encounters Type Date Location Provider Dx Diagnosis Office Visit 05/31/2021 3:05p [facility] K Danielle pagan M.D. 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 05/31/2021 C34.12 Malignant neoplasm of upper lobe , left bronchus or lung Danielle Hargrove M.D. 05/31/2021 J44.9 Chronic obstructive pulmonary di sease, unspecified Danielle Hargrove M.D. 05/31/2021 R09.02 Hypoxemia Danielle Hargrove M.D. 05/31/2021 F17.218 Nicotine dependence, cigarettes, with other nicotine-induced disorders Danielle Hargrove M.D. 05/29/2021 R91.1 Solitary pulmonary nodule Danielle Hargrove M.D. 05/29/2021 R59.0 Localized enlarged lymph nodes Danielle Adames M.D. 05/28/2021 C34.90 Malignant neoplasm o f unspecified part of unspecified bronchus or lung Danielle Hargrove M.D. 05/28/2021 J18.9 Pneumonia, unspecified organism Danielle Hargrove M.D. 05/28/2021 J44.1 Chronic obstructive pulmonary disease with (acute) exacerbation Danielle Hargrove M.D. 05/28/2021 J96.11 Chronic respiratory failure with hypoxia Danielle Hargrove M.D. 05/28/2021 N17.9 Acute kidney failure, unspecifie d Danielle Hargrove M.D. 05/27/2021 C34.90 Malignant neoplasm o f unspecified part of unspecified bronchus or lung Estuardo Sears, D.O. 05/27/2021 J18.9 Pneumonia, unspecified organism Estuardo Sears, D.O. 05/27/2021 J44.1 Chronic obstructive pulmonary disease with (acute) exacerbation Estuardo Sears, D.O. 05/27/2021 J96.11 Chronic respiratory failure with hypoxia Estuardo Sears, D.O. 05/27/2021 N17.9 Acute kidney failure, unspecifie d Estuardo Sears, D.O. Plan of Treatment 05/31/2021 - Danielle Hargrove M.D.* C77.1 Secondary and unspecified malignant neoplasm [...] Reason for Referral Status Appt Date Danielle Hargrove M.D. 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 newly dx small cell carcinoma Created [facility] [address] [place] [address] [phone]"
--- OUTSIDE RECORDS SUMMARY | 2021-07-31 19:02 | CCD | Continuity of Care Document ---
Author Author Cata BUCK M.D. Organization Unknown Address [address] [place] [address] Phone [phone] Care Team Providers Care Finisher Screwdown Name Role Phone Tejas Clifton [facility] [phone] Problems Description No Information Available Social History [...] Available Procedures Date Code Description Status 05/31/2021 19124 Tobacco Cessation Counseling Com pleted 05/31/2021 69425 Office/Outpatient Established Mo d MDM 30-39 Min Completed 05/29/2021 37716 Hospital Subsequent Care Level 2 Completed 05/29/2021 09038 With Endobronchial Ultrasound Gu ided Completed 05/29/2021 63464 Bronchoscopy W/Bronchial Alveola r Lavage Completed 05/28/2021 07721 Critical Care First 30-74 Minute s Completed 05/27/2021 56278 Hospital Initial Care Level 1 Co mpleted Medical Devices Description No Information Available Encounters Type Date Location Provider Dx Diagnosis Office Visit 05/31/2021 3:05p [facility] Danielle [...] failure with hypoxia Office Visit 05/28/2021 1:23a [facility] Danielle Adames M.D. 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 Pulmonary/Thoracic Estuardo Se doe D.O. C34.90 Malignant neoplasm of unsp part [...] Localized enlarged lymph nodes Danielle Adames M.D. 05/29/2021 J44.1 Chronic obstructive pulmonary disease [...] 3:00 pm - Danielle Buck M.D. at [facility] Pulmonary/Thoracic 05/31/2021 - Danielle Buck M.D.* C77.1 Secondary [...] Appt Date Danielle Buck M.D. 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 newly dx small cell carcinoma Created [facility] [address] [place] [phone]"
--- OUTSIDE RECORDS SUMMARY | 2021-07-31 19:02 | CCD | Continuity of Care Document ---
Author Author Cata BCUK M.D. Organization Unknown Address [address] [place] [address] Phone [phone] Care Team Providers Care Classified Advertising Manager Name Role Phone Tejas Clifton [facility] [phone] Problems Description No Information Available Social History [...] Available Procedures Date Code Description Status 05/31/2021 84712 Tobacco Cessation Counseling Com pleted 05/31/2021 45116 Office/Outpatient Established Mo d MDM 30-39 Min Completed 05/29/2021 45471 Hospital Subsequent Care Level 2 Completed 05/29/2021 48015 With Endobronchial Ultrasound Gu ided Completed 05/29/2021 82468 Bronchoscopy W/Bronchial Alveola r Lavage Completed 05/27/2021 42920 Hospital Initial Care Level 1 Co mpleted Medical Devices Description No Information Available Encounters Type Date Location Provider Dx Diagnosis Office Visit 05/31/2021 3:05p [facility] Danielle Adames M.D. 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 R91.8 Other nonspecific abnormal f inding of lung field R59.0 Localized enlarged lymph nod es J44.1 Chronic obstructive pulmonar y disease w (acute) exacerbation J96.11 Chronic respiratory failure with hypoxia Office Visit 05/27/2021 1:23a [facility] Estuardo azar DOskar C34.90 Malignant neoplasm of unsp part of [...] part of unspecified bronchus or lung Estuardo Burton D.O. 05/27/2021 J18.9 Pneumonia, unspecified organism Estuardo Burton D.O. 05/27/2021 J44.1 Chronic obstructive pulmonary disease with (acute) exacerbation Estuardo Burton D.O. 05/27/2021 J96.11 Chronic respiratory failure with hypoxia Estuardo Burton D.O. 05/27/2021 N17.9 Acute kidney failure, unspecifie d Estuardo Burton D.O. Plan of Treatment 05/31/2021 - Danielle Buck [...] Appt Date Danielle Buck M.D. 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 newly dx small cell carcinoma Created [facility] [address] [place] [address] [phone]"
--- OUTSIDE RECORDS SUMMARY | 2021-07-31 19:02 | CCD | Continuity of Care Document ---
Author Author Cata BRADLEY Organization Unknown Address [address] [place] [address] [address] [place] [address] Phone [phone] Care Team Providers Care Call Or Contact Centre Team Leader Name Role Phone Marcos Sanchez M.D. [facility] [phone] Tesfaye Moore M.D. [facility] [phone] Viola Moctezuma MD [facility] [phone] [facility] [phone] Problems Active Problems Provider Date Type 2 [...] JACKIE Suarez Onset: 6 Diabetic peripheral neuropathy JACKEI Suarez Onset: 11/24/2015 Tobacco use JACKIE Suarez [...] mouth daily for pain mdd 1 istop: [id number] 22 30tabs E11.40 Kateryna Aguilar D.O. 11/13/2020 Tramadol HCL 50mg Tablets 1 tab by mouth 4 times daily as needed for severe leg pain istop #: [id number] 60tabs Kateryna Aguilar D.O. 10/10/2020 Tamsulosin HCL 0.4mg Capsules 1 by mouth every day 90caps Tommy Howell.O. 10/10 Lorazepam 0.5mg Tablets take 1 tab by mouth twice daily as needed istop reference #: [id number] 60tabs Tommy Novak.OEligio 09/19/2020 Blood Pressure Monitor/Extra Large Cuff Misc prognosis: fair, duration: 99 check blood pressure one time zina y 1unTommy Carmona.OEligio 03/27/2020 Ipratropium Purdys/Albuterol Sulfate 0.5-2.5(3)mg/3ML Solution Inhale [address] [...] 5 minutes x3 14tabs David NovakOEligio Nyamyc [id number]/GM Powder apply topically twice a day 60gm [...] Prophylactic Or Diagnostic Injection Subq/Im Injection Tommy Thomsaon.O. 05/22/2018 Immunization Administration Single Or Co mbination Injection JACKIE Suarez Immunizations CPT Code Status Date Vaccine Lot # [id number] Given 07/07/2019 Influenza Virus Vaccine, Quadrivalent, Split, Preservative Free [id number] Given 07/22/2017 Pneumococcal Con jugate Vaccine 13 Valent For Intramuscular Use [id number] U-Flu Given 07/17/2017 Influenza,Unspecified Vital Signs Date [...] H/L Range Note Venous Blood Gas 04/28/2021 [facility] Outpatient Testi ng (Registration) [address] [place] [address] [phone] Venous PH 7.339 units Normal 7.330-7.430 Venous Partial Pressure Co2 67.5 mmHg High 38.0-50.0 Venous Partial Pressure O2 61.9 mmHg High 30.0-50.0 Venous Total Co2 37.6 mEq/L High 24.0-28.0 Venous Hco3 35.5 mEq/L High 23.0-27.0 Venous Base Excess 7.2 High -2.0-2.0 Venous Standard Hco3 30.9 mEq/L Normal Venous O2 Saturation 91.6 % High 60.0-80.0 Ua W/ Reflex To Culture 04/28/2021 [facility] Outpatient T esting (Registration) [address] [place] [address] [phone] Appearance, Urine RFX CLEAR Normal Clear Color, Urine RFX YELLOW Normal Yellow PH,Urine RFX 5.0 units Normal 5.0-9.0 Specific [place] Ur Auto RFX 1.011 Normal 1.002-1.035 Protein, [...] 0 /LPF Normal 0-1 Blood Culture 04/28/2021 [facility] Outpatient Testi ng (Registration) [address] [place] [address] [phone] Blood Culture No growth after <SEE NOTE> 1 Laboratory test finding 04/28/2021 [facility] Outpatient T esting (Registration) [address] [place] [address] [phone] iSTAT Lactate 0.88 Normal 0.4-2.0 Sars Flu A+B 04/28/2021 [facility] Outpatient Testi ng (Registration) [address] [place] [address] [phone] Influenza A Amplification NEGATIVE Normal Negati ve 2 Influenza B Amplification NEGATIVE Normal Negative 3 RSV Amplification NEGATIVE Normal Negative 4 Sars Covid-19 Amplification NEGATIVE Normal Negative 5 Laboratory test finding 04/28/2021 [facility] Outpatient T esting (Registration) [address] [place] [address] [phone] iSTAT Troponin 0.01 NG/ML Normal 0.00-0.08 CBC With Differential 04/28/2021 [facility] Outpatient Miles ting (Registration) [address] [place] [address] [phone] White Blood Count 8.2 10 Normal 4.0-10.0 [...] 36.0-66.0 Lymph % 22.7 % Low 24.0-44.0 Colbert % 13.9 % High 2.0-8.0 Eos % 1.3 % Normal 0.0-3.0 Baso % 0.4 % Normal 0.0-1.0 Immature Granulocyte % 1.1 % Normal 0-3.0 Nucleated Red Blood Cell % 0.0 % Normal 0-0 Neutrophils # 5.0 10 Normal 1.5-8.5 Lymph # 1.9 10 Normal 1.5-5.0 Colbert # 1.1 10 High 0.0-0.8 Eos # 0.1 10 Normal 0.0-0.5 Baso # 0.0 10 Normal 0.0-0.2 Cardiac Injury Profile 04/28/2021 [facility] Outpatient Te sting (Registration) [address] [place] [address] [phone] CPK Creatine Phosphokinase 105 U/L Normal 26-19 2 CK-MB Value Mass < 1.0 NG/ML Normal <3.6 MB/CK Relative Index 0.95 Normal < Or =4 6 Liver Profile 04/28/2021 [facility] Outpatient Testi ng (Registration) [address] [place] [address] [phone] Ast/Sgot 15 U/L Normal 7-37 Alt/SGPT 13 U/L Normal 12-78 Alkaline Phosphatase 107 U/L Normal 45-117 Bilirubin,Total 0.3 mg/dL Normal 0.2-1.0 Bilirubin,Direct < 0.1 mg/dL Normal 0.0-0.2 Total Protein 6.5 GM/DL Normal 6.4-8.2 Albumin 3.2 GM/DL Normal 3.2-5.2 Albumin/Globulin Ratio 1.0 Low 1.2-2.2 Basic Metabolic Profile 04/28/2021 [facility] Outpatient T esting (Registration) [address] [place] [address] [phone] Glucose, Fasting 145 mg/dL High 70-100 Blood [...] 9.1 mg/dL Normal 8.8-10.2 Blood Culture 04/28/2021 [facility] Outpatient Testi ng (Registration) [address] [place] [address] [phone] Blood Culture No growth after <SEE NOTE> 9 CBC With Differential 01/24/2021 [facility] Outpatient Miles ting (Registration) [address] [place] [address] [phone] White Blood Count 8.3 10 Normal 4.0-10.0 [...] 36.0-66.0 Lymph % 24.8 % Normal 24.0-44.0 Colbert % 14.6 % High 2.0-8.0 Eos % 2.0 % Normal 0.0-3.0 Baso % 0.4 % Normal 0.0-1.0 Immature Granulocyte % 1.0 % Normal 0-3.0 Nucleated Red Blood Cell % 0.0 % Normal 0-0 Neutrophils # 4.8 10 Normal 1.5-8.5 Lymph # 2.1 10 Normal 1.5-5.0 Colbert # 1.2 10 High 0.0-0.8 Eos # 0.2 10 Normal 0.0-0.5 Baso # 0.0 10 Normal 0.0-0.2 Comprehensive Metabolic Profil 01/24/2021 [facility] Outpa tient Testing (Registration) [address] [place] [address] [phone] Glucose, Fasting 181 mg/dL High 70-100 Blood [...] Ratio 1.0 Low 1.2-2.2 Hemoglobin A1c 01/24/2021 [facility] Outpatient Testi ng (Registration) [address] [place] [address] [phone] Hemoglobin A1c 8.0 % Normal 11 Estimated Average Glucose 183 mg/dL High 60-110 Laboratory test finding 01/24/2021 [facility] Outpatient T esting (Registration) [address] [place] [address] [phone] Thyroid Stimulating Hormone 1.200 uIU/ML Normal 0. [...] pathogens. DISCLAIMER: Testing was performed using the [facility] SARS-CoV-2 test. This test was developed and its performance characteristics determined by [facility]. This test has not been FDA cleared [...] Little GFR Left ESRD GFR <15 on FUEL SYSTEM MAINTENANCE SUPERVISOR 8 Testing was performed on a S [...] Little GFR Left ESRD GFR <15 on FUEL [employer] MAINTENANCE SUPERVISOR 11 REFERENCE RANGES: <=5.6% NORMAL 5.7-6.4% SUGGESTS IMPAIRED GLUCOSE META BOLISM/PREDIABETIC >= 6.5% ABNORMAL 12 note:<nlbl:demographic_[facility] ed> 13 note:<nlbl:demographic_[facility] ed> Procedures Date Code Description Status 01/24/2021 44548 Advanced Care Plan Explanation 1 St 30Mins Face To Face Completed 01/24/2021 19073 Office/Outpatient Established Mo d MDM 30-39 Min Completed 01/08/2021 86800 Office/Outpatient Established [facility] MDM 40-54 Min Completed 11/13/2020 91631 Office/Outpatient Established [facility] MDM 40-54 Min Completed Medical Devices Description No Information Available Encounters Type Date Location Provider Dx Diagnosis Office Visit 01/24/2021 2:00p 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 JACKIE Suarez E11.40 Type 2 diabetes mellitus [...] 05/17/2021 1:20 pm - JACKIE Suarez at [facility] 01/24/2021 - JACKIE Suarez* R53.83 Other fatigue* [...]
--- OUTSIDE RECORDS SUMMARY | 2021-07-31 19:03 | CCD ---
Author Author [facility] Organization [facility] Address Unknown Phone Unavailable Care Team Providers Care Observer Helper Name Role Phone Danielle Hargrove MD Unavailable Unavailable Danielle Hargrove MD Unavailable Unavailable Danielle Hargrove MD Unavailable Unavailable Danielle Hargrove MD Unavailable Unavailable Danielle Hargrove MD Unavailable Unavailable Danielle Hargrove MD Unavailable Unavailable Danielle Hargrove MD Unavailable Unavailable Danielle Hargrove MD Unavailable Unavailable Danielle Hargrove MD Unavailable Unavailable Danielle Hargrove MD Unavailable Unavailable Danielle Hargrove MD Unavailable Unavailable Danielle aHrgrove MD Unavailable Unavailable Danielle Hargrove MD Unavailable Unavailable Danielle Hargrove MD Unavailable Unavailable Danielle Hargrove MD Unavailable Unavailable Danielle Hargrove MD Unavailable Unavailable Danielle Hargrove MD Unavailable Unavailable Danielle Hargrove MD Unavailable Unavailable Danielle Hargrove MD Unavailable Unavailable Danielle Hargrove MD Unavailable Unavailable Danielle Hargrove MD Unavailable Unavailable Danielle Hargrove MD Unavailable Unavailable Danielle Hargrove MD Unavailable Unavailable Danielle Hargrove MD Unavailable Unavailable Danielle Hargrove MD Unavailable Unavailable Danielle Hargrove MD Unavailable Unavailable Danielle Hargrove MD Unavailable Unavailable Danielle Hargrove MD Unavailable Unavailable Danielle Hargrove MD Unavailable Unavailable Danielle Hargrove MD Unavailable Unavailable Elodia, Tejas PA Unavailable Unavailable Elodia, Tejas PA Unavailable Unavailable Elodia, Tejas PA Unavailable Unavailable Elodia, Tejas PA Unavailable Unavailable Elodia, Teajs PA Unavailable Unavailable Elodia, Tejas PA Unavailable Unavailable Elodia, Tejas PA Unavailable Unavailable Elodia, Tejas PA Unavailable Unavailable Elodia, Tejas PA Unavailable Unavailable Elodia, Tejas PA Unavailable Unavailable Elodia, Tejas PA Unavailable Unavailable Elodia, Tejas PA Unavailable Unavailable Elodia, Tejas PA Unavailable Unavailable Elodia, Tejas PA Unavailable Unavailable Elodia, Tejas PA Unavailable Unavailable Elodia, Tejas PA Unavailable Unavailable Elodia, Tejas PA Unavailable Unavailable Elodia, Tejas PA Unavailable Unavailable Elodia, Tejas PA Unavailable Unavailable Elodia, Tejas PA Unavailable Unavailable Elodia, Tejas PA Unavailable Unavailable Elodia, Tejas PA Unavailable Unavailable Elodia, Tejas PA Unavailable Unavailable Elodia, Tejas PA Unavailable Unavailable Elodia, Tejas PA Unavailable Unavailable Elodia, Tejas PA Unavailable Unavailable Elodia, Tejas PA Unavailable Unavailable Elodia, Tejas PA Unavailable Unavailable Elodia, Tejas PA Unavailable Unavailable Elodia, Tejas PA Unavailable Unavailable Elodia, Tejas PA Unavailable Unavailable Elodia, Tejas PA Unavailable Unavailable Elodia, Tejas PA Unavailable Unavailable Elodia, Tejas PA Unavailable Unavailable Elodia, Tejas PA Unavailable Unavailable Elodia, Tejas PA Unavailable Unavailable Elodia, Tejas PA Unavailable Unavailable Elodia, Tejas PA Unavailable Unavailable Elodia, Tejas PA Unavailable Unavailable Elodia, Tejas PA Unavailable Unavailable Elodia, Tejas PA Unavailable Unavailable Elodia, Tejas PA Unavailable Unavailable Elodia, Tejas PA Unavailable Unavailable Elodia, Tejas PA Unavailable Unavailable Elodia, Tejas PA Unavailable Unavailable Elodia, Tejas PA Unavailable Unavailable Elodia, Tejas PA Unavailable Unavailable Elodia, Tejas PA Unavailable Unavailable Elodia, Tejas PA Unavailable Unavailable Elodia, Tejas PA Unavailable Unavailable Elodia, Tejas PA Unavailable Unavailable Elodia, Tejas PA Unavailable Unavailable Elodia, Tejas PA Unavailable Unavailable Elodia, Tejas PA Unavailable Unavailable SEARS, A HARJIT DO Unavailable Unavailable SEARS, A HARJIT DO Unavailable Unavailable SEARS, A HARJIT DO Unavailable Unavailable SEARS, A HARJIT DO Unavailable Unavailable SEARS, A HARJIT DO Unavailable Unavailable SEARS, A HARJIT DO Unavailable Unavailable SEARS, A HARJIT DO Unavailable Unavailable SEARS, A HARJIT DO Unavailable Unavailable SEARS, A HARJIT DO Unavailable Unavailable SEARS, A HARJIT DO Unavailable Unavailable SEARS, A HARJIT DO Unavailable Unavailable SEARS, A HARJIT DO Unavailable Unavailable SEARS, A HARJIT DO Unavailable Unavailable SEARS, A HARJIT DO Unavailable Unavailable SEARS, A HARJIT DO Unavailable Unavailable SEARS, A HARJIT DO Unavailable Unavailable SEARS, A HARJIT DO Unavailable Unavailable SEARS, A HARJIT DO Unavailable Unavailable SEARS, A HARJIT DO Unavailable Unavailable SEARS, A HARJIT DO Unavailable Unavailable SEARS, A HARJIT DO Unavailable Unavailable SEARS, A HARJIT DO Unavailable Unavailable SEARS, A HARJIT DO Unavailable Unavailable SEARS, A HARJIT DO Unavailable Unavailable SEARS, A HARJIT DO Unavailable Unavailable SEARS, A HARJIT DO Unavailable Unavailable SEARS, A HARJIT DO Unavailable Unavailable SEARS, A HARJIT DO Unavailable Unavailable SEARS, A HARJIT DO Unavailable Unavailable SEARS, A HARJIT DO Unavailable Unavailable SEARS, A HARJIT DO Unavailable Unavailable SEARS, A HARJIT DO Unavailable Unavailable SEARS, A HARJIT DO Unavailable Unavailable SEARS, A HARJIT DO Unavailable Unavailable SEARS, A HARJIT DO Unavailable Unavailable SEARS, A HARJIT DO Unavailable Unavailable SEARS, A HARJIT DO Unavailable Unavailable SEARS, A HARJIT DO Unavailable Unavailable SEARS, A HARJIT DO Unavailable Unavailable SEARS, A HARJIT DO Unavailable Unavailable SEARS, A HARJIT DO Unavailable Unavailable SEARS, A HARJIT DO Unavailable Unavailable SEARS, A HARJIT DO Unavailable Unavailable SEARS, A HARJIT DO Unavailable Unavailable SEARS, A HARJIT DO Unavailable Unavailable SEARS, A HARJIT DO Unavailable Unavailable SEARS, A HARJIT DO Unavailable Unavailable SEARS, A HARJIT DO Unavailable Unavailable Re-disclosure Warning The records that you are about to access may contain information from federally-assisted alcohol or drug abuse programs. If such information is present, then the following federally mandated warning applies: This information has been disclosed to you from records protected by federal confidentiality rules (42 CFR part 2). The federal rules prohibit you from making any further disclosure of this information unless further disclosure is expressly permitted by the written consent of the person to whom it pertains or as otherwise permitted by 42 CFR part 2. A general authorization for the release of medical or other information is NOT sufficient for this purpose. The Federal rules restrict any use of the information to criminally investigate or prosecute any alcohol or drug abuse patient.The records that you are about to access may contain highly sensitive health information, the redisclosure of which is protected by Article 27-F of the [facility] [place] Public Health law. If you continue you may have access to information: Regarding HIV / AIDS; Provided by facilities licensed or operated by the [facility] [place] Office of Mental Health; or Provided by the [facility] [place] Office for People With Developmental Disabilities. If such information is present, then the following [facility] [place] mandated warning applies: This information has been disclosed to you from confidential records which are protected by state law. State law prohibits you from making any further disclosure of this information without the specific written consent of the person to whom it pertains, or as otherwise permitted by law. Any unauthorized further disclosure in violation of state law may result in a fine or [place] [facility] sentence or both. A general authorization for the release of medical or other information is NOT sufficient authorization for further disc losure. Family History Family Member Name Family Member Gender Family Member Status Date o f Status Description Data Source(s) Unknown Female Problem [facility] ([facility]) Unknown Female Problem [facility] ([facility]) Unknown Female Problem [facility] ([facility]) Encounters Encounter Providers Location Date Indications Data Source(s ) Outpatient Attender: Danielle Murray/[place]/Jae bell 06/22/2021 10:00:00 AM EDT [facility] ([facility] Outpatient Attender: Tejas MEJIA [facility] 06/12/2021 04:00:00 PM EDT [facility] ([facility]) Outpatient Attender: Danielle Navarrete/[place]/Jaeheladio bell 05/31/2021 03:05:00 PM EDT [facility] ([facility] Outpatient Attender: Danielle West/Jae ray 05/29/2021 01:23:00 AM EDT [facility] ([facility]) Outpatient Attender: Danielle West/Jaeheladio bell 05/28/2021 01:23:00 AM EDT [facility] ([facility]) Outpatient Attender: HARJIT Giraldo/[place] 05/27/2021 01:23:00 AM EDT [facility] ([facility]) Outpatient Attender: Tejas MEJIA [facility] 01/24/2021 02:00:00 PM EDT [facility] ([facility]) Outpatient Attender: Tejas MEJIA [facility] 01/08/2021 04:00:00 PM EDT [facility] ([facility]) Outpatient Attender: Tejas MEJIA [facility] 11/13/2020 03:20:00 PM EST [facility] ([facility]) Outpatient Attender: Tejas MEJIA [facility] 10/09/2020 03:20:00 PM EST [facility] ([facility]) Medications Medication Brand Name Start Date Product Form Dose Route Admi nistrative Instructions Pharmacy Instructions Status Indications Reaction Description Data Source(s) 300 mg 07/26/2021 12:00:00 AM EDT capsule 20 TAKE ONE CAPSULE BY MOUTH EVERY 12 HOURS UNTIL GONE TAKE ONE CAPSULE BY MOUTH EVERY 12 HOURS UNTIL GONE SO LD: 07/27/2021 [facility] 50 mg 07/24/2021 12:00:00 AM EDT tablet 60 TAKE ONE TABLET BY MOUTH FOUR TIMES A DAY NEEDED FOR SEVERE LEG PAIN MAXIMUM DAILY DOSE = 4 TAKE ONE TABLET BY MOUTH FOUR TIMES A DAY NEEDED FOR SEVERE LEG PAIN MAXIMUM DAILY DOSE = 4 SOLD: 07/24/2021 [facility] 100 mg 07/23/2021 12:00:00 AM EDT tablet, ER multiphase 2 4 hr 30 TAKE ONE TABLET BY MOUTH EVERY DAY NEEDED FOR PAIN MAXIMUM DAILY DOSE = 1 TABLET TAKE ONE TABLET BY MOUTH EVERY DAY NEEDED FOR PAIN MAXIMUM DAILY DOSE = 1 TABLET SOLD: 07/23/2021 [facility] 1 mg 07/20/2021 12:00:00 AM EDT tablet 30 TAKE ONE TABLET BY MOUTH EVERY DAY IN THE MORNING WITH FOOD TAKE ONE TABLET BY MOUTH EVERY DAY IN MORNING WITH FOOD SOLD: 07/20/2021 [facility] 50 mg 07/17/2021 12:00:00 AM EDT tablet 60 TAKE ONE TO TWO TABLETS BY MOUTH EVERY DAY INSOMNIA TAKE ONE TO TWO TABLETS BY MOUTH EVERY DAY INSOMNIA SO LD: 07/17/2021 [facility] 10 mg 07/17/2021 12:00:00 AM EDT capsule 90 TAKE ONE CAPSULE BY MOUTH THREE TIMES A DAY NEEDED FOR ABDOMINAL PAIN TAKE ONE CAPSULE BY MOUTH THREE TIMES A DAY NEEDED FOR ABDOMINAL PAIN SOLD: 07/17/2021 [facility] 300 mg 06/26/2021 12:00:00 AM EDT capsule 20 TAKE ONE CAPSULE BY MOUTH EVERY 12 HOURS UNTIL GONE TAKE ONE CAPSULE BY MOUTH EVERY 12 HOURS UNTIL GONE SO LD: 06/26/2021 [facility] 20 mg 06/26/2021 12:00:00 AM EDT tablet 450 TAKE TWO AND ONE-HALF TABLETS BY MOUTH TWICE A DAY TAKE TWO AND ONE-HALF TABLETS BY MOUTH TWICE A DAY LEAH [facility] pantoprazole 40 MG Delayed Release Oral Tablet PANTOPRAZOLE SODIUM 06/23/2021 12:00:00 AM EDT tablet,delayed release (DR/EC) 90 T OLE ONE TABLET BY MOUTH EVERY DAY TAKE ONE TABLET BY MOUTH EVERY DAY SOLD: 06/23/2021 [facility] 160-9-4.8 mcg/actuation 06/22/2021 12:00:00 AM EDT HFA aeros ol inhaler 10 INHALE 2 PUFFS BY MOUTH TWO TIMES A DAY INHALE 2 PUFFS BY MOUTH TWO TIMES A DAY SOLD: 06/22/2021 [facility] Breztri Aerosphere Breztri Aerosphere 06/22/2021 12:00:00 AM EDT RESPIRATORY active [facility] ([facility]) 0.5 mg 06/14/2021 12:00:00 AM EDT tablet 60 TAKE ONE TABLET BY MOUTH TWICE A DAY NEEDED MAXIMUM DAILY DOSE = 2 TABLETS TAKE ONE TABLET BY MOUTH TWICE A DAY NEEDED MAXIMUM DAILY DOSE = 2 TABLETS SOLD: 06/14/2021 [facility] 75 mg 06/14/2021 12:00:00 AM EDT capsule 90 TAKE ONE CAPSULE BY MOUTH THREE TIMES A DAY MAXIMUM DAILY DOSE = 3 CAPSULES TAKE ONE CAPSULE BY MOUTH THREE TIMES A DAY MAXIMUM DAILY DOSE = 3 CAPSULES SOLD: 06/14/2021 [facility] 5 mg 06/14/2021 12:00:00 AM EDT tablet 90 TAKE ONE TABLET BY MOUTH EVERY MORNING TAKE ONE TABLET BY MOUTH EVERY MORNING SOLD: 06/14/2021 [facility] 50 mg 06/14/2021 12:00:00 AM EDT tablet 60 TAKE ONE TABLET BY MOUTH FOUR TIMES A DAY FOR SEVERE LEG PAIN MAXIMUM DAILY DOSE = 4 TABLETS TAKE ONE TABLET BY MOUTH FOUR TIMES A DAY FOR SEVERE LEG PAIN MAXIMUM DAILY DOSE = 4 TABLETS SOLD: 06/14/2021 [facility] cefdinir 300 MG Oral Capsule Cefdinir 06/13/2021 12:00:00 AM EDT ORAL completed [facility] ([facility] ) 20 mg 06/06/2021 12:00:00 AM EDT tablet 5 TAKE ONE TABLET BY MOUTH EVERY DAY TAKE ONE TABLET BY MOUTH EVERY DAY SOLD: 06/06/2021 [facility] 100 mg 06/06/2021 12:00:00 AM EDT tablet 90 TAKE ONE TABLET BY MOUTH EVERY DAY TAKE ONE TABLET BY MOUTH EVERY DAY SOLD: 06/06/2021 [facility] 200-62.5-25 mcg 06/01/2021 12:00:00 AM EDT blister with wilian ce 60 INHALE 1 PUFF BY MOUTH ONCE DAILY INHALE 1 PUFF BY MOUTH ONCE DAILY SOLD: 06/01/2021 [facility] Trelegy Ellipta Trelegy Ellipta 05/31/2021 12:00:00 AM EDT ORAL completed [facility] ([facility], ) 10 mg 05/29/2021 12:00:00 AM EDT tablet 30 TAKE 4 TABS. BY MOUTH DAILY FOR 3 DAYS, THEN 3 TABS. DAILY FOR 3 DAYS, THEN 2 TABS. DAILY FOR 3 DAYS, THEN 1 TAB. DAILY FOR 3 DAYS AND STOP TAKE 4 TABS. BY MOUTH DAILY FOR 3 DAYS, THEN 3 TABS. DAILY FOR 3 DAYS, THEN 2 TABS. DAILY FOR 3 DAYS, THEN 1 TAB. DAILY FOR 3 DAYS AND STOP SOLD: 05/31/2021 [facility] 300 mg 05/29/2021 12:00:00 AM EDT capsule 10 TAKE ONE CAPSULE BY MOUTH TWICE A DAY FOR 5 DAYS TAKE ONE CAPSULE BY MOUTH TWICE A DAY FOR 5 DAYS SOLD: 05/31/2021 [facility] 100 mg 05/29/2021 12:00:00 AM EDT capsule 10 TAKE ONE CAPSULE BY MOUTH TWICE A DAY TAKE ONE CAPSULE BY MOUTH TWICE A DAY SOLD: 05/31/2021 [facility] 20 mg 05/27/2021 12:00:00 AM EDT tablet 20 TAKE 3 TABLETS BY MOUTH DAYS 1-3 THEN 2 TABLETS DAYS 4-7 THEN TAKE ONE TABLET BY MOUTH EVERY DAY DAYS 8-10 TAKE 3 TABLETS BY MOUTH DAYS 1-3 THEN 2 TABLETS DAYS 4-7 THEN TAKE ONE TABLET BY MOUTH EVERY DAY DAYS 8-10 SOLD: 05/31/2021 [facility] 500 mg 05/27/2021 12:00:00 AM EDT tablet 5 TAKE ONE TABLET BY MOUTH EVERY DAY FOR 5 DAYS TAKE ONE TABLET BY MOUTH EVERY DAY FOR 5 DAYS SOLD: 05/31/2021 [facility] 2.5 mg /3 mL (0.083 %) 05/18/2021 12:00:00 AM EDT solu tion for nebulization 525 USE 1 VIAL BY NEBULIZER 3 - 4 TIMES PER DAY NEEDED USE 1 VIAL BY NEBULIZER 3 - 4 TIMES PER DAY NEEDED SOLD: 05/18/2021 [facility] 100 mg 05/18/2021 12:00:00 AM EDT tablet, ER multiphase 2 4 hr 30 TAKE ONE TABLET BY MOUTH EVERY DAY FOR PAIN MAXIMUM DAILY DOSE = 1 TAKE ONE TABLET BY MOUTH EVERY DAY FOR PAIN MAXIMUM DAILY DOSE = 1 SOLD: 05/18/2021 [facility] 2.5 mg /3 mL (0.083 %) 05/18/2021 12:00:00 AM EDT solu tion for nebulization 525 USE 1 VIAL BY NEBULIZER 3 - 4 TIMES PER DAY NEEDED USE 1 VIAL BY NEBULIZER 3 - 4 TIMES PER DAY NEEDED SOLD: 06/25/2021 [facility] 0.4 mg 05/14/2021 12:00:00 AM EDT capsule 90 TAKE ONE CAPSULE BY MOUTH EVERY DAY TAKE ONE CAPSULE BY MOUTH EVERY DAY SOLD: 05/14/2021 [facility] 100 mg 04/21/2021 12:00:00 AM EDT tablet, ER multiphase 2 4 hr 30 TAKE ONE TABLET BY MOUTH EVERY DAY FOR PAIN MAXIMUM DAILY DOSE = 1 TAKE ONE TABLET BY MOUTH EVERY DAY FOR PAIN MAXIMUM DAILY DOSE = 1 SOLD: 04/21/2021 [facility] 0.5 mg 04/20/2021 12:00:00 AM EDT tablet 60 TAKE ONE TABLET BY MOUTH TWICE A DAY NEEDED MAXIMUM DAILY DOSE = 2 TAKE ONE TABLET BY MOUTH TWICE A DAY NEEDED MAXIMUM DAILY DOSE = 2 SOLD: 04/20/2021 [facility] 50 mg 04/20/2021 12:00:00 AM EDT tablet 60 TAKE ONE TABLET BY MOUTH FOUR TIMES A DAY NEEDED FOR SEVERE LEG PAIN MAXIMUM DAILY DOSE = 4 TAKE ONE TABLET BY MOUTH FOUR TIMES A DAY NEEDED FOR SEVERE LEG PAIN MAXIMUM DAILY DOSE = 4 SOLD: 04/20/2021 [facility] 75 mg 04/18/2021 12:00:00 AM EDT capsule 90 TAKE ONE CAPSULE BY MOUTH THREE TIMES A DAY MAXIMUM DAILY DOSE = 3 TAKE ONE CAPSULE BY MOUTH THREE TIMES A DAY MAXIMUM DAILY DOSE = 3 SOLD: 04/20/2021 [facility] pregabalin 75 MG Oral Capsule Pregabalin 04/18/2021 12:00:00 AM EDT ORAL active [facility] ([facility]) 10 mg 04/11/2021 12:00:00 AM EDT capsule 90 TAKE ONE CAPSULE BY MOUTH THREE TIMES A DAY NEEDED FOR ABDOMINAL PAIN TAKE ONE CAPSULE BY MOUTH THREE TIMES A DAY NEEDED FOR ABDOMINAL PAIN SOLD: 04/11/2021 [facility] 10 mg 04/11/2021 12:00:00 AM EDT capsule 90 TAKE ONE CAPSULE BY MOUTH THREE TIMES A DAY NEEDED FOR ABDOMINAL PAIN TAKE ONE CAPSULE BY MOUTH THREE TIMES A DAY NEEDED FOR ABDOMINAL PAIN SOLD: 05/14/2021 [facility] 100 mg 03/22/2021 12:00:00 AM EDT tablet, ER multiphase 2 4 hr 30 TAKE ONE TABLET BY MOUTH EVERY DAY FOR PAIN MAXIMUM DAILY DOSE = 1 TABLET TAKE ONE TABLET BY MOUTH EVERY DAY FOR PAIN MAXIMUM DAILY DOSE = 1 TABLET SOLD: 03/22/2021 [facility] 0.5 mg 03/16/2021 12:00:00 AM EDT tablet 60 TAKE ONE TABLET BY MOUTH TWICE A DAY NEEDED MAXIMUM DAILY DOSE = 2 TABLETS TAKE ONE TABLET BY MOUTH TWICE A DAY NEEDED MAXIMUM DAILY DOSE = 2 TABLETS SOLD: 03/16/2021 [facility] 300 mg 03/13/2021 12:00:00 AM EDT capsule 14 TAKE ONE CAPSULE BY MOUTH TWICE A DAY TAKE ONE CAPSULE BY MOUTH TWICE A DAY SOLD: 03/13/2021 [facility] 10 mg 03/13/2021 12:00:00 AM EDT tablet 30 TAKE 4 TABLETS BY MOUTH ONCE DAILY FOR 3 DAYS, 3 TABLETS ONCE DAILY FOR 3 DAYS, 2 TABLETS ONCE DAILY FOR 3 DAYS, THEN 1 TABLET ONCE DAILY FOR 3 DAYS TAKE 4 TABLETS BY MOUTH ONCE DAILY FOR 3 DAYS, 3 TABLETS ONCE DAILY FOR 3 DAYS, 2 TABLETS ONCE DAILY FOR 3 DAYS, THEN 1 TABLET ONCE DAILY FOR 3 DAYS SOLD: 03/13/2021 [facility] 50 mg 02/23/2021 12:00:00 AM EDT tablet 60 TAKE ONE TABLET BY MOUTH FOUR TIMES A DAY NEEDED FOR SEVERE LEG PAIN MAXIMUM DAILY DOSE = 4 TABLETS TAKE ONE TABLET BY MOUTH FOUR TIMES A DAY NEEDED FOR SEVERE LEG PAIN MAXIMUM DAILY DOSE = 4 TABLETS SOLD: 02/24/2021 [facility] 100 mg 02/20/2021 12:00:00 AM EDT tablet, ER multiphase 2 4 hr 30 TAKE ONE TABLET BY MOUTH EVERY DAY FOR PAIN MAXIMUM DAILY DOSE = 1 TAKE ONE TABLET BY MOUTH EVERY DAY FOR PAIN MAXIMUM DAILY DOSE = 1 SOLD: 02/21/2021 [facility] 0.5 mg 02/15/2021 12:00:00 AM EDT tablet 60 TAKE ONE TABLET BY MOUTH TWICE A DAY NEEDED MAXIMUM DAILY DOSE = 2 TAKE ONE TABLET BY MOUTH TWICE A DAY NEEDED MAXIMUM DAILY DOSE = 2 SOLD: 02/15/2021 [facility] 24 HR Isosorbide Mononitrate 30 MG Extended Release Or al Tablet ISOSORBIDE MONONITRATE 02/11/2021 12:00:00 AM EDT tablet extended release 24 hr 90 TAKE ONE TABLET BY MOUTH EVERY MORNING TAKE ONE TABLET BY MOUTH EVERY MORNING SOLD: 02/11/2021 [facility] 24 HR Isosorbide Mononitrate 30 MG Extended Release Or al Tablet ISOSORBIDE MONONITRATE 02/11/2021 12:00:00 AM EDT tablet extended release 24 hr 90 TAKE ONE TABLET BY MOUTH EVERY MORNING TAKE ONE TABLET BY MOUTH EVERY MORNING SOLD: 05/14/2021 [facility] 75 mg 02/06/2021 12:00:00 AM EDT capsule 90 TAKE ONE CAPSULE BY MOUTH THREE TIMES A DAY, MAXIMUM DAILY DOSE = 3 TAKE ONE CAPSULE BY MOUTH THREE TIMES A DAY, MAXIMUM DAILY DOSE = 3 SOLD: 02/06/2021 [facility] 75 mg 02/06/2021 12:00:00 AM EDT capsule 90 TAKE ONE CAPSULE BY MOUTH THREE TIMES A DAY, MAXIMUM DAILY DOSE = 3 TAKE ONE CAPSULE BY MOUTH THREE TIMES A DAY, MAXIMUM DAILY DOSE = 3 SOLD: 03/07/2021 [facility] 32 gauge x 1/5" 01/26/2021 12:00:00 AM EDT needle 100 USE DAILY WITH BASAGLAR PEN USE DAILY WITH BASAGLAR PEN SOLD: 01/26/2021 [facility] 3 ML Insulin Glargine 100 UNT/ML Pen Injector [Basagla r] 100 unit/mL (3 mL) INSULIN GLARGINE,[email or web address] 01/25/2021 12:00:00 AM EDT insulin pen 15 INJECT 8UNITS UNDER THE SKIN IN THE EVENING INJECT 8UNITS UNDER THE SKIN IN THE EVENING SOLD: 07/04/2021 [facility] 3 ML Insulin Glargine 100 UNT/ML Pen Injector [Basagla r] 100 unit/mL (3 mL) INSULIN GLARGINE,[email or web address] 01/25/2021 12:00:00 AM EDT insulin pen 15 INJECT 8UNITS UNDER THE SKIN IN THE EVENING INJECT 8UNITS UNDER THE SKIN IN THE EVENING SOLD: 01/25/2021 [facility] Novotwist 01/25/2021 12:00:00 AM EDT active [facility] ([facility]) Basaglar Kwikpen Basaglar Kwikpen 01/25/2021 12:00:00 AM EDT active [facility] ([facility]) 100 mg 01/14/2021 12:00:00 AM EDT tablet, ER multiphase 2 4 hr 30 TAKE ONE TABLET BY MOUTH EVERY DAY FOR PAIN, MAXIMUM DAILY DOSE = 1 TAKE ONE TABLET BY MOUTH EVERY DAY FOR PAIN, MAXIMUM DAILY DOSE = 1 SOLD: 01/14/2021 [facility] 10 mg 01/09/2021 12:00:00 AM EDT capsule 90 TAKE ONE CAPSULE BY MOUTH THREE TIMES A DAY NEEDED FOR ABDOMINAL PAIN TAKE ONE CAPSULE BY MOUTH THREE TIMES A DAY NEEDED FOR ABDOMINAL PAIN SOLD: 02/11/2021 [facility] 50 mg 01/09/2021 12:00:00 AM EDT tablet 60 TAKE ONE TO TWO TABLETS BY MOUTH EVERY DAY INSOMNIA TAKE ONE TO TWO TABLETS BY MOUTH EVERY DAY INSOMNIA SO LD: 01/09/2021 [facility] 0.5 mg 01/09/2021 12:00:00 AM EDT tablet 60 TAKE ONE TABLET BY MOUTH TWICE A DAY NEEDED, MAXIMUM DAILY DOSE = 2 TAKE ONE TABLET BY MOUTH TWICE A DAY NEEDED, MAXIMUM DAILY DOSE = 2 SOLD: 01/09/2021 [facility] 50 mg 01/09/2021 12:00:00 AM EDT tablet 60 TAKE ONE TO TWO TABLETS BY MOUTH EVERY DAY INSOMNIA TAKE ONE TO TWO TABLETS BY MOUTH EVERY DAY INSOMNIA SO LD: 03/19/2021 [facility] 10 mg 01/09/2021 12:00:00 AM EDT capsule 90 TAKE ONE CAPSULE BY MOUTH THREE TIMES A DAY NEEDED FOR ABDOMINAL PAIN TAKE ONE CAPSULE BY MOUTH THREE TIMES A DAY NEEDED FOR ABDOMINAL PAIN SOLD: 01/09/2021 [facility] Trazodone Hydrochloride 50 MG Oral Tablet Trazodone HCL 01/08/2021 12:00:00 AM EDT ORAL completed [facility] ([facility]) 20 mg 01/01/2021 12:00:00 AM EDT tablet 10 TAKE TWO TABLETS BY MOUTH EVERY DAY TAKE TWO TABLETS BY MOUTH EVERY DAY SOLD: 01/01/2021 [facility] Azithromycin 250 MG Oral Tablet AZITHROMYCIN 01/01/2021 12:00:00 AM EDT tablet 4 TAKE ONE TABLET BY MOUTH EVERY DAY TAKE ONE TABL ET BY MOUTH EVERY DAY SOLD: 01/01/2021 [facility] 875 mg 12/29/2020 12:00:00 AM EDT tablet 20 TAKE ONE TABLET BY MOUTH TWICE A DAY UNTIL GONE TAKE ONE TABLET BY MOUTH TWICE A DAY UNTIL GONE SOLD: 12/29/2020 [facility] 50 mg 12/29/2020 12:00:00 AM EDT tablet 60 TAKE ONE TABLET BY MOUTH FOUR TIMES A DAY NEEDED FOR SEVERE LEG PAIN MAXIMUM DAILY DOSE = 4 TAKE ONE TABLET BY MOUTH FOUR TIMES A DAY NEEDED FOR SEVERE LEG PAIN MAXIMUM DAILY DOSE = 4 SOLD: 12/29/2020 [facility] pantoprazole 40 MG Delayed Release Oral Tablet PANTOPRAZOLE SODIUM 12/25/2020 12:00:00 AM EDT tablet,delayed release (DR/EC) 90 T OLE ONE TABLET BY MOUTH EVERY DAY TAKE ONE TABLET BY MOUTH EVERY DAY SOLD: 12/25/2020 [facility] pantoprazole 40 MG Delayed Release Oral Tablet PANTOPRAZOLE SODIUM 12/25/2020 12:00:00 AM EDT tablet,delayed release (DR/EC) 90 T OLE ONE TABLET BY MOUTH EVERY DAY TAKE ONE TABLET BY MOUTH EVERY DAY SOLD: 03/25/2021 [facility] 0.5 mg 12/07/2020 12:00:00 AM EST tablet 60 TAKE ONE TABLET BY MOUTH TWICE A DAY NEEDED MAXIMUM DAILY DOSE = 2 TAKE ONE TABLET BY MOUTH TWICE A DAY NEEDED MAXIMUM DAILY DOSE = 2 SOLD: 12/07/2020 [facility] 75 mg 12/01/2020 12:00:00 AM EST capsule 90 TAKE ONE CAPSULE BY MOUTH THREE TIMES A DAY MAXIMUM DAILY DOSE = 3 TAKE ONE CAPSULE BY MOUTH THREE TIMES A DAY MAXIMUM DAILY DOSE = 3 SOLD: 12/01/2020 [facility] 75 mg 12/01/2020 12:00:00 AM EST capsule 90 TAKE ONE CAPSULE BY MOUTH THREE TIMES A DAY MAXIMUM DAILY DOSE = 3 TAKE ONE CAPSULE BY MOUTH THREE TIMES A DAY MAXIMUM DAILY DOSE = 3 SOLD: 01/01/2021 [facility] 100 mg 11/16/2020 12:00:00 AM EST tablet extended release 24 hr 30 TAKE ONE TABLET BY MOUTH EVERY DAY FOR PAIN MAXIMUM DAILY DOSE = 1 TAKE ONE TABLET BY MOUTH EVERY DAY FOR PAIN MAXIMUM DAILY DOSE = 1 SOLD: 12/16/2020 [facility] 100 mg 11/16/2020 12:00:00 AM EST tablet extended release 24 hr 30 TAKE ONE TABLET BY MOUTH EVERY DAY FOR PAIN MAXIMUM DAILY DOSE = 1 TAKE ONE TABLET BY MOUTH EVERY DAY FOR PAIN MAXIMUM DAILY DOSE = 1 SOLD: 11/16/2020 [facility] 875 mg 11/14/2020 12:00:00 AM EST tablet 20 TAKE ONE TABLET BY MOUTH TWICE A DAY UNTIL GONE TAKE ONE TABLET BY MOUTH TWICE A DAY UNTIL GONE SOLD: 11/14/2020 [facility] Tramadol HCL ER (Biphasic) Tramadol HCL ER (Biphasic) 2020 12:00:00 AM EST ORAL active [facility] ([facility]) Amoxicillin 875 MG Oral Tablet Amoxicillin 11/13/2020 12:00:00 AM EST ORAL completed [facility] ([facility]) 50 mg 11/08/2020 12:00:00 AM EST tablet 28 TAKE ONE TABLET BY MOUTH FOUR TIMES A DAY NEEDED FOR SEVERE LEG PAIN MAXIMUM DAILY DOSE = 4 TAKE ONE TABLET BY MOUTH FOUR TIMES A DAY NEEDED FOR SEVERE LEG PAIN MAXIMUM DAILY DOSE = 4 SOLD: 11/08/2020 [facility] 0.5 mg 11/08/2020 12:00:00 AM EST tablet 60 TAKE ONE TABLET BY MOUTH TWICE A DAY NEEDED MAXIMUM DAILY DOSE = 2 TAKE ONE TABLET BY MOUTH TWICE A DAY NEEDED MAXIMUM DAILY DOSE = 2 SOLD: 11/08/2020 [facility] 20 mg 11/04/2020 12:00:00 AM EST tablet 450 TAKE TWO AND ONE-HALF TABLETS BY MOUTH TWICE A DAY TAKE TWO AND ONE-HALF TABLETS BY MOUTH TWICE A DAY LEAH [facility] torsemide 20 MG Oral Tablet TORSEMIDE 11/04/2020 12:00:00 AM EST table t 450 TAKE TWO AND ONE-HALF TABLETS BY MOUTH TWICE A DAY TAKE TWO AND ONE-HALF TABLETS BY MOUTH TWICE A DAY SOLD: 03/07/2021 [facility] 100 mg 11/03/2020 12:00:00 AM EST tablet 90 TAKE ONE TABLET BY MOUTH EVERY DAY TAKE ONE TABLET BY MOUTH EVERY DAY SOLD: 11/03/2020 [facility] 100 mg 11/03/2020 12:00:00 AM EST tablet 90 TAKE ONE TABLET BY MOUTH EVERY DAY TAKE ONE TABLET BY MOUTH EVERY DAY SOLD: 03/05/2021 [facility] 75 mg 11/02/2020 12:00:00 AM EST capsule 90 TAKE ONE CAPSULE BY MOUTH THREE TIMES A DAY MAXIMUM DAILY DOSE = 3 TAKE ONE CAPSULE BY MOUTH THREE TIMES A DAY MAXIMUM DAILY DOSE = 3 SOLD: 11/02/2020 [facility] 50 mg 10/24/2020 12:00:00 AM EST tablet 28 TAKE ONE TABLET BY MOUTH FOUR TIMES A DAY NEEDED FOR SEVERE LEG PAIN MAXIMUM DAILY DOSE = 4 TAKE ONE TABLET BY MOUTH FOUR TIMES A DAY NEEDED FOR SEVERE LEG PAIN MAXIMUM DAILY DOSE = 4 SOLD: 10/24/2020 [facility] 0.4 mg 10/21/2020 12:00:00 AM EST capsule 90 TAKE ONE CAPSULE BY MOUTH EVERY DAY TAKE ONE CAPSULE BY MOUTH EVERY DAY SOLD: 10/22/2020 [facility] 5 mg 10/21/2020 12:00:00 AM EST tablet 90 TAKE ONE TABLET BY MOUTH EVERY MORNING TAKE ONE TABLET BY MOUTH EVERY MORNING SOLD: 03/14/2021 [facility] 5 mg 10/21/2020 12:00:00 AM EST tablet 90 TAKE ONE TABLET BY MOUTH EVERY MORNING TAKE ONE TABLET BY MOUTH EVERY MORNING SOLD: 10/22/2020 [facility] 0.4 mg 10/21/2020 12:00:00 AM EST capsule 90 TAKE ONE CAPSULE BY MOUTH EVERY DAY TAKE ONE CAPSULE BY MOUTH EVERY DAY SOLD: 02/11/2021 [facility] 10 mg 10/10/2020 12:00:00 AM EST capsule 90 TAKE ONE CAPSULE BY MOUTH THREE TIMES A DAY NEEDED FOR ABDOMINAL PAIN TAKE ONE CAPSULE BY MOUTH THREE TIMES A DAY NEEDED FOR ABDOMINAL PAIN SOLD: 11/27/2020 [facility] Tamsulosin hydrochloride 0.4 MG Oral Capsule Tamsulosin HCL 10/10/2020 12:00:00 AM EST active [facility] ([facility]) 0.5 mg 10/10/2020 12:00:00 AM EST tablet 60 TAKE ONE TABLET BY MOUTH TWICE A DAY NEEDED MAXIMUM DAILY DOSE = 2 TABLETS TAKE ONE TABLET BY MOUTH TWICE A DAY NEEDED MAXIMUM DAILY DOSE = 2 TABLETS SOLD: 10/10/2020 [facility] 10 mg 10/10/2020 12:00:00 AM EST capsule 90 TAKE ONE CAPSULE BY MOUTH THREE TIMES A DAY NEEDED FOR ABDOMINAL PAIN TAKE ONE CAPSULE BY MOUTH THREE TIMES A DAY NEEDED FOR ABDOMINAL PAIN SOLD: 10/10/2020 [facility] 50 mg 10/10/2020 12:00:00 AM EST tablet 28 TAKE ONE TABLET BY MOUTH FOUR TIMES A DAY NEEDED FOR SEVERE LEG PAIN MAXIMUM DAILY DOSE = 4 TABLETS TAKE ONE TABLET BY MOUTH FOUR TIMES A DAY NEEDED FOR SEVERE LEG PAIN MAXIMUM DAILY DOSE = 4 TABLETS SOLD: 10/10/2020 [facility] tramadol hydrochloride 50 MG Oral Tablet Tramadol HCL 10/10/2020 12:00:00 AM EST ORAL active [facility] ([facility]) 75 mg 10/04/2020 12:00:00 AM EST capsule 90 TAKE ONE CAPSULE BY MOUTH THREE TIMES A DAY MAXIMUM DAILY DOSE = 3 TAKE ONE CAPSULE BY MOUTH THREE TIMES A DAY MAXIMUM DAILY DOSE = 3 SOLD: 10/04/2020 [facility] 0.5 mg 10/02/2020 12:00:00 AM EST tablet 30 TAKE ONE TABLET BY MOUTH EVERY 4 HOURS NEEDED MAXIMUM DAILY DOSE = 6 TAKE ONE TABLET BY MOUTH EVERY 4 HOURS NEEDED MAXIMUM DAILY DOSE = 6 SOLD: 10/02/2020 [facility] 10-325 mg 09/27/2020 12:00:00 AM EST tablet 60 TAKE ONE TABLET BY MOUTH EVERY 6 HOURS NEEDED MAXIMUM DAILY DOSE = 4 TAKE ONE TABLET BY MOUTH EVERY 6 HOURS NEEDED MAXIMUM DAILY DOSE = 4 SOLD: 09/27/2020 [facility] 75 mg 09/23/2020 12:00:00 AM EST capsule 21 TAKE ONE CAPSULE BY MOUTH THREE TIMES A DAY MAXIMUM DAILY DOSE = 3 TAKE ONE CAPSULE BY MOUTH THREE TIMES A DAY MAXIMUM DAILY DOSE = 3 SOLD: 09/23/2020 [facility] Lorazepam 0.5 MG Oral Tablet Lorazepam 09/19/2020 12:00:00 AM EST ORAL active [facility] ([facility]) 0.5 mg 09/18/2020 12:00:00 AM EST tablet 42 TAKE ONE TABLET BY MOUTH OR UNDER THE TONGUE EVERY 4 HOURS NEEDED FOR ANXIETY OR ITCHING MAXIMUM DAILY DOSE = 6 TABLETS TAKE ONE TABLET BY MOUTH OR UNDER THE TO NGUE EVERY 4 HOURS NEEDED FOR ANXIETY OR ITCHING MAXIMUM DAILY DOSE = 6 TABLETS SOLD: 09/18/2020 [facility] 10-100 mg/5 mL 09/04/2020 12:00:00 AM EST liquid 420 TAKE 5-10ML BY MOUTH EVERY 4 HOURS NEEDED MAXIMUM DAILY DOSE = 60ML TAKE 5-10ML BY MOUTH EVERY 4 HOURS NEEDED MAXIMUM DAILY DOSE = 60ML SOLD: 09/04/2020 [facility] 0.5 mg 09/04/2020 12:00:00 AM EST tablet 15 TAKE 1 TABLET BY MOUTH OR UNDER THE TONGUE EVERY 4 HOURS NEEDED FOR ANXIETY OR ITCHING MAXIMUM DAILY DOSE = 6 TAKE 1 TABLET BY MOUTH OR UNDER THE TONG UE EVERY 4 HOURS NEEDED FOR ANXIETY OR ITCHING MAXIMUM DAILY DOSE = 6 SOLD: 09/04/2020 [facility] 20 mg 08/28/2020 12:00:00 AM EST tablet 450 TAKE TWO AND ONE-HALF TABLETS BY MOUTH TWICE A DAY TAKE TWO AND ONE-HALF TABLETS BY MOUTH TWICE A DAY LEAH [facility] 75 mg 08/25/2020 12:00:00 AM EST capsule 90 TAKE ONE CAPSULE BY MOUTH THREE TIMES A DAY MAXIMUM DAILY DOSE = 3 TAKE ONE CAPSULE BY MOUTH THREE TIMES A DAY MAXIMUM DAILY DOSE = 3 SOLD: 08/25/2020 [facility] 10-100 mg/5 mL 08/16/2020 12:00:00 AM EST liquid 473 TAKE 5-10ML BY MOUTH EVERY 4 HOURS NEEDED MAXIMUM DAILY DOSE = 12 TEASPOONS TAKE 5-10ML BY MOUTH EVERY 4 HOURS NEEDED MAXIMUM DAILY DOSE = 12 TEASPOONS SOLD: 08/16/2020 [facility] 0.5 mg 08/16/2020 12:00:00 AM EST tablet 30 TAKE ONE TABLET BY MOUTH OR UNDER THE TONGUE EVERY 4 HOURS NEEDED FOR ANXIETY OR ITCHING MAXIMUM DAILY DOSE = 6 TABLETS TAKE ONE TABLET BY MOUTH OR UNDER THE TO NGUE EVERY 4 HOURS NEEDED FOR ANXIETY OR ITCHING MAXIMUM DAILY DOSE = 6 TABLETS SOLD: 08/16/2020 [facility] 2.5 mg 08/16/2020 12:00:00 AM EST tablet 90 TAKE ONE TABLET BY MOUTH EVERY DAY TAKE ONE TABLET BY MOUTH EVERY DAY SOLD: 08/16/2020 [facility] 0.4 mg 08/15/2020 12:00:00 AM EST capsule 90 TAKE ONE CAPSULE BY MOUTH EVERY DAY TAKE ONE CAPSULE BY MOUTH EVERY DAY SOLD: 08/15/2020 [facility] 5 mg 08/15/2020 12:00:00 AM EST tablet 90 TAKE ONE TABLET BY MOUTH EVERY MORNING TAKE ONE TABLET BY MOUTH EVERY MORNING SOLD: 08/15/2020 [facility] 10 mg 08/07/2020 12:00:00 AM EST capsule 45 TAKE ONE CAPSULE BY MOUTH THREE TIMES A DAY WITH MEALS TAKE ONE CAPSULE BY MOUTH THREE TIMES A DAY WITH MEALS SOLD: 10/02/2020 [facility] 10 mg 08/07/2020 12:00:00 AM EST capsule 45 TAKE ONE CAPSULE BY MOUTH THREE TIMES A DAY WITH MEALS TAKE ONE CAPSULE BY MOUTH THREE TIMES A DAY WITH MEALS SOLD: 08/07/2020 [facility] 10 mg 08/07/2020 12:00:00 AM EST capsule 45 TAKE ONE CAPSULE BY MOUTH THREE TIMES A DAY WITH MEALS TAKE ONE CAPSULE BY MOUTH THREE TIMES A DAY WITH MEALS SOLD: 09/18/2020 [facility] 2 % 08/04/2020 12:00:00 AM EDT cream 60 APPLY TOPICALLY TO BOTH FEET ONCE A DAY APPLY TOPICALLY TO BOTH FEET ONCE A DAY SOLD: 08/04/2020 [facility] 10 mg 08/03/2020 12:00:00 AM EDT capsule 45 TAKE ONE CAPSULE BY MOUTH THREE TIMES A DAY NEEDED FOR ABDOMINAL PAIN TAKE ONE CAPSULE BY MOUTH THREE TIMES A DAY NEEDED FOR ABDOMINAL PAIN SOLD: 08/03/2020 [facility] 0.5 mg 07/27/2020 12:00:00 AM EDT tablet 30 TAKE ONE TABLET BY MOUTH OR UNDER THE TONGUE EVERY 4 HOURS NEEDED FOR ANXIETY OR ITCHING MAXIMUM DAILY DOSE = 6 TABLETS TAKE ONE TABLET BY MOUTH OR UNDER THE TO NGUE EVERY 4 HOURS NEEDED FOR ANXIETY OR ITCHING MAXIMUM DAILY DOSE = 6 TABLETS SOLD: 07/27/2020 [facility] 75 mg 07/27/2020 12:00:00 AM EDT capsule 90 TAKE ONE CAPSULE BY MOUTH THREE TIMES A DAY MAXIMUM DAILY DOSE = 3 CAPSULES TAKE ONE CAPSULE BY MOUTH THREE TIMES A DAY MAXIMUM DAILY DOSE = 3 CAPSULES SOLD: 07/27/2020 [facility] Albuterol 0.833 MG/ML / Ipratropium Brom chata 0.167 MG/ML Inhalation Solution 0.5 mg-3 mg(2.5 mg base)/3 mL IPRATROPIUM/ALBUTEROL SULFATE 07/27/2020 12:00:00 AM EDT solution for nebulization 90 INHALE THE CONTENTS OF ONE VIAL VIA NEBULIZER EVERY 4 HOURS NEEDED FOR SHORTNESS OF BREATH INHALE THE CONTENTS OF ONE VIAL VIA NEBULIZER EVERY 4 HOURS NEEDED FOR SHORTNESS OF BREATH SOLD: 04/30/2021 [facility] 0.5 mg-3 mg(2.5 mg base)/3 mL 07/27/2020 12:00:0 0 AM EDT solution for nebulization 90 INHALE THE CONTENTS OF ONE VIAL VIA NEBULIZER EVERY 4 HOURS NEEDED FOR SHORTNESS OF BREATH INHALE THE CONTENTS OF ONE VIAL VIA NEBU LIZER EVERY 4 HOURS NEEDED FOR SHORTNESS OF BREATH SOLD: 07/27/2020 [facility] 100,000 unit/gram 07/27/2020 12:00:00 AM EDT powder 60 USE ON SKIN RASH TWO TIMES A DAY NEEDED USE ON SKIN RASH TWO TIMES A DAY NEEDED SOLD: 07/27/2020 [facility] 0.5 mg 07/11/2020 12:00:00 AM EDT tablet 30 TAKE 1 TABLET BY MOUTH OR UNDER THE TONGUE EVERY 4 HOURS NEEDED FOR ANXIETY OR ITCHING MAXIMUM DAILY DOSE = 6 TAKE 1 TABLET BY MOUTH OR UNDER THE TONG UE EVERY 4 HOURS NEEDED FOR ANXIETY OR ITCHING MAXIMUM DAILY DOSE = 6 SOLD: 07/11/2020 [facility] 10-100 mg/5 mL 07/11/2020 12:00:00 AM EDT liquid 473 TAKE 5ML TO 10ML BY MOUTH EVERY 4 HOURS NEEDED MAXIMUM DAILY DOSE = 60ML TAKE 5ML TO 10ML BY MOUTH EVERY 4 HOURS NEEDED MAXIMUM DAILY DOSE = 60ML SOLD: 07/11/2020 [facility] 24 HR Isosorbide Mononitrate 30 MG Extended Release Or al Tablet ISOSORBIDE MONONITRATE 07/11/2020 12:00:00 AM EDT tablet extended release 24 hr 90 TAKE ONE TABLET BY MOUTH EVERY MORNING TAKE ONE TABLET BY MOUTH EVERY MORNING SOLD: 11/05/2020 [facility] 24 HR Isosorbide Mononitrate 30 MG Extended Release Or al Tablet ISOSORBIDE MONONITRATE 07/11/2020 12:00:00 AM EDT tablet extended release 24 hr 90 TAKE ONE TABLET BY MOUTH EVERY MORNING TAKE ONE TABLET BY MOUTH EVERY MORNING SOLD: 07/11/2020 [facility] 10-100 mg/5 mL 06/30/2020 12:00:00 AM EDT liquid 300 TAKE 5-10ML BY MOUTH EVERY 4 HOURS FOR COUGH MAXIMUM DAILY DOSE = 60ML TAKE 5-10ML BY MOUTH EVERY 4 HOURS FOR COUGH MAXIMUM DAILY DOSE = 60ML SOLD: 06/30/2020 [facility] 75 mg 06/21/2020 12:00:00 AM EDT capsule 90 TAKE ONE CAPSULE BY MOUTH THREE TIMES A DAY MAXIMUM DAILY DOSE = 3 CAPSULES TAKE ONE CAPSULE BY MOUTH THREE TIMES A DAY MAXIMUM DAILY DOSE = 3 CAPSULES SOLD: 06/21/2020 [facility] 0.5 mg 06/20/2020 12:00:00 AM EDT tablet 30 TAKE 1 TABLET BY MOUTH OR UNDER THE TONGUE EVERY 4 HOURS NEEDED ANXIETY OR ITCHING MAXIMUM DAILY DOSE = 6 TAKE 1 TABLET BY MOUTH OR UNDER THE TONGUE EVERY 4 HOURS NEEDED ANXIETY OR ITCHING MAXIMUM DAILY DOSE = 6 SOLD: 06/21/2020 [facility] Codeine Phosphate 2 MG/ML / Guaifenesin 20 MG/ML Oral Soluti on Guaifenesin ac 06/19/2020 12:00:00 AM EDT ORAL completed [facility] ([facility]) 10-100 mg/5 mL 06/19/2020 12:00:00 AM EDT liquid 300 TAKE 5-10ML BY MOUTH EVERY 4 HOURS COUGH, MAXIMUM DAILY DOSE = 60ML TAKE 5-10ML BY MOUTH EVERY 4 HOURS COUGH, MAXIMUM DAILY DOSE = 60ML SOLD: 06/19/2020 [facility] pantoprazole 40 MG Delayed Release Oral Tablet PANTOPRAZOLE SODIUM 06/14/2020 12:00:00 AM EDT tablet,delayed release (DR/EC) 15 T OLE ONE TABLET BY MOUTH EVERY DAY TAKE ONE TABLET BY MOUTH EVERY DAY SOLD: 07/03/2020 [facility] pantoprazole 40 MG Delayed Release Oral Tablet PANTOPRAZOLE SODIUM 06/14/2020 12:00:00 AM EDT tablet,delayed release (DR/EC) 15 T OLE ONE TABLET BY MOUTH EVERY DAY TAKE ONE TABLET BY MOUTH EVERY DAY SOLD: 11/20/2020 [facility] pantoprazole 40 MG Delayed Release Oral Tablet PANTOPRAZOLE SODIUM 06/14/2020 12:00:00 AM EDT tablet,delayed release (DR/EC) 15 T OLE ONE TABLET BY MOUTH EVERY DAY TAKE ONE TABLET BY MOUTH EVERY DAY SOLD: 09/18/2020 [facility] 0.5 mg 06/14/2020 12:00:00 AM EDT tablet 30 TAKE 1 TABLET BY MOUTH OR UNDER THE TONGUE EVERY 4 HOURS NEEDED ANXIETY OR ITHCING MAXIMUM DAILY DOSE = 6 TAKE 1 TABLET BY MOUTH OR UNDER THE TONGUE EVERY 4 HOURS NEEDED ANXIETY OR ITHCING MAXIMUM DAILY DOSE = 6 SOLD: 06/14/2020 [facility] pantoprazole 40 MG Delayed Release Oral Tablet PANTOPRAZOLE SODIUM 06/14/2020 12:00:00 AM EDT tablet,delayed release (DR/EC) 15 T OLE ONE TABLET BY MOUTH EVERY DAY TAKE ONE TABLET BY MOUTH EVERY DAY SOLD: 06/14/2020 [facility] pantoprazole 40 MG Delayed Release Oral Tablet PANTOPRAZOLE SODIUM 06/14/2020 12:00:00 AM EDT tablet,delayed release (DR/EC) 15 T OLE ONE TABLET BY MOUTH EVERY DAY TAKE ONE TABLET BY MOUTH EVERY DAY SOLD: 10/18/2020 [facility] pantoprazole 40 MG Delayed Release Oral Tablet PANTOPRAZOLE SODIUM 06/14/2020 12:00:00 AM EDT tablet,delayed release (DR/EC) 15 T OLE ONE TABLET BY MOUTH EVERY DAY TAKE ONE TABLET BY MOUTH EVERY DAY SOLD: 08/03/2020 [facility] pantoprazole 40 MG Delayed Release Oral Tablet PANTOPRAZOLE SODIUM 06/14/2020 12:00:00 AM EDT tablet,delayed release (DR/EC) 15 T OLE ONE TABLET BY MOUTH EVERY DAY TAKE ONE TABLET BY MOUTH EVERY DAY SOLD: 11/05/2020 [facility] pantoprazole 40 MG Delayed Release Oral Tablet PANTOPRAZOLE SODIUM 06/14/2020 12:00:00 AM EDT tablet,delayed release (DR/EC) 15 T OLE ONE TABLET BY MOUTH EVERY DAY TAKE ONE TABLET BY MOUTH EVERY DAY SOLD: 07/18/2020 [facility] pantoprazole 40 MG Delayed Release Oral Tablet PANTOPRAZOLE SODIUM 06/14/2020 12:00:00 AM EDT tablet,delayed release (DR/EC) 15 T OLE ONE TABLET BY MOUTH EVERY DAY TAKE ONE TABLET BY MOUTH EVERY DAY SOLD: 09/04/2020 [facility] pantoprazole 40 MG Delayed Release Oral Tablet PANTOPRAZOLE SODIUM 06/14/2020 12:00:00 AM EDT tablet,delayed release (DR/EC) 15 T OLE ONE TABLET BY MOUTH EVERY DAY TAKE ONE TABLET BY MOUTH EVERY DAY SOLD: 12/04/2020 [facility] pantoprazole 40 MG Delayed Release Oral Tablet PANTOPRAZOLE SODIUM 06/14/2020 12:00:00 AM EDT tablet,delayed release (DR/EC) 15 T OLE ONE TABLET BY MOUTH EVERY DAY TAKE ONE TABLET BY MOUTH EVERY DAY SOLD: 08/16/2020 [facility] pantoprazole 40 MG Delayed Release Oral Tablet PANTOPRAZOLE SODIUM 06/14/2020 12:00:00 AM EDT tablet,delayed release (DR/EC) 15 T OLE ONE TABLET BY MOUTH EVERY DAY TAKE ONE TABLET BY MOUTH EVERY DAY SOLD: 10/02/2020 [facility] 10 mg 06/12/2020 12:00:00 AM EDT capsule 60 TAKE ONE CAPSULE BY MOUTH THREE TIMES A DAY NEEDED FOR ABDOMINAL PAIN TAKE ONE CAPSULE BY MOUTH THREE TIMES A DAY NEEDED FOR ABDOMINAL PAIN SOLD: 06/12/2020 [facility] 10 mg 06/12/2020 12:00:00 AM EDT capsule 60 TAKE ONE CAPSULE BY MOUTH THREE TIMES A DAY NEEDED FOR ABDOMINAL PAIN TAKE ONE CAPSULE BY MOUTH THREE TIMES A DAY NEEDED FOR ABDOMINAL PAIN SOLD: 07/10/2020 [facility] 0.4 mg 06/01/2020 12:00:00 AM EDT capsule 90 TAKE ONE CAPSULE BY MOUTH EVERY DAY TAKE ONE CAPSULE BY MOUTH EVERY DAY SOLD: 06/01/2020 [facility] Lidocaine Hydrochloride 20 MG/ML Mucous Membrane Topic al Solution Lidocaine Viscous HCL 05/25/2020 12:00:00 AM EDT completed [facility] ([facility]) 100 mg 05/19/2020 12:00:00 AM EDT tablet 90 TAKE ONE TABLET BY MOUTH EVERY DAY TAKE ONE TABLET BY MOUTH EVERY DAY SOLD: 08/28/2020 [facility] Rosuvastatin calcium 20 MG Oral Tablet ROSUVASTATIN CALCIUM 02/21/2020 12:00:00 AM EDT tablet 90 TAKE 1 TABLET BY MOUTH IN EVENING TAKE 1 TABLET BY MOUTH IN THE EVENING SOLD: 07/18/2020 [facility] Insurance Providers Payer name Policy type / Coverage type Policy ID Covered constitution party ID Covered constitution party's relationship to goldsmith Policy Goldsmith Plan Information TODAYS OPTION MEDICARE [id number] Ninfa [id number] MEDICAID [id number] Ninfa [id number] Today's Option Commercial [id number] Self [id number] WELLCARE [id number] SP [id number] MEDICARE [id number] SP [id number] WELLCARE [id number] SP [id number] TODAYS OPTIONS [id number] SP [id number] WELLCARE [id number] SP [id number] RALPH MEDICARE [id number] Ninfa [id number] RALPH MEDICARE [id number] Ninfa [id number] Wellcare Commercial [id number] Self [id number] Today's Option Commercial [id number] Self [id number] Wellcare Commercial [id number] Self [id number] Today[employer] Option Commercial [id number] Self [id number] Wellcare Commercial [id number] Self [id number] Today[employer] Option Commercial [id number] Self [id number] Well[employer] Commercial [id number] S elf [id number] Today[employer] Commercial [id number] 560.0 Self [id number] [employer] Commercial [id number] 560.0 Self [id number] [employer] Commercial [id number] 560.0 Self [id number] [employer] Commercial [id number] 560.0 Self [id number] [employer] Commercial [id number] 560.0 Self [id number] Today[employer] Commercial [id number] 560.0 Self [id number] TODAYS OPTIONS/CENTR[employer]ICAN O [id number] S [id number] Today's Option Commercial [id number] 560.0 Self [id number] Today[employer] Option Commercial [id number] 560.0 Self [id number] Today[employer] Commercial [id number] 560.0 Self [id number] Today[employer] Option Commercial [id number] 560.0 Self [id number] MEDICAID PI PI TODAYS OPTION MEDICARE PI PI TODAYS OPTION MCR -I/P [id number] 18 [id number] TODAYS OPTION -O [id number] 18 [id number] Today's Option Commercial [id number] 560.0 Self [id number] TODAYS OPTION -O/P [id number] 18 [id number] Today's Option Commercial [id number] 560.0 Self [id number] TOD[employer] OPTIONS/CENTR[employer] AFRICAN O [id number] S [id number] Today[employer] Option Commercial [id number] 560.0 Self [id number] Today[employer] Commercial [id number] 560.0 Self [id number] [employer] Commercial [id number] 560.0 Self [id number] [employer] Commercial [id number] 560.0 Self [id number] [employer] Commercial [id number] 560.0 Self [id number] [employer] Commercial [id number] 560.0 Self [id number] Today[employer] Option Commercial [id number] 0.0 Self TODAYS OPTIONS O [id number] S [id number] TODAYS OPTIONS [id number] SP [id number] MEDICARE [id number] SP [id number] A MEDICARE UNAVAILABLE SP UNAVAILA BLE MEDICARE [id number] SP [id number] WELLCARE [id number] SP [id number] MEDICARE COMPLETE [id number] SP [id number] MEDICARE COMPLETE-UHC O [id number] S [id number] MEDICARE COMPLETE [id number] SP [id number] MEDICARE COMPLETE [id number] SP [id number] WELLCARE O [id number] S [id number] Wellcare Commercial [id number] Self [id number] Today's Option Commercial [id number] Self [id number] Wellcare Commercial [id number] Self [id number] Problems, Conditions, and Diagnoses No Information Surgeries/Procedures Procedure Description Date Indications Data Source(s) OFFICE OUTPATIENT VISIT 25 MINUTES 06/22/2021 12:00:00 AM EDT [facility] ([facility], ) TOBACCO USE CESSATION INTERMEDIATE 3-10 MINUTES 2020 12:00:00 AM EDT [facility] ([facility], ) TOBACCO USE CESSATION INTENSIVE >10 MINUTES 06/22/2021 12:00:00 AM EDT [facility] ([facility], ) OFFICE OUTPATIENT VISIT 40 MINUTES 06/12/2021 12:00:00 AM EDT [facility] ([facility]) OFFICE OUTPATIENT VISIT 25 MINUTES 05/31/2021 12:00:00 AM EDT [facility] ([facility], ) TOBACCO USE CESSATION INTERMEDIATE 3-10 MINUTES 2020 12:00:00 AM EDT [facility] ([facility], ) Bronchoscopy W/Bronchial Alveolar Lavage 05/29/2021 12 :00:00 AM EDT [facility] ([facility], ) With Endobronchial Ultrasound Guided 05/29/2021 12:00: 00 AM EDT [facility] ([facility], ) SBSQ HOSPITAL CARE/DAY 25 MINUTES 05/29/2021 12:00:00 AM EDT [facility] ([facility], ) Bronchoscopy W/Transbronchial Needle Aspiration Biopsy 05/29/2021 12:00:00 AM EDT [facility] ([facility], ) CRITICAL CARE ILL/INJURED PATIENT INIT 30-74 MIN 05/28 12:00:00 AM EDT [facility] ([facility], ) INITIAL HOSPITAL CARE/DAY 30 MINUTES 05/27/2021 12:00: 00 AM EDT [facility] ([facility], ) OFFICE OUTPATIENT VISIT 25 MINUTES 01/24/2021 12:00:00 AM EDT [facility] ([facility]) Advanced Care Plan Explanation 1St 30Mins Face To Face 01/24/2021 12:00:00 AM EDT [facility] ([facility]) OFFICE OUTPATIENT VISIT 40 MINUTES 01/08/2021 12:00:00 AM EDT [facility] ([facility]) OFFICE OUTPATIENT VISIT 40 MINUTES 11/13/2020 12:00:00 AM EST [facility] ([facility]) Results ID Date Data Source [id number] 06/05/2021 09:37:00 PM EDT [facility] Name Value Range Interpretation Code Description Data Zuleyma rce(s) Supporting Document(s) SARS-CoV-2 (COVID 19) NEGATIVE - SARS-CoV-2 (COVID19) [facility] This lab was ordered by [facility] a nd reported by [facility]. ID Date Data Source [id number] 05/26/2021 07:47:00 PM EDT [facility] Name Value Range Interpretation Code Description Data Zuleyma rce(s) Supporting Document(s) SARS-CoV-2 (COVID 19) NEGATIVE - SARS-CoV-2 (COVID19) [facility] This lab was ordered by [facility] a nd reported by [facility]. ID Date Data Source [id number] 04/28/2021 04:36:00 PM EDT [facility] ([facility]) Name Value Range Interpretation Code Description Data Zuleyma rce(s) Supporting Document(s) Venous PH 7.339 units 7.330-7.430 Normal (applies to non-numeric res ults) [facility] ([facility]) Venous Partial Pressure Co2 67.5 mmHg 38.0-50.0 Above high normal [facility] ([facility]) Venous Total Co2 37.6 meq/L 24.0-28.0 Above high normal [facility] ([facility]) Venous Partial Pressure O2 61.9 mmHg 30.0-50.0 Above high normal [facility] ([facility]) Venous Base Excess 7.2 Above high normal [facility] Venous Hco3 35.5 meq/L 23.0-27.0 Above high normal [facility] Venous Standard Hco3 30.9 meq/L Normal (applies to non-num eufemia results) [facility] ([facility]) Venous O2 Saturation 91.6 % 60.0-80.0 Above high normal [facility] ([facility]) ID Date Data Source [id number] 04/28/2021 02:47:00 PM EDT [facility] ([facility]) Name Value Range Interpretation Code Description Data Zuleyma rce(s) Supporting Document(s) Appearance, Urine RFX Laboratory test result Nor mal (applies to non-numeric results) [facility] ([facility]) Color, Urine RFX Laboratory test result Normal ( applies to non-numeric results) [facility] ([facility]) PH,Urine RFX 5.0 units 5.0-9.0 Normal (applies to non-numeric res ults) [facility] SYSTEM ([facility]) Specific [place] Ur Auto RFX 1.011 1.002-1.035 Nor mal (applies to non-numeric results) [facility] Protein, Urine Auto RFX Laboratory test result N ormal (applies to non-numeric results) [facility] ([facility]) Glucose, Urine (Ua) Auto RFX Laboratory test result Normal (applies to non- numeric results) [facility] ([facility]) Urobilinogen, Urine Auto RFX 0.2 mg/dL 0.0-2.0 Nor mal (applies to non-numeric results) [facility] ([facility]) Ketone, Urine Auto RFX Laboratory test result No rmal (applies to non-numeric results) [facility] ([facility]) Nitrite, Urine Auto RFX Laboratory test result N ormal (applies to non-numeric results) [facility] ([facility]) Bilirubin, Urine Auto RFX Laboratory test result Normal (applies to non- numeric results) [facility] ([facility]) Blood, Urine Blood RFX Laboratory test result Above high n ormal [facility] ([facility]) Leukocyte Esterase Ur Auto RFX Laboratory test result Normal (applies to non- numeric results) [facility] ([facility]) WBC, Urine Auto RFX 0 /HPF 0-3 Normal (applies to non-nume sejal results) [facility] ([facility]) RBC, Urine Auto RFX 2 /HPF 0-3 Normal (applies to non-nume sejal results) [facility] ([facility]) Bacteria, Urine Auto RFX Laboratory test result Normal (applies to non-numeric results) [facility] ([facility]) Mucus, Urine RFX Laboratory test result Normal ( applies to non-numeric results) [facility] ([facility]) Squam Epithelial Cell Ur Aurfx 1 /HPF 0-6 N ormal (applies to non-numeric results) [facility] ([facility]) Hyaline Cast, Urine Auto RFX 0 /LPF 0-1 Normal (appl ies to non-numeric results) [facility] ([facility]) ID Date Data Source [id number] 04/28/2021 01:37:00 PM EDT [facility] ([facility]) Name Value Range Interpretation Code Description Data Zuleyma rce(s) Supporting Document(s) Blood Culture Laboratory test result [facility] ([facility]) No growth after 72 hours . All specimens observed for 5 days. Results final at that time. No growth after 48 hours . All specimens observed for 5 days. Results final at that time. No growth after 24 hours . All specimens observed for 5 days. Results final at that time. NO GROWTH AFTER 5 DAYS ID Date Data Source [id number] 04/28/2021 01:22:00 PM EDT [facility] ([facility]) Name Value Range Interpretation Code Description Data Zuleyma rce(s) Supporting Document(s) Laboratory test finding (navigational concept) 0.88 0 .4-2.0 Normal (applies to non-numeric results) [facility]) ID Date Data Source [id number] 04/28/2021 01:21:00 PM EDT [facility] ([facility]) Name Value Range Interpretation Code Description Data Zuleyma rce(s) Supporting Document(s) Influenza A Amplification Laboratory test result Normal (applies to non- numeric results) [facility] ([facility]) Negative results do not preclude influen za or RSV virus infection and should not be used as the sole basis for treatment or other patient management decisions. Influenza B Amplification Laboratory test result Normal (applies to non- numeric results) [facility]) Negative results do not preclude influen za or RSV virus infection and should not be used as the sole basis for treatment or other patient management decisions. RSV Amplification Laboratory test result Normal (applies to non-numeric results) [facility]) Negative results do not preclude influen za or RSV virus infection and should not be used as the sole basis for treatment or other patient management decisions. Laboratory test finding (navigational concept) Laboratory test r esult Normal (applies to non-numeric results) [facility] ([facility]) A false negative result may occur if a s pecimen is improperly collected, transported or handled. False [...] pathogens. DISCLAIMER: Testing was performed using the [employer] SARS-CoV-2 test. This test was developed and its performance characteristics determined by [employer]. This test has not been FDA cleared [...] the authorization is terminated or revoked sooner. ID Date Data Source [id number] 04/28/2021 01:21:00 PM EDT [facility] Name Value Range Interpretation Code Description Data Zuleyma rce(s) Supporting Document(s) SARS coronavirus 2 RNA [Presence] in Res piratory specimen by ERIK with probe detection NEGATIVE [facility] This lab was ordered by [facility] a nd reported by [facility]. ID Date Data Source [id number] 04/28/2021 01:09:00 PM EDT [facility] ([facility]) Name Value Range Interpretation Code Description Data Zuleyma rce(s) Supporting Document(s) Laboratory test finding (navigational concept) 0.01 ng/mL 0 .00-0.08 Normal (applies to non-numeric results) [facility] ([facility]) ID Date Data Source [id number] 04/28/2021 01:04:00 PM EDT [facility] ([facility]) Name Value Range Interpretation Code Description Data Zuleyma rce(s) Supporting Document(s) Blood Culture Laboratory test result [facility] ([facility]) No growth after 72 hours . All specimens observed for 5 days. Results final at that time. No growth after 48 hours . All specimens observed for 5 days. Results final at that time. No growth after 24 hours . All specimens observed for 5 days. Results final at that time. NO GROWTH AFTER 5 DAYS ID Date Data Source [id number] 04/28/2021 01:04:00 PM EDT [facility] ([facility]) Name Value Range Interpretation Code Description Data Zuleyma rce(s) Supporting Document(s) Blood Urea Nitrogen 40 mg/dL 7-18 Above high normal [facility] ([facility]) Creatinine For GFR 1.71 mg/dL 0.55-1.30 Above high normal [facility] ([facility]) Glucose, Fasting 145 mg/dL 70-100 Above high normal [facility] ([facility]) Glomerular Filtration Rate 30.6 Below low normal [facility] ([facility]) <content>Units are mL/min/1.73 m2</content>
<content></content>
<content>Chronic Kidney Disease Staging per NKF:</content>
<content></content>
<content>Stage I & II GFR >=60 Normal to Mildly Decreased</content>
<content>Stage III GFR 30- 59 Moderately Decreased</content>
<content>Stage IV GFR 15-29 Severely Decreased</content>
<content>Stage V GFR <15 Very Little GFR Left</content>
<content>ESRD GFR <15 on STUD SETTER</content>
<content></content> Sodium Level 141 meq/L 136-145 Normal (applies to non-numeric res ults) [facility]) Potassium Serum 4.4 meq/L 3.5-5.1 Normal (applies to non-numeric results) [facility] ([facility]) Testing was performed on a SLIGHTLY hemo lyzed specimen. Suggest recollection of specimen for more accurate test results. Carbon Dioxide Level 34 meq/L 21-32 Above high normal [facility] Chloride Level 101 meq/L 98-107 Normal (applies to non-numeric r esults) [facility] ([facility]) Anion Gap 6 meq/L 8-16 Below low normal [facility] ( [facility]) Calcium Level 9.1 mg/dL 8.8-10.2 Normal (applies to non-numeric re sults) [facility] ([facility]) ID Date Data Source [id number] 04/28/2021 01:04:00 PM EDT [facility] ([facility]) Name Value Range Interpretation Code Description Data Zuleyma rce(s) Supporting Document(s) Ast/Sgot 15 U/L 7-37 Normal (applies to non-numeric resul ts) [facility] ([facility]) Alkaline Phosphatase 107 U/L 45-117 Normal (applies to non-num eufemia results) [facility] ([facility]) Alt/SGPT 13 U/L 12-78 Normal (applies to non-numeric resul ts) [facility] ([facility]) Bilirubin,Total 0.3 mg/dL 0.2-1.0 Normal (applies to non-numeric results) [facility] ([facility]) Bilirubin,Direct Laboratory test result 0.0-0.2 Normal ( applies to non-numeric results) [facility] ([facility]) Albumin 3.2 GM/DL 3.2-5.2 Normal (applies to non-numeric resul ts) [facility] ([facility]) Total Protein 6.5 GM/DL 6.4-8.2 Normal (applies to non-numeric re sults) [facility] ([facility]) Albumin/Globulin Ratio 1.0 1.2-2.2 Below low normal [facility] ([facility]) ID Date Data Source [id number] 04/28/2021 01:04:00 PM EDT [facility]) Name Value Range Interpretation Code Description Data Zuleyma rce(s) Supporting Document(s) CPK Creatine Phosphokinase 105 U/L 26-192 Cecilia l (applies to non-numeric results) [facility] ([facility]) CK-MB Value Mass Laboratory test result Normal ( applies to non-numeric results) [facility] ([facility]) MB/CK Relative Index 0.95 Normal (applies to non-num eufemia results) [facility] ([facility]) <content>DIAGNOSIS CRITERIA</content>
<content>MMB ng/ml Relative Index (RI)</content>
<content>NON-AMI < or = 5 N/A</content>
<content>COTTRELL ZONE > 5 < or = 4</content>
<content>AMI > 5 > 4</content>
<content></content> ID Date Data Source [id number] 04/28/2021 01:04:00 PM EDT [facility] ([facility]) Name Value Range Interpretation Code Description Data Zuleyma rce(s) Supporting Document(s) Red Blood Count 4.43 10 4.00-5.40 Normal (applies to non-numeric results) [facility] ([facility]) White Blood Count 8.2 10 4.0-10.0 Normal (applies to non-numeri c results) [facility] ([facility]) Hematocrit 44.3 % 36.0-47.0 Normal (applies to non-numeric resul ts) [facility] ([facility]) Mean Corpuscular Volume 100.0 fl 80.0-96.0 Above high normal [facility] ([facility]) Hemoglobin 14.1 g/dL 12.0-15.5 Normal (applies to non-numeric resul ts) [facility] ([facility]) Mean Corpuscular Hemoglobin 31.8 pg 27.0-33.0 Norm al (applies to non-numeric results) [facility] ([facility]) Mean Corpuscular HGB Conc 31.8 g/dL 32.0-36.5 Below low normal [facility] ([facility]) Platelet Count, Automated 150 10 150-450 Normal (applies to non-numeric results) [facility] ([facility]) Red Cell Distribution Width 14.6 % 11.5-14.5 Above high normal [facility] ([facility]) Lymph % 22.7 % 24.0-44.0 Below low normal [facility] ( [facility]) Neutrophils % 60.6 % 36.0-66.0 Normal (applies to non-numeric re sults) [facility] ([facility]) [place] % 13.9 % 2.0-8.0 Above high normal [facility] ([facility]) Eos % 1.3 % 0.0-3.0 Normal (applies to non-numeric resul ts) [facility] ([facility]) Baso % 0.4 % 0.0-1.0 Normal (applies to non-numeric resul ts) [facility] ([facility]) Nucleated Red Blood Cell % 0.0 % 0-0 Normal (applies to n on-numeric results) [facility] ([facility]) Immature Granulocyte % 1.1 % 0-3.0 Normal (applies to non-n umeric results) [facility] ([facility]) Neutrophils # 5.0 10 1.5-8.5 Normal (applies to non-numeric re sults) [facility] ([facility]) Lymph # 1.9 10 1.5-5.0 Normal (applies to non-numeric resul ts) [facility] ([facility]) [place] # 1.1 10 0.0-0.8 Above high normal [facility] ([facility]) Eos # 0.1 10 0.0-0.5 Normal (applies to non-numeric resul ts) [facility] ([facility]) Baso # 0.0 10 0.0-0.2 Normal (applies to non-numeric resul ts) [facility] ([facility]) ID Date Data Source [id number] 03/11/2021 05:18:00 PM EDT [facility] Name Value Range Interpretation Code Description Data Zuleyma rce(s) Supporting Document(s) SARS-CoV-2 (COVID 19) NEGATIVE - SARS-CoV-2 (COVID19) [facility] This lab was ordered by [facility] a nd reported by [facility]. ID Date Data Source [id number] 01/24/2021 03:03:00 PM EDT [facility] ([facility]) Name Value Range Interpretation Code Description Data Zuleyma rce(s) Supporting Document(s) Thyrotropin [Units/volume] in Serum or Plasma 1.200 uIU/ML 0. 358-3.740 Normal (applies to non-numeric results) [facility] ([facility]) <content>note:<nlbl:demographic_changed> </content>
<content></content> Thyroxine (T4) free [Mass/volume] in Serum or Plasma 0.98 ng/dL 0.76-1.46 Normal (applies to non-numeric results) [facility] ([facility]) <content>note:<nlbl:demographic_changed> </content>
<content></content> ID Date Data Source [id number] 01/24/2021 03:03:00 PM EDT [facility] ([facility]) Name Value Range Interpretation Code Description Data Zuleyma rce(s) Supporting Document(s) Hemoglobin A1c 8.0 % Normal (applies to non-numeric r esults) [facility] ([facility]) <content>REFERENCE RANGES:</content><br/ ><content></content>
<content><=5.6% NORMAL</content>
<content>5.7-6.4% SUGGESTS IMPAIRED GLUCOSE METABOLISM/PREDIABETIC</content>
<content>>= 6.5% ABNORMAL</content>
<content></content> Estimated Average Glucose 183 mg/dL 60-110 Above high normal [facility] ([facility]) ID Date Data Source [id number] 01/24/2021 03:03:00 PM EDT [facility] ([facility]) Name Value Range Interpretation Code Description Data Zuleyma rce(s) Supporting Document(s) Glucose, Fasting 181 mg/dL 70-100 Above high normal [facility] Creatinine For GFR 1.98 mg/dL 0.55-1.30 Above high normal [facility] ([facility]) Blood Urea Nitrogen 28 mg/dL 7-18 Above high normal [facility] ([facility]) Glomerular Filtration Rate 25.9 Below low normal [facility] ([facility]) <content>Units are mL/min/1.73 m2</content>
<content></content>
<content>Chronic Kidney Disease Staging per NKF:</content>
<content></content>
<content>Stage I & II GFR >=60 Normal to Mildly Decreased</content>
<content>Stage III GFR 30- 59 Moderately Decreased</content>
<content>Stage IV GFR 15-29 Severely Decreased</content>
<content>Stage V GFR <15 Very Little GFR Left</content>
<content>ESRD GFR <15 on STUD SETTER</content>
<content></content> Sodium Level 138 meq/L 136-145 Normal (applies to non-numeric res ults) [facility] ([facility]) Carbon Dioxide Level 31 meq/L 21-32 Normal (applies to non-num eufemia results) [facility] ([facility]) Potassium Serum 4.3 meq/L 3.5-5.1 Normal (applies to non-numeric results) [facility] ([facility]) Chloride Level 99 meq/L 98-107 Normal (applies to non-numeric r esults) [facility] ([facility]) Calcium Level 10.1 mg/dL 8.8-10.2 Normal (applies to non-numeric re sults) [facility] ([facility]) Anion Gap 8 meq/L 8-16 Normal (applies to non-numeric resul ts) [facility] ([facility]) Ast/Sgot 5 U/L 7-37 Below low normal [facility] ( [facility]) Alt/SGPT 13 U/L 12-78 Normal (applies to non-numeric resul ts) [facility] ([facility]) Alkaline Phosphatase 123 U/L 45-117 Above high normal [facility] ([facility]) Bilirubin,Total 0.2 mg/dL 0.2-1.0 Normal (applies to non-numeric results) [facility] ([facility]) Albumin 3.4 GM/DL 3.2-5.2 Normal (applies to non-numeric resul ts) [facility] ([facility]) Total Protein 6.7 GM/DL 6.4-8.2 Normal (applies to non-numeric re sults) [facility] ([facility]) Albumin/Globulin Ratio 1.0 1.2-2.2 Below low normal [facility] ([facility]) ID Date Data Source [id number] 01/24/2021 03:03:00 PM EDT [facility] ([facility]) Name Value Range Interpretation Code Description Data Zuleyma rce(s) Supporting Document(s) Hemoglobin 15.1 g/dL 12.0-15.5 Normal (applies to non-numeric resul ts) [facility] ([facility]) White Blood Count 8.3 10 4.0-10.0 Normal (applies to non-numeri c results) [facility] ([facility]) Red Blood Count 4.71 10 4.00-5.40 Normal (applies to non-numeric results) [facility] ([facility]) Mean Corpuscular Volume 102.5 fl 80.0-96.0 Above high normal [facility] ([facility]) Hematocrit 48.3 % 36.0-47.0 Above high normal [facility] ([facility]) Mean Corpuscular Hemoglobin 32.1 pg 27.0-33.0 Norm al (applies to non-numeric results) [facility] ([facility]) Mean Corpuscular HGB Conc 31.3 g/dL 32.0-36.5 Below low normal [facility] ([facility]) Platelet Count, Automated 219 10 150-450 Normal (applies to non-numeric results) [facility] ([facility]) Red Cell Distribution Width 14.7 % 11.5-14.5 Above high normal [facility] ([facility]) [place] % 14.6 % 2.0-8.0 Above high normal [facility] ([facility]) Neutrophils % 57.2 % 36.0-66.0 Normal (applies to non-numeric re sults) [facility] ([facility]) Lymph % 24.8 % 24.0-44.0 Normal (applies to non-numeric resul ts) [facility] ([facility]) Eos % 2.0 % 0.0-3.0 Normal (applies to non-numeric resul ts) [facility] ([facility]) Immature Granulocyte % 1.0 % 0-3.0 Normal (applies to non-n umeric results) [facility] ([facility]) Baso % 0.4 % 0.0-1.0 Normal (applies to non-numeric resul ts) [facility] ([facility]) Nucleated Red Blood Cell % 0.0 % 0-0 Normal (applies to n on-numeric results) [facility] ([facility]) Neutrophils # 4.8 10 1.5-8.5 Normal (applies to non-numeric re sults) [facility] ([facility]) Eos # 0.2 10 0.0-0.5 Normal (applies to non-numeric resul ts) [facility] ([facility]) Lymph # 2.1 10 1.5-5.0 Normal (applies to non-numeric resul ts) [facility] ([facility]) [place] # 1.2 10 0.0-0.8 Above high normal [facility] ([facility]) Baso # 0.0 10 0.0-0.2 Normal (applies to non-numeric resul ts) [facility] ([facility]) ID Date Data Source [id number] 12/31/2020 09:52:00 PM EDT [facility] Name Value Range Interpretation Code Description Data Zuleyma rce(s) Supporting Document(s) SARS coronavirus 2 RNA [Presence] in Res piratory specimen by ERIK with probe detection NEGATIVE [facility] This lab was ordered by [facility] a nd reported by [facility]. Procedure Social History No Information Vital Signs ID Date Data Source UNK Name Value Range Interpretation Code Description Data Source(s) Systolic blood pressure 126 mm[Hg] 126 mm[Hg] [facility] ([facility]) Diastolic blood pressure 52 mm[Hg] 52 mm[Hg] [facility] ([facility]) Heart rate 76 /min 76 /min [facility] ([facility]) Respiratory rate 22 /min 22 /min [facility] ( [facility]) Body temperature 98.3 [degF] 98.3 [degF] [facility] ([facility]) Oxygen saturation in Arterial blood by Pulse oximetry 92 % 92 % [facility] ([facility]) room air Systolic blood pressure 132 mm[Hg] 132 mm[Hg] [facility] Diastolic blood pressure 86 mm[Hg] 86 mm[Hg] [facility] ([facility]) Body weight 201.00 [lb_av] 201.00 [lb_av] [facility] ([facility]) per pt Heart rate 85 /min 85 /min [facility] ([facility]) Respiratory rate 22 /min 22 /min [facility] ( [facility]) Body temperature 98.6 [degF] 98.6 [degF] [facility] ([facility]) Oxygen saturation in Arterial blood by Pulse oximetry 90 % 90 % [facility] ([facility]) Diastolic blood pressure 68 mm[Hg] 68 mm[Hg] [facility] ([facility]) Respiratory rate 20 /min 20 /min [facility] ( [facility]) Heart rate 72 /min 72 /min [facility] ([facility]) Body temperature 98.2 [degF] 98.2 [degF] [facility] ([facility]) Oxygen saturation in Arterial blood by Pulse oximetry 92 % 92 % [facility] ([facility]) room air Systolic blood pressure 138 mm[Hg] 138 mm[Hg] [facility] ([facility] Systolic blood pressure 130 mm[Hg] 130 mm[Hg] [facility] ([facility]) Diastolic blood pressure 64 mm[Hg] 64 mm[Hg] [facility] ([facility]) Heart rate 83 /min 83 /min [facility] Respiratory rate 18 /min 18 /min [facility] ( [facility] Body temperature 98.4 [degF] 98.4 [degF] [facility] ([facility]) Oxygen saturation in Arterial blood by Pulse oximetry 93 % 93 % [facility] ([facility]) Systolic blood pressure 120 mm[Hg] 120 mm[Hg] [facility] Diastolic blood pressure 66 mm[Hg] 66 mm[Hg] [facility] ([facility]) Heart rate 73 /min 73 /min [facility] ([facility]) Respiratory rate 20 /min 20 /min [facility] ( [facility] Body temperature 98.6 [degF] 98.6 [degF] [facility] ([facility]) Oxygen saturation in Arterial blood by Pulse oximetry 96 % 96 % [facility] ([facility])
== END 2021-07-31 19:53 | disposition left against medical advice (07) ==
LOC: M ED 18:23 → EDBD 18:23 → M ED 19:53
DX: R06.00 Dyspnea, unspecified (principal); E11.9 Type 2 diabetes mellitus without complications; I11.0 Hypertensive heart disease with heart failure; I50.9 Heart failure, unspecified; N18.30 Chronic kidney disease, stage 3 unspecified; F41.9 Anxiety disorder, unspecified; K21.9 Gastro-esophageal reflux disease without esophagitis; E78.5 Hyperlipidemia, unspecified; Z99.81 Dependence on supplemental oxygen; Z79.899 Other long term (current) drug therapy; Z79.82 Long term (current) use of aspirin; Z88.5 Allergy status to narcotic agent; Z88.8 Allergy status to other drugs, medicaments and biological substances; Z91.040 Latex allergy status